=== PATIENT | male | born 1945 | race Caucasian/White ===

== ENCOUNTER 2022-07-07 11:53 | Outpatient (CLI) | payer MEDICARE, BC, SELFPAY ==
--- OUTSIDE RECORDS SUMMARY | 2022-07-07 11:56 | XMS_ITS | Encounter Summary ---
:1945 Author Organization [facility] Address [address] [place] [address] Care Team Providers Name Role Phone Kendy Bahena, Ch.B. Primary Care Provider [phone] Reason for Referral Outpatient (Routine) - Closed Specialty Diagnoses / Procedures Referred By Contact Refer red To Contact Diagnoses Elevated Prostate-Specific Antigen Alexy Yuan M.D. [facility] Procedures URO Prostate transperineal biopsy [address] [place] [address] Referral ID Status Reason Start Date Expiration Date Visits Requ ested Visits Authorized [id number] Closed 06/06/2022 06/06/2023 1 1 Encounter Details Date Type Department Care Team Description 06/06/2022 Documentation Department of Urology in Kathy Yuan M.D. [place], [place] [address] [facility] [address] [place] [phone] (Wo rk) Social History Tobacco Use Types Packs/Day Years Used Date Smoking Tobacco: Never Smokeless Tobacco: Never Alcohol Use Standard Drinks/Week Comments Yes 6 (1 standard drink = 0.6 oz pure alcoho l) Alcohol Habits Answer Date Recorded How often do you have a drink containing 4 or more times a w resighini 02/05/2022 alcohol? How many drinks containing alcohol do you have 1 or 2 04/15/2021 on a typical day when you are drinking? How often do you have six or more drinks on one Never 02/05/2022 occasion? Social Isolation Answer Date Recorded In a typical week, how many times do you More than three sandrita es a week 04/15/2021 talk on the phone with family, friends, or neighbors? How often do you get together with friends Three times a wee k 02/05/2022 or relatives? How often do you attend mormonism or More than 4 times per year 04/15/2021 hinduism services? Do you belong to any clubs or Yes 02/05/2022 organizations such as mormonism groups, unions, fraternal or athletic groups, or school groups? How often do you attend meetings of the More than 4 times pe r year 02/05/2022 clubs or organizations you belong to? Are you now , , , 02/05/2022 , never or living with a partner? Physical Activity Answer Date Recorded On average, how many days per week do you engage in moderate to 4 days 02/05/2022 strenuous exercise (like walking fast, running, jogging, dancing, swimming, biking, or other activities that cause a light or heavy sweat)? On average, how many minutes do you engage in exercise at th is 60 min 04/15/2021 level? Stress Answer Date Recorded Do you feel stress - tense, restless, nervous, or Only a lit tle 02/05/2022 anxious, or unable to sleep at night because your mind is troubled all the time - these days? Financial Resource Strain Answer Date Recorded How hard is it for you to pay for the very basics like Not h sylvia at all 02/05/2022 food, housing, medical care, and heating? Intimate Partner Violence Answer Date Recorded Within the last year, have you been afraid of your partner o r No 02/05/2022 ex-partner? Within the last year, have you been humiliated or emotionall y No 04/15/2021 abused in other ways by your partner or ex-partner? Within the last year, have you been kicked, hit, slapped, or No 02/05/2022 otherwise physically hurt by your partner or ex-partner? Within the last year, have you been raped or forced to have any No 04/15/2021 kind of sexual activity by your partner or ex-partner? Food Insecurity Answer Date Recorded Within the past 12 months, you worried that your food would Never true 02/05/2022 run out before you got money to buy more. Within the past 12 months, the food you bought just didn't N ever true 02/05/2022 last and you didn't have money to get more. Transportation Needs Answer Date Recorded In the past 12 months, has lack of transportation kept you f rom No 02/05/2022 medical appointments or from getting medications? In the past 12 months, has lack of transportation kept you f rom No 02/05/2022 meetings, work, or getting things needed for daily living? Housing Stability Answer Date Recorded In the last 12 months, was there a time when you were not ab le No 02/05/2022 to pay the mortgage or rent on time? In the last 12 months, how many places have you lived? 3 02/05/2022 In the last 12 months, was there a time when you did not hav e a No 02/05/[address] or slept in a group home (including now)? Education Answer Date Recorded What is the highest level of school Master's degree (e.g., M A, MS, 03/28/2019 you have completed or the highest Doreen, MEd, VENTILATED RIB FITTER, EMELYN) degree you have received? Sex Assigned at Date Recorded Male 03/27/2018 8:35 PM CDT documented as of this encounter Progress Notes Alexy Yuan M.D. - 06/06/2022 12:56 PM CDT I attempted to call Mr. Sheldon by phone but was again unable to reach him. I did leave a message. He is interested in pursuing a prostate biopsy. He will need a urine culture 10 days prior to the biopsy. He may obtain this locally through his family medical doctor or alternatively, I have placed an order for urine culture if there is a facility near [place] where he may have the urine culture drawn. The office biopsy order has been placed. [facility] sent a prescription for Bactrim to be taken 1 hour prior to the biopsy. I requested he call our appointment line to schedule the biopsy. Also did inform him by message that the biopsy would unlikely be able to be done within the next 10 days and he would be unlikely to have a follow-up visit in the next 10 days. I will send him a portal message with the specifics of the biopsy. We will be pursuing a transperineal biopsy procedure. The risks include infection, bleeding, temporary erectile dysfunction, as well as potential of vasovagal response given that a transrectal probe isstill introduced for purposes of imaging the prostate. You will be on your back with your legs up in stirrups. This procedure would be performed under local anesthesia. Local anesthesia will be administered to the perineum and thus you should only feel pressure sensation during the biopsy No enema is needed. documented in this encounter Plan of Treatment Upcoming Encounters Date Type Specialty Care Team Description 07/22/2022 Office Visit Urology Alexy Yuan M .D. [address] [place] [address] [phone] (Meir cronin) 07/22/2022 Appointment Radiation Oncology Sun oHpe M.D., Ph.D. [address] [place] [address] [phone] (Meir cronin) documented as of this encounter Results [place] BIOPSY PROSTATE NEEDLE/PUNCH, [place] MRI IMAGE FUSION (06/29/2022 9:00 AM CDT) Specimen (Source) Anatomical Location Collection Method / Collectio n Time Received Time / Laterality Volume Narrative Concepción Yao APRN, C.N.P., D.N.P. - 06/29/2022 9:00 AM CDT Concepción Yao APRN C.N.P., D.N.P. ? 06/29/2022 ??9:57 AM URO Prostate transperineal biopsy Performed by: Concepción Yao APRN, C .N.P., D.N.P. Authorized by: Alexy Yuan M.D. Care team members present 1. Concepción Yao APRN, C.N.PJulian, D.N. P. 2. Jackeline Montes L.P.N. 3. Tasneem Malloy L.P.N. IMPRESSION ?? indeterminate prostate lesion PROCEDURE DETAILS Position: ??Dorsal lithotomy Biopsy option(s) include: MR Fusion Biopsy type: transperineal Antibiotics at time of procedure: yes ?? Region(s) of interest: ??CHARLES #1 CHARLES # 1 - location: ??right, transitiona l/central zone, anterior CHARLES # 1 - PiRADS: ??5 CHARLES # 1 - number of cores: ??4 BIOPSY DETAILS ?? Systemic biopsy completed at time of pro cedure: yes ?Right prostate lobe - number of biops ies: ??6 ??Left prostate lobe - number of biopsi es: ??7 Seminal vesicle biopsy NOT completed at time of procedure: Seminal vesicle biopsy ULTRASOUND DETAILS: URONAV 3D used to localize target, iden tify at risk structures, and dynamically used to direct therapy to th e target. Image(s) acquired and saved. ADDITIONAL DETAILS: Known prostate cancer: no ?? History of prior negative prostate biops y: yes ?? Is this the first prostate biopsy?: no ? ? CONSENT Consent obtained: written UNIVERSAL PROTOCOL All relevant documentation and testing w ere reviewed and available. All required blood products, implants, devic es and or special equipment were made available as applicable. Pre-proced ure verification was conducted and the correct site was marked if required. A fire risk assessment was done as applicable. The procedural time-out t o verify correct patient, correct side/site, and procedure was conducted p rior to performing the procedure and confirmed in a procedural pause. PRE PROCEDURE DETAILS Procedure purpose: ??Diagnostic Indications: ??Elevated PSA Digital rectal exam findings: ??Asymmetr ical, increasing prominence noted along right lateral apex Appropriate hand hygiene, gown, cap, mas k, protective eyewear, sterile gloves, skin preparation, sterile drape, and strict aseptic technique were utilized as applicable for the procedure .: yes ?? Skin preparation: ??Chlorhexidine SEDATION / ANESTHESIA Anesthesia method: local infiltration POST PROCEDURE DETAILS Procedure completed successfully: yes ?? Complications: ??None COMMENTS Ultrasound imaging utilized to assist in biopsying target lesion. ??Images saved. Pain scale (1-10) during local infiltrat ion: 3/10 Pain scale (1-10) during prostate biopsy : 3/10 Prostate measurements: Length (mm) ??41.2 Height (mm) 29.5 Width (mm) 49.0 Volume 31.1 Alexy Yuan M.D. UROLOGY ORDERABLES (ABNORMAL) Bacterial Culture, Aerobic + Susc, Urine (06/17/2022 2:11 PM CDT) [facility] gist Method Time Signature Urine Culture Mixed 06/18/2022 [facility] microbiota (A) 3:36 PM CDT Specimen Anatomical Collection Method Collection Time Receive d Time (Source) Location / / Volume Laterality Urine (Urine, 06/17/2022 2:11 PM 06/17/20 7:30 Midstream) CDT PM CDT Comment: Specimen Source Site: Urine Alexy Yuan M.D. LAB MICROBIOLOGY - GENERAL O RDERABLES Performing Organization Address City/State/ZIP Code Phon e Number [facility]- [address] [place], [place] [id number] [place] [address] [address] documented in this encounter Visit Diagnoses Diagnosis Elevated Prostate-Specific Antigen - Kathryn young Elevated Prostate-Specific Antigen - Kathryn young documented in this encounter Care Teams Sourcing Associate Relationship Specialty Start Date End Date Kendy Bahena M.B., Ch.B. PCP - General 02/26/22 [address] [place] [phone] documented as of this encounter
--- OUTSIDE RECORDS SUMMARY | 2022-07-07 11:56 | XMS_ITS | Encounter Summary ---
:1945 Author Organization [facility] Address [address] [place] [address] Care Team Providers Name Role Phone Kendy Bahena, Ch.B. Primary Care Provider [phone] Encounter Details Date Type Department Care Team Description 06/29/2022 Ancillary Procedure Department of Urology Social History Tobacco Use Types Packs/Day Years Used Date Smoking Tobacco: Never Smokeless Tobacco: Never Alcohol Use Standard Drinks/Week Comments Yes 6 (1 standard drink = 0.6 oz pure alcoho l) Alcohol Habits Answer Date Recorded How often do you have a drink containing 4 or more times a w elim ira 02/05/2022 alcohol? How many drinks containing alcohol [...] or relatives? How often do you attend restoration or More than 4 times per year 04/15/2021 bahai services? Do you belong to any clubs or Yes 02/05/2022 organizations such as restoration groups, unions, fraternal or athletic groups, or [...] place to sleep or slept in a snf (including now)? Education Answer Date Recorded What is the highest level of school Master's degree (e.g., M [place], MS, 03/28/2019 you have completed or the highest Doreen, MEd, ORGAN ASSEMBLER, EMELYN) degree you have received? Sex Assigned at Date Recorded Male 03/27/2018 8:35 PM CDT documented as of this encounter Plan of Treatment Upcoming Encounters Date Type Specialty Care Team Description 07/22/2022 Office Visit Urology Alexy Yuan M .D. [address] [place] [address] [phone] (Wo rk) 07/22/2022 Appointment Radiation Oncology Sun Hope M.D., Ph.D. [address] [place] [address] [phone] (Wo rk) documented as of this encounter Procedures Procedure Name Priority Date/Time Associated Diagnosis Comme nts UROLOGY IMAGE EXAM Routine 06/29/2022 9:10 AM Res ults for this CDT procedure are i n the results section. documented in this encounter Results Non-Radiology Image-Urology Image Exam (06/29/2022 9:10 AM CDT) Specimen (Source) Anatomical Collection Method Collection Time Re ceived Time Location / / Volume Laterality 06/29/2022 9:07 AM CDT Narrative [facility] - 06/29/2022 9:30 AM CDT This order has been created and auto-finalized to support the import of images acquired without order. The clini opal documentation to support these images can be found on the encounter boris t produced images. Provider Not In System IMG NON RAD IMAGING PROCEDUR ES Performing Organization Address City/State/ZIP Code Phon e Number [facility] NA documented in this encounter Visit Diagnoses Not on filedocumented in this encounter Care Teams Conservation Coordinator Relationship Specialty Start Date End Date Parpia, Kendy A, M.B., Ch.B. PCP - General 02/26/22 [address] [place] [phone] documented as of this encounter
--- OUTSIDE RECORDS SUMMARY | 2022-07-07 11:56 | XMS_ITS | Encounter Summary ---
:1945 Author Organization [facility] Address [address] [place] [address] Care Team Providers Name Role Phone Kendy Bahena, Ch.B. Primary Care Provider Reason for Referral MRI/CAT/PET Scan (Routine) - Closed Specialty Diagnoses / Procedures Referred By Contact Refer red To Contact Radiology Diagnoses Elevated Prostate-Specific Antigen Koffi Garrido M.D. [facility] Procedures MR Prostate without and with IV Contrast [address] [place] [phone] Referral ID Status Reason Start Date Expiration Date Visits Requ ested Visits Authorized [id number] Closed 06/11/2022 06/11/2023 1 1 Reason for Visit MRI/CAT/PET Scan (Routine) - Closed Specialty Diagnoses / Procedures Referred By Contact Refer red To Contact Radiology Diagnoses Elevated Prostate-Specific Antigen Koffi Garrido M.D. [facility] Procedures MR Prostate without and with IV Contrast [address], [place] [address] Referral ID Status Reason Start Date Expiration Date Visits Requ ested Visits Authorized [id number] Closed 06/11/2022 06/11/2023 1 1 Encounter Details Date Type Department Care Team Description 06/18/2022 Hospital Encounter Department of Trent GarridoTwyla M.D. Prostate-Specific Building, in [address] [place], [place] [address] [place] [phone] Social History Tobacco Use Types Packs/Day Years Used Date Smoking Tobacco: Never Smokeless Tobacco: Never Alcohol Use Standard Drinks/Week Comments Yes 6 (1 standard drink = 0.6 oz pure alcoho l) Alcohol Habits Answer Date Recorded How often do you have a drink containing 4 or more times a w apache 02/05/2022 alcohol? How many drinks containing alcohol [...] or relatives? How often do you attend gnosticism or More than 4 times per year 04/15/2021 mu-ism services? Do you belong to any clubs or Yes 02/05/2022 organizations such as gnosticism groups, unions, fraternal or athletic groups, or [...] place to sleep or slept in a intermediate (including now)? Education Answer Date Recorded What is the highest level of school Master's degree (e.g., M A, MS, 03/28/2019 you have completed or the highest Doreen, MEd, INDEPENDENT LIVING INSTRUCTOR, EMELYN) degree you have received? Sex Assigned at Date Recorded Male 03/27/2018 8:35 PM CDT documented as of this encounter Medications at Time of Discharge Medication Sig Dispensed Refills Start Date End Date acetaminophen (TYLENOL) Take 100 mg by mouth 0 500 mg tablet 3 (three) times a day. aspirin 81 mg chewable Chew 1 tablet daily. 0 03/2013 tablet atorvastatin (LIPITOR) 80 Take 1 tablet (80 mg 90 tablet 3 04/23/2022 mg tabletIndications: total) by mouth Coronary Artery Disease daily. Without Angina Pectoris, Hyperlipidemia cefdinir (OMNICEF) 300 mg Take 1 capsule (300 10 capsule 0 1 capsule mg total) by mouth 2 (two) times a day before breakfast and dinner. losartan (COZAAR) 50 mg Take 1 tablet (50 mg 90 tablet 3 tablet total) by mouth daily. metoprolol succinate TAKE ONE TABLET BY 90 tablet 3 021 (TOPROL-XL) 25 mg 24 hr MOUTH EVERY DAY tabletIndications: Coronary Artery Disease Without Angina Pectoris, Hypertension Essential Primary nitroglycerin (NITROSTAT) Place 1 tablet (0.4 25 tablet 11 0 03/29/2019 0.4 mg SL mg total) under the tabletIndications: tongue as needed for Coronary Artery Disease chest pain. Place 1 Without Angina Pectoris tab under the tongue at first sign of chest pain. If no relief in 5 min, call 911. Repeat dose every 5 min up to 2 additional doses if chest pain continues. sulfamethoxazole-trimetho 0 06/06/2022 prim (BACTRIM DS) 800-160 mg per tablet documented as of this encounter Nursing Notes Cami Garvin R.N. - 06/18/2022 5:45 PM CDT Glucagon Administration Screening: Does patient have an allergy to glucagon or lactose (e.g. hives, difficulty breathing, anaphylaxis, necrolytic migratory erythema)? Note: nausea vomiting, bloating, and diarrhea are common and expected adverse effects of glucagon and/or lactose intolerance. NO If no???continue. Does patient have a history of insulinoma or phenochromocytoma? NO If no???continue. If yes, discusswith Radiologist. Does patient have diabetes? NO If no.. continue.. If yes??? initiate nurse initiated protocol to order POC blood glucose . If yes and insulin dependent, provide patient with Glucagon Injections if you Have Diabetes card. What is patient's glucose? Not diabetic - less than 70 treat f using Hypoglycemia Nurse Initiated Protocol - between 70 and 300 administer medication as ordered. - greater than 300 notify radiologist and do not administer medication. Is patient safe to receive Glucagon YES If yes.. Administer Glucagon as outlined in order. Does the patient need to remain NPO following scan for additional appointments today? NO documented in this encounter Plan of Treatment Upcoming Encounters Date Type Specialty Care Team Description 07/22/2022 Office Visit Urology Alexy Yuan M .D. [address] [place] [phone] (Wo rk) 07/22/2022 Appointment Radiation Oncology Sun Hope M.D., Ph.D. [address] [place] [address] [phone] (Wo rk) documented as of this encounter Procedures Procedure Name Priority Date/Time Associated Comments Diagnosis MR PROSTATE RAD - Routine 06/18/2022 5:59 Elevated Results for this WITHOUT AND WITH (most inpatients PM CDT Prostate-Specific pr ocedure are in IV CONTRAST and all Antigen the results outpatients) section. documented in this encounter Results MR Prostate without and with IV Contrast (06/18/2022 5:59 PM CDT) Anatomical Region Laterality Modality Pelvis, Abdominal RST LOS, Abdominal ARZ LOS, Abdominal N/A Magnetic Resonance FLA LOS Specimen (Source) Anatomical Collection Method Collection Time Re ceived Time Location / / Volume Laterality 06/19/2022 12:24 PM CDT Impressions 06/19/2022 1:16 PM CDT 1. PIRADS 5- Very high (clinically significant cancer is highly likely to be present). 2. Bilateral joint effusion with synovia l/peripheral hyperenhancement along the hips, greater on the left. Consider dedicated evaluation. Narrative 06/19/2022 1:16 PM CDT EXAM: MR PROSTATE WITHOUT AND WITH IV CONTRAST CLINICAL HISTORY: Screening - biopsy hugh ve. Most Recent PSA 10.3 ng/mL on 05/28/2022. COMPARISON: 05/12/2021 PROSTATE: Volume: 30cc ?(PSA density 0.34) Exam quality: Bilateral hip prostheses w ith artifact overlying the pelvis prostate, which limits evaluation.. Peripheral zone: Poorly defined low sign al intensity and linear low signal intensities. Homogeneous low signal intensity is in the right ant erior mid gland to apex extending to the midline anterior apex and base(lesion 1) Transition zone: The peripheral zone les ion is extending to the transition zone. Lesion # 1 Size: 2.2 x 1.2 x 2.4cm, cc Zone: Transition zone to peripheral zone Location: Right anterior at mid gland to apex and extension to the midline apex and base. (On image 26 series 4) T2WI: Relatively homogeneous low signal intensity (T2WI score 4) DWI: Moderate diffusion restriction. (AD C: 660, ) (DWI score 4) DCE: Positive. Overall category: PIRADS 4- High (clinic ally significant cancer is likely to be present). LOCAL STAGING: Capsule: Contour bulging with loss of th e low signal intensity capsule, suspicious for capsular penetration. Neurovascular bundle invasion: Absent Seminal vesicles invasion: Absent Other organ invasion: Probable abutment with bladder base. LYMPH NODES: Indeterminate for suspiciou s lymph node(s). 6 mm left external iliac lymph node on images 37 series 12. BONES: Negative for suspicious bone lesi on(s). OTHER FINDINGS: Cyst in the left kidney upper pole measuring about 13 cm. Joint effusion with peripheral hyperenhancement along the bi lateral hip, greater on the left. Consider dedicated evaluation. PROSTATE MRI TECHNIQUE: Multiparametric MRI of the prostate was performed at [address] with surface coil. High resolution T2WI, DWI/ADC, and DCE imaging with IV contrast performed. Procedure Note Jai Sosa M.D. - 06/19/2022 EXAM: MR PROSTATE WITHOUT AND WITH IV CO NTRAST CLINICAL HISTORY: Screening - biopsy hugh ve. Most Recent PSA 10.3 ng/mL on 05/28/2022. COMPARISON: 05/12/2021 PROSTATE: Volume: 30cc (PSA density 0.34) Exam quality: Bilateral hip prostheses w ith artifact overlying the pelvis prostate, which limits evaluation.. Peripheral zone: Poorly defined low sign al intensity and linear low signal intensities. Homogeneous low signal intensity is in the right ant erior mid gland to apex extending to the midline anterior apex and base(lesion 1) Transition zone: The peripheral zone les ion is extending to the transition zone. Lesion # 1 Size: 2.2 x 1.2 x 2.4cm, cc Zone: Transition zone to peripheral zone Location: Right anterior at mid gland to apex and extension to the midline apex and base. (On image 26 series 4) T2WI: Relatively homogeneous low signal intensity (T2WI score 4) DWI: Moderate diffusion restriction. (AD C: 660, ) (DWI score 4) DCE: Positive. Overall category: PIRADS 4- High (clinic ally significant cancer is likely to be present). LOCAL STAGING: Capsule: Contour bulging with loss of th e low signal intensity capsule, suspicious for capsular penetration. Neurovascular bundle invasion: Absent Seminal vesicles invasion: Absent Other organ invasion: Probable abutment with bladder base. LYMPH NODES: Indeterminate for suspiciou s lymph node(s). 6 mm left external iliac lymph node on images 37 series 12. BONES: Negative for suspicious bone lesi on(s). OTHER FINDINGS: Cyst in the left kidney upper pole measuring about 13 cm. Joint effusion with peripheral hyperenhancement along the bi lateral hip, greater on the left. Consider dedicated evaluation. PROSTATE MRI TECHNIQUE: Multiparametric MRI of the prostate was performed at [address] with surface coil. High resolution T2WI, DWI/ADC, and DCE imaging with IV contrast performed. IMPRESSION: 1. PIRADS 5- Very high (clinically signi ficant cancer is highly likely to be present). 2. Bilateral joint effusion with synovia l/peripheral hyperenhancement along the hips, greater on the left. Consider dedicated evaluation. Koffi SHEFFIELD MRI PROCEDURES documented in this encounter Visit Diagnoses Diagnosis Elevated Prostate-Specific Antigen documented in this encounter Administered Medications Inactive Administered Medications - up to 3 most recent administrations Medication Order MAR Action Action Date Dose Rate Site gadoterate meglumine 0.5 mmol/mL Given 06/18/2022 5:54 PM CDT 18 mL (376.9 mg/mL) injection 1.6-20 mL (DOTAREM) 1.6-20 mL, intravenous, Once in imaging, contrast, Starting on Senia 06/18/22 at 1703, For 1 dose, Imaging Protocol Orders, Dose per Radiant Medication Guidelines glucagon injection 0.5-1 mg Given 06/18/2022 5:23 PM CDT 1 mg Left Upper Arm (GlucaGen) (Back) 0.5-1 mg, subcutaneous, Once, On Senia 06/18/22 at 1715, For 1 dose, Imaging Protocol Orders sodium chloride (PF) 0.9 % injection 1-1 00 mL Given 06/18/2022 5:55 PM CDT 20 mL 1-100 mL, intravenous, Once, On Senia 06/18/22 at 1715, For 1 dose, Imaging Protocol Orders documented in this encounter Care Teams Sandal Parts Assembler Relationship Specialty Start Date End Date Kendy Bahena M.B., Ch.B. PCP - General 02/26/222199 [address] [address] documented as of this encounter
--- OUTSIDE RECORDS SUMMARY | 2022-07-07 11:56 | XMS_ITS | Encounter Summary ---
:1945 Author Organization [facility] Address [address] [place] [address] Care Team Providers Name Role Phone Kendy Bahena, Ch.B. Primary Care Provider [phone] Reason for Referral Outpatient (Routine) - Authorized Specialty Diagnoses / Procedures Referred By Contact Refer red To Contact Urology Alexy Yuan M.D. [facility] [address] [place] [phone] Referral ID Status Reason Start Date Expiration Date Visits V isits Requested Authorized [id number] Authorized 07/05/2022 07/04/2025 1 1 Scheduling Instructions May add on ONLY for 8 AM on 07/22 or 07/14 0. Encounter Details Date Type Department Care Team Description 07/05/2022 Documentation Department of Urology in Kathy Yuan M.D. [address] [place] [phone] (Wo rk) Social History Tobacco Use Types Packs/Day Years Used Date Smoking Tobacco: Never Smokeless Tobacco: Never Alcohol Use Standard Drinks/Week Comments Yes 6 (1 standard drink = 0.6 oz pure alcoho l) Alcohol Habits Answer Date Recorded How often do you have a drink containing 4 or more times a w [place] 02/05/2022 alcohol? How many drinks containing alcohol [...] or relatives? How often do you attend shinto or More than 4 times per year 04/15/2021 jehovah's witness services? Do you belong to any clubs or Yes 02/05/2022 organizations such as shinto groups, unions, fraternal or athletic groups, or [...] place to sleep or slept in a skilled nursing (including now)? Education Answer Date Recorded What is the highest level of school Master's degree (e.g., M A, MS, 03/28/2019 you have completed or the highest Doreen, MEd, DIRECTOR SPEECH, EMELYN) degree you have received? Sex Assigned at Date Recorded Male 03/27/2018 8:35 PM CDT documented as of this encounter Progress Notes Alexy Yuan M.D. - 07/05/2022 1:57 PM CDT Many attempts have been made to reach Mr. Sheldon to discuss his care. Unfortunately, it has been extraordinarily difficult to connect with him by phone. We have left several voice messages, and have communicated via the portal. But again, has been very difficult to connect with him by phone. I understand his frustration, however, we have made attempts on our end several times to reach him by phone. I have left him a voice message and have notified him that he should schedule a follow-up appointment with me in the office to discuss the biopsy results so that we avoid missing each other by the phone and avoid any frustration on his end. I have informed him that I will not be able to visit with him this upcoming week, but can visit withhim either the week or the week of July. I have given him my appointment line number that he may call to schedule this. documented in this encounter Plan of Treatment Upcoming Encounters Date Type Specialty Care Team Description 07/22/2022 Office Visit Urology Alexy Yuan M .D. [address] [place], [place] [phone] (Wo rk) 07/22/2022 Appointment Radiation Oncology Sun Hope M.D., Ph.D. [address] [place], [place] [phone] (Wo rk) Scheduled Referrals Name Type Priority Associated Diagnoses Order [facility] Urology office Outpatient Referral Routine Expect ed: visit (clinic) 07/22/2022, Expires: 10/05/2023 documented as of this encounter Visit Diagnoses Not on filedocumented in this encounter Care Teams Special Education Educational Assistant Relationship Specialty Start Date End Date Kendy Bahena M.B., Ch.B. PCP - General 02/26/22 [address] [address] documented as of this encounter
--- OUTSIDE RECORDS SUMMARY | 2022-07-07 11:56 | XMS_ITS | Encounter Summary ---
:1945 Author Organization [facility] Address [address] [place] [address] Care Team Providers Name Role Phone Kendy Bahena, Ch.B. Primary Care Provider Reason for Referral Outpatient (Routine) - Closed Specialty Diagnoses / Procedures Referred By Contact Refer red To Contact Urology Koffi Garrido M.D. [facility] [address] [place] [address] Referral ID Status Reason Start Date Expiration Date Visits Requ ested Visits Authorized [id number] Closed 06/11/2022 06/10/2025 1 1 RI/CAT/PET Scan (Routine) - Closed Specialty Diagnoses / Procedures Referred By Contact Refer red To Contact Radiology Diagnoses Elevated Prostate-Specific Antigen Koffi Garrido M.D. [facility] Procedures MR Prostate without and with IV Contrast [address] [place] [address] Referral ID Status Reason Start Date Expiration Date Visits Requ ested Visits Authorized [id number] Closed 06/11/2022 06/11/2023 1 1 Reason for Visit Reason Comments Follow-up PSA Appointment Request (Routine) - Closed Specialty Diagnoses / Procedures Referred By Contact Refer red To Contact Urology Referral ID Status Reason Start Date Expiration Date Visits Requ ested Visits Authorized [id number] Closed 06/09/2022 06/09/2023 1 1 Encounter Details Date Type Department Care Team Description 06/11/2022 Office Visit Department of Urology Koffi Garrido Ele vated in Jessica Stoddard M.D. Prostate-Specific [address] (Primary Dx) [place] [phone] Social History Tobacco Use Types Packs/Day Years Used Date Smoking Tobacco: Never Smokeless Tobacco: Never Tobacco Cessation: Counseling Given: Not Answered Alcohol Use Standard Drinks/Week Comments Yes 6 (1 standard drink = 0.6 oz pure alcoho l) Alcohol Habits Answer Date Recorded How often do you have a drink containing 4 or more times a w [place] 02/05/2022 alcohol? How many drinks containing alcohol [...] or relatives? How often do you attend sikh or More than 4 times per year 04/15/2021 taoism services? Do you belong to any clubs or Yes 02/05/2022 organizations such as sikh groups, unions, fraternal or athletic groups, or [...] minutes do you engage in exercise at is 60 min 04/15/2021 level? Stress Answer [...] place to sleep or slept in a prison (including now)? Education Answer Date Recorded What is the highest level of school Master's degree (e.g., M A, MS, 03/28/2019 you have completed or the highest Doreen, MEd, EDITORIAL INTERN, EMELYN) degree you have received? Sex Assigned at Date Recorded Male 03/27/2018 8:35 PM CDT documented as of this encounter Progress Notes Koffi Garrido M.D. - 06/11/2022 9:00 AM CDT SUBJECTIVE CHIEF COMPLAINT / REASON FOR VISIT Elevated prostate specific antigen HISTORY OF PRESENT ILLNESS Dane Sheldon Jr. is a 76 y.o. male who has a history of an elevated prostate specific antigen as outlined in the table below: July 06, 2012 2.0 June 19, 2013 2.1 July 02, 2014 2.26 July 05, 2015 3.1 March 19, 2016 3.4 April 01, 2017 3.6 March 30, 2018 3.4 March 27, 2019 4.0 April 17, 2021 10.1 April 21, 2021 9.9 November 10, 2021 6.6 May 28, 2022 10.3 Prostate MRI was performed on May 12, 2021. This revealed a 35 g prostate, for a prostate specific antigen density of 0.28 (upper limits of normal 0.15). PIRADS two. Evaluation was felt to be somewhat limited secondary to a left hip arthroplasty. Transrectal prostate ultrasound was performed in [place] on June 02, 2021. Results follow: FINAL DIAGNOSIS A. Prostate, left, needle core biopsy: Atypical small glands suspicious for, but not diagnostic of, malignancy. B. Prostate, right, needle core biopsy: Benign prostatic tissue. The patient had a right total hip arthroplasty performed four weeks ago. He is also started having some nocturia and some decreased force of stream. He is currently scheduled for a transperineal biopsy in [place] next month. The patient has a multitude of questions regarding why his prostate specific antigen is elevated, why it dropped last October, why he is being scheduled for a transperineal as opposed to a transrectal biopsy. The following portions of the patient's history were reviewed and updated as appropriate: allergies,current medications, family history, medical history, social history, surgical history and problem list. ASSESSMENT / PLAN #1 Elevated Prostate-Specific Antigen PLAN: The patient and I spent approximately 25 to 30 minutes together. All of this time was spent counseling and coordinating care. We reviewed his prostate specific antigen history. We discussed the differential diagnosis for an elevated prostate specific antigen which might include prostate inflammation, b enign prostatic hypertrophy, and prostate cancer. We explained that most prostate cancers are asymptomatic, at least early in the process. The vast majority of prostate cancers are slow growing. We discussed the risks associated with doing a biopsy in a relatively new total arthroplasty. Explained that the risk of a transrectal biopsy is very high, and it is less significantly high with a transperineal biopsy. We also discussed the possibility of repeating the MRI, or simply repeating a prostate specific antigen in six months. We agreed to repeat the prostate specific antigen. The patient was informed that there might be somefurther degradation in the image as a result of now having two arthroplasties. We will plan to see him in follow-up shortly after the MRI. A copy of the MRI results will also be forwarded to Dr. Yuan in [place]. Koffi Garrido M.D. 06/11/22 9:47 AM CDT documented in this encounter Plan of Treatment Upcoming Encounters Date Type Specialty Care Team Description 07/22/2022 Office Visit Urology Alexy Yuan M .D. [address] [place] [phone] (Meir cronin) 07/22/2022 Appointment Radiation Oncology Sun Hope M.D., Ph.D. [address] [place], [place] [phone] (Meir cronin) Scheduled Referrals Name Type Priority Associated Diagnoses Order S tim Urology office Outpatient Referral Routine Expect ed: visit (clinic) 06/11/2022 (Approximate), Expires: 09/10/2023 documented as of this encounter Results MR Prostate without and [...] of the prostate was performed at [address] [place] with surface coil. High resolution T2WI, DWI/ADC, [...] on the left. Consider dedicated evaluation. Koffi Garrido M.D. [facility] MRI PROCEDURES documented in this encounter Visit Diagnoses Diagnosis Elevated Prostate-Specific Antigen - Kathryn young Elevated Prostate-Specific Antigen documented in this encounter Care Teams Tube Sorter Relationship Specialty Start Date End Date Kendy Bahena M.B., Ch.B. PCP - General 02/26/[address] [phone] documented as of this encounter
--- OUTSIDE RECORDS SUMMARY | 2022-07-07 11:56 | XMS_ITS | Encounter Summary ---
:1945 Author Organization [facility] Address [address] [place] [address] Care Team Providers Name Role Phone Kendy Bahena, Ch.B. Primary Care Provider [phone] Encounter Details Date Type Department Care Team Description 06/06/2022 Orders Only Department of Urology in Kathy Yuan M.D. [place], [place] [address] [facility] [address] [place] [phone] [phone] (Wo rk) Social History Tobacco Use Types Packs/Day Years Used Date Smoking Tobacco: Never Smokeless Tobacco: Never Alcohol Use Standard Drinks/Week Comments Yes 6 (1 standard drink = 0.6 oz pure alcoho l) Alcohol Habits Answer Date Recorded How often do you have a drink containing 4 or more times a w [place] 02/05/2022 alcohol? How many drinks containing alcohol [...] or relatives? How often do you attend tenriism or More than 4 times per year 04/15/2021 faith services? Do you belong to any clubs or Yes 02/05/2022 organizations such as tenriism groups, unions, fraternal or athletic groups, or [...] place to sleep or slept in a chcf (including now)? Education Answer Date Recorded What is the highest level of school Master's degree (e.g., Shakeel Cuellar, , 03/28/2019 you have completed or the highest Doreen, MEd, LEGAL RESEARCH ANALYST, EMELYN) degree you have received? Sex Assigned at Date Recorded Male 03/27/2018 8:35 PM CDT documented as of this encounter Plan of Treatment Upcoming Encounters Date Type Specialty Care Team Description 07/22/2022 Office Visit Urology Alexy Yuan M .D. [address] [place], [place] [phone] (Wo rk) 07/22/2022 Appointment Radiation Oncology Sun Hope M.D., Ph.D. [address] [place], [place] [phone] (Wo rk) documented as of this encounter Visit Diagnoses Not on filedocumented in this encounter Care Teams Medical Information Specialist Relationship Specialty Start Date End Date Kendy Bahena M.B., Ch.B. PCP - General 02/26/22 [address] [place] [phone] documented as of this encounter
--- OUTSIDE RECORDS SUMMARY | 2022-07-07 11:56 | XMS_ITS | Encounter Summary ---
:1945 Author Organization [facility] Address [address] [place] [address] Care Team Providers Name Role Phone Kendy Bahena, Ch.B. Primary Care Provider [phone] Encounter Details Date Type Department Care Team Description 06/17/2022 Hospital Encounter Department of Alexy Yuan Elevat ed Laboratory Medicine M.DJulian Prostate-Specific in [place], [facility] [address] [place], [place] [address] [address] [place], [place] [phone] [address] (Work) [phone] Social History Tobacco Use Types Packs/Day Years Used Date Smoking Tobacco: Never Smokeless Tobacco: Never Alcohol Use Standard Drinks/Week Comments Yes 6 (1 standard drink = 0.6 oz pure alcoho l) Alcohol Habits Answer Date Recorded How often do you have a drink containing 4 or more times a w [place] 02/05/2022 alcohol? How many drinks containing alcohol [...] or relatives? How often do you attend quaker or More than 4 times per year 04/15/2021 caodaism services? Do you belong to any clubs or Yes 02/05/2022 organizations such as quaker groups, unions, fraternal or athletic groups, or [...] place to sleep or slept in a fdc (including now)? Education Answer Date Recorded What is the highest level of school Master's degree (e.g., Shakeel Cuellar, [place], 03/28/2019 you have completed or the highest Doreen, MEd, POWER PRESS SUPERVISOR, EMELYN) degree you have received? 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 sulfamethoxazole-trimethop 0 2 rim (BACTRIM DS) 800-160 mg per tablet documented as of this encounter Plan of Treatment Upcoming Encounters Date Type Specialty Care Team Description 07/22/2022 Office Visit Urology Alexy Yuan M .D. [address] [place], [place] [phone] (Wo rk) 07/22/2022 Appointment Radiation Oncology Sun Hope M.D., Ph.D. [address] [place], [place] [phone] (Wo rk) documented as of this encounter Procedures Procedure Name Priority Date/Time Associated Diagnosis Comme nts BACTERIAL CULTURE, Routine 06/17/2022 2:11 PM Elevated Res ults for this AEROBIC + SUSC, CDT Prostate-Specific procedu re are in URINE Antigen the results section. documented in this encounter Results (ABNORMAL) Bacterial Culture, Aerobic + Susc, Urine (06/17/2022 2:11 PM CDT) [facility] gist Method Time Signature Urine Culture Mixed 06/18/2022 [facility] microbiota (A) 3:36 PM CDT Specimen Anatomical Collection Method Collection Time Receive d Time (Source) Location / / Volume Laterality Urine (Urine, 06/17/2022 2:11 PM 06/17/20 7:30 Midstream) CDT PM CDT Comment: Specimen Source Site: Urine Alexy Yuan M.D. LAB MICROBIOLOGY - GENERAL O RDERABLES Performing Organization Address City/State/ZIP Code Phon e Number [facility]- [address] [place], [place] [id number] [place] [address] [address] documented in this encounter Visit Diagnoses Diagnosis Elevated Prostate-Specific Antigen documented in this encounter Care Teams Cash Register Servicer Relationship Specialty Start Date End Date Kendy Bahena M.B., Ch.B. PCP - General 02/26/22 [address] [place] [address] documented as of this encounter
--- OUTSIDE RECORDS SUMMARY | 2022-07-07 11:56 | XMS_ITS | Encounter Summary ---
:1945 Author Organization [facility] Address [address] [place] [address] Care Team Providers Name Role Phone Kendy Bahena, Ch.B. Primary Care Provider [phone] Reason for Visit Reason Comments Phone Contact Encounter Details Date Type Department Care Team Description 07/03/2022 Clinical Communication Department of Urology [facility] [place] [address] [facility] [address] [place] [phone] Social History Tobacco Use Types Packs/Day Years Used Date Smoking Tobacco: Never Smokeless Tobacco: Never Alcohol Use Standard Drinks/Week Comments Yes 6 (1 standard drink = 0.6 oz pure alcoho l) Alcohol Habits Answer Date Recorded How often do you have a drink containing 4 or more times a w [place] 02/05/2022 alcohol? How many drinks containing alcohol [...] or relatives? How often do you attend latter day or More than 4 times per year 04/15/2021 cheondoism services? Do you belong to any clubs or Yes 02/05/2022 organizations such as latter day groups, unions, fraternal or athletic groups, or [...] place to sleep or slept in a correction (including now)? Education Answer Date Recorded What is the highest level of school Master's degree (e.g., M [place], MS, 03/28/2019 you have completed or the highest Doreen, MEd, CAKE PRESS OPERATOR, EMELYN) degree you have received? Sex Assigned at Date Recorded Male 03/27/2018 8:35 PM CDT documented as of this encounter Miscellaneous Notes Telephone Encounter - María Vo - 07/03/2022 9:54 AM CDT Please call the patient regarding the results of his biopsy. He is upset he was told Dr. Real will call him this week but he said he still hasn't heard back at all. He is adamant to know what the nextsteps are and understandably worried as he can see it on his portal that he does have cancer. Patient only wants a phone call. He doesn't want to discuss matters on the portal. Thank you documented in this encounter Plan of Treatment Upcoming Encounters Date Type Specialty Care Team Description 07/22/2022 Office Visit Urology Alexy Yuan M .D. [address] [place] [phone] (Meir cronin) 07/22/2022 Appointment Radiation Oncology Sun Hope M.D., Ph.D. [address] [place] [phone] (Wo rk) documented as of this encounter Visit Diagnoses Not on filedocumented in this encounter Care Teams Jar Filler Relationship Specialty Start Date End Date Kendy Bahena M.B., Ch.B. PCP - General 02/26/[address] [phone] documented as of this encounter
--- OUTSIDE RECORDS SUMMARY | 2022-07-07 11:56 | XMS_ITS | Clinical Summary ---
:1945 Author Organization [facility] Address [address] [place] [address] Care Team Providers Name Role Phone Kendy Bahena, Ch.B. Primary Care Provider [phone] Source Comments Patient records contain information from all sites at [facility]. For routine questions regarding patient records, call [phone] during business hours, M-F 8:00 AM - 5:00 PM Central Time. Record requests for emergency care only can be directed to [phone] at any time.[facility] Allergies No known active allergies Medications Medication Sig Dispensed Refills Start Date End Date Status aspirin 81 mg chewable Chew 1 tablet 0 06/19/2013 Active tablet daily. nitroglycerin Place 1 tablet 25 tablet 11 03/29/2019 Active (NITROSTAT) 0.4 mg SL (0.4 mg total) tabletIndications: under the tongue Coronary Artery as needed for Disease Without Angina chest pain. Place Pectoris 1 tab under the tongue at first sign of chest pain. If no relief in 5 min, call 191. Repeat dose every 5 min up to 2 additional doses if chest pain continues. Additional Information Patient not taking. Reported on 06/22/2022 metoprolol succinate (TOPROL-XL) TAKE ONE TABLET BY 90 tablet 3 05/02/2021 Active 25 mg 24 hr tabletIndications: MOUTH EVERY DAY Coronary Artery Disease Without Angina Pectoris, Hypertension Essential Primary Additional Information Patient taking differently: 50 mg, Reported on 02/05/2022 losartan (COZAAR) 50 mg Take 1 tablet (50 90 tablet 3 04/23/20 22 Active tablet mg total) by mouth daily. atorvastatin (LIPITOR) Take 1 tablet (80 90 tablet 3 2 Active 80 mg tabletIndications: mg total) by mouth Coronary Artery Disease daily. Without Angina Pectoris, Hyperlipidemia acetaminophen (TYLENOL) Take 100 mg by 0 09/20/2019 Active 500 mg tablet mouth 3 (three) times a day. sulfamethoxazole-trimeth 0 06/06/2022 Active oprim (BACTRIM DS) 800-160 mg per tablet cefdinir (OMNICEF) 300 Take 1 capsule (300 10 capsule 0 2021 Active mg capsule mg total) by mouth 2 (two) times a day before breakfast and dinner. ibuprofen (ADVIL,MOTRIN) Take 400 mg by 0 05/13/2022 06/12/2022 400 mg tablet mouth. Hospital, Clinic, or Other Ordered Dose Route Frequency Start Date End Date Status Facility Administered Medication lidocaine 10 mg/mL (1 %) 30 mL inj Once 06/29/202206/13 Ended injection 30 mL (XYLOCAINE)Indications: Elevated Prostate-Specific Antigen Active Problems Patient Care Coordination Note Formatting of this note might be differe nt from the original. 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 07/05/2022 Documentation Urology Alexy Yuan M.D. 07/04/2022 Documentation Urology Kanika Real M.D., M.Ed. 07/03/2022 Clinical Urology Alexy Yuan Phone Contact Communication Michael Moreno 06/29/2022 Ancillary Procedure 06/29/2022 Procedure visit Urology Alexy Yuan M.D. Prostate-Specific Yao, Antigen (Primar y Dx) Concepción Spivey APRN, C.N.P., D.N.P. 06/22/2022 Office Visit Urology Hema, Elevated Prosta te-Specific Antigen (Primary Dx); Michael Rain Abnormal Magnet ic Resonance Imaging Prostate 06/21/2022 Orders Only Urology Alexy Yuan M.D. 06/18/2022 Hospital Encounter Radiology Hema, Trent Rain M.D. Prostate-Specif ic Antigen 06/18/2022 Orders Only Urology Alexy Yuan M.D. 06/17/2022 Hospital Encounter Laboratory Medicine Alexy Yuan M.D. Prostate-Specif ic Antigen 06/11/2022 Office Visit Urology Trent Garrido M.D. Prostate-Specif ic Antigen (Primar y Dx) 06/06/2022 Documentation Urology Alexy Yuan M.D. 06/06/2022 Orders Only Urology Alexy Yuan M.D. 06/02/2022 Clinical Urology Alexy Yuan Phone Contact Communication Michael Moreno 05/30/2022 Orders Only Kendy Bahena M.B., Ch.B. 05/29/2022 Clinical Urology Alexy Yuan M.D. 05/28/2022 Hospital Encounter Laboratory Medicine Alexy Yuan M.D. Prostate-Specif ic Antigen 04/30/2022 Hospital Encounter Laboratory Medicine Adalid Sliva At herosclerotic Heart Disease Of Kaw Coronary Artery Without Angina Pectoris; C, RUNNER MAN, Coronary Stent Status Post; C.N.P. Preoperative Ex amination Cardiovascular 04/30/2022 Hospital Encounter Laboratory Medicine Aadlid Silva At herosclerotic Heart Disease Of Kaw Coronary Artery Without Angina Pectoris; C, RUNNER MAN, Coronary Stent Status Post; C.N.P. Preoperative Ex amination Cardiovascular; Hypertension Es sential Primary 04/30/2022 Office Visit Cardiovascular Adalid Silva Atherosclerot ic Heart Disease Of Kaw Coronary Artery Without Angina Pectoris (Primary Dx); Disease C, RUNNER MAN, Coronary Stent Status Post; C.N.P. Hypertension Es sential Primary; Hyperlipidemia; Preoperative Ex amination Cardiovascular; Primary Osteoar thritis Hip Right 04/28/2022 Office Visit Family Medicine Emelia, Preoperative Exam Jewel Weber (Primary Dx) Michael Hilario 04/23/2022 [facility]ill [facility] Internal Parpia, [facility] Refi Medicine Polo, MJulianB., Ch.B. from Last 3 Months Immunizations Name Administration Dates Next Due HZV (ZOSTAVAX) 10/05/2009, 09/13/2008 HepA Adult 06/19/2013, 05/11/2007, 04/19/2006 HepB Adult 06/19/2013, 06/13/2012, 05/05/2012 HepB Pediatric/Adolescent 06/19/2013 HepB, Unspecified 06/13/2012, 05/05/2012 IPV 04/19/2006 Influenza (IM) Preservative Free 06/13/2015, 07/06/2012, , 06/10/2009 Influenza Split 08/05/2013 Influenza TIV (IM) 09/11/2011 Influenza high dose QV(65 years or 06/18/2021, 06/14/2020 older) (PF) Influenza, Quadrivalent, Adjuvanted, 06/22/2022 Preservative Free Influenza, Seasonal, Injectable 09/11/2011, 07/29/2007 Influenza, Unspecified 06/27/2016, 08/05/2013 PCV13 03/19/2016 PPSV23 04/16/2020, 06/16/2019 (Deferred: Other) RZV (SHINGRIX) 04/28/2022, 06/24/2021 (Deferred: Patient decision) SARS-COV-2 (COVID-19) - MODERNA 12/16/2021, 11/19/2020, 02/0 02/2021 Td (Adult), adsorbed 04/13/2006 Td, (Adult) Unspecified 04/13/2006 Tdap 03/19/2016 TyVi (inj) 04/25/2012 Zoster, Unspecified 03/11/2021 (Deferred: Other) influenza high dose (65 years or 06/16/2019, 05/30/2018, , older) (PF) 06/27/2016, 07/02/2014, 08/05/2013 Family History Medical History Relation Name Comments Alcoholic Brother Sandrita Prostate cancer Brother Sandrita Alcohol abuse Father Dane whelan Maybe Coronary artery disease Father Dane whelan Heart attack Father Dane whelan Heart disease Father Dane whelan Alcohol abuse Maternal Grandmother Sandrita No Known Problems Mother Heart disease Paternal Grandfather No Known Problems Sister Colon cancer Neg Hx Relation Name Status Comments Brother Sandrita Alive Father Dane whelan (Age 69) from heart att ack Maternal Grandmother Sandrita Mother (Age 89) from old age Paternal Grandfather (Age 45) Sister Alive Social History Tobacco Use Types Packs/Day Years Used Date Smoking Tobacco: Never Smokeless Tobacco: Never Tobacco Cessation: Counseling Given: Not Answered Alcohol Use Standard Drinks/Week Comments Yes 6 (1 standard drink = 0.6 oz pure alcoho l) Alcohol Habits Answer Date Recorded How often do you have a drink containing 4 or more times a w chipewwa 02/05/2022 alcohol? How many drinks containing alcohol [...] or relatives? How often do you attend zoroastrianism or More than 4 times per year 04/15/2021 methodist services? Do you belong to any clubs or Yes 02/05/2022 organizations such as zoroastrianism groups, unions, fraternal or athletic groups, or [...] place to sleep or slept in a detention (including now)? Education Answer Date Recorded What is the highest level of school Master's degree (e.g., M Polo, MS, 03/28/2019 you have completed or the highest Doreen, MEd, AUTOMOTIVE AIRCONDITIONING MECH[employer]IC, EMELYN) degree you have received? Sex Assigned at Date Recorded Male 03/27/2018 8:35 PM CDT Last Filed Vital Signs Vital Sign Reading Time Taken Comments Blood Pressure 157/88 06/29/2022 9:38 AM CDT Pulse 76 06/29/2022 8:55 AM CDT Temperature 26.7 ??C (80 ??F) 06/29/2022 9:38 AM CDT Respiratory Rate 20 04/28/2022 8:45 AM CDT Oxygen Saturation 99% 04/30/2022 8:51 AM CDT Inhaled Oxygen Concentration - - Weight 81.5 kg (179 lb 10.8 oz) 04/30/2022 8:51 AM CDT Height 181.7 cm (5' 11.54) 04/28/2022 8:45 AM CDT Body Mass Index 24.69 04/28/2022 8:45 AM CDT Plan of Treatment Upcoming Encounters Date Type Specialty Care Team Description 07/22/2022 Office Visit Urology Alexy Yuan M .D. [address] [place], [place] [phone] (Wo rk) 07/22/2022 Appointment Radiation Oncology Sun Hope M.D., Ph.D. [address] [place], [place] [phone] (Meir rk) Health Maintenance Due Date Last Done Comments Hepatitis C Screening 1945 Visit: Chronic Disease, age 18+ 04/16/2021 04/16/2020 Fasting Glucose for Diabetes 04/10/2022 04/10/2021, 020, Screening 07/06/2019, Additional history exists Zoster Vaccines (3 of 3) 06/23/2022 04/28/2022, 10/05/2009, 09/13/2008 Creatinine Level 04/30/2023 04/30/2022, 04/10/2021, 05/29/2020, Additional history exists Office Visit for Blood Pressure 04/30/2023 04/30/2022 Check / Re-check Potassium Level 04/30/2023 04/30/2022, 04/10/2021, 05/29/2020, Additional history exists Sodium Level 04/30/2023 04/30/2022, 04/10/2021, 05/29/2020, Additional history exists DTaP,Tdap,and Td Vaccines (2 - Td 03/19/2026 03/19/2016, , or Tdap) 04/13/2006 Colonoscopy Discontinued 05/24/2008, 10/24/2007 Hepatitis B Vaccines Completed 06/19/2013, 06/19/2013, 06/13/2012, Additional history exists Pneumococcal vaccine (65+ years) Completed 04/16/2020, 03/2016 Cologuard Discontinued 05/15/2020 Colorectal Cancer Screening Discontinued Depression Screening (Annual Completed 04/28/2022 PHQ-2) COVID-19 Vaccine Completed 05/20/2022, 12/16/2021, 07/07/2021, Additional history exists Fall Risk Screen (Annual) Completed 06/18/2022 Influenza Vaccine Completed 06/22/2022, 06/18/2021, 06/14/2020, Additional history exists CT Colonography Discontinued FIT Discontinued Medical Devices Implanted Type Area Real Estate Job Titles Device Shelf Model / Identifier Expiration Serial / Date Lot Synergy 3.5 X 16 - Bello [id number] Cardiac [place] View Implanted: Qty: 1 on 07/14/2017 Stent Scientific Description: Device Real Estate Job Titles - [employer]ines. Device Status Text - [id number]. Ocular Lens Ocular Lens Eye Procedures Procedure Name Priority Date/Time Associated Diagnosis Comme nts UROLOGY IMAGE Routine 06/29/2022 9:10 Results for EXAM AM CDT this procedure are in the results section. [place] MRI IMAGE Routine 06/29/2022 9:00 Elevated Results for FUSION AM CDT Prostate-Specific this proce dure Antigen are in the results section. [place] BIOPSY Routine 06/29/2022 9:00 Elevated Results for PROSTATE AM CDT Prostate-Specific this proce dure NEEDLE/PUNCH Antigen are in the results section. SURGICAL Routine 06/29/2022 8:30 Elevated Results for PATHOLOGY AM CDT Prostate-Specific this proce dure Antigen are in the results section. MR PROSTATE RAD - Routine 06/18/2022 5:59 Elevated Results for WITHOUT AND WITH (most inpatients PM CDT Prostate-Specific th is procedure IV CONTRAST and all Antigen are in the outpatients) results section. BACTERIAL Routine 06/17/2022 2:11 Elevated Results for CULTURE, AEROBIC PM CDT Prostate-Specific this p rocedure + SUSC, URINE Antigen are in the results section. PROSTATE-SPECIFIC Routine 05/28/2022 9:32 Elevated Results for AG (PSA) AM CDT Prostate-Specific this proce dure DIAGNOSTIC, S Antigen are in the results section. ECG Routine 04/30/2022 Atherosclerotic Heart Result s for 10:02 AM CDT Disease Of Kaw this proce dure Coronary Artery are in the Without Angina results Pectoris section. Coronary Stent Status Post Preoperative Examination Cardiovascular SODIUM, S/P Routine 04/30/2022 9:58 Hypertension Results for AM CDT Essential Primary this proce dure are in the results section. POTASSIUM, S/P Routine 04/30/2022 9:58 Hypertension Results fo r AM CDT Essential Primary this proce dure are in the results section. CREATININE WITH Routine 04/30/2022 9:58 Hypertension Results f or EGFR, S/P AM CDT Essential Primary this proce dure are in the results section. CBC WITHOUT Routine 04/30/2022 9:58 Atherosclerotic Heart Res ults for DIFFERENTIAL, B AM CDT Disease Of Kaw this pr ocedure Coronary Artery are in the Without Angina results Pectoris section. Coronary Stent Status Post Preoperative Examination Cardiovascular from Last 3 Months Results Non-Radiology Image-Urology Image Exam (06/29/2022 9:10 [...] Code Phon e Number IIMS IIMS NA [place] BIOPSY PROSTATE NEEDLE/PUNCH, [place] MRI IMAGE FUSION (06/29/2022 9:00 AM CDT) Specimen (Source) Anatomical Location Collection Method / Collectio n Time Received Time / Laterality Volume Narrative Concepción Yao APRN, C.NMarina, Ayan.N.P. - 06/29/2022 9:00 AM CDT Concepción Yao APRN, C.N.Sukhjinder, Ayan.N.P. ? 06/29/2022 ??9:57 AM URO Prostate transperineal biopsy Performed by: Concepción Yao APRN, C .N.P., DemiN.PJulian Authorized by: Alexy Yuan M.D. Care team members present 1. Concepción Yao APRN, C.N.P., Ayan.N. P. 2. Jackeline Montes L.P.NJulian 3. Tasneem Malloy L.P.NJulian IMPRESSION ?? indeterminate prostate lesion PROCEDURE DETAILS [...] Volume 31.1 Alexy Yuan M.D. UROLOGY ORDERABLES Surgical Pathology (06/29/2022 8:30 AM CDT) Component Value Ref Test Analysis Performed Pathologis t Range Method Time At Signature 07/01/2022 DTL 10:38 AM CDT Participated in Hasmukh Jaime 07/01/2022 DTL the MRadhaB.S. 10:38 AM Interpretation -Pathology Fellow CDT Report Ernesto Huffman M.D., Ph.D. 07/01/2022 DTL electronically 10:38 AM signed by CDT I verify that I have examined all relevant slides/materials for the specimen(s) and rendered or confirmed the diagnosis. Gross Description A: ?? Received on a biopsy board filled with form haresh 07/01/2022 DTL labeled with the patient's name, medical record number, and 10:38 AM specific prostate sites are six pink hanna tissue cores. CDT A. Received within the first well is a complete core 1.3 cm in length labeled right posterior medial apex, prostate per biopsy board. B. Received within the second well is a complete core 1.5 cm in length labeled right posterior medial base, prostate per biopsy board. The core is inked green. C. Received within the third well is a complete core 1.4 cm in length labeled right posterior lateral apex, prostate per biopsy board. The core is inked blue. Specimens A, B, & C are submitted in cassette A1. D. Received within the fourth well is a complete core 1.6 cm in length labeled right posterior lateral base, prostate per biopsy board. E. Received within the fifth well is a complete core 1.6 cm in length labeled right anterior horn, prostate per biopsy board. The core is inked green. F. Received within the sixth well is a complete core 1.6 cm in length labeled right anterior apex prostate per biopsy board. The core is inked blue. Specimens D, E, & F are submitted in cassette D1. Grossed by PADDY. G: ?? Received on a biopsy board filled with formalin labeled with the patient's name, medical record number, and specific prostate sites are six pink hanna tissue cores. G. Received within the first well is a fragmented core 1.2 cm in length labeled left posterior medial apex, prostate per biopsy board. H. Received within the second well is a complete core 1.8 cm in length labeled left posterior medial base, prostate per biopsy board. The core is inked green. I. Received within the third well is a complete core 1.2 cm in length labeled left posterior lateral apex, prostate per biopsy board. The core is inked blue. Specimens G, H, & I are submitted in cassette G1. J. Received within the fourth well is a complete core 1.4 cm in length labeled left posterior lateral base, prostate per biopsy board. K. Received within the fifth well is a fragmented core 2.7 cm in length labeled left anterior horn, prostate per biopsy board. The core is inked green. L. Received within the sixth well is a complete core 1.5 cm in length labeled left anterior apex, prostate per biopsy board. The core is inked blue. Specimens J, K, & L are submitted in cassette J1. Grossed by PADDY. M: ?? Received in formalin labeled with the patient's name, medical record number, and prostate, CHARLES-1, right anterior transition zone are four 0.1 cm in average diameter soft tissue cores, measuring 1.5-2.0 cm in length. Specimens are submitted en toto in cassettes M1 and M2, both cassettes containing two cores in each cassette. Grossed by PADDY. Interpretation FINAL DIAGNOSIS 07/01/2022 DTL 10:38 AM A. Prostate, right posterior medial apex, needle core CDT biopsy: ??Benign prostatic tissue. B. Prostate, right posterior medial base, needle core biopsy: ??Benign prostatic tissue. C. Prostate, right posterior lateral apex, needle core biopsy: ??Prostatic adenocarcinoma Type: Acinar [place] score 3+3=6 Percentage of pattern 4: Not applicable Grade Group: 1 Tumor involves 2% of overall specimen (1 of 1 core). D. Prostate, right posterior lateral base, needle core biopsy: ??Benign prostatic tissue. E. Prostate, right anterior horn, needle core biopsy: Prostatic adenocarcinoma Type: Acinar Ruba score 3+4=7 Percentage of pattern 4: <10% Grade Group: 2 Tumor involves 55% of overall specimen (1 of 1 core). F. Prostate, right anterior apex, needle core biopsy: Prostatic adenocarcinoma Type: Acinar Ruba score 3+3=6 Percentage of pattern 4: Not applicable Grade Group: 1 Tumor involves 70% of overall specimen (1 of 1 core). G. Prostate, left posterior medial apex, needle core biopsy: Benign prostatic tissue. H. Prostate, left posterior medial base, needle core biopsy: ??Benign prostatic tissue. I. Prostate, left posterior lateral apex, needle core biopsy: ??Benign prostatic tissue. J. Prostate, left posterior lateral base, needle core biopsy: ??Benign prostatic tissue. K. Prostate, left anterior horn, needle core biopsy: Prostatic adenocarcinoma Type: Acinar Ruba score 3+3=6 Percentage of pattern 4: Not applicable Grade Group: 1 Tumor involves 15% of overall specimen (1 of 1 core). L. Prostate, left anterior apex, needle core biopsy: Benign prostatic tissue. M. Prostate, CHARLES 1 right anterior transition zone, needle core biopsy: Prostatic adenocarcinoma Type: Acinar [place] score: 3+4=7 Percentage of pattern 4: 10% Grade Group: 2 Tumor involves 70% of overall specimen (4 of 4 cores). Most affected core is involved by tumor over 100% of its length. Perineural invasion is identified. Specimen Anatomical Collection Method Collection Time Receive d Time (Source) Location / / Volume Laterality Tissue 06/29/2022 8:30 AM 2 CDT 12:09 PM CDT Narrative This result has an attachment that is no t available. Concepción Yao APRN, C.N.P., D.N.P. LAB SURG PATH OR DERABLES Performing Organization Address City/State/ZIP Code Phon e Number [facility] - [address] [place], [place] [address] [facility] [place] [address] Laboratories-[facility] [address] MR Prostate without and with IV Contrast [...] evaluation. Koffi Garrido M.D. IMG MRI PROCEDURES (ABNORMAL) Bacterial Culture, Aerobic + Susc, Urine (06/17/2022 2:11 PM CDT) Patholo gist Method Time Signature Urine Culture Mixed 06/18/2022 MKTO microbiota (A) 3:36 PM CDT Specimen Anatomical Collection Method Collection Time Receive d Time (Source) Location / / Volume Laterality Urine (Urine, 06/17/2022 2:11 PM 06/17/20 7:30 Midstream) CDT PM CDT Comment: Specimen Source Site: Urine Alexy Yuan M.D. LAB MICROBIOLOGY - GENERAL O RDERABLES Performing Organization Address City/State/ZIP Code Phon e Number [facility]- [address] [place] [id number] [place] [address] [place] [address] System [address] (ABNORMAL) PSA (Prostate-Specific Antigen), Diagnostic (05/28/2022 9:32 AM CDT) P athologist Signature Prostate-Speci 10.3 (H) <=6.5 05/28/2022 [place] fic Ag ng/mL 11:33 AM CDT Comment: ----ADDITIONAL INFORMATION---- The testing method is an electrochemilum inescence assay manufactured by [employer] and performed on the Modular or Tierra system . Values obtained with different assay met hods or kits may be different and cannot be used inte rchangeably. Test results cannot be interpreted as ab solute evidence for the presence or absence of malignant disease. Specimen Anatomical Collection Method Collection Time Receive d Time (Source) Location / / Volume Laterality Blood (Blood, 05/28/2022 9:32 AM 05/28/20 22 Venous) CDT 10:56 AM CDT Alexy Yuan M.D. LAB BLOOD ADD-ON Performing Organization Address City/State/ZIP Code Phon e Number [facility]- [address] [place] [address] [place] [address] System in [place] [address] ECG 12 Lead (04/30/2022 10:02 AM CDT) P athologist Signature Ventricular Rate 62 BPM MUSE ECG/Min [place] Interval 162 ms MUSE QRSD Interval 68 ms MUSE QT Interval 396 ms MUSE QTC Interval 401 ms MUSE P Richardson 8 degrees MUSE R Richardson 37 degrees MUSE T Wave Richardson 35 degrees MUSE Specimen Anatomical Collection Method Collection Time Receive d Time (Source) Location / / Volume Laterality 04/30/2022 10:02 04/30/2022 AM CDT 10:35 AM CDT Impressions MUSE - 04/30/2022 10:35 AM CDT Normal sinus rhythm Normal ECG When compared with ECG of 16-JUN-2019 12 :35, No significant change was found Reviewed by BRAIN Muro Narrative This result has an attachment that is no t available. Procedure Note oDnnie Bassett M.D. - 04/30/2022Formatt ing of this note might be different from the original. IMPRESSION: Normal sinus rhythm Normal ECG When compared with ECG of 16-JUN-2019 12 :35, No significant change was found Reviewed by BRAIN Muro Adalid Silva APRN, C.N.P. ECG ORDERABLES Performing Organization Address City/State/ZIP Code Phon e Number MUSE MUSE NA CBC without Differential (04/30/2022 9:58 AM CDT) P athologist Signature Hemoglobin 15.5 13.2 - 04/30/2022 [place] 16.6 g/dL 10:04 AM CDT Hematocrit 46.3 38.3 - 04/30/2022 [place] 48.6 % 10:04 AM CDT Erythrocytes 5.04 4.35 - 04/30/2022 [place] 5.65 10:04 AM CDT x10(12)/L MCV 91.9 78.2 - 04/30/2022 [place] 97.9 fL 10:04 AM CDT RBC Distrib Width 13.3 11.8 - 04/30/2022 [place] 14.5 % 10:04 AM CDT Platelet Count 223 135 - 317 04/30/2022 [place] x10(9)/L 10:04 AM CDT Leukocytes 8.7 3.4 - 9.6 04/30/2022 [place] x10(9)/L 10:04 AM CDT Specimen Anatomical Collection Method Collection Time Receive d Time (Source) Location / / Volume Laterality Blood (Blood, 04/30/2022 9:58 AM 04/30/20 22 Venous) CDT 10:01 AM CDT Adalid Silva APRN, C.N.P. LAB BLOOD ADD-ON Performing Organization Address City/[facility]/ZIP Code Phon e Number [facility]- [address] [place] [id number] [place] [address] System in [address] Sodium (04/30/2022 9:58 AM CDT) P athologist Signature Sodium, P 141 135 - 145 04/30/2022 [place] mmol/L 10:31 AM CDT Specimen Anatomical Collection Method Collection Time Receive d Time (Source) Location / / Volume Laterality Blood (Blood, 04/30/2022 9:58 AM 04/30/20 22 Venous) CDT 10:00 AM CDT Adalid Silva APRN, C.N.P. LAB BLOOD ADD-ON Performing Organization Address City/State/[facility] Code Phon e Number [facility]- [address] [address] [place] [address] System in [place] [address] [place] [address] Potassium (04/30/2022 9:58 AM CDT) P athologist Signature Potassium, P 4.3 3.6 - 5.2 04/30/2022 [place] mmol/L 10:31 AM CDT Specimen Anatomical Collection Method Collection Time Receive d Time (Source) Location / / Volume Laterality Blood (Blood, 04/30/2022 9:58 AM 04/30/20 22 Venous) CDT 10:00 AM CDT Ezio Hutton APRNN.P. LAB BLOOD ADD-ON Performing Organization Address City/State/ZIP Code Phon e Number [facility]- [address] [address] [place] [address] System in [place] [address] [place] [address] Creatinine with Estimated GFR (04/30/2022 9:58 AM CDT) athologist Signature Creatinine 0.85 0.74 - 04/30/2022 [place] 1.35 mg/dL 10:31 AM CDT eGFR-Black/Afric >90 >=60 04/30/2022 OW[place] an Eritrean mL/min/BSA 10:31 AM CDT Comment: ----ADDITIONAL INFORMATION---- Estimated GFR calculated using the 2009 CKD_EPI creatinine equation. eGFR Non-Black/ 85 >=60 mL/min/BSA 04/30/2022 10:31 AM CDT [place] Comment: ----ADDITIONAL INFORMATION---- Estimated GFR calculated using the 2009 CKD_EPI creatinine equation. Specimen Anatomical Collection Method Collection Time Receive d Time (Source) Location / / Volume Laterality Blood (Blood, 04/30/2022 9:58 AM 04/30/20 22 Venous) CDT 10:00 AM CDT Froilan Hutton APRN.P. LAB BLOOD ADD-ON Performing Organization Address City/State/ZIP Code Phon e Number [facility]- [address] [facility] [place] [address] [place] [address] System in [place] [address] th [facility] from Last 3 Months Insurance Payer Benefit Plan Subscriber ID Effective Phone Address Typ e / Group Dates MEDICARE MEDICARE A [id number] 2010-Pre [address] [place] [address] BLUE CROSS BCBS [place] [id number] 2016-Pres [phone] PO NATHALIE X Cost Share BLUE SHIELD BLUE COST ent [phone] [place] [address] Care Teams Groundskeeper Supervisor Relationship Specialty Start Date End Date Kendy Bahena M.B., Ch.B. PCP - General 02/26/[address] [phone]
--- OUTSIDE RECORDS SUMMARY | 2022-07-07 11:56 | XMS_ITS | Encounter Summary ---
:1945 Author Organization [facility] Address [address] [place] [address] Care Team Providers Name Role Phone Kendy Bahena, Ch.B. Primary Care Provider [phone] Reason for Visit Reason Comments Results MRI prostate Outpatient (Routine) - Closed Specialty Diagnoses / Procedures Referred By Contact Refer red To Contact Urology Koffi Garrido M.D. [facility] Region [address] [place] [address] Referral ID Status Reason Start Date Expiration Date Visits Requ ested Visits Authorized [id number] Closed 06/11/2022 06/10/2025 1 1 Encounter Details Date Type Department Care Team Description 06/22/2022 Office Visit Department of Urology Koffi Garrido Ele vated Prostate- Specific Antigen (Primary Dx); [place] Abnormal Magnetic Resonance Imaging Pros bae [address] [place] [phone] Social History Tobacco Use Types Packs/Day Years Used Date Smoking Tobacco: Never Smokeless Tobacco: Never Tobacco Cessation: Counseling Given: Not Answered Alcohol Use Standard Drinks/Week Comments Yes 6 (1 standard drink = 0.6 oz pure alcoho l) Alcohol Habits Answer Date Recorded How often do you have a drink containing 4 or more times a w [place] 02/05/2022 alcohol? How many drinks containing alcohol [...] or relatives? How often do you attend yazidism or More than 4 times per year 04/15/2021 mosque services? Do you belong to any clubs or Yes 02/05/2022 organizations such as yazidism groups, unions, fraternal or athletic groups, or [...] have completed or the highest Doreen, MEd, VISUAL MERCHANDISING SPECIALIST, EMELYN) degree you have received? Sex Assigned at Date Recorded Male 03/27/2018 8:35 PM CDT documented as of this encounter Progress Notes Koffi Garrido M.D. - 06/22/2022 8:30 AM CDT SUBJECTIVE CHIEF COMPLAINT / REASON FOR VISIT Elevated prostate specific antigen HISTORY OF PRESENT ILLNESS Dane Stephen Sheldon Jr. is a 76 y.o. male [...] arthroplasty. Transrectal prostate ultrasound was performed in [place] on June 02, 2021. Results follow: FINAL DIAGNOSIS A. Prostate, left, needle core biopsy: Atypical small glands suspicious for, but not diagnostic of, malignancy. B. Prostate, right, needle core biopsy: Benign prostatic tissue. He recently had a second MRI and is here to discuss the results. Furthermore, he is already scheduled for a transperineal prostate biopsy in [place], one week from today. The following portions of the patient's history were reviewed and updated as appropriate: allergies,current medications, family history, medical history, social history, surgical history and problem list. OBJECTIVE Prostate MRI was performed on June 18, 2022. Films and report are reviewed. Prostate size estimated to be 30 cc for a prostate specific antigen density of 0.34. In the body of the reported describes a PIRADS 4 lesion, in summary illicit as a PIRADS 5 lesion. There is questionable capsular perforation present. There is also one indeterminate lymph node, left external iliac. ASSESSMENT / PLAN 1. Elevated prostate specific antigen 2. Abnormal MRI of the prostate PLAN: Proceed with transperineal biopsy as already ordered. Patient had several questions. He is asking about surgery versus radiation. He is asking why there was a sudden change in the MRI. He is wondering about going directly to surgery, without having the biopsy. Explained why this is not a good idea. We also discussed that he may be a better candidate for radiation therapy, as opposed to surgery. Koffi Garrido M.D. 06/22/22 9:19 AM CDT documented in this encounter Plan of Treatment Upcoming Encounters Date Type Specialty Care Team Description 07/22/2022 Office Visit Urology Alexy Yuan M .D. [address] [place] [phone] (Wo rk) 07/22/2022 Appointment Radiation Oncology Sun Hope M.D., Ph.D. [address] [place], [place] [phone] (Wo rk) documented as of this encounter Visit Diagnoses Diagnosis Elevated Prostate-Specific Antigen - Kathryn young Abnormal Magnetic Resonance Imaging Pros bae documented in this encounter Care Teams Punch Machine Hand Relationship Specialty Start Date End Date Kendy Bahena M.B., Ch.B. PCP - General 02/26/22 [address] [place] [address] documented as of this encounter
--- OUTSIDE RECORDS SUMMARY | 2022-07-07 11:56 | XMS_ITS | Encounter Summary ---
:1945 Author Organization [facility] Address [address] [place] [address] Care Team Providers Name Role Phone Kendy Bahena, Ch.B. Primary Care Provider Encounter Details Date Type Department Care Team Description 06/21/2022 Orders Only Department of Urology in Kathy Yuan M.D. [place], [place] [address] [facility] [place] [address] [place] [phone] (Wo rk) Social History Tobacco Use Types Packs/Day Years Used Date Smoking Tobacco: Never Smokeless Tobacco: Never Alcohol Use Standard Drinks/Week Comments Yes 6 (1 standard drink = 0.6 oz pure alcoho l) Alcohol Habits Answer Date Recorded How often do you have a drink containing 4 or more times a w [place] 02/05/2022 alcohol? How many drinks containing alcohol [...] or relatives? How often do you attend caodaism or More than 4 times per year 04/15/2021 restoration services? Do you belong to any clubs or Yes 02/05/2022 organizations such as caodaism groups, unions, fraternal or athletic groups, or [...] have completed or the highest Doreen, MEd, RADIO INTERFERENCE EXPERT, EMELYN) degree you have received? Sex Assigned at Date Recorded Male 03/27/2018 8:35 PM CDT documented as of this encounter Plan of Treatment Upcoming Encounters Date Type Specialty Care Team Description 07/22/2022 Office Visit Urology Alexy Yuan M .D. [address] [place], [place] [phone] (Wo rk) 07/22/2022 Appointment Radiation Oncology Sun Hope M.D., Ph.D. [address] [place], [place] [phone] (Wo rk) documented as of this encounter Visit Diagnoses Not on filedocumented in this encounter Care Teams Pbx Manager Relationship Specialty Start Date End Date Kendy Bahena M.B., Ch.B. PCP - General 02/26/22 [address] [place] [phone] documented as of this encounter
--- OUTSIDE RECORDS SUMMARY | 2022-07-07 11:56 | XMS_ITS | Encounter Summary ---
:1945 Author Organization [facility] Address [address] [place] [address] Care Team Providers Name Role Phone Kendy Bahena, Ch.B. Primary Care Provider [phone] Reason for Referral Outpatient (Routine) - Authorized Specialty Diagnoses / Procedures Referred By Contact Refer red To Contact Radiation Oncology Diagnoses Elevated Prostate-Specific Antigen Kanika Real M.D., [facility].Ed. [address] [place] [address] Referral ID Status Reason Start Date Expiration Date Visits V isits Requested Authorized [id number] Authorized 07/04/2022 07/04/2023 1 1 Encounter Details Date Type Department Care Team Description 07/04/2022 Documentation Department of Urology in [facility] 200 [facility] [address] [place] [address] [place], [place] [phone] (Wo rk) Social History Tobacco Use Types Packs/Day Years Used Date Smoking Tobacco: Never Smokeless Tobacco: Never Alcohol Use Standard Drinks/Week Comments Yes 6 (1 standard drink = 0.6 oz pure alcoho l) Alcohol Habits Answer Date Recorded How often do you have a drink containing 4 or more times a w [place] 02/05/2022 alcohol? How many drinks containing alcohol [...] More than 4 times per year 04/15/2021 zoroastrianism services? Do you belong to any clubs [...] place to sleep or slept in a longterm (including now)? Education Answer Date Recorded What is the highest level of school Master's degree (e.g., M Polo, MS, 03/28/2019 you have completed or the highest Doreen, MEd, FIELD HANDYMAN, EMELYN) degree you have received? Sex Assigned at Date Recorded Male 03/27/2018 8:35 PM CDT documented as of this encounter Progress Notes Kanika Real M.D., M.Ed. - 07/04/2022 2:37 PM CDT I attempted to contact the patient Mr. Charles Sheldon at his listed cell and home phone numbers today and yesterday which both went to [employer]. I will attempt to reach him again on Wednesday and will send him a patient portal message in the meantime. Placed referral to our colleagues in Radiation Oncologyfor G3+4 prostate cancer. Kanika Real MD, MEd documented in this encounter Plan of Treatment Upcoming Encounters Date Type Specialty Care Team Description 07/22/2022 Office Visit Urology Alexy Yuan M .D. [address] [place], [place] [phone] (Wo rk) 07/22/2022 Appointment Radiation Oncology Sun Hope M.D., Ph.D. [address] [place], [place] [phone] (Wo rk) Scheduled Referrals Name Type Priority Associated Diagnoses Order S chedule Radiation Oncology Outpatient Referral Routine Elevated Ex pected: - consult Prostate-Specific 07/04/2022 (clinic) Antigen (Approximate), Expires: 10/04/2023 documented as of this encounter Visit Diagnoses Diagnosis Elevated Prostate-Specific Antigen - Kathryn young documented in this encounter Care Teams Vp Hr Diversity Relationship Specialty Start Date End Date Kendy Bahena M.B., Ch.B. PCP - General 02/26/22 [address] [place] [phone] documented as of this encounter
--- OUTSIDE RECORDS SUMMARY | 2022-07-07 11:56 | XMS_ITS | Encounter Summary ---
:1945 Author Organization [facility] Address [address] [place] [address] Care Team Providers Name Role Phone Kendy Bahena, Ch.B. Primary Care Provider [phone] Reason for Visit Outpatient (Routine) - Closed Specialty Diagnoses / Procedures Referred By Contact Refer red To Contact Diagnoses Elevated Prostate-Specific Antigen Alexy Yuan M.D. [facility] Procedures URO Prostate transperineal biopsy [address] [place] [address] Referral ID Status Reason Start Date Expiration Date Visits Requ ested Visits Authorized [id number] Closed 06/06/2022 06/06/2023 1 1 Encounter Details Date Type Department Care Team Description 06/29/2022 Procedure visit Department of Alexy Yuan M .D. [address] [place] [phone] Elevated Urology in Concepción Yao APRN, C.N.PJulian, D.N.P. [address] [place] [address] Prostate-Specific [place], [place] Antigen (Primary Dx) [address] [place] [phone] Social History Tobacco Use Types Packs/Day Years Used Date Smoking Tobacco: Never Smokeless Tobacco: Never Alcohol Use Standard Drinks/Week Comments Yes 6 (1 standard drink = 0.6 oz pure alcoho l) Alcohol Habits Answer Date Recorded How often do you have a drink containing 4 or more times a w [place] 02/05/2022 alcohol? How many drinks containing alcohol [...] or relatives? How often do you attend christianity or More than 4 times per year 04/15/2021 congregational services? Do you belong to any clubs or Yes 02/05/2022 organizations such as christianity groups, unions, fraternal or athletic groups, or [...] place to sleep or slept in a nursing home (including now)? Education Answer Date Recorded What is the highest level of school Master's degree (e.g., M Polo, MS, 03/28/2019 you have completed or the highest Doreen, MEd, LOFT WORKER APPRENTICE, EMELYN) degree you have received? Sex Assigned at Date Recorded Male 03/27/2018 8:35 PM CDT documented as of this encounter Last Filed Vital Signs Vital Sign Reading Time Taken Comments Blood Pressure 157/88 06/29/2022 9:38 AM CDT Pulse 76 06/29/2022 8:55 AM CDT Temperature 26.7 ??C (80 ??F) 06/29/2022 9:38 AM CDT Respiratory Rate - - Oxygen Saturation - - Inhaled Oxygen Concentration - - Weight - - Height - - Body Mass Index - - documented in this encounter Progress Notes Jackeline Montes, L.P.N. - 06/29/2022 9:00 AM CDT Patient was seen for transperineal biopsy. Probe used: serial number [id number] ([id number]). documented in this encounter Procedure Notes Concepción Yao APRN, C.NMarina, Ayan.N.P. - 06/29/2022 9:00 AM CDTAssociated Order(s): URO Prostate transperineal biopsy Pre-Procedure Diagnose(s): Elevated Prostate-Specific Antigen Post-Procedure Diagnose(s): Elevated Prostate-Specific Antigen URO Prostate transperineal biopsy Performed by: Concepción Yao APRN, C.N.Sukhjinder, Ayan.N.P. Authorized by: Alexy Yuan M.D. Care team members present 1. Concepción Yao APRN, C.N.P., Ayan.N.P. 2. Jackeline Montes L.P.N. 3. Tasneem Malloy L.P.N. IMPRESSION indeterminate prostate lesion PROCEDURE DETAILS Position: Dorsal lithotomy Biopsy option(s) include: MR Fusion Biopsy type: transperineal Antibiotics at time of procedure: yes Region(s) of interest: CHARLSE #1 CHARLES # 1 - location: right, transitional/central zone, anterior CHARLES # 1 - PiRADS: 5 CHARLES # 1 - number of cores: 4 BIOPSY DETAILS Systemic biopsy completed at time of procedure: yes Right prostate lobe - number of biopsies: 6 Left prostate lobe - number of biopsies: 7 Seminal vesicle biopsy NOT completed at time of procedure: Seminal vesicle biopsy ULTRASOUND DETAILS: URONAV 3D used to localize target, identify at risk structures, and dynamically used to direct therapy to the target. Image(s) acquired and saved. ADDITIONAL DETAILS: Known prostate cancer: no History of prior negative prostate biopsy: yes Is this the first prostate biopsy?: no CONSENT Consent obtained: written UNIVERSAL PROTOCOL All relevant documentation and testing were reviewed and available. All required blood products, implants, devices and or special equipment were made available as applicable. Pre-procedure verificationwas conducted and the correct site was marked if required. A fire risk assessment was done as applicable. The procedural time-out to verify correct patient, correct side/site, and procedure was conducted prior to performing the procedure and confirmed in a procedural pause. PRE PROCEDURE DETAILS Procedure purpose: Diagnostic Indications: Elevated PSA Digital rectal exam findings: Asymmetrical, increasing prominence noted along right lateral apex Appropriate hand hygiene, gown, cap, mask, protective eyewear, sterile gloves, skin preparation, sterile drape, and strict aseptic technique were utilized as applicable for the procedure.: yes Skin preparation: Chlorhexidine SEDATION / ANESTHESIA Anesthesia method: local infiltration POST PROCEDURE DETAILS Procedure completed successfully: yes Complications: None COMMENTS Ultrasound imaging utilized to assist in biopsying target lesion. Images saved. Pain scale (1-10) during local infiltration: 3/10 Pain scale (1-10) during prostate biopsy: 3/10 Prostate measurements: Length (mm) 41.2 Height (mm) 29.5 Width (mm) 49.0 Volume 31.1 documented in this encounter Plan of Treatment Upcoming Encounters Date Type Specialty Care Team Description 07/22/2022 Office Visit Urology Alexy Yuan M .D. [address] [place] [phone] (Wo rk) 07/22/2022 Appointment Radiation Oncology Sun Hope M.D., Ph.D. [address] [place] [phone] (Wo rk) documented as of this encounter Procedures Procedure Name Priority Date/Time Associated Diagnosis Comme nts MO MRI IMAGE FUSION Routine 06/29/2022 9:00 AM Elevated Re sults for this CDT Prostate-Specific procedure are in Antigen the results section. MO BIOPSY PROSTATE Routine 06/29/2022 9:00 AM Elevated Res ults for this NEEDLE/PUNCH CDT Prostate-Specific procedure are in Antigen the results section. SURGICAL PATHOLOGY Routine 06/29/2022 8:30 AM Elevated Res ults for this CDT Prostate-Specific procedure are in Antigen the results section. documented in this encounter Results MO BIOPSY PROSTATE NEEDLE/PUNCH, MO MRI IMAGE FUSION (06/29/2022 9:00 AM CDT) Specimen (Source) Anatomical Location Collection Method / Collectio n Time Received Time / Laterality Volume Narrative Concepción Yao APRN, C.N.Sukhjinder, D.N.P. - 06/29/2022 9:00 AM CDT Concepción Yao APRN, C.NMarina, Ayan.N.P. ? 06/29/2022 ??9:57 AM URO Prostate transperineal biopsy Performed by: Concepción Yao APRN, C .N.PJulian, D.N.P. Authorized by: Alexy Yuan M.D. Care team members present 1. Concepción Yao APRN, C.N.Sukhjinder, Ayan.N. P. 2. Jackeline Montes L.P.NJulian 3. [...] Participated in Hasmukh Jaime 07/01/2022 DTL the [place] 10:38 AM Interpretation -Pathology Fellow CDT Report [...] needle core biopsy: ??Prostatic adenocarcinoma Type: Acinar Neville score 3+3=6 Percentage of pattern 4: Not applicable Grade Group: 1 Tumor involves 2% of overall specimen (1 of 1 core). D. Prostate, right posterior lateral base, needle core biopsy: ??Benign prostatic tissue. E. Prostate, right anterior horn, needle core biopsy: Prostatic adenocarcinoma Type: Acinar Neville score 3+4=7 Percentage of pattern 4: <10% [...] needle core biopsy: Prostatic adenocarcinoma Type: Acinar Neville score 3+3=6 Percentage of pattern 4: Not applicable Grade Group: 1 Tumor involves 15% of overall specimen (1 of 1 core). L. Prostate, left anterior apex, needle core biopsy: Benign prostatic tissue. M. Prostate, CHARLES 1 right anterior transition zone, needle core biopsy: Prostatic adenocarcinoma Type: Acinar Neville score: 3+4=7 Percentage of pattern 4: 10% [...] is no t available. Concepción Yao APRN, CJulianNJulianP., D.N.P. LAB SURG PATH OR DERABLES Performing Organization Address City/State/ZIP Code Phon e Number [facility] - [address] [place], [place] [address] [facility] [address] [facility] [address] documented in this encounter Visit Diagnoses Diagnosis Elevated Prostate-Specific Antigen - Kathryn young documented in this encounter Administered Medications Inactive Administered Medications - up to 3 most recent administrations Medication Order MAR Action Action Date Dose Rate Site lidocaine 10 mg/mL (1 %) injection Given 06/29/2022 9:30 AM CDT 30 mL 30 mL (XYLOCAINE) 30 mL, injection, Once, On 06/29/22 at 0830, For 1 dose documented in this encounter Care Teams Animal Hospital Clerk Relationship Specialty Start Date End Date Kendy Bahena M.B., Ch.B. PCP - General 02/26/[address] [phone] documented as of this encounter
--- OUTSIDE RECORDS SUMMARY | 2022-07-07 11:56 | XMS_ITS | Encounter Summary ---
:1945 Author Organization [facility] Address [address] [place] [address] Care Team Providers Name Role Phone Kendy Bahena, Ch.B. Primary Care Provider Encounter Details Date Type Department Care Team Description 07/06/2022 Clinical Communication Department of Urology Koffi Garrido in [place], [place] M.D. [address] [place] [address] [place], [place] [phone] Social History Tobacco Use Types Packs/Day Years Used Date Smoking Tobacco: Never Smokeless Tobacco: Never Alcohol Use Standard Drinks/Week Comments Yes 6 (1 standard drink = 0.6 oz pure alcoho l) Alcohol Habits Answer Date Recorded How often do you have a drink containing 4 or more times a w [place] 02/05/2022 alcohol? How many drinks containing alcohol [...] More than 4 times per year 04/15/2021 alevism services? Do you belong to any clubs [...] place to sleep or slept in a long term (including now)? Education Answer Date Recorded What is the highest level of school Master's degree (e.g., M A, MS, 03/28/2019 you have completed or the highest Doreen, MEd, PANEL BUILDER, EMELYN) degree you have received? Sex Assigned at Date Recorded Male 03/27/2018 8:35 PM CDT documented as of this encounter Miscellaneous Notes Telephone Encounter - Izzy Ray RNicolle. - 07/06/2022 12:24 PM CDT Ow Salvador RN spoke with patient. Patient has an upcoming appointment in [place] on 07/22/[address] Yuan and per patient, also with Sally. Patient is inquiring if ok to wait more weeks for visit and then get a plan in place.Patient would just like input if ok to wait. Patient was informed to keep [place] appointment as that is the team he would need to discuss options and plans with at this time, verbalized understanding. Patient also mentions he is having a bone scan in [place] tomorrow, 07/07/22, regarding a left hip that is giving him trouble and [facility] is wanting to get images. Patient had a total hip replaced left side about 3 years ago in which the one they may want to revise. Recent right total hip done in April. This is mentioned as FYI to team regarding patient's current other concerns and images. Patient states ok to leave a detailed message if he does not answer. Telephone Encounter - Ramy Perez - 07/06/2022 9:51 AM CDT Reason for Communication: Patient calling in he is hoping he could schedule an appt as soon as possible with either or Lorene Juares to go over her test results from his biopsy that was done on his prostate. Patient stated he is hoping to get in as soon as possible for this. Current Can Nursing/Provider leave a detailed message?: Did the patient refuse triage through Nurse line? (for symptom based concerns): Action Needed: Please call patient back Name of Medication (if relevant): Please send all scheduling replies to scheduling pool. documented in this encounter Plan of Treatment Upcoming Encounters Date Type Specialty Care Team Description 07/22/2022 Office Visit Urology Alexy Yuan M .D. [address] [place], [place] [phone] (Wo rk) 07/22/2022 Appointment Radiation Oncology Sun Hope M.D., Ph.D. [address] [place], [place] [phone] (Wo rk) documented as of this encounter Visit Diagnoses Not on filedocumented in this encounter Care Teams Costume Director Relationship Specialty Start Date End Date Kendy Bahena M.B., Ch.B. PCP - General 02/26/22 [address], [place] [address] documented as of this encounter
--- OUTSIDE RECORDS SUMMARY | 2022-07-07 11:56 | XMS_ITS | Encounter Summary ---
:1945 Author Organization [facility] Address [address] [place] [address] Care Team Providers Name Role Phone Kendy Bahena, Ch.B. Primary Care Provider [phone] Encounter Details Date Type Department Care Team Description 06/18/2022 Orders Only Department of Urology in Kathy Yuan M.D. [place], [place] [address] [facility] [address] [place] [phone] [phone] (Wo rk) Social History Tobacco Use Types Packs/Day Years Used Date Smoking Tobacco: Never Smokeless Tobacco: Never Alcohol Use Standard Drinks/Week Comments Yes 6 (1 standard drink = 0.6 oz pure alcoho l) Alcohol Habits Answer Date Recorded How often do you have a drink containing 4 or more times a w [place] 02/05/2022 alcohol? How many drinks containing alcohol [...] or relatives? How often do you attend latter-day or More than 4 times per year 04/15/2021 worship services? Do you belong to any clubs or Yes 02/05/2022 organizations such as latter-day groups, unions, fraternal or athletic groups, or [...] place to sleep or slept in a [place] [facility] [place] (including now)? Education Answer Date Recorded What is the highest level of school Master's degree (e.g., Shakeel Cuellar, , 03/28/2019 you have completed or the highest Doreen, MEd, TRUSS PULLER HELPER, EMELYN) degree you have received? Sex Assigned at Date Recorded Male 03/27/2018 8:35 PM CDT documented as of this encounter Plan of Treatment Upcoming Encounters Date Type Specialty Care Team Description 07/22/2022 Office Visit Urology Alexy Yuan M .D. [address] [place], [place] [phone] (Wo rk) 07/22/2022 Appointment Radiation Oncology Sun Hope M.D., Ph.D. [address] [place], [place] [phone] (Wo rk) documented as of this encounter Visit Diagnoses Not on filedocumented in this encounter Care Teams Network Control Operators Supervisor Relationship Specialty Start Date End Date Kendy Bahena M.B., Ch.B. PCP - General 02/26/22 [address] [place] [address] documented as of this encounter
--- OUTSIDE RECORDS SUMMARY | 2022-07-07 11:57 | XMS_ITS | Encounter Summary ---
:1945 Author Organization [facility] Address [address] [place] [address] Care Team Providers Name Role Phone Kendy Bahena, Ch.B. Primary Care Provider [phone] Encounter Details Date Type Department Care Team Description 02/27/2022 Clinical Communication Department of Deonte Escobedo, [facility] in [address] [place] [phone] Social History Tobacco Use Types Packs/Day Years Used Date Smoking Tobacco: Never Smokeless Tobacco: Never Alcohol Use Standard Drinks/Week Comments Yes 6 (1 standard drink = 0.6 oz pure alcoho l) Alcohol Habits Answer Date Recorded How often do you have a drink containing 4 or more times a w [place] 02/05/2022 alcohol? How many drinks containing alcohol [...] or relatives? How often do you attend uatsdin or More than 4 times per year 04/15/2021 evangelical services? Do you belong to any clubs or Yes 02/05/2022 organizations such as uatsdin groups, unions, fraternal or athletic groups, or school groups? How often do you attend meetings of the More than 4 times r year 02/05/2022 clubs or organizations you [...] have completed or the highest Doreen, MEd, EXTRACT PULLER, EMELYN) degree you have received? Sex Assigned at Date Recorded Male 03/27/2018 8:35 PM CDT documented as of this encounter Miscellaneous Notes Telephone Encounter - Opal Ruiz - 03/02/2022 8:39 AM CDT Patient called in and stated he would rather have someone call him and go over MRI results. He does not want to do video. Please call him at [phone]. Can he be called at the 10:00 spot? Please advise. Thank you, Opal Telephone Encounter - Lise Barros - 02/27/2022 9:54 AM CDT Patient would like to discuss his MRI results with before his injection on 03/03. He would like to have call him caryl. Patient is not available after 11:30 today but will be available Wednesday. Thank you, Lise documented in this encounter Plan of Treatment Upcoming Encounters Date Type Specialty Care Team Description 07/22/2022 Office Visit Urology Alexy Yuan M .D. [address] [place] [phone] (Wo rk) 07/22/2022 Appointment Radiation Oncology Sun Hope M.D., Ph.D. [address] [place], [place] [phone] (Wo rk) documented as of this encounter Visit Diagnoses Not on filedocumented in this encounter Care Teams Health Care Assistant Relationship Specialty Start Date End Date Kendy Bahena M.B., Ch.B. PCP - General 02/26/22 [address], [place] [address] documented as of this encounter
--- OUTSIDE RECORDS SUMMARY | 2022-07-07 11:57 | XMS_ITS | Encounter Summary ---
:1945 Author Organization [facility] Address [address] [place] [address] Care Team Providers Name Role Phone Kris Robles M.D., M.B.A. Primary Care Provider [phone] Encounter Details Date Type Department Care Team Description 11/13/2021 Documentation Department of Urology in Kathy Yuan M.D. [place], [place] [address] [facility] [address] [place] [phone] (Wo rk) Social History Tobacco Use Types Packs/Day Years Used Date Smoking Tobacco: Never Smokeless Tobacco: Never Alcohol Use Standard Drinks/Week Comments Yes 6 (1 standard drink = 0.6 oz pure alcoho l) Alcohol Habits Answer Date Recorded How often do you have a drink containing 4 or more times a w [place] 02/05/2022 alcohol? How many drinks containing alcohol [...] or relatives? How often do you attend judaism or More than 4 times per year 04/15/2021 temple services? Do you belong to any clubs or Yes 02/05/2022 organizations such as judaism groups, unions, fraternal or athletic groups, or [...] have completed or the highest Doreen, MEd, URBAN ANTHROPOLOGIST, EMELYN) degree you have received? Sex Assigned at Date Recorded Male 03/27/2018 8:35 PM CDT documented as of this encounter Progress Notes Alexy Yuan M.D. - 11/13/2021 1:25 PM CST Hi Mr. Sheldon The PSA has decreased. As we discussed during our meeting, I am comfortable with continuing just monitor the PSA as opposedto proceeding with a repeat biopsy given that your MRI was negative for any suspicious lesions. I would recommend we recheck the PSA again in 6 months. I have placed a mail-in PSA order for this.You will receive a kit can have the blood drawn, and then sent back to us. Alternatively, you may have your PSA done with your local provider. Take care and let me know if you have any questions Sincerely, Alexy Yuan NAILING MACHINE OPERATOR documented in this encounter Plan of Treatment Upcoming Encounters Date Type Specialty Care Team Description 07/22/2022 Office Visit Urology Alexy Yuan M .D. [address] [place] [phone] (Wo rk) 07/22/2022 Appointment Radiation Oncology Sun Hope M.D., Ph.D. [address] [place] [phone] (Wo rk) documented as of this encounter Visit Diagnoses Diagnosis Elevated Prostate-Specific Antigen - [facility] documented in this encounter Care Teams Broodmare Foreman Relationship Specialty Start Date End Date Kris Robles M.D., M.B.A. PCP - General Internal Medicine 01/15/21 02/25/22 [address] [place] [address] documented as of this encounter
--- OUTSIDE RECORDS SUMMARY | 2022-07-07 11:57 | XMS_ITS | Encounter Summary ---
:1945 Author Organization [facility] Address [address] [place] [address] Care Team Providers Name Role Phone Kendy Bhaena, Ch.B. Primary Care Provider [phone] Reason for Referral MRI/CAT/PET Scan (Routine) - Closed Specialty Diagnoses / Procedures Referred By Contact Refer red To Contact Radiology Diagnoses Pain Hip Left Estefani Richey D.O. [facility] Procedures MR Hip Left without IV Contrast [address] [place] [address] Referral ID Status Reason Start Date Expiration Date Visits Requ ested Visits Authorized [id number] Closed 02/05/2022 02/05/2023 1 1 Reason for Visit MRI/CAT/PET Scan (Routine) - Closed Specialty Diagnoses / Procedures Referred By Contact Refer red To Contact Radiology Diagnoses Pain Hip Left Estefani Richey D.O. [facility] Procedures MR Hip Left without IV Contrast [address] [place] [address] Referral ID Status Reason Start Date Expiration Date Visits Requ ested Visits Authorized [id number] Closed 02/05/2022 02/05/2023 1 1 Encounter Details Date Type Department Care Team Description 02/26/2022 Hospital Encounter Department of Estefani Richey P ain Hip Left Radiology in [facility], [address], [place] [address] [address] [place], [place] [phone] (Wo rk) [phone] [phone] Social History Tobacco Use Types Packs/Day Years Used Date Smoking Tobacco: Never Smokeless Tobacco: Never Alcohol Use Standard Drinks/Week Comments Yes 6 (1 standard drink = 0.6 oz pure alcoho l) Alcohol Habits Answer Date Recorded How often do you have a drink containing 4 or more times a w [place] 02/05/2022 alcohol? How many drinks containing alcohol [...] More than 4 times per year 04/15/2021 tenriism services? Do you belong to any clubs [...] have completed or the highest Doreen, MEd, ACCT EXEC, EMELYN) degree you have received? Sex Assigned at Date Recorded Male 03/27/2018 8:35 PM CDT documented as of this encounter Medications at Time of Discharge Medication Sig Dispensed Refills Start Date End Date acetaminophen (TYLENOL) Take 100 mg by mouth 0 500 mg tablet 3 (three) times a day. aspirin 81 mg chewable Chew 1 tablet daily. 0 03/2013 tablet metoprolol succinate TAKE ONE TABLET BY 90 tablet 3 021 (TOPROL-XL) 25 mg 24 hr MOUTH EVERY DAY tabletIndications: Coronary Artery Disease Without Angina Pectoris, Hypertension Essential Primary nitroglycerin Place 1 tablet (0.4 25 tablet 11 03/29/2019 (NITROSTAT) 0.4 mg SL mg total) under the tabletIndications: tongue as needed for Coronary Artery Disease chest pain. Place 1 Without Angina Pectoris tab under the tongue at first sign of chest pain. If no relief in 5 min, call 911. Repeat dose every 5 min up to 2 additional doses if chest pain continues. 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 documented as of this encounter Plan of Treatment Upcoming Encounters Date Type Specialty Care Team Description 07/22/2022 Office Visit Urology Alexy Yuan M .D. [address] [place], [place] [phone] (Meir cronin) 07/22/2022 Appointment Radiation Oncology Sun Hope M.D., Ph.D. [address] [place], [place] [phone] (Meir cronin) documented as of this encounter Procedures Procedure Name Priority Date/Time Associated Comments Diagnosis MR HIP LEFT RAD - Routine 02/26/2022 1:32 Pain Hip Left Results fo r this WITHOUT IV (most inpatients PM CDT procedure a re in CONTRAST and all the results outpatients) section. documented in this encounter Results MR Hip Left without IV Contrast (02/26/2022 1:32 PM CDT) Anatomical Region Laterality Modality Lower Extremity, Hip, Musculoskeletal RST LOS, Left Magnetic Resonance Musculoskeletal ARZ LOS, Muskuloskeletal FLA LOS Specimen (Source) Anatomical Collection Method Collection Time Re ceived Time Location / / Volume Laterality 02/26/2022 1:47 PM CDT Impressions 02/26/2022 1:57 PM CDT Postoperative changes left total hip arthroplasty. Susceptibly artifact from the metallic prostheses causes marked image distortion and limits evaluation of the adjacent bones and soft tissues. This is despite optimizati on of artifact reduction techniques. Involuntary patient motion artifact also conspires against i mage quality. There is significant fluid signal about the hip, centered at the posterior aspect of the greater trochanter (series 6 image 23, series 8 image 15, series 5 image 26). There is extensi ve T2 hyperintensity throughout the gluteus minimus and medius muscles. The gluteus minimus tend on is not well visualized suggesting high-grade tear. Similarly, the membranous portion of the gluteus medius tendon is markedly attenuated and indistinct compatible with high-grade tear. There i s trace fatty infiltration of the gluteus minimus and medius muscles. There is a small intramuscular lipoma within the anterior aspect of the gluteus medius muscle (series 3 image 11). No periprost hetic stress response or fracture. Severe degenerative arthritis of the right hip. Narrative 02/26/2022 1:57 PM CDT EXAM: ??3 LEEANN MR HIP LEFT WITHOUT IV CONTRAST COMPARISON: ??Radiographs from and 02/05/2022 Procedure Note Adalid Darling M.D. - 02/26/2022Format ting of this note might be different from the original. EXAM: 3 LEEANN MR HIP LEFT WITHOUT IV CON TRAST COMPARISON: Radiographs from 04/19/2020 and 02/05/2022 IMPRESSION: Postoperative changes left total hip art hroplasty. Susceptibly artifact from the metallic prostheses causes marked image distortion and limits evaluation of the adjacent bones and soft tissues. This is despite optimizati on of artifact reduction techniques. Involuntary patient motion artifact also conspires against i mage quality. There is significant fluid signal about the hip, centered at the posterior aspect of the greater trochanter (series 6 image 23, series 8 image 15, series 5 image 26). There is extensi ve T2 hyperintensity throughout the gluteus minimus and medius muscles. The gluteus minimus tend on is not well visualized suggesting high-grade tear. Similarly, the membranous portion of the gluteus medius tendon is markedly attenuated and indistinct compatible with high-grade tear. There i s trace fatty infiltration of the gluteus minimus and medius muscles. There is a small intramuscular lipoma within the anterior aspect of the gluteus medius muscle (series 3 image 11). No periprost hetic stress response or fracture. Severe degenerative arthritis of the right hip. Estefani SHEFFIELD MRI PROCEDURES documented in this encounter Visit Diagnoses Diagnosis Pain Hip Left documented in this encounter Care Teams Assistant Sales Manager Relationship Specialty Start Date End Date Kendy Bahena M.B., Ch.B. PCP - General 02/26/[address] [phone] documented as of this encounter
--- OUTSIDE RECORDS SUMMARY | 2022-07-07 11:57 | XMS_ITS | Encounter Summary ---
:1945 Author Organization [facility] Address [address] [place] [address] Care Team Providers Name Role Phone Kris Robles M.D., M.B.A. Primary Care Provider [phone] Reason for Referral Outpatient (Routine) - Authorized Specialty Diagnoses / Procedures Referred By Contact Refer red To Contact Neurology Diagnoses Pain Hip Left Pain Total Hip Arthroplasty Initial (HCC) Pain Low Back Unspecified Naty Mena P.A.-C. [address] [place] [address] Referral ID Status Reason Start Expiration Visits Visits Date Date Requested Authorized [id number] Authorized Patient 07/14/2021 07/14/2022 1 1 Preference Encounter Details Date Type Department Care Team Description 07/14/2021 Orders Only Department of Naty Mena Pain Hip Left (Primary Dx); Orthopedic Surgery in [place] Chowdhury Pain Total Hip Arthroplasty Initial (HCC ); [place], [place] [address] Pain Low Back Unspecified [address] [place] [phone] Social History Tobacco Use Types Packs/Day Years Used Date Smoking Tobacco: Never Smokeless Tobacco: Never Alcohol Use Standard Drinks/Week Comments Yes 6 (1 standard drink = 0.6 oz pure alcoho l) Alcohol Habits Answer Date Recorded How often do you have a drink containing 4 or more times a w [place] 02/05/2022 alcohol? How many drinks containing alcohol [...] have completed or the highest Doreen, MEd, PATIENT CARE DIRECTOR, EMELYN) degree you have received? Sex Assigned at Date Recorded Male 03/27/2018 8:35 PM CDT documented as of this encounter Plan of Treatment Upcoming Encounters Date Type Specialty Care Team Description 07/22/2022 Office Visit Urology Alexy Yuan M .D. [address] [place], [place] [phone] (Wo rk) 07/22/2022 Appointment Radiation Oncology Sun Hope M.D., Ph.D. [address] [place], [place] [phone] (Wo rk) documented as of this encounter Visit Diagnoses Diagnosis Pain Hip Left - Primary Pain Total Hip Arthroplasty Initial (HCC ) Pain Low Back Unspecified documented in this encounter Care Teams Gis Programmer Relationship Specialty Start Date End Date Kris Robles M.D., M.B.A. PCP - General Internal Medicine 01/15/21 02/25/22 [address], [place] [address] documented as of this encounter
--- OUTSIDE RECORDS SUMMARY | 2022-07-07 11:57 | XMS_ITS | Encounter Summary ---
:1945 Author Organization [facility] Address [address] [place] [address] Care Team Providers Name Role Phone Kendy Bahena, Ch.B. Primary Care Provider [phone] Encounter Details Date Type Department Care Team Description 04/30/2022 Hospital Encounter Department of Adalid Silva lerotic [facility] [place] Coronary Artery Without Angina Pectoris; Laboratory Medicine C, MORGUE TECHNICIAN, Coronary Stent Status Post; in [place], C.N.P. Preoperative Examination Cardiovascular; [place] [address]ential [address] [place] [phone] Social History Tobacco Use Types Packs/Day Years Used Date Smoking Tobacco: Never Smokeless Tobacco: Never Alcohol Use Standard Drinks/Week Comments Yes 6 (1 standard drink = 0.6 oz pure alcoho l) Alcohol Habits Answer Date Recorded How often do you have a drink containing 4 or more times a w [place] 02/05/2022 alcohol? How many drinks containing [...] or relatives? How often do you attend evangelical or More than 4 times per year 04/15/2021 advent services? Do you belong to any clubs or Yes 02/05/2022 organizations such as evangelical groups, unions, fraternal or athletic groups, or [...] place to sleep or slept in a custodial (including now)? Education Answer Date Recorded What is the highest level of school Master's degree (e.g., M [employer], MS, 03/28/2019 you have completed or the highest Doreen, MEd, SCORING MACHINE OPERATOR, EMELYN) degree you have received? Sex [...] 2 additional doses if chest pain continues. documented as of this encounter Plan of Treatment Upcoming Encounters Date Type Specialty Care Team Description 07/22/2022 Office Visit Urology Alexy Yuan M .D. [address] [place], [place] [phone] (Wo rk) 07/22/2022 Appointment Radiation Oncology Sun Hope M.D., Ph.D. [address] [place], [place] [phone] (Wo rk) documented as of this encounter Procedures Procedure Name Priority Date/Time Associated Diagnosis Comme nts CBC WITHOUT Routine 04/30/2022 9:58 Atherosclerotic Heart Res ults for this DIFFERENTIAL, B AM CDT [facility] [place] procedu re are in Coronary Artery Without the results Angina Pectoris section. Coronary Stent Status Post Preoperative Examination Cardiovascular SODIUM, S/P Routine 04/30/2022 9:58 Hypertension Essential Re sults for this AM CDT Primary procedure are i n the results section. POTASSIUM, S/P Routine 04/30/2022 9:58 Hypertension Essential Results for this AM CDT Primary procedure are i n the results section. CREATININE WITH Routine 04/30/2022 9:58 Hypertension Essential Results for this EGFR, S/P AM CDT Primary procedure are i n the results section. documented in this encounter Results Sodium (04/30/2022 9:58 AM CDT) P athologist Signature Sodium, P 141 135 - 145 04/30/2022 [place] mmol/L 10:31 AM CDT Specimen Anatomical Collection Method Collection Time Receive d Time (Source) Location / / Volume Laterality Blood (Blood, 04/30/2022 9:58 AM 04/30/20 22 Venous) CDT 10:00 AM CDT Ezio Hutton APRNNJulianP. LAB BLOOD ADD-ON Performing Organization Address City/State/ZIP Code Phon e Number [facility] [address] [place] [address] [place] [address] System in [place] [facility] Potassium (04/30/2022 9:58 AM CDT) athologist Signature Potassium, P 4.3 3.6 - 5.2 04/30/2022 [place] mmol/L 10:31 AM CDT Specimen Anatomical Collection Method Collection Time Receive d Time (Source) Location / / Volume Laterality Blood (Blood, 04/30/2022 9:58 AM 04/30/20 22 Venous) CDT 10:00 AM CDT Adalid Silva APRN, Annabelle.N.P. LAB BLOOD ADD-ON Performing Organization Address City/State/ZIP Code Phon e Number [facility] [address] [place] [address] [place] [address] System in [place] [address] [place] [address] Creatinine with Estimated GFR (04/30/2022 9:58 AM CDT) athologist Signature Creatinine 0.85 0.74 - 04/30/2022 [place] 1.35 mg/dL 10:31 AM CDT eGFR-Black/Afric >90 >=60 04/30/2022 [place] an Serbian mL/min/BSA 10:31 AM CDT Comment: ----ADDITIONAL INFORMATION---- [...] CDT 10:00 AM CDT Adalid Silva APRN, Annabelle.N.P. LAB BLOOD ADD-ON Performing Organization Address City/State/ZIP Code Phon e Number [facility]- [address] [place] [address] [place] [address] [address] CBC without Differential (04/30/2022 9:58 AM CDT) [...] Venous) CDT 10:01 AM CDT Adalid Silva APRN C.N.P. LAB BLOOD ADD-ON Performing Organization Address City/State/ZIP Code Phon e Number [facility] [address] [place] [address] [facility] [place] [address] System in [place] [address] [place] [address] documented in this encounter Visit Diagnoses Diagnosis Atherosclerotic Heart Disease [facility] [place] Coronary Artery Without Angina Pectoris Coronary Stent Status Post Preoperative Examination Cardiovascular Hypertension Essential Primary documented in this encounter Care Teams Epic Director Relationship Specialty Start Date End Date Kendy Bahena M.B., Ch.B. PCP - General 02/26/[address] [place] [phone] documented as of this encounter
--- OUTSIDE RECORDS SUMMARY | 2022-07-07 11:57 | XMS_ITS | Encounter Summary ---
:1945 [address] Organization [facility] Address [address] [place] [address] Care Team Providers Name Role Phone Kendy Bahena, Ch.B. Primary Care Provider [phone] Reason for Visit Reason Comments Phone Contact Encounter Details Date Type Department Care Team Description 06/02/2022 Clinical Communication Department of Urology Krystian Yuan, Phone [facility] [place] [address] [place] [phone] Social History Tobacco Use Types Packs/Day Years Used Date Smoking Tobacco: Never Smokeless Tobacco: Never Alcohol Use Standard Drinks/Week Comments Yes 6 (1 standard drink = 0.6 oz pure alcoho l) Alcohol Habits Answer Date Recorded How often do you have a drink containing 4 or more times a w [place] 02/05/2022 alcohol? How many drinks containing alcohol [...] or relatives? How often do you attend buddhist or More than 4 times per year 04/15/2021 holiness services? Do you belong to any clubs or Yes 02/05/2022 organizations such as buddhist groups, unions, fraternal or athletic groups, or [...] completed or the highest Doreen, MEd, DIRECTOR MOTION PICTURE, EMELYN) degree you have received? Sex Assigned at Date Recorded Male 03/27/2018 8:35 PM CDT documented as of this encounter Miscellaneous Notes Telephone Encounter - Alexy Yuan M.D. - 06/06/2022 1:05 PM CDT Tried to call him again but he didn't order picker/assembler I placed orders for biopsy, urine culture and sent him antibiotics Portal message sent and left voice message. Telephone Encounter - María Vo - 06/05/2022 10:19 AM CDT Patient called again wanting to set up f/u appointments to [facility]. He is wanting to do a biopsy.He said if Dr. Yuan is not available, he is open to see one of his APPs. Patient is hoping to be seen for f/u visit the next 10 days. I did let him know the possibility of that happening might be low. Please place orders, Thank you Telephone Encounter - María Vo - 06/02/2022 10:19 AM CDT Jana, Patient just called wanting to speak to Dr. Yuan regarding what was discussed between him and the patient yesterday via portal. Patient expresses he feels more comfortable speaking to him on the phone regarding his PSA results and how to proceed from there. He would like to be reached at [phone] Thank you documented in this encounter Plan of Treatment Upcoming Encounters Date Type Specialty Care Team Description 07/22/2022 Office Visit Urology Alexy Yuan M .D. [address] [place], [place] [phone] (Wo rk) 07/22/2022 Appointment Radiation Oncology Sun Hope M.D., Ph.D. [address] [place], [place] [phone] (Wo rk) documented as of this encounter Visit Diagnoses Not on filedocumented in this encounter Care Teams Cad Drafter Relationship Specialty Start Date End Date Kendy Bahena M.B., Ch.B. PCP - General 02/26/22 [address], [place] [address] documented as of this encounter
--- OUTSIDE RECORDS SUMMARY | 2022-07-07 11:57 | XMS_ITS | Encounter Summary ---
:1945 Author Organization [facility] Address [address] [place] [address] Care Team Providers Name Role Phone Kendy Bahena, [facility] Primary Care Provider [phone] Reason for Visit Reason Comments Med Refill Encounter Details Date Type Department Care Team Description 04/23/2022 Refill Department of Internal Kendy Bahena M .B., Med Refill Medicine in [facility] [address] [place] [address] [place] [address] [phone] Social History Tobacco Use Types Packs/Day Years Used Date Smoking Tobacco: Never Smokeless Tobacco: Never Alcohol Use Standard Drinks/Week Comments Yes 6 (1 standard drink = 0.6 oz pure alcoho l) Alcohol Habits Answer Date Recorded How often do you have a drink containing 4 or more times a w [place] 02/05/2022 alcohol? How many drinks containing alcohol [...] get together with friends Three times a [place] 02/05/2022 or relatives? How often do you attend druze or More than 4 times per year 04/15/2021 sikh services? Do you belong to any clubs or Yes 02/05/2022 organizations such as druze groups, unions, fraternal or athletic groups, or [...] place to sleep or slept in a jail (including now)? Education Answer Date Recorded What is the highest level of school Master's degree (e.g., M [place], MS, 03/28/2019 you have completed or the highest Doreen, MEd, CNC SERVICE TECHNICIAN, EMELYN) degree you have received? Sex Assigned at Date Recorded Male 03/27/2018 8:35 PM CDT documented as of this encounter Plan of Treatment Upcoming Encounters Date Type Specialty Care Team Description 07/22/2022 Office Visit Urology Alexy Yuan M .D. [address] [place], [place] [phone] (Wo rk) 07/22/2022 Appointment Radiation Oncology Sun Hope M.D., Ph.D. 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 PCP - General 02/26/22 [address] [place] [phone] documented as of this encounter
--- OUTSIDE RECORDS SUMMARY | 2022-07-07 11:57 | XMS_ITS | Encounter Summary ---
:1945 Author Organization [facility] Address [address] [place] [address] Care Team Providers Name Role Phone Kendy Bahena, Ch.B. Primary Care Provider [phone] Encounter Details Date Type Department Care Team Description 03/09/2022 Clinical Communication Department of Deonte Escobedo, [facility] in .[address] [place] [phone] Social History Tobacco Use Types Packs/Day Years Used Date Smoking Tobacco: Never Smokeless Tobacco: Never Alcohol Use Standard Drinks/Week Comments Yes 6 (1 standard drink = 0.6 oz pure alcoho l) Alcohol Habits Answer Date Recorded How often do you have a drink containing 4 or more times a w [place] 02/05/2022 alcohol? How many drinks containing alcohol [...] or relatives? How often do you attend mu-ism or More than 4 times per year 04/15/2021 scientologist services? Do you belong to any clubs or Yes 02/05/2022 organizations such as mu-ism groups, unions, fraternal or athletic groups, or [...] have completed or the highest Doreen, MEd, BELLSTAFF, EMELYN) degree you have received? Sex Assigned at Date Recorded Male 03/27/2018 8:35 PM CDT documented as of this encounter Progress Notes Edinson De Jesus M.D. - 03/09/2022 3:30 PM CDT SUBJECTIVE CHIEF COMPLAINT/REASON FOR VISIT Bilateral hip pain. HISTORY OF PRESENT ILLNESS I met with Mr. Sheldon today via a phone visit. We originally had scheduled this as a video visit, but we had difficulty with connectivity, so we converted to a phone visit. Mr. Sheldon reports that he has been having more discomfort in his right groin over the past several days. This pain has been making it difficult for him to sleep at night as well as pain with standing and walking. He denies any pain radiating necessarily distal to the groin. He can experience some pain in the right gluteal region as well. OBJECTIVE PHYSICAL EXAMINATION None performed today. 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 Sheldon to proceed with an ultrasound-guided left greater trochanteric bursa corticosteroid injection and appointment with Dr. Valle for his pain with respect to his high-grade tear of the both the gluteus minimus and gluteus medius. However, Mr. Sheldon' pain now is more pronounced in the right hip, and that is his most pressing issue at the current time. He does havemarked degenerative changes on his previous x-rays that were performed in the right hip, and it certainly sounds as if his pain is related to a right hip intra-articular etiology. PLAN: We are going to refer Mr. Sheldon to Orthopedic Surgery for their opinion as to whether or not he would be a candidate for a right total hip arthroplasty. I will plan to contact Mr. Sheldon after his consultation with Orthopedic Surgery. He knows that he may contact me prior to that time if he notes any worsening or worrisome symptoms which were detailed today. Mr. Sheldon voiced agreement and understanding with this plan. Edinson De Jesus M.D. CT CT Job ID: [id number] documented in this encounter Plan of Treatment Upcoming Encounters Date Type Specialty Care Team Description 07/22/2022 Office Visit Urology Alexy Yuan M .D. [address] [place], [place] [phone] (Wo rk) 07/22/2022 Appointment Radiation Oncology Sun Hope M.D., Ph.D. [address] [place], [place] [phone] (Wo rk) documented as of this encounter Visit Diagnoses Diagnosis Pain Hip Right - Primary Primary Osteoarthritis Hip Right Pain Hip Left Bursitis Trochanteric Left documented in this encounter Care Teams Curriculum And Assessment Director Relationship Specialty Start Date End Date Kendy Bahena M.B., Ch.B. PCP - General 02/26/22 [address] [place] [phone] documented as of this encounter
--- OUTSIDE RECORDS SUMMARY | 2022-07-07 11:57 | XMS_ITS | Encounter Summary ---
:1945 Author Organization [facility] Address [address] [place] [address] Care Team Providers Name Role Phone Kris Robles M.D., M.B.A. Primary Care Provider [phone] Encounter Details Date Type Department Care Team Description 07/07/2021 Clinical Communication Department [facility] [place] [address] [place] [phone] Social History Tobacco Use Types Packs/Day Years Used Date Smoking Tobacco: Never Smokeless Tobacco: Never Alcohol Use Standard Drinks/Week Comments Yes 6 (1 standard drink = 0.6 oz pure alcoho l) Alcohol Habits Answer Date Recorded How often do you have a drink containing 4 or more times a w [place] 02/05/2022 alcohol? How many drinks containing alcohol [...] together with friends Three times a [place] 02/05/2022 or relatives? How often do you attend islam or More than 4 times per year 04/15/2021 bahai services? Do you belong to any clubs or Yes 02/05/2022 organizations such as islam groups, unions, fraternal or athletic groups, or [...] have completed or the highest Doreen, MEd, WOOD PATTERNMAKER, EMELYN) degree you have received? Sex Assigned at Date Recorded Male 03/27/2018 8:35 PM CDT documented as of this encounter Miscellaneous Notes Telephone Encounter - Adelina Rao R.N. - 07/15/2021 9:08 AM CDT Called patient and informed him the letter and referral provided by Naty Mena P.A.-C. has been faxed to [facility] in [place] and a successful confirmation was received. Patient verbalized understanding this information and has no further questions. Telephone Encounter - Naty Mena P.A.-C. - 07/14/2021 5:21 PM CDT I spoke with him, I have written a referral and letter. Please fax to [facility] in [place]. [phone] Telephone Encounter - Naty Mena P.A.-C. - 07/11/2021 4:53 PM CDT Left a message on his voicemail. Telephone Encounter - Adelina Rao R.N. - 07/11/2021 9:23 AM CDT Noted. Telephone Encounter - Naty Mena P.A.-C. - 07/10/2021 5:04 PM CDT I called a left a message on his voicemail Telephone Encounter - Fabi Stewart - 07/10/2021 2:52 PM CDT Pt called and would like to speak to a ortho nurse. Please call back Telephone Encounter - Adelina Rao R.N. - 07/08/2021 4:30 PM CDT Noted. Telephone Encounter - Naty Mena P.A.-C. - 07/08/2021 4:26 PM CDT Called and left a message for him to call back to discuss. Telephone Encounter - Adelina Rao R.N. - 07/07/2021 9:30 AM CDT Called patient to discuss concerns with left hip pain. Patient saw Naty Mena P.A.-C. on 06/30/21 and received a left trochanteric bursa cortisone injection. Patient states his left lateral hip pain improved for 3-4 days after the injection and he doesn't have as much pain there, but now is complaining more of left groin pain. Patient states he thinks this pain is coming from his lower back. Informed patient the Orthopedic team does not evaluate and treat back concerns. Discussed patient could be seen by his primary care provider or a referral to PM&R could possibly be placed. Patient isplanning to travel to [place] this coming for the winter months. Patient is requesting a tele phone call from Naty to discuss his concerns and possible options. Telephone Encounter - Lidya Vance - 07/07/2021 8:05 AM CDT Reason for Communication: Patient calling in and states that he had a cortisone injection on his left hip on Wednesday06/30/21 with Naty Mena. Patient would like to speak to a nurse regarding nextsteps. Please advise. Current Can Nursing/Provider leave a detailed message?: yes Did the patient refuse triage through Nurse line? (for symptom based concerns): n/a Action Needed: Call back Name of Medication (if relevant): n/a Please send all scheduling replies to scheduling pool. documented in this encounter Plan of Treatment Upcoming Encounters Date Type Specialty Care Team Description 07/22/2022 Office Visit Urology Alexy Yuan M .D. [address] [place], [place] [phone] (Meir cronin) 07/22/2022 Appointment Radiation Oncology Sun Hope M.D., Ph.D. [address] [place], [place] [phone] (Meir cronin) documented as of this encounter Visit Diagnoses Not on filedocumented in this encounter Care Teams Controlled Atmospheric Furnace Brazer Relationship Specialty Start Date End Date Kris Robles M.D., M.B.A. PCP - General Internal Medicine 01/15/21 02/25/[address] [phone] documented as of this encounter
--- OUTSIDE RECORDS SUMMARY | 2022-07-07 11:57 | XMS_ITS | Encounter Summary ---
:1945 Author Organization [facility] Address [address] [place] [address] Care Team Providers Name Role Phone Kendy Bahena, Ch.B. Primary Care Provider [phone] Reason for Referral Outpatient (Routine) - Authorized Specialty Diagnoses / Procedures Referred By Contact Refer red To Contact Cardiovascular Disease Adalid Silva [facility] DAMIAN, C.N.P. 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 [address] [place] [address] Referral ID Status Reason Start Date Expiration Date Visits Requ ested Visits Authorized [id number] Closed 04/30/2022 04/30/2023 1 1 Reason for Visit Reason Comments Follow-up Outpatient (Routine) - Closed Specialty Diagnoses / Procedures Referred By Contact Refer red To Contact Cardiovascular Disease Adalid Silva, [facility] DAMIAN, C.N.P. [address] [place] [address] Referral ID Status Reason Start Date Expiration Date Visits Requ ested Visits Authorized [id number] Closed 06/06/2021 06/06/2022 1 1 Encounter Details Date Type Department Care Team Description 04/30/2022 Office Visit Department of Adalid Silva [facility] [place] Coronary Artery Without Angina Pectoris (Primary Dx); Cardiovascular Diseases C, Grace SALGADO Stent Status Post; in [facility] nahed C.N.P. Hypertension Essential Primary; [address] Hyperlipidemia; [place] [address] Preoperative Examination Cardiovascular; [phone] [place], [place] Primary Osteoar thritis Hip Right [phone] Social History Tobacco Use Types Packs/Day Years Used Date Smoking Tobacco: Never Smokeless Tobacco: Never Tobacco Cessation: Counseling Given: Not Answered Alcohol Use Standard Drinks/Week Comments Yes 6 (1 standard drink = 0.6 oz pure alcoho l) Alcohol Habits Answer Date Recorded How often do you have a drink containing 4 or more times a w [place] 02/05/2022 alcohol? How many drinks containing [...] or relatives? How often do you attend yarsanism or More than 4 times per year 04/15/2021 restorationist services? 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 Sex Assigned at Date Recorded Male 03/27/2018 8:35 PM CDT documented as of this encounter Last Filed Vital Signs Vital Sign Reading Time Taken Comments Blood Pressure 135/75 04/30/2022 8:54 AM CDT Pulse 72 04/30/2022 8:54 AM CDT Temperature - - Respiratory Rate - - Oxygen Saturation 99% 04/30/2022 8:51 AM CDT Inhaled Oxygen Concentration - - Weight 81.5 kg (179 lb 10.8 oz) 04/30/2022 8:51 AM CDT Height - - Body Mass Index 24.69 04/28/2022 8:45 AM CDT documented in this encounter Progress Notes Adalid Silva, DAMIAN, C.N.P. - 04/30/2022 9:00 AM CDT SUBJECTIVE CHIEF COMPLAINT/REASON FOR VISIT Follow-up coronary artery disease, cardiovascular JOSE RAFAEL. HISTORY OF PRESENT ILLNESS Dane Stephen Sheldon Jr. is seen today for annual follow-up. He moved this follow- up visit a month early as he his preparing for an upcoming right hip total arthroplasty. I last saw him on June 06, 2021 and he was also evaluated by Cardiology in September and October of 2021 for routine follow-up. Traditionally he has visited with Cardiology here at [facility] once per year and with Cardiology in [place] once per year about six months apart. He spends a portion of his year in the [facility] area in the other portion in [facility]. He tells me that he has been feeling well from a cardiopulmonary standpoint and reports no new or concerning cardiopulmonary symptoms. He does, however, report significant orthopedic issues. He knew his right hip was deteriorated from an arthritic standpoint but he was not having much discomfort. Traditionally he has had more discomfort after a total hip arthroplasty a few years ago on the left. Morerecently he has had a significant change in symptoms and is now looking at proceeding with total arthroplasty on the right. He reports no concerning symptoms such as chest pains, palpitations, PND, orthopnea, weight gain or new lower extremity edema. He was recently evaluated by primary care for preoperative clearance and was provided that clearance already. His heart history is otherwise as follows: He had developed some chest discomfort with exertion on inclines and he had notified his primary landcare officer back in the fall of 2016 of these symptoms. He was set up for a stress test that came back mildly abnormal. His EF dropped from 57% to 46% at stress. He was referred to Cardiology and was evaluated on July 12, 2017. Because of his exertional chest pain and abnormal stress test he was sent for a coronary angiogram. He was found to have a hemodynamically significant 90% lesion in the mid RCA that was treated with PTCA and stenting. He also had a 60% mid LAD lesion that was treated with PTCA and stenting after an intracoronary pressure of the mid LAD was abnormal. He had other scattered n onobstructive disease including a 30% left main, 30% proximal LAD, 30% 1st diagonal, 30% proximal circ, 60% 1st obtuse marginal, 20% distal RCA, and 50% RPDA lesions. CURRENT MEDICATIONS Current Outpatient Medications: acetaminophen (TYLENOL) 500 mg tablet, Take 100 mg by mouth 3 (three) times a day., Disp: , Rfl: aspirin 81 mg chewable tablet, Chew 1 tablet daily., Disp: , Rfl: atorvastatin (LIPITOR) 80 mg tablet, Take 1 tablet (80 mg total) by mouth daily., Disp: 90 tablet, Rfl: 3 losartan (COZAAR) 50 mg tablet, Take 1 tablet (50 mg total) by mouth daily., Disp: 90 tablet, Rfl: 3 metoprolol succinate (TOPROL-XL) 25 mg 24 hr tablet, TAKE ONE TABLET BY MOUTH EVERY DAY (Patient taking differently: 50 mg.), Disp: 90 tablet, Rfl: 3 nitroglycerin (NITROSTAT) 0.4 mg SL tablet, Place 1 tablet (0.4 mg total) under the tongue as needed for chest pain. Place 1 tab under the tongue at first sign of chest pain. If no relief in 5 min, call 911. Repeat dose every 5 min up to 2 additional doses if chest pain continues., Disp: 25 tablet, Rfl: 11 ALLERGIES No Known Allergies MEDICAL HISTORY Past Medical History: Diagnosis Date Cataract 2016 Coronary Artery Disease (Unspecified) Fracture Forearm Closed Initial bilateral, one by description was an open fracture, but did not require any surgery Herpes Simplex Labialis recurrent Hyperglycemia Hyperlipidemia Hypertension NOS 2016 Neuropathy Peripheral etiology not clear Osteoarthritis Pain Chest Atypical with negative sestamibi 07/02/2014 at [facility] Paresthesia hospitalization for face paresthesia at [facility] in the distant past, no residual SURGICAL HISTORY Past Surgical History: Procedure Laterality Date ARTHROSCOPY KNEE Left 05/13/2006 secondary to mensical injury CATARACT EXTRACTION W/ INTRAOCULAR LENS IMPLANT Left 02/12/2016 CORONARY STENT PLACEMENT 2017 JOINT REPLACEMENT Sep, 2019 TONSILLECTOMY N/A as a child VASECTOMY 1996 OBJECTIVE VITAL SIGNS BP 135/75 (BP Location: Right arm, Patient Position: Sitting, Cuff Size: Large) Pulse 72 Wt 81.5kg SpO2 99% BMI 24.69 kg/m?? PHYSICAL EXAMINATION General: Well-appearing in no acute distress, alert and oriented x 3. Vessels: No JVD or carotid bruits. Heart: Regular rate and rhythm. Normal S1-S2. No murmurs. Lungs: Clear bilaterally. No rales or wheezing. Abdomen: Nondistended. Extremities: No significant pitting edema. DIAGNOSTICS ECG 12 Lead Result Date: 04/30/2022 Normal sinus rhythm Normal ECG When compared with ECG of 16-JUN-2019 12:35, No significant change was found Reviewed by BRAIN Muro Lab Results Component Value Date CREATININE 0.85 04/30/2022 BUN 19 04/10/2021 NA 141 04/30/2022 KSERUM 4.2 07/06/2019 KPLASMA 4.3 04/30/2022 CL 103 04/10/2021 CO2 27 02/05/2016 Lab Results Component Value Date WBC 8.7 04/30/2022 HGB 15.5 04/30/2022 HCT 46.3 04/30/2022 MCV 91.9 04/30/2022 PLT 223 04/30/2022 Outside echocardiogram October 31, 2021 (report scanned in to document viewer) LV size is normal, RV size is normal, left and right atrium are normal. Normal LV wall motion with grade 1 diastolic delayed relaxation. Trace mitral and tricuspid valve regurgitation. 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 He reports no newor concerning symptoms over the last year. He is functionally limited by orthopedic issues but nothing from a cardiopulmonary standpoint. He is on a good medical regimen that includes a low-dose aspirin and high-intensity statin therapy. His ECG today is unchanged. Hopefully he will have a speedy recovery from his arthroplasty procedure and can get back to routine physical activity. His goal should be around 150 minutes of moderate intensity exercise weekly once he is cleared from orthopedics. I reviewed his outside echocardiogram report from October of this year. This does not appear to show any significant change from his last [facility] echocardiogram. #3 Hypertension Essential Primary His blood pressure appears to be reasonably controlled at this point in time. I would like him to continue to assess his blood pressure post surgery once his pain has improved and he should reach out if his blood pressure is consistently greater than 130/80. We will continue with the metoprolol and losartan for now but could consider increasing the losartan in the future if needed. #4 Hyperlipidemia He had a lipid panel done while in [place] six months ago and his LDL was reported to be at goal in the 60s. He should continue with atorvastatin as lifelong therapy unless he develops a side effect orintolerance. #5 Preoperative Examination Cardiovascular #6 Primary Osteoarthritis Hip Right He is asymptomatic and stable from a cardiovascular standpoint. He does not require any additional testing prior to proceeding with surgery. He has been given instructions with regard to what to do about his daily aspirin and I would recommend that the rest of his medications be taken as prescribed per ioperatively. PLAN FOR FOLLOW-UP: Recommend follow-up by Cardiology in one year. documented in this encounter Plan of Treatment Upcoming Encounters Date Type Specialty Care Team Description 07/22/2022 Office Visit Urology Alexy Yuan M .D. [address] [place], [place] [phone] (Wo rk) 07/22/2022 Appointment Radiation Oncology Sun Hope M.D., Ph.D. [address] [place], [place] [phone] (Wo rk) Scheduled Referrals Name Type Priority Associated Order Schedule Diagnoses Cardiovascular Disease Outpatient Referral Routine Expected: office visit (clinic) 2022 General (Approximate), Expires: 07/31/2023 documented as of this encounter Results ECG 12 Lead (04/30/2022 10:02 AM CDT) P athologist Signature Ventricular Rate 62 BPM MUSE ECG/Min NE Interval 162 ms MUSE QRSD Interval 68 ms MUSE QT Interval 396 ms MUSE QTC Interval 401 ms MUSE P Ambler 8 degrees MUSE R [place] 37 degrees MUSE T Wave Ambler 35 degrees MUSE Specimen Anatomical Collection Method [...] that is no t available. Procedure Note Donnie Bassett M.D. - 04/30/2022Formatt ing of this note might be different from the original. IMPRESSION: Normal sinus rhythm Normal ECG When compared with ECG of 16-JUN-2019 12 :35, No significant change was found Reviewed by BRAIN Muro Adalid Silva APRN, C.N.P. ECG ORDERABLES Performing Organization Address City/State/ZIP Code Phon e Number MUSE MUSE NA Sodium (04/30/2022 9:58 AM CDT) P athologist Signature Sodium, P 141 135 - 145 04/30/2022 [place] mmol/L 10:31 AM CDT Specimen Anatomical Collection Method Collection Time Receive d Time (Source) Location / / Volume Laterality Blood (Blood, 04/30/2022 9:58 AM 04/30/20 22 Venous) CDT 10:00 AM CDT Annabelle Huttno APRN.N.P. LAB BLOOD ADD-ON Performing Organization Address City/State/ZIP Code Phon e Number [facility]- [address] [place] [address] [place] [address] System in [place] [address] Potassium (04/30/2022 9:58 AM CDT) athologist Signature Potassium, P 4.3 3.6 - 5.2 04/30/2022 [place] mmol/L 10:31 AM CDT Specimen Anatomical Collection Method Collection Time Receive d Time (Source) Location / / Volume Laterality Blood (Blood, 04/30/2022 9:58 AM 04/30/20 22 Venous) CDT 10:00 AM CDT Adalid Silva APRN, Annabelle.N.P. LAB BLOOD ADD-ON Performing Organization Address City/State/ZIP Code Phon e Number [facility]- [address] [place] [address] [place] [address] System in [place] [address] Creatinine with Estimated GFR (04/30/2022 9:58 AM CDT) athologist Signature Creatinine 0.85 0.74 - 04/30/2022 [place] 1.35 mg/dL 10:31 AM CDT eGFR-Black/Afric >90 >=60 04/30/2022 [place] an [place] mL/min/BSA 10:31 AM CDT Comment: ----ADDITIONAL INFORMATION---- [...] Organization Address City/State/ZIP Code Phon e Number [facility]- [address] [place] [address] [facility] [place] [address] System in [place] [address] CBC without Differential (04/30/2022 9:58 AM CDT) [...] CDT 10:01 AM CDT Adalid Silva APRN, Annabelle.N.P. 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 PCP - General 02/26/222199 [address] [phone] documented as of this encounter
--- OUTSIDE RECORDS SUMMARY | 2022-07-07 11:57 | XMS_ITS | Encounter Summary ---
:1945 Author Organization [facility] Address [address] [place] [address] Care Team Providers Name Role Phone Kendy Bahena, Ch.B. Primary Care Provider [phone] Reason for Visit Reason Comments Pre-op Exam Appointment Request (Routine) - Closed Specialty Diagnoses / Procedures Referred By Contact Refer red To Contact Family Medicine Referral ID Status Reason Start Date Expiration Date Visits Requ ested Visits Authorized [id number] Closed 04/16/2022 04/16/2023 1 1 Encounter Details Date Type Department Care Team Description 04/28/2022 Office Visit Department of Jewel Covarrubias Exam Medicine, July AmandaBJulianSJulian, [facility]Prim[facility] Dx[facility] [address] [facility] [address] [place] [phone] Social History Tobacco Use Types Packs/Day Years Used Date Smoking Tobacco: Never Smokeless Tobacco: Never Tobacco Cessation: Counseling Given: Not Answered Alcohol Use Standard Drinks/Week Comments Yes 6 (1 standard drink = 0.6 oz pure alcoho l) Alcohol Habits Answer Date Recorded How often do you have a drink containing 4 or more times a w three affiliated 02/05/2022 alcohol? How many drinks containing alcohol [...] place to sleep or slept in a [facility] (including now)? Education Answer Date Recorded What is the highest level of school Master's degree (e.g., M [employer], MS, 03/28/2019 you have completed or the highest Doreen, MEd, SLEEVE WHEEL MAKER, EMELYN) degree you have received? Sex Assigned at Date Recorded Male 03/27/2018 8:35 PM CDT documented as of this encounter Last Filed Vital Signs Vital Sign Reading Time Taken Comments Blood Pressure 135/76 04/28/2022 8:45 AM CDT Pulse 67 04/28/2022 8:45 AM CDT Temperature 35.8 ??C (96.5 ??F) 04/28/2022 8:45 AM CDT Respiratory Rate 20 04/28/2022 8:45 AM CDT Oxygen Saturation - - Inhaled Oxygen Concentration - - Weight 83 kg (182 lb 14 oz) 04/28/2022 8:45 AM CDT Height 181.7 cm (5' 11.54) 04/28/2022 8:45 AM CDT Body Mass Index 25.13 04/28/2022 8:45 AM CDT documented in this encounter Patient Instructions Patient InstructionsJewel Kapoor M.B.BJulianS., M.D. - 04/28/2022 9:00 AM CDT Patient should take his regular medications the morning of surgery unless as indicated below: Hold aspirin 4 days prior to surgery. Hold Losartan the day of surgery. documented in this encounter H&P Notes Jewel Kapoor M.B.B.S., M.D. - 04/28/2022 9:00 AM CDT Adult PRE-OP Evaluation: Dane Sheldon Jr., 1945 presents for pre-operative evaluation and assessment as requested by Dr. Richard Hammonds. Proposed procedure: Right Hip Arthroplasty Date of Surgery/ Procedure: 05/11/2022 Hospital/Surgical Facility: [facility] Primary Physician: July Madrigal, Ch.B. Type of Anesthesia Anticipated: General anesthesia History of anesthesia complications: NONE} History of abnormal bleeding: NONE History of blood transfusions: NONE Preoperative Questions YES - Do you have a history of heart attack, stroke, stent, bypass or surgery on an artery in the head, neck, heart or legs? NO - Do you ever have any pain or discomfort in your chest? NO - Do you have a history of Congestive Heart Failure? NO - Are you troubled by shortness of breath when: walking on the level/ up a slight hill/ at night? NO - Does your chest ever sound wheezy or whistling? NO - Do you currently have a cold, bronchitis or other respiratory infection? NO - Have you had a cold, bronchitis or other respiratory infection within the last 2 weeks? NO - Do you usually have a cough? NO - Do you sometimes get pains in the calves of your legs when you walk? NO - Do you or anyone in your family have previous history of blood clots? NO - Do you or does anyone in your family have a serious bleeding problem such as prolonged bleedingfollowing surgeries or cuts? NO - Have you ever had problems with anemia or been told to take iron pills? NO - Have you had any abnormal blood loss such as black, tarry or bloody stools, or abnormal vaginalbleeding? NO - Have you ever had a blood transfusion? NO - Have you or any of your relatives ever had problems with anesthesia? NO - Do you have sleep apnea, excessive snoring or daytime drowsiness? NO - Do you have any prosthetic heart valves? NO - Do you have prosthetic joints? NO - Is there any chance that you may be ? 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 aspirin 81 mg chewable tablet Chew 1 tablet daily. atorvastatin (LIPITOR) 80 mg tablet Take 1 tablet (80 mg total) by mouth daily. 90 tablet 3 losartan (COZAAR) 50 mg tablet Take 1 tablet (50 mg total) by mouth daily. 90 tablet 3 metoprolol succinate (TOPROL-XL) 25 mg 24 hr tablet TAKE ONE TABLET BY MOUTH EVERY DAY (Patient taking differently: 50 mg.) 90 tablet 3 nitroglycerin (NITROSTAT) 0.[address] 1 tablet (0.4 mg total) under the tongue as neededfor chest pain. Place 1 tab under the tongue at first sign of chest pain. If no relief in 5 min, call 911. Repeat dose every 5 min up to 2 additional doses if chest pain continues. 25 tablet 11 gabapentin (NEURONTIN) 100 mg capsule Take 100 mg by mouth. No current facility-administered medications for this visit. OTC products: None, except as noted above No Known Allergies Latex Allergy:NO Social History Socioeconomic History Marital status: Highest education level: Master's degree (e.g., MA, MS, Doreen, MEd, SLEEVE WHEEL MAKER, EMELYN) Tobacco Use Smoking status: Never Smokeless tobacco: Never Vaping Use Vaping Use: never used Substance and Sexual Activity Alcohol use: Yes Alcohol/week: 6.0 standard drinks Types: 6 Cans of beer per week Drug use: No Sexual activity: Yes Partners: Female control/protection: Vasectomy Social History Narrative He is and they live in [place]. 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 He has a daughter in [place], another daughter in [place] [facility], and a son in [place]. He walks 4-5 miles a day 5days a week. They do winter in [place] and they also spend time with his daughters during the year. Social Determinants of Health Financial Resource Strain: Low Risk Difficulty of Paying Living Expenses: Not hard at all Food Insecurity: No Food Insecurity Worried About Running Out of Food in the Last Year: Never true Ran Out of Food in the Last Year: Never true Transportation Needs: No Transportation Needs Lack of Transportation (Medical): No Lack of Transportation (Non-Medical): No Physical Activity: Unknown Days of Exercise per Week: 4 days Stress: No Stress Concern Present Feeling of Stress : Only a little Social Connections: Unknown Frequency of Social Gatherings with Friends and Family: Three times a week Active Member of Clubs or Organizations: Yes Attends Club or Organization Meetings: More than 4 times per year Marital Status: Intimate Partner Violence: Unknown Fear of Current or Ex-Partner: No Physically Abused: No Housing Stability: High Risk Unable to Pay for Housing in the Last Year: No Number of Places Lived in the Last Year: 3 Unstable Housing in the Last Year: No REVIEW OF SYSTEMS: GENERAL: No weight gain, no weight loss, no fever in past month, no chills, no sweats, no fatigue., HEENT: No blurred vision, no double vision, no eye pain, no sinus problems, no hoarseness, no difficulty swallowing, no mouth sores, no diminished hearing, no ringing in ears, no enlarged glands., PULMONARY: No shortness of breath, no cough, no wheezing, no sputum, no hemoptysis., CARDIAC: No valve problems, no chest pain, no chest pressure, no rapid beating, no irregular beating, no dependent edema, pain in calves or with walking, no difficulty moving arms and legs., GI: No heartburn, no nausea, no vomiting, no stomach trouble, no constipation, no diarrhea, no blood in BMs, no change in BMs., : No burning/pain with urination, no difficulty starting stream, no difficulty emptying bladder, no excessive urination., MUSCULOSKELETAL: No joint pain, no joint swelling, no joint stiffness, no muscle pain, no muscle stiffness, no back pain, no back stiffness., SKIN: No skin rashes, no skin sores, no change in moles., NEURO: No significant headaches, no slurred speech, no seizures, no dizziness, no loss of consciousness, no memory loss. , and PSYCH: No mood change. Sleep is okay. Obstructing sleep apnea screening: Stop Bang Total Score: 4 EXAM: BP 135/76 (BP Location: Left arm, Patient Position: Sitting, Cuff Size: Regular) Pulse 67 Temp (!) 35.8 ??C (Temporal) Resp 20 Ht 181.7 cm Wt 83 kg BMI 25.13 kg/m?? GENERAL: Patient is in no distress. Capable of full communication without difficulty. Patient is polite and cooperative. Appropriately dressed and normal hygiene., HEENT: Normocephalic. EOMI, PERRLA, Canals patent, TMs normal. Oropharynx without lesion of mucosa. Pharyngeal rises symmetrically without exudate., NECK: No nodes, no thyromegaly. No bruit auscultated., HEART: Regular rate and rhythm. No murmurs, gallops or rubs noted., LUNGS: Clear to auscultation bilaterally. No expiratory wheeze. No accessory muscles of respiration noted., ABDOMEN: Nontender to palpation. No hepato-splenomegaly. No mass. Normal bowel sounds in all 4 quadrants., EXTREMITIES: No neurovascular compromise. No cyanosis, clubbing or edema. No abnormal limb length., ENDOCRINE: No purple striae, roberts faces or buffalo hump., NEURO: Grossly intact with no evidence of impairment., and SKIN: No lesion, rash or bruising. DIAGNOSTICS: EKG: Not indicated due to non-vascular and low risk of event. RISK ASSESSMENT: Cardiovascular Risk: -Patient is able to perform ADL's without assistance without chest pain. -The patient does not have chest pain at rest and with exertion . -Patient does not have a history of congestive heart failure. -The patient does not have a history of stroke and does not havea history of valvular disease. Cardiovascular risk analysis - known cardiac disease, hypertension Revised cardiac risk index: 0 point, class 1 and risk of 0.4% of major cardiac event Pulmonary Risk: -In terms of risk factors for pulmonary complication, the patient is older than 60 Perioperative Complications: -The patient does not have a history of bleeding or clotting problems in the past. -The patient has not had complications from surgeries -The patient does not have a family history of any anesthesia or surgical complications. IMPRESSION: Reason for surgery/procedure: Hip pain The proposed surgical procedure is considered INTERMEDIATE(abdominal, most orthopedics and intrathoracic surgery) risk. For above listed surgery and anesthesia: Patient is at MODERATE risk for perioperative/procedure complications. RECOMMENDATIONS: Fasting: Must be NPO for 8 hours preoperatively. Preop Plan: Approval given to proceed with proposed procedure, without further diagnostic evaluation. Medications: Patient should take his regular medications the morning of surgery unless as indicated below: Hold aspirin 4 days prior to surgery. Hold Losartan the day of surgery. Sulaiman Iverson M.D. Please contact our office if there are any further questions or information required about this patient. documented in this encounter Plan of Treatment Upcoming Encounters Date Type Specialty Care Team Description 07/22/2022 Office Visit Urology Alexy Yuan M .D. [address] [place], [place] [phone] (Meir cronin) 07/22/2022 Appointment Radiation Oncology Sun Hope M.D., Ph.D. [address] [place], [place] [phone] (Meir cronin) documented as of this encounter Visit Diagnoses Diagnosis Preoperative Exam - Primary documented in this encounter Care Teams Top Screw Relationship Specialty Start Date End Date Kendy Bahena M.B., Ch.B. PCP - General 02/26/[address] [place] [phone] documented as of this encounter
--- OUTSIDE RECORDS SUMMARY | 2022-07-07 11:57 | XMS_ITS | Encounter Summary ---
:1945 Author Organization [facility] Address [address] [place] [address] Care Team Providers Name Role Phone Kendy Bahena, Ch.B. Primary Care Provider [phone] Encounter Details Date Type Department Care Team Description 05/28/2022 Hospital Encounter Department of Alexy Yuan Elevat ed Laboratory Medicine M.DJulian Prostate-Specific in [place], [address] [place] [address] [address] [place], [place] [phone] (Work) [phone] Social History Tobacco Use Types Packs/Day Years Used Date Smoking Tobacco: Never Smokeless Tobacco: Never Alcohol Use Standard Drinks/Week Comments Yes 6 (1 standard drink = 0.6 oz pure alcoho l) Alcohol Habits Answer Date Recorded How often do you have a drink containing 4 or more times a w [place] 02/05/2022 alcohol? How many drinks containing alcohol [...] More than 4 times per year 04/15/2021 confucianism services? Do you belong to any clubs [...] have completed or the highest Doreen, MEd, SOLID DIE CUTTER, EMELYN) degree you have received? Sex Assigned [...] 2 additional doses if chest pain continues. ibuprofen (ADVIL,MOTRIN) Take 400 mg by 0 022 06/12/2022 400 mg tablet mouth. documented as of this encounter Plan of Treatment Upcoming Encounters Date Type Specialty Care Team Description 07/22/2022 Office Visit Urology Alexy Yuan M .D. [address] [place], [place] [phone] (Wo rk) 07/22/2022 Appointment Radiation Oncology Sun Hope M.D., Ph.D. [address] [place], [place] [phone] (Wo rk) documented as of this encounter Procedures Procedure Name Priority Date/Time Associated Diagnosis Comme nts PROSTATE-SPECIFIC Routine 05/28/2022 9:32 AM Elevated Resu lts for this AG (PSA) CDT Prostate-Specific procedure are in DIAGNOSTIC, S Antigen the results section. documented in this encounter Results (ABNORMAL) PSA (Prostate-Specific Antigen), Diagnostic (05/28/2022 9:32 AM CDT) athologist Signature Prostate-Speci 10.3 (H) <=6.5 05/28/2022 [...] Organization Address City/State/ZIP Code Phon e Number [facility]- [address] [place] [address] [place] [address] System in [place] [address] documented in this encounter Visit Diagnoses Diagnosis Elevated Prostate-Specific Antigen documented in this encounter Care Teams Set Up Inspector Relationship Specialty Start Date End Date Kendy Bahena M.B., Ch.B. PCP - General 02/26/[address] [phone] documented as of this encounter
--- OUTSIDE RECORDS SUMMARY | 2022-07-07 11:57 | XMS_ITS | Encounter Summary ---
:1945 Author Organization [facility] Address [address] [place] [address] Care Team Providers Name Role Phone Kris Robles M.D., M.B.A. Primary Care Provider [phone] Reason for Referral MRI/CAT/PET Scan (Routine) - Closed Specialty Diagnoses / Procedures Referred By Contact Refer red To Contact Radiology Diagnoses Pain Hip Left Estefani Richey D.O. [facility] Procedures MR Hip Left without IV Contrast [address] [place] [address] Referral ID Status Reason Start Date Expiration Date Visits Requ ested Visits Authorized [id number] Closed 02/05/2022 02/05/2023 1 1 Encounter Details Date Type Department Care Team Description 02/05/2022 Comprehensive Visit Department of Edinson De Jesus Pain Hip Left (Primary Dx); Sports Medicine augusta Beckford M.D. Other Bursitis Not Elsewhere Classified Left Hip ; [place] [place] Bursitis Trocha nteric Left [address] [place] [phone] Social History Tobacco Use Types Packs/Day Years Used Date Smoking Tobacco: Never Smokeless Tobacco: Never Alcohol Use Standard Drinks/Week Comments Yes 6 (1 standard drink = 0.6 oz pure alcoho l) Alcohol Habits Answer Date Recorded How often do you have a drink containing 4 or more times a w [place] 02/05/2022 alcohol? How many drinks containing alcohol [...] or relatives? How often do you attend cheondoism or More than 4 times per year 04/15/2021 hindu services? Do you belong to any clubs or Yes 02/05/2022 organizations such as cheondoism groups, unions, fraternal or athletic groups, or [...] have completed or the highest Doreen, MEd, MATERIAL SPECIALIST, EMELYN) degree you have received? Sex Assigned at Date Recorded Male 03/27/2018 8:35 PM CDT documented as of this encounter Progress Notes Edinson De Jesus M.D. - 02/05/2022 3:30 PM CDT SUBJECTIVE CHIEF COMPLAINT/REASON FOR VISIT Left hip pain. HISTORY OF PRESENT ILLNESS I have met with and evaluated the patient. I have reviewed the history, physical examination, impression, report, and plan with Dr. Estefani Richey on February 05, 2022, and I agree with her findings and recommendations. Briefly, Mr. Sheldon is a very pleasant 76-year-old male who has a past medical history significant for left total hip arthroplasty that was performed in [place] in September 2019 via a posterior lateral approach. He developed pain in the left hip that worsened when he drove back to [place] from [place]. He saw Dr. Encarnacion in [place] and I reviewed those notes, as well as follow up with Dr. Ambrocio in [place] and I reviewed his notes as well. Mr. Sheldon currently reports that he has pain located in 2 separate areas of his hip. He describes pain as located in the left anterior hip. He also has pain inthe left lateral hip. This pain typically is worse first thing in the morning when he awakens from sleep. It takes him some time to start to loosen up, but then the pain does improve throughout the morning. He also describes stiffness that can occur in his low back and did have an MRI performed of his lumbar spine on March 06, which we reviewed today. He denies any paresthesias in the lower extremities. Mr. Sheldon has had several appropriate treatments to this point. He has been working very diligentlyin Physical Therapy both with Mary Jo Gonzalez, physical therapist, at [facility], as well as with his physical therapist in [place]. He continues to perform those exercises independently. OBJECTIVE PHYSICAL EXAMINATION General: Pertinent physical examination findings include a very pleasant 76-year-old male in no acute distress. Gait: Nonantalgic. Strength: All major muscle groups of the bilateral upper and lower extremities have normal and symmetric muscle strength, bulk and tone lower extremities except for -2 weakness testing in the left hip abductors. He has pain with resisted hip flexion on the left. There is tenderness to palpation over the left greater trochanteric bursa region. He has tenderness to palpation over the iliopsoas tendon anteriorly on the left. DIAGNOSTICS I reviewed left hip x-rays as well as the Radiology report from earlier today. Significant findings include there is a left total hip arthroplasty with no radiographic findings of loosening. 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 There are degenerative changes of the sacroiliac joint. ASSESSMENT / PLAN #1 Left hip pain #2 History of left total hip arthroplasty performed in September 2019 #3 Low back pain #4 Lumbar spondylosis I had a long discussion today with Mr. Sheldon. I feel that his symptoms are likely multifactorial. Ricky feel that he has a significant component of left greater trochanteric pain syndrome contributing to his current pain. He does have rather marked weakness with testing of his left hip abductors and may have a component of gluteus medius and/or minimus tear. He also continues to describe anterior hippain and some of that pain is similar to what he was experiencing prior to the left total hip arthroplasty. He certainly may have a component of iliopsoas tendinosis/impingement. PLAN: With the length of time these symptoms have persisted, despite very appropriate intervention, we aregoing to proceed with an MRI of the left hip with metal suppression specifically looking to evaluatethe gluteal musculature and gluteus medius and minimus tendons. I will plan to see Mr. Sheldon following the MRI to discuss the results and next steps in his management with him. We may consider the possibility of an ultrasound-guided left greater trochanteric bursacorticosteroid injection for both diagnostic and therapeutic purposes at that time depending on the results of the MRI. In the interim, Mr. Sheldon will continue with his excellent rehabilitation program. Mr. Sheldon knows to be in contact with me prior to that time if he notes any worsening or worrisome symptoms which were detailed today. Mr. Sheldon voiced agreement and understanding with this plan. Edinson De Jesus M.D. CT CT Job ID: [id number]/slc documented in this encounter Consult Notes Estefani Richey D.O. - 02/05/2022 3:30 PM CDT SUBJECTIVE REFERRAL SOURCE Self referral REASON FOR CONSULT Left hip pain HISTORY OF PRESENT ILLNESS Mr. Sheldon is a pleasant 76 y.o. male with a history of a left total hip arthroplasty in September 2019 (completed in [place]) who presents today for evaluation of a 1 year history of left anterior and lateral hip pain. Patient notes his left hip pain began in December 2020 as he was completing a drive back from [place]. He was subsequently evaluated by Dr. Encarnacion in January 2021 and diagnosed with left hip trochanteric bursitis and left hip iliopsoas bursitis. However, given his chronic low back stiffness, [facility] for further evaluation. During his [facility] evaluation, it was noted that his deficits do not point to a specific radicular distribution, however an MRI of the lumbar spine and EMG were ordered for further evaluation. The MRI later revealed multilevelspondylitic changes, most notable at the L4/5 with advanced disc degeneration and small left centralzone disc extrusion resulting in mild bilateral neural foraminal narrowing and mild narrowing of theleft lateral recess. Patient notes that he did not undergo the EMG evaluation at that time. He laterunderwent a palpation guided greater trochanter bursa injection in June 2021 and was also completing physical therapy at that time. He notes he received approximately 1 day of relief after the injection before his pain returned. Patient subsequently returned to [place] in July 2021 and while there, he was re-evaluated by the surgeon that initially did his hip replacement and did not note any concern for hardware failure that time. The patient notes that he also continued to actively engage with physical therapy and did have some improvement in his symptoms until approximately December 2021. Currently, he reports having left anterior and lateral hip pain. He describes it as an aching sensation. Patient does also report having ongoing difficulties with low back stiffness. He notes his hip pain is worse with standing, walking, and changing positions such as going from a sitting to standing position. He does have some improvement with resting, stretching, icing, and using [id number]-[id number] medications. He does report a sensation of left leg weakness. Denies having any bowel or bladder incontinence, saddle anesthesia, numbness/tingling, or mechanical symptoms involve the left hip. Regardingcurrent management, he currently uses acetaminophen or ibuprofen as needed with minimal relief. He does also report a previous trial of oral prednisone approximately 1 year ago which he did have some relief. He is currently working with Mary Jo Gonzalez in [place] for his physical therapy. He does report that he has all to completing his therapy at this time pending further evaluation. RELEVANT PAST MEDICAL HISTORY Hypertension Coronary artery disease Peripheral neuropathy RELEVANT PAST SURGICAL HISTORY Left total hip arthroplasty in September 2019 REVIEW OF SYSTEMS I performed a targeted review of systems based on the patient's chief complaint above as discussed in the HPI. I recommend that the patient follow up with their primary or referring provider to pursue any other symptoms which may be of concern. OBJECTIVE VITAL SIGNS There were no vitals filed for this visit. PHYSICAL EXAMINATION General: Awake, alert, and oriented, no apparent distress, pleasant, and cooperative Musculoskeletal, left hip: No abnormalities noted on inspection. Mild tenderness to palpation noted over the left greater trochanter. Pain noted with resisted hip abduction and hip flexion. Normal strength to the bilateral lower extremities with the exception of left hip abduction which was -0.5. Painwith CONCETTA and Fader, localizing to the anterior groin. Negative logroll and [place]inchfield. Musculoskeletal, lumbar spine: No abnormalities noted on inspection. No focal areas of tenderness topalpation. Stiffness noted with rotation, but otherwise pain-free range of motion. Negative straightleg raise and slump test. Neurologic: Brisk patellar reflexes bilaterally but symmetric. Unable to elicit bilateral Achilles reflexes. No clonus present. Negative Lorraine's. Equivocal plantar flexor response. Cardiovascular: Well perfused throughout Pulmonary: Normal work of breathing DIAGNOSTICS IMAGING STUDIES: DX Hip And Pelvis Left 2-3 Views Result Date: 02/05/2022 Impression: Left ANALIA. No radiographic findings of loosening. Heterotopic ossification about the leftgreater trochanter. Degenerative arthritis, right hip. Degenerative changes of the sacroiliac joints. I personally reviewed these images and agree with the radiology report and shared the findings with the patient. ASSESSMENT / PLAN #1 Left hip pain #2 History of left total hip arthroplasty in September 2019 Mr. Dane Sheldon is a pleasant 76-year-old gentleman with a prior history of a left total hip arthroplasty in September 2019 presents today for evaluation of a 1 year history of left anterior and lateral hip pain. Today we discussed that our differential for his lateral hip pain include includes a left gluteal tendinopathy and left gluteal tendon tear. Regarding his anterior hip pain, we discussed that her differential also includes iliopectineal bursitis. PLAN: The following was discussed with the patient: 1) Will place order for an MRI of the left hip for further evaluation 2) Additionally, will place an order for an ultrasound-guided greater trochanter bursa injection forboth diagnostic and therapeutic purposes. Will also review the results of the MRI during this visit and discuss the next steps in management. Patient was in agreement with our assessment and plan. He was advised to contact the clinic for any additional questions or concerns. Estefani Richey DO Physical Medicine and Rehabilitation, PGY-3 Patient seen, assessment and plan discussed with advanced manufacturing consultant, Dr. De Jesus documented in this encounter Plan of Treatment Upcoming Encounters Date Type Specialty Care Team Description 07/22/2022 Office Visit Urology Alexy Yuan M .D. [address] [place], [place] [phone] (Wo rk) 07/22/2022 Appointment Radiation Oncology Sun Hope M.D., Ph.D. [address] [place], [place] [phone] (Wo rk) documented as of this encounter Results MR Hip Left without [...] LEFT WITHOUT IV CONTRAST COMPARISON: ??Radiographs from 0 and 02/05/2022 Procedure Note Adalid Darling M.D. [...] Diagnoses Diagnosis Pain Hip Left - Primary Other Bursitis Not Elsewhere Classified Left Hip Bursitis Trochanteric Left Pain Hip Left documented in this encounter Care Teams Bass Singer Relationship Specialty Start Date End Date Kris Robles M.D., M.B.A. PCP - General Internal Medicine 01/15/21 02/25/[address] [address] documented as of this encounter
--- OUTSIDE RECORDS SUMMARY | 2022-07-07 11:57 | XMS_ITS | Encounter Summary ---
:1945 Author Organization [facility] Address [address] [place] [address] Care Team Providers Name Role Phone Kris Robles M.D., M.B.A. Primary Care Provider Encounter Details Date Type Department Care Team Description 01/19/2022 Clinical Communication Department of Internal Sandoval Davalos , Medicine in Kris Butts M.D.[place], [place] M.B.A. [address] [place] [address] [place], [place] [phone] Social History Tobacco Use Types Packs/Day Years Used Date Smoking Tobacco: Never Smokeless Tobacco: Never Alcohol Use Standard Drinks/Week Comments Yes 6 (1 standard drink = 0.6 oz pure alcoho l) Alcohol Habits Answer Date Recorded How often do you have a drink containing 4 or more times a w [place] 02/05/2022 alcohol? How many drinks containing alcohol [...] have completed or the highest Doreen, MEd, TEST ENGINE MECHANIC, EMELYN) degree you have received? Sex Assigned at Date Recorded Male 03/27/2018 8:35 PM CDT documented as of this encounter Miscellaneous Notes Telephone Encounter - Desiree Olvera - 01/19/2022 9:58 AM CDT Reason for Communication: Patient is asking for a scheduling refferal to be seen by Dr. Edinson De Jesus at [facility] in [facility]. Please send the referral for his hip and back painso he can schedule with him. Patient is also wondering if you would put in an order for patient to have a lab for the enzyme thatprevents muscles from healing it comes from taking high dosages of statins - Please call patient back at Current Can Nursing/Provider leave a detailed message?: yes Did the patient refuse triage through Nurse line? (for symptom based concerns): na Action Needed: Please put that in for patient to schedule with Dr. De Jesus Name of Medication (if relevant): na Please send all scheduling replies to scheduling pool. documented in this encounter Plan of Treatment Upcoming Encounters Date Type Specialty Care Team Description 07/22/2022 Office Visit Urology Alexy Yuan M .D. [address] [place], [place] [phone] (Wo rk) 07/22/2022 Appointment Radiation Oncology Sun Hope M.D., Ph.D. [address] [place], [place] [phone] (Wo rk) documented as of this encounter Visit Diagnoses Not on filedocumented in this encounter Care Teams Ironing Pleater Relationship Specialty Start Date End Date Kris Robles M.D., M.B.A. PCP - General Internal Medicine 01/15/21 02/25/[address] [phone] documented as of this encounter
--- OUTSIDE RECORDS SUMMARY | 2022-07-07 11:57 | XMS_ITS | Encounter Summary ---
:1945 Author Organization [facility] Address [address] [place] [address] Care Team Providers Name Role Phone Kendy Bahena, Ch.B. Primary Care Provider Reason for Referral Outpatient (Routine) - Closed Specialty Diagnoses / Procedures Referred By Contact Refer red To Contact Diagnoses Atherosclerotic Heart Disease Of [place] Coronary Artery Without Angina Pectoris Coronary Stent Status Post Preoperative Examination Cardiovascular Adalid Silva APRN, [facility] [place] [facility] Procedures ECG 12 Lead C.N[address]P. [address] [place] [phone] Referral ID Status Reason Start Date Expiration Date Visits Requ ested Visits Authorized [id number] Closed 04/30/2022 04/30/2023 1 1 Reason for Visit Outpatient (Routine) - Closed Specialty Diagnoses / Procedures Referred By Contact Refer red To Contact Diagnoses Atherosclerotic Heart Disease Of [place] Coronary Artery Without Angina Pectoris Coronary Stent Status Post Preoperative Examination Cardiovascular Adalid Silva APRN, [facility] [place] [facility] Procedures ECG 12 Lead C.N.P. [address] [place] [phone] Referral ID Status Reason Start Date Expiration Date Visits Requ ested Visits Authorized [id number] Closed 04/30/2022 04/30/2023 1 1 Encounter Details Date Type Department Care Team Description 04/30/2022 Hospital Encounter Department of Adalid Silva Atherosc lerotic Heart Disease Of [place] Coronary Artery Without Angina Pectoris; Laboratory Medicine Annabelle, DAMIAN, Coronary Stent Status Post; in Prateek Butts Preoperative Examination Cardiovascular [place] [address] [facility] [place] [phone] Social History Tobacco Use Types Packs/Day Years Used Date Smoking Tobacco: Never Smokeless Tobacco: Never Alcohol Use Standard Drinks/Week Comments Yes 6 (1 standard drink = 0.6 oz pure alcoho l) Alcohol Habits Answer Date Recorded How often do you have a drink containing 4 or more times a w [place] 02/05/2022 alcohol? How many drinks containing alcohol [...] or relatives? How often do you attend temple or More than 4 times per year 04/15/2021 zoroastrian services? Do you belong to any clubs or Yes 02/05/2022 organizations such as temple groups, unions, fraternal or athletic groups, or [...] place to sleep or slept in a fpc (including now)? Education Answer Date Recorded What is the highest level of school Master's degree (e.g., Shakeel Cuellar, [place], 03/28/2019 you have completed or the highest Doreen, MEd, PAPER TESTING SUPERVISOR, EMELYN) degree you have received? Sex [...] Visit Urology Alexy Yuan M .D. [address] [place], [place] [phone] (Meir cronin) 07/22/2022 Appointment Radiation Oncology Sun Hope M.D., Ph.D. [address] [place], [place] [phone] (Meir cronin) documented as of this encounter Procedures Procedure Name Priority Date/Time Associated Diagnosis Comme nts ECG Routine 04/30/2022 10:02 AM Atherosclerotic Heart Results for this CDT Disease Of [place] procedure are in Coronary Artery Without the results Angina Pectoris section. Coronary Stent Status Post Preoperative Examination Cardiovascular documented in this encounter Results ECG 12 Lead (04/30/2022 10:02 AM CDT) P athologist Signature Ventricular Rate 62 BPM MUSE ECG/Min AK Interval 162 ms MUSE QRSD Interval 68 ms MUSE QT Interval 396 ms MUSE QTC Interval 401 ms MUSE P Salol 8 degrees MUSE R Salol 37 degrees MUSE T Wave Salol 35 degrees MUSE Specimen Anatomical Collection Method [...] Code Phon e Number MUSE MUSE NA documented in this encounter Visit Diagnoses Diagnosis Atherosclerotic Heart Disease Of [place] Coronary Artery Without Angina Pectoris Coronary Stent Status Post Preoperative Examination Cardiovascular documented in this encounter Care Teams Trailer Steerer Relationship Specialty Start Date End Date Kendy Bahena M.B., Ch.B. PCP - General [address] [place] [address] documented as of this encounter
--- OUTSIDE RECORDS SUMMARY | 2022-07-07 11:57 | XMS_ITS | Encounter Summary ---
:1945 Author Organization [facility] Address [address] [place] [address] Care Team Providers Name Role Phone Kris Robles M.D., M.B.A. Primary Care Provider [phone] Reason for Referral Outpatient (Routine) - Closed Specialty Diagnoses / Procedures Referred By Contact Refer red To Contact Diagnoses Pain Hip Left Edinson De Jesus M.D. [facility] Procedures DX Hip And Pelvis Left 2-3 Views [address], [address] [place], [place] [address] Referral ID Status Reason Start Date Expiration Date Visits Requ ested Visits Authorized [id number] Closed 01/21/2022 01/21/2023 1 1 Reason for Visit Outpatient (Routine) - Closed Specialty Diagnoses / Procedures Referred By Contact Refer red To Contact Diagnoses Pain Hip Left Edinson De Jesus M.D. [facility] Procedures DX Hip And Pelvis Left 2-3 Views [address], [address] [place], [place] [address] Referral ID Status Reason Start Date Expiration Date Visits Requ ested Visits Authorized [id number] Closed 01/21/2022 01/21/2023 1 1 Encounter Details Date Type Department Care Team Description 02/05/2022 Hospital Encounter Department of Edinson De Jesus Pai n Hip Left Radiology in [place]. [place] [address], [address] [place] [phone] (Wo rk) Social History Tobacco Use Types Packs/Day Years Used Date Smoking Tobacco: Never Smokeless Tobacco: Never Alcohol Use Standard Drinks/Week Comments Yes 6 (1 standard drink = 0.6 oz pure alcoho l) Alcohol Habits Answer Date Recorded How often do you have a drink containing 4 or more times a w [place] 02/05/2022 alcohol? How many drinks containing alcohol [...] or relatives? How often do you attend orthodoxy or More than 4 times per year 04/15/2021 hindu services? Do you belong to any clubs or Yes 02/05/2022 organizations such as orthodoxy groups, unions, fraternal or athletic groups, or [...] place to sleep or slept in a usp (including now)? Education Answer Date Recorded What is the highest level of school Master's degree (e.g., Shakeel Cuellar, MS, 03/28/2019 you have completed or the highest Doreen, MEd, SNUFF DRIER, EMELYN) degree you have received? Sex Assigned [...] Urology Alexy Yuan M .D. [address] [place], [place] [phone] (Meir cronin) 07/22/2022 Appointment Radiation Oncology Sun Hope M.D., Ph.D. [address] [place], [place] [phone] (Meir cronin) documented as of this encounter Procedures Procedure Name Priority Date/Time Associated Comments Diagnosis DX HIP AND PELVIS RAD - Routine 02/05/2022 2:47 Pain Hip Left Resul ts for this LEFT 2-3 VIEWS (most inpatients PM CDT procedure are in and all the results outpatients) section. documented in this encounter Results DX Hip And Pelvis Left 2-3 Views (02/05/2022 2:47 PM CDT) Anatomical Region Laterality Modality Lower Extremity, Pelvis, Hip, Musculoskeletal RST LOS, Left Digital Radiography Musculoskeletal ARZ LOS, Muskuloskeletal FLA LOS Specimen (Source) Anatomical Collection Method Collection Time Re ceived Time Location / / Volume Laterality 02/05/2022 2:49 PM CDT Impressions 02/05/2022 2:50 PM CDT Left ANALIA. No radiographic findings of loosening. Heterotopic ossification about the left greater trochanter. Degenerative ar thritis, right hip. Degenerative changes of the sacroiliac joints. Narrative 02/05/2022 2:50 PM CDT EXAM: ??DX HIP AND PELVIS LEFT 2-3 VIEWS Procedure Note Del Lisa M.D. - 02/05/2022Forma tting of this note might be different from the original. EXAM: DX HIP AND PELVIS LEFT 2-3 VIEWS IMPRESSION: Left ANALIA. No radiographic findings of lo osening. Heterotopic ossification about the left greater trochanter. Degenerative ar thritis, right hip. Degenerative changes of the sacroiliac joints. Edinson De Jesus M.D. [facility] ILDA JACKSON documented in this encounter Visit Diagnoses Diagnosis Pain Hip Left documented in this encounter Care Teams Acid Recovery Operator Relationship Specialty Start Date End Date Kris Robles M.D., M.B.A. PCP - General Internal Medicine 01/15/21 02/25/[address] [phone] documented as of this encounter
--- OUTSIDE RECORDS SUMMARY | 2022-07-07 11:57 | XMS_ITS | Encounter Summary ---
:1945 Author Organization [facility] Address [address] [place] [address] Care Team Providers Name Role Phone Kris Robles M.D., M.B.A. Primary Care Provider [phone] Encounter Details Date Type Department Care Team Description 10/22/2021 Hospital Encounter Department of Alexy Yuan Elevat ed Laboratory Medicine Michael Prostate-Specific and Pathology, [address] [place] [address] in [place], [place] [address] [address] [phone] [place], [place] (Work) [phone] Social History Tobacco Use Types Packs/Day Years [...] or relatives? How often do you attend anabaptism or More than 4 times per year 04/15/2021 advent services? Do you belong to any clubs or Yes 02/05/2022 organizations such as anabaptism groups, unions, fraternal or athletic groups, or [...] have completed or the highest Doreen, MEd, EMBEDDER, EMELYN) degree you have received? Sex Assigned [...] TAKE ONE TABLET BY 90 tablet 3 08/2 04/23/2022 tablet MOUTH EVERY DAY tamsulosin (FLOMAX) 0.4 Take 1 capsule (0.4 30 capsule 11 04/28/2022 mg 24 hr capsule mg total) by mouth daily. documented as of this encounter Plan of Treatment Upcoming Encounters Date Type Specialty Care Team Description 07/22/2022 Office Visit Urology Alexy Yuan M .D. [address] [place], [place] [phone] (Meir cronin) 07/22/2022 Appointment Radiation Oncology Sun Hope M.D., Ph.D. [address] [place], [place] [phone] (Meir rk) documented as of this encounter Procedures Procedure Name Priority Date/Time Associated Diagnosis Comme nts PROSTATE-SPECIFIC Routine 11/10/2021 8:11 AM Elevated Resu lts for this AG (PSA) NCQA SPECIALIST Prostate-Specific procedure are in DIAGNOSTIC, S Antigen the results section. documented in this encounter Results (ABNORMAL) PSA (Prostate-Specific Antigen), Diagnostic (11/10/2021 8:11 AM NCQA SPECIALIST) P athologist Signature Prostate-Speci 6.6 (H) <=6.5 11/11/2021 DTL fic Ag ng/mL 3:46 PM NCQA SPECIALIST Comment: ----ADDITIONAL INFORMATION---- The testing method is [...] Location / / Volume Laterality Blood (Blood, 11/10/2021 8:11 AM 11/12/19 1:47 Venous) NCQA SPECIALIST PM NCQA SPECIALIST Alexy Yuan M.D. LAB BLOOD ADD-ON Performing Organization Address City/State/ZIP Code Phon e Number [facility] - [address] [place] [address] 05 [place] [address] Laboratories-[facility] [address] documented in this encounter Visit Diagnoses Diagnosis Elevated Prostate-Specific Antigen documented in this encounter Care Teams Cd Technician Relationship Specialty Start Date End Date Kris Robles M.D., M.B.A. PCP - General Internal Medicine 01/15/21 02/25/[address] [phone] documented as of this encounter
--- OUTSIDE RECORDS SUMMARY | 2022-07-07 11:57 | XMS_ITS | Encounter Summary ---
:1945 Author Organization [facility] Address [address] [place] [address] Care Team Providers Name Role Phone Kendy Bahena, Ch.B. Primary Care Provider [phone] Encounter Details Date Type Department Care Team Description 05/29/2022 Clinical Communication [facility] [address] [facility] [address] [place] [phone] Social History Tobacco Use Types Packs/Day Years Used Date Smoking Tobacco: Never Smokeless Tobacco: Never Alcohol Use Standard Drinks/Week Comments Yes 6 (1 standard drink = 0.6 oz pure alcoho l) Alcohol Habits Answer Date Recorded How often do you have a drink containing 4 or more times a w [place] in [place] 02/05/2022 alcohol? How many drinks containing alcohol [...] or relatives? How often do you attend orthodox or More than 4 times per year 04/15/2021 baptist services? Do you belong to any clubs or Yes 02/05/2022 organizations such as orthodox groups, unions, fraternal or athletic groups, or [...] have completed or the highest Doreen, MEd, VACUUM CASTER, EMELYN) degree you have received? Sex Assigned at Date Recorded Male 03/27/2018 8:35 PM CDT documented as of this encounter Miscellaneous Notes Telephone Encounter - Alexy Yuan M.D. - 05/31/2022 4:22 PM CDT Portal message sent re: PSA Telephone Encounter - Leanne Levi - 05/29/2022 9:55 AM CDT PSA Please review patient PSA blood test results & contact him to discuss. Thank you. documented in this encounter Plan of Treatment Upcoming Encounters Date Type Specialty Care Team Description 07/22/2022 Office Visit Urology Alexy Yuan M .D. [address] [place], [place] [phone] (Meir cronin) 07/22/2022 Appointment Radiation Oncology Sun Hope M.D., Ph.D. [address] [place], [place] [phone] (Meir cronin) documented as of this encounter Visit Diagnoses Not on filedocumented in this encounter Care Teams Technical Stenographer Relationship Specialty Start Date End Date Kendy Bahena M.B., Ch.B. PCP - General 02/26/222199 [address] [phone] documented as of this encounter
--- OUTSIDE RECORDS SUMMARY | 2022-07-07 11:57 | XMS_ITS | Encounter Summary ---
:1945 Author Organization [facility] Address [address] [place] [address] Care Team Providers Name Role Phone Kris Robles M.D., M.B.A. Primary Care Provider [phone] Encounter Details Date Type Department Care Team Description 07/10/2021 Clinical Communication Department of [facility]y Mena [facility] [place], [place] [address] [place] [phone] Social History Tobacco Use Types Packs/Day Years Used Date Smoking Tobacco: Never Smokeless Tobacco: Never Alcohol Use Standard Drinks/Week Comments Yes 6 (1 standard drink = 0.6 oz pure alcoho l) Alcohol Habits Answer Date Recorded How often do you have a drink containing 4 or more times a w hoh 02/05/2022 alcohol? How many drinks containing alcohol [...] or relatives? How often do you attend lutheran or More than 4 times per year 04/15/2021 uatsdin services? Do you belong to any clubs or Yes 02/05/2022 organizations such as lutheran groups, unions, fraternal or athletic groups, or [...] place to sleep or slept in a halfway (including now)? Education Answer Date Recorded What is the highest level of school Master's degree (e.g., M Polo, MS, 03/28/2019 you have completed or the highest Doreen, MEd, REAL TIME ANALYST, EMELYN) degree you have received? Sex Assigned at Date Recorded Male 03/27/2018 8:35 PM CDT documented as of this encounter Plan of Treatment Upcoming Encounters Date Type Specialty Care Team Description 07/22/2022 Office Visit Urology Alexy Yuan M .D. [address] [place], [place] [phone] (Wo mehrdad) 07/22/2022 Appointment Radiation Oncology Sun Hope M.D., Ph.D. [address] [place], [place] [phone] (Wo rk) documented as of this encounter Visit Diagnoses Not on filedocumented in this encounter Care Teams Wrist Closer Relationship Specialty Start Date End Date Kris Robles M.D., M.B.A. PCP - General Internal Medicine 01/15/21 02/25/22 [address] [place] [phone] documented as of this encounter
--- OUTSIDE RECORDS SUMMARY | 2022-07-07 11:57 | XMS_ITS | Encounter Summary ---
:1945 Author Organization [facility] Address [address] [place] [address] Care Team Providers Name Role Phone Kris Robles M.D., M.B.A. Primary Care Provider [phone] Encounter Details Date Type Department Care Team Description 07/08/2021 Orders Only [facility] Sa neil Lui M.D. [address] [place], [place] [phone] (Wo rk) Social History Tobacco Use Types Packs/Day Years Used Date Smoking Tobacco: Never Smokeless Tobacco: Never Alcohol Use Standard Drinks/Week Comments Yes 6 (1 standard drink = 0.6 oz pure alcoho l) Alcohol Habits Answer Date Recorded How often do you have a drink containing 4 or more times a w [place] 02/05/2022 alcohol? How many drinks containing alcohol [...] or relatives? How often do you attend spiritism or More than 4 times per year 04/15/2021 church services? Do you belong to any clubs or Yes 02/05/2022 organizations such as spiritism groups, unions, fraternal or athletic groups, or [...] you have completed or the highest Doreen, Adam, SALT WASHER, EMELYN) degree you have received? Sex Assigned at Date Recorded Male 03/27/2018 8:35 PM CDT documented as of this encounter Plan of Treatment Upcoming Encounters Date Type Specialty Care Team Description 07/22/2022 Office Visit Urology Alexy Yuan M .D. [address] [place], [place] [phone] (Wo rk) 07/22/2022 Appointment Radiation Oncology Sun Hope M.D., Ph.D. [address] [place], [place] [phone] (Wo rk) documented as of this encounter Visit Diagnoses Not on filedocumented in this encounter Care Teams Open Die Inspector Relationship Specialty Start Date End Date Kris Robles M.D., M.B.A. PCP - General Internal Medicine 01/15/21 02/25/22 [address] [place] [phone] documented as of this encounter
--- OUTSIDE RECORDS SUMMARY | 2022-07-07 11:57 | XMS_ITS | Encounter Summary ---
:1945 Author Organization [facility] Address [address] [place] [address] Care Team Providers Name Role Phone Kendy Bahena, Ch.B. Primary Care Provider [phone] Reason for Visit Appointment Request (Routine) - Closed Specialty Diagnoses / Procedures Referred By Contact Refer red To Contact Sports Medicine Referral ID Status Reason Start Date Expiration Date Visits Requ ested Visits Authorized [id number] Closed 02/27/2022 02/27/2023 1 Encounter Details Date Type Department Care Team Description 03/02/2022 Telemedicine Department of Sports Edinson De Jesus Pa in Hip Left (Primary Dx); Medicine in M.D. Bursitis Trochanteric Left; [place], [address] [place] [address], Primary Os teoarthritis Hip Right [place] [address] [place] [phone] Social History Tobacco Use Types Packs/Day Years Used Date Smoking Tobacco: Never Smokeless Tobacco: Never Alcohol Use Standard Drinks/Week Comments Yes 6 (1 standard drink = 0.6 oz pure alcoho l) Alcohol Habits Answer Date Recorded How often do you have a drink containing 4 or more times a w [place] 02/05/2022 alcohol? How many drinks containing alcohol [...] or relatives? How often do you attend hinduism or More than 4 times per year 04/15/2021 sabianist services? Do you belong to any clubs or Yes 02/05/2022 organizations such as hinduism groups, unions, fraternal or athletic groups, or [...] place to sleep or slept in a senior living (including now)? Education Answer Date Recorded What is the highest level of school Master's degree (e.g., M Polo, MS, 03/28/2019 you have completed or the highest Doreen, MEd, CIVIL STRUCTURAL ENGINEER, EMELYN) degree you have received? Sex Assigned at Date Recorded Male 03/27/2018 8:35 PM CDT documented as of this encounter Progress Notes Edinson De Jesus M.D. - 03/02/2022 10:00 AM CDT SUBJECTIVE CHIEF COMPLAINT/REASON FOR VISIT Follow up left hip pain and low back pain. Subsequent visit conducted via real-time audio/video technology by Dr. Edinson De Jesus at [facility] in [place] to the patient in the patient's home. HISTORY OF PRESENT ILLNESS Mr. Sheldon returns today via video visit. He had an MRI of his left hip performed on February 26. I viewed the images, as well as the radiology report with him in detail. Significant findings include thereare postoperative changes of a left total hip arthroplasty. There is significant fluid signal about the hip, centered at the posterior aspect of the greater trochanter. There is extensive T2 hyperintensity throughout the gluteus minimus to medius muscles. The gluteus minimus tendon is not well visualized, suggesting a high-grade tear. Similarly, the membranous portion of the gluteus medius tendon is markedly attenuated and indistinct, compatible with high-grade tear. There is trace fatty infiltration of the gluteus minimus and medius muscles. There is a small intramuscular lipoma within the anterior aspect of the gluteus medius muscle. There is no periprosthetic stress response or fracture. There is severe degenerative arthritis of the right hip. Mr. Sheldon reports his symptoms have not changed since I saw him just previous to the MRI with respect to his left hip. However, he has noted some pain in the right hip now. He was very active recentlyincluding performing power washing and bending over to weed and so that potentially may have been anexacerbating factor with those symptoms. Otherwise, he denies any change in his symptoms overall. OBJECTIVE PHYSICAL EXAMINATION None performed today. 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 #4 Lumbar spondylosis #5 Right hip DJD I had a long discussion today with Mr. Sheldon and answered multiple appropriate questions that he had. PLAN: With the length of time these symptoms have persisted for Mr. Sheldon, and the findings on his MRI, Oliver going to have him meet with Dr. Valle, orthopedic surgeon, to obtain Dr. Valle's opinion withrespect to the high-grade partial tearing of both the gluteus minimus and medius tendons and Mr. Sheldon' physical examination findings. We had discussed the possibility of a left greater trochanteric bursa corticosteroid injection and Oliver going to tentatively arrange for this to occur at the time that Mr. Sheldon comes to meet with . We can always cancel that appointment depending on his consultation with Dr. Valle. We discussed Mr. Sheldon' exercise regimen in detail. Mr. Sheldon will continue with his non-impact aerobic activity including using the elliptical sap trainer. I will plan on seeing Mr. Sheldon as described above. He knows to be in contact with me prior to thattime if he notes any worsening or worrisome symptoms which we went over in detail today. Mr. Sheldon voiced agreement and understanding with this plan. Edinson De Jesus M.D. CT CT Job ID: [id number] documented in this encounter Plan of Treatment Upcoming Encounters Date Type Specialty Care Team Description 07/22/2022 Office Visit Urology Alexy Yuan M .D. [address] [place], [place] [phone] (Wo rk) 07/22/2022 Appointment Radiation Oncology Sun Hope M.D., Ph.D. [address] [place] [phone] (Wo rk) documented as of this encounter Visit Diagnoses Diagnosis Pain Hip Left - Primary Bursitis Trochanteric Left Primary Osteoarthritis Hip Right documented in this encounter Care Teams Flight Manager Relationship Specialty Start Date End Date Kendy Bahena M.B., Ch.B. PCP - General 02/26/22 [address] [place] [phone] documented as of this encounter
--- OUTSIDE RECORDS SUMMARY | 2022-07-07 11:57 | XMS_ITS | Encounter Summary ---
:1945 Author Organization [facility] Address [address] [place] [address] Care Team Providers Name Role Phone Kris Robles M.D., M.B.A. Primary Care Provider [phone] Encounter Details Date Type Department Care Team Description 01/16/2022 Clinical Communication Department of Internal Sandoval Davalos , Medicine in Kris Butts M.D.[place], [place] M.B.A. [address] [place] [address] [place], [place] [phone] Social History Tobacco Use Types Packs/Day Years Used Date Smoking Tobacco: Never Smokeless Tobacco: Never Alcohol Use Standard Drinks/Week Comments Yes 6 (1 standard drink = 0.6 oz pure alcoho l) Alcohol Habits Answer Date Recorded How often do you have a drink containing 4 or more times a w [place] 02/05/2022 alcohol? How many drinks containing alcohol [...] or relatives? How often do you attend scientology or More than 4 times per year 04/15/2021 pentecostal services? Do you belong to any clubs or Yes 02/05/2022 organizations such as scientology groups, unions, fraternal or athletic groups, or [...] place to sleep or slept in a long-term (including now)? Education Answer Date Recorded What is the highest level of school Master's degree (e.g., M A, MS, 03/28/2019 you have completed or the highest Doreen, MEd, WEIGHT TRAINING INSTRUCTOR, EMELYN) degree you have received? Sex Assigned at Date Recorded Male 03/27/2018 8:35 PM CDT documented as of this encounter Miscellaneous Notes Telephone Encounter - Lena Echavarria - 01/20/2022 2:10 PM CDT Left voicemail to schedule patient with Dr. De Jesus for new left hip pain first available. Please sendxray communication when scheduled. Telephone Encounter - Lena Atkins - 01/16/2022 11:26 AM CDT Reason for Communication: Patients calling and is asking for a referral to see Dr. De Jesus in [place]. Patient is having a lot of left hop pain and is was recommended for him to see provider. Please call patient when referral is sent. Current Can Nursing/Provider leave a detailed message?: no Did the patient refuse triage through Nurse line? (for symptom based concerns): na Action Needed: Please advise Name of Medication (if relevant): na Please send all scheduling replies to scheduling pool. documented in this encounter Plan of Treatment Upcoming Encounters Date Type Specialty Care Team Description 07/22/2022 Office Visit Urology Alexy Yuan M .D. [address] [place], [place] [phone] (Wo rk) 07/22/2022 Appointment Radiation Oncology Sun Hope M.D., Ph.D. [address] [place], [place] [phone] (Wo rk) documented as of this encounter Visit Diagnoses Not on filedocumented in this encounter Care Teams Mica Paster Relationship Specialty Start Date End Date Kris Robles M.D., M.B.A. PCP - General Internal Medicine 01/15/21 02/25/22 [address] [place] [phone] documented as of this encounter
--- OUTSIDE RECORDS SUMMARY | 2022-07-07 11:57 | XMS_ITS | Encounter Summary ---
:1945 Author Organization [facility] Address [address] [place] [address] Care Team Providers Name Role Phone Kendy Bahena, Ch.B. Primary Care Provider [phone] Reason for Referral Specialty Diagnoses / Procedures Referred By Contact Refer red To Contact Kendy Bahena M.B ., Ch.B. [facility] [address] [place] [phone] Referral ID Status Reason Start Date Expiration Date Visits Requ ested Visits Authorized Encounter Details Date Type Department Care Team Description 05/30/2022 Orders Only [facility] Kendy Bahena M .B., Ch.B. [address] [place], [place] [phone] (Wo rk) Social History Tobacco Use Types Packs/Day Years Used Date Smoking Tobacco: Never Smokeless Tobacco: Never Alcohol Use Standard Drinks/Week Comments Yes 6 (1 standard drink = 0.6 oz pure alcoho l) Alcohol Habits Answer Date Recorded How often do you have a drink containing 4 or more times a w [place] 02/05/2022 alcohol? How many drinks containing alcohol [...] or relatives? How often do you attend hoahaoism or More than 4 times per year 04/15/2021 anabaptist services? Do you belong to any clubs or Yes 02/05/2022 organizations such as hoahaoism groups, unions, fraternal or athletic groups, or [...] place to sleep or slept in a alf (including now)? Education Answer Date Recorded What is the highest level of school Master's degree (e.g., Shakeel Cuellar MS, 03/28/2019 you have completed or the highest Doreen, Adam, CLINICAL PROGRAM COORDINATOR, EMELYN) degree you have received? Sex Assigned at Date Recorded Male 03/27/2018 8:35 PM CDT documented as of this encounter Plan of Treatment Upcoming Encounters Date Type Specialty Care Team Description 07/22/2022 Office Visit Urology Alexy Yuan M .D. [address] [place] [phone] (Meir cronin) 07/22/2022 Appointment Radiation Oncology Sun Hope M.D., Ph.D. [address] [place] [phone] (Meir cronin) Scheduled Referrals Name Type Priority Associated Order Schedule Diagnoses Covid immunization Outpatient Referral Routine Ex pected: office visit 05/30/2022 Immuno/Booster (Approximate) , Expires: 05/30/2023 documented as of this encounter Visit Diagnoses Not on filedocumented in this encounter Care Teams Mason Foreman/Superintendant Relationship Specialty Start Date End Date Kendy Bahena M.B., Ch.B. PCP - General 02/26/[address] [phone] documented as of this encounter
--- OUTSIDE RECORDS SUMMARY | 2022-07-07 11:57 | XMS_ITS | Encounter Summary ---
:1945 Author Organization [facility] Address [address] [place] [address] Care Team Providers Name Role Phone Kendy Bahena, Ch.B. Primary Care Provider [phone] Encounter Details Date Type Department Care Team Description 03/04/2022 Clinical Communication Department of Deonte Escobedo, [facility] in .[address] [place] [phone] Social History Tobacco Use Types Packs/Day Years Used Date Smoking Tobacco: Never Smokeless Tobacco: Never Alcohol Use Standard Drinks/Week Comments Yes 6 (1 standard drink = 0.6 oz pure alcoho l) Alcohol Habits Answer Date Recorded How often do you have a drink containing 4 or more times a w [place] 02/05/2022 alcohol? How many drinks containing alcohol [...] or relatives? How often do you attend episcopal or More than 4 times per year 04/15/2021 nondenominational services? Do you belong to any clubs or Yes 02/05/2022 organizations such as episcopal groups, unions, fraternal or athletic groups, or [...] place to sleep or slept in a residential (including now)? Education Answer Date Recorded What is the highest level of school Master's degree (e.g., M A, MS, 03/28/2019 you have completed or the highest Doreen, MEd, LACQUER PIN PRESS OPERATOR, EMELYN) degree you have received? Sex Assigned at Date Recorded Male 03/27/2018 8:35 PM CDT documented as of this encounter Miscellaneous Notes Telephone Encounter - Lise Dumont - 03/04/2022 1:35 PM CDT Who is calling: Patient Release of information on file: N/A Best call back number: [phone] NOT okay to leave a detailed message. Physician: Dr. Edinson De Jesus Side: left Body Part/Region: Hip Reason for call: Other: Patient would like to possibly set up a phone conversation with Dr. De Jesus - he is considering changing direction and would like to see what Dr. De Jesus would recommend - he would be available for a call tomorrow afternoon or Wednesdayfor a phone call - please let patient know via email or phone msg so he can expect the call if possible Action: Message routed to [facility] Athletic Trainers at [facility] documented in this encounter Plan of Treatment Upcoming Encounters Date Type Specialty Care Team Description 07/22/2022 Office Visit Urology Alexy Yuan M .D. [address] [place] [phone] (Wo rk) 07/22/2022 Appointment Radiation Oncology Sun Hope M.D., Ph.D. [address] [place], [place] [phone] (Wo rk) documented as of this encounter Visit Diagnoses Not on filedocumented in this encounter Care Teams Program Rep Relationship Specialty Start Date End Date Kendy Bahena M.B., Ch.B. PCP - General 02/26/22 [address] [place] [phone] documented as of this encounter
--- OUTSIDE RECORDS SUMMARY | 2022-07-07 11:57 | XMS_ITS | Encounter Summary ---
:1945 Author Organization [facility] Address [address] [place] [address] Care Team Providers Name Role Phone Kris Robles M.D., M.B.A. Primary Care Provider [phone] Encounter Details Date Type Department Care Team Description 07/14/2021 Clinical Communication [facility] [place] [address] [place] [phone] Social History Tobacco Use Types Packs/Day Years Used Date Smoking Tobacco: Never Smokeless Tobacco: Never Alcohol Use Standard Drinks/Week Comments Yes 6 (1 standard drink = 0.6 oz pure alcoho l) Alcohol Habits Answer Date Recorded How often do you have a drink containing 4 or more times a w [place] 02/05/2022 alcohol? How many drinks containing alcohol [...] or relatives? How often do you attend roman catholic or More than 4 times per year 04/15/2021 yazidi services? Do you belong to any clubs or Yes 02/05/2022 organizations such as roman catholic groups, unions, fraternal or athletic groups, or [...] have completed or the highest Doreen, MEd, HEAD STRENGTH AND CONDITIONING COACH, EMELYN) degree you have received? Sex Assigned at Date Recorded Male 03/27/2018 8:35 PM CDT documented as of this encounter Plan of Treatment Upcoming Encounters Date Type Specialty Care Team Description 07/22/2022 Office Visit Urology Alexy Yuan M .D. [address] [place], [place] [phone] (Wo mehrdad) 07/22/2022 Appointment Radiation Oncology Sun Hope M.D., Ph.D. [address] [place], [place] [phone] (Wo rk) documented as of this encounter Visit Diagnoses Not on filedocumented in this encounter Care Teams Rubber Printing Machine Operator Relationship Specialty Start Date End Date Kris Robles M.D., M.B.A. PCP - General Internal Medicine 01/15/21 02/25/22 [address] [place] [phone] documented as of this encounter
--- OUTSIDE RECORDS SUMMARY | 2022-07-07 11:57 | XMS_ITS | Encounter Summary ---
:1945 Author Organization [facility] Address [address] [place] [address] Care Team Providers Name Role Phone Kris Robles M.D., M.B.A. Primary Care Provider [phone] Reason for Referral Outpatient (Routine) - Closed Specialty Diagnoses / Procedures Referred By Contact Refer red To Contact Diagnoses Pain Hip Left Edinson De Jesus M.D. [facility] Procedures DX Hip And Pelvis Left 2-3 Views [address] [facility], [address] [place], [place] [address] Referral ID Status Reason Start Date Expiration Date Visits Requ ested Visits Authorized [id number] Closed 01/21/2022 01/21/2023 1 1 Encounter Details Date Type Department Care Team Description 01/21/2022 Clinical Communication Department of Deonte Escobedo, Medicine in .[place] [address] [place] [phone] Social History Tobacco Use Types Packs/Day Years Used Date Smoking Tobacco: Never Smokeless Tobacco: Never Alcohol Use Standard Drinks/Week Comments Yes 6 (1 standard drink = 0.6 oz pure alcoho l) Alcohol Habits Answer Date Recorded How often do you have a drink containing 4 or more times a w [place]al[place] 02/05/2022 alcohol? How many drinks containing alcohol [...] or relatives? How often do you attend muslim or More than 4 times per year 04/15/2021 muslim services? Do you belong to any clubs or Yes 02/05/2022 organizations such as muslim groups, unions, [employer] or athletic groups, or school groups? How [...] place to sleep or slept in a penitentiary (including now)? Education Answer Date Recorded What is the highest level of school Master's degree (e.g., M A, MS, 03/28/2019 you have completed or the highest Doreen, MEd, APPLICATIONS PACKAGER, EMELYN) degree you have received? Sex Assigned at Date Recorded Male 03/27/2018 8:35 PM CDT documented as of this encounter Miscellaneous Notes Telephone Encounter - Neo Amaya L.A.T., A.T.C. - 01/21/2022 12:59 PM CDT Orders were placed per protocol. Please schedule ordered imaging. Thanks! Telephone Encounter - Lena Echavarria - 01/21/2022 11:[address] De Jesus has agreed to see this patient for left hip pain. Please place xray orders if needed. Thanks! documented in this encounter Plan of Treatment Upcoming Encounters Date Type Specialty Care Team Description 07/22/2022 Office Visit Urology Alexy Yuan M .D. [address] [place], [place] [phone] (Wo rk) 07/22/2022 Appointment Radiation Oncology Sun Hope M.D., Ph.D. [address] [place], [place] [phone] (Wo rk) documented as of this encounter Results DX Hip And Pelvis [...] the sacroiliac joints. Edinson De Jesus M.D. [facility] [place] documented in this encounter Visit Diagnoses Diagnosis Pain Hip Left - Primary Pain Hip Left documented in this encounter Care Teams Nuclear Physician Relationship Specialty Start Date End Date Kris Robles M.D., M.B.A. PCP - General Internal Medicine 01/15/21 02/25/[address] [phone] documented as of this encounter
--- OUTSIDE RECORDS SUMMARY | 2022-07-07 11:58 | XMS_ITS | Encounter Summary ---
:1945 Author Organization [facility] Address [address] [place] [address] Care Team Providers Name Role Phone Kris Robles M.D., M.B.A. Primary Care Provider [phone] Reason for Visit Reason Comments Med Refill Encounter Details Date Type Department Care Team Description 05/01/2021 Refill Department of Internal Medicine Ermias Angel, Med Refill in [facility] D.O. [address] [place] [address] [place] [phone] (Wo rk) Social History Tobacco Use Types Packs/Day Years Used Date Smoking Tobacco: Never Smokeless Tobacco: Never Alcohol Use Standard Drinks/Week Comments Yes 6 (1 standard drink = 0.6 oz pure alcoho l) Alcohol Habits Answer Date Recorded How often do you have a drink containing 4 or more times a w [place] 02/05/2022 alcohol? How many drinks containing alcohol [...] or relatives? How often do you attend holiness or More than 4 times per year 04/15/2021 mormon services? Do you belong to any clubs or Yes 02/05/2022 organizations such as holiness groups, unions, fraternal or athletic groups, or [...] have completed or the highest Doreen, MEd, ASSOCIATE PROFESSOR OF GEOGRAPHY, EMELYN) degree you have received? Sex Assigned at Date Recorded Male 03/27/2018 8:35 PM CDT documented as of this encounter Plan of Treatment Upcoming Encounters Date Type Specialty Care Team Description 07/22/2022 Office Visit Urology Alexy Yuan M .D. [address] [place], [place] [phone] (Wo mehrdad) 07/22/2022 Appointment Radiation Oncology Sun Hope M.D., Ph.D. 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 PCP - General Internal Medicine 01/15/21 02/25/22 [address] [place] [phone] documented as of this encounter
--- OUTSIDE RECORDS SUMMARY | 2022-07-07 11:58 | XMS_ITS | Encounter Summary ---
:1945 Author Organization [facility] Address [address] [place] [address] Care Team Providers Name Role Phone Kris Robles M.D., M.B.A. Primary Care Provider [phone] Encounter Details Date Type Department Care Team Description 05/16/2021 Clinical Communication Department of Urology Wes Juares in [place], [place], SOLUTION PROFESSIONAL, [facility] [address] [place] [phone] Social History Tobacco Use Types Packs/Day Years Used Date Smoking Tobacco: Never Smokeless Tobacco: Never Alcohol Use Standard Drinks/Week Comments Yes 6 (1 standard drink = 0.6 oz pure alcoho l) Alcohol Habits Answer Date Recorded How often do you have a drink containing 4 or more times a w [place] 02/05/2022 alcohol? How many drinks containing alcohol [...] or relatives? How often do you attend rastafarian or More than 4 times per year 04/15/2021 amish services? Do you belong to any clubs or Yes 02/05/2022 organizations such as rastafarian groups, unions, fraternal or athletic groups, or [...] have completed or the highest Doreen, MEd, PUNCHER AND FASTENER, EMELYN) degree you have received? Sex Assigned at Date Recorded Male 03/27/2018 8:35 PM CDT documented as of this encounter Miscellaneous Notes Telephone Encounter - Malou Bravo - 05/16/2021 3:23 PM CDT Patient returning call, . Has additional concerns about biopsy that he would like addressed before the weekend Telephone Encounter - Nan Hall, RJulianN. - 05/16/2021 3:05 PM CDT Patient scheduled for prostate biopsy. No further needs. Telephone Encounter - Lena Atkins - 05/16/2021 2:12 PM CDT Patient is returning a call to a nurse. Please call patient back. Telephone Encounter - Nan Hall RNicolle. - 05/16/2021 1:44 PM CDT Left message for patient to call back. Telephone Encounter - Kirstin Garvin - 05/16/2021 11:37 AM CDT Reason for Communication: Patient called in to schedule a biopsy of the prostate. Patient stated that Lorene mentioned to him that she would help get him scheduled before Dr. Garrido leaves for vacation time and patient has not heard anything back yet. Business Practices Supervisor could not schedule biopsy appt. Current Can Nursing/Provider leave a detailed message: No Did the patient refuse triage through Nurse line? (for symptom based concerns): N/a Action Needed: Please call patient back and help schedule prostate biopsy. Name of Medication (if relevant): N/a documented in this encounter Plan of Treatment Upcoming Encounters Date Type Specialty Care Team Description 07/22/2022 Office Visit Urology Alexy Yuan M .D. [address] [place], [place] [phone] (Meir cronin) 07/22/2022 Appointment Radiation Oncology Sun Hope M.D., Ph.D. [address] [place], [place] [phone] (Meir cronin) documented as of this encounter Visit Diagnoses Not on filedocumented in this encounter Care Teams Spearer Relationship Specialty Start Date End Date Kris Robles M.D., M.B.A. PCP - General Internal Medicine 01/15/21 02/25/[address] [phone] documented as of this encounter
--- OUTSIDE RECORDS SUMMARY | 2022-07-07 11:58 | XMS_ITS | Encounter Summary ---
:1945 Author Organization [facility] Address [address] [place] [address] Care Team Providers Name Role Phone Kris Robles M.D., M.B.A. Primary Care Provider [phone] Encounter Details Date Type Department Care Team Description 05/20/2021 Hospital Encounter Department of Lorene Juares Laboratory Medicine A, BACK LINE COOK, C.N .P. Prostate-Specific in [place], [address] [address] [place], [place] [phone] (Work) [phone] Social History Tobacco Use Types Packs/Day Years Used Date Smoking Tobacco: Never Smokeless Tobacco: Never Alcohol Use Standard Drinks/Week Comments Yes 6 (1 standard drink = 0.6 oz pure alcoho l) Alcohol Habits Answer Date Recorded How often do you have a drink containing 4 or more times a w [place] 02/05/2022 alcohol? How many drinks containing alcohol [...] More than 4 times per year 04/15/2021 yarsani services? Do you belong to any clubs [...] 03/28/2019 you have completed or the highest oDreen, MEd, SLOT MACHINE FLOOR PERSON, EMELYN) degree you have received? Sex Assigned [...] doses if chest pain continues. atorvastatin (LIPITOR) 80 TAKE ONE TABLET BY 90 tablet 3 04/23/2022 mg tabletIndications: MOUTH EVERY DAY Coronary Artery Disease Without Angina Pectoris, Hyperlipidemia cyclobenzaprine Take 1 tablet (10 mg 30 tablet 0 03/11/2021 06/06/2021 (FLEXERIL) 10 mg total) by mouth at tabletIndications: Pain bedtime as needed Hip Left for muscle spasms. diclofenac sodium Apply 4 g topically 100 g 2 1 06/06/2021 (VOLTAREN) 1 % 4 (four) times a gelIndications: Pain Hip day. Apply to left Left hip. losartan (COZAAR) 50 mg TAKE ONE TABLET BY 90 tablet 3 04/1404/23/2022 tablet MOUTH EVERY DAY documented as of this encounter Plan of Treatment Upcoming Encounters Date Type Specialty Care Team Description 07/22/2022 Office Visit Urology Alexy Yuan M .D. [address] [place], [place] [phone] (Wo rk) 07/22/2022 Appointment Radiation Oncology Sun Hope M.D., Ph.D. [address] [place], [place] [phone] (Wo rk) documented as of this encounter Procedures Procedure Name Priority Date/Time Associated Comments Diagnosis BACTERIAL CULTURE, Routine 05/20/2021 11:32 Elevated Resul ts for this AEROBIC + SUSC, URINE AM CDT Prostate-Specific p rocedure are in Antigen the results section. URINALYSIS WITH Routine 05/20/2021 11:32 Elevated Results for this MICROSCOPIC AM CDT Prostate-Specific procedure are in Antigen the results section. documented in this encounter Results (ABNORMAL) Urinalysis with Microscopic: Urine, Midstream (05/20/2021 11:32 AM CDT) athologist Signature Source Midstream 05/20/2021 FB60 11:47 AM CDT Clarity Clear Clear 05/20/2021 FB60 11:47 AM CDT Color Yellow 05/20/2021 FB60 11:47 AM CDT Comment: ----REFERENCE VALUE---- Colorless Yellow Bree Blood Negative Negative 05/20/2021 11:47 AM CDT FB60 Nitrite Negative Negative 05/20/2021 11:47 AM CDT FB60 Leukocyte Esterase Negative Negative 05/20/2021 11:47 AM C DT FB60 Protein Negative mg/dL 05/20/2021 11:47 AM CDT FB60 Comment: ----REFERENCE VALUE---- Negative Trace Glucose Negative Negative mg/dL 05/20/2021 11:47 AM CDT F B60 Ketones, QI(U) Negative Negative mg/dL 05/20/2021 11:47 AM CDT FB60 Bilirubin Small (A) Negative 05/20/2021 11:47 AM CDT FB60 pH 5.5 5.0 - 8.0 05/20/2021 11:47 AM CDT FB60 Specific [place] 1.025 1.001 - 1.035 05/20/2021 11:47 AM CDT FB60 Urobilinogen 0.2 0.2 - 1.0 mg/dL 05/20/2021 11:47 AM C DT FB60 White Blood Cells Occ-3 /hpf 05/20/2021 11:47 AM CD T FB60 Comment: ----REFERENCE VALUE---- Males: 0-3 Females: 0-10 Unknown: 0-10 Red Blood Cells None Seen 0 - 2 /hpf 05/20/2021 11:47 AM CDT FB60 Specimen Anatomical Collection Method Collection Time Receive d Time (Source) Location / / Volume Laterality Urine (Urine, 05/20/2021 11:32 05/20/2021 Midstream) AM CDT 11:37 AM CDT Lorene Juares APRN, C.N.P. LAB URINE ORDERABLES Performing Organization Address City/State/ZIP Code Phon e Number [place] [address] [place], [place] [id number] [place] [address] LAB FB60 [place] [address] System in [address] (ABNORMAL) Bacterial Culture, Aerobic + Susc, Urine (05/20/2021 11:32 AM CDT) [facility] gist Method Time Signature Urine Culture Organism 05/21/2021 MKTO present 11:56 AM CDT <10,000 cfu/mL (A) Specimen Anatomical Collection Method Collection Time Receive d Time (Source) Location / / Volume Laterality Urine (Urine, 05/20/2021 11:32 05/20/2021 2:19 Midstream) AM CDT PM CDT Comment: Specimen Source Site: Urine Lorene Juares APRN, C.N.P. LAB MICROBIOLOGY - GENE [facility] ORDERABLES Performing Organization Address City/State/ZIP Code Phon e Number [facility]- [address] [place] [id number] [place] [address] System in [place] [address] [facility] documented in this encounter Visit Diagnoses Diagnosis Elevated Prostate-Specific Antigen documented in this encounter Care Teams Postal Supervisor Relationship Specialty Start Date End Date Kris Robles M.D., M.B.A. PCP - General Internal Medicine 01/15/21 02/25/[address] [phone] documented as of this encounter
--- OUTSIDE RECORDS SUMMARY | 2022-07-07 11:58 | XMS_ITS | Encounter Summary ---
:1945 Author Organization [facility] Address [address] [place] [address] Care Team Providers Name Role Phone Kris Robles M.D., M.B.A. Primary Care Provider [phone] Reason for Referral Outpatient (Routine) - Closed Specialty Diagnoses / Procedures Referred By Contact Refer red To Contact Diagnoses Pain Hip Left Naty Mena [facility] Region Procedures ryl-vrqo-dxrodsea-elbow arthrocentesis: L greater troch bursa P.A.-C. [address] [place] [address] Referral ID Status Reason Start Date Expiration Date Visits Requ ested Visits Authorized [id number] Closed 06/30/2021 06/30/2022 1 1 Reason for Visit Reason Comments Pain Arthroplasty Appointment Request (Routine) - Closed Specialty Diagnoses / Procedures Referred By Contact Refer red To Contact Orthopedic Surgery Referral ID Status Reason Start Date Expiration Date Visits Requ ested Visits Authorized [id number] Closed 06/16/2021 06/16/2022 1 1 Encounter Details Date Type Department Care Team Description 06/30/2021 Office Visit Department of Naty Mena Pain Hip Left (Primary Orthopedic Surgery in [place] [facility] [place], [place] [address] [place] [phone] Social History Tobacco Use Types Packs/Day Years Used Date Smoking Tobacco: Never Smokeless Tobacco: Never Alcohol Use Standard Drinks/Week Comments Yes 6 (1 standard drink = 0.6 oz pure alcoho l) Alcohol Habits Answer Date Recorded How often do you have a drink containing 4 or more times a w [place] 02/05/2022 alcohol? How many drinks containing alcohol [...] have completed or the highest Doreen, MEd, NATURAL RESOURCES TECHNICIAN, EMELYN) degree you have received? Sex Assigned at Date Recorded Male 03/27/2018 8:35 PM CDT documented as of this encounter Last Filed Vital Signs Vital Sign Reading Time Taken Comments Blood Pressure - - Pulse - - Temperature - - Respiratory Rate - - Oxygen Saturation - - Inhaled Oxygen Concentration - - Weight 85.6 kg (188 lb 11.4 oz) 06/30/2021 10:52 AM CDT Height 181.7 cm (5' 11.54) 06/30/2021 10:52 AM CDT Body Mass Index 25.93 06/30/2021 10:52 AM CDT documented in this encounter Procedure Notes Naty Mena P.A.-C. - 06/30/2021 8:30 AM CDTAssociated Order(s): nlf-mtlz-fyuemvsn-elbow arthrocentesis: L greater troch bursa Post-Procedure Diagnose(s): Pain Hip Left Hip site - L greater troch bursa : injection only Date/Time: 06/30/2021 9:15 AM Performed by: Naty Mena P.A.-C. Authorized by: Naty Mena P.A.-C. PROCEDURE DETAILS Procedure Location hip Hip site: L greater troch bursa Site prep: patient was prepped and draped in usual sterile fashion Patient position: seated Procedural approach: posterior Procedure performed: injection only Needle gauge: 21 G Procedural Medication The following medications were administered at the target site(s) Local anesthetic: 8 mL lidocaine 10 mg/mL (1 %) Corticosteroid: 9 mg betamethasone acetate & sodium phosphate 6 mg/mL CONSENT Consent obtained: written UNIVERSAL PROTOCOL All relevant documentation and testing were reviewed and available. All required blood products, implants, devices and or special equipment were made available as applicable. Pre-procedure verificationwas conducted and the correct site was marked if required. A fire risk assessment was done as applicable. The procedural time-out was conducted prior to performing the procedure and confirmed in a procedural pause. PRE-PROCEDURE DETAILS Procedure purpose: therapeutic Indications: Pain Appropriate hand hygiene, gown, cap, mask, protective eyewear, sterile gloves, skin preparation, sterile drape, and strict aseptic technique were utilized as applicable for the procedure. Site preparation: chlorhexidine SEDATION / ANESTHESIA Anesthesia method: topical application Topical application type: aerosol cold spray POST-PROCEDURE DETAILS Procedure completed successfully: yes Complications: no apparent complications Discharge instructions: ice area as needed for comfort documented in this encounter Consult Notes Naty Mena P.A.-C. - 06/30/2021 8:30 AM CDT CHIEF COMPLAINT Left lateral hip pain HISTORY OF PRESENT ILLNESS Mr. Sheldon is a pleasant 75 y.o. year old male here today for left lateral hip pain. He had his lefthip replaced in [place] in September 2019. He is doing well in terms of the hip replacement but is having lateral hip pain. He was seen in [place] by Dr. Encarnacion in January 2021 for this concern, physical therapy was recommended. He has been doing the therapy exercises, he thinks that this was somewhat helpful for him but he continues to have lateral hip pain. He enjoys walking for exercise, he most recently would walk 3-4 miles per day. He has been unable to do this secondary to the lateral hip pain. He did take prednisone for 10 days which was helpful. He points the lateral hip when localizing his pain. Occasionally he does have some anterior hip pain. REVIEW OF SYSTEMS Please see HPI for current concerns, remainder of review of systems reviewed and are negative. PHYSICAL EXAM GENERAL: This is a well-nourished, well-developed 75 y.o. male. He is alert and oriented x3. No acute distress. He is cooperative and responds appropriately to all questions. MUSCULOSKELETAL: Internal and external rotation of the hip causes significant lateral hip pain. Tenderness to palpation of the lateral greater trochanter. No tenderness to palpation of the lateral leg down to the IT band insertion. No significant anterior groin tenderness. Flexion of the hip causes lateral hip pain. NEURO: Sensation is intact to light touch throughout left lower extremity. Cap refill is less than 2seconds. IMAGING Left hip x-rays performed on 02/03/2021 reviewed and show a left total hip arthroplasty, components are well seated and there is no signs of lucency. Heterotopic ossification of the left hip. Degenerative changes of the lower lumbar spine. ASSESSMENT/PLAN #1 Pain Hip Left We have discussed that his hip pain is likely related to greater trochanteric bursitis. We have discussed that he has done significant conservative treatment for this without significant benefit. We have discussed proceeding with a left trochanteric bursa injection. He wishes to proceed with this injection. Please see my procedure note for specifics of the injection. We will be in contact with him mendoza few weeks to see how he is feeling after this injection. He will hold off on strenuous activity over the next 1 week. He can do some stretching exercises. We have provided him with a handout on lateral hip pain. He will gradually resume his regular activity as pain allows. I will plan no formal follow-up with him at this time, however I would be happy to see him any time in the future. documented in this encounter Plan of Treatment Upcoming Encounters Date Type Specialty Care Team Description 07/22/2022 Office Visit Urology Alexy Yuan M .D. [address] [place] [address] [phone] (Meir cronin) 07/22/2022 Appointment Radiation Oncology Sun Hope M.D., Ph.D. [address] [place] [address] [phone] (Meir cronin) documented as of this encounter Procedures Procedure Name Priority Date/Time Associated Diagnosis Comme nts [place] ARTHCS ASP/INJ Routine 06/30/2021 9:15 AM Pain Hip Left Res ults for this MJR JT WO US CDT procedure are i n the results section. documented in this encounter Results [place] ARTHCS ASP/INJ MJR JT WO US (06/30/2021 9:15 AM CDT) Narrative MMODAL - 06/30/2021 9:15 AM CDT Naty Mena P.A.-C. ? 06/30/2021 10:17 AM Hip site - L greater troch bursa : injec tion only Date/Time: 06/30/2021 9:15 AM Performed by: Naty Mena P.A.- C. Authorized by: Naty Mena P.A. -C. PROCEDURE DETAILS Procedure Location hip Hip site: L greater troch bursa Site prep: patient was prepped and drape d in usual sterile fashion ?? Patient position: seated Procedural approach: posterior Procedure performed: injection only Needle gauge: 21 G Procedural Medication The following medications were administe red at the target site(s) Local anesthetic: 8 mL lidocaine 10 mg/m L (1 %) Corticosteroid: 9 mg betamethasone aceta te & sodium phosphate 6 mg/mL CONSENT Consent obtained: written UNIVERSAL PROTOCOL All relevant documentation and testing w ere reviewed and available. All required blood products, implants, devic es and or special equipment were made available as applicable. Pre-proced ure verification was conducted and the correct site was marked if required. A fire risk assessment was done as applicable. The procedural time-out w as conducted prior to performing the procedure and confirmed in a procedu ral pause. PRE-PROCEDURE DETAILS Procedure purpose: therapeutic Indications: Pain Appropriate hand hygiene, gown, cap, mas k, protective eyewear, sterile gloves, skin preparation, sterile drape, and strict aseptic technique were utilized as applicable for the procedure . Site preparation: chlorhexidine SEDATION / ANESTHESIA Anesthesia method: topical application Topical application type: aerosol cold s pray POST-PROCEDURE DETAILS Procedure completed successfully: yes Complications: no apparent complications ?? Discharge instructions: ice area as need ed for comfort Naty Mena P.A.-C. PROCEDURE/MINOR SURGICAL OR DERABLES Performing Organization Address City/State/ZIP Code Phon e Number MMODAL MMODAL NA documented in this encounter Visit Diagnoses Diagnosis Pain Hip Left - Primary documented in this encounter Administered Medications Inactive Administered Medications - up to 3 most recent administrations Medication Order MAR Action Action Date Dose Rate Site betamethasone acetate & sodium Given 06/30/2021 9:15 AM CDT 9 mg phosphate injection 9 mg (CELESTONE SOLUSPAN) 9 mg, intra-articular, One-Time Injection, Starting on Wed06/30/21 at 0915, For 1 dose lidocaine 10 mg/mL (1 %) injection 8 mL Given 06/30/2021 9:15 AM CDT 8 mL (XYLOCAINE) 8 mL, infiltration, One-Time Injection, Starting on Wed06/30/21 at 0915, For 1 dose documented in this encounter Care Teams Asset Management Lead Relationship Specialty Start Date End Date Kris Robles M.D., M.B.A. PCP - General Internal Medicine 01/15/21 02/25/22 [address] [place] [phone] documented as of this encounter
--- OUTSIDE RECORDS SUMMARY | 2022-07-07 11:58 | XMS_ITS | Encounter Summary ---
:1945 Author Organization [facility] Address [address] [place] [address] Care Team Providers Name Role Phone Kris Robles M.D., M.B.A. Primary Care Provider [phone] Encounter Details Date Type Department Care Team Description 05/21/2021 Clinical Communication Department of Urology Koffi Garrido in [place], [place] M.D. [address] [place] [address] [place], [place] [phone] Social History Tobacco Use Types Packs/Day Years Used Date Smoking Tobacco: Never Smokeless Tobacco: Never Alcohol Use Standard Drinks/Week Comments Yes 6 (1 standard drink = 0.6 oz pure alcoho l) Alcohol Habits Answer Date Recorded How often do you have a drink containing 4 or more times a w [place] 02/05/2022 alcohol? How many drinks containing alcohol [...] or relatives? How often do you attend yazdanism or More than 4 times per year 04/15/2021 temple services? Do you belong to any clubs or Yes 02/05/2022 organizations such as yazdanism groups, unions, fraternal or athletic groups, or [...] have completed or the highest Doreen, MEd, FRAME ALIGNER, EMELYN) degree you have received? Sex Assigned at Date Recorded Male 03/27/2018 8:35 PM CDT documented as of this encounter Miscellaneous Notes Telephone Encounter - Izzy Ray R.N. - 05/21/2021 4:[address] Garrido, patient informed to hold aspirin or other blood thinners for 7-10 days prior to prostate biopsy and may resume one day post biopsy. Reiterated to take first antibiotic tablet and enema two hours prior to biopsy time. Patient verbalized understanding. Patient will contact clinic to res chedule prostate biopsy after holding aspiring. Telephone Encounter - Izzy Ray R.N. - 05/21/2021 11:38 AM CDT Patient was contacted by RAHUL Uro RN. Patient states he is currently taking Aspirin 81 mg daily. Patient informed typically needs to hold aspirin and blood thinners for 7-10 days, patient states unaware but is willing to reschedule biopsy to next week if needed as long as it is the same way as you guysdo not the one they go in from the front. Telephone Encounter - Izzy Ray R.N. - 05/21/2021 11:08 AM CDT OW Uro RN spoke with [place] medical field representative who states the referring/ordering provider gives the instructions to what medications need to be held and what timeframe. Provider Blanquita is out of clinic, will forward to Dr. Garrido to review. Telephone Encounter - Lena Atkins - 05/21/2021 10:06 AM CDT Reason for Communication: Patient is calling in and stated that he would like a nurse to call him back. Patient stated that he is having a procedure done in [place] and they will not tell him when heneeds to stop taking Asprin. Patient also would like to know who will be reading the results. He would like to know who is supposed to make the appointment with. Please call patient back. Current Can Nursing/Provider leave a detailed message?: no Did the patient refuse triage through Nurse line? (for symptom based concerns): an Action Needed: Please call patient Name of Medication (if relevant): na Please send all scheduling replies to scheduling pool. documented in this encounter Plan of Treatment Upcoming Encounters Date Type Specialty Care Team Description 07/22/2022 Office Visit Urology Alexy Yuan M .D. [address] [place], [place] [phone] (Meir cronin) 07/22/2022 Appointment Radiation Oncology Sun Hope M.D., Ph.D. 200 [place], [place] [phone] (Meir cronin) documented as of this encounter Visit Diagnoses Not on filedocumented in this encounter Care Teams Acupressure Therapist Relationship Specialty Start Date End Date Kris Robles M.D., M.B.A. PCP - General Internal Medicine 01/15/21 02/25/[address] [phone] documented as of this encounter
--- OUTSIDE RECORDS SUMMARY | 2022-07-07 11:58 | XMS_ITS | Encounter Summary ---
:1945 Author Organization [facility] Address [address] [place] [address] Care Team Providers Name Role Phone Kris Robles M.D., M.B.A. Primary Care Provider [phone] Encounter Details Date Type Department Care Team Description 04/21/2021 Hospital Encounter Department of Lorene Juares Laboratory Medicine A, DRUG CLERK, C.N .P. Prostate-Specific in [place], [address] [address] [place], [place] [phone] (Work) [phone] Social History Tobacco Use Types Packs/Day Years Used Date Smoking Tobacco: Never Smokeless Tobacco: Never Alcohol Use Standard Drinks/Week Comments Yes 6 (1 standard drink = 0.6 oz pure alcoho l) Alcohol Habits Answer Date Recorded How often do you have a drink containing 4 or more times a w [place] 02/05/2022 alcohol? How many drinks containing alcohol [...] or relatives? How often do you attend anabaptist or More than 4 times per year 04/15/2021 yarsanism services? Do you belong to any clubs or Yes 02/05/2022 organizations such as anabaptist groups, unions, fraternal or athletic groups, or [...] have completed or the highest Doreen, MEd, CERAMIC PAINTER, EMELYN) degree you have received? Sex Assigned at Date Recorded Male 03/27/2018 8:35 PM CDT documented as of this encounter Medications at Time of Discharge Medication Sig Dispensed Refills Start Date End Date acetaminophen (TYLENOL) Take 100 mg by mouth 0 500 mg tablet 3 (three) times a day. aspirin 81 mg chewable Chew 1 tablet daily. 0 03/2013 tablet nitroglycerin (NITROSTAT) Place 1 tablet (0.4 25 [...] 2 additional doses if chest pain continues. predniSONE (DELTASONE) 20 Take 2 tablets (40 9 tablet 0 04/25/2021 mg tablet mg total) by mouth daily for 2 days, THEN 1 tablet (20 mg total) daily for 3 days, THEN 0.5 tablets (10 mg total) daily for 3 days. atorvastatin (LIPITOR) 80 Take 1 tablet (80 mg 90 tablet 3 04/16/2020 05/02/2021 mg tabletIndications: total) by mouth Coronary Artery Disease daily. Without Angina Pectoris, Hyperlipidemia cyclobenzaprine Take 1 tablet (10 mg 30 tablet 0 03/11/2021 06/06/2021 (FLEXERIL) 10 mg total) by mouth at tabletIndications: Pain bedtime as needed Hip Left for muscle spasms. diclofenac sodium Apply 4 g topically 100 g 2 1 06/06/2021 (VOLTAREN) 1 % 4 (four) times a gelIndications: Pain Hip day. Apply to left Left hip. losartan (COZAAR) 50 mg Take 1 tablet (50 mg 90 tablet 3 05/02/2021 tablet total) by mouth daily. metoprolol succinate Take 1 tablet (25 mg 90 tablet 3 04/1605/02/2021 (TOPROL-XL) 25 mg 24 hr total) by mouth tabletIndications: daily. Coronary Artery Disease Without Angina Pectoris, Hypertension Essential Primary documented as of this encounter Plan of Treatment Upcoming Encounters Date Type Specialty Care Team Description 07/22/2022 Office Visit Urology Alexy Yuan M .D. [address] [place] [address] [phone] (Wo rk) 07/22/2022 Appointment Radiation Oncology Sun Hope M.D., Ph.D. [address] [place] [address] [phone] (Wo rk) documented as of this encounter Procedures Procedure Name Priority Date/Time Associated Comments Diagnosis URINALYSIS WITH Routine 04/21/2021 9:51 AM Elevated Result s for this MICROSCOPIC IF CDT Prostate-Specific procedur e are in INDICATED, U Antigen the results section. documented in this encounter Results (ABNORMAL) Urinalysis with Microscopic if Indicated (04/21/2021 9:51 AM CDT) athologist Signature Source Midstream 04/21/2021 FB60 9:53 AM CDT Clarity Clear Clear 04/21/2021 FB60 9:53 AM CDT Color Yellow 04/21/2021 FB60 9:53 AM CDT Comment: ----REFERENCE VALUE---- Colorless Yellow Bree Blood Negative Negative 04/21/2021 9:53 AM CDT FB60 Nitrite Negative Negative 04/21/2021 9:53 AM CDT FB60 Leukocyte Esterase Negative Negative 04/21/2021 9:53 AM CD T FB60 Protein Negative mg/dL 04/21/2021 9:53 AM CDT FB60 Comment: ----REFERENCE VALUE---- Negative Trace Glucose Negative Negative mg/dL 04/21/2021 9:53 AM CDT FB 60 Ketones, QI(U) Trace (A) Negative mg/dL 04/21/2021 9:53 AM C DT FB60 Bilirubin Negative Negative 04/21/2021 9:53 AM CDT FB60 pH 6.0 5.0 - 8.0 04/21/2021 9:53 AM CDT FB60 Specific [place] 1.020 1.001 - 1.035 04/21/2021 9:53 AM CDT FB60 Urobilinogen 0.2 0.2 - 1.0 mg/dL 04/21/2021 9:53 AM CD T FB60 Specimen Anatomical Collection Method Collection Time Receive d Time (Source) Location / / Volume Laterality Urine (Urine, 04/21/2021 9:51 AM 04/21/20 9:51 Clean Catch) CDT AM CDT Ezio Kenney APRNNJulianP. LAB URINE ORDERABLES Performing Organization Address City/State/ZIP Code Phon e Number [address] [place] [address] [facility] [place] [address] System [address] documented in this encounter Visit Diagnoses Diagnosis Elevated Prostate-Specific Antigen documented in this encounter Care Teams Entry Analyst Relationship Specialty Start Date End Date Kris Rolbes M.D., M.B.A. PCP - General Internal Medicine 01/15/21 02/25/22 [address] [place] [phone] documented as of this encounter
--- OUTSIDE RECORDS SUMMARY | 2022-07-07 11:58 | XMS_ITS | Encounter Summary ---
:1945 Author Organization [facility] Address [address] [place] [address] Care Team Providers Name Role Phone Kris Robles M.D., M.B.A. Primary Care Provider [phone] Reason for Visit Reason Comments Appointment Encounter Details Date Type Department Care Team Description 06/05/2021 Clinical Communication Department of Urology Izzy Ray, Appointment in [facility] R.N. [address] [place] [address] [place], [place] [phone] Social History Tobacco Use Types Packs/Day Years Used Date Smoking Tobacco: Never Smokeless Tobacco: Never Alcohol Use Standard Drinks/Week Comments Yes 6 (1 standard drink = 0.6 oz pure alcoho l) Alcohol Habits Answer Date Recorded How often do you have a drink containing 4 or more times a w [place] 02/05/2022 alcohol? How many drinks containing alcohol [...] have completed or the highest Doreen, MEd, PRESCHOOL TEACHER, EMELYN) degree you have received? Sex Assigned at Date Recorded Male 03/27/2018 8:35 PM CDT documented as of this encounter Miscellaneous Notes Telephone Encounter - Izzy Ray R.N. - 06/05/2021 11:29 AM CDT RAHUL Uro RN called and left message for patient to call urology back directly. Patient has an upcomingappointment with RAHUL jacinto, Dr. Garrido on 09/30/20 and 07/03/21. Appears there is a note on his [place] uro appointment 06/12/21, patient wants to review results and continue care in [place]. documented in this encounter Plan of Treatment Upcoming Encounters Date Type Specialty Care Team Description 07/22/2022 Office Visit Urology Aleyx Yuan M .D. [address] [place] [phone] (Meir cronin) 07/22/2022 Appointment Radiation Oncology Sun Hope M.D., Ph.D. [address] [place] [address] [phone] (Wo rk) documented as of this encounter Visit Diagnoses Not on filedocumented in this encounter Care Teams Acid Maker Relationship Specialty Start Date End Date Kris Robles M.D., M.B.A. PCP - General Internal Medicine 01/15/21 02/25/[address] [phone] documented as of this encounter
--- OUTSIDE RECORDS SUMMARY | 2022-07-07 11:58 | XMS_ITS | Encounter Summary ---
:1945 Author Organization [facility] Address [address] [place] [address] Care Team Providers Name Role Phone Kris Robles M.D., M.B.A. Primary Care Provider [phone] Reason for Visit Reason Comments Pre-visit Testing Orders Encounter Details Date Type Department Care Team Description 05/16/2021 Clinical Department of Lorene Juares Pre-visit Testing Communication Urology in A, RESIDENTIAL CARE FACILITY MANAGER, C.N.P. Orders [place], [address] [place], [place] [address] [address] [place], [place] [phone] (Work) [phone] Social History Tobacco Use Types Packs/Day Years Used Date Smoking Tobacco: Never Smokeless Tobacco: Never Alcohol Use Standard Drinks/Week Comments Yes 6 (1 standard drink = 0.6 oz pure alcoho l) Alcohol Habits Answer Date Recorded How often do you have a drink containing 4 or more times a w [place] 02/05/2022 alcohol? How many drinks containing alcohol [...] get together with friends Three times a maike k 02/05/2022 or relatives? How often do you attend nondenominational or More than 4 times per year 04/15/2021 temple services? Do you belong to any clubs or Yes 02/05/2022 organizations such as nondenominational groups, unions, fraternal or athletic groups, or [...] place to sleep or slept in a retirement (including now)? Education Answer Date Recorded What is the highest level of school Master's degree (e.g., M A, MS, 03/28/2019 you have completed or the highest Doreen, MEd, CRIMP SETTER, EMELYN) degree you have received? Sex Assigned at Date Recorded Male 03/27/2018 8:35 PM CDT documented as of this encounter Miscellaneous Notes Telephone Encounter - Nan Hall R.N. - 05/20/2021 1:35 PM CDT Patient notified of response message.Verbalized understanding. Telephone Encounter - Lorene Juares APRN, C.N.P. - 05/20/2021 1:15 PM CDT Antibiotics were sent to his pharmacy as was discussed at his appointment. [place] does some of their biopsy procedure a bit differently than we do here in the Health System, he should contact [facility] for questions about biopsy. Telephone Encounter - Lyn Navarro - 05/20/2021 1:09 PM CDT Patient called with many questions. He has a BX scheduled in [place] on 05/23 and he does not have antibiotics to take prior and has many questions about the procedure. Please contact the patient. Thank you Telephone Encounter - Lorene Juares APRN, C.N.P. - 05/16/2021 4:46 PM CDT UA/UC has been ordered. Telephone Encounter - Cari Smiley - 05/16/2021 3:34 PM CDT We need a UA/UC; patient would like these scheduled in [place]. Patient schedule transperineal bx in [place] for next Wednesday05/22/2021. Patient had questions regarding taking his baby aspirin, the antibiotic mentioned in the previsit instructions, and how he would receive his results from the bx. Thank you. documented in this encounter Plan of Treatment Upcoming Encounters Date Type Specialty Care Team Description 07/22/2022 Office Visit Urology Alexy Yuan M .D. [address] [place] [address] [phone] (Meir cronin) 07/22/2022 Appointment Radiation Oncology Sun Hope M.D., Ph.D. [address] [place] [address] [phone] (Meir cronin) documented as of this encounter Results (ABNORMAL) Urinalysis with Microscopic: [...] 8.0 05/20/2021 11:47 AM CDT FB60 Specific [place] 1.025 1.001 - 1.035 05/20/2021 11:47 AM [...] AM CDT 11:37 AM CDT Lorene Juares APRN C.N.P. LAB URINE ORDERABLES Performing Organization Address City/State/ZIP Code Phon e Number [facility]- [address] [place] [address] [facility] [address]60 [place] [address] System in [place] [address] (ABNORMAL) Bacterial Culture, Aerobic + Susc, Urine (05/20/2021 11:32 AM CDT) [facility] Method Time Signature Urine Culture Organism 05/21/2021 MKTO present 11:56 AM CDT <10,000 cfu/mL (A) Specimen Anatomical Collection Method Collection Time Receive d Time (Source) Location / / Volume Laterality Urine (Urine, 05/20/2021 11:32 05/20/2021 2:19 Midstream) AM CDT PM CDT Comment: Specimen Source Site: Urine Lorene Juares APRN, C.N.P. LAB MICROBIOLOGY - GENE RAL ORDERABLES Performing Organization Address City/State/[facility] Code Phon e Number [facility]- [address] [place] [address] [place] [address] System [address] documented in this encounter Visit Diagnoses Diagnosis Elevated Prostate-Specific Antigen - [facility] documented in this encounter Care Teams Healthcare Architect Relationship Specialty Start Date End Date Kris Robles M.D., M.B.A. PCP - General Internal Medicine 01/15/21 02/25/[address] [phone] documented as of this encounter
--- OUTSIDE RECORDS SUMMARY | 2022-07-07 11:58 | XMS_ITS | Encounter Summary ---
:1945 Author Organization [facility] Address [address] [place] [address] Care Team Providers Name Role Phone Kris Robles M.D., M.B.A. Primary Care Provider [phone] Encounter Details Date Type Department Care Team Description 04/21/2021 Clinical Communication Department of Lorene Juares Internal Medicine in [place], [place] [address] [place] [phone] Social History Tobacco Use Types Packs/Day Years Used Date Smoking Tobacco: Never Smokeless Tobacco: Never Alcohol Use Standard Drinks/Week Comments Yes 6 (1 standard drink = 0.6 oz pure alcoho l) Alcohol Habits Answer Date Recorded How often do you have a drink containing 4 or more times a w [place] 02/05/2022 alcohol? How many drinks containing alcohol [...] More than 4 times per year 04/15/2021 mormonism services? Do you belong to any clubs [...] have completed or the highest Doreen, MEd, SUPERVISOR INSPECTING, EMELYN) degree you have received? Sex Assigned at Date Recorded Male 03/27/2018 8:35 PM CDT documented as of this encounter Miscellaneous Notes Telephone Encounter - Izzy Ray R.N. - 04/21/2021 2:19 PM CDT Patient was called back. Patient had a lot of questions in regards to elevated PSA, plan and if needs to be seen sooner-including a video visit. Patient was briefly explained to on some possibilities of elevated PSA such as UTI, BPH or prostatitis. Patient inquired about a sooner appointment and was informed needs to be in clinic visit in whichprovider will do further assessment and explanation of reasons and what his plan would entail. Patient further asked questions and patient was informed Provider Blanquita briefly reviewed his consult reason and ok to wait until current scheduled time on 05/08/21. Patient is also going to be out of town for 2 weeks which would be in between this Wednesday and the . He did states doesn't necessarily need to be gone for 2 weeks as he was planning on going to his house in [place] but had limited availability the days leading up to his initial departure date. Patient inquired if it's cancer and time is of essence, I don't want to have to wait. Patient informed again, his choice about [facility] and if it were per say cancer, won't know that answer at initial visit. Patient states is anxious about the elevation and mentioned [place]. Patient informed if he would rather have consult in [place], unknown timeframe of them scheduling and PCP would need to put in referral. Patient informed his plan may include several visits, further testing and may not get all the answers at his first visit. Possibilities may include follow up, MRI, prostate biopsy or other options thatprovider will inform him his options on his situation. Patient verbalized understanding. Telephone Encounter - Jennifer Toure - 04/21/2021 10:06 AM CDT Patient is scheduled with Dr. Garrido May 08. Has elevated PSA level and has some concerns and questions, and would like a call back please. [phone]. documented in this encounter Plan of Treatment Upcoming Encounters Date Type Specialty Care Team Description 07/22/2022 Office Visit Urology Alexy Yuan M .D. [address] [place], [place] [phone] (Meir cronin) 07/22/2022 Appointment Radiation Oncology Sun Hope M.D., Ph.D. [address] [place], [place] [phone] (Meir cronin) documented as of this encounter Visit Diagnoses Not on filedocumented in this encounter Care Teams Field Artillery Targeting Technician Relationship Specialty Start Date End Date Kris Robles M.D., M.B.A. PCP - General Internal Medicine 01/15/21 02/25/22 [address] [place] [address] documented as of this encounter
--- OUTSIDE RECORDS SUMMARY | 2022-07-07 11:58 | XMS_ITS | Encounter Summary ---
:1945 Author Organization [facility] Address [address] [place] [address] Care Team Providers Name Role Phone Kris Robles M.D., M.B.A. Primary Care Provider [phone] Encounter Details Date Type Department Care Team Description 04/17/2021 Clinical Communication Department of Internal Sandoval Davalos , Medicine in Kris Butts M.D.[place], [place] M.B.A. [address] [place] [address] [place], [place] [phone] Social History Tobacco Use Types Packs/Day [...] More than 4 times per year 04/15/2021 adventism services? Do you belong to any clubs [...] have completed or the highest Doreen, MEd, HOSPITAL CHIEF EXECUTIVE OFFICER, EMELYN) degree you have received? Sex Assigned at Date Recorded Male 03/27/2018 8:35 PM CDT documented as of this encounter Miscellaneous Notes Telephone Encounter - Kris Robles M.D., M.B.A. - 04/17/2021 11:18 AM CDT Jana Paulson, this patient had a large kidney cyst. Any recommendations on follow up? Do you want to see in person? Thanks Kris documented in this encounter Plan of Treatment Upcoming Encounters Date Type Specialty Care Team Description 07/22/2022 Office Visit Urology Alexy Yuan M .D. [address] [place], [place] [phone] (Meir cronin) 07/22/2022 Appointment Radiation Oncology Sun Hope M.D., Ph.D. [address] [place], [place] 55 [phone] (Meir cronin) documented as of this encounter Visit Diagnoses Not on filedocumented in this encounter Care Teams Finish Photographer Relationship Specialty Start Date End Date Kris Robles M.D., M.B.A. PCP - General Internal Medicine 01/15/21 02/25/[address] [phone] documented as of this encounter
--- OUTSIDE RECORDS SUMMARY | 2022-07-07 11:58 | XMS_ITS | Encounter Summary ---
:1945 Author Organization [facility] Address [address] [place] [address] Care Team Providers Name Role Phone Kris Robles M.D., M.B.A. Primary Care Provider [phone] Encounter Details Date Type Department Care Team Description 04/21/2021 Hospital Encounter Department of Sandoval Davalos, [facility] Laboratory Medicine Kris Prostate -Specific in Michael Foreman, M.B.A. [address] [place] [phone] Social History Tobacco Use Types Packs/Day Years Used Date Smoking Tobacco: Never Smokeless Tobacco: Never Alcohol Use Standard Drinks/Week Comments Yes 6 (1 standard drink = 0.6 oz pure alcoho l) Alcohol Habits Answer Date Recorded How often do you have a drink containing 4 or more times a w [place] 02/05/2022 alcohol? How many drinks containing alcohol [...] or relatives? How often do you attend mormon or More than 4 times per year 04/15/2021 pentecostalism services? Do you belong to any clubs or Yes 02/05/2022 organizations such as mormon groups, unions, fraternal or athletic groups, or [...] have completed or the highest Doreen, MEd, FOOD SERVICES COORDINATOR, EMELYN) degree you have received? Sex [...] Visit Urology Alexy Yuan M .D. [address] [place] [address] [phone] (Wo rk) 07/22/2022 Appointment Radiation Oncology Sun Hope M.D., Ph.D. [address] [place] [address] [phone] (Wo rk) documented as of this encounter Procedures Procedure Name Priority Date/Time Associated Diagnosis Comme nts PROSTATE-SPECIFIC Routine 04/21/2021 9:48 AM Elevated Resu lts for this AG (PSA) CDT Prostate-Specific procedure are in DIAGNOSTIC, S Antigen the results section. documented in this encounter Results (ABNORMAL) PSA (Prostate-Specific Antigen), Diagnostic (04/21/2021 9:48 AM CDT) P athologist Signature Prostate-Speci 9.9 (H) <=6.5 04/21/2021 OWAT fic Ag ng/mL 2:22 PM CDT Comment: Biotin has been identified by the erika lewis as a potential interfering substance. ??Higher concentr ations of biotin may be found in multivitamins, hair/nail supple ments, and workout supplements. ??If the result does not ma [facility] clinical observations, repeat testing after patient refrains fr om the use of supplements for at least 12 hours. ----ADDITIONAL INFORMATION---- The testing method is an [...] Location / / Volume Laterality Blood (Blood, 04/21/2021 9:48 AM 04/21/20 1:27 Venous) CDT PM CDT Kris Robles M.D., M.B.A. LAB BLOOD ADD-ON Performing Organization Address City/State/ZIP Code Phon e Number [facility]- [address] [place] [address] [place] [address] System in [place] [address] [place] [address] documented in this encounter Visit Diagnoses Diagnosis Elevated Prostate-Specific Antigen documented in this encounter Care Teams Child Development Specialist Relationship Specialty Start Date End Date Kris Robles M.D., M.B.A. PCP - General Internal Medicine 01/15/21 02/25/[address] [place] [phone] documented as of this encounter
--- OUTSIDE RECORDS SUMMARY | 2022-07-07 11:58 | XMS_ITS | Encounter Summary ---
:1945 Author Organization [facility] Address [address] [place] [address] Care Team Providers Name Role Phone Kris Robles M.D., M.B.A. Primary Care Provider [phone] Encounter Details Date Type Department Care Team Description 06/16/2021 Clinical Communication Department of Internal [facility]oval Davalos , Medicine in Kris Butts M.D.[place], [place] M.B.A. [address] [place] [address] [place], [place] [phone] Social History Tobacco Use Types Packs/Day Years Used Date Smoking Tobacco: Never Smokeless Tobacco: Never Alcohol Use Standard Drinks/Week Comments Yes 6 (1 standard drink = 0.6 oz pure alcoho l) Alcohol Habits Answer Date Recorded How often do you have a drink containing 4 or more times a w [place] 02/05/2022 alcohol? How many drinks containing alcohol [...] or relatives? How often do you attend zoroastrian or More than 4 times per year 04/15/2021 holiness services? Do you belong to any clubs or Yes 02/05/2022 organizations such as zoroastrian groups, unions, fraternal or athletic groups, or [...] have completed or the highest Doreen, MEd, ENVIRONMENTAL WEB CRAWLER, EMELYN) degree you have received? Sex Assigned at Date Recorded Male 03/27/2018 8:35 PM CDT documented as of this encounter Miscellaneous Notes Telephone Encounter - Cecy Vidal - 06/16/2021 9:49 AM CDT documented in this encounter Plan of Treatment Upcoming Encounters Date Type Specialty Care Team Description 07/22/2022 Office Visit Urology Alexy Yuan M .D. 200 [place], [place] [phone] (Meir cronin) 07/22/2022 Appointment Radiation Oncology Sun Hope M.D., Ph.D. 200 [place], [place] [phone] (Meir cronin) documented as of this encounter Visit Diagnoses Not on filedocumented in this encounter Care Teams Changeover Operator Relationship Specialty Start Date End Date Kris Robles M.D., M.B.A. PCP - General Internal Medicine 01/15/21 02/25/[address] [place] [address] documented as of this encounter
--- OUTSIDE RECORDS SUMMARY | 2022-07-07 11:58 | XMS_ITS | Encounter Summary ---
:1945 Author Organization [facility] Address [address] [place] [address] Care Team Providers Name Role Phone Kris Robles M.D., M.B.A. Primary Care Provider [phone] Reason for Referral Outpatient (Routine) - Closed Specialty Diagnoses / Procedures Referred By Contact Bita dey To Contact Orthopedic Surgery Diagnoses Pain Hip Left Keyanna Dietrich M.D. [facility] [address] [place] [address] Referral ID Status Reason Start Date Expiration Date Visits Requ ested Visits Authorized [id number] Closed 06/24/2021 06/24/2022 1 1 Reason for Visit Reason Comments Hip Pain follow up, requesting referr al to get injection Appointment Request (Routine) - Closed Specialty Diagnoses / Procedures Referred By Contact Bita dey To Contact Community Internal Medicine Referral ID Status Reason Start Date Expiration Date Visits Requ ested Visits Authorized [id number] Closed 06/16/2021 06/16/2022 1 1 Encounter Details Date Type Department Care Team Description 06/24/2021 Office Visit Department of Keyanna Dietrich Pain Hip Lef t (Primary Dx); Internal Medicine augusta Alanis M.D. Arthroplasty Total Hip Replacement Statu s Post Left; [place], [place] [address] Atherosclerotic Heart Disease Of [place] Coronary Artery Without Angina Pectoris [address] [place] [address] [phone] Social History Tobacco Use Types Packs/Day Years Used Date Smoking Tobacco: Never Smokeless Tobacco: Never Alcohol Use Standard Drinks/Week Comments Yes 6 (1 standard drink = 0.6 oz pure alcoho l) Alcohol Habits Answer Date Recorded How often do you have a drink containing 4 or more times a w hopi 02/05/2022 alcohol? How many drinks containing alcohol [...] or relatives? How often do you attend jain or More than 4 times per year 04/15/2021 christianity services? Do you belong to any clubs or Yes 02/05/2022 organizations such as jain groups, unions, fraternal or athletic groups, or [...] place to sleep or slept in a care home (including now)? Education Answer Date Recorded What is the highest level of school Master's degree (e.g., M A, MS, 03/28/2019 you have completed or the highest Doreen, MEd, ANALYTICAL LABORATORY TECHNICIAN, EMELYN) degree you have received? Sex Assigned at Date Recorded Male 03/27/2018 8:35 PM CDT documented as of this encounter Last Filed Vital Signs Vital Sign Reading Time Taken Comments Blood Pressure 138/81 06/24/2021 8:09 AM CDT Pulse 74 06/24/2021 8:09 AM CDT Temperature 36.4 ??C (97.6 ??F) 06/24/2021 7:58 AM CDT Respiratory Rate 20 06/24/2021 7:58 AM CDT Oxygen Saturation - - Inhaled Oxygen Concentration - - Weight 84.8 kg (186 lb 15.2 oz) 06/24/2021 7:58 AM CDT Height - - Body Mass Index 26.07 05/12/2021 7:37 PM CDT documented in this encounter Patient Instructions Patient InstructionsKeyanna Dietrich M.D. - 06/24/2021 8:15 AM CDT I would like you to try switching to naproxen (Aleve) for the pain. This may be a little safer for your heart. You can take up to 2 Aleve tablets at a time 3 times a day. If you can get by with less, that would be ideal. I would like you to try working on low-impact exercises such as water aerobics or biking. Please see the orthopedic provider next week as scheduled and I hope mia will benefit from the trochanteric bursa injection. documented in this encounter Progress Notes Keyanna Dietrich M.D. - 06/24/2021 8:15 AM CDT SUBJECTIVE Mr. Sheldon is a 75 y.o. male who presents for evaluation of Hip Pain (follow up, requesting referralto get injection). HISTORY OF PRESENT ILLNESS Charles is a patient of Dr. Robles and is seen today in his absence. His medical history is significant for coronary artery disease, hyperlipidemia and hypertension. [place]. He recovered well from surgery and started walking 3-4 miles a day several weeks after surgery. He then developed pain in the left hip which was located in the lateral hip as well as in the groin region. He eventually saw an orthopedic provider in [place] in May 2020 to evaluate this and that note is reviewed. He underwent an x-ray of the hip at that time which showed that the arthroplasty appeared to be intact. His inflammatory markers were normal and there was no sign of infection. The provider did not feel that the pain was related to the prosthetic joint. There was concern that the pain could be related to a back issue or due to trochanteric bursitis. He wasadvised to perform low back exercises including stretching and core strengthening. The pain gradually improved and then worsened again over the winter. He saw the orthopedic provider again in January of 2021 and he was diagnosed with left hip trochanteric bursitis as well as left hip iliopsoas bursitis. They discussed the possibility of performing a steroid injection verses undergoing physical therapy. The patient preferred to defer a steroid injection and instead went to physical therapy. He also had an MRI of the lumbar spine and [facility] a [facility]. He was diagnosed with lumbar spondylosis but there was no sign of radiculopathy. The provider ordered an EMG but the patient declined topursue this. The pain persisted despite physical therapy and so he saw Dr. Kapoor in [place] and was prescribed a 5 day course of prednisone as well as using diclofenac gel. The pain resolved with the course ofprednisone, and the patient states he took it differently than it was prescribed. Since then the pain has recurred and is bothersome. It interferes with his quality of life. He has noticed exacerbations of pain when he is on the golf course. He likes to walk for exercise and has not been able to do sobecause of the pain. He has not tried using a stationary bike or performing any type of water exercise. He is currently taking 2-4 ibuprofen tablets per day and this does help alleviate the pain. He has a history of coronary disease and underwent PTCA with stenting of the RCA and LAD in 2017. Heis aware that NSAIDS can increase the risk of myocardial infarction. He has talked to 2 friends who are retired orthopedic surgeons and they both question whether his pain could be coming from his lumbar spine. He would like to pursue a trochanteric bursa injection to see if that alleviates the pain. If it does not, then he believes he may need to pursue a spinal injection. He recently had an elevated PSA and underwent an MR of the prostate. This report is reviewed. This did not show any suspicious lymph nodes. There were no suspicious bony lesions. There were degenerative changes of the spine and right hip joint as well as L4-5 interspace narrowing. The patient's allergies, current medications, problem list, and social history were reviewed and updated as appropriate. OBJECTIVE Vitals: 06/24/21 0809 BP: 138/81 Pulse: 74 Resp: Temp: BMI Readings from Last 3 Encounters: 06/24/21 26.07 kg/m?? 06/06/21 26.29 kg/m?? 05/12/21 25.64 kg/m?? Wt Readings from Last 3 Encounters: 06/24/21 84.8 kg 06/06/21 85.5 kg 04/17/21 83.4 kg PHYSICAL EXAM Physical Exam GENERAL: Alert, adult male with normal speech, in no acute distress. SKIN: Warm and dry. No jaundice. EXTREMITIES: Warm. There is no lower extremity edema. There is discomfort to palpation in the regionof the left greater trochanter. He has intact flexion at the hip joint but has limited external and internal rotation secondary to discomfort. Internal rotation is more limited than external rotation and this motion causes discomfort in the left lateral hip. GAIT: Antalgic. NEURO: Face symmetric and he moves all 4 extremities equally, no focal deficits. 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 They do not believe that the pain is related to a problem with his prosthetic joint. The differential diagnosis includes pain secondary to trochanteric bursitis, a lumbar radiculopathy or muscular strain. He would like to pursue a trochanteric bursa injection and will be referred to an astronaut mission specialist to pursue this. If this is ineffective, then could consider referral for aleft-sided epidural L4-5 injection. In the meantime, recommended that he switch from ibuprofen to naproxen, as this may have slightly reduced cardiac risk. He may continue to ice the area. He should work on low-impact exercises such as riding a stationary bike or performing swimming/water aerobics. Hewill continue to work on his physical therapy exercises and should stop to get out and stretch/walk every 2 hours when he is on a long car ride. #3 Atherosclerotic Heart Disease Of [place] Coronary Artery Without Angina Pectoris He appears to be doing well and is aware that NSAIDs can increase cardiac risk. He was advised that naproxen appears to have a slightly lower risk than ibuprofen and he will switched to taking naproxenfor the pain. He will try to take the lowest dose possible to control his pain. I spent a total of 47 minutes on the day of the visit. Keyanna Dietrich M.D. documented in this encounter Plan of Treatment Upcoming Encounters Date Type Specialty Care Team Description 07/22/2022 Office Visit Urology Alexy Yuan M .D. [address] [place], [place] [phone] (Wo rk) 07/22/2022 Appointment Radiation Oncology Sun Hope M.D., Ph.D. [address] [place] [phone] (Wo rk) Scheduled Referrals Name Type Priority Associated Order Schedule Diagnoses Orthopedic Surgery - Outpatient Referral Routine Pain Hip Left Expected: Hip non surgical 06/30/2021 consult (clinic) (Approximat e), Expires: 06/24/2024 documented as of this encounter Visit Diagnoses Diagnosis Pain Hip Left - Primary Arthroplasty Total Hip Replacement Statu s Post Left Atherosclerotic Heart Disease Of [place] Coronary Artery Without Angina Pectoris documented in this encounter Care Teams Tong Carrier Relationship Specialty Start Date End Date Kris Robles M.D., M.B.A. PCP - General Internal Medicine 01/15/21 02/25/[address] [address] documented as of this encounter
--- OUTSIDE RECORDS SUMMARY | 2022-07-07 11:58 | XMS_ITS | Encounter Summary ---
:1945 Author Organization [facility] Address [address] [place] [address] Care Team Providers Name Role Phone Kris Robles M.D., M.B.A. Primary Care Provider [phone] Encounter Details Date Type Department Care Team Description 06/13/2021 Clinical Communication Department of John Encarnacion, Orthopedic Surgery in [place], [place] [address] [facility] [address] [place] [address] [phone] Social History Tobacco Use Types Packs/Day Years [...] or relatives? How often do you attend protestant or More than 4 times per year 04/15/2021 jewish services? Do you belong to any clubs or Yes 02/05/2022 organizations such as protestant groups, unions, fraternal or athletic groups, or [...] have completed or the highest Doreen, MEd, CLUTCH OPERATOR, EMELYN) degree you have received? Sex Assigned at Date Recorded Male 03/27/2018 8:35 PM CDT documented as of this encounter Miscellaneous Notes Telephone Encounter - Marcellus Jean M.D. - 06/13/2021 2:12 PM CDT I called the patient regarding his recent message. Did not sweet pickle maker the phone. I left a voicemail stating that we would be happy to see the patient at the clinic again in order to re-evaluate his pain and proceed with a corticosteroid injection of his left GT bursa if needed. Telephone Encounter - Rena Hamilton - 06/13/2021 1:08 PM CDT Who is calling: Patient Release of information on file: Yes Best call back number: [phone] Okay to leave detailed voicemail message on number listed. Reason for call: Requesting repeat injection; Type of Medication: Steroid injection Patient wants toget an injection, but he isn't sure if a steroid is the right way to go. He thinks the hip joint isn't that needs to be injected. He thinks he needs the bursa sack injected. He has been OTC antiinflammatories. He is asking for a left hip injection. Physician: Couch Action: Message routed to MD Team documented in this encounter Plan of Treatment Upcoming Encounters Date Type Specialty Care Team Description 07/22/2022 Office Visit Urology Alexy Yuan M .D. [address] [place], [place] [phone] (Wo rk) 07/22/2022 Appointment Radiation Oncology Sun Hope M.D., Ph.D. [address] [place], [place] [phone] (Meir rk) documented as of this encounter Visit Diagnoses Not on filedocumented in this encounter Care Teams Resource Specialist Relationship Specialty Start Date End Date Kris Robles M.D., M.B.A. PCP - General Internal Medicine 01/15/21 02/25/[address] [address] documented as of this encounter
--- OUTSIDE RECORDS SUMMARY | 2022-07-07 11:58 | XMS_ITS | Encounter Summary ---
:1945 Author Organization [facility] Address [address] [place] [address] Care Team Providers Name Role Phone Kris Robles M.D., M.B.A. Primary Care Provider [phone] Reason for Visit Reason Comments Results Encounter Details Date Type Department Care Team Description 04/22/2021 Clinical Communication Department of Internal Sandoval Davalos , Results Medicine in [place] M.D.[place], [place] M.B.A. [address] [place] [address] [place], [place] [phone] Social History Tobacco Use Types Packs/Day Years Used Date Smoking Tobacco: Never Smokeless Tobacco: Never Alcohol Use Standard Drinks/Week Comments Yes 6 (1 standard drink = 0.6 oz pure alcoho l) Alcohol Habits Answer Date Recorded How often do you have a drink containing 4 or more times a w [place] 02/05/2022 alcohol? How many drinks containing alcohol [...] or relatives? How often do you attend adventist or More than 4 times per year 04/15/2021 sikhism services? Do you belong to any clubs or Yes 02/05/2022 organizations such as adventist groups, unions, fraternal or athletic groups, or [...] have completed or the highest Doreen, MEd, DISABILITY SPECIALIST, EMELYN) degree you have received? Sex Assigned at Date Recorded Male 03/27/2018 8:35 PM CDT documented as of this encounter Miscellaneous Notes Telephone Encounter - Erna Doyle C.M.A. - 04/22/2021 3:56 PM CDT Left message for patient to return call to clinic. Does the patient need to speak to nursing? no Action needed: Share information as Dr. Robles notes below from result note: PSA sill elevated. Patient should follow with urology clinic. Patient is already scheduled 05/08/21. documented in this encounter Plan of Treatment Upcoming Encounters Date Type Specialty Care Team Description 07/22/2022 Office Visit Urology Alexy Yuan M .D. [address] [place] [phone] (Meir cronin) 07/22/2022 Appointment Radiation Oncology Sun Hope M.D., Ph.D. [address] [place], [place] [phone] (Wo rk) documented as of this encounter Visit Diagnoses Not on filedocumented in this encounter Care Teams Insulation Cutter Relationship Specialty Start Date End Date Kris Robles M.D., M.B.A. PCP - General Internal Medicine 01/15/21 02/25/[address] [address] documented as of this encounter
--- OUTSIDE RECORDS SUMMARY | 2022-07-07 11:58 | XMS_ITS | Encounter Summary ---
:1945 Author Organization [facility] Address [address] [place] [address] Care Team Providers Name Role Phone Kris Robles M.D., M.B.A. Primary Care Provider [phone] Reason for Referral Outpatient (Routine) - Closed Specialty Diagnoses / Procedures Referred By Contact Refer red To Contact Urology Lorene Juares APRN, C.N.P. [facility] Region [address] [place] [address] Referral ID Status Reason Start Date Expiration Date Visits Requ ested Visits Authorized [id number] Closed 05/15/2021 05/15/2022 1 1 utpatient (Routine) - Closed Specialty Diagnoses / Procedures Referred By Contact Refer red To Contact Diagnoses Elevated Prostate-Specific Antigen Cancer Prostate Family History Lorene Juares APRN [facility] Region Procedures URO Biopsy - Prostate C.N.P. [address] [place] [phone] Referral ID Status Reason Start Date Expiration Date Visits Requ ested Visits Authorized [id number] Closed 05/15/2021 05/15/2022 1 1 Reason for Visit Outpatient (Routine) - Closed Specialty Diagnoses / Procedures Referred By Contact Refer red To Contact Urology Koffi Garrido M.D. [facility] [address] [place] [address] Referral ID Status Reason Start Date Expiration Date Visits Requ ested Visits Authorized [id number] Closed 05/08/2021 05/08/2022 1 1 Encounter Details Date Type Department Care Team Description 05/14/2021 Telemedicine Department of Urology Lorene Juares, Elevated Prostate-Specific Antigen (Primary Dx); in [place] C.NJulianPJulian Cancer Prostate Family History [place] [address] [place] [phone] Social History Tobacco Use Types Packs/Day Years Used Date Smoking Tobacco: Never Smokeless Tobacco: Never Alcohol Use Standard Drinks/Week Comments Yes 6 (1 standard drink = 0.6 oz pure alcoho l) Alcohol Habits Answer Date Recorded How often do you have a drink containing 4 or more times a w [place] 02/05/2022 alcohol? How many drinks containing alcohol [...] or relatives? How often do you attend jehovah's witness or More than 4 times per year 04/15/2021 lutheran services? Do you belong to any clubs or Yes 02/05/2022 organizations such as jehovah's witness groups, unions, fraternal or athletic groups, or [...] have completed or the highest Doreen, MEd, GAS METER MECHANIC, EMELYN) degree you have received? Sex Assigned at Date Recorded Male 03/27/2018 8:35 PM CDT documented as of this encounter Progress Notes Lorene Juares, DAMIAN, C.N.P. - 05/14/2021 10:00 AM CDT SUBJECTIVE CHIEF COMPLAINT/REASON FOR VISIT Elevated PSA HISTORY OF PRESENT ILLNESS Bill is a 75 year old male who was seen for a video visit to discuss results from recent prostate MRI. He has elevated PSA level and family history of prostate cancer. The following portions of the patient's history were reviewed and updated as appropriate: allergies,current medications, family history, medical history, social history, surgical history and problem list. REVIEW OF SYSTEMS Genitourinary: Negative for difficulty urinating. Stream has been slower in the last years. OBJECTIVE There were no vitals filed for this visit. DIAGNOSTIC RADIOLOGY MRI Prostate 05/12/2021 IMPRESSION: 1. Limited evaluation related to metallic artifact from left ANALIA. 2. Linear T2 hypointensities scattered in both side peripheral zone, PI-RADS 2. However, given the elevated PSA density, random biopsy may be considered. ASSESSMENT / PLAN #1 Elevated PSA #2 Family History of Prostate Cancer We had an in-depth discussion about the results from MRI. His MRI is PI-RADS 2, however prostate is not completely visualized, prostate size is measured at 35 g. Prostate size and PSA density in combination with family history of prostate cancer and elevated PSA, it is recommended that we go forward with prostate biopsy. We discussed going forward with ultrasound-guided transrectal biopsy in the clinic with Dr. Garrido. We discussed risks and benefits of procedure, he wishes to proceed. He will need enema 2 hours prior to procedure, he should also take the 1st dose of a 3 day course of antibioticsto hours prior to procedure. He wishes to have this scheduled as soon as possible, nursing staff will contact him for scheduling purposes of this. All questions are answered today. Signed by: Lorene Juares APRN, C.N.PJulian 05/14/2021 1:01 PM CDT documented in this encounter Plan of Treatment Upcoming Encounters Date Type Specialty Care Team Description 07/22/2022 Office Visit Urology Alexy Yuan M .D. [address] [place] [phone] (Wo rk) 07/22/2022 Appointment Radiation Oncology Sun Hope M.D., Ph.D. [address] [place] [phone] (Wo rk) Scheduled Referrals Name Type Priority Associated Diagnoses Order S [facility] Urology office Outpatient Referral Routine Expect ed: visit (clinic) 05/29/2021 (Approximate), Expires: 05/15/2024 documented as of this encounter Results NE BIOPSY PROSTATE NEEDLE/PUNCH, PROCEDURE PLACEHOLDER (05/30/2021 4:27 PM CDT) Specimen (Source) Anatomical Location Collection Method / Collectio n Time Received Time / Laterality Volume Narrative Iraj Kiran M.D. - 05/30/2021 4:27 PM CDT Iraj Kiran M.D. ? 05/30/2021 ??4:30 PM URO Biopsy - Prostate Date/Time: 05/30/2021 4:27 PM Performed by: Iraj Kiran M.D. Authorized by: Lorene Juares APRN, C.N.P. PROCEDURE DETAILS Setting: ??Clinic Position: ??Right lateral decubitus Biopsy option(s) include: Standard Biopsy type: transrectal Technique: ??Side-fire Antibiotics at time of procedure: yes ?? Antibiotics given: ??Oral antibiotics to hours prior to procedure, will continue postoperatively Region(s) of interest: ??None BIOPSY DETAILS ?? Systemic biopsy completed at time of pro cedure: yes ?? Biopsy location(s): ??Right base, right mid, right apex, left base, left mid and left apex ??Right base - number of biopsies: ??2 ??Left base - number of biopsies: ??2 ??Right mid - number of biopsies: ??2 ??Left mid - number of biopsies: ??2 ??Right apex - number of biopsies: ??2 ??Left apex - number of biopsies: ??2 Seminal vesicle biopsy NOT completed at time of procedure: Seminal vesicle biopsy ULTRASOUND DETAILS: Ultrasound guidance used: Image(s) not s aved. ??Prostate volume (cc): ??0 URONAV 3D image(s) were not saved. ADDITIONAL DETAILS: Known prostate cancer: no ?? History of prior negative prostate biops y: no ?? Is this the first prostate biopsy?: yes ?? CONSENT Consent obtained: verbal Consent given by: patient PRE PROCEDURE DETAILS Procedure purpose: ??Diagnostic Indications: ??Elevated PSA SEDATION / ANESTHESIA Anesthesia method: local infiltration POST PROCEDURE DETAILS Procedure completed successfully: yes ?? Complications: ??None COMMENTS Standard template ultrasound-guided yao srectal prostate biopsy. ??This was not an MRI fusion biopsy, as the MRI was incomplete due to hip implant artifact. OPERATIVE NOTE INFORMATION Specimens: Left prostate biopsy, right p rostate biopsy Drains: None Estimated blood loss: Minimal Implants: None Lorene Juares APRN, C.N.P. UROLOGY ORDERABLES documented in this encounter Visit Diagnoses Diagnosis Elevated Prostate-Specific Antigen - [facility] Cancer Prostate Family History Elevated Prostate-Specific Antigen Cancer Prostate Family History documented in this encounter Care Teams Field Marketing Coordinator Relationship Specialty Start Date End Date Kris Robles M.D., M.B.A. PCP - General Internal Medicine 01/15/21 02/25/[address] [phone] documented as of this encounter
--- OUTSIDE RECORDS SUMMARY | 2022-07-07 11:58 | XMS_ITS | Encounter Summary ---
:1945 Author Organization [facility] Address [address] [place] [address] Care Team Providers Name Role Phone Kris Robles M.D., M.B.A. Primary Care Provider Reason for Visit Appointment Request (Routine) - Closed Specialty Diagnoses / Procedures Referred By Contact Refer red To Contact Urology Diagnoses Elevated Prostate-Specific Antigen Referral ID Status Reason Start Date Expiration Date Visits Requ ested Visits Authorized [id number] Closed 05/23/2021 05/23/2022 1 1 Encounter Details Date Type Department Care Team Description 06/12/2021 Comprehensive Visit Department of Alexy Yuan Eleva ted Urology in [place].Demi Prostate-Specific [place], [place] [address] [facility] Antigen (Primary Dx) [address] [place] [phone] Social History Tobacco Use Types Packs/Day Years [...] or relatives? How often do you attend yarsani or More than 4 times per year 04/15/2021 druze services? Do you belong to any clubs or Yes 02/05/2022 organizations such as yarsani groups, unions, fraternal or athletic groups, or [...] have completed or the highest Doreen, MEd, RELAY RECORD CLERK, EMELYN) degree you have received? Sex Assigned at Date Recorded Male 03/27/2018 8:35 PM CDT documented as of this encounter Consult Notes Alexy Yuan M.D. - 06/12/2021 8:30 AM CDT CHIEF COMPLAINT: Elevated PSA HISTORY OF PRESENT ILLNESS It was a pleasure to meet with Dane Torresgutierrez Cruz for discussion of his elevated PSA. Mr. Sheldon is a 75 y.o. year old gentleman who was noted to have a PSA history of the following: April 21, 2021 9.9 April 17, 2021 10.1 April 16, 2020 4.4 March 27, 2019 4.0 March 30, 2018 3.4 The sudden rise in his PSA prompted a prostate MRI on May 12, 2021. The MRI demonstrated a 35 cc prostate with no suspicious lesions concerning for clinically significant prostate cancer Nevertheless, due to the elevated PSA they recomme a systematic transrectal ultrasound-guided Standard biopsy on May 30, 2021. Pathology of this revealed no evidence of malignancy within the prostate. Atypical small glands suspicious for but not diagnostic of malignancy were noted in the left mason prostate. He presents today for discussion of management options. In the past 2 months he has noticed increased frequency. He has had a few episodes of dysuria. No history of recurring urinary tract infections or gross hematuria. The following portions of the patient's history were reviewed and updated as appropriate: allergies,current medications, family history, medical history, social history, surgical history and problem list PAST MEDICAL HISTORY: 1. Coronary artery disease 2. Hypertension 3. Hyperlipidemia PAST SURGICAL HISTORY: 1. Left hip arthroplasty MEDICATIONS (anticoagulation, chemotherapeutics, immunotherapy, immunosuppressants): yes, 81 mg of aspirin FAMILY HISTORY: Brother had prostate cancer at age 70 SOCIAL HISTORY: , METS >4, ECOG 0; nonsmoker REVIEW OF SYSTEMS: Constitutional: No fever, fatigue, anorexia, night sweats HEENT: No vision changes or abnormal changes in smell, no headaches Resp: No shortness of breath or cough Cardio: No chest pain, palpitations GI: No abdominal pain, changes in bowel movement : See HPI MSK: No weakness, paresthesias, or joint pains, Neuro: No gait ataxia PHYSICAL EXAM: Constitutional: Oriented to person, place, and time. Appears well-developed and well-nourished. No distress. HENT: Head: Normocephalic and atraumatic. Eyes: EOM are normal. Pulmonary/Chest: Effort normal. Abdominal: Abdomen appears soft. Abdomen does not display tenderness and distention. Neurological: Alert and oriented to person, place, and time. Skin: Skin is warm and dry. Psychiatric: Has a normal mood and affect. ASSESSMENT AND PLAN: It was a pleasure to meet with Mr. Sheldon for discussion of management of his elevated PSA. And ASAPnoted on recent prostate biopsy. I reviewed with him that TORIN is not a definitive diagnosis of prostate cancer, but historically, has been considered an indicator for presence of prostate cancer such that repeat biopsy within 6 months poses a 50% probability for prostate cancer being detected. Nevertheless, this does not necessarilymean that the prostate cancer that is to be detected on subsequent biopsies very aggressive but often is Ruba 6 prostate cancer, which is a flavor of prostate cancer that we often watch. Options for management at this point would be repeat prostate biopsy in 6 months from the time of his initial biopsy versus measuring the PSA in 6 months. If the PSA continues to rise, then we would repeat a biopsy. If the PSA does not rise and stay stable or decreases, then we would defer biopsy especially given his MRI is without any evidence of suspicious lesions thus I do not have an overwhelmingconcern for the presence of clinically significant prostate cancer. He is in agreement with pursuing a mail-in PSA in 6 months. I will call him with the results of this. If the PSA continues to rise, then we will schedule a systematic transperineal prostate biopsy. If the PSA stays stable or decreases, then we will recheck PSA in another 6 months. For his urinary symptoms, specifically the frequency, we will prescribe him tamsulosin. He experienced 1 day of dysuria yesterday but this is improved today. Thus I do not suspect he has prostatitis asthe cause of his urinary symptoms or rising PSA. 50 minutes spent during consultation for [id number] counseling as well as and review of records and imaging documented in this encounter Plan of Treatment Upcoming Encounters Date Type Specialty Care Team Description 07/22/2022 Office Visit Urology Alexy Yuan M .D. [address] [place], [place] [phone] (Meir cronin) 07/22/2022 Appointment Radiation Oncology Sun Hope M.D., Ph.D. [address] [place] [phone] (Meir cronin) documented as of this encounter Results (ABNORMAL) PSA (Prostate-Specific Antigen), Diagnostic (11/10/2021 8:11 AM MARKETING ENGINEER) athologist Signature Prostate-Speci 6.6 (H) <=6.5 11/11/2021 DTL fic Ag ng/mL 3:46 PM MARKETING ENGINEER Comment: ----ADDITIONAL INFORMATION---- The testing method is [...] (Blood, 11/10/2021 8:11 AM 11/12/19 1:47 Venous) MARKETING ENGINEER PM MARKETING ENGINEER Authorizing Provider Result Krishna Yuan M.D. LAB BLOOD ADD-ON Performing Organization Address City/State/ZIP Code Phon e Number [facility] - [address] [place], [place] [address] [facility] [place] [address] Laboratories-[facility] [address] documented in this encounter Visit Diagnoses Diagnosis Elevated Prostate-Specific Antigen - [facility] documented in this encounter Care Teams Oxygen Plant Operator Relationship Specialty Start Date End Date Kris Robles M.D., M.B.A. PCP - General Internal Medicine 01/15/21 02/25/[address] [phone] documented as of this encounter
--- OUTSIDE RECORDS SUMMARY | 2022-07-07 11:58 | XMS_ITS | Encounter Summary ---
:1945 Author Organization [facility] Address [address] [place] [address] Care Team Providers Name Role Phone Kris Robles M.D., M.B.A. Primary Care Provider [phone] Encounter Details Date Type Department Care Team Description 04/17/2021 Clinical Communication Department of Internal Sandoval Davalos , Medicine in Kris Butts M.D.[place], [place] M.B.A. [address] [place] [address] [place], [place] [phone] Social History Tobacco Use Types Packs/Day Years Used Date Smoking Tobacco: Never Smokeless Tobacco: Never Alcohol Use Standard Drinks/Week Comments Yes 6 (1 standard drink = 0.6 oz pure alcoho l) Alcohol Habits Answer Date Recorded How often do you have a drink containing 4 or more times a w [place] 02/05/2022 alcohol? How many drinks containing alcohol [...] More than 4 times per year 04/15/2021 gnosticism services? Do you belong to any clubs [...] have completed or the highest Doreen, MEd, JAWBONE BREAKER, EMELYN) degree you have received? Sex Assigned at Date Recorded Male 03/27/2018 8:35 PM CDT documented as of this encounter Miscellaneous Notes Telephone Encounter - Erna Doyle C.MAugusto - 04/18/2021 1:37 PM CDT SUBJECTIVE CHIEF COMPLAINT / REASON FOR CALL No chief complaint on file. Information Discussed Exactly as Dr. Robles stated in this note. PLAN Disposition/Recommendation: Will call back if developing symptoms Information/Education: patient/caller able to teach back Caller agreeable to plan of care: yes The following references were used: provider Dr. Robles Telephone Encounter - Kris Robles M.D., M.B.A. - 04/17/2021 5:22 PM CDT Please notify the patient with the Urology recommendations regarding his kidney cyst- If patient is not having any symptoms from the cyst such as pain or pressure, no treatment is needed. If patient is having pressure, pain, fullness etc, he can be referred to [facility]. Thank you Telephone Encounter - Lorene Juares APRN, C.N.P. - 04/17/2021 11:43 AM CDT Thank you for the note. If he is not having any symptoms from the cyst such as pain or pressure, no treatment is needed. If he is having pressure, pain, fullness etc, he can be referred to [facility] and they would either drain the cyst or surgically remove the cyst. We are unable toaspirate large cysts like that here in [place]. Lorene documented in this encounter Plan of Treatment Upcoming Encounters Date Type Specialty Care Team Description 07/22/2022 Office Visit Urology Alexy Yuan M .D. [address] [place], [place] [phone] (Wo rk) 07/22/2022 Appointment Radiation Oncology Sun Hope M.D., Ph.D. [address] [place], [place] [phone] (Wo rk) documented as of this encounter Visit Diagnoses Not on filedocumented in this encounter Care Teams Vision Care Associate Relationship Specialty Start Date End Date Kris Robles M.D., M.B.A. PCP - General Internal Medicine 01/15/21 02/25/22 [address] [place] [phone] documented as of this encounter
--- OUTSIDE RECORDS SUMMARY | 2022-07-07 11:58 | XMS_ITS | Encounter Summary ---
:1945 Author Organization [facility] Address [address] [place] [address] Care Team Providers Name Role Phone Kris Robles M.D., M.B.A. Primary Care Provider [phone] Reason for Visit Reason Comments FU after tests Encounter Details Date Type Department Care Team Description 05/08/2021 Clinical Communication Department of Urology Koffi Garrido, FU after tests in Michael Butts [place] [address] [place] [phone] Social History Tobacco Use Types Packs/Day Years Used Date Smoking Tobacco: Never Smokeless Tobacco: Never Alcohol Use Standard Drinks/Week Comments Yes 6 (1 standard drink = 0.6 oz pure alcoho l) Alcohol Habits Answer Date Recorded How often do you have a drink containing 4 or more times a w [place] 02/05/2022 alcohol? How many drinks containing alcohol [...] More than 4 times per year 04/15/2021 buddhism services? Do you belong to any clubs [...] place to sleep or slept in a [facility] (including now)? Education Answer Date Recorded What is the highest level of school Master's degree (e.g., M A, MS, 03/28/2019 you have completed or the highest Doreen, MEd, CAGE TENDER, EMELYN) degree you have received? Sex Assigned at Date Recorded Male 03/27/2018 8:35 PM CDT documented as of this encounter Miscellaneous Notes Telephone Encounter - Izzy Ray R.N. - 05/12/2021 8:33 AM CDT Patient has an upcoming urology appointment 05/14/21. Telephone Encounter - Tasneem Penny - 05/08/2021 2:46 PM CDT Good Afternoon, Can you please take a look at Dr. Garrido schedule. Pt. Is being seen in [place] on Wednesday for MRI and Dr. Garrido wanted to see him after, he does not have any openings until end of May. Pt.Was hoping to see him before Dr. Garrido went on Vacation. Please advise. Thank you documented in this encounter Plan of Treatment Upcoming Encounters Date Type Specialty Care Team Description 07/22/2022 Office Visit Urology Alexy Yuan M .D. [address] [place], [place] [phone] (Wo rk) 07/22/2022 Appointment Radiation Oncology Sun Hope M.D., Ph.D. [address] [place], [place] [phone] (Wo rk) documented as of this encounter Visit Diagnoses Not on filedocumented in this encounter Care Teams Factory Maintenance Manager Relationship Specialty Start Date End Date Kris Robles M.D., M.B.A. PCP - General Internal Medicine 01/15/21 02/25/[address] [phone] documented as of this encounter
--- OUTSIDE RECORDS SUMMARY | 2022-07-07 11:58 | XMS_ITS | Encounter Summary ---
:1945 Author Organization [facility] Address [address] [place] [address] Care Team Providers Name Role Phone Kris Robles M.D., M.B.A. Primary Care Provider [phone] Encounter Details Date Type Department Care Team Description 04/17/2021 Hospital Encounter Department of Susy Robles Examination Laboratory Medicine Kris Prostate Cancer in Michael Butts, M.B.A. [place] [address] [facility] [place] [phone] Social History Tobacco Use Types Packs/Day Years Used Date Smoking Tobacco: Never Smokeless Tobacco: Never Alcohol Use Standard Drinks/Week Comments Yes 6 (1 standard drink = 0.6 oz pure alcoho l) Alcohol Habits Answer Date Recorded How often do you have a drink containing 4 or more times a w [place] 02/05/2022 alcohol? How many drinks containing alcohol [...] have completed or the highest Doreen, MEd, NEW AUTOS DELIVERY DRIVER, EMELYN) degree you have received? Sex Assigned [...] Visit Urology Alexy Yuan M .D. [address] [place] [phone] (Meir rk) 07/22/2022 Appointment Radiation Oncology Sun Hope M.D., Ph.D. [address] [place] [phone] (Meir rk) documented as of this encounter Procedures Procedure Name Priority Date/Time Associated Diagnosis Comme nts PROSTATE-SPECIFIC Routine 04/17/2021 8:01 AM Screening Resu lts for this AG (PSA) SCRN, S CDT Examination Prostate pro cedure are in Cancer the results section. documented in this encounter Results (ABNORMAL) PSA (Prostate-Specific Antigen) Screen (04/17/2021 8:01 AM CDT) P athologist Signature Prostate-Speci 10.1 (H) <=6.5 04/17/2021 OWAT fic Ag ng/mL 2:51 PM CDT Comment: Biotin has been identified by the erika lewis as a potential interfering substance. ??Higher concentr ations of biotin may be found in multivitamins, hair/nail supple ments, and workout supplements. ??If the result does not ma [facility] clinical observations, repeat testing after patient [...] Location / / Volume Laterality Blood (Blood, 04/17/2021 8:01 AM 04/17/20 8:12 Venous) CDT AM CDT Kris Robles M.D., M.B.A. LAB BLOOD ADD-ON Performing Organization Address City/State/ZIP Code Phon e Number [facility]- [address] [place] [id number] [place] [address] System in [place] [address] [place] [address] documented in this encounter Visit Diagnoses Diagnosis Screening Examination Prostate Cancer documented in this encounter Care Teams Fruit Tester Relationship Specialty Start Date End Date Kris Robles M.D., M.B.A. PCP - General Internal Medicine 01/15/21 02/25/[address] [place] [phone] documented as of this encounter
--- OUTSIDE RECORDS SUMMARY | 2022-07-07 11:58 | XMS_ITS | Encounter Summary ---
:1945 Author Organization [facility] Address [address] [place] [address] Care Team Providers Name Role Phone Kris Robles M.D., M.B.A. Primary Care Provider [phone] Reason for Referral Outpatient (Routine) - Closed Specialty Diagnoses / Procedures Referred By Contact Refer red To Contact Cardiovascular Disease Adalid Silva [facility] DAMIAN, C.N.P. [address] [phone] Referral ID Status Reason Start Date Expiration Date Visits Requ ested Visits Authorized [id number] Closed 06/06/2021 06/06/2022 1 1 Reason for Visit Reason Comments Coronary Artery Disease Outpatient (Routine) - Closed Specialty Diagnoses / Procedures Referred By Contact Refer red To Contact Cardiovascular Disease Adalid Silva [facility] SALGADO, C.N.P. 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 How many drinks containing alcohol [...] or relatives? How often do you attend methodist or More than 4 times per year 04/15/2021 lutheran services? Do you belong to any clubs or Yes 02/05/2022 organizations such as methodist groups, unions, fraternal or athletic groups, or [...] have completed or the highest Doreen, MEd, MAIL RIDER, EMELYN) degree you have received? Sex Assigned at Date Recorded Male 03/27/2018 8:35 PM CDT documented as of this encounter Last Filed Vital Signs Vital Sign Reading Time Taken Comments Blood Pressure 147/79 06/06/2021 9:03 AM CDT Pulse 68 06/06/2021 8:58 AM CDT Temperature - - Respiratory Rate - - Oxygen Saturation - - Inhaled Oxygen Concentration - - Weight 85.5 kg (188 lb 7.9 oz) 06/06/2021 8:58 AM CDT Height - - Body Mass Index 26.29 05/12/2021 7:37 PM CDT documented in this encounter Progress Notes Adalid Silva, DAMIAN, C.N.P. - 06/06/2021 9:00 AM CDT SUBJECTIVE CHIEF COMPLAINT/REASON FOR VISIT Follow-up coronary artery disease. HISTORY OF PRESENT ILLNESS Dane Sheldon is seen today for annual follow-up. I last saw him on June 04, 2020. He tells me he has had no significant cardiopulmonary changes over the last year. His exercise capacity has gone down a bit lately because he has been dealing with several other noncardiac issues. Since even before our visit last year he had been struggling with some left hip pain after undergoing a left total hip arthroplasty in [place]. He was evaluated by [facility] who felt thathis surgical implant was stable. He had follow-up with Orthopedics later on who felt that his symptoms could be related to trochanteric and iliopsoas bursitis. He was also referred to orthopedic spine and had a spine MRI that showed some degenerative changes but no significant nerve impingement. He was also referred for an EMG but this was never completed. He continues to utilize physical therapy exercises and intermittent Tylenol and ibuprofen for discomfort relief. He does get relief when using these medications with most of the relief coming from the ibuprofen. He did have a prednisone course inJune of this year that was significantly helpful in reducing his symptoms. He has also been following with urology for an elevated PSA. He recently had a prostate biopsy. He had previously been more active walking 4-5 miles per day 4-5 days per week along with golfing regularly. He is still continuing to golf (when his back does not bother him) but has reduced his walking down to just a few miles per week. He otherwise denies any chest pains, palpitations, shortness ofbreath, PND, orthopnea or new lower extremity edema. His heart history is otherwise as follows: He had developed some chest discomfort with exertion on inclines and he had notified his primary career development counselor back in the fall of 2016 of [...] RPDA lesions. CURRENT MEDICATIONS Current Outpatient Medications: ??? aspirin 81 mg chewable tablet, Chew 1 tablet daily., Disp: , Rfl: ??? atorvastatin (LIPITOR) 80 mg tablet, TAKE ONE TABLET BY MOUTH EVERY DAY, Disp: 90 tablet, Rfl: 3 ??? losartan (COZAAR) 50 mg tablet, TAKE ONE TABLET BY MOUTH EVERY DAY, Disp: 90 tablet, Rfl: 3 ??? metoprolol succinate (TOPROL-XL) 25 mg 24 hr tablet, TAKE ONE TABLET BY MOUTH EVERY DAY, Disp: 90 tablet, Rfl: 3 ??? nitroglycerin (NITROSTAT) 0.4 mg SL tablet, Place 1 tablet (0.4 mg total) under the tongue as needed for chest pain. Place 1 tab under the tongue at first sign of chest pain. If no relief in 5 min,call 911. Repeat dose every 5 min up to 2 additional doses if chest pain continues., Disp: 25 tablet, Rfl: 11 ALLERGIES Allergies Allergen Reactions ??? Pollen Extracts Other (see comments) Sneezing MEDICAL HISTORY Past Medical History: Diagnosis Date ??? Cataract 2015 ??? Coronary Artery Disease (Unspecified) ??? Fracture Forearm Closed Initial bilateral, one by description was an open fracture, but did not require any surgery ??? Herpes Simplex Labialis recurrent ??? Hyperglycemia ??? Hyperlipidemia ??? Hypertension NOS 2016 ??? Neuropathy Peripheral etiology not clear ??? Osteoarthritis ??? Pain Chest Atypical with negative sestamibi 07/02/2014 at [facility] ??? Paresthesia hospitalization for face paresthesia at [facility] in the distant past, no residual SURGICAL HISTORY Past Surgical History: Procedure Laterality Date ??? ARTHROSCOPY KNEE Left 05/13/2006 secondary to mensical injury ??? CATARACT EXTRACTION W/ INTRAOCULAR LENS IMPLANT Left 02/12/2016 ??? CORONARY STENT PLACEMENT 2016 ??? JOINT REPLACEMENT Sep, 2019 ??? TONSILLECTOMY N/A as a child ??? VASECTOMY 1996 OBJECTIVE VITAL SIGNS BP 147/79 Pulse 68 Wt 85.5 kg BMI 26.29 kg/m?? PHYSICAL EXAMINATION General: Well-appearing male in no acute distress, alert and oriented x 3. Vessels: No JVD or carotid bruits. Heart: Regular rate and rhythm. Normal S1-S2. No murmurs, gallops or rubs. Lungs: Clear bilaterally. No rales or wheezing. Abdomen: Nondistended. Extremities: Warm without cyanosis or edema. DIAGNOSTICS Lab Results Component Value Date CREATININE 0.84 04/10/2021 BUN 19 04/10/2021 NA 140 04/10/2021 KSERUM 4.2 07/06/2019 KPLASMA 4.5 04/10/2021 CL 103 04/10/2021 CO2 27 02/05/2016 Lab Results Component Value Date CHOL 129 04/10/2021 Lab Results Component Value Date HDL 41 04/10/2021 Lab Results Component Value Date LDLCALC 69 04/10/2021 Lab Results Component Value Date TRIG 93 04/10/2021 ASSESSMENT / PLAN #1 Atherosclerotic [facility] Coronary Artery Without Angina Pectoris He is doing well with regard to his underlying coronary artery disease. He has not experiencing any concerning ischemic symptoms over the last year. He is still able to be active without any cardiopulmonary symptoms though his functional capacity has reduced due to noncardiac problems. He is on good me dical therapy that includes a low-dose aspirin as well as high-intensity statin therapy. I would recommend ongoing efforts at a heart healthy cardiovascular diet as well as goals of achieving 150 minutes of moderate intensity exercise weekly (when his musculoskeletal issues will allow him to do so, see below). #2 Hypertension Essential Primary His blood pressure is elevated at the clinic today but he reports having several cups of coffee before his morning appointment. He has been checking his blood pressure regularly at home and almost always sees blood pressures below 130/80. Below 130/80 is our goal and he will continue with his metoprolol succinate and losartan for now. He can report back if he sees higher numbers at home or consider bringing in his blood pressure machine to his next clinic appointment so that it can be assessed for accuracy. #3 Hyperlipidemia His cholesterol numbers appeared excellent on April 10, 2021 so he will continue with his atorvastatin at 80 mg daily and recommend ongoing efforts at diet and exercise for lifestyle management as well. #4 Pain Hip Left #5 Pain Back The biggest issues that affect his functional capacity are ongoing left hip and low back discomfort.He has been seen by Orthopedics as well as Ortho Spine. I would recommend ongoing follow-up with these specialties and/or primary care to try to find ways to improve these symptoms as he has a good motivation to remain quite active in this would be encouraged for his overall health. We discussed ways that he can achieve this end today. PLAN FOR FOLLOW-UP: Recommend follow-up by Cardiology in one year. documented in this encounter Plan of Treatment Upcoming Encounters Date Type Specialty Care Team Description 07/22/2022 Office Visit Urology Alexy Yuan M .D. [address] [place], [place] [phone] (Meir cronin) 07/22/2022 Appointment Radiation Oncology Sun Hope M.D., Ph.D. [address] [place], [place] [phone] (Meir cronin) Scheduled Referrals Name Type Priority Associated Order Schedule Diagnoses Cardiovascular Disease Outpatient Referral Routine Expected: office visit (clinic) 2021 (Approximate), Expires: 06/06/2024 documented as of this encounter Visit Diagnoses Diagnosis Atherosclerotic [facility] Coronary Artery Without Angina Pectoris - Primary Hypertension Essential Primary Hyperlipidemia Pain Hip Left Pain Back documented in this encounter Care Teams Nursing Professor Relationship Specialty Start Date End Date Kris Robles M.D., M.B.A. PCP - General Internal Medicine 01/15/21 02/25/[address] [phone] documented as of this encounter
--- OUTSIDE RECORDS SUMMARY | 2022-07-07 11:58 | XMS_ITS | Encounter Summary ---
:1945 Author Organization [facility] Address [address] [place] [address] Care Team Providers Name Role Phone Kris Robles M.D., M.B.A. Primary Care Provider [phone] Reason for Visit Reason Comments Communication Encounter Details Date Type Department Care Team Description 06/13/2021 Clinical Communication Department of John Encarnacion Co mmunication Orthopedic Surgery in [place], [place] [address] [facility] [address] [place] [phone] Social History Tobacco Use Types Packs/Day Years Used Date Smoking Tobacco: Never Smokeless Tobacco: Never Alcohol Use Standard Drinks/Week Comments Yes 6 (1 standard drink = 0.6 oz pure alcoho l) Alcohol Habits Answer Date Recorded How often do you have a drink containing 4 or more times a w mi'kmaq 02/05/2022 alcohol? How many drinks containing alcohol [...] or relatives? How often do you attend pentecostal or More than 4 times per year 04/15/2021 orthodox services? Do you belong to any clubs or Yes 02/05/2022 organizations such as pentecostal groups, unions, fraternal or athletic groups, or [...] have completed or the highest Doreen, MEd, MILLINERY WORKER, EMELYN) degree you have received? Sex Assigned at Date Recorded Male 03/27/2018 8:35 PM CDT documented as of this encounter Miscellaneous Notes Telephone Encounter - Son Weinstein - 06/16/2021 9:35 AM CDT Pt called, he would like an injection done. Could an order be placed for USGI? Phil, Forrest Telephone Encounter - Natanael Gates - 06/13/2021 3:23 PM CDT The pt called and when I tried to sched, Dec was the first avail. The pt said this will not do, wanted me to send a note to the team about seeing sooner, but I know clinic days are full Please advise Natanael documented in this encounter Plan of Treatment Upcoming Encounters Date Type Specialty Care Team Description 07/22/2022 Office Visit Urology Alexy Yuan M .D. [address] [place], [place] [phone] (Wo rk) 07/22/2022 Appointment Radiation Oncology Sun Hope M.D., Ph.D. [address] [place], [place] [phone] (Wo rk) documented as of this encounter Visit Diagnoses Not on filedocumented in this encounter Care Teams Prop Setter Relationship Specialty Start Date End Date Kris Robles M.D., M.B.A. PCP - General Internal Medicine 01/15/21 02/25/22 [address], [place] [phone] documented as of this encounter
--- OUTSIDE RECORDS SUMMARY | 2022-07-07 11:58 | XMS_ITS | Encounter Summary ---
:[address] [facility] Address [address] [place] [address] Care Team Providers Name Role Phone Kris Robles M.D., M.B.A. Primary Care Provider [phone] Reason for Referral Outpatient (Routine) - Closed Specialty Diagnoses / Procedures Referred By Contact Bita dey To Contact Urology Koffi Garrido M.D. [facility] [address] [place] [address] Referral ID Status Reason Start Date Expiration Date Visits Requ ested Visits Authorized [id number] Closed 05/08/2021 05/08/2022 1 1 RI/CAT/PET Scan (Routine) - Closed Specialty Diagnoses / Procedures Referred By Contact Bita dey To Contact Radiology Diagnoses Elevated Prostate-Specific Antigen Koffi Garrido M.D. [facility] Procedures MR Prostate without and with IV Contrast [address] [place] [address] Referral ID Status Reason Start Date Expiration Date Visits Requ ested Visits Authorized [id number] Closed 05/08/2021 05/08/2022 1 1 Reason for Visit Reason Comments Consult Elevated PSA Outpatient (Routine) - Closed Specialty Diagnoses / Procedures Referred By Contact Bita dey To Contact Urology Diagnoses Elevated Prostate-Specific Antigen Al Kris Davalos M.D., [facility] M.BJulianAJulian [address] [place] [address] Referral ID Status Reason Start Date Expiration Date Visits Requ ested Visits Authorized [id number] Closed 04/18/2021 04/18/2022 1 1 Encounter Details Date Type Department Care Team Description 05/08/2021 Comprehensive Visit Department of Filemon Garrido Urology in Koffi Butts M.D. Prostate-Specific [place] [address] [facility] [place] [phone] Social History Tobacco Use Types Packs/Day Years Used Date Smoking Tobacco: Never Smokeless Tobacco: Never Alcohol Use Standard Drinks/Week Comments Yes 6 (1 standard drink = 0.6 oz pure alcoho l) Alcohol Habits Answer Date Recorded How often do you have a drink containing 4 or more times a w [place] 02/05/2022 alcohol? How many drinks containing alcohol [...] or relatives? How often do you attend restorationist or More than 4 times per year 04/15/2021 episcopal services? Do you belong to any clubs or Yes 02/05/2022 organizations such as restorationist groups, unions, fraternal or athletic groups, or [...] have completed or the highest Doreen, MEd, GARNETT FEEDER, EMELYN) degree you have received? Sex Assigned at Date Recorded Male 03/27/2018 8:35 PM CDT documented as of this encounter Last Filed Vital Signs Vital Sign Reading Time Taken Comments Blood Pressure - - Pulse 73 05/08/2021 1:50 PM CDT Temperature 37 ??C (98.6 ??F) 05/08/2021 1:50 PM CDT Respiratory Rate - - Oxygen Saturation 100% 05/08/2021 1:50 PM CDT RA Inhaled Oxygen Concentration - - Weight - - Height - - Body Mass Index - - documented in this encounter Consult Notes Koffi Garrido M.D. - 05/08/2021 2:00 PM CDT CHIEF COMPLAINT/REASON FOR VISIT Elevated prostate specific antigen REFERRING PROVIDER Kris Robles MD, EMELYN HISTORY OF PRESENT ILLNESS This is a 75-year-old male whom I am asked to see. He has an elevated prostate specific antigen as outlined in the table below. His younger brother was diagnosed with prostate cancer, at approximately the age of 70. The patient does have some lower urinary tract symptoms. He has nocturia averaging once a night and some daytime frequency. No hematuria, dysuria, intermittent stream or incontinence. The patient is experiencing some left pelvic pain that is unexplained. PSA TABLE Lab Results Component Value Date PSA 9.9 (H) 04/21/2021 PSA 10.1 (H) 04/17/2021 PSA 4.0 03/27/2019 March 30, 2018 3.4 April 01, 2017 3.6 March 19, 2016 3.4 July 05, 2015 3.1 July 02, 2014 2.6 June 19, 2013 2.1 July 06, 2012 2.0 I-PSS Urinary Symptoms Score: 10 I-PSS Quality of Life Score: 3 PAST MEDICAL HISTORY Past Medical History: Diagnosis Date [...] Chest Atypical with negative sestamibi 07/02/2014 at [facility] ??? Paresthesia hospitalization for face paresthesia at [facility] in the distant past, no residual Past Surgical History: Procedure Laterality Date ??? ARTHROSCOPY KNEE Left 05/13/2006 secondary to mensical injury ??? CATARACT EXTRACTION W/ INTRAOCULAR LENS IMPLANT Left 02/12/2016 ??? CORONARY STENT PLACEMENT 2016 ??? JOINT REPLACEMENT Sep, 2019 ??? TONSILLECTOMY N/A as a child ??? VASECTOMY 1996 FAMILY HISTORY Family History Problem Relation Age of Onset ??? Heart attack Father ??? Heart disease Father ??? Coronary artery disease Father ??? Alcohol abuse Father Maybe ??? Heart disease Paternal Grandfather ??? No Known Problems Mother ??? No Known Problems Sister ??? No Known Problems Brother ??? Pancreatic cancer Brother ??? Alcohol abuse Brother ??? Colon cancer Neg Hx SOCIAL HISTORY Social History Socioeconomic History ??? Marital status: Spouse name: Not on file ??? Number of children: Not on file ??? Years of education: Not on file ??? Highest education level: Master's degree (e.g., MA, MS, Doreen, MEd, GARNETT FEEDER, EMELYN) Occupational History ??? Not on file Tobacco Use ??? Smoking status: Never Smoker ??? Smokeless tobacco: Never Used Vaping Use ??? Vaping Use: never used Substance and Sexual Activity ??? Alcohol use: Yes Alcohol/week: 6.0 standard drinks Types: 6 Cans of beer per week ??? Drug use: No ??? Sexual activity: Yes Partners: Female control/protection: Vasectomy Other Topics Concern ??? Not on file Social History Narrative He is and they live in [place]. 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 He has a daughter in [place], another daughter in [facility], and a son in [place]. He walks 4-5 miles a day 5days a week. They do winter in [place] and they also spend time with his daughters during the year. Social Determinants of Health Financial Resource Strain: Low Risk ??? Difficulty of Paying Living Expenses: Not hard at all Food Insecurity: No Food Insecurity ??? Worried About Running Out of Food in the Last Year: Never true ??? Ran Out of Food in the Last Year: Never true Transportation Needs: No Transportation Needs ??? Lack of Transportation (Medical): No ??? Lack of Transportation (Non-Medical): No Physical Activity: Sufficiently Active ??? Days of Exercise per Week: 5 days ??? Minutes of Exercise per Session: 60 min Stress: No Stress Concern Present ??? Feeling of Stress : Only a little Social Connections: Socially Integrated ??? Frequency of Communication with Friends and Family: More than three times a week ??? Frequency of Social Gatherings with Friends and Family: More than three times a week ??? Attends Denominational Services: More than 4 times per year ??? Active Member of Clubs or Organizations: Yes ??? Attends Club or Organization Meetings: More than 4 times per year ??? Marital Status: Intimate Partner Violence: Not At Risk ??? Fear of Current or Ex-Partner: No ??? Emotionally Abused: No ??? Physically Abused: No ??? Sexually Abused: No REVIEW OF SYSTEMS see per final history form dated May 08, 2021 MEDICATIONS Current Outpatient Medications Medication Sig Dispense Refill ??? aspirin 81 mg chewable tablet Chew 1 tablet daily. ??? atorvastatin (LIPITOR) 80 mg tablet TAKE ONE TABLET BY MOUTH EVERY DAY 90 tablet 3 ??? losartan (COZAAR) 50 mg tablet TAKE ONE TABLET BY MOUTH EVERY DAY 90 tablet 3 ??? metoprolol succinate (TOPROL-XL) 25 mg 24 hr tablet TAKE ONE TABLET BY MOUTH EVERY DAY 90 tablet3 ??? nitroglycerin (NITROSTAT) 0.[address] 1 tablet (0.4 mg total) under the tongue as needed for chest pain. Place 1 tab under the tongue at first sign of chest pain. If no relief in 5 min, call 911. Repeat dose every 5 min up to 2 additional doses if chest pain continues. 25 tablet 11 ??? cyclobenzaprine (FLEXERIL) 10 mg tablet Take 1 tablet (10 mg total) by mouth at bedtime as needed for muscle spasms. (Patient not taking: Reported on 05/08/2021 ) 30 tablet 0 ??? diclofenac sodium (VOLTAREN) 1 % gel Apply 4 g topically 4 (four) times a day. Apply to left hip. (Patient not taking: Reported on 05/08/2021 ) 100 g 2 No current facility-administered medications for this visit. ALLERGIES Allergies Allergen Reactions ??? Pollen Extracts Other (see comments) Sneezing VITAL SIGNS Pulse 73 Temp 37 ??C (Temporal) SpO2 100% Comment: RA PHYSICAL EXAMINATION GENERAL: Well-nourished, well-developed adult male in no apparent distress. No communication barriers. HEAD: No abnormality of appearance. No facial abnormalities. No neck masses. HEART: Regular rate and rhythm. Abdominal aorta is not palpable. Femoral pulses are 2+ and equal bilaterally. No peripheral cyanosis or edema. LUNGS: Normal respiratory movements. No shortness of breath. ABDOMEN: Flat and nondistended. No guarding. No tenderness. No ascites. No hepatosplenomegaly. Kidneys are not palpable. Bladder size is normal. There are no ventral hernias. There are no inguinal hernias. RECTUM: Perirectal Region: Unremarkable without evidence of condyloma, skin tags or other lesions. Rectal sphincter tone is normal. There are no rectal masses. PROSTATE: Prostate is approximately 30-35 grams in size. It is smooth in consistency. It is symmetrical. Prostate is without nodules or tenderness. Seminal vesicles are normal. GENITALIA: Penis: No discharge, no masses and no plaques. Meatus is normally located on the glans penis, there is no meatal scarring and it is of normal size. Penis is circumcised. Scrotum: No rashes. No hydroceles or spermatoceles are present. No palpable varicocele is noted. Testes: Both testes are descended. They are without masses or tenderness. Each testis is of normal size and consistency. Epididymides: Each epididymis is of normal size, without masses, without tenderness or signs of epididymitis. Both the right and left vas deferens are palpable. Perineum: Unremarkable. There are no obvious skin tags, condyloma or other lesions. SPINE: No spinal tenderness. No costovertebral angle tenderness. DIAGNOSTICS Lab Results Component Value Date URINESOURCE Midstream 04/21/2021 CLARITYU Clear 04/21/2021 COLORU Yellow 04/21/2021 RBCU Negative 04/21/2021 NITRITEU Negative 04/21/2021 LEUKOCYTESU Negative 04/21/2021 PROTEINQUALU Negative 04/21/2021 GLUCOSEU Negative 04/21/2021 KETONESU Trace (A) 04/21/2021 BILIRUBINU Negative 04/21/2021 PHURINE 6.0 04/21/2021 SPECGRAV 1.020 04/21/2021 UROBILINOGEN 0.2 04/21/2021 IMPRESSION/REPORT Elevated prostate specific antigen. This is associated with increased prostate specific antigen density an increased prostate specific antigen velocity. Family history of prostate cancer. OSEI is unremarkable. Left pelvic pain. PLAN We will proceed with a multiparametric MRI of the prostate and have him follow-up. We discussed other alternatives including observation and prostate ultrasound and biopsy. I explained a prostate biopsy including his technique and potential risk. I explained the advantages of doing the MRI prior to a potential biopsy. Electronically signed by: Koffi Garrido M.D. 05/08/21 2:36 PM CDT Answers for HPI/ROS submitted by the patient on 05/08/2021 Frequent urination (more than what you would consider normal): Yes Dribbling of urine after urinating: Yes None of the above: Yes Are you able to sense when your bladder is full?: Yes How many times daily do you typically urinate during the day?: 6 How many times do you typically wake up and urinate at night?: 1 Have you had a urinary tract infection (UTI) within the past 1 year, and if so how many?: none Have you had any kidney infections or required hospitalized for kidney failure?: No Have you required a catheter placed because you could not empty your bladder?: No Do you ever unintentionally leak urine?: No Have you ever or are currently taking any treatments to treat your urinary symptoms?: none Have you ever had any surgical or office procedures to improve your urinary symptoms?: No Fatigue: Yes Night sweats: Yes No eye issues: Yes No ENT issues: Yes No heart issues: Yes No respiratory issues: Yes No GI issues: Yes Muscle pain/stiffness: Yes Back pain/stiffness: Yes No skin issues: Yes Headache: Yes Numbness or shooting pain in hands, arms, legs or feet: Yes No mental health issues: Yes No blood/lymph issues: Yes Frequent urination: Yes Urgency: Yes documented in this encounter Plan of Treatment Upcoming Encounters Date Type Specialty Care Team Description 07/22/2022 Office Visit Urology Alexy Yuan M .D. [address] [place], [place] [phone] (Wo rk) 07/22/2022 Appointment Radiation Oncology Sun Hope M.D., Ph.D. [address] [place], [place] [phone] (Wo rk) Scheduled Referrals Name Type Priority Associated Diagnoses Order S [facility] Urology office Outpatient Referral Routine Expect ed: visit (clinic) 05/08/2021 (Approximate), Expires: 05/08/2024 documented as of this encounter Results MR Prostate without and with IV Contrast (05/12/2021 8:33 PM CDT) Anatomical Region Laterality Modality Pelvis, Abdominal RST LOS, Abdominal ARZ LOS, Abdominal N/A Magnetic Resonance FLA LOS Specimen (Source) Anatomical Collection Method Collection Time Re ceived Time Location / / Volume Laterality 05/13/2021 3:24 PM CDT Impressions 05/13/2021 4:12 PM CDT 1. Limited evaluation related to metallic artifact from left ANALIA. 2. Linear T2 hypointensities scattered i n both side peripheral zone, PI-RADS 2. However, given the elevated PSA density, random biopsy may be considered. Narrative 05/13/2021 4:12 PM CDT EXAM: MR PROSTATE WITHOUT AND WITH IV CONTRAST. CLINICAL HISTORY: Elevated PSA. Most rec ent PSA 9.9 ng/mL on 05/01/2021. COMPARISON: None available. PROSTATE: - Volume: 35 cc (PSA density 0.28). - Exam quality: Significantly degraded d iffusion-weighted imaging due to metallic artifact from the left ANALIA, whi ch limits evaluation. - Peripheral zone: Multiple linear and w edge shaped T2 hypointensities scattered in both side peripheral zone. Otherwise no discrete suspicious masses seen in the peripheral zone. - Transition zone: Nodular enlargement o f transition zone consistent with benign prostatic hyperplasia. LOCAL STAGING: - Capsule: Intact. - Neurovascular bundle invasion: Absent. - Seminal vesicles invasion: Absent. Sma ll T2 hypointense filling defects within the seminal vesicles, likely representin g clots or stones. - Other organ invasion: Absent. LYMPH NODES: No suspicion for suspicious lymph node(s). Mildly prominent left periaortic lymph node measuring 1.0 cm i n short axis (series 8 image 11). BONES: Negative for suspicious bone lesi on(s). Small nonenhancing T1 hypointense lesion in the right iliac wing, stable s amy the outside MRI dated 03/09/2019 and likely benign. Small likely hemangioma i n the left iliac wing. Degenerative changes of the spine and right hip joint . L4-5 interspace narrowing. Left ANALIA. 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 OTHER FINDINGS: Left renal cysts with th e largest in the upper kidney partly measures 14.9 x 11.4 cm. Trabeculated ur inary bladder wall. PROSTATE MRI TECHNIQUE: PIRADS version 2 .1 compliant. Multiparametric MRI of the prostate was performed at [address] with s urface coil. High resolution T2WI, DWI/ADC, and DCE imaging with IV contras t performed. Procedure Note Joslyn Rizvi M.D., Ph.D. - 05/13/2021For matting of this note might be different from the original. EXAM: MR PROSTATE WITHOUT AND WITH IV CO NTRAST. CLINICAL HISTORY: Elevated PSA. Most rec ent PSA 9.9 ng/mL on 05/01/2021. COMPARISON: None available. PROSTATE: - Volume: 35 cc (PSA density 0.28). - Exam quality: Significantly degraded d iffusion-weighted imaging due to metallic artifact from the left ANALIA, whi ch limits evaluation. - Peripheral zone: Multiple linear and w edge shaped T2 hypointensities scattered in both side peripheral zone. Otherwise no discrete suspicious masses seen in the peripheral zone. - Transition zone: Nodular enlargement o f transition zone consistent with benign prostatic hyperplasia. LOCAL STAGING: - Capsule: Intact. - Neurovascular bundle invasion: Absent. - Seminal vesicles invasion: Absent. Sma ll T2 hypointense filling defects within the seminal vesicles, likely representin g clots or stones. - Other organ invasion: Absent. LYMPH NODES: No suspicion for suspicious lymph node(s). Mildly prominent left periaortic lymph node measuring 1.0 cm i n short axis (series 8 image 11). BONES: Negative for suspicious bone lesi on(s). Small nonenhancing T1 hypointense lesion in the right iliac wing, stable s amy the outside MRI dated 03/09/2019 and likely benign. Small likely hemangioma i n the left iliac wing. Degenerative changes of the spine and right hip joint . L4-5 interspace narrowing. Left ANALIA. 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 OTHER FINDINGS: Left renal cysts with th e largest in the upper kidney partly measures 14.9 x 11.4 cm. Trabeculated ur inary bladder wall. PROSTATE MRI TECHNIQUE: PIRADS version 2 .1 compliant. Multiparametric MRI of the prostate was performed at [address] with s urface coil. High resolution T2WI, DWI/ADC, and DCE imaging with IV contras t performed. IMPRESSION: 1. Limited evaluation related to metalli c artifact from left ANALIA. 2. Linear T2 hypointensities scattered i n both side peripheral zone, PI-RADS 2. However, given the elevated PSA density, random biopsy may be considered. Koffi Garrido M.D. IMG MRI PROCEDURES documented in this encounter Visit Diagnoses Diagnosis Elevated Prostate-Specific Antigen Elevated Prostate-Specific Antigen documented in this encounter Care Teams Abalone Processor Relationship Specialty Start Date End Date Kris Robles M.D., M.B.A. PCP - General Internal Medicine 01/15/21 02/25/[address] [place] [phone] documented as of this encounter
--- OUTSIDE RECORDS SUMMARY | 2022-07-07 11:58 | XMS_ITS | Encounter Summary ---
:1945 Author Organization [facility] Address [address] [place] [address] Care Team Providers Name Role Phone Kris Robles M.D., M.B.A. Primary Care Provider Reason for Referral MRI/CAT/PET Scan (Routine) - Closed Specialty Diagnoses / Procedures Referred By Contact Refer red To Contact Radiology Diagnoses Elevated Prostate-Specific Antigen Koffi Garrido M.D. [facility] Procedures MR Prostate without and with IV Contrast [address] [place] [address] Referral ID Status Reason Start Date Expiration Date Visits Requ ested Visits Authorized [id number] Closed 05/08/2021 05/08/2022 1 1 Reason for Visit MRI/CAT/PET Scan (Routine) - Closed Specialty Diagnoses / Procedures Referred By Contact Refer red To Contact Radiology Diagnoses Elevated Prostate-Specific Antigen Koffi Garrido M.D. [facility] Procedures MR Prostate without and with IV Contrast [address] [place] [address] Referral ID Status Reason Start Date Expiration Date Visits Requ ested Visits Authorized [id number] Closed 05/08/2021 05/08/2022 1 1 Encounter Details Date Type Department Care Team Description 05/12/2021 Hospital Encounter Department of Trent Garrido, Twyla Rain M.D. Prostate-Specific Building, in [address] [place], [place] [address] [place] [phone] Social History Tobacco Use Types Packs/Day Years Used Date Smoking Tobacco: Never Smokeless Tobacco: Never Alcohol Use Standard Drinks/Week Comments Yes 6 (1 standard drink = 0.6 oz pure alcoho l) Alcohol Habits Answer Date Recorded How often do you have a drink containing 4 or more times a w [place] 02/05/2022 alcohol? How many drinks containing alcohol [...] have completed or the highest Doreen, MEd, SENIOR CREDIT OFFICER, EMELYN) degree you have received? Sex Assigned at Date Recorded Male 03/27/2018 8:35 PM CDT documented as of this encounter Last Filed Vital Signs Vital Sign Reading Time Taken Comments Blood Pressure - - Pulse - - Temperature - - Respiratory Rate - - Oxygen Saturation - - Inhaled Oxygen Concentration - - Weight - - Height 180.3 cm (5' 11) 05/12/2021 7:37 PM CDT Body Mass Index - - documented in this encounter Medications at Time of Discharge [...] Urology Alexy Yuan M .D. [address] [place] [phone] (Wo mehrdad) 07/22/2022 Appointment Radiation Oncology Sun Hope M.D., Ph.D. [address] [place], [place] [phone] (Wo rk) documented as of this encounter Procedures Procedure Name Priority Date/Time Associated Comments Diagnosis MR PROSTATE RAD - Routine 05/12/2021 8:33 Elevated Results for this WITHOUT AND WITH [...] density, random biopsy may be considered. Koffi [place] MRI PROCEDURES documented in this encounter Visit Diagnoses Diagnosis Elevated Prostate-Specific Antigen documented in this encounter Administered Medications Inactive Administered Medications - up to 3 most recent administrations Medication Order MAR Action Action Date Dose Rate Site gadoterate meglumine 0.5 mmol/mL Given 05/12/2021 8:33 PM CDT 18 mL (376.9 mg/mL) injection 1.6-20 mL (DOTAREM) 1.6-20 mL, intravenous, Once in imaging, contrast, Starting on Wed05/12/21 at 1937, For 1 dose, Imaging Protocol Orders, Dose per Radiant Medication Guidelines glucagon injection 0.5-1 mg Given 05/12/2021 8:32 PM CDT 1 mg Left Upper Arm (GlucaGen) (Back) 0.5-1 mg, subcutaneous, Once, On Wed05/12/21 at 1945, For 1 dose, Imaging Protocol Orders sodium chloride (PF) 0.9 % injection 1-1 00 mL Given 05/12/2021 8:34 PM CDT 20 mL 1-100 mL, intravenous, Once, On Wed05/12/21 at 1945, For 1 dose, Imaging Protocol Orders documented in this encounter Care Teams Franchise Consultant Relationship Specialty Start Date End Date Kris Robles M.D., M.B.A. PCP - General Internal Medicine 01/15/21 02/25/[address] [phone] documented as of this encounter
--- OUTSIDE RECORDS SUMMARY | 2022-07-07 11:58 | XMS_ITS | Encounter Summary ---
:1945 Author Organization [facility] Address [address] [place] [address] Care Team Providers Name Role Phone Kris Robles M.D., M.B.A. Primary Care Provider [phone] Reason for Visit Outpatient (Routine) - Closed Specialty Diagnoses / Procedures Referred By Contact Refer red To Contact Diagnoses Elevated Prostate-Specific Antigen Cancer Prostate Family History Lorene Juares APRN, [facility] Procedures URO Biopsy - Prostate C.N.P. [address] [place] [address] Referral ID Status Reason Start Date Expiration Date Visits Requ ested Visits Authorized [id number] Closed 05/15/2021 05/15/2022 1 1 Encounter Details Date Type Department Care Team Description 05/30/2021 Procedure visit Department of Lorene Juares APRN, C.N.P. [address] [place] [address] Elevated Prostate-Specific Antigen; Urology in Iraj Kiran M.D., M.P.H. [address] [place] [phone] Cancer Prostate Family History [place], [place] [address] [place] [phone] Social History Tobacco Use Types Packs/Day Years Used Date Smoking Tobacco: Never Smokeless Tobacco: Never Alcohol Use Standard Drinks/Week Comments Yes 6 (1 standard drink = 0.6 oz pure alcoho l) Alcohol Habits Answer Date Recorded How often do you have a drink containing 4 or more times a w false pass 02/05/2022 alcohol? How many drinks containing [...] or relatives? How often do you attend sabianism or More than 4 times per year 04/15/2021 temple services? Do you belong to any clubs or Yes 02/05/2022 organizations such as sabianism groups, unions, fraternal or athletic groups, or [...] have completed or the highest Doreen, MEd, CELLULOID TRIMMER, EMELYN) degree you have received? Sex Assigned at Date Recorded Male 03/27/2018 8:35 PM CDT documented as of this encounter Progress Notes Cherie Huber - 05/30/2021 3:00 PM CDT Patient was seen for transrectal biopsy. Probe used: serial number [id number]). documented in this encounter Procedure Notes Iraj Kiran M.D. - 05/30/2021 3:00 PM CDTAssociated Order(s): URO Biopsy - Prostate Pre-Procedure Diagnose(s): Elevated Prostate-Specific Antigen; Cancer Prostate Family History Post-Procedure Diagnose(s): Elevated Prostate-Specific Antigen; Cancer Prostate Family History URO Biopsy - Prostate Date/Time: 05/30/2021 4:27 PM Performed by: Iraj Kiran M.D. Authorized by: Lorene Juares APRN, C.N.P. PROCEDURE DETAILS Setting: Clinic Position: Right lateral decubitus Biopsy option(s) include: Standard Biopsy type: transrectal Technique: Side-fire Antibiotics at time of procedure: yes Antibiotics given: Oral antibiotics to hours prior to procedure, will continue postoperatively Region(s) of interest: None BIOPSY DETAILS Systemic biopsy completed at time of procedure: yes Biopsy location(s): Right base, right mid, right apex, left base, left mid and left apex Right base - number of biopsies: 2 Left base - number of biopsies: 2 Right mid - number of biopsies: 2 Left mid - number of biopsies: 2 Right apex - number of biopsies: 2 Left apex - number of biopsies: 2 Seminal vesicle biopsy NOT completed at time of procedure: Seminal vesicle biopsy ULTRASOUND DETAILS: Ultrasound guidance used: Image(s) not saved. Prostate volume (cc): 0 URONAV 3D image(s) were not saved. ADDITIONAL DETAILS: Known prostate cancer: no History of prior negative prostate biopsy: no Is this the first prostate biopsy?: yes CONSENT Consent obtained: verbal Consent given by: patient PRE PROCEDURE DETAILS Procedure purpose: Diagnostic Indications: Elevated PSA SEDATION / ANESTHESIA Anesthesia method: local infiltration POST PROCEDURE DETAILS Procedure completed successfully: yes Complications: None COMMENTS Standard template ultrasound-guided transrectal prostate biopsy. This was not an MRI fusion biopsy, as the MRI was incomplete due to hip implant artifact. OPERATIVE NOTE INFORMATION Specimens: Left prostate biopsy, right prostate biopsy Drains: None Estimated blood loss: Minimal Implants: None documented in this encounter Plan of Treatment Upcoming Encounters Date Type Specialty Care Team Description 07/22/2022 Office Visit Urology Alexy Yuan M .D. [address] [place], [place] [phone] (Wo rk) 07/22/2022 Appointment Radiation Oncology Sun Hope M.D., Ph.D. [address] [place], [place] [phone] (Wo rk) documented as of this encounter Procedures Procedure Name Priority Date/Time Associated Comments Diagnosis PROCEDURE PLACEHOLDER Routine 05/30/2021 4:27 PM Elevated Results for this CDT Prostate-Specific procedure are in Antigen the results Cancer Prostate section. Family History MD BIOPSY PROSTATE Routine 05/30/2021 4:27 PM Elevated Res ults for this NEEDLE/PUNCH CDT Prostate-Specific procedure are in Antigen the results Cancer Prostate section. Family History SURGICAL PATHOLOGY Routine 05/30/2021 4:27 PM Elevated Res ults for this CDT Prostate-Specific procedure are in Antigen the results section. documented in this encounter Results MD BIOPSY PROSTATE NEEDLE/PUNCH, PROCEDURE PLACEHOLDER (05/30/2021 4:27 [...] None Lorene Juares APRN, C.N.P. UROLOGY ORDERABLES Surgical Pathology (05/30/2021 4:27 PM CDT) Component Value Ref Test Analysis Performed At [facility] Method Time Signature 06/02/2021 DTL 2:47 PM CDT Participated in [facility] 06/02/2021 DT the Interpretation Aleksandr, 2:47 PM CDT MArin-Patholog y Resident Report Jose HammS., Ph.D. [phone] DTL electronically 2:47 PM CDT signed by I verify that I have examined all relevant slides/materials for the specimen(s) and rendered or confirmed the diagnosis. Gross Description A: ?? Received in formalin labeled with the patie nt's name, 06/02/2021 DTL medical record number, and prostate, left are four pale 2:47 PM CDT hanna soft tissue cores and six fragments, measuring 0.1-1.8 cm in length. ??The specimens are submitted EN toto in cassettes A1-A2. ??Grossed by LMB. B: ?? Received in formalin labeled with the patient's name, medical record number, and prostate, right five pale hanna soft tissue cores and two fragments, measuring 0.2-1.9 cm in length. ??The specimens are submitted EN toto in cassettes B1-B2. ??Grossed by LMB. Interpretation FINAL DIAGNOSIS 06/02/2021 DTL A. ??Prostate, left, needle core biopsy: ?? Atypical small 2:47 PM CDT glands suspicious for, but not diagnostic of, malignancy. B. ??Prostate, right, needle core biopsy: ??Benign prostatic tissue. Specimen Anatomical Collection Method Collection Time Receive d Time (Source) Location / / Volume Laterality Varies 05/30/2021 4:27 PM 5:46 CDT PM CDT Narrative This result has an attachment that is no t available. Iraj Kiran M.D., M.P.H. LAB SURG PATH ORDERABLES Performing Organization Address City/State/ZIP Code Phon e Number [facility] - [address] [place], [place] [address] [facility] [address] [facility] [address] documented in this encounter Visit Diagnoses Diagnosis Elevated Prostate-Specific Antigen Cancer Prostate Family History documented in this encounter Administered Medications Inactive Administered Medications - up to 3 most recent administrations Medication Order MAR Action Action Date Dose Rate Site lidocaine 10 mg/mL (1 %) injection Given 05/30/2021 3:51 PM CDT 10 mL 10 mL (XYLOCAINE) 10 mL, injection, Once, On Wed05/30/21 at 1600, For 1 dose documented in this encounter Care Teams Fire Inspector Relationship Specialty Start Date End Date Kris Robles M.D., M.B.A. PCP - General Internal Medicine 01/15/21 02/25/[address] [address] documented as of this encounter
--- OUTSIDE RECORDS SUMMARY | 2022-07-07 11:59 | XMS_ITS | Encounter Summary ---
:1945 Author Organization [facility] Address [address] [place] [address] Care Team Providers Name Role Phone Kris Robles M.D., M.B.A. Primary Care Provider [phone] Reason for Referral Outpatient (Routine) - Closed Specialty Diagnoses / Procedures Referred By Contact Refer red To Contact Spine Diagnoses Pain Back John Encarnacion M.D. [facility] [address] [place] [address] Referral ID Status Reason Start Date Expiration Date Visits Requ ested Visits Authorized [id number] Closed 02/26/2021 02/26/2022 1 1 Encounter Details Date Type Department Care Team Description 02/26/2021 Orders Only Department of Isaura Haas, Pain Charlotte k (Primary Dx) Orthopedic Surgery in [place], [place] [address] [facility] [address] [place] [phone] Social History Tobacco Use Types Packs/Day Years Used Date Smoking Tobacco: Never Smokeless Tobacco: Never Alcohol Use Standard Drinks/Week Comments Yes 6 (1 standard drink = 0.6 oz pure alcoho l) Alcohol Habits Answer Date Recorded How often do you have a drink containing 4 or more times a w [place] 02/05/2022 alcohol? How many drinks containing alcohol [...] or relatives? How often do you attend samaritan or More than 4 times per year 04/15/2021 adventist services? Do you belong to any clubs or Yes 02/05/2022 organizations such as samaritan groups, unions, fraternal or athletic groups, or [...] have completed or the highest Doreen, MEd, BATTERY MECHANIC, EMELYN) degree you have received? Sex Assigned at Date Recorded Male 03/27/2018 8:35 PM CDT documented as of this encounter Plan of Treatment Upcoming Encounters Date Type Specialty Care Team Description 07/22/2022 Office Visit Urology Alexy Yuan M .D. [address] [place], [place] [phone] (Meir cronin) 07/22/2022 Appointment Radiation Oncology Sun Hope M.D., Ph.D. [address] [place], [place] [phone] (Meir cronin) Scheduled Referrals Name Type Priority Associated Diagnoses Order S chedule Spine - Neurology Outpatient Referral Routine Pain Back Exp ected: consult (clinic) 02/26/2021 (Approximate), Expires: 02/27/2024 documented as of this encounter Visit Diagnoses Diagnosis Pain Back - Primary documented in this encounter Care Teams Music Arranger Relationship Specialty Start Date End Date Kris Robles M.D., M.B.A. PCP - General Internal Medicine 01/15/21 02/25/[address] [address] documented as of this encounter
--- OUTSIDE RECORDS SUMMARY | 2022-07-07 11:59 | XMS_ITS | Encounter Summary ---
:1945 Author Organization [facility] Address [address] [place] [address] Care Team Providers Name Role Phone Kris Robles M.D., M.B.A. Primary Care Provider [phone] Encounter Details Date Type Department Care Team Description 02/19/2021 Clinical Communication Department of Internal Sandoval Davalos , Medicine in Kris Butts M.D.[place], [place] M.B.A. [address] [place] [address] [place], [place] [phone] Social History Tobacco Use Types Packs/Day Years Used Date Smoking Tobacco: Never Smokeless Tobacco: Never Alcohol Use Standard Drinks/Week Comments Yes 6 (1 standard drink = 0.6 oz pure alcoho l) Alcohol Habits Answer Date Recorded How often do you have a drink containing 4 or more times a w [place] 02/05/2022 alcohol? How many drinks containing alcohol [...] or relatives? How often do you attend mandaen or More than 4 times per year 04/15/2021 moravian services? Do you belong to any clubs or Yes 02/05/2022 organizations such as mandaen groups, unions, fraternal or athletic groups, or [...] have completed or the highest Doreen, MEd, HYDRAULIC BARKER OPERATOR, EMELYN) degree you have received? Sex Assigned at Date Recorded Male 03/27/2018 8:35 PM CDT documented as of this encounter Plan of Treatment Upcoming Encounters Date Type Specialty Care Team Description 07/22/2022 Office Visit Urology Alexy Yuan M .D. [address] [place], [place] [phone] (Wo mehrdad) 07/22/2022 Appointment Radiation Oncology Sun Hope M.D., Ph.D. [address] [place], [place] [phone] (Wo rk) documented as of this encounter Visit Diagnoses Not on filedocumented in this encounter Care Teams Librarian School Relationship Specialty Start Date End Date Kris Robles M.D., M.B.A. PCP - General Internal Medicine 01/15/21 02/25/22 [address] [place] [address] documented as of this encounter
--- OUTSIDE RECORDS SUMMARY | 2022-07-07 11:59 | XMS_ITS | Encounter Summary ---
:1945 Author Organization [facility] Address [address] [place] [address] Care Team Providers Name Role Phone Kris Robles M.D., M.B.A. Primary Care Provider [phone] Reason for Visit Reason Comments Intake Assessment Encounter Details Date Type Department Care Team Description 02/28/2021 Clinical Communication Department of Lise Staples Assessment Spine in Michael Weber Malcolm, [address] [place], [place] [address] [facility] [address] [place], [place] [phone] (Work) [phone] Social History Tobacco Use Types Packs/Day Years Used Date Smoking Tobacco: Never Smokeless Tobacco: Never Alcohol Use Standard Drinks/Week Comments Yes 6 (1 standard drink = 0.6 oz pure alcoho l) Alcohol Habits Answer Date Recorded How often do you have a drink containing 4 or more times a w [place] 02/05/2022 alcohol? How many drinks containing alcohol [...] have completed or the highest Doreen, MEd, BULLDOZER OPERATOR, EMELYN) degree you have received? Sex Assigned at Date Recorded Male 03/27/2018 8:35 PM CDT documented as of this encounter Plan of Treatment Upcoming Encounters Date Type Specialty Care Team Description 07/22/2022 Office Visit Urology Alexy Yuan M .D. [address] [place], [place] [phone] (Wo rk) 07/22/2022 Appointment Radiation Oncology Sun Hope M.D., Ph.D. [address] [place], [place] [phone] (Wo rk) documented as of this encounter Visit Diagnoses Not on filedocumented in this encounter Care Teams External Auditor Relationship Specialty Start Date End Date Kris Robles M.D., M.B.A. PCP - General Internal Medicine 01/15/21 02/25/[address] [place] [address] documented as of this encounter
--- OUTSIDE RECORDS SUMMARY | 2022-07-07 11:59 | XMS_ITS | Encounter Summary ---
:1945 Author Organization [facility] Address [address] [place] [address] Care Team Providers Name Role Phone Kris Robles M.D., M.B.A. Primary Care Provider [phone] Encounter Details Date Type Department Care Team Description 04/14/2021 Clinical Communication Department of Internal Sandoval Davalos , Medicine in Kris Butts M.D.[place], [place] M.B.A. [address] [place] [address] [place], [place] [phone] [address] Social History Tobacco Use Types Packs/Day Years Used Date Smoking Tobacco: Never Smokeless Tobacco: Never Alcohol Use Standard Drinks/Week Comments Yes 6 (1 standard drink = 0.6 oz pure alcoho l) Alcohol Habits Answer Date Recorded How often do you have a drink containing 4 or more times a w [place] 02/05/2022 alcohol? How many drinks containing alcohol [...] More than 4 times per year 04/15/2021 islam services? Do you belong to any clubs [...] have completed or the highest Doreen, MEd, CONVICT GUARD, EMELYN) degree you have received? Sex Assigned at Date Recorded Male 03/27/2018 8:35 PM CDT documented as of this encounter Miscellaneous Notes Telephone Encounter - Lucila Raines - 04/14/2021 1:32 PM CDT Reason for Communication: Patient requesting a PSA test be done. Please place orders for PSA testing. If requiring new specimen please message patient to schedule prior to appointment on 04/17. If not requiring new specimen please contact lab with orders. Checked with the lab due to patient just having labs done on they do have enough blood on hand to run a PSA test, but according to the process laboratory specialist it was run on a different machine than it would need to be run on for the PSA test. This could result in cross contamination. Current Can Nursing/Provider leave a detailed message?: Patient wants message in portal Did the patient refuse triage through Nurse line? (for symptom based concerns): Action Needed: Please place orders for PSA testing. Name of Medication (if relevant): Thank you Please send all scheduling replies to scheduling pool. documented in this encounter Plan of Treatment Upcoming Encounters Date Type Specialty Care Team Description 07/22/2022 Office Visit Urology Alexy Yuan M .D. [address] [place], [place] [phone] (Meir cronin) 07/22/2022 Appointment Radiation Oncology Sun Hope M.D., Ph.D. [address] [place], [place] [phone] (Meir cronin) documented as of this encounter Results (ABNORMAL) PSA (Prostate-Specific Antigen) Screen (04/17/2021 8:01 AM CDT) athologist Signature Prostate-Speci 10.1 (H) <=6.5 04/17/2021 OWAT fic Ag ng/mL 2:51 PM CDT Comment: Biotin has been identified by the erika lewis as a potential interfering substance. ??Higher concentr ations of biotin may be found in multivitamins, hair/nail supple ments, and workout supplements. ??If the result does not [facility] clinical observations, repeat testing after patient [...] Organization Address City/State/ZIP Code Phon e Number [facility]- [address] [place] [address] [facility] [place] [address] System in [place] [address] documented in this encounter Visit Diagnoses Diagnosis Screening Examination Prostate Cancer - Primary documented in this encounter Care Teams Naval Aircrewman Tactical Helicopter Relationship Specialty Start Date End Date Kris Robles M.D., M.B.A. PCP - General Internal Medicine 01/15/21 02/25/[address] [phone] documented as of this encounter
--- OUTSIDE RECORDS SUMMARY | 2022-07-07 11:59 | XMS_ITS | Encounter Summary ---
:1945 Author Organization [facility] Address [address] [place] [address] Care Team Providers Name Role Phone Kris Robles M.D., M.B.A. Primary Care Provider [phone] Reason for Referral MRI/CAT/PET Scan (Routine) - Closed Specialty Diagnoses / Procedures Referred By Contact Refer red To Contact Radiology Diagnoses Pain Low Back Unspecified Lise Staples M.D. [facility] Procedures MR Lumbar Spine without IV Contrast [address] [place] [address] Referral ID Status Reason Start Date Expiration Date Visits Requ ested Visits Authorized [id number] Closed 03/03/2021 03/03/2022 1 1 Reason for Visit Outpatient (Routine) - Closed Specialty Diagnoses / Procedures Referred By Contact Refer [email or web address] To Contact Spine Diagnoses Pain Back John Encarnacion M.D. [facility] [address] [place] [address] Referral ID Status Reason Start Date Expiration Date Visits Requ ested Visits Authorized [id number] Closed 02/26/2021 02/26/2022 1 1 Encounter Details Date Type Department Care Team Description 03/03/2021 Comprehensive Visit Department of Spine Heather Staples I., Pain Back; in Michael Patel Pain Low Back [place] [address] [facility] [address] [place] [phone] Social History Tobacco Use Types Packs/Day Years Used Date Smoking Tobacco: Never Smokeless Tobacco: Never Alcohol Use Standard Drinks/Week Comments Yes 6 (1 standard drink = 0.6 oz pure alcoho l) Alcohol Habits Answer Date Recorded How often do you have a drink containing 4 or more times a w [place] 02/05/2022 alcohol? How many drinks containing alcohol [...] or relatives? How often do you attend episcopalian or More than 4 times per year 04/15/2021 christian services? Do you belong to any clubs or Yes 02/05/2022 organizations such as episcopalian groups, unions, fraternal or athletic groups, or [...] have completed or the highest Doreen, MEd, BUDGET DIRECTOR, EMELYN) degree you have received? Sex Assigned at Date Recorded Male 03/27/2018 8:35 PM CDT documented as of this encounter Consult Notes Lise Staples M.D. - 03/03/2021 9:00 AM CDT Images from the original note were not included. SUBJECTIVE CHIEF COMPLAINT / REASON FOR VISIT Dane Sheldon Jr. is a 75 y.o. male who presents for evaluation of No chief complaint on file.. HISTORY OF PRESENT ILLNESS Mr. Pito Cruz is a 74 y.o. male with a history of coronary artery disease, hypertension, peripheralneuropathy, lumbar spine degenerative disease, left total hip arthroplasty in September 2019, and multiple medical problems. He is referred by Dr. Encarnacion for left hip pain with the question of whether the pain generator may bein his lumbar spine. He had a left ANALIA in September 2019, which helped his left hip pain. In December 2020, he developed recurrence of the left hip pain following a long car trip and Zoom meetings with prolonged sitting. He has had stiffness in the lower back for years, and does not think it has worsened over the past few years. He originally had pain over the left lateral left hip radiating to the groin. More recently, the lateral hip has not been as painful, and the main location of pain seems to encompass the groinand the left anterior thigh. For 3-4 days, he did have some discomfort in the left shepard, but at thispoint, pain is not radiating past the knee. No weakness or numbness in the lower extremities. He has some urinary frequency but no substantial urgency, and no incontinence or difficulty voiding. Pain is worse with prolonged sitting. It is painful when he first stands or gets out of bed, but then when he gets going, pain initially improves. Groin and anterior thigh pain worsens with walking more than 200 yards. Not better or worse with flexion. He is not aware that it is better with leaning over a shopping cart. Not worse with extension. Worse with lying on the left side. Not worse with hip movement. Pain is not worse at night. He sleeps on his right side because it is too painful to sleep on the left side. No weight loss or fevers. He does have lumbar spine degenerative disease on Xray with near complete loss of disc space at L4-5. The following portions of the patient's history were reviewed and updated as appropriate: allergies,current medications, family history, medical history, social history, surgical history and problem list. REVIEW OF SYSTEMS: Constitutional: Negative for fever. Skin: Negative for skin rash. Eyes: Negative for sudden loss of vision. ENT: Negative for difficulty hearing. Respiratory: Negative for dry cough. Cardiovascular: Negative for pain in the calf muscles when walking. Gastrointestinal: Positive for abdominal (belly) pain or cramping. Genitourinary: Positive for frequent urination. Hematologic: Negative for bruises or bleeds easily. Musculoskeletal: Positive for back pain. Neurological: Negative for weakness in arms or legs. Psychiatric/Behavioral: Positive for sleep disturbance. OBJECTIVE PHYSICAL EXAM For details of the neurologic examination, please see the neurologic examination form. Mental Status Patient is awake, alert, oriented to person, time and place, and able to engage in the history and examination. General Appearance: Appears stated age no apparent distress. Language: normal Motor Speech: normal Neurovascular Rhythm: Regular Reflexes Right Left Corneal V,VII Snout Sucking Pharynx IX, X Jaw V -1 Biceps C56 -1 -1 Brachioradialis C56 -1 -1 Triceps C678 -1 Lorraine Epigastric T6-9 Hypogastric T11-L1 Cremasteric L12 -1 Quadriceps L234 -1 -3 Gastroc. Soleus -3 0 Clonus (ankle) 0 Hamstr. Int L45 S12 Hamstr. Ext L5 S12 Anal S34 Bulbocav. S34 flexor Babinski flexor Chaddock General Motor Survey Walk on toes: 0 on the right and 0 on the left Walk on heels: 0 on the right and 0 on the left Arm swin on the right and 0 on the left Drift: 0 on the right and 0 on the left Straight away: 0 On turns: 0 Tandem: -3 Station: Standin Romber Sittin Coordination: [id number]-Vigcwj with Eyes Open: 0 on the right and 0 on the left Heel to knee: 0 on the right and 0 on the left Alternating Motion Rate: Hands: 0 on the right and 0 on the left Fingers: 0 on the right and 0 on the left Feet: 0 on the right and 0 on the left Muscle Tone: Right Upper Extremity: 0 Right Lower Extremity: 0 Left Upper Extremity: 0 Left Lower Extremity: 0 Cranial Nerves Ptosis: 0 on the right and 0 on the left III-IV-: normal on the right and normal on the left Field Confrontation: Field Confrontation Comments: VFF Eye Movements: Eye Movement Comments: EOMI Right PUPILS Left 3 mm Size 3 mm round Shape round REFLEXES 0 Light 0 Consensual Accommodation Hearin on the right and 0 on the left Comments: No droop Buries lashes Palate elevates symmetrically Tongue strong and midline Shoulder shrug symmetric Muscle: Right Left Comment Fascic Size Strength Strength Size Fascic Comment Temporal-Masseter Pterygoid Forehead 0 Orbic oculi 0 Mouth (retraction) 0 Palate-Pharynx 0 Sternomastoid 0 Trapezius 0 0 Tongue 0 Neck flexors Neck extensors Right Left Comment Fascic Size Strength Strength Size Fascic Comment Muscle Bulk Uppers 0 Ext rotat. (supraascap) 0 Pector. Michael. (pector) 0 Deltoid (axill) 0 0 Biceps (musculocut.) 0 Brachioradial (radial) Supinator (radial) Pronator teres (median) 0 Triceps (radial) 0 Wrist ext. (radial) Wrist flex. (med & uln) 0 Digit ext. (radial) 0 Digit flex. (med. & uln) 0 Thenar (med) 0 0 Hypothenar (uln) 0 0 Interossei (uln) 0 Abdomen Rectal sphinct. Right Left Comment Fascic Size Strength Strength Size Fascic Comment Muscle Bulk Lowers 0 Iliopsoas (femoral) -1 0 Adduct. thigh (obtur) 0 0 Abduct. thigh (sup glut) 0 Gluteus max. (inf glut) 0 Quadriceps (femor) 0 0 Hamstrings (sciat) 0 0 Anter. tibial (peron) 0 0 Toe ext. (peron) 0 0 Ext. genevieve. long (peron) 0 0 Peronei (peron) 0 0 Post. tibial (tib) 0 Toe flex. (tib) 0 Gastroc. Soleus (tib) 0 Comments: Left hip flexion limited by guarding secondary to pain FADIR (+) SLR (-) Sensory Large and small fiber modalities normal except as noted below or on the image Adult Image ASSESSMENT / PLAN # 1 Recurrence of left hip, anterior thigh and groin pain since December 2020. # 2 Known history of lumbar spondylosis # 3 s/p left ANALIA in September 2019 Pain is predominantly located in the left hip, groin, and anterior thigh, with very rare discomfort in the left shepard. He has some mild longstanding low back pain without recent worsening, and a known h/o lumbar spondylosis. [facility] with the question of whether his left hip pain could be related to disease of the lumbar spine. Some of the features on his history are more often seen when the hip is the pain generator, but I agree that it is worth evaluating his lumbar spine. For example, pain from lumbar spondylosis can be referred to the hip, thigh and groin even in the absence of radiculopathy, and L3 radiculopathy can radiate to the anterior thigh. On exam, he does not have actual deficits pointing to a radicular distribution. His distil lower extremity numbness is likely related to a known h/o peripheral neuropathy. For evaluation, I have ordered an MRI of the lumbar spine to look for evidence of lumbar spinal stenosis, facet disease, or foraminal narrowing. I have also ordered an EMG to look for evidence of L3/4 radiculopathy. Mr. Sheldon should seek immediate medical attention for loss of strength in the lower extremity or difficulty controlling bowel or bladder. I will contact him with the results of the above studies. documented in this encounter Plan of Treatment Upcoming Encounters Date Type Specialty Care Team Description 07/22/2022 Office Visit Urology Alexy Yuan M .D. [address] [place] [phone] (Wo mehrdad) 07/22/2022 Appointment Radiation Oncology Sun Hope M.D., Ph.D. [address] [place] [phone] (Wo mehrdad) documented as of this encounter Results MR Lumbar Spine without IV Contrast (03/06/2021 4:32 PM CDT) Anatomical Region Laterality Modality Lumbar Spine, Neuroradiology RST LOS, Neuroradiology N/A Magnetic Resonance ARZ LOS, Neuroradiology FLA LOS Specimen (Source) Anatomical Collection Method Collection Time Re ceived Time Location / / Volume Laterality 03/06/2021 4:51 PM CDT Impressions 03/06/2021 4:58 PM CDT Multilevel spondylotic changes, as described. No high-grade spinal canal narrowing. Narrative 03/06/2021 4:58 PM CDT EXAM: MR LUMBAR SPINE WITHOUT IV CONTRAST COMPARISON: Lumbar spine radiograph 02/12. FINDINGS: Normal lumbar vertebral body h eights and alignment. No substantial marrow edema is evident. Diffusely heter ogeneous marrow signal intensity. T12-L1 and L1-L2: Mild spondylotic lugo es without spinal canal or neural foraminal narrowing. L2-L3: Mild disc bulge without substanti al spinal canal narrowing. Mild right neural foraminal narrowing. L3-L4: Disc bulge and a small right fora senthil zone disc protrusion with mild to moderate right neural foraminal narrowin g, closely approximating the exiting right L3 nerve root. L4-L5: Advanced disc degeneration and di sc height loss. Disc bulge, a small left subarticular/central zone disc extrusion with mild inferior migration, and degenerative endplate spurring, resultin g in mild bilateral neural foraminal narrowing and mild narrowing of the left lateral recess. L5-S1: Mild spondylotic changes with mil d bilateral neural foraminal narrowing. Normal appearance of the conus medullari s and cauda equina nerve roots. Partially imaged, very large left renal cyst (series 2 image 21). Procedure Note Guanaco Ulrich M.D. - 03/06/2021Format ting of this note might be different from the original. EXAM: MR LUMBAR SPINE WITHOUT IV CONTRAS T COMPARISON: Lumbar spine radiograph 02/12. FINDINGS: Normal lumbar vertebral body h eights and alignment. No substantial marrow edema is evident. Diffusely heter ogeneous marrow signal intensity. T12-L1 and L1-L2: Mild spondylotic lugo es without spinal canal or neural foraminal narrowing. L2-L3: Mild disc bulge without substanti al spinal canal narrowing. Mild right neural foraminal narrowing. L3-L4: Disc bulge and a small right fora senthil zone disc protrusion with mild to moderate right neural foraminal narrowin g, closely approximating the exiting right L3 nerve root. L4-L5: Advanced disc degeneration and di sc height loss. Disc bulge, a small left subarticular/central zone disc extrusion with mild inferior migration, and degenerative endplate spurring, resultin g in mild bilateral neural foraminal narrowing and mild narrowing of the left lateral recess. L5-S1: Mild spondylotic changes with mil d bilateral neural foraminal narrowing. Normal appearance of the conus medullari s and cauda equina nerve roots. Partially imaged, very large left renal cyst (series 2 image 21). IMPRESSION: Multilevel spondylotic changes, as descr ibed. No high-grade spinal canal narrowing. Lise SHEFFIELD MRI PROCEDURES documented in this encounter Visit Diagnoses Diagnosis Pain Back Pain Low Back Unspecified Pain Low Back Unspecified documented in this encounter Care Teams Preconstruction Manager Relationship Specialty Start Date End Date Kris Robles M.D., M.B.A. PCP - General Internal Medicine 01/15/21 02/25/[address] [phone] documented as of this encounter
--- OUTSIDE RECORDS SUMMARY | 2022-07-07 11:59 | XMS_ITS | Encounter Summary ---
:1945 Author Organization [facility] Address [address] [place] [address] Care Team Providers Name Role Phone Kris Robles M.D., M.B.A. Primary Care Provider [phone] Encounter Details Date Type Department Care Team Description 04/16/2021 Clinical Communication Department of Internal Sandoval Davalos , Medicine in Kris Butts M.D.[place], [place] M.B.A. [address] [place] [address] [place], [place] [phone] Social History Tobacco Use Types Packs/Day Years Used Date Smoking Tobacco: Never Smokeless Tobacco: Never Alcohol Use Standard Drinks/Week Comments Yes 6 (1 standard drink = 0.6 oz pure alcoho l) Alcohol Habits Answer Date Recorded How often do you have a drink containing 4 or more times a w [place] 02/05/2022 alcohol? How many drinks containing alcohol [...] or relatives? How often do you attend sikhism or More than 4 times per year 04/15/2021 anglican services? Do you belong to any clubs or Yes 02/05/2022 organizations such as sikhism groups, unions, fraternal or athletic groups, or [...] have completed or the highest Doreen, MEd, LOG ROLLER, EMELYN) degree you have received? Sex Assigned at Date Recorded Male 03/27/2018 8:35 PM CDT documented as of this encounter Miscellaneous Notes Telephone Encounter - Kris Robles M.D., M.B.A. - 04/16/2021 11:42 AM CDT Patient notified about results. Patient stated that he did check COVID serology to make sure he had adequate response. Patient was reassured and I apologize for the confusion. Patient stated that he had no further questions. Patient is scheduled to see me tomorrow. Telephone Encounter - Ale Taylor L.P.N. - 04/16/2021 10:29 AM CDT SUBJECTIVE CHIEF COMPLAINT / REASON FOR CALL No chief complaint on file. Information Discussed Spoke to patient with advisement given per Dr Robles with patient requesting clarification due to test was to see if he had antibodies to COVID since he previously had COVID and id also fully vaccinated. Please return call to patient on his cell phone at [phone] PLAN Disposition/Recommendation: notified provider and awaiting recommendations Information/Education: patient/caller able to teach back Caller agreeable to plan of care: no wants clarification The following references were used: provider Dr Robles and other patient Telephone Encounter - Lise Tenorio L.P.N. - 04/16/2021 9:28 AM CDT Left message for patient to return call to clinic. Does the patient need to speak to nursing? yes Resulting provider: Sandoval Davalos Action needed: Please notify patient that his COVID test came back positive. Patient needs to quarantine for the next 2 weeks. If patient develops any worsening symptoms, then he needs to reach out to us again. documented in this encounter Plan of Treatment Upcoming Encounters Date Type Specialty Care Team Description 07/22/2022 Office Visit Urology Alexy Yuan M .D. [address] [place], [place] [phone] (Meir cronin) 07/22/2022 Appointment Radiation Oncology Sun Hope M.D., Ph.D. [address] [place], [place] [phone] (Meir cronin) documented as of this encounter Visit Diagnoses Not on filedocumented in this encounter Care Teams Sales Representative Rural Power Relationship Specialty Start Date End Date Kris Robles M.D., M.B.A. PCP - General Internal Medicine 01/15/21 02/25/22 [address] [place] [phone] documented as of this encounter
--- OUTSIDE RECORDS SUMMARY | 2022-07-07 11:59 | XMS_ITS | Encounter Summary ---
:1945 Author Organization [facility] Address [address] [place] [address] Care Team Providers Name Role Phone Kris Robles M.D., M.B.A. Primary Care Provider [phone] Encounter Details Date Type Department Care Team Description 04/04/2021 Orders Only Department of Internal Kris Robles , Medicine in Michael Butts, M.B. A. [place] [address] [place] [phone] (Wo rk) Social History Tobacco Use Types Packs/Day Years Used Date Smoking Tobacco: Never Smokeless Tobacco: Never Alcohol Use Standard Drinks/Week Comments Yes 6 (1 standard drink = 0.6 oz pure alcoho l) Alcohol Habits Answer Date Recorded How often do you have a drink containing 4 or more times a w [place] 02/05/2022 alcohol? How many drinks containing alcohol [...] or relatives? How often do you attend faith or More than 4 times per year 04/15/2021 baptist services? Do you belong to any clubs or Yes 02/05/2022 organizations such as faith groups, unions, fraternal or athletic groups, or [...] level of school Master's degree (e.g., Shakeel Cuelalr, [place], 03/28/2019 you have completed or the highest Doreen, MEd, [place]EN, EMELYN) degree you have received? Sex Assigned at Date Recorded Male 03/27/2018 8:35 PM CDT documented as of this encounter Miscellaneous Notes Addendum Note - Helio Taylor, L.P.N. - 04/04/2021 11:22 AM CDT Addended by: HELIO TAYLOR on: 04/21/2021 11:43 AM Modules accepted: Orders documented in this encounter Plan of Treatment Upcoming Encounters Date Type Specialty Care Team Description 07/22/2022 Office Visit Urology Alexy Yuan M .D. [address] [place] [phone] (Wo mehrdad) 07/22/2022 Appointment Radiation Oncology Sun Hope M.D., Ph.D. [address] [place] [phone] (Wo mehrdad) documented as of this encounter Visit Diagnoses Not on filedocumented in this encounter Care Teams Real Estate Underwriter Relationship Specialty Start Date End Date Kris Robles M.D., M.B.A. PCP - General Internal Medicine 01/15/21 02/25/[address] [phone] documented as of this encounter
--- OUTSIDE RECORDS SUMMARY | 2022-07-07 11:59 | XMS_ITS | Encounter Summary ---
:1945 Author Organization [facility] Address [address] [place] [address] Care Team Providers Name Role Phone Kris Robles M.D., M.B.A. Primary Care Provider [phone] Reason for Referral Outpatient (Routine) - Closed Specialty Diagnoses / Procedures Referred By Contact Refer [email or web address] To Contact Urology Diagnoses Elevated Prostate-Specific Antigen Kris Robles M.D., [facility] M.B.A. [address] [place] [address] Referral ID Status Reason Start Date Expiration Date Visits Requ ested Visits Authorized [id number] Closed 04/18/2021 04/18/2022 1 1 Reason for Visit Reason Comments Annual Exam labs completed prior to appt Appointment Request (Routine) - Closed Specialty Diagnoses / Procedures Referred By Contact Bita dey To Contact Family Medicine Referral ID Status Reason Start Date Expiration Date Visits Requ ested Visits Authorized [id number] Closed 02/18/2021 02/18/2022 1 1 Encounter Details Date Type Department Care Team Description 04/17/2021 Office Visit Department of Internal Sandoval Davalos, Pain Hip Left (Primary Dx); [place] in [place]., [facility] Prostate-Specific Antigen [place] M.B.A. [address] [place] [address] Social History Tobacco Use Types Packs/Day [...] or relatives? How often do you attend advent or More than 4 times per year 04/15/2021 taoism services? Do you belong to any clubs or Yes 02/05/2022 organizations such as advent groups, unions, fraternal or athletic groups, or [...] have completed or the highest Doreen, MEd, BOX STAMPER, EMELYN) degree you have received? Sex Assigned at Date Recorded Male 03/27/2018 8:35 PM CDT documented as of this encounter Last Filed Vital Signs Vital Sign Reading Time Taken Comments Blood Pressure 136/82 04/17/2021 8:19 AM manual CDT Pulse 68 04/17/2021 8:19 AM CDT Temperature 36.7 ??C (98.1 ??F) 04/17/2021 8:19 AM CDT Respiratory Rate 16 04/17/2021 8:19 AM CDT Oxygen Saturation - - Inhaled Oxygen Concentration - - Weight 83.4 kg (183 lb 13.8 oz) 04/17/2021 8:19 AM with shoes CDT Height 182 cm (5' 11.65) 04/17/2021 8:19 AM with shoes CDT Body Mass Index 25.18 04/17/2021 8:19 AM CDT documented in this encounter Patient Instructions Patient InstructionsAl Kris Davalos M.D., M.B.A. - 04/17/2021 8:30 AM CDT Continue with physical therapy for 3 weeks Take prednisone if no improvement of symptoms in 3 weeks. Call me back if no improvement 2 weeks after taking steroids Will consider doing MRI and referral for pain management documented in this encounter Progress Notes Kris Robles M.D., M.B.A. - 04/17/2021 8:30 AM CDT INTERNAL MEDICINE Progress note DATE OF EXAM 04/18/2021 LOCATION OF EXAM [facility] # CHIEF COMPLAINT/REASON FOR VISIT Chief Complaint Patient presents with ??? Annual Exam labs completed prior to appt # HISTORY OF PRESENT ILLNESS Dane [place] Jr. is a very pleasant 75 y.o.. Patient is here to follow-up on pain. This is recurrent and chronic. Left-sided. Localized. Sometimes worse with movement specially external rotation of the hip. No focal neurological deficit. Patient tried prednisone courses earlier in and that helped. Patient is known to have history of coronary artery disease, hyperlipidemia, osteoarthritis and essential hypertension-all chronic and stable-. # REVIEW OF SYSTEMS All other systems reviewed and negative except what is mentioned in HPI. I have reviewed the patient's past medical history, active problems, medications, allergies, and past social history. # PHYSICAL EXAMINATION Blood pressure 136/82, pulse 68, temperature 36.7 ??C, temperature source Temporal, resp. rate 16, height 182 cm, weight 83.4 kg. Body mass index is 25.18 kg/m??. GENERAL: 75 y.o. male year old , not in distress HEENT: head atraumatic, face symmetrical, pupils reactive to light CARDIOVASCULAR: No rubs or gallops. LUNGS: symmetrical air entry bilateral, no wheezes, no rhonchi, Musculoskeletal: Painful external rotation of left hip, no trochanteric bursa or femoral bursa pain.Power 5/5. NEUROLOGIC: no new gross focal neurological deficit # IMPRESSION/REPORT/PLAN : #1 Pain Hip Left Recurring pain, unchanged in nature, slightly improving, patient insists that prednisone has helped his symptoms earlier. I explained to the patient risk associated with recurrent use of prednisone-including high blood pressure, anxiety, bone and elevated blood glucose-. I suspect this is likelysoft tissue pathology-less likely to be originating from the hip joint-. I suggested sitting patientfor MRI of the hip. Patient preferred to try physical therapy for the next 3 weeks-instead of sending for imaging-. if no improvement of his symptoms patient will try another course of prednisone. If patient does not improved 2 weeks after he tries the prednisone, will consider referring for MRI and for orthopedic/pain management. I ordered prednisone for today. Elevated prostatic specific antigen Patient is being referred to Urology. His PSA level reviewed and trended. Patient is being in contact. - predniSONE (DELTASONE) 20 mg tablet; Multiple Dosages:Starting Senia 04/17/2021, Until Wed04/18/2021 [id number], THEN Starting 04/19/2021, Until 04/21/2021 at 2359, THEN Starting 04/22/2021, Until Thu04/24/2021 at 2359Take 2 tablets (40 mg total) by mouth daily for 2 days, THEN 1 tablet (20 mg total)daily for 3 days, THEN 0.5 tablets (10 mg total) daily for 3 days., Normal - [facility] office visit (clinic); Future; Expected date: 07/18/2021 Patient Education: Ready to learn, no apparent learning barriers were identified; learning preferences include listening. Explained diagnosis and treatment plan; patient/caregiver expressed understanding of the content. I spent 30 minutes in direct/indirect patient care. It is a pleasure participating in the care of Bill. Please let me know if I can be of further assistance. Kris Robles M.D., M.B.A., 04/18/21 Technical Healthcare Consultant Tobacco Shaker Department of Internal Medicine in [place], [place] [address] [address] Dept: [phone] documented in this encounter Plan of Treatment Upcoming Encounters Date Type Specialty Care Team Description 07/22/2022 Office Visit Urology Alexy Yuan M .D. [address] [place], [place] [phone] (Wo rk) 07/22/2022 Appointment Radiation Oncology Sun Hope M.D., Ph.D. [address] [place] [phone] (Wo rk) Scheduled Referrals Name Type Priority Associated Diagnoses Order S chedule Urology - Outpatient Referral Routine Elevated Expected : Other/benign - Prostate-Specific 04/18/20 21 prostate consult Antigen (Approximat e), (clinic) Expires: 04/18/2024 documented as of this encounter Visit Diagnoses Diagnosis Pain Hip Left - Primary Elevated Prostate-Specific Antigen documented in this encounter Care Teams Hard Rock Miner Blasting Relationship Specialty Start Date End Date Kris Robles M.D., M.B.A. PCP - General Internal Medicine 01/15/21 02/25/[address] [address] documented as of this encounter
--- OUTSIDE RECORDS SUMMARY | 2022-07-07 11:59 | XMS_ITS | Encounter Summary ---
:1945 Author Organization [facility] Address [address] [place] [address] Care Team Providers Name Role Phone Kris Robles M.D., M.B.A. Primary Care Provider [phone] Encounter Details Date Type Department Care Team Description 04/16/2021 Orders Only Department of Internal Kris Robles , Medicine in [place], M.B. A. [place] [address] [place] [phone] (Wo rk) Social History Tobacco Use Types Packs/Day Years Used Date Smoking Tobacco: Never Smokeless Tobacco: Never Alcohol Use Standard Drinks/Week Comments Yes 6 (1 standard drink = 0.6 oz pure alcoho l) Alcohol Habits Answer Date Recorded How often do you have a drink containing 4 or more times a w [place] 02/05/2022 alcohol? How many drinks containing alcohol [...] More than 4 times per year 04/15/2021 latter day services? Do you belong to any clubs [...] have completed or the highest Doreen, MEd, COLD STORAGE SUPERINTENDENT, EMELYN) degree you have received? Sex Assigned at Date Recorded Male 03/27/2018 8:35 PM CDT documented as of this encounter Plan of Treatment Upcoming Encounters Date Type Specialty Care Team Description 07/22/2022 Office Visit Urology Alexy Yuan M .D. [address] [place], [place] [phone] (Wo mehrdad) 07/22/2022 Appointment Radiation Oncology Sun Hope M.D., Ph.D. [address] [place], [place] [phone] (Wo rk) documented as of this encounter Visit Diagnoses Not on filedocumented in this encounter Care Teams Administrative Underwriter Relationship Specialty Start Date End Date Kris Robles M.D., M.B.A. PCP - General Internal Medicine 01/15/21 02/25/22 [address] [place] [address] documented as of this encounter
--- OUTSIDE RECORDS SUMMARY | 2022-07-07 11:59 | XMS_ITS | Encounter Summary ---
:1945 Author Organization [facility] Address [address] [place] [address] Care Team Providers Name Role Phone Kris Robles M.D., M.B.A. Primary Care Provider [phone] Reason for Visit Reason Comments Hip Pain States Left total hip 18 mon ths ago, states he was told in [place] that he has bursitis. He states his Ortho DrJulian in [place] is out on vacation and when he gets back he is thin roberto of an injection for that hip. He states he wants something for pain tod ay, as he states that is all he is here for. Appointment Request (Routine) - Closed Specialty Diagnoses / Procedures Referred By Contact Refer red To Contact Community [facility] Referral ID Status Reason Start Date Expiration Date Visits Requ ested Visits Authorized [id number] Closed 03/10/2021 03/10/2022 1 1 Encounter Details Date Type Department Care Team Description 03/11/2021 Office Visit Department of [facility] Jewel Kapoor Pain Hip Left (Primary Medicine, July AmandaBJulianSJulian, Dx) Clinic, in [place] [address] [facility] [address] [place] [phone] Social History Tobacco Use Types Packs/Day Years Used Date Smoking Tobacco: Never Smokeless Tobacco: Never Alcohol Use Standard Drinks/Week Comments Yes 6 (1 standard drink = 0.6 oz pure alcoho l) Alcohol Habits Answer Date Recorded How often do you have a drink containing 4 or more times a w [email or web address] 02/05/2022 alcohol? How many drinks containing alcohol [...] More than 4 times per year 04/15/2021 oriental orthodox services? Do you belong to any [...] have completed or the highest Doreen, MEd, POLITICAL ANALYST, EMELYN) degree you have received? Sex Assigned at Date Recorded Male 03/27/2018 8:35 PM CDT documented as of this encounter Last Filed Vital Signs Vital Sign Reading Time Taken Comments Blood Pressure 112/55 03/11/2021 7:36 AM CDT Pulse 85 03/11/2021 7:36 AM CDT Temperature 36.3 ??C (97.3 ??F) 03/11/2021 7:36 AM CDT Respiratory Rate 18 03/11/2021 7:36 AM CDT Oxygen Saturation 99% 03/11/2021 7:36 AM CDT Inhaled Oxygen Concentration - - Weight 81.4 kg (179 lb 7.3 oz) 03/11/2021 7:36 AM CDT Height 182.1 cm (5' 11.69) 03/11/2021 7:36 AM CDT Body Mass Index 24.55 03/11/2021 7:36 AM CDT documented in this encounter Patient Instructions Patient InstructionsJewel Kapoor M.B.B.S., M.D. - 03/11/2021 7:45 AM CDT Managing Hip Pain 1. Use warm compresses, heating pads and warm baths 2. Please ambulate with your walker 3. Use muscle relaxants every evening. This can make you sleepy so do not drive or operate heavy machinery after taking this 4. Use prednisone daily for 5 days 5. Do not use oxycodone more than once a day before exercising. Watch out for constipation on this medication 6. Try to replace some walking with water aerobics documented in this encounter Progress Notes Jewel Kapoor M.B.B.S., M.D. - 03/11/2021 7:45 AM CDT SUBJECTIVE CHIEF COMPLAINT / REASON FOR VISIT Dane [place] Jr. is a 75 y.o. male who presents for evaluation of Hip Pain (States Left total hip 18 months ago, states he was told in [place] that he has bursitis. He states his Ortho DrJulian in [place] is out on vacation and when he gets back he is thinking of an injection for that hip. He states he wants something for pain today, as he states that is all he is here for.). HISTORY OF PRESENT ILLNESS Dane [place] Jr. is a 75-year-old male with a history of osteoarthritis status post left hip replacement 16 months ago. He is here with persistent left hip pain. Patient was doing well following surgery with increase physical activity. He plays golf 2 to 3 timesa week at baseline. He has had a persistent radiating pain in his left hip. He followed up with his orthopedic surgeon will diagnosed with left hip contact bursitis and iliopsoas bursitis. MRI showed multilevel spondylitic changes with no high-grade spinal canal narrowing. He has tried to manage his discomfort with Tylenol, ibuprofen and physical therapy. He feels uncomfortable using NSAIDs as he has a history of coronary artery disease status post stent placement 4 years ago. Pain relief with current treatment plan has been adequate. However he is not using a walker and noticed some relief with warm showers. He denies any numbness or tingling in his extremities. He denies any weakness in his legs. He deniessaddle anesthesia. He has had no urinary or fecal incontinence. The following portions of the patient's history were reviewed and updated as appropriate: allergies,current medications, family history, medical history, social history, surgical history and problem list. REVIEW OF SYSTEMS Pertinent items are noted in HPI. OBJECTIVE BP 112/55 (BP Location: Left arm, Patient Position: Sitting, Cuff Size: Large) Pulse 85 Temp 36.3 ??C (Temporal) Resp 18 Ht 182.1 cm Wt 81.4 kg SpO2 99% BMI 24.55 kg/m?? PHYSICAL EXAM General Appearance: healthy, alert, no distress, cooperative. Skin: skin color, texture, turgor normal, no suspicious rashes or lesions. Head: normocephalic, no masses, lesions, tenderness or abnormalities. Eyes: Anicteric sclera. Pupils are equally round and reactive to light. Extraocular movements are intact. . Back:no pain to palpation of vertebrae, good flexion and extension, good range of motion Musculoskeletal: Significant discomfort with flexion and external rotation of the left hip. Negativestraight leg test. Neurologic: Antalgic gait. Reflexes normal and symmetric. Sensation grossly intact.. ASSESSMENT / PLAN #1 Pain Hip Left 75-year-old male with left hip pain. I would recommend he continues with physical therapy. I have started him on a 5 day course of prednisone. Patient should avoid oral NSAIDs. I prescribed diclofenac gel for him as well. He may also continue with Tylenol and do his stretching exercises. I have also recommended warm compresses and water aerobics. I have also given him 7 tablets of oxycodone to help with pain relief so he can continue with physical therapy. We discussed the possible side effects of opioids and we have a management plan for these. He would also benefit from a muscle relaxant which I have provided as well. documented in this encounter Plan of Treatment Upcoming Encounters Date Type Specialty Care Team Description 07/22/2022 Office Visit Urology Alexy Yuan M .D. [address] [place], [place] [phone] (Wo rk) 07/22/2022 Appointment Radiation Oncology Sun Hope M.D., Ph.D. [address] [place], [place] [phone] (Wo rk) documented as of this encounter Visit Diagnoses Diagnosis Pain Hip Left - Primary documented in this encounter Care Teams Rodent Control Worker Relationship Specialty Start Date End Date Kris Robles M.D., M.B.A. PCP - General Internal Medicine 01/15/21 02/25/[address] [phone] documented as of this encounter
--- OUTSIDE RECORDS SUMMARY | 2022-07-07 11:59 | XMS_ITS | Encounter Summary ---
:1945 Author Organization [facility] Address [address] [place] [address] Care Team Providers Name Role Phone Kris Robles M.D., M.B.A. Primary Care Provider [phone] Encounter Details Date Type Department Care Team Description 03/03/2021 Hospital Encounter Department of Radiology, KathleenMax, Pain Back [facility], in [place], [place] [address] [facility] [address] [place] [address] [phone] Social History Tobacco Use Types Packs/Day Years [...] More than 4 times per year 04/15/2021 spiritism services? Do you belong to any clubs [...] completed or the highest Doreen, MEd, FIELD REVIEWER, EMELYN) degree you have received? Sex Assigned [...] if chest pain continues. atorvastatin (LIPITOR) 80 Take 1 tablet (80 mg 90 tablet 3 04/16/2020 05/02/2021 mg tabletIndications: total) by mouth Coronary Artery Disease daily. Without Angina Pectoris, Hyperlipidemia CHOLECALCIFEROL, VITAMIN Take 1 capsule by 0 03/201603/14/2021 D3, ORAL mouth daily. Dose unknown losartan (COZAAR) 50 mg Take 1 tablet [...] Urology Alexy Yuan M .D. [address] [place], [place] [phone] (Meir cronin) 07/22/2022 Appointment Radiation Oncology Sun Hope M.D., Ph.D. [address] [place], [place] [phone] (Meir rk) documented as of this encounter Procedures Procedure Name Priority Date/Time Associated Comments Diagnosis DX LUMBAR SPINE RAD - Routine 03/03/2021 8:12 Pain Back Results for this 4+ VIEWS (most inpatients AM CDT procedure a re in and all the results outpatients) section. documented in this encounter Results DX Lumbar Spine 4+ Views (03/03/2021 8:12 AM CDT) Anatomical Region Laterality Modality Lumbar Spine, Musculoskeletal RST LOS, Neuroradiology N/A Digital Radiography ARZ LOS, Muskuloskeletal FLA LOS Specimen (Source) Anatomical Collection Method Collection Time Re ceived Time Location / / Volume Laterality 03/03/2021 8:29 AM CDT Impressions 03/03/2021 8:30 AM CDT Lumbar facet arthritis. Degenerative disk disease at the L4 interspace. Mild degenerative narrowing of the L2 and L3 interspaces. Hypertrophic changes. No instability on flexion or extension. Abdominal aortic calcification. Left ANALIA. Narrative 03/03/2021 8:30 AM CDT EXAM: ??DX LUMBAR SPINE 4+ VIEWS Procedure Note Ervin Arredondo M.D. - 03/03/2021Forma tting of this note might be different from the original. EXAM: DX LUMBAR SPINE 4+ VIEWS IMPRESSION: Lumbar facet arthritis. Degenerative dis k disease at the L4 interspace. Mild degenerative narrowing of the L2 and L3 interspaces. Hypertrophic changes. No instability on flexion or extension. Abdominal aortic calcification. Left ANALIA. John Encarnacion M.D. [facility] PROCE MANUEL documented in this encounter Visit Diagnoses Diagnosis Pain Back documented in this encounter Care Teams Private Eye Relationship Specialty Start Date End Date Kris Robles M.D., M.B.A. PCP - General Internal Medicine 01/15/21 02/25/[address] [phone] documented as of this encounter
--- OUTSIDE RECORDS SUMMARY | 2022-07-07 11:59 | XMS_ITS | Encounter Summary ---
:1945 Author Organization [facility] Address [address] [place] [address] Care Team Providers Name Role Phone Kris Robles M.D., M.B.A. Primary Care Provider [phone] Encounter Details Date Type Department Care Team Description 02/27/2021 Orders Only Department of Isaura Haas Pain Bac k (Primary Dx) Orthopedic Surgery in [place], [place] [address] [facility] [address] [place] [phone] Social History Tobacco Use Types Packs/Day Years Used Date Smoking Tobacco: Never Smokeless Tobacco: Never Alcohol Use Standard Drinks/Week Comments Yes 6 (1 standard drink = 0.6 oz pure alcoho l) Alcohol Habits Answer Date Recorded How often do you have a drink containing 4 or more times a w [place] 02/05/2022 alcohol? How many drinks containing alcohol [...] get together with friends Three times a werafiq k 02/05/2022 or relatives? How often do you attend cheondoism or More than 4 times per year 04/15/2021 scientology services? Do you belong to any clubs [...] completed or the highest Doreen, MEd, SENIOR CARE ASSISTANT, EMELYN) degree you have received? Sex Assigned at Date Recorded Male 03/27/2018 8:35 PM CDT documented as of this encounter Plan of Treatment Upcoming Encounters Date Type Specialty Care Team Description 07/22/2022 Office Visit Urology Alexy Yuan M .D. [address] [place] [phone] (Meir cronin) 07/22/2022 Appointment Radiation Oncology Sun Hope M.D., Ph.D. [address] [place] [phone] (Meir cronin) documented as of this encounter Results DX Lumbar Spine 4+ [...] Visit Diagnoses Diagnosis Pain Back - Primary Pain Back documented in this encounter Care Teams Maple Syrup Maker Relationship Specialty Start Date End Date Kris Robles M.D., M.B.A. PCP - General Internal Medicine 01/15/21 02/25/[address] [phone] documented as of this encounter
--- OUTSIDE RECORDS SUMMARY | 2022-07-07 11:59 | XMS_ITS | Encounter Summary ---
:1945 Author Organization [facility] Address [address] [place] [address] Care Team Providers Name Role Phone Kris Martines M.D., M.B.A. Primary Care Provider [phone] Reason for Referral Outpatient (Routine) - Closed Specialty Diagnoses / Procedures Referred By Contact Refer red To Contact Diagnoses Cyst Renal Kris Martines M.D., [facility] Procedures US Kidneys Bilateral with Bladder US Abdomen Complete M.B.A. [address] [place] [address] Referral ID Status Reason Start Date Expiration Date Visits Requ ested Visits Authorized [id number] Closed 03/10/2021 03/10/2022 1 1 Encounter Details Date Type Department Care Team Description 03/07/2021 Clinical Communication Department of Internal Sandoval Davalos , Medicine in [place] M[place]D., [place] M.B.A. [address] [place] [address] [place], [place] [phone] [address] Social History Tobacco Use Types Packs/Day Years Used Date Smoking Tobacco: Never Smokeless Tobacco: Never Alcohol Use Standard Drinks/Week Comments Yes 6 (1 standard drink = 0.6 oz pure alcoho l) Alcohol Habits Answer Date Recorded How often do you have a drink containing 4 or more times a w [place] 02/05/2022 alcohol? How many drinks containing alcohol [...] or relatives? How often do you attend sabianist or More than 4 times per year 04/15/2021 denominational services? 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 Sex Assigned at Date Recorded Male 03/27/2018 8:35 PM CDT documented as of this encounter Miscellaneous Notes Telephone Encounter - Ale Taylor, L.P.N. - 03/10/2021 8:50 AM CDT SUBJECTIVE CHIEF COMPLAINT / REASON FOR CALL No chief complaint on file. Information Discussed Patient given advisement from dr martines and is scheduled with dr cavazos at [facility] on 03/11/2021 for hip pain evaluation PLAN Disposition/Recommendation: self-care is appropriate at this time, patient encouraged to call back with questions Information/Education: patient/caller able to teach back Caller agreeable to plan of care: yes The following references were used: provider dr martines Telephone Encounter - Kris Martines M.D., M.B.A. - 03/10/2021 8:41 AM CDT I ordered ultrasound of the abdomen. For pain, patient needs to be evaluated in person. Thank you Telephone Encounter - Ale Taylor L.P.N. - 03/10/2021 8:03 AM CDT SUBJECTIVE CHIEF COMPLAINT / REASON FOR CALL No chief complaint on file. Information Discussed Patient returned call and stated The most pressing issus at this time is acute pain in my left hipradiating down my leg. I have been going to physical therapy as directed and that is making the painworse. The pain is so bad I can't sleep and I am taking 4000mg tylenol a day because I was told because of my heart issue I can not use ibuprofen or take prednisone. The tylenol is not touching the pain, and I would like to know if I can take something stronger then tylenol. I have an appt tomorrow [place] but I am not comfortable with that. I have stints placed and I also have a history of bursitis that I previously received injections for. I [place] want injections completed in [place] . Can the Dr please call me at [phone] so I can actually explain this to him. 1) can I get a recommendation on the pain? 2) yes I want a ultrasound of the abdomen for the kidney cyst and to have it done in [place] if possible PLAN Disposition/Recommendation: notified provider and awaiting recommendations Information/Education: patient/caller able to teach back Caller agreeable to plan of care: yes The following references were used: provider dr martines Telephone Encounter - Kris Martines M.D., M.B.A. - 03/07/2021 5:01 PM CDT I reviewed his MRI of the back-I assume that this is what the patient was referring to-. It does notshow liver lesion, instead it shows a kidney cyst. I usually do an ultrasound of both the kidney andliver to better evaluate the condition. If patient is interested I can send him for ultrasound of his abdomen. We can take it from there after that. Telephone Encounter - Elisa Pablo - 03/07/2021 4:06 PM CDT Reason for Communication: Patient called to inform Dr. Martines before his appointment on 04-17 thathe had an MRI done in [place] on 03-06. Patient would like a call back as a lesion on his liver was found and he is concerned. Would like to know what Dr. Martines thinks. Current Can Nursing/Provider leave a detailed message?: Yes Did the patient refuse triage through Nurse line? (for symptom based concerns): Action Needed: Please call patient back Name of Medication (if relevant): documented in this encounter Plan of Treatment Upcoming Encounters Date Type Specialty Care Team Description 07/22/2022 Office Visit Urology Alexy Yuan M .D. [address] [place] [address] [phone] (Meir cronin) 07/22/2022 Appointment Radiation Oncology Sun Hope M.D., Ph.D. [address] [place] [address] [phone] (Wo rk) documented as of this encounter Results US Kidneys Bilateral with Bladder (03/18/2021 4:36 PM CDT) Anatomical Region Laterality Modality Abdomen, Renal, Ultrasound RST LOS, Ultrasound ARZ LOS, Bila teral Ultrasound Ultrasound FLA LOS Specimen (Source) Anatomical Collection Method Collection Time Re ceived Time Location / / Volume Laterality 03/18/2021 4:43 PM CDT Impressions 03/18/2021 4:44 PM CDT 16 cm anechoic left renal cyst without suspicious features corresponds to the finding on MRI. Narrative 03/18/2021 4:44 PM CDT EXAM: US KIDNEYS BILATERAL WITH BLADDER COMPARISON: None FINDINGS: Right kidney: 11.3 cm Cortical thickness: Normal. ?? Parenchymal echogenicity: Normal. Collecting system: No hydronephrosis. Masses: None detected. Left kidney: 11.3 cm Cortical thickness: Normal. ?? Parenchymal echogenicity: Normal. Collecting system: No hydronephrosis. Masses: Corresponding to the finding on MRI, large anechoic cyst measuring up to approximately 12.4 x 16.4 x 12.2 cm with out suspicious features. Bladder: Decompressed Procedure Note David Angulo M.D. - 03/18/2021Formattin g of this note might be different from the original. EXAM: US KIDNEYS BILATERAL WITH BLADDER COMPARISON: None FINDINGS: Right kidney: 11.3 cm Cortical thickness: Normal. Parenchymal echogenicity: Normal. Collecting system: No hydronephrosis. Masses: None detected. Left kidney: 11.3 cm Cortical thickness: Normal. Parenchymal echogenicity: Normal. Collecting system: No hydronephrosis. Masses: Corresponding to the finding on MRI, large anechoic cyst measuring up to approximately 12.4 x 16.4 x 12.2 cm with out suspicious features. Bladder: Decompressed IMPRESSION: 16 cm anechoic left renal cyst without s uspicious features corresponds to the finding on MRI. Kris Martines M.D., M.B.A. IMG US PROCEDURES documented in this encounter Visit Diagnoses Diagnosis Cyst Renal - Primary Cyst Renal documented in this encounter Care Teams Driver Examiner Relationship Specialty Start Date End Date Kris Martines M.D., M.B.A. PCP - General Internal Medicine 01/15/21 02/25/[address] [address] documented as of this encounter
--- OUTSIDE RECORDS SUMMARY | 2022-07-07 11:59 | XMS_ITS | Encounter Summary ---
:1945 Author Organization [facility] Address [address] [place] [address] Care Team Providers Name Role Phone Kris Robles M.D., M.B.A. Primary Care Provider [phone] Reason for Referral MRI/CAT/PET Scan (Routine) - Closed Specialty Diagnoses / Procedures Referred By Contact Refer red To Contact Radiology Diagnoses Pain Low Back Unspecified Lise Staples M.D. [facility] Procedures MR Lumbar Spine without IV Contrast [address] [place] [address] Referral ID Status Reason Start Date Expiration Date Visits Requ ested Visits Authorized [id number] Closed 03/03/2021 03/03/2022 1 1 Reason for Visit MRI/CAT/PET Scan (Routine) - Closed Specialty Diagnoses / Procedures Referred By Contact Refer red To Contact Radiology Diagnoses Pain Low Back Unspecified Lise Staples M.D. [facility] Procedures MR Lumbar Spine without IV Contrast [address] [place] [address] Referral ID Status Reason Start Date Expiration Date Visits Requ ested Visits Authorized [id number] Closed 03/03/2021 03/03/2022 1 1 Encounter Details Date Type Department Care Team Description 03/06/2021 Hospital Encounter Department of Lise Staples P ain Low Back Radiology, Silvestre De Leon, in [place], [address] [place], [place] [address] [facility] [address] [place], [place] [phone] (Wo rk) [phone] Social History Tobacco Use Types Packs/Day Years Used Date Smoking Tobacco: Never Smokeless Tobacco: Never Alcohol Use Standard Drinks/Week Comments Yes 6 (1 standard drink = 0.6 oz pure alcoho l) Alcohol Habits Answer Date Recorded How often do you have a drink containing 4 or more times a w [place] 02/05/2022 alcohol? How many drinks containing alcohol [...] or relatives? How often do you attend baptism or More than 4 times per year 04/15/2021 congregational services? 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 Sex [...] Urology Alexy Yuan M .D. [address] [place], [place] [phone] (Meir cronin) 07/22/2022 Appointment Radiation Oncology Sun Hope M.D., Ph.D. [address] [place], [place] [phone] (Meir cronin) documented as of this encounter Procedures Procedure Name Priority Date/Time Associated Comments Diagnosis MR LUMBAR SPINE RAD - Routine 03/06/2021 4:32 Pain Low Back Results for this WITHOUT IV (most inpatients PM CDT procedure a re in CONTRAST and all the results outpatients) section. documented in this encounter Results MR Lumbar Spine without IV Contrast (03/06/2021 4:32 PM CDT) Anatomical Region Laterality Modality Lumbar Spine, Neuroradiology RST LOS, Neuroradiology N/A Magnetic Resonance ARZ [facility], Neuroradiology FLA [facility] Specimen (Source) Anatomical Collection Method Collection Time [...] in this encounter Visit Diagnoses Diagnosis Pain Low Back Unspecified documented in this encounter Care Teams Supervisor Irrigation Relationship Specialty Start Date End Date Kris Robles M.D., M.B.A. PCP - General Internal Medicine 01/15/21 02/25/[address] [address] documented as of this encounter
--- OUTSIDE RECORDS SUMMARY | 2022-07-07 11:59 | XMS_ITS | Encounter Summary ---
:1945 Author Organization [facility] Address [address] [place] [address] Care Team Providers Name Role Phone Kris Robles M.D., M.B.A. Primary Care Provider [phone] Encounter Details Date Type Department Care Team Description 04/10/2021 Hospital Encounter Department of Christ Robles Essential Primary; Laboratory Medicine Kris, Coronary Artery Disease Without Angina Pectoris; augusta Foreman M.D., M.B.A. Hyperlipidemia; [place] [address] Encounter For Screening For Other Viral Diseases (COVID-19) [address] [place] [phone] Social History Tobacco Use Types Packs/Day Years Used Date Smoking Tobacco: Never Smokeless Tobacco: Never Alcohol Use Standard Drinks/Week Comments Yes 6 (1 standard drink = 0.6 oz pure alcoho l) Alcohol Habits Answer Date Recorded How often do you have a drink containing 4 or more times a w [place] 02/05/2022 alcohol? 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 Sex [...] Disease Without Angina Pectoris, Hypertension Essential Primary predniSONE (DELTASONE) 20 Take 2 tablets (40 10 tablet 0 04/17/2021 mg tabletIndications: mg total) by mouth Pain Hip Left daily. predniSONE (DELTASONE) 20 Take 3 tabs (60 mg) 18 tablet 0 0 03/18/2021 04/17/2021 mg tablet daily for 3 days, then take 2 tabs (40 mg) daily for 3 days, then take 1 tab (20 mg) daily for 3 days. documented as of this encounter Plan of Treatment Upcoming Encounters Date Type Specialty Care Team Description 07/22/2022 Office Visit Urology Alexy Yuan M .D. [address] [place] [address] [phone] (Meir cronin) 07/22/2022 Appointment Radiation Oncology Sun Hope M.D., Ph.D. [address] [place] [address] [phone] (Meir cronin) documented as of this encounter Procedures Procedure Name Priority Date/Time Associated Diagnosis Comme nts FL REF SARS-COV2 Routine 04/10/2021 8:18 Encounter For Results for this NEUTRALIZING AB AM CDT Screening For Other proce dure are in TITER Viral Diseases the results (COVID-19) section. SARS-COV-2 SPIKE AB, Routine 04/10/2021 8:18 Encounter For Res ults for this SEMI-QUANT, S AM CDT Screening For Other procedu re are in Viral Diseases the results (COVID-19) section. LIPID PANEL, S Routine 04/10/2021 8:18 Hyperlipidemia Results for this AM CDT procedure are i n the results section. THYROID FUNCTION Routine 04/10/2021 8:18 Hypertension Essentia l Results for this CASCADE, S AM CDT Primary procedure are in Coronary Artery the results Disease Without Angina secti on. Pectoris Hyperlipidemia CBC WITHOUT Routine 04/10/2021 8:18 Hypertension Essential Re sults for this DIFFERENTIAL, B AM CDT Primary procedure ar e in the results section. BASIC METABOLIC Routine 04/10/2021 8:18 Hypertension Essential Results for this PANEL, S/P AM CDT Primary procedure are in Coronary Artery the results Disease Without Angina secti on. Pectoris documented in this encounter Results SARS-CoV-2 Neutralizing Antibody - Sent Out Lab (04/10/2021 8:18 AM CDT) [facility] Method Time Signature SARS-CoV-2 SEE COMMENT 04/18/2021 VYRI Neutralizing 10:02 AM CDT Antibody Comment: For final report, select Lab-Send Out L ab Results hyperlink below. Specimen Anatomical Collection Method Collection Time Receive d Time (Source) Location / / Volume Laterality Blood (Blood, 04/10/2021 8:18 AM 04/11/20 9:51 Venous) CDT AM CDT Narrative This result has an attachment that is no t available. Kris Robles M.D., M.B.A. LAB MICROBIOLOGY - BLOO D ORDERABLES Performing Organization Address City/State/ZIP Code Phon e Number [employer] [address] [facility], [facility] [address] [address] [employer] [place] [address] ,[facility] 110 (ABNORMAL) SARS-CoV-2 Bakari Ab, Semi-Quant, S (04/10/2021 8:18 AM CDT) [facility] Method Time Signature SARS-CoV-2 Positive (A) Negative 04/12/2021 SDSC Bakari Ab, 2:58 PM CDT Interp, S Comment: Antibodies to the SARS-CoV-2 spike glyco protein detected. These results suggest recent o r prior SARS-CoV-2 infection and/or vaccination. No minimum antibody level or threshold has been est ablished to indicate long-term protective immunity a gainst re-infection. Correlation with epidemiol ogic risk factors and other clinical and laborator y findings is recommended. Serologic results should no t be used to diagnose recent SARS-CoV-2 infection. Fa lse-positive results for IgG antibodies may occur due to cross- reactivity from pre-existing antibodies or other possible causes. SARS-CoV-2 Bakari Ab, Quant, S >250 (H) <0.80 U/mL 2:58 PM CDT [facility] Comment: ----ADDITIONAL INFORMATION---- Testing was performed using the [employer] El ecsys Anti-SARS- CoV-2 S Reagent assay from [employer], which has received Emergency Use Authorization (EU A) by the U.S. Food and Drug Administration. Fact sheets for this Emergency Use Autho rization (EUA) assay can be found at the following link s: For Healthcare Providers: https://www.fda.gov/media/490021/downloa d For Patients: https://www.fda.gov/media/401417/downloa d Specimen Anatomical Collection Method Collection Time Receive d Time (Source) Location / / Volume Laterality Blood (Blood, 04/10/2021 8:18 AM 04/11/20 Venous) CDT 10:26 PM CDT Kirs Robles M.D., M.B.A. LAB MICROBIOLOGY - BLOO D ORDERABLES Performing Organization Address City/State/ZIP Code Phon e Number [facility] [address] [place] [address] SUPPORT CENTER [facility] [place] [address] Laboratory Medicine and Pathology [address] [place] Thyroid Function [place] (04/10/2021 8:18 AM CDT) athologist Signature TSH, Sensitive 1.4 0.3 - 4.2 04/10/2021 [place] mIU/L 11:10 AM CDT Specimen Anatomical Collection Method Collection Time Receive d Time (Source) Location / / Volume Laterality Blood (Blood, 04/10/2021 8:18 AM 04/10/20 Venous) CDT 10:23 AM CDT Kris Robles M.D., M.B.A. LAB BLOOD ADD-ON Performing Organization Address City/State/ZIP Code Phon e Number [facility] [address] [place] [address] [place] [address] System in [place] [address] [facility] Lipid Panel (04/10/2021 8:18 AM CDT) P athologist Signature Cholesterol, 129 mg/dL 04/10/2021 [facility] Total 11:03 AM CDT Comment: ----REFERENCE VALUE---- Desirable: < 200 Borderline high: 200 - 239 High: > or = 240 Triglycerides 93 mg/dL 04/10/2021 11:03 AM CDT OW AT Comment: ----REFERENCE VALUE---- Normal: <150 Borderline high: 150-199 High: 200-499 Very high: > or =500 Cholesterol, HDL 41 >=40 mg/dL 04/10/2021 11:03 AM CD T [place] Calculated LDL 69 mg/dL 04/10/2021 11:03 AM CDT O GARTH Comment: ----REFERENCE VALUE---- Desirable: <100 Above Desirable: 100-129 Borderline high: 130-159 High: 160-189 Very high: > or =190 Cholesterol, Non-HDL, Calculated 88 mg/dL 021 11:03 AM CDT OW[facility] Comment: ----REFERENCE VALUE---- Desirable: <130 Above Desirable: 130-159 Borderline high: 160-189 High: 190-219 Very high: > or =220 Specimen Anatomical Collection Method Collection Time Receive d Time (Source) Location / / Volume Laterality Blood (Blood, 04/10/2021 8:18 AM 04/10/20 21 Venous) CDT 10:23 AM CDT Kris Robles M.D., M.B.A. LAB BLOOD ADD-ON Performing Organization Address City/State/ZIP Code Phon e Number [facility] [address] [place] [address] [place] [address] System in [place] [address] [facility] Basic Metabolic Panel (04/10/2021 8:18 AM CDT) P athologist Signature Potassium, P 4.5 3.6 - 5.2 04/10/2021 [place] mmol/L 11:03 AM CDT Sodium, P 140 135 - 145 04/10/2021 [place] mmol/L 11:03 AM CDT Chloride, P 103 98 - 107 04/10/2021 [place] mmol/L 11:03 AM CDT Bicarbonate, P 28 22 - 29 04/10/2021 [place] mmol/L 11:03 AM CDT Anion Gap, P 9 7 - 15 04/10/2021 [place] 11:03 AM CDT BUN (Blood Urea 19 8 - 24 04/10/2021 [place] Nitrogen), P mg/dL 11:03 AM CDT Creatinine 0.84 0.74 - 04/10/2021 [place] 1.35 mg/dL 11:03 AM CDT eGFR-Black/Afric >90 >=60 04/10/2021 [place] an [place]amanian mL/min/BSA 11:03 AM CDT Comment: ----ADDITIONAL INFORMATION---- Estimated GFR calculated using the 2009 CKD_EPI creatinine equation. eGFR Non-Black/ 86 >=60 mL/min/BSA 04/10/2021 11:03 AM CDT [facility] Comment: ----ADDITIONAL INFORMATION---- Estimated GFR calculated using the 2009 CKD_EPI creatinine equation. Calcium, Total, P 9.4 8.8 - 10.2 mg/dL 04/10/2021 11:0 3 AM CDT [place] Glucose, P 116 70 - 140 mg/dL 04/10/2021 11:03 AM CDT [place] Specimen Anatomical Collection Method Collection Time Receive d Time (Source) Location / / Volume Laterality Blood (Blood, 04/10/2021 8:18 AM 04/10/20 21 Venous) CDT 10:23 AM CDT Kris Robles M.D., M.B.A. LAB BLOOD ADD-ON Performing Organization Address City/State/ZIP Code Phon e Number [facility] [address] [place] [address] [place] [address] System in [place] [address] CBC without Differential (04/10/2021 8:18 AM CDT) P athologist Signature Hemoglobin 14.9 13.2 - 04/10/2021 FB60 16.6 g/dL 9:14 AM CDT Hematocrit 45.0 38.3 - 04/10/2021 FB60 48.6 % 9:14 AM CDT Erythrocytes 4.81 4.35 - 04/10/2021 FB60 5.65 9:14 AM CDT x10(12)/L MCV 93.6 78.2 - 04/10/2021 FB60 97.9 fL 9:14 AM CDT RBC Distrib Width 14.5 11.8 - 04/10/2021 FB60 14.5 % 9:14 AM CDT Platelet Count 213 135 - 317 04/10/2021 FB60 x10(9)/L 9:14 AM CDT Leukocytes 8.3 3.4 - 9.6 04/10/2021 FB60 x10(9)/L 9:14 AM CDT Specimen Anatomical Collection Method Collection Time Receive d Time (Source) Location / / Volume Laterality Blood (Blood, 04/10/2021 8:18 AM 04/10/20 8:19 Venous) CDT AM CDT Kris Robles M.D., M.B.A. LAB BLOOD ADD-ON Performing Organization Address City/State/ZIP Code Phon e Number [place] [address] [place] [address] [facility] [address] [place] [address] System in [address] documented in this encounter Visit Diagnoses Diagnosis Hypertension Essential Primary Coronary Artery Disease Without Angina P ectoris Hyperlipidemia Encounter For Screening For Other Viral Diseases (COVID-19) documented in this encounter Care Teams Manager Workers Compensation Relationship Specialty Start Date End Date Kris Robles M.D., M.B.A. PCP - General Internal Medicine 01/15/21 02/25/[address] [place] [address] documented as of this encounter
--- OUTSIDE RECORDS SUMMARY | 2022-07-07 11:59 | XMS_ITS | Encounter Summary ---
:1945 Author Organization [facility] Address [address] [place] [address] Care Team Providers Name Role Phone Kris Robles M.D., M.B.A. Primary Care Provider [phone] Reason for Visit Reason Comments Communication return call Encounter Details Date Type Department Care Team Description 03/11/2021 Clinical Communication Department of Frank Kapoor (return Family Medicine, Jewel Weber, call) [facility] [place] [address] [phone] Social History Tobacco Use Types Packs/Day Years Used Date Smoking Tobacco: Never Smokeless Tobacco: Never Alcohol Use Standard Drinks/Week Comments Yes 6 (1 standard drink = 0.6 oz pure alcoho l) Alcohol Habits Answer Date Recorded How often do you have a drink containing 4 or more times a w [place] 02/05/2022 alcohol? How many drinks containing alcohol [...] or relatives? How often do you attend mandaeism or More than 4 times per year 04/15/2021 jain services? Do you belong to any clubs or Yes 02/05/2022 organizations such as mandaeism groups, unions, fraternal or athletic groups, or [...] have completed or the highest Doreen, MEd, OPTICAL MANAGER, EMELYN) degree you have received? Sex Assigned at Date Recorded Male 03/27/2018 8:35 PM CDT documented as of this encounter Miscellaneous Notes Telephone Encounter - Jolanta Teixeira, L.P.N. - 03/11/2021 1:20 PM CDT SUBJECTIVE CHIEF COMPLAINT / REASON FOR CALL Communication (return call) PLAN The following information was provided: Notified that flexeril and valtaren were sent to prior auth for approval. Stated he will contact hisinsurance to try to expedite process. Information/Education: patient/caller able to teach back The following references were used: provider Dr. Kapoor Telephone Encounter - Sara Sanchez - 03/11/2021 12:19 PM CDT Reason for Communication: Patient called returning your call Current Can Nursing/Provider leave a detailed message?: yes Did the patient refuse triage through Nurse line? (for symptom based concerns): Action Needed: please call again Name of Medication (if relevant): Telephone Encounter - Betty Machuca - 03/11/2021 11:55 AM CDT Left message for patient to return our call. ?? Does the patient need to speak to nursing? Yes ?? Action needed: Patient needs to be informed we are waiting on prior authorization for the cyclobenzaprine (Flexeril) before it can be sent through to the pharmacy. Telephone Encounter - Wilmar Florian - 03/11/2021 11:39 AM CDT Reason for Communication: patient returning phone call. I was unable to reach nurse. Please give patient a call back. Current Can Nursing/Provider leave a detailed message?: NA Did the patient refuse triage through Nurse line? (for symptom based concerns): NA Action Needed: Please give patient a call back. Name of Medication (if relevant): cyclobenzaprine (Flexeril) Telephone Encounter - Betty Machuca - 03/11/2021 10:43 AM CDT Left message for patient to return our call. Does the patient need to speak to nursing? Yes Action needed: Patient needs to be informed we are waiting on prior authorization for the cyclobenzaprine (Flexeril) before it can be sent through to the pharmacy. Telephone Encounter - Ginger Herrera - 03/11/2021 10:15 AM CDT Reason for Communication: Patient called. He saw Dr Kapoor this morning and 3 Rx's were supposed to be sent to his pharmacy. He went to the pharmacy and only 2 of them were there. The muscle relaxer Rx wasn't there. He would like this sent to the pharmacy [facility] Current if questions Can Nursing/Provider leave a detailed message?: no Did the patient refuse triage through Nurse line? (for symptom based concerns): na Action Needed: wants Rx sent to pharmacy [facility] Name of Medication (if relevant): documented in this encounter Plan of Treatment Upcoming Encounters Date Type Specialty Care Team Description 07/22/2022 Office Visit Urology Alexy Yuan M .D. [address] [place], [place] [phone] (Wo rk) 07/22/2022 Appointment Radiation Oncology Sun Hope M.D., Ph.D. [address] [place], [place] [phone] (Wo rk) documented as of this encounter Visit Diagnoses Not on filedocumented in this encounter Care Teams Police Artist Relationship Specialty Start Date End Date Kris Robles M.D., M.B.A. PCP - General Internal Medicine 01/15/21 02/25/[address] [place] [phone] documented as of this encounter
--- OUTSIDE RECORDS SUMMARY | 2022-07-07 11:59 | XMS_ITS | Encounter Summary ---
:1945 Author Organization [facility] Address [address] [place] [address] Care Team Providers Name Role Phone Kris Robles M.D., M.B.A. Primary Care Provider Reason for Visit Reason Comments Communication Encounter Details Date Type Department Care Team Description 03/10/2021 Clinical Communication Department of Lise Staples ommunication Neurology augusta Weber M.D. [place], [place] [address] [facility] [address] [place] [phone] Social History Tobacco Use Types Packs/Day Years Used Date Smoking Tobacco: Never Smokeless Tobacco: Never Alcohol Use Standard Drinks/Week Comments Yes 6 (1 standard drink = 0.6 oz pure alcoho l) Alcohol Habits Answer Date Recorded How often do you have a drink containing 4 or more times a w [place] 02/05/2022 alcohol? How many drinks containing alcohol [...] have completed or the highest Doreen, MEd, COLOR MATCHER, EMELYN) degree you have received? Sex Assigned at Date Recorded Male 03/27/2018 8:35 PM CDT documented as of this encounter Miscellaneous Notes Telephone Encounter - Isabel Martinez R.N. - 03/14/2021 10:17 AM CDT Information Discussed The patient was called, and we discussed Dr. Staples's note stating that she would be better able to determine if he had an irritated nerve root with the EMG. He has been working with his Primary Care Provider on pain control and is very satisfied with the pain relief that he has received from his Primary Care provider Dr. Kapoor. Dr. Kapoor has put him on muscle relaxants with such good pain coverage that the patient does not feel the need for injections at this time. He will continue to work with his Primary Care and thinks he has a Creatinine test coming up in April. He will contact us if he should want an EMG and epidural injection in future. PLAN Disposition/Recommendation: notified provider and awaiting recommendations Information/Education: patient/caller able to teach back Caller agreeable to plan of care: yes The following references were used: nursing clinical judgement Telephone Encounter - Lise Staples M.D. - 03/11/2021 6:37 AM CDT It is his right to decline the EMG, and yes, an injection can still be ordered, but it is important that he understand that one of the goals of EMG was to find a nerve root that could then be targeted with an injection. In other words, if we find an irritated nerve root, we can then target it with a transforaminal epidural. Without the EMG information, we might not be as successful. With this in mind, would he still like an injection without EMG? If so, please have him send us a recent creatinine, as we need a creatinine from within the last 6 months. I will also need the person scanning it in the chart to send me a quick note so that I can look at it, otherwise, I might not know it was sent. WhenI receive it, I will order the injection. Telephone Encounter - Isabel Martinez R.N. - 03/10/2021 3:47 PM CDT Information Discussed The patient called for recommendations regarding injections. He had seen Dr. Staples on 03/03/21. Afterthe MRI on 03/06/21, she wrote: You MRI of the lumbar spine showed arthritis and disk bulges at several levels. This arthritis has the capacity to cause low back pain, which can radiate to the hip. However, I do not think that the presence of this arthritis rules out the possibility that you also have ongoing pain coming specifically from your hip. ?? Because arthritis in the spine has the capacity to pinch nerve roots, I would recommend that you seek immediate medial attention if you were to ever have worsening strength or sensation in your legs. ?? Of note, incidentally, the radiologist noticed a cystic lesion in your left kidney. It is important that you discuss this with your primary care doctor so that they can evaluate this further. ?? I will contact you when I receive the results from your EMG. The patient actually cancelled the EMG - in part because he was concerned that it might be painful and in part because he assumed from Dr. Staples's message that there was not a clear case to be made fora pinched nerve causing his pin. He has reached out to Dr Encarnacion's team. Dr. Encarnacion is away until March 24 and his resident is new andmay not be willing to prescribe a bursa injection. Dr. Encarnacion discussed PT for bursitis. Dr. 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 The patient ahs gone to PT for four weeks without improvement. The patient hopes to travel to [place] for a couple weeks soon but this could be postponed. He also hopes an injection could be tried without doing the EMG, though he recognizes that there are a limited number of injections that can be done and ideally it would target a main source of his pain. At this time, 75% of the patient's pain is in the groin area and in the upper front part of his leg.He has a history of hip surgery. PLAN Disposition/Recommendation: notified provider and awaiting recommendations Information/Education: patient/caller able to teach back Caller agreeable to plan of care: yes The following references were used: nursing clinical judgement Telephone Encounter - Danilo Bravo - 03/10/2021 8:15 AM CDT PROVIDER'S NAME: Dr. Staples CALLER IS: Self Authorization on File: No WHAT IS THE CALL REGARDING? Reason for the Call: General Question(s) Next Follow Up: No Response preference: Phone call Additional Comments: Patient calling to see about getting an injection, he was last seen by Dr. Staples 03-03-21. PATIENT OR CALLER'S PHONE NUMBER: [phone] documented in this encounter Plan of Treatment Upcoming Encounters Date Type Specialty Care Team Description 07/22/2022 Office Visit Urology Alexy Yuan M .D. [address] [place] [phone] (Wo ) 07/22/2022 Appointment Radiation Oncology Sun Hope M.D., Ph.D. [address] [place], [place] [phone] (Meir cronin) documented as of this encounter Visit Diagnoses Not on filedocumented in this encounter Care Teams Social Media Specialist Relationship Specialty Start Date End Date Kris Robles M.D., M.B.A. PCP - General Internal Medicine 01/15/21 02/25/22 [address], [place] [address] documented as of this encounter
--- OUTSIDE RECORDS SUMMARY | 2022-07-07 11:59 | XMS_ITS | Encounter Summary ---
:1945 Author Organization [facility] Address [address] [place] [address] Care Team Providers Name Role Phone Kris Robles M.D., M.B.A. Primary Care Provider [phone] Reason for Referral Outpatient (Routine) - Closed Specialty Diagnoses / Procedures Referred By Contact Refer red To Contact Diagnoses Cyst Renal Kris Robles M.D., [facility] Region Procedures US Kidneys Bilateral with Bladder US Abdomen Complete M.B.A. [address] [place] [phone] Referral ID Status Reason Start Date Expiration Date Visits Requ ested Visits Authorized [id number] Closed 03/10/2021 03/10/2022 1 1 Reason for Visit Outpatient (Routine) - Closed Specialty Diagnoses / Procedures Referred By Contact Refer red To Contact Diagnoses Cyst Renal Kris Robles M.D., [facility] Region Procedures US Kidneys Bilateral with Bladder US Abdomen Complete M.B.A. [address] [place] [phone] Referral ID Status Reason Start Date Expiration Date Visits Requ ested Visits Authorized [id number] Closed 03/10/2021 03/10/2022 1 1 Encounter Details Date Type Department Care Team Description 03/18/2021 Hospital Encounter Department of Radiology [facility], Cyst Renal in [place] nahed Ponce M.D., [address] [place] [phone] [phone] [place] [phone] Social History Tobacco Use Types Packs/Day Years Used Date Smoking Tobacco: Never Smokeless Tobacco: Never Alcohol Use Standard Drinks/Week Comments Yes 6 (1 standard drink = 0.6 oz pure alcoho l) Alcohol Habits Answer Date Recorded How often do you have a drink containing 4 or more times a w [place] 02/05/2022 alcohol? How many drinks containing alcohol [...] 02/05/2022 organizations such as muslim groups, unions, fraternal or athletic groups, or [...] completed or the highest Doreen, MEd, ENVIRONMENTAL CONFLICT MANAGER, EMELYN) degree you have received? Sex [...] Urology Alexy Yuan M .D. [address] [place], [place] [phone] (Wo rk) 07/22/2022 Appointment Radiation Oncology Sun Hope M.D., Ph.D. [address] [place], [place] [phone] (Wo rk) documented as of this encounter Procedures Procedure Name Priority Date/Time Associated Comments Diagnosis US KIDNEYS RAD - Routine 03/18/2021 4:36 Cyst Renal Results for this BILATERAL WITH (most inpatients PM CDT procedure are in BLADDER and all the results outpatients) section. documented in this encounter Results US Kidneys Bilateral with [...] corresponds to the finding on MRI. Kris Robles M.D., M.B.A. IMG US PROCEDURES documented in this encounter Visit Diagnoses Diagnosis Cyst Renal documented in this encounter Care Teams Steel Pickler Relationship Specialty Start Date End Date Kris Robles M.D., M.B.A. PCP - General Internal Medicine 01/15/21 02/25/[address] [phone] documented as of this encounter
--- OUTSIDE RECORDS SUMMARY | 2022-07-07 11:59 | XMS_ITS | Encounter Summary ---
:1945 Author Organization [facility] Address [address] [place] [address] Care Team Providers Name Role Phone Kris Robles M.D., M.B.A. Primary Care Provider [phone] Encounter Details Date Type Department Care Team Description 03/11/2021 Clinical Communication Department of Internal Sandoval Davalos , Medicine in Kris Butts M.D.[place], [place] M.B.A. [address] [place] [address] [place], [place] [phone] Social History Tobacco Use Types Packs/Day Years Used Date Smoking Tobacco: Never Smokeless Tobacco: Never Alcohol Use Standard Drinks/Week Comments Yes 6 (1 standard drink = 0.6 oz pure alcoho l) Alcohol Habits Answer Date Recorded How often do you have a drink containing 4 or more times a w [place] 02/05/2022 alcohol? How many drinks containing [...] have completed or the highest Doreen, MEd, MANAGING COGNITIVE ENGINEER, EMELYN) degree you have received? Sex Assigned at Date Recorded Male 03/27/2018 8:35 PM CDT documented as of this encounter Plan of Treatment Upcoming Encounters Date Type Specialty Care Team Description 07/22/2022 Office Visit Urology Alexy Yuan M .D. [address] [place], [place] [phone] (Wo mehrdad) 07/22/2022 Appointment Radiation Oncology Sun Hope M.D., Ph.D. [address] [place], [place] [phone] (Wo rk) documented as of this encounter Visit Diagnoses Not on filedocumented in this encounter Care Teams Research Computing Specialist Relationship Specialty Start Date End Date Kris Robles M.D., M.B.A. PCP - General Internal Medicine 01/15/21 02/25/22 [address] [place] [address] documented as of this encounter
--- OUTSIDE RECORDS SUMMARY | 2022-07-07 11:59 | XMS_ITS | Encounter Summary ---
:1945 Author Organization [facility] Address [address] [place] [address] Care Team Providers Name Role Phone Kris Robles M.D., M.B.A. Primary Care Provider [phone] Reason for Visit Reason Comments Communication Encounter Details Date Type Department Care Team Description 02/26/2021 Clinical Communication Department of John Encarnacion Co mmunication Orthopedic Surgery in [place], [place] [address] [facility] [address] [place] [phone] Social History Tobacco Use Types Packs/Day Years Used Date Smoking Tobacco: Never Smokeless Tobacco: Never Alcohol Use Standard Drinks/Week Comments Yes 6 (1 standard drink = 0.6 oz pure alcoho l) Alcohol Habits Answer Date Recorded How often do you have a drink containing 4 or more times a w [place] 02/05/2022 alcohol? How many drinks containing alcohol [...] or relatives? How often do you attend synagogue or More than 4 times per year 04/15/2021 adventism services? Do you belong to any clubs or Yes 02/05/2022 organizations such as synagogue groups, unions, fraternal or athletic groups, or [...] have completed or the highest Doreen, MEd, UNDERWATER PHOTOGRAPHER, EMELYN) degree you have received? Sex Assigned at Date Recorded Male 03/27/2018 8:35 PM CDT documented as of this encounter Miscellaneous Notes Telephone Encounter - Isaura Haas O.P.A.-C. - 02/27/2021 3:29 PM CDT I returned patients phone call. I had a very long conversation with patient. He states I have manyfriends that are retired Orthopedic Surgeons and they feel I should obtain an MRI of my hip. I reviewed Dr. Encarnacion his treatment plan from patient's initial consultation. Patient states that he has been going to physical therapy but is not sure if it is helping. His spine consultation has yet to be scheduled. I encouraged him to continue to do his physical therapy and see the Spine Clinic for recommendations. If the spine clinic has been nothing to offer him and he feels that his physical therapy isnot helping we will be happy to see him for repeat examination. Telephone Encounter - Cecille Aguirre - 02/26/2021 12:00 PM CDT The patient saw Dr. Encarnacion on 02/03/2021. He calls today to say that he has done PT for about 3 weeks and does not feel like it helps at all. He is wondering about getting hip and low back injections--as Dr. Encarnacion talked about. He is also wondering if maybe he should have a MRI of the lower back and hip too? He really does not know and would like to discuss what to do next as the pain is really migrating down his leg and into his shepard. He would like to speak with someone about a plan first and would like everything done at [facility]. He would like the call back at [phone]. documented in this encounter Plan of Treatment Upcoming Encounters Date Type Specialty Care Team Description 07/22/2022 Office Visit Urology Alexy Yuan M .D. [address] [place], [place] [phone] (Wo rk) 07/22/2022 Appointment Radiation Oncology Sun Hope M.D., Ph.D. [address] [place], [place] [phone] (Wo rk) documented as of this encounter Visit Diagnoses Not on filedocumented in this encounter Care Teams Journeyman Power Plant Operator Relationship Specialty Start Date End Date Kris Robles M.D., M.B.A. PCP - General Internal Medicine 01/15/21 02/25/[address] [phone] documented as of this encounter
--- OUTSIDE RECORDS SUMMARY | 2022-07-07 11:59 | XMS_ITS | Encounter Summary ---
:1945 Author Organization [facility] Address [address] [place] [address] Care Team Providers Name Role Phone Kris Robles M.D., M.B.A. Primary Care Provider [phone] Reason for Visit Reason Comments Follow-up f/u from hip pain. Appointment Request (Routine) - Closed Specialty Diagnoses / Procedures Referred By Contact Refer red To Contact Family Medicine Referral ID Status Reason Start Date Expiration Date Visits Requ ested Visits Authorized [id number] Closed 03/13/2021 03/13/2022 1 1 Encounter Details Date Type Department Care Team Description 03/18/2021 Office Visit Department of Family Jewel Kapoor Pain Hip Left (Primary Medicine, [place]) Clinic, [place] [address] [phone] Social History Tobacco Use Types Packs/Day Years Used Date Smoking Tobacco: Never Smokeless Tobacco: Never Alcohol Use Standard Drinks/Week Comments Yes 6 (1 standard drink = 0.6 oz pure alcoho l) Alcohol Habits Answer Date Recorded How often do you have a drink containing 4 or more times a w [place] ira 02/05/2022 alcohol? How many drinks containing [...] have completed or the highest Doreen, MEd, FELLER OPERATOR, EMELYN) degree you have received? Sex Assigned at Date Recorded Male 03/27/2018 8:35 PM CDT documented as of this encounter Last Filed Vital Signs Vital Sign Reading Time Taken Comments Blood Pressure 115/70 03/18/2021 2:06 PM CDT Pulse 65 03/18/2021 2:06 PM CDT Temperature 36.6 ??C (97.9 ??F) 03/18/2021 2:06 PM CDT Respiratory Rate 20 03/18/2021 2:06 PM CDT Oxygen Saturation - - Inhaled Oxygen Concentration - - Weight 82.4 kg (181 lb 10.5 oz) 03/18/2021 2:06 PM CDT Height 182 cm (5' 11.65) 03/18/2021 2:06 PM CDT Body Mass Index 24.88 03/18/2021 2:06 PM CDT documented in this encounter Progress Notes Jewel Kapoor M.B.B.S., M.Ayan. - 03/18/2021 2:30 PM CDT SUBJECTIVE CHIEF COMPLAINT / REASON FOR VISIT Dane Sheldon Jr. is a 75 y.o. male who presents for evaluation of Follow-up (f/u from hip pain.). HISTORY OF PRESENT ILLNESS Dane Sheldon Jr. is a 75-year-old male with a history of osteoarthritis status post left hip replacement 16 months ago. He was seen last week with persistent left hip pain following increasing activity. Patient was managed conservatively with muscle relaxants, Tylenol, topical diclofenac and a burst ofprednisone. Today, he reports his pain has improved significantly. He is able to exercise and stretch twice a day. He is also able to walk his dog and has engaged in some gardening. He is yet to play golf. Although he was given 7 tablets of oxycodone, he has not used them. He is concerned about the return of his symptoms when he is done with the prednisone. Today, he rates his pain a 3/10. The following portions of the patient's history were reviewed and updated as appropriate: allergies,current medications, family history, medical history, social history, surgical history and problem list. REVIEW OF SYSTEMS Pertinent items are noted in HPI. OBJECTIVE BP 115/70 (BP Location: Right arm, Patient Position: Sitting, Cuff Size: Large) Pulse 65 Temp 36.6 ??C (Temporal) Resp 20 Ht 182 cm Wt 82.4 kg BMI 24.88 kg/m?? PHYSICAL EXAM General Appearance: healthy, alert, no distress, cooperative. Skin: skin color, texture, turgor normal, no suspicious rashes or lesions. Head: normocephalic, no masses, lesions, tenderness or abnormalities. Eyes: Anicteric sclera. Pupils are equally round and reactive to light. Extraocular movements are intact. . Musculoskeletal: Range of motion normal in hips, knees, shoulders, and spine. Neurologic: Gait normal. Reflexes normal and symmetric. Sensation grossly intact.. ASSESSMENT / PLAN #1 Pain Hip Left 75-year-old male here for follow-up of left hip pain. He has shown significant improvement without current conservative management. He will complete his prednisone burst and use Tylenol and Flexeril asneeded. I have encouraged him to gradually increase his physical activity as tolerated. He may resume golf but he should be careful about limiting his activity for now. I will send him another prescription for a steroid taper. He may use this if his symptoms return. documented in this encounter Plan of Treatment Upcoming Encounters Date Type Specialty Care Team Description 07/22/2022 Office Visit Urology Alexy Yuan M .D. [address] [place], [place] [phone] (Wo rk) 07/22/2022 Appointment Radiation Oncology Sun Hope M.D., Ph.D. [address] [place], [place] [phone] (Wo rk) documented as of this encounter Visit Diagnoses Diagnosis Pain Hip Left - Primary documented in this encounter Care Teams Shot Bagger Relationship Specialty Start Date End Date Kris Robles M.D., M.B.A. PCP - General Internal Medicine 01/15/21 02/25/[address] [phone] documented as of this encounter
--- OUTSIDE RECORDS SUMMARY | 2022-07-07 11:59 | XMS_ITS | Encounter Summary ---
:[address] [facility] Address [address] [place] [address] Care Team Providers Name Role Phone Kris Robles M.D., M.B.A. Primary Care Provider [phone] Reason for Visit Reason Comments Medication Question Encounter Details Date Type Department Care Team Description 03/11/2021 Clinical Communication [facility] of [facility] [address] [address] [place], [place] [phone] [address] (Work) [phone] Social History Tobacco Use Types Packs/Day Years Used Date Smoking Tobacco: Never Smokeless Tobacco: Never Alcohol Use Standard Drinks/Week Comments Yes 6 (1 standard drink = 0.6 oz pure alcoho l) Alcohol Habits Answer Date Recorded How often do you have a drink containing 4 or more times a w inupiat 02/05/2022 alcohol? How many drinks containing alcohol [...] or relatives? How often do you attend religious or More than 4 times per year 04/15/2021 anabaptist services? Do you belong to any clubs or Yes 02/05/2022 organizations such as religious groups, unions, fraternal or athletic groups, or [...] place to sleep or slept in a assisted (including now)? Education Answer Date Recorded What is the highest level of school Master's degree (e.g., M A, MS, 03/28/2019 you have completed or the highest Doreen, MEd, ALLOY WEIGHER, EMELYN) degree you have received? Sex Assigned at Date Recorded Male 03/27/2018 8:35 PM CDT documented as of this encounter Miscellaneous Notes Telephone Encounter - Lise Culver, L.P.N. - 03/12/2021 9:37 AM CDT SUBJECTIVE CHIEF COMPLAINT / REASON FOR CALL Medication Question PLAN The following information was provided: Flexeril prescription was denied by prior auth. Verbal order was called to [facility]. Patient notified that he will have to pay [id number]. Information/Education: patient/caller able to teach back The following references were used: nursing clinical judgement Telephone Encounter - Sara Sanchez - 03/11/2021 4:27 PM CDT Reason for Communication: Patient called, saw Dr Kapoor this morning. RX were being sent to [facility] for approval so have been hung up, He is trying to get the Flexeril, 10 mg refilled, he has talked to the pharmacy 4 times today. He is trying to see if he can get this rx sent/approved so he can just pay for it out of pocket at the pharmacy. He uses [facility] in [place]. He asked if a nurse could call him back yet today if possible Current Can Nursing/Provider leave a detailed message?: Did the patient refuse triage through Nurse line? (for symptom based concerns): Action Needed: please call Name of Medication (if relevant): documented in this encounter Plan of Treatment Upcoming Encounters Date Type Specialty Care Team Description 07/22/2022 Office Visit Urology Alexy Yuan M .D. [address] [place], [place] [phone] (Meir cronin) 07/22/2022 Appointment Radiation Oncology Sun Hope M.D., Ph.D. [address] [place], [place] [phone] (Meir cronin) documented as of this encounter Visit Diagnoses Not on filedocumented in this encounter Care Teams Combine Driver Relationship Specialty Start Date End Date Kris Robles M.D., M.B.A. PCP - General Internal Medicine 01/15/21 02/25/[address] [place] [phone] documented as of this encounter
--- OUTSIDE RECORDS SUMMARY | 2022-07-07 11:59 | XMS_ITS | Encounter Summary ---
:1945 Author Organization [facility] Address [address] [place] [address] Care Team Providers Name Role Phone Kris Robles M.D., M.B.A. Primary Care Provider [phone] Encounter Details Date Type Department Care Team Description 03/12/2021 Orders Only [facility] - Kris Messina, [address] M.D., [place] [address] [address] [place] [address] (Wo rk) Social History Tobacco Use Types Packs/Day Years Used Date Smoking Tobacco: Never Smokeless Tobacco: Never Alcohol Use Standard Drinks/Week Comments Yes 6 (1 standard drink = 0.6 oz pure alcoho l) Alcohol Habits Answer Date Recorded How often do you have a drink containing 4 or more times a w emmonak 02/05/2022 alcohol? How many drinks containing alcohol [...] have completed or the highest Doreen, MEd, ENGINEERING PROFESSOR, EMELYN) degree you have received? Sex Assigned at Date Recorded Male 03/27/2018 8:35 PM CDT documented as of this encounter Plan of Treatment Upcoming Encounters Date Type Specialty Care Team Description 07/22/2022 Office Visit Urology Alexy Yuan M .D. [address] [place], [place] [phone] (Wo mehrdad) 07/22/2022 Appointment Radiation Oncology Sun Hope M.D., Ph.D. [address] [place], [place] [phone] (Wo rk) documented as of this encounter Visit Diagnoses Not on filedocumented in this encounter Care Teams Investigator Operator Relationship Specialty Start Date End Date Kris Robles M.D., M.B.A. PCP - General Internal Medicine 01/15/21 02/25/22 [address] [place] [address] documented as of this encounter
--- OUTSIDE RECORDS SUMMARY | 2022-07-07 11:59 | XMS_ITS | Encounter Summary ---
:1945 Author Organization [facility] Address [address] [place] [address] Care Team Providers Name Role Phone Kris Robles M.D., M.B.A. Primary Care Provider Reason for Visit Reason Comments Communication Encounter Details Date Type Department Care Team Description 03/10/2021 Clinical Communication Department of John Encarnacion [facility] mmunication Orthopedic Surgery in [place], [place] [address] [facility] [address] [place] [phone] Social History Tobacco Use Types Packs/Day Years Used Date Smoking Tobacco: Never Smokeless Tobacco: Never Alcohol Use Standard Drinks/Week Comments Yes 6 (1 standard drink = 0.6 oz pure alcoho l) Alcohol Habits Answer Date Recorded How often do you have a drink containing 4 or more times a w chalkyitsik 02/05/2022 alcohol? How many drinks containing alcohol [...] More than 4 times per year 04/15/2021 roman catholic services? Do you belong to any clubs [...] place to sleep or slept in a fci (including now)? Education Answer Date Recorded What is the highest level of school Master's degree (e.g., Shakeel Cuellar, MS, 03/28/2019 you have completed or the highest Doreen, MEd, BLENDING COORDINATOR, EMELYN) degree you have received? Sex Assigned at Date Recorded Male 03/27/2018 8:35 PM CDT documented as of this encounter Miscellaneous Notes Telephone Encounter - Daniel Brooks M.D. - 03/25/2021 12:10 PM CDT Spoke with patient regarding his left hip pain. He actually saw his primary care physician on 03/18/2021. That physician prescribed prednisone as well as Flexeril on as-needed basis. He has been takingthis for the past week with moderate improvement in symptoms. He is able to now participate in physical therapy exercises. He reports he would like to continue with this for the next 2-3 weeks. If he does not have improvement he will call us back and consider an iliopsoas bursal injection. He has no acute issues at this time. He has our phone # and will contact us should issues arise. He was appreciative for the phone call. Telephone Encounter - Daniel Brooks M.D. - 03/18/2021 4:25 PM CDT Called patient. No answer. Will try at another date Telephone Encounter - Cecille Aguirre - 03/10/2021 8:12 AM CDT The patient calls. He saw Dr. Encarnacion and Dr. Encarnacion said he was not a surgical candidate. The patient did see Neurology too and he said he did not think they could offer him anything either.He said Dr. Encarnacion mentioned injections. Can we order those for him of his left hip or? (I did not see this in Dr. Encarnacion's note). He would like a call back as soon as we can as he said he cannot wait two weeks for something to be done. Please call him back at [phone] documented in this encounter Plan of Treatment Upcoming Encounters Date Type Specialty Care Team Description 07/22/2022 Office Visit Urology Alexy Yuan M .D. [address] [place], [place] [phone] (Wo rk) 07/22/2022 Appointment Radiation Oncology Sun Hpoe M.D., Ph.D. [address] [place], [place] [phone] (Wo rk) documented as of this encounter Visit Diagnoses Not on filedocumented in this encounter Care Teams Oil Spraying Machine Operator Relationship Specialty Start Date End Date Kris Robles M.D., M.B.A. PCP - General Internal Medicine 01/15/21 02/25/[address] [phone] documented as of this encounter
--- OUTSIDE RECORDS SUMMARY | 2022-07-07 11:59 | XMS_ITS | Encounter Summary ---
:1945 Author Organization [facility] Address [address] [place] [address] Care Team Providers Name Role Phone Kris Robles M.D., M.B.A. Primary Care Provider [phone] Encounter Details Date Type Department Care Team Description 03/25/2021 Orders Only [facility] - Kris Messina, [address] M[address]., M.B.[place]. [place] [phone] [place] [address] (Wo rk) Social History Tobacco [...] or relatives? How often do you attend worship or More than 4 times per year 04/15/2021 gnosticist services? Do you belong to any clubs or Yes 02/05/2022 organizations such as worship groups, unions, fraternal or athletic groups, or [...] have completed or the highest Doreen, MEd, NITROGLYCERIN NEUTRALIZER, EMELYN) degree you have received? Sex Assigned at Date Recorded Male 03/27/2018 8:35 PM CDT documented as of this encounter Plan of Treatment Upcoming Encounters Date Type Specialty Care Team Description 07/22/2022 Office Visit Urology Alexy Yuan M .D. [address] [place], [place] [phone] (Wo mehrdad) 07/22/2022 Appointment Radiation Oncology Sun Hope M.D., Ph.D. [address] [place], [place] [phone] (Wo rk) documented as of this encounter Visit Diagnoses Not on filedocumented in this encounter Care Teams Tank Car Loader Relationship Specialty Start Date End Date Kris Robles M.D., M.B.A. PCP - General Internal Medicine 01/15/21 02/25/22 [address] [place] [address] documented as of this encounter
--- OUTSIDE RECORDS SUMMARY | 2022-07-07 11:59 | XMS_ITS | Encounter Summary ---
:[address] [facility] Address [address] [place] [address] Care Team Providers Name Role Phone Kris Robles M.D., M.B.A. Primary Care Provider Reason for Visit Reason Comments Medical Information Encounter Details Date Type Department Care Team Description 04/04/2021 Clinical Communication Department of Sandoval Davalos [facility] Internal Medicine augusta Ponce M.D., M.B.A. [place] [address] [facility] [place] [phone] Social History Tobacco Use Types Packs/Day Years Used Date Smoking Tobacco: Never Smokeless Tobacco: Never Alcohol Use Standard Drinks/Week Comments Yes 6 (1 standard drink = 0.6 oz pure alcoho l) Alcohol Habits Answer Date Recorded How often do you have a drink containing 4 or more times a w iliamna 02/05/2022 alcohol? How many drinks containing alcohol [...] have completed or the highest Doreen, MEd, STATION MECHANIC HELPER, EMELYN) degree you have received? Sex Assigned at Date Recorded Male 03/27/2018 8:35 PM CDT documented as of this encounter Miscellaneous Notes Telephone Encounter - Kris Robles M.D., M.B.A. - 04/04/2021 1:36 PM CDT Signed and completed Telephone Encounter - Ale Taylor, L.P.N. - 04/04/2021 11:49 AM CDT SUBJECTIVE CHIEF COMPLAINT / REASON FOR CALL Medical Information Information Discussed Patient calling requesting lab for COVID antibody be added to labs already scheduled for 04/10/2021.Please contact DOS staff Maricruz Savage once order is signed so he can release lab to be included with other labs (unsure which antibody lab is required with both pended) PLAN Disposition/Recommendation: notified provider and awaiting recommendations Information/Education: patient/caller able to teach back Caller agreeable to plan of care: yes The following references were used: other per patient Telephone Encounter - Miguel Savage - 04/04/2021 11:18 AM CDT documented in this encounter Plan of Treatment Upcoming Encounters Date Type Specialty Care Team Description 07/22/2022 Office Visit Urology Alexy Yuan M .D. [address] [place], [place] [phone] (Wo rk) 07/22/2022 Appointment Radiation Oncology Sun Hope M.D., Ph.D. [address] [place], [place] [phone] (Wo rk) documented as of this encounter Results SARS-CoV-2 Neutralizing Antibody - Sent Out Lab (04/10/2021 8:18 AM CDT) [facility] Method Time Signature SARS-CoV-2 SEE COMMENT 04/18/2021 [...] Organization Address City/State/ZIP Code Phon e Number [facility] [address] [facility], [facility], [place] [address] [address] [place] [address] [address] [facility] ,[address] (ABNORMAL) SARS-CoV-2 [facility], Semi-Quant, S (04/10/2021 8:18 AM CDT) [facility] Method Time Signature SARS-CoV-2 Positive (A) Negative 04/12/2021 [facility] Bakari Ab, 2:58 PM CDT Interp, S [...] >250 (H) <0.80 U/mL 2:58 PM CDT [facility] Comment: ----ADDITIONAL INFORMATION---- Testing was performed using the [employer] Anti-SARS- CoV-2 S Reagent assay from [employer], which has received Emergency Use Authorization (EU A) by the U.S. Food and Drug Administration. Fact sheets for this Emergency Use Autho rization (EUA) assay can be found at the following link s: For Healthcare Providers: https://www.fda.gov/media/645917/downloa d For Patients: https://www.fda.gov/media/582651/downloa d Specimen Anatomical Collection Method Collection Time Receive d Time (Source) Location / / Volume Laterality Blood (Blood, 04/10/2021 8:18 AM 04/11/20 21 Venous) CDT 10:26 PM CDT Kris oRbles M.D., M.B.A. LAB MICROBIOLOGY - BLOO D ORDERABLES Performing Organization Address City/State/ZIP Code Phon e Number [facility] [address] [place], [place] [address] SU[facility] C[facility] [place] [address] Laboratory Medicine and Pathology [address] [place] documented in this encounter Visit Diagnoses Diagnosis Encounter For Screening For Other Viral Diseases (COVID-19) - Primary documented in this encounter Care Teams Ragman Relationship Specialty Start Date End Date Kris Robles M.D., M.B.A. PCP - General Internal Medicine 01/15/21 02/25/[address] [phone] documented as of this encounter
--- NOTE | 2022-07-07 12:00 | CRLHL7_ITS ---
For Patients: As a result of the Century Cures Act, medical imaging exams and procedure reports are released immediately into your electronic medical record. You may view this report before your referring provider. If you have questions, please contact your health care provider. HISTORY: 76-year-old male. 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 Right hip pain. TECHNIQUE: 25.0 millicuries of [id number] was injected intravenously. Three phase images of the pelvis and hips were obtained. FINDINGS: The blood flow images are unremarkable. The blood pool images demonstrate mild hyperemia over the right hip region. There is also relative photopenia with a rim of slightly increased uptake projecting over the left hip region. The delayed images demonstrate a right hip replacement. There is increased uptake adjacent to the right hip prosthetic components. This is nonspecific. This may be simply due to the right hip being replaced relatively recently, reportedly in April 2022. The possibility of loosening or infection is not completely excluded however. The left hip demonstrates a larger area of photopenia over the left hip and proximal left femur than typically seen with a hip replacement. In addition, the blood pool images demonstrate a relative area of photopenia with a rim of slightly increased hyperemia surrounding this area. This is nonspecific but should be correlated clinically as well as with plain x-rays of the left hip. IMPRESSION: 1. There is mildly increased hyperemia and delayed uptake adjacent to the right hip prosthetic components. This is nonspecific. This could simply be postsurgical due to the relatively recent replacement of the right hip. The possibility of loosening or infection is not excluded however. Please correlate this clinically. 2. The left hip demonstrates a larger area of photopenia over the left hip and proximal left femur than usually seen. In addition, there is a an area of relative photopenia with a rim of slightly increased hyperemia surrounding this area on the blood pool images. These findings are nonspecific but should be correlated clinically as well as with current plain x-rays. Dictated by North Bullard MD @ 07/07/2022 4:07:29 PM (Electronically Signed)
--- OUTSIDE RECORDS SUMMARY | 2022-07-07 12:00 | XMS_ITS | Encounter Summary ---
:1945 Author Organization [facility] Address [address] [place] [address] Care Team Providers Name Role Phone Radha Nunez M.D. Primary Care Provider [phone] Reason for Visit Reason Comments Pain Outpatient (Routine) - Closed Specialty Diagnoses / Procedures Referred By Contact Refer red To Contact Orthopedic Surgery Diagnoses Pain Hip Left Painful L ANALIA done elsewhere in the last 9 months [facility] Procedures Work up for painful L ANALIA, start with ESR/CRP Renuka Monson [address] [place] [phone] Referral ID Status Reason Start Date Expiration Date Visits Requ ested Visits Authorized [id number] Closed 04/23/2020 04/23/2021 1 1 Encounter Details Date Type Department Care Team Description 05/30/2020 Comprehensive Visit Department of John Encarnacion, [facility] [place] [place] [address] [facility] [address] [place] [phone] Social History Tobacco Use Types Packs/Day Years Used Date Smoking Tobacco: Never Smokeless Tobacco: Never Alcohol Use Standard Drinks/Week Comments Yes 6 (1 standard drink = 0.6 oz pure alcoho l) Alcohol Habits Answer Date Recorded How often do you have a drink containing 4 or more times a w wiyot 02/05/2022 alcohol? How many drinks containing alcohol [...] or relatives? How often do you attend confucianist or More than 4 times per year 04/15/2021 judaism services? Do you belong to any clubs or Yes 02/05/2022 organizations such as confucianist groups, unions, fraternal or athletic groups, or [...] have completed or the highest Doreen, MEd, CAD DRAFTSMAN, EMELYN) degree you have received? Sex Assigned at Date Recorded Male 03/27/2018 8:35 PM CDT documented as of this encounter Consult Notes John Encarnacion M.D. - 05/30/2020 9:00 AM CDT SUBJECTIVE REASON FOR VISIT Dane Mitchell Pito Cruz is a 74 y.o. male who presents to the office today for Consultation regarding left hip pain. Pain reported: Site 1 Pain Score: 1, Pain Location: Hip, Pain Orientation: Left, (05/30/20 0830 : Fabi Olivo) HISTORY OF PRESENT ILLNESS Dane HarveyJulian Sheldon Jr. is a 74 y.o. male who presents to the office today for consultation regarding left hip pain. he has engaged in a comprehensive non operative treatment program, including, but not limited to muscle strengthening, Tylenol,. He had a left total hip arthroplasty done through what appears to be a posterior lateral approach in [place] in September of 2019. After 6 weeks he reports no pain in the hip and was walking 3-4 miles a day without pain. He had no issues with drainage swelling or wound healing after the surgery. He reports he did develop some plantar fasciitis on his right foot2-3 months ago and obtained bilateral foot orthotics which improved his plantar fasciitis. He has been having low-grade pain in the left hip which she is concerned about due to having no pain early on in his recovery. He reports the pain is not so bad that it prevents him from doing things, he recently walked 18 holes golfing on Wednesday. He thinks he has a small limp as well. He locates the pain to the left groin and lateral hip. He reports the quality is of the pain is in discomfort. Severity is 0/10 at its best and 2/10 at its worst, 1/10 today. Timing is worse with walking and uneven ground, he does not have pain in the morning. He reports the pain is alleviated by rest. He has tried NSAIDs as well as takes Tylenol for the pain. He has no night pain and does not have daily pain. 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 Hip Function Analysis (left hip ) ?? Pain: slight ?? Location of pain: groin and trochanter ?? Occurrence of pain: after walking 30 minutes (or more than 6 blocks) ?? Supports: none ?? Limp: slight ?? Distance walked: unlimited ?? Stairs: yes ?? Socks / tie shoes: yes, with ease ?? supply chain assistant an object from the floor: yes, with ease ?? Sitting: any chair for one hour or more ?? In and out of a car: yes, with ease ?? Rise from chair: able with ease (no arms) ?? Activity level: walk more than 1 mile a day, golf ?? Patient's response (compared to before surgery): much better now ?? Medications: yes, NSAIDs ?? Other LE joint involvement (Samuel all that apply): none REVIEW OF SYSTEMS ?? Prior DVT / PE: None ?? Diabetes mellitus: None ?? Active tobacco use: None ?? Known bleeding disorder: None ?? Chronic anticoagulation: None ?? Immunosuppression: None ?? All other systems reviewed and negative PERTINENT PAST MEDICAL AND SURGICAL HISTORY #1 Pain Hip Left #2 Hyperlipidemia #3 Coronary Artery Disease Without Angina Pectoris has a past medical history of Cataract (2015), Coronary Artery Disease (Unspecified), Fracture Forearm Closed Initial, Herpes Simplex Labialis, Hyperglycemia, Hyperlipidemia, Hypertension NOS (Summer,2016), Neuropathy Peripheral, Osteoarthritis, Pain Chest Atypical, and Paresthesia. has a past surgical history that includes TONSILLECTOMY (N/A); ARTHROSCOPY KNEE (Left, 05/13/2006);Coronary stent placement (2016); Cataract extraction w/ intraocular lens implant (Left, 02/12/2016);Joint replacement (Sep, 2019); and Vasectomy (1996). Family History is non-contributory for painful hip arthroplasty CURRENT MEDICATIONS Dane HarveyJulian Sheldon Jr. has a current medication list which includes the following prescription(s): aspirin, atorvastatin, cholecalciferol (vitamin d3), famciclovir, losartan, metoprolol succinate, and nitroglycerin. OBJECTIVE Vital Signs vitals were not taken for this visit. PHYSICAL EXAMINATION ?? Eyes: Aniceric ?? ENT: Mucous membranes moist ?? Psych: NAD ?? Neuro: A&Ox3 ?? Lungs: Non labored respiration ?? General: Awake and alert. No acute distress. Normal Mood ?? Gait: Antalgic gait slightly on the left ?? Skin: intact and warm with no lesions noted ?? Neurologic: sensation grossly intact to bilateral lower extremities . ?? Vascular: palpable dorsalis pedis and posterior tibial pulse Hip Function Analysis (left hip ) ?? Full Extension: 0 degrees (neutral) ?? Full Flexion: 100 degrees ?? Abduction:+30 degrees ?? Adduction: + 20 degrees (adduction) ?? External Rotation: +30 degrees (external rotation) ?? Internal Rotation: + 20 degrees (internal rotation) ?? Positive Trendelenberg:no ?? Leg Length Discrepancy:legs equal ?? Amount of discrepancy in mm: No discrepancy DIAGNOSTICS Labs: Recent Results (from the past 72 hour(s)) Basic Metabolic Panel Collection Time: 05/29/20 8:08 AM Result Value Potassium, P 4.5 Sodium, P 142 Chloride, P 106 Bicarbonate, P 28 Anion Gap, P 8 BUN, P 16 Creatinine, P 0.78 eGFR Black >90 eGFR Non-Black 89 Calcium, Total, P 9.3 Glucose, P 103 Lipid Panel Collection Time: 05/29/20 8:08 AM Result Value Cholesterol, Total, P 103 Triglycerides, Fasting, P 59 Cholesterol, HDL, P 37 (L) Calculated LDL 54 Non HDL Cholesterol 66 CRP (C-Reactive Protein) Collection Time: 05/29/20 8:08 AM Result Value C-Reactive Protein (CRP), P <3.0 Sedimentation Rate Collection Time: 05/29/20 8:08 AM Result Value Sedimentation Rate, B 12 ?? No results found for this visit on 05/30/20 (from the past 336 hour(s)). ?? Imaging: No images are attached to the encounter or orders placed in the encounter. Multiplanar x-rays of the left hip are independently interpreted today, he has a left uncemented total hip arthroplasty, a well ingrown porous acetabular component as well as a well ingrown proximally porous femoral component. His leg length and offset had been restored with the hip arthroplasty. There is no evidence of polyethylene wear on his imaging. His femoral head is a ceramic so there is no concern for metalosis. He does have lumbar spine degenerative disease with near complete loss of disc space at L4-5. ASSESSMENT / PLAN #1 Pain Hip Left I discussed the clinical and radiographic findings with Dane Sheldon Jr.. He has a well-positioned well-fixed well-functioning left total hip arthroplasty without evidence ofinfection or aseptic loosening. This was discussed with the patient, with his low level of pain in the left hip, and high function, and no evidence of mechanical issues with the hip, would not recommend any surgical intervention. With his normal inflammatory markers will also not plan on proceeding with hip aspiration. We discussed with the patient that hip arthroplasty has continued improvement for up to a year aftersurgery and he is still within this year, would recommend continuing activity as tolerated and continuing strengthening exercises. For his low back arthritis we recommend continuing stretching and core strengthening as he is doing. We discussed his right hip mild to moderate arthritis as well, as he has no pain would not recommendany treatment at this time, but happy to see him back in the future if this begins to cause him pain. Answers for HPI/ROS submitted by the patient on 04/12/2020 No general issues: Yes No eye issues: Yes No ENT issues: Yes No heart issues: Yes No respiratory issues: Yes No GI issues: Yes Muscle pain/stiffness: Yes Back pain/stiffness: Yes No skin issues: Yes Numbness or shooting pain in hands, arms, legs or feet: Yes No mental health issues: Yes No blood/lymph issues: Yes No urinary/reproductive issues: Yes documented in this encounter Plan of Treatment Upcoming Encounters Date Type Specialty Care Team Description 07/22/2022 Office Visit Urology Alexy Yuan M .D. [address] [place], [place] [phone] (Wo rk) 07/22/2022 Appointment Radiation Oncology Sun Hoep M.D., Ph.D. [address] [place], [place] [phone] (Wo rk) documented as of this encounter Visit Diagnoses Diagnosis Pain Hip Left documented in this encounter Care Teams Control Systems Designer Relationship Specialty Start Date End Date Radha Nunez M.D. PCP - General Family Medicine 12/16/18 10/23/[address] [place] [phone] documented as of this encounter
--- OUTSIDE RECORDS SUMMARY | 2022-07-07 12:00 | XMS_ITS | Encounter Summary ---
:1945 Author Organization [facility] Address [address] [place] [address] Care Team Providers Name Role Phone Radha Nunez M.D. Primary Care Provider [phone] Encounter Details Date Type Department Care Team Description 04/23/2020 Orders Only Department of Internal [facility] Medicine in [facility] Saige Monson [facility] [address] [place] [phone] (Wo rk) Social History Tobacco Use Types Packs/Day Years Used Date Smoking Tobacco: Never Smokeless Tobacco: Never Alcohol Use Standard Drinks/Week Comments Yes 6 (1 standard drink = 0.6 oz pure alcoho l) Alcohol Habits Answer Date Recorded How often do you have a drink containing 4 or more times a w [place] 02/05/2022 alcohol? How many drinks containing alcohol [...] have completed or the highest Doreen, MEd, SURFACE PLATE FINISHER, EMELYN) degree you have received? Sex Assigned at Date Recorded Male 03/27/2018 8:35 PM CDT documented as of this encounter Plan of Treatment Upcoming Encounters Date Type Specialty Care Team Description 07/22/2022 Office Visit Urology Alexy Yuan M .D. [address] [place], [place] [phone] (Wo mehrdad) 07/22/2022 Appointment Radiation Oncology Sun Hope M.D., Ph.D. [address] [place], [place] [phone] (Wo rk) documented as of this encounter Visit Diagnoses Not on filedocumented in this encounter Care Teams Chief Executive Relationship Specialty Start Date End Date Radha Nunez M.D. PCP - General Family Medicine 12/16/18 10/23/20 [address] [place] [phone] documented as of this encounter
--- OUTSIDE RECORDS SUMMARY | 2022-07-07 12:00 | XMS_ITS | Encounter Summary ---
:1945 Author Organization [facility] Address [address] [place] [address] Care Team Providers Name Role Phone Radha Nunez M.D. Primary Care Provider [phone] Reason for Visit Reason Comments COVID Inquiry Encounter Details Date Type Department Care Team Description 06/10/2020 Clinical Communication Department of Family Girma N[facility] Medicine, Radha Perry, [facility], in [place] [address] [place] [phone] Social History Tobacco Use Types Packs/Day Years Used Date Smoking Tobacco: Never Smokeless Tobacco: Never Alcohol Use Standard Drinks/Week Comments Yes 6 (1 standard drink = 0.6 oz pure alcoho l) Alcohol Habits Answer Date Recorded How often do you have a drink containing 4 or more times a w [place] 02/05/2022 alcohol? How many drinks containing alcohol [...] have completed or the highest Doreen, MEd, MANAGER INSTRUMENTATION, EMELYN) degree you have received? Sex Assigned at Date Recorded Male 03/27/2018 8:35 PM CDT documented as of this encounter Miscellaneous Notes Telephone Encounter - Kirstin Garvin Jc - 06/10/2020 5:23 PM CDT 1. Is the patient requesting a COVID test only or other appointments? Other Appointments 2. Have you tested positive for COVID-19 in the last 30 days or do you have a pending COVID-19 test because you had symptoms? no 3. In the last 14 days have you had close contact with a lab confirmed positive case of COVID-19 (close contact is defined as a household case of COVID or being within 6 feet of a COVID-19 patient for more than 5 minutes or having direct contact with infectious secretions, e.g., being coughed on)? no 4. In the past 14 days, are any of the following symptoms new to you and not related to an existing health condition? a. Fever greater than or equal to 37.8 C (100.0 F)? no b. New symptoms (Specifically: headache, cough, shortness of breath, respiratory distress, sore throat, diarrhea, nausea, vomiting, chills and repeated shaking with chills, myalgia's (muscle aches), loss of smell, or change or loss of taste sensation)? no 5. Are you having NEW trouble breathing, worsening breathing, or feeling as though you're going to collapse when you stand or sit up? no 6. Have you tested positive for COVID in the last 90 days? no Route reply to: n/a Scheduling Contact Number: [phone] documented in this encounter Plan of Treatment Upcoming Encounters Date Type Specialty Care Team Description 07/22/2022 Office Visit Urology Alexy Yuan M .D. [address] [place], [place] [phone] (Wo rk) 07/22/2022 Appointment Radiation Oncology Sun Hope M.D., Ph.D. [address] [place], [place] [phone] (Wo rk) documented as of this encounter Visit Diagnoses Not on filedocumented in this encounter Care Teams Financial Systems Director Relationship Specialty Start Date End Date Radha Nunez M.D. PCP - General Family Medicine 12/16/18 10/23/20 [address] [phone] documented as of this encounter
--- OUTSIDE RECORDS SUMMARY | 2022-07-07 12:00 | XMS_ITS | Encounter Summary ---
:1945 Author Organization [facility] Address [address] [place] [address] Care Team Providers Name Role Phone Radha Nunez M.D. Primary Care Provider [phone] Reason for Referral Outpatient (Routine) - Closed Specialty Diagnoses / Procedures Referred By Contact Refer red To Contact Cardiovascular Disease Adalid Silva [facility] DAMIAN, C.N.P. [address] [place] [address] Referral ID Status Reason Start Date Expiration Date Visits Requ ested Visits Authorized [id number] Closed 06/04/2020 06/04/2021 1 1 Reason for Visit Reason Comments Follow-up Outpatient (Routine) - Closed Specialty Diagnoses / Procedures Referred By Contact Refer red To Contact Cardiovascular Disease Lulú Vines [facility] [address] [place] [address] Referral ID Status Reason Start Date Expiration Date Visits Requ ested Visits Authorized [id number] Closed 06/05/2019 06/04/2020 1 1 Encounter Details Date Type Department Care Team Description 06/04/2020 Office Visit Department of Adalid Silva Coronary Arter y Disease Without Angina Pectoris (Primary Dx); Cardiovascular Diseases C, SECURITY SYSTEMS SPECIALIST, Hype rlipidemia; in [place], Jessica dockery C.N.PJulian Hypertension Essential Primary; [address] Numbness Hand; [place] [phone] Sleep Disorder [phone] [place] [phone] Social History Tobacco Use Types Packs/Day Years [...] More than 4 times per year 04/15/2021 orthodoxy services? Do you belong to any clubs [...] have completed or the highest Doreen, MEd, WELDER [employer]ODUCTION [employer], EMELYN) degree you have received? Sex Assigned at Date Recorded Male 03/27/2018 8:35 PM CDT documented as of this encounter Last Filed Vital Signs Vital Sign Reading Time Taken Comments Blood Pressure 145/71 06/04/2020 7:57 AM CDT Pulse 65 06/04/2020 7:54 AM CDT Temperature - - Respiratory Rate - - Oxygen Saturation 99% 06/04/2020 7:54 AM CDT Inhaled Oxygen Concentration - - Weight 84.1 kg (185 lb 6.5 oz) 06/04/2020 7:54 AM CDT Height - - Body Mass Index 25.96 04/16/2020 7:53 AM CDT documented in this encounter Progress Notes Adalid Silva, DAMIAN, CJulianNJulianP. - 06/04/2020 8:00 AM CDT SUBJECTIVE CHIEF COMPLAINT/REASON FOR VISIT Coronary artery disease HISTORY OF PRESENT ILLNESS Dane Sheldon Jr. is seen today for annual follow-up for his coronary artery disease. He had developed some chest discomfort and he had notified his primary personal care home administrator back in the fall of 2016 of these symptoms. He was set up for a stress test that came back mildly abnormal. His EF dropped from 57% to 46% at stress. He was referred to Cardiology and was evaluated on July 12, 2017. Due to the noon is soft his chest discomfort with radiation to his left arm with activity along with his abnormal stress test results, he was referred for a coronary angiogram. He was found to have a hemodynamically significant 90% lesion in the mid RCA that was treated with PTCA and stenting. He also had a 60% mid LAD lesion that was treated with PTCA and stenting after an intracoronary pressure of the mid LAD was abnormal. Other scattered disease included a 30% left main, 30% proximal LAD, 30% 1st diagonal, 30% proximal circ, 60% 1st obtuse marginal, 20% distal RCA, and 50% RPDA lesions. Since then, he has done well. He is on high-intensity statin therapy combined with a low-dose aspirin. He has remained on metoprolol as well as losartan for hypertension management. He reports a good functional capacity walking regularly 3-4 miles per day. He likes to golf and halfof the time he will walk the golf course, the other half he will ride a cart. He does a weight training workout on a regular basis as well. He feels that he pays attention to his diet but admits that there is still room for improvement. His blood pressures on his home monitor typically run around the 120s over 70s. More recently, he has been limited by orthopedic complaints. In September of this year he underwent a left total hip replacement in [place]. He does report that he had a stress test prior to the surgery and that he passed it (results are not available to me to review). From a symptom standpoint, he does not have any chest pains, shortness of breath, palpitations, PND,orthopnea, weight gain, or lower extremity edema. He has a couple of noncardiac complaints today including some intermittent numbness in his hands as well as some difficulties with sleep. He will sometimes notice at night or if he is reading a newspaper or magazine that his hands will start to tingle and can become numb. This is intermittent and doesnot happen always. If he straightens his arms, the symptoms will resolve. He also has been having some difficulty waking up around 2:00 a.m. in the morning. He will begin to have thoughts about what heneeds to do that day and has a hard time turning his mind back off to go back to sleep. He has triedsome melatonin which was not successful and some Tylenol p.m. that was. MEDICATIONS Current Outpatient Medications: ??? aspirin 81 mg chewable tablet, Chew 1 tablet daily., Disp: , Rfl: ??? atorvastatin (LIPITOR) 80 mg tablet, Take 1 tablet (80 mg total) by mouth daily., Disp: 90 tablet, Rfl: 3 ??? losartan (COZAAR) 50 mg tablet, Take 1 tablet (50 mg total) by mouth daily., Disp: 90 tablet, Rfl: 3 ??? metoprolol succinate (TOPROL-XL) 25 mg 24 hr tablet, Take 1 tablet (25 mg total) by mouth daily., Disp: 90 tablet, Rfl: 3 ??? nitroglycerin [...] pain continues., Disp: 25 tablet, Rfl: 11 ??? CHOLECALCIFEROL, VITAMIN D3, ORAL, Take 1 capsule by mouth daily. Dose unknown, Disp: , Rfl: ALLERGIES Allergies Allergen Reactions ??? Pollen Extracts Other (see comments) Sneezing PAST MEDICAL/SURGICAL HISTORY Past Medical History: Diagnosis Date ??? Cataract 2015 ??? Coronary Artery Disease (Unspecified) ??? Fracture Forearm Closed Initial bilateral, one by description was an open fracture, but did not require any surgery ??? Herpes Simplex Labialis recurrent ??? Hyperglycemia ??? Hyperlipidemia ??? Hypertension NOS 2016 ??? Neuropathy Peripheral etiology not clear ??? Osteoarthritis ??? Pain Chest Atypical with negative sestamibi 07/02/2014 at [facility] ??? Paresthesia hospitalization for face paresthesia at [facility] in the distant past, no residual Past Surgical History: Procedure Laterality Date ??? ARTHROSCOPY KNEE Left 05/13/2006 secondary to mensical injury ??? CATARACT EXTRACTION W/ INTRAOCULAR LENS IMPLANT Left 02/12/2016 ??? CORONARY STENT PLACEMENT 2016 ??? JOINT REPLACEMENT Sep, 2019 ??? TONSILLECTOMY N/A as a child ??? VASECTOMY 1996 OBJECTIVE VITAL SIGNS BP 145/71 (BP Location: Right arm, Patient Position: Sitting, Cuff Size: Regular) Pulse 65 Wt 84.1 kg SpO2 99% BMI 25.96 kg/m?? PHYSICAL EXAMINATION GENERAL: Well-developed male in no acute distress, alert and oriented x3 VESSELS: No JVD or carotid bruits HEART: Regular rate and rhythm. Normal S1-S2. No murmurs, gallops, or rubs LUNGS: Clear bilaterally. No rales, rhonchi, or wheezing ABDOMEN: Nondistended EXTREMITIES: Warm without pitting edema. DIAGNOSTICS Lab Results Component Value Date CHOL 103 05/29/2020 Lab Results Component Value Date HDL 37 (L) 05/29/2020 Lab Results Component Value Date LDLCALC 54 05/29/2020 Lab Results Component Value Date TRIG 59 05/29/2020 Lab Results Component Value Date CREATININE 0.78 05/29/2020 BUN 16 05/29/2020 NA 142 05/29/2020 K 4.5 05/29/2020 CL 106 05/29/2020 CO2 27 02/05/2016 Echocardiogram July 12, 2017 Normal LV size and wall thickness. No regional wall motion abnormalities and an LVEF of 61%. No significant valvular disease. RVSP 23 mmHg IMPRESSION/REPORT/PLAN #1 Coronary Artery Disease Without Angina Pectoris He is doing well after his intervention in 2017. He has an excellent functional capacity and is without any exertional symptoms that are suggestive of any recurrent or worsening ischemic heart disease.He reportedly had a stress test this year that was negative. Recommend continued activity and exercise along with continued efforts at diet control. I reviewed his lipid panel with him and he is on high-intensity statin therapy along with a low-dose aspirin. No additional changes today. #2 Hyperlipidemia I reviewed his lipid panel with him. The only changes that his HDL has been dropping slightly. He will continue with his 80 mg of atorvastatin and notify the clinic if he has any side effects with this. We did briefly discussed potentially holding his atorvastatin in the setting of his multiple areas of aches and pains that he has largely attributed to osteoarthritis. If he would like to find out if this is a statin induced myopathy/myalgia he can hold the atorvastatin for two weeks. #3 Hypertension Essential Primary His blood pressure is suboptimally controlled in the clinic today but at home his numbers are excellent. We discussed a goal blood pressure consistently less than 130/80. He will continue with the metoprolol and losartan. #4 Numbness Hand We discussed how this is a noncardiac symptom and is likely related to impingement in the wrist or elbow. Recommend follow-up with his primary care physician for further investigation. #5 Sleep Disorder We discussed sleep hygiene and avoidance of sleep medications. We also discussed that, from Cardiology, we would not prescribe additional sleep aid such as Ambien or Lunesta. I defer to his primary care physician if their use is appropriate. Plan for follow-up: Recommend follow-up by Cardiology in one year. documented in this encounter Plan of Treatment Upcoming Encounters Date Type Specialty Care Team Description 07/22/2022 Office Visit Urology Alexy Yuan M .D. [address] [place] [phone] (Wo rk) 07/22/2022 Appointment Radiation Oncology Sun Hope M.D., Ph.D. [address] [place] [phone] (Wo rk) Scheduled Referrals Name Type Priority Associated Order Schedule Diagnoses Cardiovascular Disease Outpatient Referral Routine Expected: office visit (clinic) 2020 (Approximate), Expires: 06/04/2023 documented as of this encounter Visit Diagnoses Diagnosis Coronary Artery Disease Without Angina P ectoris - Primary Hyperlipidemia Hypertension Essential Primary Numbness Hand Sleep Disorder documented in this encounter Care Teams Fish Hatchery Inspector Relationship Specialty Start Date End Date Radha Nunez M.D. PCP - General Family Medicine 12/16/18 10/23/[address] [phone] documented as of this encounter
--- OUTSIDE RECORDS SUMMARY | 2022-07-07 12:00 | XMS_ITS | Encounter Summary ---
:1945 Author Organization [facility] Address [address] [place] [address] Care Team Providers Name Role Phone Kris Robles M.D., M.B.A. Primary Care Provider [phone] Reason for Visit Reason Comments Pre-visit Testing Orders Encounter Details Date Type Department Care Team Description 01/20/2021 Clinical Communication Department of John Encarnacion Pre- visit Testing Orthopedic Surgery Michael Harvey Orders in [place], [facility] [address] [place], [place] [address] [facility] [address] [place], [place] [phone] (Work) [phone] Social History Tobacco Use Types Packs/Day Years Used Date Smoking Tobacco: Never Smokeless Tobacco: Never Alcohol Use Standard Drinks/Week Comments Yes 6 (1 standard drink = 0.6 oz pure alcoho l) Alcohol Habits Answer Date Recorded How often do you have a drink containing 4 or more times a w red devil 02/05/2022 alcohol? How many drinks containing alcohol [...] or relatives? How often do you attend amish or More than 4 times per year 04/15/2021 druze services? Do you belong to any clubs or Yes 02/05/2022 organizations such as amish groups, unions, fraternal or athletic groups, or [...] place to sleep or slept in a half-way (including now)? Education Answer Date Recorded What is the highest level of school Master's degree (e.g., Shakeel Cuellar, [place], 03/28/2019 you have completed or the highest Doreen, MEd, MEDICAL RECORDS DIRECTOR, EMELYN) degree you have received? Sex Assigned at Date Recorded Male 03/27/2018 8:35 PM CDT documented as of this encounter Miscellaneous Notes Telephone Encounter - Kanika Barrett - 01/20/2021 3:00 PM CDT xrays documented in this encounter Plan of Treatment Upcoming Encounters Date Type Specialty Care Team Description 07/22/2022 Office Visit Urology Alexy Yuan M .D. [address] [place], [place] [phone] (Meir cronin) 07/22/2022 Appointment Radiation Oncology Sun Hope M.D., Ph.D. [address] [place], [place] [phone] (Meir cronin) documented as of this encounter Results DX Hip And Pelvis Left 4+ Views (02/03/2021 7:42 AM CDT) Anatomical Region Laterality Modality Lower Extremity, Pelvis, Hip, Musculoskeletal RST LOS, Left Digital Radiography Musculoskeletal ARZ LOS, Muskuloskeletal FLA LOS Specimen (Source) Anatomical Collection Method Collection Time Re ceived Time Location / / Volume Laterality 02/03/2021 8:05 AM CDT Impressions 02/03/2021 8:06 AM CDT Left total hip arthroplasty. Components appear well seated. Heterotopic ossification about the left hip. Degenerative change lower lumbar spine and right hip. No significant simmons ge since 04/19/20. Narrative 02/03/2021 8:06 AM CDT EXAM: ??DX HIP AND PELVIS LEFT 4+ VIEWS Procedure Note Lucila Doyle M.D. - 02/03/2021Forma tting of this note might be different from the original. EXAM: DX HIP AND PELVIS LEFT 4+ VIEWS IMPRESSION: Left total hip arthroplasty. Components appear well seated. Heterotopic ossification about the left hip. Degenerative change lower lumbar spine and right hip. No significant simmons ge since 04/19/20. John Encarnacion M.D. IMWes DIAGNOSTIC IMAGING ILDA JACKSON documented in this encounter Visit Diagnoses Diagnosis Pain Hip Left - Primary Pain Hip Left documented in this encounter Care Teams Inside Account Executive Relationship Specialty Start Date End Date Kris Robles M.D., M.B.A. PCP - General Internal Medicine 01/15/21 02/25/[address] [phone] documented as of this encounter
--- OUTSIDE RECORDS SUMMARY | 2022-07-07 12:00 | XMS_ITS | Encounter Summary ---
:1945 Author Organization [facility] Address [address] [place] [address] Care Team Providers Name Role Phone Radha Nunez M.D. Primary Care Provider Encounter Details Date Type Department Care Team Description 10/17/2020 Clinical Communication Department of Family Girma Braden [facility], Radha Tang, Clinic, in [place] [address] [place] [phone] Social History Tobacco Use Types Packs/Day Years Used Date Smoking Tobacco: Never Smokeless Tobacco: Never Alcohol Use Standard Drinks/Week Comments Yes 6 (1 standard drink = 0.6 oz pure alcoho l) Alcohol Habits Answer Date Recorded How often do you have a drink containing 4 or more times a w koi 02/05/2022 alcohol? How many drinks containing alcohol [...] have completed or the highest Doreen, MEd, CAR SEAT UPHOLSTERER, EMELYN) degree you have received? Sex Assigned at Date Recorded Male 03/27/2018 8:35 PM CDT documented as of this encounter Miscellaneous Notes Telephone Encounter - Christy Bustos, C.M.A. - 10/17/2020 2:54 PM BINDER CHAINSTITCH Per communication, okay to leave detailed message. Left detailed message informing patient of Adalid'sresponse that's it is okay for him to get his COVID vaccine. ER CHAINSTITCH Telephone Encounter - Adalid Silva APRN, C.N.P. - 10/17/2020 2:49 PM BINDER CHAINSTITCH Yes, I would encourage him to get the COVID-19 vaccine, especially because he has heart disease. Even though he had the infection previously, we do not know how long natural immunity lasts. ER CHAINSTITCH Telephone Encounter - Fabi Stewart - 10/17/2020 8:56 AM CST Reason for Communication: pt called and would like to ask Adalid Silva if getting the COVID vaccine is okay to get since he has cardiovascular disease but he has had COVID as well on at the end of august. He is scheduled for the vaccine on Wednesday in [place]. Current [phone] Can Nursing/Provider leave a detailed message?: yes Did the patient refuse triage through Nurse line? (for symptom based concerns): na Action Needed: Please call back Name of Medication (if relevant): na ER CHAINSTITCH documented in this encounter Plan of Treatment [...] on filedocumented in this encounter Care Teams Natural Gas Trader Relationship Specialty Start Date End Date Radha Nunez M.D. PCP - General Family Medicine 12/16/18 10/23/20 [address] [address] documented as of this encounter
--- OUTSIDE RECORDS SUMMARY | 2022-07-07 12:00 | XMS_ITS | Encounter Summary ---
:1945 Author Organization [facility] Address [address] [place] [address] Care Team Providers Name Role Phone Kris Robles M.D., M.B.A. Primary Care Provider [phone] Reason for Referral Physical Therapy (Routine) - Closed Specialty Diagnoses / Procedures Referred By Contact Refer red To Contact Diagnoses Pain Total Hip Arthroplasty Initial ([facility]) John Encarnacion M.D. [address] [place] [address] Referral ID Status Reason Start Date Expiration Visits Visits Date Requested Authorized [id number] Closed Continuity of 02/03/2021 02/03/2022 99 99 Care Reason for Visit Appointment Request (Routine) - Closed Specialty Diagnoses / Procedures Referred By Contact Refer tiburcio To Contact Orthopedic Surgery Referral ID Status Reason Start Date Expiration Date Visits Requ ested Visits Authorized [id number] Closed 01/20/2021 01/20/2022 1 1 Encounter Details Date Type Department Care Team Description 02/03/2021 Office Visit Department of John Encarnacion Pain Total H ip Orthopedic Surgery in [place] Arthroplasty Initial [place], [place] [facility] ([facility]) (Primary Dx) [place] [phone] [phone] Social History Tobacco Use Types Packs/Day Years Used Date Smoking Tobacco: Never Smokeless Tobacco: Never Alcohol Use Standard Drinks/Week Comments Yes 6 (1 standard drink = 0.6 oz pure alcoho l) Alcohol Habits Answer Date Recorded How often do you have a drink containing 4 or more times a w [place] 02/05/2022 alcohol? How many drinks containing alcohol [...] or relatives? How often do you attend catholic or More than 4 times per year 04/15/2021 confucianist services? Do you belong to any clubs or Yes 02/05/2022 organizations such as catholic groups, unions, fraternal or athletic groups, [...] have completed or the highest Doreen, MEd, CROCHET BEADER, EMELYN) degree you have received? Sex Assigned at Date Recorded Male 03/27/2018 8:35 PM CDT documented as of this encounter Consult Notes John Encarnacion M.D. - 02/03/2021 8:30 AM CDT Subjective: Patient returns for continued left hip pain, he reports his pain is improved while he was in [place]. He reports the pain is worsened his [place]. He localizes the pain to both his back some radiation back down to the knee. Localizes the pain along the area of the troch bursa as well as the inferior aspect of the groin area of the iliopsoas bursa. Reports the pain does keep her awake atnight. He reports he is playing golf and walking 4-5 miles a day but he does have some pain with this as well as pain after sitting. He notes recent back issues. Objective: On examination patient has some pain with resisted hip flexion as well as tenderness palpation over the left greater trochanter and some pain with resisted abduction. Xrays: Is a well-fixed left total hip arthroplasty, components appears stable and relatively well positioned. 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 Assessment: #1 Left hip trochanteric bursitis #2 Left hip iliopsoas bursitis Plan: Recommend the patient have both a spine referral for evaluation of his new onset back pain and some radiating pain down the leg. Also recommend that he go to physical therapy for core strengthening as well as abductor and hip flexor stretching and strengthening to help with his hip flexors tendinitis as well as trochanteric bursitis and IT band syndrome. Do not recommend surgical intervention this time. documented in this encounter Plan of Treatment Upcoming Encounters Date Type Specialty Care Team Description 07/22/2022 Office Visit Urology Alexy Yuan M .D. [address] [place], [place] [phone] (Meir cronin) 07/22/2022 Appointment Radiation Oncology Sun Hope M.D., Ph.D. [address] [place], [place] [phone] (Meir cronin) Scheduled Referrals Name Type Priority Associated Diagnoses Order S tim PT non-[place] Outpatient Referral Routine Pain Total Hip Expect ed: referral Arthroplasty Initial 021 ([facility]) (Approximate), Expires: 02/04/2024 documented as of this encounter Visit Diagnoses Diagnosis Pain Total Hip Arthroplasty Initial (HCC ) - Primary documented in this encounter Care Teams Film Mounter Relationship Specialty Start Date End Date Kris Robles M.D., M.B.A. PCP - General Internal Medicine 01/15/21 02/25/[address] [phone] documented as of this encounter
--- OUTSIDE RECORDS SUMMARY | 2022-07-07 12:00 | XMS_ITS | Encounter Summary ---
:1945 Author Organization [facility] Address [address] [place] [address] Care Team Providers Name Role Phone Kris Robles M.D., M.B.A. Primary Care Provider [phone] Encounter Details Date Type Department Care Team Description 02/03/2021 Hospital Encounter Department of Radiology, Shashank, Max Harvey, Pain Hip Left [facility], in .Demi [place], [place] [address] [facility] [place] [address] [place] [phone] [phone] Social History Tobacco Use Types Packs/Day Years Used Date Smoking Tobacco: Never Smokeless Tobacco: Never Alcohol Use Standard Drinks/Week Comments Yes 6 (1 standard drink = 0.6 oz pure alcoho l) Alcohol Habits Answer Date Recorded How often do you have a drink containing 4 or more times a w [place] 02/05/2022 alcohol? How many drinks containing alcohol [...] have completed or the highest Doreen, MEd, PLAYROOM ATTENDANT, EMELYN) degree you have received? Sex Assigned [...] Urology Alexy Yuan M .D. [address] [place], [place] [phone] (Wo rk) 07/22/2022 Appointment Radiation Oncology Sun Hope M.D., Ph.D. [address] [place], [place] [phone] (Wo rk) documented as of this encounter Procedures Procedure Name Priority Date/Time Associated Comments Diagnosis DX HIP AND PELVIS RAD - Routine 02/03/2021 7:42 Pain Hip Left Resul ts for this LEFT 4+ VIEWS (most inpatients AM CDT procedure are in and all the [...] simmons ge since 04/19/20. John Encarnacion M.D. IMG DIAGNOSTIC IMAGING PROCE MANUEL documented in this encounter Visit Diagnoses Diagnosis Pain Hip Left documented in this encounter Care Teams Telecommunications Field Engineer Relationship Specialty Start Date End Date Kris Robles M.D., M.B.A. PCP - General Internal Medicine 01/15/21 02/25/[address] [phone] documented as of this encounter
--- OUTSIDE RECORDS SUMMARY | 2022-07-07 12:00 | XMS_ITS | Encounter Summary ---
:[address] [facility] Address [address] [place] [address] Care Team Providers Name Role Phone Radha Nunez M.D. Primary Care Provider Encounter Details Date Type Department Care Team Description 05/29/2020 Hospital Encounter Department of Bakkali-Dermollye Hypert ension Essential Primary; Laboratory Medicine n, Demi Monson Hyperlipidemia; in [place], [address] Pain Total Hip Arthroplasty Initial (HCC) [address] [phone] Social History Tobacco Use Types Packs/Day Years Used Date Smoking Tobacco: Never Smokeless Tobacco: Never Alcohol Use Standard Drinks/Week Comments Yes 6 (1 standard drink = 0.6 oz pure alcoho l) Alcohol Habits Answer Date Recorded How often do you have a drink containing 4 or more times a w [place] 02/05/2022 alcohol? How many drinks containing [...] have completed or the highest Doreen, MEd, PAINT MIXER HAND, EMELYN) degree you have received? Sex Assigned [...] CHOLECALCIFEROL, VITAMIN Take 1 capsule by 0 /03/201603/14/2021 D3, ORAL mouth daily. Dose unknown famciclovir (FAMVIR) 125 Take 1 tablet by 0 04/0806/04/2020 mg tablet mouth as directed. One tablet twice daily for 5 days as needed for rash losartan (COZAAR) 50 mg Take 1 tablet (50 mg 90 tablet 3 05/02/2021 tablet total) by mouth daily. metoprolol succinate Take 1 tablet (25 mg 90 tablet 3 04/1605/02/2021 (TOPROL-XL) 25 mg 24 hr total) by mouth tabletIndications: daily. Coronary Artery Disease Without Angina Pectoris, Hypertension Essential Primary documented as of this encounter Miscellaneous Notes Result Encounter Note - Ermias Gamez D.O. - 05/29/2020 12:00 PM CDT Please call patient following information. You sodium potassium and kidney function all look great. Your lipid panel is stable as well. Your LDL or bad cholesterol is great at 54. You can improve your HDL or your good cholesterol by increasing physical activity, at least 20 minutes per day 5 days a week. Increasing fruits and vegetables, avoiding any processed or fast foods. documented in this encounter Plan of Treatment Upcoming Encounters Date Type Specialty Care Team Description 07/22/2022 Office Visit Urology Alexy Yuan M .D. [address] [place] [address] [phone] (Meir cronin) 07/22/2022 Appointment Radiation Oncology Sun Hope M.D., Ph.D. [address] [place] [address] [phone] (Meir cronin) documented as of this encounter Procedures Procedure Name Priority Date/Time Associated Diagnosis Comme nts LIPID PANEL, S Routine 05/29/2020 8:08 Hyperlipidemia Results for this AM CDT procedure are i n the results section. SEDIMENTATION RATE, B Routine 05/29/2020 8:08 Pain Total Hip R esults for this AM CDT Arthroplasty Initial procedu re are in (HCC) the results section. C-REACTIVE PROTEIN Routine 05/29/2020 8:08 Pain Total Hip Resu lts for this (CRP), S/P AM CDT Arthroplasty Initial procedu re are in (HCC) the results section. BASIC METABOLIC Routine 05/29/2020 8:08 Hypertension Essential Results for this PANEL, S/P AM CDT Primary procedure are i n the results section. documented in this encounter Results Sedimentation Rate (05/29/2020 8:08 AM CDT) Analysis Performed At Patho logist Time Signature Sedimentation 12 0 - 22 05/29/2020 FB60 Rate, B mm/1 h 9:23 AM CDT Specimen Anatomical Collection Method Collection Time Receive d Time (Source) Location / / Volume Laterality Blood (Blood, 05/29/2020 8:08 AM 05/29/20 20 8:09 Venous) CDT AM CDT John Encarnacion M.D. LAB BLOOD ADD-ON Performing Organization Address City/[facility]/ZIP [facility] Phon e Number [address] [place] [address] [facility] FB60 [place] [address] System in [address] CRP (C-Reactive Protein) (05/29/2020 8:08 AM CDT) athologist Signature C-Reactive <3.0 <=8.0 mg/L 05/29/2020 [facility] Protein (CRP), 10:56 AM CDT Specimen Anatomical Collection Method Collection Time Receive d Time (Source) Location / / Volume Laterality Blood (Blood, 05/29/2020 8:08 AM 05/29/20 20 Venous) CDT 10:27 AM CDT John Encarnacion M.D. LAB BLOOD ADD-ON Performing Organization Address City/[facility]/ZIP Code Phon e Number [facility] [address] [place] [address] [place] [address] System in [place] [address] (ABNORMAL) Lipid Panel (05/29/2020 8:08 AM CDT) athologist Signature Cholesterol, 103 mg/dL 05/29/2020 [facility] Total 10:55 AM CDT Comment: ----REFERENCE VALUE---- Desirable: < 200 Borderline high: 200 - 239 High: > or = 240 Triglycerides 59 mg/dL 05/29/2020 10:55 AM CDT OW AT Comment: ----REFERENCE VALUE---- Normal: <150 Borderline high: 150-199 High: 200-499 Very high: > or =500 Cholesterol, HDL 37 (L) >=40 mg/dL 05/29/2020 10:55 AM CD T [facility] Calculated LDL 54 mg/dL 05/29/2020 10:55 AM CDT O [place] Comment: ----REFERENCE VALUE---- Desirable: <100 Above Desirable: 100-129 Borderline high: 130-159 High: 160-189 Very high: > or =190 Cholesterol, Non-HDL, Calculated 66 mg/dL 020 10:55 AM CDT [facility] Comment: ----REFERENCE VALUE---- Desirable: <130 Above Desirable: 130-159 Borderline high: 160-189 High: 190-219 Very high: > or =220 Specimen Anatomical Collection Method Collection Time Receive d Time (Source) Location / / Volume Laterality Blood (Blood, 05/29/2020 8:08 AM 05/29/20 20 Venous) CDT 10:27 AM CDT Ermias Gamez D.O. LAB BLOOD ADD-ON Performing Organization Address City/State/ZIP Code Phon e Number [facility]- [address] [place] [id number] [place] [address] System in [place] [address] [place] [address] Basic Metabolic Panel (05/29/2020 8:08 AM CDT) P athologist Signature Potassium, P 4.5 3.6 - 5.2 05/29/2020 [facility] mmol/L 10:55 AM CDT Sodium, P 142 135 - 145 05/29/2020 [facility] mmol/L 10:55 AM CDT Chloride, P 106 98 - 107 05/29/2020 [facility] mmol/L 10:55 AM CDT Bicarbonate, P 28 22 - 29 05/29/2020 [facility] mmol/L 10:55 AM CDT Anion Gap, P 8 7 - 15 05/29/2020 [facility] 10:55 AM CDT BUN (Blood Urea 16 8 - 24 05/29/2020 [facility] Nitrogen), P mg/dL 10:55 AM CDT Creatinine 0.78 0.74 - 05/29/2020 [facility] 1.35 mg/dL 10:55 AM CDT eGFR-Black/Afric >90 >=60 05/29/2020 [facility] an [place] mL/min/BSA 10:55 AM CDT Comment: ----ADDITIONAL INFORMATION---- Estimated GFR calculated using the 2009 CKD_EPI creatinine equation. eGFR Non-Black/ 89 >=60 mL/min/BSA 05/29/2020 10:55 AM CDT OW[facility] Comment: ----ADDITIONAL INFORMATION---- Estimated GFR calculated using the 2009 CKD_EPI creatinine equation. Calcium, Total, P 9.3 8.8 - 10.2 mg/dL 05/29/2020 10:5 5 AM CDT [facility] Glucose, P 103 70 - 140 mg/dL 05/29/2020 10:55 AM CDT OW[facility] Specimen Anatomical Collection Method Collection Time Receive d Time (Source) Location / / Volume Laterality Blood (Blood, 05/29/2020 8:08 AM 05/29/20 20 Venous) CDT 10:27 AM CDT Ermias Gamez D.O. LAB BLOOD ADD-ON Performing Organization Address City/State/ZIP Code Phon e Number [facility]- [address] [place] [phone] [place] [address] System in [place] [address] [facility] documented in this encounter Visit Diagnoses Diagnosis Hypertension Essential Primary Hyperlipidemia Pain Total Hip Arthroplasty Initial (HCC ) documented in this encounter Care Teams Online Merchant Relationship Specialty Start Date End Date Radha Nunez M.D. PCP - General Family Medicine 12/16/18 10/23/20 [address], [place] [address] documented as of this encounter
--- OUTSIDE RECORDS SUMMARY | 2022-07-07 12:00 | XMS_ITS | Encounter Summary ---
:1945 Author Organization [facility] Address [address] [place] [address] Care Team Providers Name Role Phone Radha Nunez M.D. Primary Care Provider [phone] Reason for Visit Reason Comments Labs Only Encounter Details Date Type Department Care Team Description 05/07/2020 Clinical Communication Department of John Encarnacion La bs Only Orthopedic Surgery in [place], [place] [address] [facility] [address] [place] [phone] Social History Tobacco Use Types Packs/Day Years Used Date Smoking Tobacco: Never Smokeless Tobacco: Never Alcohol Use Standard Drinks/Week Comments Yes 6 (1 standard drink = 0.6 oz pure alcoho l) Alcohol Habits Answer Date Recorded How often do you have a drink containing 4 or more times a w [place] 02/05/2022 alcohol? How many drinks containing alcohol [...] or relatives? How often do you attend congregational or More than 4 times per year 04/15/2021 catholic services? Do you belong to any clubs or Yes 02/05/2022 organizations such as congregational groups, unions, fraternal or athletic groups, or [...] to sleep or slept in a senior care (including now)? Education Answer Date Recorded What is the highest level of school Master's degree (e.g., M [place], MS, 03/28/2019 you have completed or the highest Doreen, MEd, TERMINAL GAUGER, EMELYN) degree you have received? Sex Assigned at Date Recorded Male 03/27/2018 8:35 PM CDT documented as of this encounter Miscellaneous Notes Telephone Encounter - John Encarnacion M.D. - 05/07/2020 3:27 PM CDT done Telephone Encounter - Nichole Tovar - 05/07/2020 10:16 AM CDT Labs for work up documented in this encounter Plan of Treatment Upcoming Encounters Date Type Specialty Care Team Description 07/22/2022 Office Visit Urology Alexy Yuan M .D. [address] [place], [place] [phone] (Meir cronin) 07/22/2022 Appointment Radiation Oncology Sun Hope M.D., Ph.D. [address] [place], [place] [phone] (Meir cronin) documented as of this encounter Results Sedimentation Rate (05/29/2020 8:08 [...] M.D. LAB BLOOD ADD-ON Performing Organization Address City/[facility]/ZIP Code Phon e Number [facility]- [address] [place] [address] [facility] [address]60 [place] [address] System in [address] CRP (C-Reactive Protein) (05/29/2020 8:08 AM CDT) P athologist Signature C-Reactive <3.0 <=8.0 mg/L 05/29/2020 [facility] Protein (CRP), 10:56 AM CDT P Specimen Anatomical Collection Method Collection Time Receive d Time (Source) Location / / Volume Laterality Blood (Blood, 05/29/2020 8:08 AM 05/29/20 20 Venous) CDT 10:27 AM CDT John Encarnacion M.D. LAB BLOOD ADD-ON Performing Organization Address City/State/ZIP Code Phon e Number [facility]- [address] [place] [address] [place] [address] System in [place] [address] documented in this encounter Visit Diagnoses Diagnosis Pain Total Hip Arthroplasty Initial (HCC ) - Primary documented in this encounter Care Teams Manager Leasing Relationship Specialty Start Date End Date Radha Nunez M.D. PCP - General Family Medicine 12/16/18 10/23/[address], [place] [phone] documented as of this encounter
--- OUTSIDE RECORDS SUMMARY | 2022-07-07 12:00 | XMS_ITS | Encounter Summary ---
:1945 Author Organization [facility] Address [address] [place] [address] Care Team Providers Name Role Phone Radha Nunez M.D. Primary Care Provider [phone] Reason for Visit Reason Comments COVID Nurse Line Encounter Details Date Type Department Care Team Description 10/11/2020 Clinical Communication Division of Soraida Alejandre COVI D Nurse Line [facility], [place], [place] [address] [place] [address] Social History Tobacco Use Types Packs/Day Years Used Date Smoking Tobacco: Never Smokeless Tobacco: Never Alcohol Use Standard Drinks/Week Comments Yes 6 (1 standard drink = 0.6 oz pure alcoho l) Alcohol Habits Answer Date Recorded How often do you have a drink containing 4 or more times a w [place] 02/05/2022 alcohol? How many drinks containing alcohol [...] More than 4 times per year 04/15/2021 restorationism services? Do you belong to any clubs [...] have completed or the highest Doreen, MEd, DEPALLETIZER OPERATOR, EMELYN) degree you have received? Sex Assigned at Date Recorded Male 03/27/2018 8:35 PM CDT documented as of this encounter Miscellaneous Notes Telephone Encounter - Soraida Alejandre, R.N. - 10/11/2020 8:49 AM CST The COVID-19 vaccine will be recommended for everyone who is eligible, but supplies will be limited at first. Federal and state authorities require those with the highest risk of getting infected to begiven vaccinations first. This includes: front-line health care workers, emergency responders and adults in long-term care facilities. The vaccine will be offered to our patients and community members as it becomes available. We shouldbe able to have vaccine for everyone who wants it during 2020. There is nothing you need to do at this time. [facility] will continue to share information with you about COVID-19 vaccines on our COVID-19 information hub. You also can expect emails from your care teams and updates on [facility], [facility] patient portal, about scheduling vaccination appointments at [facility]. IED COMPUTER SCIENCE PROFESSOR documented in this encounter Plan of Treatment Upcoming Encounters Date Type Specialty Care Team Description 07/22/2022 Office Visit Urology Alexy Yuan M .D. [address] [place], [place] [phone] (Wo rk) 07/22/2022 Appointment Radiation Oncology Sun Hope M.D., Ph.D. [address] [place], [place] [phone] (Wo rk) documented as of this encounter Visit Diagnoses Not on filedocumented in this encounter Care Teams Screen Printer Helper Relationship Specialty Start Date End Date Radha Nunez M.D. PCP - General Family Medicine 12/16/18 10/23/20 [address] [place] [address] documented as of this encounter
--- OUTSIDE RECORDS SUMMARY | 2022-07-07 12:00 | XMS_ITS | Encounter Summary ---
:1945 Author Organization [facility] Address [address] [place] [address] Care Team Providers Name Role Phone Radha Nunez M.D. Primary Care Provider Reason for Referral Outpatient (Routine) - Closed Specialty Diagnoses / Procedures Referred By Contact Refer red To Contact Orthopedic Surgery Diagnoses Pain Hip Left Painful L ANALIA done elsewhere in the last 9 months [facility] Procedures Work up for painful L ANALIA, start with ESR/CRP Renuka Monson [address] [place] [address] Referral ID Status Reason Start Date Expiration Date Visits Requ ested Visits Authorized [id number] Closed 04/23/2020 04/23/2021 1 1 Scheduling Instructions Ortho internal referral panel order, ari ging before Consult visit Encounter Details Date Type Department Care Team Description 04/22/2020 Clinical Communication [facility] [place] Renuka Monson [facility], in [place], [address] [address] [place], [place] [phone] (Work) [phone] Social History Tobacco Use Types Packs/Day Years [...] or relatives? How often do you attend restorationism or More than 4 times per year 04/15/2021 zoroastrianism services? Do you belong to any clubs or Yes 02/05/2022 organizations such as restorationism groups, unions, fraternal or athletic groups, or [...] have completed or the highest Doreen, MEd, KIER PLEATER, EMELYN) degree you have received? Sex Assigned at Date Recorded Male 03/27/2018 8:35 PM CDT documented as of this encounter Miscellaneous Notes Telephone Encounter - Melia Darlingkevan Moreno - 05/06/2020 3:13 PM CDT Called and left message for patient to call back and schedule fasting lab work. For the [facility] appt, it looks like the request is in for [place] so I left the [place] referral number on his voice mail for him to call and check on scheduling that appt. Telephone Encounter - Ethel Olivares - 05/06/2020 11:10 AM CDT Please contact patient to schedule. Addendum Note - Ermias Gamez D.O. - 04/23/2020 5:48 PM CDT Addended by: ERMIAS GAMEZ on: 04/23/2020 05:48 PM Modules accepted: Orders Telephone Encounter - Ermias Gamez D.O. - 04/23/2020 5:48 PM CDT Orthopedic referral has been placed. Electronically signed by: Ermias Gamez D.O. 04/23/20 5:48 PM CDT Telephone Encounter - Yoana Chakraborty L.P.NJulian - 04/22/2020 2:50 PM CDT SUBJECTIVE CHIEF COMPLAINT / REASON FOR CALL No chief complaint on file. Information Discussed Patient called asking about his lipid panel results. There was a result note available with results for Vitamin D, B12 and PSA. These results were given. It is noted in his visit from 04/16/20 that a lipid panel was ordered but no results are visible. Advised that this will be looked in to further. Patient states This is completely ridiculous. This was ayearly appointment and I need my cholesterol checked as I have coronary disease. He is also very upset about a previous message regarding his L hip/pelvis xray. He states that someone called him last week and told him that his right hip has degenerative changes/arthritis but says I've know for a long time that my right hip has arthritis and I'll probably be needing that replaced in the future but right now it's my left hip that's causing pain. Patient also has plantar fascitis in his right foot. He would like to pursue an Orthopedic referral as recommended for his left hip pain and is interested in physical therapy if indicated. Patient states that he walks approximately 5 miles per day. Patient is very frustrated and feels I'm caught up in a web of the [facility] system and it's going nowhere. Advised to call back with any further concerns or questions. PLAN Disposition/Recommendation: notified provider and awaiting recommendations Information/Education: patient/caller able to teach back Caller agreeable to plan of care: yes The following references were used: provider Dr. Wilcox documented in this encounter Plan of Treatment Upcoming Encounters Date Type Specialty Care Team Description 07/22/2022 Office Visit Urology Alexy Yuan M .D. [address] [place], [place] [phone] (Wo rk) 07/22/2022 Appointment Radiation Oncology Sun Hope M.D., Ph.D. [address] [place], [place] [phone] (Wo rk) Scheduled Referrals Name Type Priority Associated Order Schedule Diagnoses Orthopedic Surgery - Outpatient Referral Routine Pain Hip Left Expected: Hip (prior 04/23/2020 replacement( (Approximate), surgical) consult Expires: (clinic) 04/23/2023 documented as of this encounter Visit Diagnoses Diagnosis Pain Hip Left - Primary documented in this encounter Care Teams Longwall Machine Operator Helper Relationship Specialty Start Date End Date Radha Nunez M.D. PCP - General Family Medicine 12/16/18 10/23/20 [address] [place] [phone] documented as of this encounter
--- OUTSIDE RECORDS SUMMARY | 2022-07-07 12:00 | XMS_ITS | Encounter Summary ---
:1945 Author Organization [facility] Address [address] [place] [address] Care Team Providers Name Role Phone Radha Nunez M.D. Primary Care Provider Reason for Visit Appointment Request (Routine) - Closed Specialty Diagnoses / Procedures Referred By Contact Refer red To Contact Family Medicine Referral ID Status Reason Start Date Expiration Date Visits Requ ested Visits Authorized [id number] Closed 06/10/2020 06/10/2021 1 1 Encounter Details Date Type Department Care Team Description 06/14/2020 [facility] [address] [phone] Social History Tobacco Use Types Packs/Day Years Used Date Smoking Tobacco: Never Smokeless Tobacco: Never Alcohol Use Standard Drinks/Week Comments Yes 6 (1 standard drink = 0.6 oz pure alcoho l) Alcohol Habits Answer Date Recorded How often do you have a drink containing 4 or more times a w [place] 02/05/2022 alcohol? How many drinks containing alcohol [...] More than 4 times per year 04/15/2021 religion services? Do you belong to any clubs [...] have completed or the highest Doreen, MEd, FIBER GLASS WORKER, EMELYN) degree you have received? Sex Assigned at Date Recorded Male 03/27/2018 8:35 PM CDT documented as of this encounter Plan of Treatment Upcoming Encounters Date Type Specialty Care Team Description 07/22/2022 Office Visit Urology Alexy Yuan M .D. [address] [place], [place] [phone] (Wo rk) 07/22/2022 Appointment Radiation Oncology Sun Hope M.D., Ph.D. [address] [place], [place] [phone] (Wo rk) documented as of this encounter Visit Diagnoses Diagnosis Need Vaccine Immunization Influenza documented in this encounter Care Teams And Drying Supervisor Cooking Casing Relationship Specialty Start Date End Date Radha Nunez M.D. PCP - General Family Medicine 12/16/18 10/23/[address] [place] [phone] documented as of this encounter
--- OUTSIDE RECORDS SUMMARY | 2022-07-07 12:00 | XMS_ITS | Encounter Summary ---
:1945 Author Organization [facility] Address [address] [place] [address] Care Team Providers Name Role Phone Cheyenne Henderson M.D. Primary Care Provider Encounter Details Date Type Department Care Team Description 10/28/2020 Orders Only [facility] PCP TH Sa neil Lui M.D. [address] [place], [place] [phone] (Wo rk) Social History Tobacco Use Types Packs/Day Years Used Date Smoking Tobacco: Never Smokeless Tobacco: Never Alcohol Use Standard Drinks/Week Comments Yes 6 (1 standard drink = 0.6 oz pure alcoho l) Alcohol Habits Answer Date Recorded How often do you have a drink containing 4 or more times a w [place] 02/05/2022 alcohol? How many drinks containing alcohol [...] More than 4 times per year 04/15/2021 voodoo services? Do you belong to any clubs [...] have completed or the highest Doreen, MEd, INTERACTIVE WEB DEVELOPER, EMELYN) degree you have received? Sex Assigned at Date Recorded Male 03/27/2018 8:35 PM CDT documented as of this encounter Plan of Treatment Upcoming Encounters Date Type Specialty Care Team Description 07/22/2022 Office Visit Urology Alexy Yuan M .D. [address] [place], [place] [phone] (Wo rk) 07/22/2022 Appointment Radiation Oncology Sun Hope M.D., Ph.D. [address] [place], [place] [phone] (Wo rk) documented as of this encounter Visit Diagnoses Not on filedocumented in this encounter Care Teams Ultrasonic Solderer Relationship Specialty Start Date End Date Cheyenne Henderson M.D. PCP - General 10/24/20 01/14/[address] [place] [phone] documented as of this encounter
--- OUTSIDE RECORDS SUMMARY | 2022-07-07 12:00 | XMS_ITS | Encounter Summary ---
:1945 Author Organization [facility] Address [address] [place] [address] Care Team Providers Name Role Phone Kris Robles M.D., M.B.A. Primary Care Provider [phone] Encounter Details Date Type Department Care Team Description 02/18/2021 Clinical Communication Department of Internal Sandoval Davalos , Medicine in Kris Butts M.D.[place], [place] M.B.A. [address] [place] [address] [place], [place] [phone] [address] Social History Tobacco Use Types Packs/Day Years Used Date Smoking Tobacco: Never Smokeless Tobacco: Never Alcohol Use Standard Drinks/Week Comments Yes 6 (1 standard drink = 0.6 oz pure alcoho l) Alcohol Habits Answer Date Recorded How often do you have a drink containing 4 or more times a w nav[place] 02/05/2022 alcohol? How many drinks containing alcohol [...] or relatives? How often do you attend buddhism or More than 4 times per year 04/15/2021 restorationism services? Do you belong to any clubs or Yes 02/05/2022 organizations such as buddhism groups, unions, fraternal or athletic groups, or [...] have completed or the highest Doreen, MEd, PROCEDURE MANAGER, EMELYN) degree you have received? Sex Assigned at Date Recorded Male 03/27/2018 8:35 PM CDT documented as of this encounter Miscellaneous Notes Telephone Encounter - Ale Taylor L.PJulianN. - 02/18/2021 4:40 PM CDT Voice mail left for patient notifying him of lab order placed and to return call to clinic to schedule Telephone Encounter - Kris Robles M.D., M.B.A. - 02/18/2021 1:47 PM CDT Signed and completed Telephone Encounter - Ale Taylor L.PJulianN. - 02/18/2021 10:49 AM CDT Pre physical labs pended for approval Telephone Encounter - Janice Hernández - 02/18/2021 9:58 AM CDT Reason for Communication: Patient called in and was wondering if Dr. Robles would put in orders for labs to be done before his physical. Please call patient back Current Can Nursing/Provider leave a detailed message?: Yes Did the patient refuse triage through Nurse line? (for symptom based concerns): Action Needed: Please call patient back Name of Medication (if relevant): documented in this encounter Plan of Treatment Upcoming Encounters Date Type Specialty Care Team Description 07/22/2022 Office Visit Urology Alexy Yuan M .D. [address] [place], [place] [phone] (Wo rk) 07/22/2022 Appointment Radiation Oncology Sun Hope M.D., Ph.D. [address] [place], [place] [phone] (Wo rk) documented as of this encounter Results Thyroid Function [place] (04/10/2021 8:18 AM CDT) P athologist Signature TSH, Sensitive 1.4 0.3 - 4.2 04/10/2021 [place] mIU/L 11:10 AM CDT Specimen Anatomical Collection Method Collection Time Receive d Time (Source) Location / / Volume Laterality Blood (Blood, 04/10/2021 8:18 AM 04/10/20 21 Venous) CDT 10:23 AM CDT Kris Robles M.D., M.B.A. LAB BLOOD ADD-ON Performing Organization Address City/State/ZIP Code Phon e Number [facility]- [address] [place] [address] [place] [address] System in [place] [address] Lipid Panel (04/10/2021 8:18 AM CDT) athologist Signature Cholesterol, 129 mg/dL 04/10/2021 [place] [...] Organization Address City/State/ZIP Code Phon e Number [facility]- [address] [place] [address] [place] [address] System in [place] [address] [facility] Basic Metabolic Panel (04/10/2021 8:18 AM CDT) athologist Signature Potassium, P 4.5 3.6 - [...] CDT eGFR-Black/Afric >90 >=60 04/10/2021 [place] an Gabonese mL/min/BSA 11:03 AM CDT Comment: ----ADDITIONAL INFORMATION---- [...] Organization Address City/State/ZIP Code Phon e Number [facility]- [address] [place] [address] [place] [address] System in [place] [address] CBC without Differential (04/10/2021 8:18 AM CDT) athologist Signature Hemoglobin 14.9 13.2 - 04/10/2021 [...] Address City/State/ZIP Code Phon e Number 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 PCP - General Internal Medicine 01/15/21 02/25/[address] [address] documented as of this encounter
--- OUTSIDE RECORDS SUMMARY | 2022-07-07 12:00 | XMS_ITS | Encounter Summary ---
:1945 Author Organization [facility] Address [address] [place] [address] Care Team Providers Name Role Phone Radha Nunez M.D. Primary Care Provider [phone] Encounter Details Date Type Department Care Team Description 10/14/2020 Orders Only [facility] Sa neil Lui M.D. [address] [place], [place] [phone] (Wo rk) Social History [...] have completed or the highest Doreen, MEd, PIECE CUTTER, EMELYN) degree you have received? Sex Assigned at Date Recorded Male 03/27/2018 8:35 PM CDT documented as of this encounter Plan of Treatment Upcoming Encounters Date Type Specialty Care Team Description 07/22/2022 Office Visit Urology Alexy Yuan M .D. [address] [place], [place] [phone] (Wo rk) 07/22/2022 Appointment Radiation Oncology Sun Hope M.D., Ph.D. [address] [place], [place] [phone] (Wo rk) documented as of this encounter Visit Diagnoses Not on filedocumented in this encounter Care Teams Vice President Of Operations Relationship Specialty Start Date End Date Radha Nunez M.D. PCP - General Family Medicine 12/16/18 10/23/[address], [place] [address] documented as of this encounter
--- OUTSIDE RECORDS SUMMARY | 2022-07-07 12:00 | XMS_ITS | Encounter Summary ---
:1945 Author Organization [facility] Address [address] [place] [address] Care Team Providers Name Role Phone Radha Nunez M.D. Primary Care Provider [phone] Encounter Details Date Type Department Care Team Description 05/08/2020 Clinical Communication Department of John Encarnacion, Orthopedic Surgery in [place], [place] [address] [facility] [address] [place] [phone] Social History Tobacco Use Types Packs/Day Years Used Date Smoking Tobacco: Never Smokeless Tobacco: Never Alcohol Use Standard Drinks/Week Comments Yes 6 (1 standard drink = 0.6 oz pure alcoho l) Alcohol Habits Answer Date Recorded How often do you have a drink containing 4 or more times a w [place] 02/05/2022 alcohol? How many drinks containing alcohol [...] have completed or the highest Doreen, MEd, TECHNICAL SUPPORT REPRESENTATIVE, EMELYN) degree you have received? Sex Assigned at Date Recorded Male 03/27/2018 8:35 PM CDT documented as of this encounter Miscellaneous Notes Telephone Encounter - Danny Wallace - 05/08/2020 8:18 AM CDT Please sign/complete aspiration order. Thank you, Mercedes' documented in this encounter Plan of Treatment Upcoming Encounters Date Type Specialty Care Team Description 07/22/2022 Office Visit Urology Alexy Yuan M .D. [address] [place], [place] [phone] (Meir cronin) 07/22/2022 Appointment Radiation Oncology Sun Hope M.D., Ph.D. [address] [place], [place] [phone] (Meir cronin) documented as of this encounter Visit Diagnoses Diagnosis Pain Hip Left - Primary documented in this encounter Care Teams Application Development Consultant Relationship Specialty Start Date End Date Radha Nunez M.D. PCP - General Family Medicine 12/16/18 10/23/[address] [address] documented as of this encounter
--- OUTSIDE RECORDS SUMMARY | 2022-07-07 12:00 | XMS_ITS | Encounter Summary ---
:1945 Author Organization [facility] Address [address] [place] [address] Care Team Providers Name Role Phone Radha Nunez M.D. Primary Care Provider Reason for Visit Reason Comments Medical Information Encounter Details Date Type Department Care Team Description 09/17/2020 Clinical Communication [facility] Information [facility] in [place], [address] [phone] Social History Tobacco Use Types Packs/Day Years Used Date Smoking Tobacco: Never Smokeless Tobacco: Never Alcohol Use Standard Drinks/Week Comments Yes 6 (1 standard drink = 0.6 oz pure alcoho l) Alcohol Habits Answer Date Recorded How often do you have a drink containing 4 or more times a w [place] 02/05/2022 alcohol? How many drinks containing alcohol [...] or relatives? How often do you attend hindu or More than 4 times per year 04/15/2021 anabaptist services? Do you belong to any clubs or Yes 02/05/2022 organizations such as hindu groups, unions, fraternal or athletic groups, or [...] completed or the highest Doreen, MEd, SENIOR FIREWALL ENGINEER, EMELYN) degree you have received? Sex Assigned at Date Recorded Male 03/27/2018 8:35 PM CDT documented as of this encounter Miscellaneous Notes Telephone Encounter - Lise Gusman RJulianN. - 09/17/2020 5:00 PM CST SUBJECTIVE CHIEF COMPLAINT / REASON FOR CALL Medical Information PLAN The following information was provided: Spoke with patient about positive test and quarantine recommendations. Answered questions about exposure and recommendation to monitor symptoms. Any worsening shortness of breath or cough be evaluated. Information/Education: patient/caller able to teach back The following references were used: nursing clinical judgement ACUTE CARE NURSE Telephone Encounter - Miguel Savage - 09/17/2020 1:29 PM CST Reason for Communication: Patient called and has some question regarding a positive covid test and wanted to talk to bakkali or nurse, please advise. Current Can Nursing/Provider leave a detailed message: yes Did the patient refuse triage through Nurse line? (for symptom based concerns): Action Needed: Name of Medication (if relevant): ACUTE CARE NURSE documented in this encounter Plan of Treatment Upcoming Encounters Date Type Specialty Care Team Description 07/22/2022 Office Visit Urology Alexy Yuan M .D. [address] [place], [place] [phone] (Wo rk) 07/22/2022 Appointment Radiation Oncology Sun Hope M.D., Ph.D. [address] [place], [place] [phone] (Wo rk) documented as of this encounter Visit Diagnoses Not on filedocumented in this encounter Care Teams Water Quality Control Engineer Relationship Specialty Start Date End Date Radha Nunez M.D. PCP - General Family Medicine 12/16/18 10/23/20 [address], [place] [address] documented as of this encounter
--- OUTSIDE RECORDS SUMMARY | 2022-07-07 12:00 | XMS_ITS | Encounter Summary ---
:1945 Author Organization [facility] Address [address] [place] [address] Care Team Providers Name Role Phone Rdaha Nunez M.D. Primary Care Provider [phone] Encounter Details Date Type Department Care Team Description 05/07/2020 Clinical Communication Department of Family [facility], Radha Tang, Clinic, in [place] [address] [place] [phone] Social History Tobacco Use Types Packs/Day Years Used Date Smoking Tobacco: Never Smokeless Tobacco: Never Alcohol Use Standard Drinks/Week Comments Yes 6 (1 standard drink = 0.6 oz pure alcoho l) Alcohol Habits Answer Date Recorded How often do you have a drink containing 4 or more times a w [place] 02/05/2022 alcohol? How many drinks containing alcohol [...] have completed or the highest Doreen, MEd, BUSINESS CONTINUITY DIRECTOR, EMELYN) degree you have received? Sex Assigned at Date Recorded Male 03/27/2018 8:35 PM CDT documented as of this encounter Miscellaneous Notes Telephone Encounter - Beatriz Brody R - 05/07/2020 10:06 AM CDT ([facility] and [facility] [place] locations only: If the patient is not having symptoms and is requesting COVID-19 Nasal Swab testing only, use the process listed in the COVID-19 Patient Requesting COVID PCR Test OTG COVID-19 [place] Patient Requesting COVID PCR Test). 1. Do you have a pending COVID test because you had symptoms or exposure to someone with COVID or you have tested positive for COVID in the last 30 days? no 2. In the past 14 days, do you, anyone in the household, or anyone you have had prolonged exposure have any of the following? a. Fever greater than or equal to 37.8 C (100.0 F)? b. New symptoms (Specifically: headache, cough, shortness of breath, respiratory distress, sore throat, diarrhea, nausea, vomiting, chills and repeated shaking with chills, myalgia's (muscle aches), loss of smell, or change or loss of taste sensation)? c. Had close contact with a patient with known or possible COVID-19 in the last 14 days? Route reply to: Scheduling Contact Number: documented in this encounter Plan of Treatment Upcoming Encounters Date Type Specialty Care Team Description 07/22/2022 Office Visit Urology Alexy Yuan M .D. [address] [place], [place] [phone] (Wo rk) 07/22/2022 Appointment Radiation Oncology Sun Hope M.D., Ph.D. [address] [place], [place] [phone] (Wo rk) documented as of this encounter Visit Diagnoses Not on filedocumented in this encounter Care Teams J2Ee Android Developer Relationship Specialty Start Date End Date Radha Nunez M.D. PCP - General Family Medicine 12/16/18 10/23/20 [address], [place] [address] documented as of this encounter
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
--- OUTSIDE RECORDS SUMMARY | 2022-07-07 12:01 | XMS_ITS | Encounter Summary ---
:1945 Author Organization [facility] Address [address] [place] [address] Care Team Providers Name Role Phone Radha Nunez M.D. Primary Care Provider [phone] Reason for Visit Reason Comments Appointment left message for patient to return my call regarding AWV. Encounter Details Date Type Department Care Team Description 08/02/2019 Documentation Department of [facility] Tori Ahmadi pointment (left Medicine, Radha Tang, message for patient to Clinic, in [place] return my call [place] [address] regarding AWV. ) [address] [place] [address] [place] [phone] Social History Tobacco Use Types Packs/Day Years Used Date Smoking Tobacco: Never Smokeless Tobacco: Never Alcohol Habits Answer Date Recorded How often do you have a drink containing 4 or more times a w [place] 02/05/2022 alcohol? How many drinks containing alcohol [...] More than 4 times per year 04/15/2021 shinto services? Do you belong to any clubs [...] have completed or the highest Doreen, MEd, TOP FRAME MAKER, EMELYN) degree you have received? Sex Assigned at Date Recorded Male 03/27/2018 8:35 PM CDT documented as of this encounter Progress Notes Ana Pollock RNicolle. - 08/02/2019 3:22 PM CST Contacted patient to try to schedule an annual wellness visit with an RN. Left message for patient to return my call. US TRAINER documented in this encounter Plan of Treatment Upcoming Encounters Date Type Specialty Care Team Description 07/22/2022 Office Visit Urology Alexy Yuan M .D. 200 [place], [place] [phone] (Wo rk) 07/22/2022 Appointment Radiation Oncology Sun Hope M.D., Ph.D. [address] [place] [phone] (Wo rk) documented as of this encounter Visit Diagnoses Not on filedocumented in this encounter Care Teams Tobacco Educator Relationship Specialty Start Date End Date Radha Nunez M.D. PCP - General Family Medicine 12/16/18 10/23/[address] [phone] documented as of this encounter
--- OUTSIDE RECORDS SUMMARY | 2022-07-07 12:01 | XMS_ITS | Encounter Summary ---
:1945 Author Organization [facility] Address [address] [place] [address] Care Team Providers Name Role Phone Radha Nunez M.D. Primary Care Provider [phone] Encounter Details Date Type Department Care Team Description 07/10/2019 Clinical Communication Department of [facility] [place] M.D. [address] [phone] Social History Tobacco Use Types Packs/Day Years Used Date Smoking Tobacco: Never Smokeless Tobacco: Never Alcohol Habits Answer Date Recorded How often do you have a drink containing 4 or more times a w [place] 02/05/2022 alcohol? How many drinks containing alcohol [...] have completed or the highest Doreen, MEd, CONSUMER EDUCATION SPECIALIST, EMELYN) degree you have received? Sex Assigned at Date Recorded Male 03/27/2018 8:35 PM CDT documented as of this encounter Plan of Treatment Upcoming Encounters Date Type Specialty Care Team Description 07/22/2022 Office Visit Urology Alexy Yuan M .D. [address] [place], [place] [phone] (Wo rk) 07/22/2022 Appointment Radiation Oncology Sun Hope M.D., Ph.D. 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 Moderate osteoarthritis of th e contralateral right hip unchanged. Prominent os acetabuli bilaterally. Part ially imaged at least moderate to severe degenerative changes of the lower lumbar spine. Narrative 07/28/2019 1:54 PM MST EXAM: ??DX HIP LEFT 2-3 VIEWS COMPARISON: Radiographs 03/08/2019 Procedure Note Thom Lora M.D., M.B.A. - 9 EXAM: DX HIP LEFT 2-3 VIEWS COMPARISON: Radiographs 03/08/2019 IMPRESSION: Moderate to severe left hip osteoarthrit is, progressed from 03/08/2019. Moderate osteoarthritis of th e contralateral right hip unchanged. Prominent os acetabuli bilaterally. Part ially imaged at least moderate to severe degenerative changes of the lower lumbar spine. [facility] documented in this encounter Visit Diagnoses Diagnosis Pain Hip Left - Primary Pain Hip Left documented in this encounter Care Teams Scientific Aide Relationship Specialty Start Date End Date Radha Nunez M.D. PCP - General Family Medicine 12/16/18 10/23/[address] [phone] documented as of this encounter
--- OUTSIDE RECORDS SUMMARY | 2022-07-07 12:01 | XMS_ITS | Encounter Summary ---
:1945 Author Organization [facility] Address [address] [place] [address] Care Team Providers Name Role Phone Radha Nunez M.D. Primary Care Provider [phone] Reason for Visit Reason Comments COVID Inquiry Encounter Details Date Type Department Care Team Description 04/17/2020 Clinical Communication Department of Family Girma Nieto Medicine, Radha Perry, [facility], in [place] [address] [place] [phone] Social History Tobacco Use Types Packs/Day Years Used Date Smoking Tobacco: Never Smokeless Tobacco: Never Alcohol Use Standard Drinks/Week Comments Yes 6 (1 standard drink = 0.6 oz pure alcoho l) Alcohol Habits Answer Date Recorded How often do you have a drink containing 4 or more times a w [place] 02/05/2022 alcohol? How many drinks containing alcohol [...] have completed or the highest Doreen, MEd, SHEET MANUFACTURING SUPERVISOR, EMELYN) degree you have received? Sex Assigned at Date Recorded Male 03/27/2018 8:35 PM CDT documented as of this encounter Miscellaneous Notes Telephone Encounter - Ramy Perez - 04/17/2020 2:50 PM CDT ([facility] and [facility] locations only: If the patient is not having symptoms and is requesting COVID-19 Nasal Swab testing only, use the process listed in the COVID-19 Patient Requesting COVID PCR Test OTG COVID-19 [place] Patient Requesting COVID PCR Test). 1. Do [...] change or loss of taste sensation)? no c. Had close contact with a patient with known or possible COVID-19 in the last 14 days? no Route reply to: Scheduling Contact Number: [phone] documented in this encounter Plan of Treatment Upcoming Encounters Date Type Specialty Care Team Description 07/22/2022 Office Visit Urology Alexy Yuan M .D. [address] [place], [place] [phone] (Wo rk) 07/22/2022 Appointment Radiation Oncology Sun Hope M.D., Ph.D. [address] [place], [place] [phone] (Wo rk) documented as of this encounter Visit Diagnoses Not on filedocumented in this encounter Care Teams Toy Painter Relationship Specialty Start Date End Date Radha Nunez M.D. PCP - General Family Medicine 12/16/18 10/23/20 [address] [address] documented as of this encounter
--- OUTSIDE RECORDS SUMMARY | 2022-07-07 12:01 | XMS_ITS | Encounter Summary ---
:1945 Author Organization [facility] Address [address] [place] [address] Care Team Providers Name Role Phone Radha Nunez M.D. Primary Care Provider [phone] Encounter Details Date Type Department Care Team Description 04/16/2020 Hospital Encounter Department of Jeri-Bib Screen ing Examination Prostate Cancer; Laboratory Medicine nErmias D. O. Numbness Hand in [place], [address] [address] [place] [phone] Social History Tobacco Use Types Packs/Day Years Used Date Smoking Tobacco: Never Smokeless Tobacco: Never Alcohol Use Standard Drinks/Week Comments Yes 6 (1 standard drink = 0.6 oz pure alcoho l) Alcohol Habits Answer Date Recorded How often do you have a drink containing 4 or more times a w [place] 02/05/2022 alcohol? How many drinks containing alcohol [...] have completed or the highest Doreen, MEd, PUBLIC HEALTH POLICY ANALYST, EMELYN) degree you have received? Sex [...] CHOLECALCIFEROL, VITAMIN Take 1 capsule by 0 07/03/201603/14/2021 D3, ORAL mouth daily. Dose unknown famciclovir [...] Encounter Note - Ermias Gamez D.O. - 04/19/2020 5:54 PM CDT Please call patient following information. Your vitamin-D level as well as your PSA looks great. Your B12 level is also in good range. documented in this encounter Plan of Treatment Upcoming Encounters Date Type Specialty Care Team Description 07/22/2022 Office Visit Urology Alexy Yuan M .D. [address] [place] [phone] (Meir cronin) 07/22/2022 Appointment Radiation Oncology Sun Hope M.D., Ph.D. [address] [place] [phone] (Meir rk) documented as of this encounter Procedures Procedure Name Priority Date/Time Associated Diagnosis Comme nts PSA, Routine 04/16/2020 8:57 AM Screening Results f or this ULTRASENSITIVE, S CDT Examination Prostate pr ocedure are in Cancer the results section. 25-HYDROXYVITAMIN Routine 04/16/2020 8:57 AM Numbness Hand Res ults for this D2 AND D3, S CDT procedure are i n the results section. MAGNESIUM, S Routine 04/16/2020 8:57 AM [facility] Results for this CDT procedure are i n the results section. VITAMIN B12 ASSAY, Routine 04/16/2020 8:57 AM Numbness Hand Re sults for this S CDT procedure are i n the results section. documented in this encounter Results Magnesium (04/16/2020 8:57 AM CDT) P athologist Signature Magnesium, P 2.0 1.7 - 2.3 04/16/2020 [facility] mg/dL 10:33 AM CDT Specimen Anatomical Collection Method Collection Time Receive d Time (Source) Location / / Volume Laterality Blood (Blood, 04/16/2020 8:57 AM 04/16/20 9:04 Venous) CDT AM CDT Ermias Gamez D.O. LAB BLOOD ADD-ON Performing Organization Address City/State/ZIP Code Phon e Number [facility]- [address] [place] [address] [place] [address] System in [place] [address] 25-Hydroxyvitamin D2 and D3 (04/16/2020 8:57 AM CDT) P athologist Signature 25-Hydroxy D2 <4.0 ng/mL 04/18/2020 [facility] 1:01 AM CDT 25-Hydroxy D3 35 ng/mL 04/18/2020 [facility] 1:01 AM CDT 25-Hydroxy D 35 ng/mL 04/18/2020 [facility] Total 1:01 AM CDT Comment: ----REFERENCE VALUE---- 25-HYDROXY D TOTAL (D2+D3) Optimum level s in the healthy population are 20-50, patients with bone disease may benefit from higher levels within this r yan. ----ADDITIONAL INFORMATION---- This test was developed and its performa nce characteristics determined by [facility] in a manner consistent with CLIA [...] Address City/State/ZIP Code Phon e Number [facility] [address] [place] [address] [place] [address] [place] [address] Laboratory Medicine and Pathology [address] [place] Vitamin B12 Assay (04/16/2020 8:57 AM CDT) athologist [facility] Vitamin B12 [phone] 04/16/2020 [facility] Assay, S ng/L 4:40 PM CDT Comment: Biotin has been identified by the erika lewis as a potential interfering substance. ??Higher concentr ations of biotin may be found in multivitamins, hair/nail supple ments, and workout supplements. ??If the result does not [facility] clinical observations, repeat testing after patient refrains fr om the use of supplements for at least 12 hours. Specimen Anatomical Collection Method Collection Time Receive d Time (Source) Location / / Volume Laterality Blood (Blood, 04/16/2020 8:57 AM 04/16/20 3:57 Venous) CDT PM CDT Ermias Gamez D.O. LAB BLOOD ADD-ON Performing Organization Address City/State/ZIP Code Phon e Number [facility] [address] [place] [address] [facility] [place], [place] [id number] [place] [address] Prostate-Specific Antigen (PSA) Ultrasensitive (04/16/2020 8:57 AM CDT) athologist [facility] PSA, 4.4 <=6.5 ng/mL 04/17/2020 [facility] Ultrasensitive, 3:42 PM CDT S Comment: ----ADDITIONAL INFORMATION---- INTERPRETATION: After radical prostatectomy, serum PSA c oncentrations should decrease and remain at undetectab le levels. ??The [place] [employer] defines biochemical recurrence as an [...] Address City/State/ZIP Code Phon e Number [facility] [address] [place] [address] [facility] [place] [address] Laboratory Medicine and Pathology [address] [place] documented in this encounter Visit Diagnoses Diagnosis Screening Examination Prostate Cancer Numbness Hand documented in this encounter Care Teams Fight Manager Relationship Specialty Start Date End Date Radha Nunez M.D. PCP - General Family Medicine 12/16/18 10/23/[address] [phone] documented as of this encounter
--- OUTSIDE RECORDS SUMMARY | 2022-07-07 12:01 | XMS_ITS | Encounter Summary ---
:1945 Author Organization [facility] Address [address] [place] [address] Care Team Providers Name Role Phone Radha Nunez M.D. Primary Care Provider [phone] Encounter Details Date Type Department Care Team Description 07/28/2019 Hospital Encounter Department of Radiology, Adalid Arango, Pain Hip Left Specialty [facility], in [place], [place] [address] [place] [phone] Social History Tobacco Use Types Packs/Day Years Used Date Smoking Tobacco: Never Smokeless Tobacco: Never Alcohol Habits Answer Date Recorded How often do you have a drink containing 4 or more times a w [place] 02/05/2022 alcohol? How many drinks containing alcohol [...] have completed or the highest Doreen, MEd, CHILDREN'S LITERATURE PROFESSOR, EMELYN) degree you have received? Sex Assigned at Date Recorded Male 03/27/2018 8:35 PM CDT documented as of this encounter Medications at Time of Discharge Medication Sig Dispensed Refills Start Date End Date aspirin 81 mg chewable Chew 1 tablet [...] 1 tablet (80 mg 90 tablet 3 03/29/2019 04/16/2020 mg tabletIndications: total) by mouth Coronary Artery Disease daily. Without Angina Pectoris, Hyperlipidemia CHOLECALCIFEROL, VITAMIN Take 1 capsule by 0 03/201603/14/2021 D3, ORAL mouth daily. Dose unknown famciclovir (FAMVIR) 125 Take 1 tablet by 0 04/0806/04/2020 mg tablet mouth as directed. One tablet twice daily for 5 days as needed for rash losartan (COZAAR) 100 mg Take 0.5 tablets (50 30 tablet 0 1 04/16/2020 tablet mg total) by mouth daily. losartan (COZAAR) 50 mg 0 06/16/2019 0 04/16/2020 tablet losartan (COZAAR) 50 mg Take 50 mg by mouth 0 08/15/2019 tablet daily. metoprolol succinate Take 1 tablet (25 mg 90 tablet 3 03/2904/16/2020 (TOPROL-XL) 25 mg 24 hr total) by mouth tabletIndications: daily. Coronary Artery Disease Without Angina Pectoris, Hypertension Essential Primary documented as of this encounter Plan of Treatment Upcoming Encounters Date Type Specialty Care Team Description 07/22/2022 Office Visit Urology Alexy Yuan M .D. [address] [place], [place] [phone] (Wo rk) 07/22/2022 Appointment Radiation Oncology Sun Hope M.D., Ph.D. [address] [place], [place] [phone] (Wo rk) documented as of this encounter Procedures Procedure Name Priority Date/Time Associated Comments Diagnosis DX HIP LEFT 2-3 RAD - Routine 07/28/2019 11:07 Pain Hip Left Result s for this VIEWS (most inpatients AM MST procedure a re in and all the results outpatients) section. 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 Moderate osteoarthritis of th e contralateral right hip unchanged. Prominent os acetabuli bilaterally. Part ially imaged at least moderate to severe degenerative changes of the lower lumbar spine. Narrative 07/28/2019 1:54 PM [facility] EXAM: ??DX HIP LEFT 2-3 VIEWS COMPARISON: [...] changes of the lower lumbar spine. Adalid Arango M.D. [facility] ILDA JACKSON documented in this encounter Visit Diagnoses Diagnosis Pain Hip Left documented in this encounter Care Teams Computer Systems Analyst Relationship Specialty Start Date End Date Radha Nunez M.D. PCP - General Family Medicine 12/16/18 10/23/[address] [phone] documented as of this encounter
--- OUTSIDE RECORDS SUMMARY | 2022-07-07 12:01 | XMS_ITS | Encounter Summary ---
:1945 Author Organization [facility] Address [address] [place] [address] Care Team Providers Name Role Phone Radha Nunez M.D. Primary Care Provider [phone] Encounter Details Date Type Department Care Team Description 08/15/2019 Orders Only Department of Family Ana Pollock A nnual Medicare Medicine, [facility], [facility] Return [facility], in [facility] (Prima ry Dx) [address] [phone] Social History Tobacco Use Types Packs/Day Years [...] have completed or the highest Doreen, MEd, CABLE WAY OPERATOR, EMELYN) degree you have received? Sex Assigned at Date Recorded Male 03/27/2018 8:35 PM CDT documented as of this encounter Plan of Treatment Upcoming Encounters Date Type Specialty Care Team Description 07/22/2022 Office Visit Urology Alexy Yuan M .D. [address] [place], [place] [phone] (Wo rk) 07/22/2022 Appointment Radiation Oncology Sun Hope M.D., Ph.D. [address] [place], [place] [phone] (Wo rk) documented as of this encounter Visit Diagnoses Diagnosis Annual Medicare Examination Return - Kathryn young documented in this encounter Care Teams Hand Embroiderer Relationship Specialty Start Date End Date Radha Nunez M.D. PCP - General Family Medicine 12/16/18 10/23/20 [address], [place] [address] documented as of this encounter
--- OUTSIDE RECORDS SUMMARY | 2022-07-07 12:01 | XMS_ITS | Encounter Summary ---
:1945 Author Organization [facility] Address [address] [place] [address] Care Team Providers Name Role Phone Radha Nunez M.D. Primary Care Provider [phone] Reason for Visit Reason Comments Groin Pain left sided Outpatient (Routine) - Closed Specialty Diagnoses / Referred By Contact Referred To Contact Procedures Physical Medicine and Guanaco Sosa D.O. [address] [place] [address] Referral ID Status Reason Start Date Expiration Date Visits Requ ested Visits Authorized [id number] Closed 06/09/2019 06/08/2020 1 1 Encounter Details Date Type Department Care Team Description 06/15/2019 Office Visit Department of Physical Guanaco Sosa, Pain Hip Left (Primary Dx); Medicine and DJulianOJulian Primary Osteoarthritis Hip Left Rehabilitation in [address] [place] [address] [place] [address] [phone] Social History Tobacco Use Types Packs/Day Years Used Date Smoking Tobacco: Never Smokeless Tobacco: Never Alcohol Habits Answer Date Recorded How often do you have a drink containing 4 or more times a w [place] 02/05/2022 alcohol? How many drinks containing [...] or relatives? How often do you attend adventism or More than 4 times per year 04/15/2021 yazidi services? Do you belong to any clubs or Yes 02/05/2022 organizations such as adventism groups, unions, fraternal or athletic groups, or [...] completed or the highest Doreen, MEd, PROCEDURE ANALYST, EMELYN) degree you have received? Sex Assigned at Date Recorded Male 03/27/2018 8:35 PM CDT documented as of this encounter Patient Instructions Patient InstructionsGuanaco Sosa D.O. - 06/15/2019 8:00 AM CDT Follow-Up Plan: __ Medications: Acetaminophen up to 1267-1677 mg/day as needed along with ice/heat as needed for improvement of pain/discomfort __ Sport/school/work note __ Referrals/labs/imaging/procedures/DME (orders): None __ Follow-up phone call/portal message: After obtaining additional information regarding orthopedic surgical colleagues in [place]; if interested in proceeding forward with a repeat left hip intra-articular corticosteroid injection with ultrasound guidance, a left hip intra-articular viscosupplementation with ultrasound guidance, and/or a left hip intra-articular platelet rich plasma injection with ultrasound guidance for further treatment purposes __ Follow-up clinic appointment: As needed at this time for further evaluation/medical care __ Scheduling desk Please feel free to call ([phone]) or message me on the [facility] Patient Portal if you have any questions. I want to thank you for coming into the clinic today. I enjoyed meeting you and am happy that you have trusted us to provide medical care for you today and beyond. I take pride in getting to know to mypatients and understanding their medical history and conditions. This allows me to work with each individual patient on designing an individualized treatment plan to provide the best medical care to optimize improving pain and/or function. As a PM&R (physical medicine & rehabilitation) and sports medicine physician/stock letterer (expert in bone, muscle, and nerve), my main goal is to help patients like you restore movement and function so you can remain as active as possible. I treat non-surgical/non-operative musculoskeletal, orthopedic, and sports medicine conditions including, but not limited to: ??? Neck pain (disc disease/arthritis, herniated disc, spinal stenosis, strain) ??? Shoulder pain (rotator cuff tears, tendonitis, bursitis, frozen shoulder, impingement) ??? Elbow pain (tennis elbow, golfers elbow, bursitis) ??? Wrist/hand pain (tendonitis, trigger finger, ganglion cysts) ??? Low back pain (disc disease/arthritis, herniated disc, spinal stenosis, strain) ??? Knee pain (tendonitis, Victoria???s cyst, meniscus tears, sprains, IT band) ??? Foot/ankle pain (sprains, tendonitis, plantar fasciitis, shepard splints) ??? Fractures (stress fractures, compression fractures) ??? Arthritis (knee, shoulder, hip, wrist/hand, elbow, foot/ankle) ??? Adult and pediatric sports medicine ??? Sports-related concussions ??? Ligament, joint and tendon injuries, conditions and disorders ??? Nerve disorders (sciatica, carpal tunnel, tarsal tunnel) Advanced technology that I use to treat patients like yourself includes musculoskeletal ultrasound, steroid injections, platelet rich plasma injections, and TENEX, that have benefits that include improving pain and providing faster recovery times. For more information about the services I offer or for my full profile, I invite you to visit [email or web address]. If you are in need of a clinic appointment for any of the additional services I provide, please call to schedule an appointment at your convenience. Follow me on Twitter [email or web address]. documented in this encounter Consult Notes Guanaco Sosa D.O. - 06/15/2019 8:00 AM CDT Physical Medicine & Rehabilitation Clinic Note Dane Sheldon Jr. (Charles) is a 73 y.o. male who is seen as self referral for evaluation of left hip pain. SUBJECTIVE Symptoms began in February 2019 when he was doing increase physical activities at that time with a strain noted of the left quadriceps. Seen by Dr. Delgado from [facility] with recommendations for a left total hip arthroplasty for further treatment purposes. See by Dr. Harrell with recom mendations for a left hip intra-articular corticosteroid injection with ultrasound guidance for further treatment purposes. Notes left anterior hip pain that is worse with sitting activities and with slouching and is better in the morning. Symptoms have been variable over the course of time. Treatment has included a left hip intra-articular corticosteroid injection with ultrasound guidance with 3 days of improvement of symptoms and formal physical therapy at [facility]. Notes intermittent weakness of the left lower extremity. Denies any numbness/tingling of the left lower extremity. Denies any falls/trauma since his last clinical visit. Denies any previous left hip surgeries. Gastrointestinal: Positive for diarrhea. Musculoskeletal: Positive for arthralgias, back pain and pain or stiffness in the joints. The following systems were negative: Constitutional, Skin, Eyes, ENT, CV, Respiratory, , Hematologic, Neuro, Psych The following portions of the patient's history were reviewed and updated as appropriate: allergies,surgical history, current medications, problem list, family history, medical history and social history OBJECTIVE There were no vitals filed for this visit. BMI Readings from Last 3 Encounters: 06/05/19 26.47 kg/m?? 05/29/19 25.45 kg/m?? 03/29/19 25.06 kg/m?? Wt Readings from Last 3 Encounters: 06/05/19 85.3 kg 05/29/19 84.3 kg 03/29/19 83 kg Physical Exam General: healthy, alert, and in no acute distress Skin: no suspicious lesions or rashes Psych: no acute distress Respiratory: normal respiratory effort without conversational dyspnea Musculoskeletal: Left hip Passive Range of Motion: Flexion within normal limits / IR limited by pain / ER limited by pain Strength: Flexion 5/5 / knee extension 5/5 Special Tests: Positive: Stinchfield and log roll Negative: CONCETTA Diagnostics no x-rays indicated during today's clinical visit and outside film(s) from [facility] were reviewed today, independent interpretation/visualization of images was completed, and results were discussed with thepatient MRI of the left hip 03/09/2019 CONCLUSION: 1. Moderate osteoarthritic changes of the left hip as described. There is full- thickness and near full-thickness chondral loss with spurring along the articular margins. Bony changes along the articular surfaces can be seen. 2. Tearing and degeneration of the left acetabular labrum. 3. Strain involving the proximal aspect of the left vastus intermedius along the anterior aspect of the proximal femur. No other musculotendinous abnormalities are present. 4. No abnormal bursal fluid collections about the pelvis or hips can be seen. Lab Results Component Value Date HGBA1C 5.5 04/01/2017 HGBA1C 5.6 06/15/2016 HGBA1C 5.4 07/05/2015 ASSESSMENT / PLAN #1 Left hip pain #2 Primary left hip osteoarthrosis Discuss his current symptoms along with additional treatment options including returning to formal physical therapy, oral pain medication management, injection therapy, a hip architecture professor brace, initiationof use of a cane, and a left total hip arthroplasty. Recommend to continue with [id number] pain medications as needed including Tylenol/ice as needed for improvement of pain/discomfort and to continue with daily activities as able as tolerated at this time. Discussed potential injection treatment options including a repeat left hip intra- articular corticosteroid injection with ultrasound guidance, a left hip intra- articular viscosupplementation injection with ultrasound guidance, and a left hip intra-articular platelet rich plasma injection with ultrasound guidance. Also discussed stem-cell therapy treatment with the patient. In addition discussed a left hip architecture professor brace, initiation of a cane for further treatment purposes, etc. Discussed a left total hip arthroplasty would help with his c urrent symptomatology and the patient wished that I would reach out to orthopedic surgical providersin the [place] system in [place] to obtain information regarding surgical providers that would be recommended for consideration of the surgery to be completed in [place] moving forward. Informed the patient will reach out to him via the portal system in 1-2 days upon obtaining this information to relay this information to him to help him determine what he would like to do next for further treatment purposes moving forward with consideration of additional treatment options as noted above. Follow-up in clinic as needed at this time for further evaluation/medical care. Guanaco Sosa DO, DARWINM Hairspring I Inspector Oil Burner Physical Medicine & Rehabilitation I spent a total of 30 minutes [id number] with the patient during today's office visit. Over 50% ofthe time was spent counseling the patient and/or coordinating care regarding. See office note for details. documented in this encounter Plan of Treatment Upcoming Encounters Date Type Specialty Care Team Description 07/22/2022 Office Visit Urology Alexy Yuan M .D. [address] [place], [place] [phone] (Wo rk) 07/22/2022 Appointment Radiation Oncology Sun Hope M.D., Ph.D. [address] [place], [place] [phone] (Wo rk) documented as of this encounter Visit Diagnoses Diagnosis Pain Hip Left - Primary Primary Osteoarthritis Hip Left documented in this encounter Care Teams Circuit Recorder Relationship Specialty Start Date End Date Radha Nunez M.D. PCP - General Family Medicine 12/16/18 10/23/[address] [place] [phone] documented as of this encounter
--- OUTSIDE RECORDS SUMMARY | 2022-07-07 12:01 | XMS_ITS | Encounter Summary ---
:1945 Author Organization [facility] Address [address] [place] [address] Care Team Providers Name Role Phone Radha Nunez M.D. Primary Care Provider Reason for Visit Reason Comments Med Refill Encounter Details Date Type Department Care Team Description 08/15/2019 Refill Department of Family Medicine, Mak Gonzalez Refill [facility], in Radha Foreman M.D. [place] [address] [address] [place], [place] [address] [phone] Social History Tobacco Use Types Packs/Day Years Used Date Smoking Tobacco: Never Smokeless Tobacco: Never Alcohol Habits Answer Date Recorded How often do you have a drink containing 4 or more times a w [place] 02/05/2022 alcohol? How many drinks containing alcohol [...] or relatives? How often do you attend anglican or More than 4 times per year 04/15/2021 christianity services? Do you belong to any clubs or Yes 02/05/2022 organizations such as anglican groups, unions, fraternal or athletic groups, or [...] have completed or the highest Doreen, MEd, INTEGRATED CIRCUIT IC LAYOUT DESIGNER, EMELYN) degree you have received? Sex Assigned at Date Recorded Male 03/27/2018 8:35 PM CDT documented as of this encounter Plan of Treatment Upcoming Encounters Date Type Specialty Care Team Description 07/22/2022 Office Visit Urology Alexy Yuan M .D. [address] [place], [place] [phone] (Wo rk) 07/22/2022 Appointment Radiation Oncology Sun Hope M.D., Ph.D. [address] [place], [place] [phone] (Wo rk) documented as of this encounter Visit Diagnoses Not on filedocumented in this encounter Care Teams Candy Catcher Relationship Specialty Start Date End Date Radha Nunez M.D. PCP - General Family Medicine 12/16/18 10/23/20 [address] [place] [phone] documented as of this encounter
--- OUTSIDE RECORDS SUMMARY | 2022-07-07 12:01 | XMS_ITS | Encounter Summary ---
:1945 Author Organization [facility] Address [address] [place] [address] Care Team Providers Name Role Phone Radha Nunez M.D. Primary Care Provider Reason for Visit Reason Comments Hypertension 3 week follow up to adding m edication losartin 25 mg Follow-up recheck of leision on scalp Outpatient (Routine) - Closed Specialty Diagnoses / Procedures Referred By Contact Refer red To Contact Family Medicine Diagnoses Lesion Scalp NAN NunezS SE [place] Devonte Garcia M.D. [address] [place] [address] Referral ID Status Reason Start Date Expiration Date Visits Requ ested Visits Authorized [id number] Closed 06/16/2019 06/15/2020 1 1 Encounter Details Date Type Department Care Team Description 07/06/2019 Office Visit Department of [facility] Tori Hyp ertension Essential Primary (Primary Dx); Medicine, Radha Tang Lesion S [facility], in Michael Lugo [place] [address], [place] [phone] Social History Tobacco Use Types Packs/Day Years Used Date Smoking Tobacco: Never Smokeless Tobacco: Never Alcohol Habits Answer Date Recorded How often do you have a drink containing 4 or more times a w [place] 02/05/2022 alcohol? How many drinks containing alcohol [...] 02/05/2022 organizations such as sabianist groups, unions, fraProcera Networks or athletic groups, or school groups? How [...] have completed or the highest Doreen, MEd, INSULATION ESTIMATOR, EMELYN) degree you have received? Sex Assigned at Date Recorded Male 03/27/2018 8:35 PM CDT documented as of this encounter Last Filed Vital Signs Vital Sign Reading Time Taken Comments Blood Pressure 132/74 07/06/2019 2:57 PM CDT Pulse 80 07/06/2019 2:57 PM CDT Temperature 36.5 ??C (97.7 ??F) 07/06/2019 2:57 PM CDT Respiratory Rate 18 07/06/2019 2:57 PM CDT Oxygen Saturation - - Inhaled Oxygen Concentration - - Weight 84.6 kg (186 lb 9.9 oz) 07/06/2019 2:57 PM CDT Height 179.5 cm (5' 10.67) 07/06/2019 2:57 PM CDT Body Mass Index 26.27 07/06/2019 2:57 PM CDT documented in this encounter Progress Notes Radha Nunez M.D. - 07/06/2019 3:00 PM CDT SUBJECTIVE CHIEF COMPLAINT / REASON FOR VISIT Dane Sheldon Jr. is a 73 y.o. male who presents for evaluation of Hypertension (3 week follow up to adding medication losartin 25 mg) and Follow- up (recheck of leision on scalp). HISTORY OF PRESENT ILLNESS At his last visit he was prescribed losartan 25 mg once daily to address hypertension. He was given 50 mg at the pharmacy which she has been taking without difficulty. Also had a lesion on his scalp which we were going to follow. He comes in for recheck. OBJECTIVE BP 132/74 Pulse 80 Temp 36.5 ??C (Temporal) Resp 18 Ht 179.5 cm Wt 84.6 kg BMI 26.27 kg/m?? PHYSICAL EXAM GENERAL: Patient is alert and oriented, well groomed and appropriately dressed. HEART: Regular rate and rhythm without murmur. LUNGS: Clear without wheeze crackle or rhonchus. SKIN: Previously identified crusted areas on the scalp have healed. No skin lesions remain. ASSESSMENT/PLAN #1 Lesion Scalp No skin lesions remain. He will continue to monitor. #2 Hypertension Essential Primary Blood pressure is improved. Continue 50 mg daily of losartan. STANT INFANT TEACHER documented in this encounter Plan of Treatment Upcoming Encounters Date Type Specialty Care Team Description 07/22/2022 Office Visit Urology Alexy Yuan M .D. [address] [place], [place] [phone] (Meir cronin) 07/22/2022 Appointment Radiation Oncology Sun Hope M.D., Ph.D. [address] [place], [place] [phone] (Meir cronin) documented as of this encounter Procedures Procedure Name Priority Date/Time Associated Diagnosis Comme nts BASIC METABOLIC Routine 07/06/2019 3:58 PM Hypertension Result s for this PANEL, S/P CDT Essential Primary procedure are in the results section. documented in this encounter Results Basic Metabolic Panel (07/06/2019 3:58 PM CDT) P athologist Signature Potassium, S 4.2 3.6 - 5.2 07/06/2019 OW[place] mmol/L 6:09 PM CDT Sodium, S 143 135 - 145 07/06/2019 [place] mmol/L 6:09 PM CDT Chloride, S 105 98 - 107 07/06/2019 [place] mmol/L 6:09 PM CDT Bicarbonate, S 29 22 - 29 07/06/2019 [place] mmol/L 6:09 PM CDT Anion Gap 9 7 - 15 07/06/2019 [place] 6:09 PM CDT BUN (Blood Urea 16 8 - 24 07/06/2019 [place] Nitrogen), S mg/dL 6:09 PM CDT Creatinine 0.77 0.74 - 07/06/2019 [place] 1.35 mg/dL 6:09 PM CDT eGFR-Non >90 >=60 07/06/2019 [place] Black/ mL/min/BSA 6:09 PM CDT Jordanian Comment: ----ADDITIONAL INFORMATION---- Estimated GFR calculated using the 2009 CKD_EPI creatinine equation. eGFR-Black/ >90 >=60 mL/min/BSA 2018 6:09 PM CDT OW[place] Comment: ----ADDITIONAL INFORMATION---- Estimated GFR calculated using the 2009 CKD_EPI creatinine equation. Calcium, Total, S 9.4 8.8 - 10.2 mg/dL 07/06/2019 6:09 PM CDT OW[place] Glucose, S 83 70 - 140 mg/dL 07/06/2019 6:09 PM CDT O GARTH Specimen Anatomical Collection Method Collection Time Receive d Time (Source) Location / / Volume Laterality Blood (Blood, 07/06/2019 3:58 PM 07/06/20 19 5:40 Venous) CDT PM CDT Radha Nunez M.D. LAB BLOOD ADD-ON Performing Organization Address City/State/ZIP Code Phon e Number [facility]- [address] [place] [address] [facility] [place] [address] System in [place] [address] documented in this encounter Visit Diagnoses Diagnosis Hypertension Essential Primary - Primary Lesion Scalp documented in this encounter Care Teams Civil Laboratory Technician Relationship Specialty Start Date End Date Radha Nunez M.D. PCP - General Family Medicine 12/16/18 10/23/[address] [place] [phone] documented as of this encounter
--- OUTSIDE RECORDS SUMMARY | 2022-07-07 12:01 | XMS_ITS | Encounter Summary ---
:1945 Author Organization [facility] Address [address] [place] [address] Care Team Providers Name Role Phone Radha Nunez M.D. Primary Care Provider [phone] Encounter Details Date Type Department Care Team Description 06/19/2019 Clinical Communication Department of Family Girma Braden [facility], Radha Whitt [facility], in Michael Butts [place] [address] [place] [phone] Social History Tobacco Use Types Packs/Day Years Used Date Smoking Tobacco: Never Smokeless Tobacco: Never Alcohol Habits Answer Date Recorded How often do you have a drink containing 4 or more times a w [place] 02/05/2022 alcohol? How many drinks containing alcohol [...] have completed or the highest Doreen, MEd, MEDICARE SALES EXECUTIVE, EMELYN) degree you have received? Sex Assigned at Date Recorded Male 03/27/2018 8:35 PM CDT documented as of this encounter Plan of Treatment Upcoming Encounters Date Type Specialty Care Team Description 07/22/2022 Office Visit Urology Alexy Yuan M .D. [address] [place], [place] [phone] (Wo rk) 07/22/2022 Appointment Radiation Oncology Sun Hope M.D., Ph.D. [address] [place], [place] [phone] (Wo rk) documented as of this encounter Visit Diagnoses Not on filedocumented in this encounter Care Teams Lock Up Worker Relationship Specialty Start Date End Date Radha Nunez M.D. PCP - General Family Medicine 12/16/18 10/23/20 [address] [place] [phone] documented as of this encounter
--- OUTSIDE RECORDS SUMMARY | 2022-07-07 12:01 | XMS_ITS | Encounter Summary ---
:1945 Author Organization [facility] Address [address] [place] [address] Care Team Providers Name Role Phone Radha Nunez M.D. Primary Care Provider [phone] Reason for Visit Reason Comments COVID Inquiry Encounter Details Date Type Department Care Team Description 04/15/2020 Clinical Communication Department of Family Girma Nieto Medicine, Radha Perry, [facility], in Michael Foreman [place] [address] [place] [phone] Social History Tobacco Use Types Packs/Day Years Used Date Smoking Tobacco: Never Smokeless Tobacco: Never Alcohol Habits Answer Date Recorded How often do you have a drink containing 4 or more times a w [place] 02/05/2022 alcohol? How many drinks containing alcohol [...] have completed or the highest Doreen, MEd, DIVISIONAL STOREKEEPER, EMELYN) degree you have received? Sex Assigned at Date Recorded Male 03/27/2018 8:35 PM CDT documented as of this encounter Miscellaneous Notes Telephone Encounter - Charley Puentes Abhishek - 04/15/2020 8:10 AM CDT ([facility] and [facility] locations only: If the patient is not having symptoms and is requesting COVID-19 Nasal Swab testing only, use the process listed in the COVID-19 Patient Requesting COVID PCR Test OTG COVID-19 [place] Patient Requesting COVID PCR Test). 1. Do [...] last 14 days? no Route reply to: na Scheduling Contact Number: [phone] documented in this encounter Plan of Treatment Upcoming Encounters Date Type Specialty Care Team Description 07/22/2022 Office Visit Urology Alexy Yuan M .D. [address] [place], [place] [phone] (Wo rk) 07/22/2022 Appointment Radiation Oncology Sun Hope M.D., Ph.D. [address] [place], [place] [phone] (Wo rk) documented as of this encounter Visit Diagnoses Not on filedocumented in this encounter Care Teams Hot Saw Helper Relationship Specialty Start Date End Date Radha Nunez M.D. PCP - General Family Medicine 12/16/18 10/23/20 [address] [place] [phone] documented as of this encounter
--- OUTSIDE RECORDS SUMMARY | 2022-07-07 12:01 | XMS_ITS | Encounter Summary ---
:1945 Author Organization [facility] Address [address] [place] [address] Care Team Providers Name Role Phone Radha Nunez M.D. Primary Care Provider Encounter Details Date Type Department Care Team Description 04/19/2020 Hospital Encounter Department of Radiology Aric nath, Pain Hip Left in [facility] Renuka Monson [address] [place] [address] [place], [place] [phone] Social History Tobacco Use Types Packs/Day Years Used Date Smoking Tobacco: Never Smokeless Tobacco: Never Alcohol Use Standard Drinks/Week Comments Yes 6 (1 standard drink = 0.6 oz pure alcoho l) Alcohol Habits Answer Date Recorded How often do you have a drink containing 4 or more times a w mcgrath 02/05/2022 alcohol? How many drinks containing alcohol [...] have completed or the highest Doreen, MEd, SCRUB TECH, EMELYN) degree you have received? Sex Assigned [...] Note - Ermias Gamez D.O. - 04/19/2020 3:41 PM CDT Call patient following information. Your hip shows moderate to severe degeneration and arthritis on the right side. You may benefit fromorthopedic consultation, and possible hip injection versus surgical intervention. If you are interested in the referral, I am happy to place this for you within the [facility] system. Electronically signed by: Ermias Gamez D.O. 04/19/20 3:41 PM CDT documented in this encounter Plan of Treatment Upcoming Encounters Date Type Specialty Care Team Description 07/22/2022 Office Visit Urology Alexy Yuan M .D. [address] [place] [phone] (Meir cronin) 07/22/2022 Appointment Radiation Oncology Sun Hope M.D., Ph.D. [address] [place] [phone] (Meir cronin) documented as of this encounter Procedures Procedure Name Priority Date/Time Associated Comments Diagnosis DX HIP AND PELVIS RAD - Routine 04/19/2020 8:37 Pain Hip Left Resul ts for this LEFT 2-3 VIEWS (most inpatients AM CDT procedure are [...] changes visualize d lower lumbar spine. Ermias [facility] PROC EDURES documented in this encounter Visit Diagnoses Diagnosis Pain Hip Left documented in this encounter Care Teams Cow Washer Relationship Specialty Start Date End Date Radha Nunez M.D. PCP - General Family Medicine 12/16/18 10/23/[address] [place] [phone] documented as of this encounter
--- OUTSIDE RECORDS SUMMARY | 2022-07-07 12:01 | XMS_ITS | Encounter Summary ---
:1945 Author Organization [facility] Address [address] [place] [address] Care Team Providers Name Role Phone Radha Nunez M.D. Primary Care Provider Encounter Details Date Type Department Care Team Description 02/28/2020 Clinical Communication Department of Internal [facility] Medicine in [facility] D[facility] [address] [place] [phone] Social History Tobacco Use Types Packs/Day Years Used Date Smoking Tobacco: Never Smokeless Tobacco: Never Alcohol Habits Answer Date Recorded How often do you have a drink containing 4 or more times a w eyak 02/05/2022 alcohol? How many drinks containing alcohol [...] or relatives? How often do you attend voodoo or More than 4 times per year 04/15/2021 congregation services? Do you belong to any clubs or Yes 02/05/2022 organizations such as voodoo groups, unions, fraternal or athletic groups, or [...] have completed or the highest Doreen, MEd, RUG TOUCH UP PAINTER, EMELYN) degree you have received? Sex Assigned at Date Recorded Male 03/27/2018 8:35 PM CDT documented as of this encounter Miscellaneous Notes Telephone Encounter - Beatriz Brody - 02/28/2020 12:18 PM CDT (Note for [facility] locations only: If the patient states they are asking for testing because attended a protest, miller, community cleanup or other mass gathering in the last 7 days and is asking for testing, complete the below questions and transfer to the COVID Nurse Line). In the past 30 days have you had a swab for COVID that tested positive? no Route reply to: Scheduling Contact Number: documented in this encounter Plan of Treatment Upcoming Encounters Date Type Specialty Care Team Description 07/22/2022 Office Visit Urology Alexy Yuan M .D. 200 [place], [place] [phone] (Meir cronin) 07/22/2022 Appointment Radiation Oncology Sun Hope M.D., Ph.D. [address] [place], [place] [phone] (Meir cronin) documented as of this encounter Visit Diagnoses Not on filedocumented in this encounter Care Teams Drive Man Relationship Specialty Start Date End Date Radha Nunez M.D. PCP - General Family Medicine 12/16/18 10/23/[address] [phone] documented as of this encounter
--- OUTSIDE RECORDS SUMMARY | 2022-07-07 12:01 | XMS_ITS | Encounter Summary ---
:1945 Author Organization [facility] Address [address] [place] [address] Care Team Providers Name Role Phone Kris Robles M.D., M.B.A. Primary Care Provider Encounter Details Date Type Department Care Team Description 02/28/2020 Clinical Communication [facility] [place] Renuka Monson [facility], in [facility] [address] [place], [place] [address] [facility] [address] [place], [place] [phone] (Work) [phone] Social History Tobacco Use Types Packs/Day Years Used Date Smoking Tobacco: Never Smokeless Tobacco: Never Alcohol Habits Answer Date Recorded How often do you have a drink containing 4 or more times a w venetie 02/05/2022 alcohol? How many drinks containing alcohol [...] completed or the highest Doreen, MEd, DIRECTOR OF PROGRAMMING, EMELYN) degree you have received? Sex Assigned at Date Recorded Male 03/27/2018 8:35 PM CDT documented as of this encounter Miscellaneous Notes Telephone Encounter - Yoana Chakraborty L.P.N. - 03/04/2020 12:09 PM CDT SUBJECTIVE CHIEF COMPLAINT / REASON FOR CALL No chief complaint on file. Information Discussed Patient was calling to ask about pre-visit labwork. Advised patient that provider would like to see the patient first before ordering labs. Patient is very frustrated with not only this process but with changing providers recently. He is unsure of what provider he should see. Advised that he can call back for assistance in changing his appointments if needed. No further questions. PLAN Disposition/Recommendation: self-care is appropriate at this time, patient encouraged to call back with questions Information/Education: patient/caller able to teach back Caller agreeable to plan of care: yes The following references were used: provider Dr. Wilcox Telephone Encounter - Savannah Atkins L.P.N. - 03/04/2020 10:37 AM CDT Left message to call back Telephone Encounter - Yoana Chakraborty L.P.N. - 02/28/2020 2:39 PM CDT Left message to call back Telephone Encounter - Ermias Gamez D.O. - 02/28/2020 2:01 PM CDT Please inform the patient that I am not accepting new patients at this time, especially that he already has an assigned provider. I am happy to address any new concerns. I usually order labs after I meet a patient for the 1st time. I do like to discuss with the patient any new concerns, review medications and history prior to ordering labs. Electronically signed by: Ermias Gamez D.O. 02/28/20 2:03 PM CDT Telephone Encounter - Beatriz Brody - 02/28/2020 12:11 PM CDT Reason for Communication: Patient scheduled physical for 04/16/2020 and would like to have labs done prior so results are back. Patient would like PSA for sure and other labs that had previously been ordered by Dr Rayo and Dr Reaves from [place]. Please place order and call when ready to schedule. Current Can Nursing/Provider leave a detailed message: Did the patient refuse triage through Nurse line? (for symptom based concerns): Action Needed: phone call Name of Medication (if relevant): documented in this encounter Plan of Treatment Upcoming Encounters Date Type Specialty Care Team Description 07/22/2022 Office Visit Urology Alexy Yuan M .D. [address] [place], [place] [phone] (Wo rk) 07/22/2022 Appointment Radiation Oncology Sun Hope M.D., Ph.D. [address] [place], [place] [phone] (Wo rk) documented as of this encounter Visit Diagnoses Not on filedocumented in this encounter Care Teams Drafter Civil (Cad) Relationship Specialty Start Date End Date Kris Robles M.D., M.B.A. PCP - General Internal Medicine 01/15/21 02/25/22 [address], [place] [phone] documented as of this encounter
--- OUTSIDE RECORDS SUMMARY | 2022-07-07 12:01 | XMS_ITS | Encounter Summary ---
:1945 Author Organization [facility] Address [address] [place] [address] Care Team Providers Name Role Phone Radha Nunez M.D. Primary Care Provider Reason for Referral Outpatient (Routine) - Closed Specialty Diagnoses / Procedures Referred By Contact Refer red To Contact Diagnoses Hypertension Essential Primary ALEX Nunez [facility] Procedures ECG 12 [address], [place] [phone] Referral ID Status Reason Start Date Expiration Date Visits Requ ested Visits Authorized [id number] Closed 06/16/2019 06/15/2020 1 1 utpatient (Routine) - Closed Specialty Diagnoses / Procedures Referred By Contact Refer [email or web address] To Contact Family Medicine Diagnoses Lesion Scalp ALEX Nunez [facility] [address], [place] [phone] Referral ID Status Reason Start Date Expiration Date Visits Requ ested Visits Authorized [id number] Closed 06/16/2019 06/15/2020 1 1 Reason for Visit Reason Comments Other sore on head not healing x 1 month Hypertension elevated blood pressures Encounter Details Date Type Department Care Team Description 06/16/2019 [facility] Les ion Scalp (Primary Dx); Medicine, Radha Tang, Hyperten jeremy Essential Primary; Clinic, in [place] Anxiety Generalized Disorder [place] 0 [facility] [address] [place] [phone] Social History Tobacco Use Types Packs/Day Years Used Date Smoking Tobacco: Never Smokeless Tobacco: Never Alcohol Habits Answer Date Recorded How often do you have a drink containing 4 or more times a w karuk 02/05/2022 alcohol? How many drinks containing alcohol [...] have completed or the highest Doreen, MEd, DESIGN AGENT, EMELYN) degree you have received? Sex Assigned at Date Recorded Male 03/27/2018 8:35 PM CDT documented as of this encounter Last Filed Vital Signs Vital Sign Reading Time Taken Comments Blood Pressure 142/70 06/16/2019 11:09 AM CDT Pulse 58 06/16/2019 11:09 AM CDT Temperature 36.3 ??C (97.3 ??F) 06/16/2019 11:09 AM CDT Respiratory Rate 16 06/16/2019 11:09 AM CDT Oxygen Saturation - - Inhaled Oxygen Concentration - - Weight 84.8 kg (187 lb 1 oz) 06/16/2019 11:09 AM CDT Height 179.5 cm (5' 10.67) 06/16/2019 11:09 AM CDT Body Mass Index 26.33 06/16/2019 11:09 AM CDT documented in this encounter Progress Notes Radha Nunez M.D. - 06/16/2019 11:15 AM CDT SUBJECTIVE Chief Complaint Patient presents with ??? Other sore on head not healing x 1 month ??? Hypertension elevated blood pressures HISTORY OF PRESENT ILLNESS Dane Sheldon JrJulian is a 73 y.o. male who presents to the clinic today for a sore on his head. Of note, this appointment was made to discuss a sore on his scalp. He brought up many other concerns that he wished to discuss today including his blood pressure, anxiety, and feeling off. Due to scheduling, I did not have enough time to discuss all of his concerns and asked if we could discuss this again at his follow up visit. In case of the sore, he knows that it has been there for about a month and he has scratched the scaboff a few times. He got his hair cut about a week ago and the political science chair recommended that he have this evaluated. He last scratched the scab off 3-4 days ago. He has been noticing some higher blood pressures. It has gone up since his stent placements. He has not been checking his blood pressure regularly at home. His blood pressure tends to be in the 140s-150s. He has also had a sense of being a little off for the past few days. He got a blood pressure at home in the 170s and it gradually came down to the 140s/80s. He continues to struggle with anxiety. He has started therapy, but he has not connected with this therapist. He worries about his health and his family. He also states that he has been feeling off. He does not think this is completely related to his anxiety. The patient denies any additional questions or concerns at this time. REVIEW OF SYSTEMS Please see HPI for pertinent positives, otherwise rest of ROS negative. CURRENT MEDICATIONS Current Outpatient Medications Medication Sig Dispense Refill ??? aspirin 81 mg chewable tablet Chew 1 tablet daily. ??? atorvastatin (LIPITOR) 80 mg tablet Take 1 tablet (80 mg total) by mouth daily. 90 tablet 3 ??? CHOLECALCIFEROL, VITAMIN D3, ORAL Take 1 capsule by mouth daily. Dose unknown ??? metoprolol succinate (TOPROL-XL) 25 mg 24 hr tablet Take 1 tablet (25 mg total) by mouth daily. 90 tablet 3 ??? nitroglycerin (NITROSTAT) 0.[address] 1 tablet (0.4 mg total) under the tongue as needed for chest pain. Place 1 tab under the tongue at first sign of chest pain. If no relief in 5 min, call 911. Repeat dose every 5 min up to 2 additional doses if chest pain continues. 25 tablet 11 ??? famciclovir (FAMVIR) 125 mg tablet Take 1 tablet by mouth as directed. One tablet twice daily for 5 days as needed for rash ??? losartan (COZAAR) 100 mg tablet Take 0.5 tablets (50 mg total) by mouth daily. 30 tablet 0 No current facility-administered medications for this visit. ALLERGIES / CONTRAINDICATIONS Allergies Allergen Reactions ??? Pollen Extracts Other (see comments) Sneezing MEDICAL HISTORY Past Medical History: Diagnosis Date ??? Coronary Artery Disease (Unspecified) ??? Fracture Forearm Closed Initial bilateral, one by description was an open fracture, but did not require any surgery ??? Herpes Simplex Labialis recurrent ??? Hyperglycemia ??? Hyperlipidemia ??? Neuropathy Peripheral etiology not clear ??? Osteoarthritis ??? Pain Chest Atypical with negative sestamibi 07/02/2014 at [facility] ??? Paresthesia hospitalization for face paresthesia at [facility] in the distant past, no residual SURGICAL HISTORY Past Surgical History: Procedure Laterality Date ??? ARTHROSCOPY KNEE Left 05/13/2006 secondary to mensical injury ??? CATARACT EXTRACTION W/ INTRAOCULAR LENS IMPLANT Left 02/12/2016 ??? CORONARY STENT PLACEMENT 2017 ??? TONSILLECTOMY N/A as a child PREVENTIVE SERVICES: Social History Tobacco Use ??? Smoking status: Never Smoker ??? Smokeless tobacco: Never Used Substance Use Topics ??? Alcohol use: Not on file ??? Drug use: Not on file OBJECTIVE VITAL SIGNS BP 142/70 Pulse (!) 58 Temp 36.3 ??C (Temporal) Resp 16 Ht 179.5 cm Wt 84.8 kg BMI 26.33kg/m?? PHYSICAL EXAMINATION General: Patient is alert and oriented times three, in no acute distress, good hygiene and is dressed appropriately. Heart: Regular rate and rhythm without murmur. Lungs: Clear to auscultation. Extremities: Within normal limits. Skin: Just to the left of midline in the occipitoparietal area, is a circular scabbed area, about 5 mm in diameter, no rolled edges or central depression. ASSESSMENT / PLAN #1 Lesion Scalp PLAN: Discussed the importance of him not picking at this. He will return in 3 weeks for a recheck and possible biopsy if this area has not helped or appears suspicious. #2 Hypertension Essential Primary PLAN: EKG is obtained today; will notify patient of results. He will continue with metoprolol succinate 25 mg once daily. Will also add losartan 25 mg once daily. He will return in 3 weeks for a recheck. #3 Anxiety Generalized Disorder PLAN: Discussed the possibility of adding medication in addition to his therapy. He will think aboutthis and we will readdress this at his follow up. #4 Follow up PLAN: The patient will contact the clinic with any new or worsening symptoms. ADMINISTRATIVE BILLING: At least 25 minutes of this 30 minute visit were spent in face to face counseling and coordination of care. This document serves as a record of services personally performed by Dr. Radha Nunez.It was created on their behalf by Elisa Zhang, a trained medical and health services manager. The creation of this record is based on the scribe's personal observations and the provider's statements to them. This documenthas been checked and approved by the attending provider. documented in this encounter Miscellaneous Notes Result Encounter Note - Rena Bain L.P.N. - 06/16/2019 11:15 AM CDT Left message for patient to return our call. Result Encounter Note - Carlo King V. C.M.A. - 06/16/2019 11:15 AM CDT Attempted to contact patient and left a voicemail with call back number. Result Encounter Note - Osmin Jimenez - 06/16/2019 11:15 AM CDT Name of person contacted: Patient Relationship to patient: Not applicable Call back number: [phone] Certified Medication Aide: Not applicable Information provided: Called and gave Patient Dr. Rayo's results. Patient needed to move future appt he has with her on 07/06 to a different time so warm transferred him over to scheduling to change that. Patient had no further questions at this time for me. service person/patient received and understood education/information provided: Yes service person/patient agreed to the Plan of Care: Yes documented in this encounter Plan of Treatment Upcoming Encounters Date Type Specialty Care Team Description 07/22/2022 Office Visit Urology Alexy Yuan M .D. 200 [place], [place] [phone] (Meir cronin) 07/22/2022 Appointment Radiation Oncology Sun Hope M.D., Ph.D. 200 [place], [place] [phone] (Meir cronin) Scheduled Referrals Name Type Priority Associated Diagnoses Order [facility] Medicine Outpatient Referral Routine Lesion Scalp Expec savanna: office visit 07/06/2019 (clinic) (Approximate), Expires: 06/16/2022 documented as of this encounter Procedures Procedure Name Priority Date/Time Associated Diagnosis Comme nts ECG Routine 06/16/2019 1:21 PM Hypertension Essential Results for this CDT Primary procedure are i n the results section. documented in this encounter Results ECG 12 Lead (06/16/2019 1:21 PM CDT) P athologist Signature Ventricular Rate 59 BPM MUSE ECG/Min AK Interval 170 ms MUSE QRSD Interval 82 ms MUSE QT Interval 420 ms MUSE QTC Interval 415 ms MUSE P Recluse 16 degrees MUSE R Recluse 27 degrees MUSE T Wave Recluse 21 degrees MUSE Specimen Anatomical Collection Method Collection Time Receive d Time (Source) Location / / Volume Laterality 06/16/2019 12:35 06/16/2019 1:21 PM CDT PM CDT Impressions MUSE - 06/16/2019 1:21 PM CDT Sinus bradycardia Otherwise normal ECG When compared with ECG of 28-MAR-2018 07 :34, No significant change was found Reviewed by BRAIN Vieira Narrative This result has an attachment that is no t available. Procedure Note Deonte Joyner M.D. - 06/16/2019Fo rmatting of this note might be different from the original. IMPRESSION: Sinus bradycardia Otherwise normal ECG When compared with ECG of 28-MAR-2018 07 :34, No significant change was found Reviewed by BRAIN Vieira Radha Nunez M.D. ECG ORDERABLES Performing Organization Address City/State/ZIP Code Phon e Number MUSE MUSE NA documented in this encounter Visit Diagnoses Diagnosis Lesion Scalp - Primary Hypertension Essential Primary Anxiety Generalized Disorder documented in this encounter Care Teams Core Analysis Operator Relationship Specialty Start Date End Date Radha Nunez M.D. PCP - General Family Medicine 12/16/18 10/23/[address] [place] [phone] documented as of this encounter
--- OUTSIDE RECORDS SUMMARY | 2022-07-07 12:01 | XMS_ITS | Encounter Summary ---
:1945 Author Organization [facility] Address [address] [place] [address] Care Team Providers Name Role Phone Radha Nunez M.D. Primary Care Provider Encounter Details Date Type Department Care Team Description 02/26/2020 Clinical Communication Department of Family [facility], Radha Tang, [facility], in [facility] Fore[place] [address] [place] [phone] Social History Tobacco Use Types Packs/Day [...] More than 4 times per year 04/15/2021 mandaeism services? Do you belong to any clubs [...] have completed or the highest Doreen, MEd, ELECTRICIAN MACHINE SHOP, EMELYN) degree you have received? Sex Assigned at Date Recorded Male 03/27/2018 8:35 PM CDT documented as of this encounter Miscellaneous Notes Telephone Encounter - Judy Klein C.M.A. - 02/26/2020 10:30 AM CDT SUBJECTIVE CHIEF COMPLAINT / REASON FOR CALL No chief complaint on file. PLAN The following information was provided: Notified patient of providers to pick from at practice. He is going to look into OW as well to pick new PCP. Information/Education: not applicable The following references were used: other Providers here Telephone Encounter - Judy Klein CJulianMAugusto - 02/26/2020 8:56 AM CDT Left message for patient to return call to clinic. Does the patient need to speak to nursing? yes Action needed: To give patient options on who he can see. Telephone Encounter - Ramy Perez - 02/26/2020 8:40 AM CDT Reason for Communication: Patient calling in he is needing recommendations on who he should take as his PCP. Please call the patient back. Current Can Nursing/Provider leave a detailed message: Did the patient refuse triage through Nurse line? (for symptom based concerns): Action Needed: Please call the patient back Name of Medication (if relevant): documented in this encounter Plan of Treatment Upcoming Encounters Date Type Specialty Care Team Description 07/22/2022 Office Visit Urology Alexy Yuan M .D. [address] [place], [place] [phone] (Wo rk) 07/22/2022 Appointment Radiation Oncology Sun Hope M.D., Ph.D. [address] [place], [place] [phone] (Wo rk) documented as of this encounter Visit Diagnoses Not on filedocumented in this encounter Care Teams Wearing Apparel Presser Relationship Specialty Start Date End Date Radha Nunez M.D. PCP - General Family Medicine 12/16/18 10/23/20 [address] [place] [phone] documented as of this encounter
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
--- OUTSIDE RECORDS SUMMARY | 2022-07-07 12:02 | XMS_ITS | Encounter Summary ---
:1945 Author Organization [facility] Address [address] [place] [address] Care Team Providers Name Role Phone Radha Nunez M.D. Primary Care Provider [phone] Encounter Details Date Type Department Care Team Description 04/13/2019 Orders Only Department of [facility]issel [facility] [address] [phone] (Wo rk) Social History Tobacco Use Types Packs/Day Years Used Date Smoking Tobacco: Never Smokeless Tobacco: Never Alcohol Habits Answer Date Recorded How often do you have a drink containing 4 or more times a w [place] 02/05/2022 alcohol? How many drinks containing alcohol [...] have completed or the highest Doreen, MEd, MUSICAL INSTRUMENT SUPERVISOR, EMELYN) degree you have received? Sex Assigned at Date Recorded Male 03/27/2018 8:35 PM CDT documented as of this encounter Plan of Treatment Upcoming Encounters Date Type Specialty Care Team Description 07/22/2022 Office Visit Urology Alexy Yuan M .D. [address] [place], [place] [phone] (Wo rk) 07/22/2022 Appointment Radiation Oncology Sun Hoep M.D., Ph.D. [address] [place], [place] [phone] (Wo rk) documented as of this encounter Visit Diagnoses Not on filedocumented in this encounter Care Teams Paddle Dyeing Machine Operator Relationship Specialty Start Date End Date Radha Nunez M.D. PCP - General Family Medicine 12/16/18 10/23/[address] [place] [phone] documented as of this encounter
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
--- OUTSIDE RECORDS SUMMARY | 2022-07-07 12:02 | XMS_ITS | Encounter Summary ---
:1945 Author Organization [facility] Address [address] [place] [address] Care Team Providers Name Role Phone Ginger Fernández M.D. Primary Care Provider Reason for Visit Reason Onset Date Comments Medicare Annual Wellness Visit Subsequent 11/10/2018 Encounter Details Date Type Department Care Team Description 11/10/2018 Clinical Communication Department of Kristie Guan Annual Family Medicine, M, R.N. Wellness Visit [facility], Subsequent in [facility] ([address] [phone] Social History Tobacco Use Types Packs/Day Years Used Date Smoking Tobacco: Never Smokeless Tobacco: Never Alcohol Habits Answer Date Recorded How often do you have a drink containing 4 or more times a w [place] 02/05/2022 alcohol? How many drinks containing alcohol [...] or slept in a correction (including now)? Sex Assigned at Date Recorded Male 03/27/2018 8:35 PM CDT documented as of this encounter Miscellaneous Notes Addendum Note - Kristie Guan R.N. - 11/10/2018 3:05 PM CENTRIFUGE SEPARATOR OPERATOR Addended by: KRISTIE GUAN on: 11/10/2018 03:05 PM Modules accepted: Orders RIFUGE SEPARATOR OPERATOR Telephone Encounter - Kristie Guan R.N. - 11/10/2018 12:07 PM CST Called patient to discuss scheduling a Medicare Annual Wellness Visit. Patient interested, will call back to schedule. Order placed. RIFUGE SEPARATOR OPERATOR Telephone Encounter - Kristie Guan R.N. - 11/10/2018 11:27 AM CST Called patient to discuss scheduling a Medicare Annual Wellness Visit. Unable to reach patient, left message for patient to return call to discuss. RIFUGE SEPARATOR OPERATOR documented in this encounter Plan of Treatment Upcoming Encounters Date Type Specialty Care Team Description 07/22/2022 Office Visit Urology Alexy Yuan M .D. [address] [place], [place] [phone] (Wo rk) 07/22/2022 Appointment Radiation Oncology Sun Hope M.D., Ph.D. [address] [place], [place] [phone] (Wo rk) documented as of this encounter Visit Diagnoses Diagnosis Annual Medicare Examination Return - [facility] documented in this encounter Care Teams Road Engineer Relationship Specialty Start Date End Date Ginger Fernández M.D. PCP - General 02/25/17 12/15/18 documented as of this encounter
--- OUTSIDE RECORDS SUMMARY | 2022-07-07 12:02 | XMS_ITS | Encounter Summary ---
:1945 Author Organization [facility] Address [address] [place] [address] Care Team Providers Name Role Phone Ginger Fernández M.D. Primary Care Provider Encounter Details Date Type Department Care Team Description 03/28/2018 Hospital Encounter Department of [facility] Medicine Michael Alanis, Ph. D. Disease Screening and Pathology, [address] [facility], in [place], [place] [address] [address] [facility] [phone] [place], [place] (Work) [phone] Social History Tobacco Use Types Packs/Day Years Used Date Smoking Tobacco: Never Alcohol Habits Answer Date Recorded [...] or slept in a [facility] (including now)? Sex Assigned at Date Recorded Male 03/27/2018 8:35 PM CDT documented as of this encounter Medications at Time of Discharge Medication Sig Dispensed Refills Start Date End Date aspirin 81 mg chewable Chew 1 tablet daily. 0 03/2013 tablet atorvastatin (LIPITOR) Take 1 tablet by 0 017 05/30/2018 80 mg tablet mouth daily. CHOLECALCIFEROL, VITAMIN Take 1 capsule by 0 03/201603/14/2021 D3, ORAL mouth daily. Dose unknown clopidogrel (PLAVIX) 75 Take 1 tablet (75 mg 30 tablet 0 03/29/2018 mg tablet total) by mouth daily. take for 6 months famciclovir (FAMVIR) 125 Take 1 tablet by 0 04/0806/04/2020 mg tablet mouth as directed. One tablet twice daily for 5 days as needed for rash metoprolol succinate Take 1 tablet by 0 7 05/30/2018 (TOPROL-XL) 25 mg 24 hr mouth daily. tablet nitroglycerin Place 1 tablet under 0 07/14/2017 0 03/29/2019 (NITROSTAT) 0.4 mg SL the tongue as needed. tablet Place 1 tab under the tongue at first sign of chest pain. If no relief in 5 min, call 911. Repeat dose every 5 min up to 2 additional doses if chest pain continues. documented as of this encounter Plan of Treatment Upcoming Encounters Date Type Specialty Care Team Description 07/22/2022 Office Visit Urology Alexy Yuan M .D. [address] [place], [place] [phone] (Wo rk) 07/22/2022 Appointment Radiation Oncology Sun Hope M.D., Ph.D. [address] [place], [place] [phone] (Wo rk) documented as of this encounter Procedures Procedure Name Priority Date/Time Associated Diagnosis Comme nts LIPID PANEL, S Routine 03/28/2018 7:24 AM Cardiac Vascular Res ults for this CDT Disease Screening procedure are in the results section. GLUCOSE, FASTING, Routine 03/28/2018 7:24 AM Cardiac Vascular Results for this S/P CDT Disease Screening procedure are in the results section. documented in this encounter Results (ABNORMAL) Glucose, Fasting (03/28/2018 7:24 AM CDT) athologist Signature Glucose, P 104 (H) 70 - 100 03/28/2018 [facility] mg/dL 8:09 AM CDT [facility] Last Intake 12 hr 03/28/2018 [facility] 7:32 AM CDT [facility] Specimen Anatomical Collection Method Collection Time Receive d Time (Source) Location / / Volume Laterality Blood (Blood, 03/28/2018 7:24 AM 03/28/20 18 7:32 Venous) CDT AM CDT [facility] M.D., Ph.D. LAB BLOOD NON ADD-ON Performing Organization Address City/State/ZIP Code Phon e Number [facility] - [address] [place], [place] [address] [facility] (ABNORMAL) Lipid Panel (03/28/2018 7:24 AM CDT) athologist Signature Cholesterol, 102 mg/dL 03/28/2018 [facility] Total 8:16 AM CDT [facility] Comment: ----REFERENCE VALUE---- Desirable: < 200 Borderline high: 200 - 239 High: > or = 240 Triglycerides 70 mg/dL 03/28/2018 8:16 AM CDT [facility] Comment: ----REFERENCE VALUE---- Normal: <150 Borderline high: 150-199 High: 200-499 Very high: > or =500 Cholesterol, HDL, S 39 (L) >=40 mg/dL 03/28/2018 8:16 AM [facility] CDT [facility] Calculated LDL 49 mg/dL 03/28/2018 8:16 AM LACEY Annabelle STEVENSON CDT [facility] Comment: ----REFERENCE VALUE---- Desirable: <100 Above Desirable: 100-129 Borderline high: 130-159 High: 160-189 Very high: > or =190 Cholesterol, Non-HDL, 63 mg/dL 03/28/2018 8:16 AM CDT [facility] Calculated - [facility] Comment: ----REFERENCE VALUE---- Desirable: <130 Above Desirable: 130-159 Borderline high: 160-189 High: 190-219 Very high: > or =220 Specimen Anatomical Collection Method Collection Time Receive d Time (Source) Location / / Volume Laterality Blood (Blood, 03/28/2018 7:24 AM 03/28/20 18 7:32 Venous) CDT AM CDT [facility] M.D., Ph.D. LAB BLOOD ADD-ON Performing Organization Address City/State/ZIP Code Phon e Number [facility] - [address] documented in this encounter Visit Diagnoses Diagnosis Cardiac Vascular Disease Screening documented in this encounter Care Teams Business Development Representative Relationship Specialty Start Date End Date Ginger Fernández M.D. PCP - General 02/25/17 12/15/18 documented as of this encounter
--- OUTSIDE RECORDS SUMMARY | 2022-07-07 12:02 | XMS_ITS | Encounter Summary ---
:1945 Author Organization [facility] Address [address] [place] [address] Care Team Providers Name Role Phone Ginger Fernández M.D. Primary Care Provider Reason for Visit Reason Comments Establish Care patient wishing to establish locally. previously care was completed in [facility] x 20 years Appointment Request (Routine) - Closed Specialty Diagnoses / Procedures Referred By Contact Refer red To Contact Family Medicine Referral ID Status Reason Start Date Expiration Date Visits Requ ested Visits Authorized [id number] Closed 05/09/2018 05/09/2019 1 Encounter Details Date Type Department Care Team Description 05/30/2018 Office Visit Department of [facility] Tori Cor onary Artery Disease (Primary Dx); Medicine, Radha Tang, Hypercho lesterolemia; Clinic, in [place] Need Vaccine Immunization [place] [address] [facility] [address] [phone] Social History Tobacco Use Types Packs/Day Years Used Date Smoking Tobacco: Never Smokeless Tobacco: Never Alcohol Habits Answer Date Recorded How often do you have a drink containing 4 or more times a w [place] 02/05/2022 alcohol? How many drinks containing alcohol [...] or relatives? How often do you attend jew or More than 4 times per year 04/15/2021 nondenominational services? Do you belong to any clubs or Yes 02/05/2022 organizations such as jew groups, unions, fraternal or athletic groups, or [...] or slept in a longterm (including now)? Sex Assigned at Date Recorded Male 03/27/2018 8:35 PM CDT documented as of this encounter Last Filed Vital Signs Vital Sign Reading Time Taken Comments Blood Pressure 132/66 05/30/2018 7:49 AM CDT Pulse 56 05/30/2018 7:49 AM CDT Temperature 36.6 ??C (97.9 ??F) 05/30/2018 7:49 AM CDT Respiratory Rate 20 05/30/2018 7:49 AM CDT Oxygen Saturation - - Inhaled Oxygen Concentration - - Weight 82.8 kg (182 lb 8.7 oz) 05/30/2018 7:49 AM CDT Height 179 cm (5' 10.47) 05/30/2018 7:49 AM CDT Body Mass Index 25.84 05/30/2018 7:49 AM CDT documented in this encounter H&P Notes Radha Nunez M.D. - 05/30/2018 8:00 AM CDT CHIEF COMPLAINT/ REASON FOR VISIT Establish care. HISTORY OF PRESENT ILLNESS Dane HarveyJulian Sheldon Jr. is a 72 y.o. male who presents to the clinic today to establish care. He notesthat last year, he was hiking in [place] and he was struggling and he had significant chest pain. Then when he returned home, he struggled going up and down stairs. Dane also struggles with peripheral neuropathy. He states that he does not necessarily have pain,but they become numb, which he describes as a lack of sensation. He also has significant callouses and he is following with Dr. Peñaloza. Dane has also struggled with his teeth and he has numerous infections. His dentist thinks this ismostly from gum disease. He has had special scraping down, but he is not on any special rinses. There are no further concerns at this time. SYSTEMS REVIEW Please see HPI for pertinent positives, otherwise rest of ROS negative. MEDICATIONS Current Outpatient Prescriptions Medication Sig Dispense Refill ??? aspirin 81 mg chewable tablet Chew 1 tablet daily. ??? atorvastatin (LIPITOR) 80 mg tablet Take 1 tablet by mouth daily. ??? famciclovir (FAMVIR) 125 mg tablet Take 1 tablet by mouth as directed. One tablet twice daily for 5 days as needed for rash ??? metoprolol succinate (TOPROL-XL) 25 mg 24 hr tablet Take 1 tablet by mouth daily. ??? nitroglycerin (NITROSTAT) 0.[address] 1 tablet under the tongue as needed. Place 1 tab under the tongue at first sign of chest pain. If no relief in 5 min, call 911. Repeat dose every 5 min up to 2 additional doses if chest pain continues. ??? CHOLECALCIFEROL, VITAMIN D3, ORAL Take 1 capsule by mouth daily. Dose unknown No current facility-administered medications for this visit. ALLERGIES Allergies Allergen Reactions ??? Pollen Extracts Other (see comments) Sneezing PAST MEDICAL / SURGICAL HISTORY Past Medical History: Diagnosis Date ??? Coronary Artery Disease ??? Fracture Forearm Closed Initial bilateral, one by description was an open fracture, but did not require any surgery ??? Herpes Simplex Labialis recurrent ??? Hyperglycemia ??? Hyperlipidemia ??? Neuropathy Peripheral etiology not clear ??? Osteoarthritis ??? Pain Chest Atypical with negative sestamibi 07/02/2014 at [facility] ??? Paresthesia hospitalization for face paresthesia at [facility] in the distant past, no residual Past Surgical History: Procedure Laterality Date ??? ARTHROSCOPY KNEE Left 05/13/2006 secondary to mensical injury ??? CATARACT EXTRACTION W/ INTRAOCULAR LENS IMPLANT Left 02/12/2016 ??? CORONARY STENT PLACEMENT 2016 ??? TONSILLECTOMY N/A as a child PREVENTIVE SERVICES Lipid panel: 03/28/2018. Cologuard: 04/2017. Immunization History Administered Date(s) Administered ??? HZV (ZOSTAVAX) 09/13/2008 ??? HepA Adult 04/19/2006, 05/11/2007, 06/19/2013 ??? [...] 06/27/2016, 07/12/2017, 05/30/2018 SOCIAL HISTORY Social History Social History ??? Marital status: Spouse name: N/A ??? Number of children: N/A ??? Years of education: N/A Social History Main Topics ??? Smoking status: Never Smoker ??? Smokeless tobacco: Never Used ??? Alcohol use None ??? Drug use: Unknown ??? Sexual activity: Not Asked Other Topics Concern ??? None Social History Narrative He is and they live in [place]. 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 He has a daughter in [place], another daughter in [facility], and a son in [place]. He walks 4-5 miles a day 5days a week. They do winter in [place] and they also spend time with his daughters during the year. History Drug use: Unknown History Alcohol use Not on file FAMILY HISTORY Family History Problem Relation Age of Onset ??? Heart attack Father ??? Heart disease Father ??? Heart disease Paternal Grandfather ??? No Known Problems Mother ??? No Known Problems Sister ??? No Known Problems Brother ??? Colon cancer Neg Hx VITAL SIGNS Vitals: 05/30/18 0749 BP: 132/66 Pulse: (!) 56 Temp: 36.6 ??C Resp: 20 Height: 179 cm Weight: 82.8 kg TempSrc: Temporal Body mass index is 25.84 kg/m??. PHYSICAL EXAMINATION General: Patient is alert and oriented times three, in no acute distress, good hygiene and is dressed appropriately. ASSESSMENT / PLAN #1 Coronary Artery Disease, status post stenting 2016 #2 Hypercholesterolemia PLAN: Discussed we will continue to keep good control of his hyperlipidemia and blood pressure. If he develops diabetes, we would need to keep excellent control of this as well. Also discussed that he could establish care with cardiology locally for annual review. #3 Need Vaccine Immunization PLAN: High dose flu shot administered today. He is also due for Pneumovax-23 and Shingrix and he will receive these at a later date. Follow up The patient will contact the clinic with any new or worsening symptoms. ADMINISTRATIVE BILLING 25 minutes of this 30 minute visit was spent in face to face counseling and coordination of care. This document serves as a record of services personally performed by Radha Rayo MD. It was created on their behalf by lEisa Zhang, a trained medical administrative assistant. The creation of this record is based on the scribe's personal observations and the provider's statements to them. This document has been ch ecked and approved by the attending provider. documented in this encounter Plan of Treatment Upcoming Encounters Date Type Specialty Care Team Description 07/22/2022 Office Visit Urology Alexy Yuan M .D. [address] [place], [place] [phone] (Wo ) 07/22/2022 Appointment Radiation Oncology Sun Hope M.D., Ph.D. [address] [place] [phone] (Wo rk) documented as of this encounter Visit Diagnoses Diagnosis Coronary Artery Disease (Unspecified) - Primary Hypercholesterolemia Need Vaccine Immunization documented in this encounter Care Teams Dry Cleaning Teacher Relationship Specialty Start Date End Date Ginger Fernández M.D. PCP - General 02/25/17 12/15/18 documented as of this encounter
--- OUTSIDE RECORDS SUMMARY | 2022-07-07 12:02 | XMS_ITS | Encounter Summary ---
:1945 Author Organization [facility] Address [address] [place] [address] Care Team Providers Name Role Phone Radha Nunez M.D. Primary Care Provider [phone] Reason for Visit Reason Comments Pain Appointment Request (Routine) - Closed Specialty Diagnoses / Procedures Referred By Contact Refer red To Contact Orthopedic Surgery Referral ID Status Reason Start Date Expiration Date Visits Requ ested Visits Authorized [id number] Closed 05/16/2019 05/15/2020 1 1 Encounter Details Date Type Department Care Team Description 05/29/2019 Comprehensive Visit Department of Jaime Harrell Prima ry Osteoarthritis Orthopedic Surgery Michael Hip Left (Primary Dx) in [address] [place] [phone] [phone] Social History Tobacco Use Types Packs/Day Years [...] or the highest Doreen, MEd, DIRECTOR OF TAX SERVICES, EMELYN) degree you have received? Sex Assigned at Date Recorded Male 03/27/2018 8:35 PM CDT documented as of this encounter Last Filed Vital Signs Vital Sign Reading Time Taken Comments Blood Pressure 138/70 05/29/2019 8:17 AM CDT Pulse 72 05/29/2019 8:17 AM CDT Temperature - - Respiratory Rate - - Oxygen Saturation - - Inhaled Oxygen Concentration - - Weight 84.3 kg (185 lb 13.6 oz) 05/29/2019 8:17 AM CDT Height - - Body Mass Index 25.45 03/29/2019 8:48 AM CDT documented in this encounter Consult Notes Jaime Harrell M.D. - 05/29/2019 8:30 AM CDT Pain reported: Site 1 Pain Score: 6, Pain Location: Hip, Pain Orientation: Left, Pain Descriptors: Aching, Sore, Tender, Pain Frequency: Intermittent, (05/29/19 0815 : Alie Bocanegra, L.P.N.) REASON FOR CONSULT Dane Sheldon is a 73 y.o. male who presents for evaluation of Pain of the Left Hip and is under the care of Radha Nunez M.D.. HISTORY OF PRESENT ILLNESS This is a 73-year-old man with complaints of left hip pain of about 2 months duration. There is no history of injury or trauma. He initially attributed this to some leg left type exercises that he was doing. Does have a cardiac history and is important for him to be in a rehab protocol and this is limited his ability to walk. Walks with a limp generally and has pain when he attempts to play golf. Generally the pain is a little bit better in the morning. He has been evaluated and treated in [place] for this initially with physical therapy for exercises with a period of rest and a trial of oral NSAIDs. He did have radiographic evaluation as well and confirmed arthritis. The treatment so far has not been effective. His current list of health issues include: #1 Primary Osteoarthritis Hip Left #2 Hyperlipidemia #3 Coronary Artery Disease Without Angina Pectoris His surgical history is notable for: Past Surgical History: Procedure Laterality Date ??? ARTHROSCOPY KNEE Left 05/13/2006 secondary to mensical injury ??? CATARACT EXTRACTION W/ INTRAOCULAR LENS IMPLANT Left 02/12/2016 ??? CORONARY STENT PLACEMENT 2016 ??? TONSILLECTOMY N/A as a child Tobacco history is Social History Tobacco Use Smoking Status Never Smoker Smokeless Tobacco Never Used . The following portions of the patient's history were reviewed and updated as appropriate: allergies,current medications, family history, medical history, social history, surgical history and problem list. REVIEW OF SYSTEMS Gastrointestinal: Positive for diarrhea. Musculoskeletal: Positive for arthralgias, back pain and pain or stiffness in the joints. All other systems reviewed and are negative. The following systems were negative: Constitutional, Skin, Eyes, ENT, CV, Respiratory, , Hematologic, Neuro, Psych OBJECTIVE PHYSICAL EXAM Ortho Exam Exam the patient is a very pleasant articulate gentleman and in no acute distress. Does walk with a slightly antalgic gait with a Trendelenburg pattern. He has pain in the groin with internal rotation both with the leg extended and flexed. Straight leg raise is negative. DIAGNOSTICS Hemoglobin A1c, B Date Value Ref Range Status 04/01/2017 5.5 4.0 - 5.6 % Final Sedimentation Rate, B Date Value Ref Range Status 04/01/2017 3 0 - 22 MM/1 H Final IMAGING He did have MRI scan and plain x-ray imaging which I reviewed personally independently and does confirm moderately advanced osteoarthritis. Both hips are involved radiographically. ASSESSMENT / PLAN #1 Primary Osteoarthritis Hip Left Her treatment algorithm of osteoarthritis was discussed with the patient as was the natural history of the disease. I think his treatment thus far has been perfectly appropriate and at this point I would recommend a steroid injection under ultrasound guidance. I did discuss this with Dr. Sosa who is inagreement and has agreed to see the patient this afternoon. documented in this encounter Plan of Treatment Upcoming Encounters Date Type Specialty Care Team Description 07/22/2022 Office Visit Urology Alexy Yuan M .D. [address] [place] [phone] (Wo rk) 07/22/2022 Appointment Radiation Oncology Sun Hope M.D., Ph.D. [address] [place] [phone] (Wo rk) documented as of this encounter Results MS ARTHCS ASP/INJ MJR JT W US (05/29/2019 1:00 PM CDT) Specimen (Source) Anatomical Location Collection Method / Collectio n Time Received Time / Laterality Volume Narrative [facility] - 05/29/2019 1:00 PM CDT Guanaco Sosa D.O. ? 05/29/2019 ??1:24 PM Hip site - L hip joint : injection only Date/Time: 05/29/2019 12:56 PM Performed by: Guanaco Sosa D.O. Authorized by: Jaime Harrell M.D. PROCEDURE DETAILS Pre procedure pain score: 3/10 Post procedure pain score: 0/10 Procedure Location hip Hip site: L hip joint Patient position: supine Procedural approach: anterior Procedure performed: injection only Needle gauge: 22 GNeedle length: 4 in. Image guidance Ultrasound The use of direct ultrasound visualizati on of the needle was required (rather than a non-guided injection) to ensure accurate injection delivery and to maximize clinical benefit beyond that obtained with a non-guided injection. ??Additionally, there can be diagnostic specificity when evaluating effectiveness of the injectio n, and for safety purposes to minimize risk of bleeding or injury to s urrounding structures. Images saved: yes Pre-procedure image guidance used to loc alexandr target and identify at risk structures, and plan approach and site w as marked using indelible marker. Probe: convex low/mid-frequency Needle approach: lateral to medial Ultrasound visualization: in-plane Procedural Medication The following medications were administe red at the target site(s) Local anesthetic: 2 mL ropivacaine (PF) 2 mg/mL (0.2 %) Corticosteroid: 80 mg methylPREDNISolone acetate 80 mg/mL CONSENT Consent obtained: written PRE-PROCEDURE DETAILS Procedure purpose: therapeutic Skin preparation: chlorhexidine SEDATION / ANESTHESIA Anesthesia method: local infiltration Local infiltrate type: lidocaine POST-PROCEDURE DETAILS Procedure completed successfully: yes Complications: no apparent complications ?? Jaime Harrell M.D. PROCEDURE/MINOR SURGICAL ORD ERABLES Performing Organization Address City/State/ZIP Code Phon e Number [facility] NA documented in this encounter Visit Diagnoses Diagnosis Primary Osteoarthritis Hip Left - Primar y Primary Osteoarthritis Hip Left documented in this encounter Care Teams Bead Stringer Relationship Specialty Start Date End Date Radha Nunez M.D. PCP - General Family Medicine 12/16/18 10/23/[address] [phone] documented as of this encounter
--- OUTSIDE RECORDS SUMMARY | 2022-07-07 12:02 | XMS_ITS | Encounter Summary ---
:1945 Author Organization [facility] Address [address] [place] [address] Care Team Providers Name Role Phone Radha Nunez M.D. Primary Care Provider [phone] Reason for Visit Reason Onset Date Comments lab orders 12/16/2018 Encounter Details Date Type Department Care Team Description 12/16/2018 Clinical Communication Department of Family Girma Braden lab orders [facility] in [place] [address] [address] [place], [place] [phone] Social History Tobacco Use Types Packs/Day Years Used Date Smoking Tobacco: Never Smokeless Tobacco: Never Alcohol Habits Answer Date Recorded How often do you have a drink containing 4 or more times a w [place] 02/05/2022 alcohol? How many drinks containing alcohol [...] slept in a senior care (including now)? Sex Assigned at Date Recorded Male 03/27/2018 8:35 PM CDT documented as of this encounter Miscellaneous Notes Telephone Encounter - Izabella Nicole, L.P.N. - 12/16/2018 4:33 PM CDT SUBJECTIVE CHIEF COMPLAINT / REASON FOR CALL lab orders Patient is requesting the following information: Lab orders requested PLAN The following information was provided : Notified Wm his orders are in and ready for scheduling Information: patient/caller able to repeat back in their own words The following references were used: provider Dr Rayo Telephone Encounter - Radha Nunez M.D. - 12/16/2018 4:12 PM CDT You can notify him that lab orders are in. Telephone Encounter - Sara Sanchez - 12/16/2018 1:41 PM CDT Reason for Communication: Patient called and scheduled his annual phy with you 03/31, declined AWV. He is asking if you can order labs so he can do those a few days before seeing you. Current [phone] Can Nursing/Provider leave a detailed message: Did the patient refuse triage through Nurse line? (for symptom based concerns): Action Needed: please call Name of Medication (if relevant): documented in this encounter Plan of Treatment Upcoming Encounters Date Type Specialty Care Team Description 07/22/2022 Office Visit Urology Alexy Yaun M .D. [address] [place], [place] [phone] (Wo rk) 07/22/2022 Appointment Radiation Oncology Sun Hope M.D., Ph.D. [address] [place], [place] [phone] (Wo rk) documented as of this encounter Visit Diagnoses Not on filedocumented in this encounter Care Teams Medical Science Liaison Relationship Specialty Start Date End Date Radha Nunez M.D. PCP - General Family Medicine 12/16/18 10/23/20 [address], [place] [address] documented as of this encounter
--- OUTSIDE RECORDS SUMMARY | 2022-07-07 12:02 | XMS_ITS | Encounter Summary ---
:1945 Author Organization [facility] Address [address] [place] [address] Care Team Providers Name Role Phone Radha Nunez M.D. Primary Care Provider [phone] Reason for Visit Reason Onset Date Comments f/u questions from last appt 04/10/2019 Encounter Details Date Type Department Care Team Description 04/10/2019 Clinical Communication Department of Yojana f/u questions from Family Medicine, simone, last appt [facility], in [place], [place] [address] [place] [phone] Social History Tobacco Use Types Packs/Day Years Used Date Smoking Tobacco: Never Smokeless Tobacco: Never Alcohol Habits Answer Date Recorded How often do you have a drink containing 4 or more times a w lower [place] 02/05/2022 alcohol? How many drinks containing alcohol [...] have completed or the highest Doreen, MEd, SPRAY APPLICATOR, EMELYN) degree you have received? Sex Assigned at Date Recorded Male 03/27/2018 8:35 PM CDT documented as of this encounter Miscellaneous Notes Telephone Encounter - Ale Taylor, L.P.N. - 04/11/2019 2:03 PM CDT SUBJECTIVE CHIEF COMPLAINT / REASON FOR CALL f/u questions from last appt INFORMATION DISCUSSED 1) Clarification given to patient on immunizations discussed being pneum 23 and shingles with patient choosing to go to pharmacy to receive these immunizations 2) Patient is requesting referral/consult be submitted to [facility] as discussed at appointment. PLAN Disposition/Recommendation: referral for services cardiology [facility] Information: patient/caller able to repeat back in their own words Caller agreeable to plan of care: yes The following references were used: other patient Telephone Encounter - Carlo King V. C.M.AJulian - 04/10/2019 3:32 PM CDT Attempted to contact patient and left a voicemail with call back number. Telephone Encounter - Sara Sanchez - 04/10/2019 12:30 PM CDT Reason for Communication: Patient called. He had his physical recently and 2 shots were discussed that he would like to clarify what they were supposed to be. Also it was discussed to have a referral to the cardio physician. He asked that nothing be scheduled for him without talking to him first because he will be out of town for a bit. Current Can Nursing/Provider leave a detailed message: yes Did the patient refuse triage through Nurse line? (for symptom based concerns): Action Needed: Please call Name of Medication (if relevant): documented in this encounter Plan of Treatment Upcoming Encounters Date Type Specialty Care Team Description 07/22/2022 Office Visit Urology Alexy Yuan M .D. [address] [place], [place] [phone] (Wo rk) 07/22/2022 Appointment Radiation Oncology uSn Hope M.D., Ph.D. [address] [place], [place] [phone] (Wo rk) documented as of this encounter Visit Diagnoses Not on filedocumented in this encounter Care Teams Gel Coater Relationship Specialty Start Date End Date Radha Nunez M.D. PCP - General Family Medicine 12/16/18 10/23/[address], [place] [address] documented as of this encounter
--- OUTSIDE RECORDS SUMMARY | 2022-07-07 12:02 | XMS_ITS | Encounter Summary ---
:1945 Author Organization [facility] Address [address] [place] [address] Care Team Providers Name Role Phone Radha Nunez M.D. Primary Care Provider [phone] Encounter Details Date Type Department Care Team Description 03/27/2019 Hospital Encounter Department of Gene Dillard ing Examination Diabetes Mellitus; Laboratory Medicine Radha cueva, Hypert ension Essential Primary; in [place] Hyperlipidemia; [place] [address] Screening Examination Prosta te Cancer [address] [place] [phone] Social History Tobacco Use Types Packs/Day Years Used Date Smoking Tobacco: Never Smokeless Tobacco: Never Alcohol Habits Answer Date Recorded How often do you have a drink containing 4 or more times a w [place] 02/05/2022 alcohol? How many drinks containing alcohol [...] or slept in a halfway (including now)? Sex Assigned at Date Recorded Male 03/27/2018 8:35 PM CDT documented as of this encounter Medications at Time of Discharge Medication Sig Dispensed Refills Start Date End Date aspirin 81 mg chewable Chew 1 tablet daily. 0 03/2013 tablet atorvastatin (LIPITOR) Take 1 tablet (80 mg 90 tablet 3 03/29/2019 80 mg tablet total) by mouth daily. CHOLECALCIFEROL, VITAMIN Take 1 capsule by 0 03/201603/14/2021 D3, ORAL mouth daily. Dose unknown famciclovir (FAMVIR) 125 Take 1 tablet by 0 04/0806/04/2020 mg tablet mouth as directed. One tablet twice daily for 5 days as needed for rash metoprolol succinate Take 1 tablet (25 mg 90 tablet 3 05/3003/29/2019 (TOPROL-XL) 25 mg 24 hr total) by mouth tablet daily. nitroglycerin Place 1 tablet under 0 07/14/2017 [...] Urology Alexy Yuan M .D. [address] [place], [place] [phone] (Wo rk) 07/22/2022 Appointment Radiation Oncology Sun Hope M.D., Ph.D. [address] [place] [phone] (Wo rk) documented as of this encounter Procedures Procedure Name Priority Date/Time Associated Diagnosis Comme nts LIPID PANEL, S Routine 03/27/2019 7:37 AM Hyperlipidemia Resul ts for this CDT procedure are i n the results section. PROSTATE-SPECIFIC Routine 03/27/2019 7:37 AM Screening Examina tion Results for this AG (PSA) SCRN, S CDT Prostate Cancer procedur e are in the results section. BASIC METABOLIC Routine 03/27/2019 7:37 AM Screening Examinati on Results for this PANEL, S/P CDT Diabetes Mellitu s procedure are in Hypertension Essential the r esults Primary section. documented in this encounter Results PSA (Prostate-Specific Antigen) Screen (03/27/2019 7:37 AM CDT) P athologist Signature Prostate-Specif 4.0 <=6.5 ng/mL 03/27/2019 ic Ag 11:23 AM CDT Comment: Biotin has been identified by [...] Location / / Volume Laterality Blood (Blood, 03/27/2019 7:37 AM 03/27/20 19 Venous) CDT 10:43 AM CDT Radha Nunez M.D. LAB BLOOD ADD-ON Performing Organization Address City/State/ZIP Code Phon e Number [facility] [address] [place] [address] LAB (ABNORMAL) Lipid Panel (03/27/2019 7:37 AM CDT) athologist Signature Cholesterol, 99 mg/dL 03/27/2019 Total 11:40 AM CDT Comment: ----REFERENCE VALUE---- Desirable: < 200 Borderline high: 200 - 239 High: > or = 240 Triglycerides 65 mg/dL 03/27/2019 11:40 AM CDT Comment: ----REFERENCE VALUE---- Normal: <150 Borderline high: 150-199 High: 200-499 Very high: > or =500 Cholesterol, HDL, S 38 (L) >=40 mg/dL 03/27/2019 11:40 AM CDT Calculated LDL 48 mg/dL 03/27/2019 11:40 AM CDT Comment: ----REFERENCE VALUE---- Desirable: <100 Above Desirable: 100-129 Borderline high: 130-159 High: 160-189 Very high: > or =190 Cholesterol, Non-HDL, Calculated 61 mg/dL 019 11:40 AM CDT Comment: ----REFERENCE VALUE---- Desirable: <130 Above Desirable: 130-159 Borderline high: 160-189 High: 190-219 Very high: > or =220 Specimen Anatomical Collection Method Collection Time Receive d Time (Source) Location / / Volume Laterality Blood (Blood, 03/27/2019 7:37 AM 03/27/20 19 Venous) CDT 10:43 AM CDT Radha Nunez M.D. LAB BLOOD ADD-ON Performing Organization Address City/State/ZIP Code Phon e Number [facility] [address] [place] [address] LAB Basic Metabolic Panel (03/27/2019 7:37 AM CDT) athologist Signature Potassium, S 4.1 3.6 - 5.2 03/27/2019 mmol/L 11:40 AM CDT Sodium, S 144 135 - 145 03/27/2019 mmol/L 11:40 AM CDT Chloride, S 107 98 - 107 03/27/2019 mmol/L 11:40 AM CDT Bicarbonate, S 27 22 - 29 03/27/2019 mmol/L 11:40 AM CDT Anion Gap 10 7 - 15 03/27/2019 11:40 AM CDT BUN (Blood Urea 19 8 - 24 03/27/2019 Nitrogen), S mg/dL 11:40 AM CDT Creatinine 0.80 0.74 - 03/27/2019 1.35 mg/dL 11:40 AM CDT eGFR-Non 89 >=60 03/27/2019 Black/ mL/min/BSA 11:40 AM CDT [place] Comment: ----ADDITIONAL INFORMATION---- Estimated GFR calculated using the 2009 CKD_EPI creatinine equation. eGFR-Black/ >90 >=60 mL/min/BSA 2018 11:40 AM CDT Comment: ----ADDITIONAL INFORMATION---- Estimated GFR calculated using the 2009 CKD_EPI creatinine equation. Calcium, Total, S 9.0 8.8 - 10.2 mg/dL 03/27/2019 11:4 0 AM CDT Glucose, S 108 70 - 140 mg/dL 03/27/2019 11:40 AM CDT Specimen Anatomical Collection Method Collection Time Receive d Time (Source) Location / / Volume Laterality Blood (Blood, 03/27/2019 7:37 AM 03/27/20 19 Venous) CDT 10:43 AM CDT Radha Nunez M.D. LAB BLOOD ADD-ON Performing Organization Address City/State/ZIP Code Phon e Number [facility] [address] [place] [address] LAB documented in this encounter Visit Diagnoses Diagnosis Screening Examination Diabetes Mellitus Hypertension Essential Primary Hyperlipidemia Screening Examination Prostate Cancer documented in this encounter Care Teams Firmware Architect Relationship Specialty Start Date End Date Radha Nunez M.D. PCP - General Family Medicine 12/16/18 10/23/202199 [place] [address] documented as of this encounter
--- OUTSIDE RECORDS SUMMARY | 2022-07-07 12:02 | XMS_ITS | Encounter Summary ---
:1945 Author Organization [facility] Address [address] [place] [address] Care Team Providers Name Role Phone Radha Nunez M.D. Primary Care Provider [phone] Encounter Details Date Type Department Care Team Description 12/16/2018 Orders Only Department of [facility] Nerissa delacruz Artery Disease (Unspecified) (Primary Dx); Medicine, Radha Perry, Nishanti ng Examination Diabetes Mellitus; Clinic, in [place] Screening Examination Prostate Cancer; [place] [address] Hypertension Essential Primary; [address] [place], [place] [phone] Social History Tobacco Use Types Packs/Day Years [...] or slept in a mcc (including now)? Sex Assigned at Date Recorded Male 03/27/2018 8:35 PM CDT documented as of this encounter Plan of Treatment Upcoming Encounters Date Type Specialty Care Team Description 07/22/2022 Office Visit Urology Alexy Yuan M .D. [address] [place], [place] [phone] (Meir cronin) 07/22/2022 Appointment Radiation Oncology Sun Hope M.D., Ph.D. [address] [place] [phone] (Meir rk) documented as of this encounter Results PSA (Prostate-Specific Antigen) Screen (03/27/2019 7:37 AM CDT) athologist Signature Prostate-Specif 4.0 <=6.5 ng/mL 03/27/2019 ic Ag 11:23 AM CDT Comment: Biotin [facility] been [facility] a potential interfering substance. ??Higher concentr ations of biotin may be found in multivitamins, hair/nail supple ments, and workout supplements. ??If the result does not [facility] clinical observations, repeat testing after patient [...] M.D. LAB BLOOD ADD-ON Performing Organization Address City/State/[facility] Phon e Number [facility] [address] [place] [address] LAB (ABNORMAL) Lipid Panel (03/27/2019 7:37 AM [...] Organization Address City/State/ZIP Code Phon e Number [facility] [address] [place] [address] LAB Basic Metabolic Panel (03/27/2019 7:37 AM CDT) P athologist Signature Potassium, S 4.1 3.6 - [...] >=60 03/27/2019 Black/ mL/min/BSA 11:40 AM CDT [place] Comment: ----ADDITIONAL INFORMATION---- Estimated GFR calculated using [...] Organization Address City/State/ZIP Code Phon e Number [facility] [address] [place] [address] LAB documented in this encounter Visit Diagnoses Diagnosis Coronary Artery Disease (Unspecified) - Primary Screening Examination Diabetes Mellitus Screening Examination Prostate Cancer Hypertension Essential Primary Hyperlipidemia documented in this encounter Care Teams Business Services Sales Representative Relationship Specialty Start Date End Date Radha Nunez M.D. PCP - General Family Medicine 12/16/18 10/23/[address] [phone] documented as of this encounter
--- OUTSIDE RECORDS SUMMARY | 2022-07-07 12:02 | XMS_ITS | Encounter Summary ---
:1945 Author Organization [facility] Address [address] [place] [address] Care Team Providers Name Role Phone Ginger Fernández M.D. Primary Care Provider Encounter Details Date Type Department Care Team Description 03/30/2018 Hospital Encounter Department of Eyad Reaves Benig n Prostatic Laboratory Medicine Michael Hyperplasia Without and Pathology, [address] [place] [address], in [place], [place] [address] [address] [facility] [phone] [place], [place] (Work) [phone] Social History Tobacco Use Types Packs/Day Years Used Date Smoking Tobacco: Never Smokeless Tobacco: Never Alcohol Habits Answer Date Recorded How often do you have a drink containing 4 or more times a w [place] 02/05/2022 alcohol? How many drinks containing alcohol [...] slept in a care home (including now)? Sex Assigned at Date Recorded [...] Visit Urology Alexy Yuan M .D. [address] [place] [phone] (Meir cronin) 07/22/2022 Appointment Radiation Oncology Sun Hope M.D., Ph.D. [address] [place] [phone] (Wo rk) documented as of this encounter Visit Diagnoses Diagnosis Benign Prostatic Hyperplasia Without Obs truction documented in this encounter Care Teams Youth Corrections Officer Relationship Specialty Start Date End Date Ginger Fernández M.D. PCP - General 02/25/17 12/15/18 documented as of this encounter
--- OUTSIDE RECORDS SUMMARY | 2022-07-07 12:02 | XMS_ITS | Encounter Summary ---
:1945 Author Organization [facility] Address [address] [place] [address] Care Team Providers Name Role Phone Radha Nunez M.D. Primary Care Provider Encounter Details Date Type Department Care Team Description 06/12/2019 Clinical Communication Department of Family [facility], Radha [facility], in [place] [address] [place] [address] [phone] Social History Tobacco Use Types Packs/Day Years Used Date Smoking Tobacco: Never Smokeless Tobacco: Never Alcohol Habits Answer Date Recorded How often do you have a drink containing 4 or more times a w [place] 02/05/2022 alcohol? How many drinks containing alcohol [...] or relatives? How often do you attend presybeterian or More than 4 times per year 04/15/2021 orthodox services? Do you belong to any clubs or Yes 02/05/2022 organizations such as presybeterian groups, unions, fraternal or athletic groups, or [...] have completed or the highest Doreen, MEd, PRE K LEAD TEACHER, EMELYN) degree you have received? Sex Assigned at Date Recorded Male 03/27/2018 8:35 PM CDT documented as of this encounter Plan of Treatment Upcoming Encounters Date Type Specialty Care Team Description 07/22/2022 Office Visit Urology Alexy Yuan M .D. [address] [place], [place] [phone] (Wo rk) 07/22/2022 Appointment Radiation Oncology Sun Hope M.D., Ph.D. [address] [place], [place] [phone] (Wo rk) documented as of this encounter Visit Diagnoses Not on filedocumented in this encounter Care Teams Key Punch Teacher Relationship Specialty Start Date End Date Radha Nunez M.D. PCP - General Family Medicine 12/16/18 10/23/20 [address] [place] [phone] documented as of this encounter
--- OUTSIDE RECORDS SUMMARY | 2022-07-07 12:02 | XMS_ITS | Encounter Summary ---
:1945 Author Organization [facility] Address [address] [place] [address] Care Team Providers Name Role Phone Ginger Fernández M.D. Primary Care Provider Reason for Visit Reason Onset Date Comments wants to work out post cardiac rehab 07/22/2018 Needs letter 07/22/2018 Encounter Details Date Type Department Care Team Description 07/22/2018 Clinical Department of virgie Humphriess to work out Communication Cardiovascular Blue Harvey Jr., post cardia c Medicine in [facility] rehab; Needs [place] [address] letter [address] [place] [address] [phone] Social History Tobacco Use Types Packs/Day Years [...] or relatives? How often do you attend gnosticist or More than 4 times per year 04/15/2021 nondenominational services? Do you belong to any clubs or Yes 02/05/2022 organizations such as gnosticist groups, unions, fraternal or athletic groups, or [...] or slept in a half-way (including now)? Sex Assigned at Date Recorded Male 03/27/2018 8:35 PM CDT documented as of this encounter Miscellaneous Notes Telephone Encounter - Lena Bernal - 07/25/2018 2:40 PM CST Patient called and it sounds like he is good to go with the rehab facility until November. Nothing for us to do on our end Thanks Lena EURISER OPERATOR Telephone Encounter - Graeme Rebollar - 07/22/2018 4:01 PM CST Mr. Sheldon completed cardiac rehab at [facility]. He now would like to continue to work out there and he called asking that Dr. Humphries send him an auth/clearance letter to continue doing so. This is not rehab, he just wants to continue to work out and he will pay $50 per month to [facility]. He requested this be sent [facility] Records Dept-but Mr. Sheldon did not have the Fax number (phone [phone]). Would be most efficient to send it to Mr. Sheldon email and let him turn in to the facility: [email or web address] EURISER OPERATOR documented in this encounter Plan of Treatment Upcoming Encounters Date Type Specialty Care Team Description 07/22/2022 Office Visit Urology Alexy Yuan M .D. [address] [place] [phone] (Wo rk) 07/22/2022 Appointment Radiation Oncology Sun Hope M.D., Ph.D. [address] [place], [place] [phone] (Wo rk) documented as of this encounter Visit Diagnoses Not on filedocumented in this encounter Care Teams Town Clerk Relationship Specialty Start Date End Date Ginger Fernández M.D. PCP - General 02/25/17 12/15/18 documented as of this encounter
--- OUTSIDE RECORDS SUMMARY | 2022-07-07 12:02 | XMS_ITS | Encounter Summary ---
:1945 Author Organization [facility] Address [address] [place] [address] Care Team Providers Name Role Phone Ginger Fernández M.D. Primary Care Provider Reason for Visit Reason Comments Med Refill Encounter Details Date Type Department Care Team Description 05/30/2018 Refill Department of Cardiovascular Rena Russell M.D. Med Refill Medicine in [place], [place] [address] [place] [phone] Social History Tobacco Use Types Packs/Day Years Used Date Smoking Tobacco: Never Smokeless Tobacco: Never Alcohol Habits Answer Date Recorded How often do you have a drink containing 4 or more times a w kaw 02/05/2022 alcohol? How many drinks containing alcohol [...] More than 4 times per year 04/15/2021 buddhist services? Do you belong to any clubs [...] slept in a nursing home (including now)? Sex Assigned at Date Recorded Male 03/27/2018 8:35 PM CDT documented as of this encounter Plan of Treatment Upcoming Encounters Date Type Specialty Care Team Description 07/22/2022 Office Visit Urology Alexy Yuan M .D. [address] [place], [place] [phone] (Wo rk) 07/22/2022 Appointment Radiation Oncology Sun Hope M.D., Ph.D. [address] [place], [place] [phone] (Wo rk) documented as of this encounter Visit Diagnoses Not on filedocumented in this encounter Care Teams Pigment Making Supervisor Relationship Specialty Start Date End Date Ginger Fernández M.D. PCP - General 02/25/17 12/15/18 documented as of this encounter
--- OUTSIDE RECORDS SUMMARY | 2022-07-07 12:02 | XMS_ITS | Encounter Summary ---
:1945 Author Organization [facility] Address [address] [place] [address] Care Team Providers Name Role Phone Ginger Fernández M.D. Primary Care Provider Reason for Visit Reason Comments Med Refill Encounter Details Date Type Department Care Team Description 03/09/2018 Refill Department of Cardiovascular Rena Russell M.D. Med Refill Medicine in [place], [place] [address] [place] [phone] Social History Tobacco Use Types Packs/Day [...] or slept in a residential (including now)? Sex Assigned at Date Recorded Male 03/27/2018 8:35 PM CDT documented as of this encounter Plan of Treatment Upcoming Encounters Date Type Specialty Care Team Description 07/22/2022 Office Visit Urology Alexy Yuan M .D. [address] [place], [place] [phone] (Wo rk) 07/22/2022 Appointment Radiation Oncology Sun Hope M.D., Ph.D. [address] [place], [place] [phone] (Wo rk) documented as of this encounter Visit Diagnoses Not on filedocumented in this encounter Care Teams Print Producer Relationship Specialty Start Date End Date Ginger Fernnádez M.D. PCP - General 02/25/17 12/15/18 documented as of this encounter
--- OUTSIDE RECORDS SUMMARY | 2022-07-07 12:02 | XMS_ITS | Encounter Summary ---
:1945 Author Organization [facility] Address [address] [place] [address] Care Team Providers Name Role Phone Ginger Fernández M.D. Primary Care Provider Reason for Visit Reason Comments Med Refill Encounter Details Date Type Department Care Team Description 03/10/2018 Refill Department of Cardiovascular YandelJuan nassar M.D., Med Refill Medicine in [place], [place] Ph.D. [address] [facility] [address] [place] [phone] [place], [place] [phone] (Wo rk) Social History Tobacco Use Types [...] slept in a skilled nursing (including now)? Sex Assigned at Date Recorded Male 03/27/2018 8:35 PM CDT documented as of this encounter Plan of Treatment Upcoming Encounters Date Type Specialty Care Team Description 07/22/2022 Office Visit Urology Alexy Yuan M .D. [address] [place], [place] [phone] (Wo rk) 07/22/2022 Appointment Radiation Oncology Sun Hope M.D., Ph.D. [address] [place], [place] [phone] (Wo rk) documented as of this encounter Visit Diagnoses Not on filedocumented in this encounter Care Teams Wood Preparation Supervisor Relationship Specialty Start Date End Date Ginger Fernández M.D. PCP - General 02/25/17 12/15/18 documented as of this encounter
--- OUTSIDE RECORDS SUMMARY | 2022-07-07 12:02 | XMS_ITS | Encounter Summary ---
:1945 Author Organization [facility] Address [address] [place] [id number] Care Team Providers Name Role Phone Ginger Fernández M.D. Primary Care Provider Reason for Referral Outpatient (Routine) - Closed Specialty Diagnoses / Referred By Contact Referred To Contact Procedures Cardiovascular Diseases / Diagnoses [facility] M.B.B.S. Referral ID Status Reason Start Date Expiration Date Visits Requ ested Visits Authorized [id number] Closed 03/29/2018 03/29/2019 1 1 Reason for Visit Appointment Request (Routine) - Closed Specialty Diagnoses / Procedures Referred By Contact Refer red To Contact Cardiovascular Disease Blue Humphries M.D., Ph.D. [address] [place] [address] Referral ID Status Reason Start Date Expiration Date Visits Requ ested Visits Authorized [id number] Closed 01/04/2018 07/03/2018 1 Encounter Details Date Type Department Care Team Description 03/29/2018 Office Visit Department of Blue Humphries (Primary Cardiovascular Medicine Michael Alanis, Ph.D. Dx) in [facility] 200 [facility] 200 [place] [phone] Social History Tobacco Use Types Packs/Day Years [...] or relatives? How often do you attend mosque or More than 4 times per year 04/15/2021 quaker services? Do you belong to any clubs or Yes 02/05/2022 organizations such as mosque groups, unions, fraternal or athletic groups, or [...] Sign Reading Time Taken Comments Blood Pressure 121/71 03/29/2018 7:56 AM CDT BpTRu Pulse 57 03/29/2018 7:56 AM CDT Temperature - - Respiratory Rate - - Oxygen Saturation - - Inhaled Oxygen Concentration - - Weight 81.8 kg (180 lb 5.4 oz) 03/29/2018 7:56 AM CDT Height 179.3 cm (5' 10.59) 03/29/2018 7:56 AM CDT Body Mass Index 25.44 03/29/2018 7:56 AM CDT documented in this encounter Progress Notes Luis Pelayo M.B.B.S. - 03/29/2018 8:00 AM CDT SUBJECTIVE CHIEF COMPLAINT/REASON FOR VISIT Here for followup visit after stent placement in 07/2017 HISTORY OF PRESENT ILLNESS Dane Sheldon Jr. is a 72 y.o. male who is being seen today for follow-up visit. Mr. Sheldon has PMH of HLD, CAD s/p 2 drug eluting stents (one in RCA for 90% lesion and another in mid LAD) came in today for regular follow up visit. Patient has no new complaints or concerns. He finished 24 weeks ofcardiac rehab post PCI and is trying to eat healthy and walk 4-5 miles/day at an average speed of a mile in 15 minutes. Risk Factors for CAD: Tobacco Use: reports that he has never smoked. He does not have any smokeless tobacco history on file. High Blood Pressure: no Diabetes: No Family History: yes Hyperlipidemia: yes Inactivity: no Obesity: no The following portions of the patient's history were reviewed and updated as appropriate: allergies and surgical history. REVIEW OF SYSTEMS Constitutional: Negative for fatigue. Respiratory: Negative for dry cough, dyspnea and wheezing. Cardiovascular: Negative for chest pain, pressure or tightness, swelling in the legs or feet, rapid or fluttering heart beat and shortness of breath when lying flat. Gastrointestinal: Negative for abdominal (belly) pain or cramping. Musculoskeletal: Positive for back pain. Neurological: Positive for numbness or shooting pain in hands, arms, legs, or feet. The following systems were negative: Constitutional, Skin, Eyes, ENT, CV, Respiratory, GI, , Hematologic, Psych OBJECTIVE Vitals: 03/29/18 0756 BP: 121/71 BP Location: Right arm Patient Position: Sitting Cuff Size: Large Pulse: (!) 57 Weight: 81.8 kg Height: 179.3 cm Body mass index is 25.44 kg/m??. PHYSICAL EXAMINATION Constitutional: He appears well-developed and well-nourished. Neck: Normal range of motion. Neck supple. No JVD present. Cardiovascular: Normal rate, regular rhythm, normal heart sounds and intact distal pulses. No murmur heard. Pulmonary/Chest: Effort normal and breath sounds normal. Abdominal: Soft. Bowel sounds are normal. DIAGNOSTICS Chemistry: Lab Results Component Value Date/Time NA 141 07/14/2017 11:57 AM K 4.2 04/01/2017 07:30 AM CL 105 07/14/2017 11:57 AM BUN 14 07/14/2017 11:57 AM CREATININE 0.7 (L) 07/14/2017 11:57 AM EGFR >60 07/05/2015 06:51 AM GLUCOSE 116 07/14/2017 11:57 AM GLUCOSE 90 02/05/2016 10:54 AM ALKPHOS 52 04/01/2017 07:30 AM ALT 20 04/01/2017 07:30 AM BILITOT 0.8 04/01/2017 07:30 AM ANIONGAP 9 07/14/2017 11:57 AM CALCIUM 9.0 04/01/2017 07:30 AM Lipids: Lab Results Component Value Date/Time CHOL 102 03/28/2018 07:24 AM TRIG 70 03/28/2018 07:24 AM HDL 39 (L) 03/28/2018 07:24 AM LDLCALC 49 03/28/2018 07:24 AM ECG: Normal sinus rhythm ASSESSMENT / PLAN #1 Hyperlipidemia Patient is on high intensity atorvastatin Would continue as he is tolerating it well with within normal limit lipid profile Would like to obtain lipid profile with fasting blood sugar before his next visit in one year #2 Coronary Artery Disease Patient has normal sinus rhythm with no ST T abnormality on ECG Normal lipid profile, asymptomatic counseled on high intensity interval exercise training Would like to get a consult with our hebrew teacher And make an appointment with brush sander. Patient antiplatelet therapy on plavix was discussed with his cloth napping supervisor Dr. Shukla and decided to stop it on this visit. The plan of care is discussed with patient and Mr. Sheldon demonstrated good understanding. Patient can followup in one year with [facility] for a regular followup visit. Associated attestation - Blue Humphries M.D., Ph.D. - 03/31/2018 9:58 AM CDT I saw and evaluated the patient, participating in the sotelo portions of the service. I reviewed the resident/fellow???s note. I agree with the resident/fellow???s findings and plan. documented in this encounter Procedure Notes Penny Christiansen CEP - 03/29/2018 8:00 AM CDT EXERCISE PRESCRIPTION: Type: Walk hills Walk indoors Walk outdoors Walk treadmill Frequency: 5-7 sessions per week Intensity: Work at a level that is comfortable but also challenging Rating of Perceived Exertion range (RPE) to 12-15. See Exercise Program Guidelines pg. 18. Time: Warm-up 2-5 minutes Aerobic exercise 45+ minutes Cool-down 2-5 minutes Interval Training: Moderate intensity interval training 60 seconds of higher intensity (RPE 15-17) training followed by 3-5 minutes of lower intensity (RPE 12-15) training 3-5 higher intensity intervals per session Include higher intensity intervals 2-3 sessions per week Progression: Use RPE to guide when to increase work level intensity and duration. See Exercise Program Guidelinespg. 18. Flexibility and Balance: Stretch major muscle groups daily Practice balance exercises 2-5 times per week Strength Training: [employer] Weight machines Sessions per week: 2-3 Repetitions: 12-15 Sets: 2-3 Major muscle groups Other Exercise: Avoid prolonged sitting Mr. Dane Sheldon Jr. was seen to review exercise guidelines and exercise recommendations in conjunction with CV Consultation. Patient's questions were answered. Patient was given these printed materials: Exercise Program Guidelines NC6272 and Interval Training TC2476 Patient exhibited: No Barriers Patient verbalized and demonstrated understanding. Total time spent with patient: 15 minutes Counseling time spent with patient: 15 minutes documented in this encounter Consult Notes Blue Humphries M.D., Ph.D. - 03/29/2018 8:00 AM CDT CARDIOVASCULAR DISEASES CONSULT SUPERVISORY NOTE CHIEF COMPLAINT Follow-up visit ?? HISTORY OF PRESENT ILLNESS I saw this patient together with Dr. Calzada and agree with the documentation in his note from 03/29/2018. Mr. Sheldon is a pleasant 72 y.o. male who we are asked to see for cardiology followup after coronaryartery stent placement in the right coronary artery and mid left anterior descending artery in July of 2017. Symptoms at the time included chest pain with typical and atypical features. A myocardial perfusion imaging study was mildly but newly abnormal. Subsequently, the patient declined participation in cardiac rehabilitation, but has done well without recurrent symptoms. He is currently on aspirin, Plavix, atorvastatin, and metoprolol. PHYSICAL EXAMINATION VITALS Estimated body mass index is 25.44 kg/m?? as calculated from the following: Height as of this encounter: 179.3 cm. Weight as of this encounter: 81.8 kg. Blood Pressure: 121/71 Height: 179.3 cm Weight: 81.8 kg BMI (Calculated): 25.4 kg/m?? General: Alert, oriented, cooperative, in no apparent distress. Heart: Regularly regular rate Extremities: No cyanosis, clubbing, or edema. INVESTIGATIONS REVIEW Labs and diagnostic studies were reviewed. Lab Results Component Value Date WBC 7.7 07/14/2017 HGB 15.9 07/14/2017 HCT 44.3 07/14/2017 MCV 88.1 07/14/2017 PLT 236 07/14/2017 Lab Results Component Value Date NA 141 07/14/2017 K 4.2 04/01/2017 Lab Results Component Value Date CREATININE 0.7 (L) 07/14/2017 ECG: Ecg 12 Lead Result Date: 03/28/2018 Normal sinus rhythm Normal ECG When compared with ECG of 09-JUL-2017 13:18, No significant change was found Chest X-Ray: No results found. ASSESSMENT / PLAN 1. Coronary artery disease 2. History of coronary artery stent placement in July 2017 3. Dyslipidemia on medical therapy 4. Elevated systolic blood pressure, on medical therapy 5. Overweight 6. Suboptimal physical activity I discussed the patient's assessment and plan in detail with Dr. Calzada and agree with the plan documented in Dr Calzada's note from today. After a phone brief discussion with Dr. Shukla, the patient may discontinue Plavix at this point (after total of 6 months -- not unstable at the time of presentation, no bifurcation lesions, no excessively long stents). He should continue low-dose aspirin, and high intensity statin therapy indefinitely. He should continue metoprolol for now. I think there is room for improvement in his diet, calorie intake, and exercise program. To this end, we will make appointment for him with exercise specialists (hopefully yet today) and a dietitian. Per his request we are aiming to make the dietitian appointment today or tomorrow (when he returns fora visit with his primary physician, Dr. Eyad Reaves). We discussed that ???routine?? stress testing is not advised as long as he remains physically active and asymptomatic. We would advise seeing Cardiology once a year for 2-3 years, with fasting blood sugar and lipid screen. I will make the appropriate arrangements. We have clarified that his initial contact for questions about his medical condition should be his primary care team. At the end of our visit today, the patient had ample time to ask questions. All questions were answered to the best of my abilities. For visit today, the patient voiced understanding of, and satisfaction with, his plan of care. Blue Humphries M.D., Ph.D. 03/29/2018 9:59 AM documented in this encounter Plan of Treatment Upcoming Encounters Date Type Specialty Care Team Description 07/22/2022 Office Visit Urology Alexy Yuan M .D. [address] [place], [place] [phone] (Meir cronin) 07/22/2022 Appointment Radiation Oncology Sun Hope M.D., Ph.D. [address] [place], [place] [phone] (Meir cronin) Scheduled Referrals Name Type Priority Associated Diagnoses Order S [facility] Cardiovascular Disease Outpatient Routine Hyperlipidemia Exp ected: - Cardiovascular Referral 03/30/2018, [facility] (preventative Expires : cardiology) consult 03/29/20 21 (clinic) documented as of this encounter Visit Diagnoses Diagnosis Hyperlipidemia - Primary documented in this encounter Care Teams Diamond Die Polisher Relationship Specialty Start Date End Date Ginger Fernández M.D. PCP - General 02/25/17 12/15/18 documented as of this encounter
--- OUTSIDE RECORDS SUMMARY | 2022-07-07 12:02 | XMS_ITS | Encounter Summary ---
:1945 Author Organization [facility] Address [address] [place] [address] Care Team Providers Name Role Phone Ginger Fernández M.D. Primary Care Provider Encounter Details Date Type Department Care Team Description 11/10/2018 Clinical Communication Department of Alissa Samaniego, MedicineKellen M.D. [facility], [address] [phone] (Work) [phone] Social History Tobacco Use Types Packs/Day Years Used Date Smoking Tobacco: Never Smokeless Tobacco: Never Alcohol Habits Answer Date Recorded How often do you have a drink containing 4 or more times a w [place] 02/05/2022 alcohol? How many drinks containing alcohol [...] or slept in a prison (including now)? Sex Assigned at Date Recorded Male 03/27/2018 8:35 PM CDT documented as of this encounter Miscellaneous Notes Telephone Encounter - Sera Morrison - 11/10/2018 11:42 AM CST Reason for Communication:Patient is returning phone call to Kristie Current Can Nursing/Provider leave a detailed message: yes Did the patient refuse triage through Nurse line? (for symptom based concerns) Action Needed: Please call patient back Name of Medication (if relevant): ICAL SERVICES MANAGER documented in this encounter Plan of Treatment Upcoming Encounters Date Type Specialty Care Team Description 07/22/2022 Office Visit Urology Alexy Yuan M .D. [address] [place] [phone] (Meir cronin) 07/22/2022 Appointment Radiation Oncology Sun Hope M.D., Ph.D. [address] [place] [phone] (Wo rk) documented as of this encounter Visit Diagnoses Not on filedocumented in this encounter Care Teams Assistant Director Relationship Specialty Start Date End Date Ginger Fernández M.D. PCP - General 02/25/17 12/15/18 documented as of this encounter
--- OUTSIDE RECORDS SUMMARY | 2022-07-07 12:02 | XMS_ITS | Encounter Summary ---
:1945 Author Organization [facility] Address [address] [place] [address] Care Team Providers Name Role Phone Radha Nunez M.D. Primary Care Provider [phone] Encounter Details Date Type Department Care Team Description 05/29/2019 Ancillary Procedure Department of Physical Medicine and Rehab Social History Tobacco Use Types Packs/Day Years Used Date Smoking Tobacco: Never Smokeless Tobacco: Never Alcohol Habits Answer Date Recorded How often do you have a drink containing 4 or more times a w [place] 02/05/2022 alcohol? How many drinks containing [...] have completed or the highest Doreen, MEd, LINING SETTER, EMELYN) degree you have received? Sex Assigned at Date Recorded Male 03/27/2018 8:35 PM CDT documented as of this encounter Plan of Treatment Upcoming Encounters Date Type Specialty Care Team Description 07/22/2022 Office Visit Urology Alexy Yuan M .D. [address] [place], [place] [phone] (Wo rk) 07/22/2022 Appointment Radiation Oncology Sun Hope M.D., Ph.D. [address] [place], [place] [phone] (Wo rk) documented as of this encounter Procedures Procedure Name Priority Date/Time Associated Diagnosis Comme nts PHYSICAL MEDICINE Routine 05/29/2019 10:10 AM Res ults for this AND REHAB IMAGE CDT procedure ar e in EXAM the results section. documented in this encounter Results Non-Radiology Image-Physical Medicine And Rehab Image Exam (05/29/2019 10:10 AM CDT) Specimen (Source) Anatomical Collection Method Collection Time Re ceived Time Location / / Volume Laterality 05/29/2019 10:08 AM CDT Narrative [facility] - 05/29/2019 1:28 PM CDT This order has been created and [...] on filedocumented in this encounter Care Teams Valve Inspector Relationship Specialty Start Date End Date Radha Nunez M.D. PCP - General Family Medicine 12/16/18 10/23/[address] [phone] documented as of this encounter
--- OUTSIDE RECORDS SUMMARY | 2022-07-07 12:02 | XMS_ITS | Encounter Summary ---
:1945 Author Organization [facility] Address [address] [place] [address] Care Team Providers Name Role Phone Ginger Fernández M.D. Primary Care Provider Reason for Visit Reason Comments Consult Appointment Request (Routine) - Closed Specialty Diagnoses / Procedures Referred By Contact Refer red To Contact General Internal Medicine Referral ID Status Reason Start Date Expiration Date Visits Requ ested Visits Authorized [id number] Closed 01/04/2018 07/03/2018 1 1 Encounter Details Date Type Department Care Team Description 03/30/2018 Comprehensive Visit Integrative Medicine Eyad Reaves Benign Prostatic Hyperplasia Without Obstruction (Primary Dx); and Olga Cuellar M.D. Benign Prostatic Hyperplasia Hypertrophy With Obstruction [place], [place] [address] [facility] [address] [place] [phone] Social History Tobacco Use Types Packs/Day Years [...] or relatives? How often do you attend bahai or More than 4 times per year 04/15/2021 sikhism services? Do you belong to any clubs or Yes 02/05/2022 organizations such as bahai groups, unions, fraternal or athletic groups, or [...] PM CDT documented as of this encounter H&P Notes Eyad Reaves M.D. - 03/30/2018 11:00 AM CDT CHIEF COMPLAINT/REASON FOR VISIT H/O CAD s/p stenting 2017 HISTORY OF PRESENT ILLNESS Mr. Sheldon presents today for a multisystem evaluation and evaluation of multiple concerns. 1. H/O CAD s/p stenting 2017. Patient completed his cardiovascular assessment yesterday. He was encouraged to pursue more aerobic exercise maintain good weight discontinue Plavix. 2. Hyperlipidemia. He has excellent control on current statin dosage and no appreciable side effects. 3. History of hyperglycemia. Immediately following the stenting, he essentially eliminated sugar from his diet and probably dropped about 10 lb. It is reassuring to s that his fasting plasma glucose istaking a similar trend towards reduction. 4. History of elevated blood pressure. Again he is doing very well with exercise for the most part but when he is in [place] probably misses 2 or 3 days per week. Talked about strategies to improve this. We also talked about taking some home blood pressure readings periodically perhaps once or twicea month just to help monitor any trends. 5. History of heavy sun exposure. Despite a really heavy son dose over his lifetime, the skin is actually remained fairly elastic. He is not having discrete lesions of concern. The following portions of the patient's history were reviewed and updated as appropriate: allergies,current medications, family history, medical history, social history, surgical history and problem list. REVIEW OF SYSTEMS All systems were reviewed and negative outside of that mentioned in the HPI. OBJECTIVE There were no vitals taken for this visit. PHYSICAL EXAMINATION Constitutional: Oriented to person, place, and time. Appears well-developed. Cooperative; in no distress. HENT: Right Ear: Tympanic membrane, external ear and ear canal normal. Left Ear: Tympanic membrane, external ear and ear canal normal. Nose: Nose normal. Mouth/Throat: Oropharynx is clear and moist. No oral lesions. No oropharyngeal exudate. Eyes: Conjunctivae, EOM and lids are normal. Pupils are equal, round, and reactive to light. No scleral icterus. Neck: Normal range of motion. Neck supple. No JVD present. Carotid bruit is not present. No thyromegaly present. Cardiovascular: Normal rate, regular rhythm, S1 normal, S2 normal, normal heart sounds and intact distal pulses. She exhibits no edema. Exam reveals no gallop and no friction rub. No murmur heard. Pulmonary/Chest: Effort normal and breath sounds normal. No respiratory distress. No wheezes, no rales. Abdominal: Soft. Bowel sounds are normal. No distension and no mass. There is no hepatosplenomegaly.There is no tenderness. There is no rebound and no guarding. Musculoskeletal: Normal range of motion. No synovitis. Lymphadenopathy: Head (right side): No submental, no submandibular and no occipital adenopathy present. Head (left side): No submental, no submandibular and no occipital adenopathy present. No cervicaladenopathy. No axillary adenopathy. Right: No inguinal and no supraclavicular adenopathy present. Left: No inguinal and no supraclavicular adenopathy present. Neurological: Normal strength and normal reflexes. No sensory deficit. Normal muscle tone. Coordination normal. Skin: Skin is warm. No rash noted. No erythema. Psychiatric: Normal mood and affect. Speech is normal and behavior is normal. Judgment and thought content normal. Cognition and memory are normal. ASSESSMENT/PLAN 1. History of coronary artery disease, status post stenting, 2017. Recommendations are nicely outlined in Dr. Humphries's note from yesterday. We reviewed this in detail 2. Hyperlipidemia, on statin treatment. Will continue same. We emphasize importance of exercise nutrition as complements to his overall strategy 3. Hyperglycemia. He has shown significant improvement largely due to his continued emphasis on aerobic exercise and weight loss from change in diet 4. History of elevated blood pressure. We did talk about having him do home blood pressure readings a few times per month and keeping a written record so we can look for any trends. We discussed again the lifestyle modification 2nd be helpful for long-term maintenance 5. History of heavy sun exposure. Discussed ABCDs of skin cancer. Current examination shows no worrisome lesions. 6. Routine health maintenance. He is current on colon screening. PSA is pending. We talked about thepros and cons of PSA testing and he did wish to proceed. Lipids and sugar as mentioned above. We talked about Health and Wellness promotion. We talked about nutrition exercise again discussed possibility of starting a more formal mind body program which could be helpful with blood pressure, cognitive function etc. Again recommended heart math or relaxing rhythms as biofeedback assisted program 7 point be very helpful 7. Ongoing care. Patient has experienced challenges access see my calendar due to practice changes. We talked about various strategies including [facility] versus getting care locally. The [facility] would be more convenient and still allow him to be connected to the [facility]. He is going to pursue getting his routine care there. Evidence course still be happy to see him in the future if need arose. Addendum. PSA result was within normal limits. Patient notified. PATIENT EDUCATION Ready to learn, no apparent learning barriers were identified; learning preferences include listening. Explained diagnosis and treatment plan; patient expressed understanding of the content. documented in this encounter Plan of Treatment Upcoming Encounters Date Type Specialty Care Team Description 07/22/2022 Office Visit Urology Alexy Yuan M .D. [address] [place], [place] [phone] (Meir cronin) 07/22/2022 Appointment Radiation Oncology Sun Hope M.D., Ph.D. [address] [place], [place] [phone] (Meir cronin) documented as of this encounter Procedures Procedure Name Priority Date/Time Associated Diagnosis Comme nts PROSTATE-SPECIFIC Routine 03/30/2018 12:13 PM Benign Prostatic Results for this AG (PSA) CDT Hyperplasia procedure are i n DIAGNOSTIC, S Hypertrophy With the result s Obstruction section. documented in this encounter Results PSA (Prostate-Specific Antigen), Diagnostic (03/30/2018 12:13 PM CDT) P athologist Signature Prostate-Speci 3.4 <=6.5 03/30/2018 [facility] fic Ag ng/mL 2:32 PM CDT LABORATORIES - [facility] Comment: ----ADDITIONAL INFORMATION---- The testing method is an electrochemilum inescence assay manufactured by [employer] and performed on the Modular or [employer] system . Values obtained with different assay met hods or kits may be different and cannot be used inte rchangeably. Test results cannot be interpreted as ab solute evidence for the presence or absence of malignant disease. Specimen Anatomical Collection Method Collection Time Receive d Time (Source) Location / / Volume Laterality Blood (Blood, 03/30/2018 12:13 03/30/2018 Venous) PM CDT 12:43 PM CDT Eyad Reaves M.D. LAB BLOOD ADD-ON Performing Organization Address City/State/ZIP Code Phon e Number [facility] - [address] documented in this encounter Visit Diagnoses Diagnosis Benign Prostatic Hyperplasia Without Obs truction - Primary Benign Prostatic Hyperplasia Hypertrophy With Obstruction documented in this encounter Care Teams Car Distributor Relationship Specialty Start Date End Date Ginger Fernández M.D. PCP - General 02/25/17 12/15/18 documented as of this encounter
--- OUTSIDE RECORDS SUMMARY | 2022-07-07 12:02 | XMS_ITS | Encounter Summary ---
:1945 Author Organization [facility] Address [address] [place] [address] Care Team Providers Name Role Phone Radha Nunez M.D. Primary Care Provider [phone] Reason for Referral Outpatient (Routine) - Closed Specialty Diagnoses / Procedures Referred By Contact Refer red To Contact Cardiovascular Disease Lulú Vines [facility] D.OJulian [address] [place] [address] Referral ID Status Reason Start Date Expiration Date Visits Requ ested Visits Authorized [id number] Closed 06/05/2019 06/04/2020 1 1 Reason for Visit Reason Comments Coronary Artery Disease New to MD. Dr Hosea parks rral Outpatient (Routine) - Closed Specialty Diagnoses / Referred By Contact Referred To Contact Procedures Cardiovascular Diseases / Diagnoses Coronary Artery Disease Without Angina Pectoris Santhosh Spivey [facility] Cardiovascular Disease Radha palmer M.D. [address] [place] [address] Referral ID Status Reason Start Date Expiration Date Visits Requ ested Visits Authorized [id number] Closed 04/17/2019 04/16/2020 1 1 Encounter Details Date Type Department Care Team Description 06/05/2019 Comprehensive Visit Department of Oneil Vines Essential Primary (Primary Dx); Cardiovascular Lulú K, Coronary Myra ry Disease Without Angina Pectoris Diseases in [place]. [place] [address] [place], [place] [phone] Social History Tobacco Use Types Packs/Day [...] More than 4 times per year 04/15/2021 rastafari services? Do you belong to any clubs [...] completed or the highest Doreen, MEd, SENIOR BUSINESS CONSULTANT, EMELYN) degree you have received? Sex Assigned at Date Recorded Male 03/27/2018 8:35 PM CDT documented as of this encounter Last Filed Vital Signs Vital Sign Reading Time Taken Comments Blood Pressure 150/80 06/05/2019 10:10 AM CDT Pulse 66 06/05/2019 10:10 AM CDT Temperature 36.9 ??C (98.4 ??F) 06/05/2019 8:57 AM CDT Respiratory Rate 16 06/05/2019 8:57 AM CDT Oxygen Saturation 100% 06/05/2019 8:57 AM CDT Inhaled Oxygen Concentration - - Weight 85.3 kg (188 lb 0.8 oz) 06/05/2019 8:57 AM CDT Height 179.5 cm (5' 10.67) 06/05/2019 8:57 AM CDT Body Mass Index 26.47 06/05/2019 8:57 AM CDT documented in this encounter Patient Instructions Patient InstructionsLulú Vines D.O. - 06/05/2019 9:30 AM CDT See cardiology in one year or sooner if changes in symptoms documented in this encounter Consult Notes Lulú Vines D.O. - 06/05/2019 9:30 AM CDT CHIEF COMPLAINT/REASON FOR VISIT Chief Complaint Patient presents with ??? Coronary Artery Disease New to MD. Dr Jc referral HISTORY OF PRESENT ILLNESS Charles is a pleasant 73 year white male that is here today for her cardiology visit. Patient had been seen and followed in [place] he saw Dr. Humphries July of 2018. At that time no anginal symptoms. Since that time no chest pain or chest pressure there has been no syncope no near syncopal symptoms no orthopnea nor PND. He is very active he walks either on the treadmill or outside does some weight lifting at least an hour every day 7 days a week. He also golfs when he golfs he typically uses a cartwhen he is in [place] and he does walk with his golf while in [place]. Overall he is very active he does participate in an exercise program while in [place] and he would like to continue to do this. Patient does have a history of underlying coronary disease in June of 2017 he was experiencing chest pain or anginal symptoms he had a stress test that was abnormal he ended up having an angiogram on July 14, 2019. His findings were noted below. He did have intervention with angioplasty and stent to the RCA. He had also had some collateral circulation. GENERAL: Denies excessive fatigue, recent weight changes, excessive thirst or heat or cold intolerance. DERMATOLOGIC: Denies rash or hives. HEENT: Denies headaches. Denies hearing changes, ringing in ears, ear pain, visual disturbances, epistaxis, or difficulty swallowing. CARDIOVASCULAR: Note HPI RESP IRATORY: Note HPI GASTROINTESTINAL: Denies frequent heartburn or indigestion, belching, abdominal pain, anorexia, black or tarry stools, frequent nausea or vomiting, diarrhea or constipation. No history of bleeding ulcers. MUSCULOSKELETAL: Denies neck pain, joint stiffness or pain. NEUROLOGIC: Denies h eadache, blurry or double vision, syncope, dizziness and no history of neurological deficits or frequent falls. Remaining review of systems negative. PAST MEDICAL/SURGICAL HISTORY 1. CAD parentheses angiogram July 14, 2017 left main 30%, proximal LAD 30% mid 60%, diagonal 1--30%, proximal RCA 30%, obtuse marginal 160%, mid RCA 90% distal 20% he had angioplasty and stent to the 90% vessel, right PDA was 50%, right posterior lateral segment normal size he is receiving collaterals from the left AV groove branch. 2. HTN 3. HLP 4. DJD CURRENT MEDICATIONS Current Outpatient Medications on File Prior to Visit Medication Sig Dispense Refill ??? aspirin 81 [...] 25 tablet 11 No current facility-administered medications on file prior to visit. ALLERGIES Allergies Allergen Reactions ??? Pollen Extracts Other (see comments) Sneezing SOCIAL HISTORY Lives in [place] and k[place] in [place], no smoke no chew FAMILY HISTORY None VITAL SIGNS BP 140/72 (BP Location: Left arm, Patient Position: Sitting, Cuff Size: Regular) Pulse 68 Temp 36.9 ??C (Temporal) Resp 16 Ht 179.5 cm Wt 85.3 kg SpO2 100% BMI 26.47 kg/m?? PHYSICAL EXAM VITAL SIGNS: Reviewed in electronic medical record. SKIN: Appears warm and dry HEENT: Head normocephalic. Pupils round and react equally. NECK: Supple without obvious palpable lymphadenopathy. No JVD. Carotid upstroke is normal and no bruits. HEART: RRR no g/r/m LUNGS: Clear to auscultation bilaterally, no crackles or rhonchi. No obvious respiratory distress noted at this time. ABDOMEN: Soft, and nontender with bowel sounds present. No guarding or rebound tenderness. MUSCULOSKELETAL: Moves upper and lower extremities without difficulty. EXTREMITIES: No peripheral edema, clubbing, or cyanosis. Strength seems grossly normal. Pedal pulses2+ and symmetric. No calf tenderness. NEUROLOGIC: Moves all four extremities. Gait is steady. Mood and affect seem appropriate to the setting. Patient orientation appropriate to time, date and place. Follows commands appropriately. No focal deficits. ANCILLARY/LAB STUDIES Angiogram 07/14/2017 reviewed Lab reviewed previous ECHO 07/12/2017 EF normal 61%, no valvular heart disease IMPRESSION 1. CAD three-vessel disease patient's last angiogram was July 14, 2017 with intervention to the RCA he has completed his Plavix he is on aspirin 81 mg daily he is a high on high-intensity dose statin he does have p.r.n. use on his nitroglycerin that he has not used. He is overall doing well he functions at a high level of exercise capacity without anginal symptoms. We did discuss if he were to develop anginal symptoms he definitely needed to be seen and evaluated at that time. Patient is interested in continuing his regular exercise while in [place] at that [facility] and I would strongly endorse this. 2. Hyperlipidemia his lipids look good he is on high-intensity dose statin we did discuss again dietand he does well with his exercise 3. Hypertension recheck today go for blood pressures less than 140 mm systolic. He will check this on a weekly basis at home. 4. Left hip pain he recently had an injection PLAN Follow-up in Cardiology in 1 year if he has change in his symptoms would like an EKG prior to visit if he has any change in his symptoms he needs to be seen by Cardiology sooner either here or in [place]. Continue current medications. documented in this encounter Plan of Treatment Upcoming Encounters Date Type Specialty Care Team Description 07/22/2022 Office Visit Urology Alexy Yuan M .D. [address] [place], [place] [phone] (Wo rk) 07/22/2022 Appointment Radiation Oncology Sun Hope M.D., Ph.D. [address] [place], [place] [phone] (Wo rk) Scheduled Referrals Name Type Priority Associated Order Schedule Diagnoses Cardiovascular Disease Outpatient Referral Routine Expected: office visit (clinic) 2019 (Approximate), Expires: 06/05/2022 documented as of this encounter Visit Diagnoses Diagnosis Hypertension Essential Primary - Primary Coronary Artery Disease Without Angina P ectoris documented in this encounter Care Teams Coning Machine Operator Relationship Specialty Start Date End Date Radha Nunez M.D. PCP - General Family Medicine 12/16/18 10/23/[address] [phone] documented as of this encounter
--- OUTSIDE RECORDS SUMMARY | 2022-07-07 12:02 | XMS_ITS | Encounter Summary ---
:1945 Author Organization [facility] Address [address] [place] [address] Care Team Providers Name Role Phone Ginger Fernández M.D. Primary Care Provider Encounter Details Date Type Department Care Team Description 11/10/2018 Clinical Communication Department of Alissa Samaniego, MedicineBenjamín M.D. [facility], [address] [address] [place], [place] [phone] (Work) [phone] Social History Tobacco Use Types Packs/Day Years Used Date Smoking Tobacco: Never Smokeless Tobacco: Never Alcohol Habits Answer Date Recorded How often do you have a drink containing 4 or more times a w [place] 02/05/2022 alcohol? How many drinks containing alcohol [...] or slept in a assisted (including now)? Sex Assigned at Date Recorded Male 03/27/2018 8:35 PM CDT documented as of this encounter Plan of Treatment Upcoming Encounters Date Type Specialty Care Team Description 07/22/2022 Office Visit Urology Alexy Yuan M .D. [address] [place], [place] [phone] (Wo rk) 07/22/2022 Appointment Radiation Oncology Sun Hope M.D., Ph.D. [address] [place], [place] [phone] (Wo rk) documented as of this encounter Visit Diagnoses Not on filedocumented in this encounter Care Teams Bridge Crane Operator Relationship Specialty Start Date End Date Ginger Fernández M.D. PCP - General 02/25/17 12/15/18 documented as of this encounter
--- OUTSIDE RECORDS SUMMARY | 2022-07-07 12:02 | XMS_ITS | Encounter Summary ---
:[address] [facility] Address [address] [place] [address] Care Team Providers Name Role Phone Radha Nunez M.D. Primary Care Provider [phone] Reason for Referral Outpatient (Routine) - Closed Specialty Diagnoses / Referred By Contact Referred To Contact Procedures Physical Medicine and Guanaco Sosa D.O. [address] [place] [address] Referral ID Status Reason Start Date Expiration Date Visits Requ ested Visits Authorized [id number] Closed 06/09/2019 06/08/2020 1 1 Scheduling Instructions 30 minute appointment Reason for Visit Reason Onset Date Comments left hip injection 06/09/2019 Encounter Details Date Type Department Care Team Description 06/09/2019 Clinical Department of Guanaco Sosa left hip inje ction Communication Physical Medicine and [facility] in [address] [place] [address] Dr Gibson [facility] [place], [place] [phone] Social History Tobacco Use Types Packs/Day Years Used Date Smoking Tobacco: Never Smokeless Tobacco: Never Alcohol Habits Answer Date Recorded How often do you have a drink containing 4 or more times a w [place] 02/05/2022 alcohol? How many drinks containing alcohol [...] or relatives? How often do you attend jewish or More than 4 times per year 04/15/2021 muslim services? Do you belong to any clubs or Yes 02/05/2022 organizations such as jewish groups, unions, fraternal or athletic groups, or [...] have completed or the highest Doreen, MEd, BLUE PRINTS TRIMMER, EMELYN) degree you have received? Sex Assigned at Date Recorded Male 03/27/2018 8:35 PM CDT documented as of this encounter Miscellaneous Notes Telephone Encounter - Yanni Mensah - 06/12/2019 8:40 AM CDT Message left for patient to call back to schedule with Dr Sosa. Addendum Note - Guanaco Sosa D.O. - 06/09/2019 4:22 PM CDT Addended by: GUANACO SOSA on: 06/09/2019 04:22 PM Modules accepted: Orders Telephone Encounter - Guanaco Sosa D.O. - 06/09/2019 4:20 PM CDT Referral placed for 30 minute clinic consultation. Please call the patient to schedule this appointment. Guanaco Sosa DO, CAQSM Structural Welder Ice Guard Inspector Physical Medicine & Rehabilitation Telephone Encounter - Nelly Monique L.P.N. - 06/09/2019 4:04 PM CDT Would like to see you for a follow up to discuss options for additional treatment Telephone Encounter - Guanaco Sosa D.O. - 06/09/2019 3:38 PM CDT Injection referral from Dr. Harrell. Can see him back in clinic or I can see him back if would like since Dr. Harrell will be departing [place] in the coming weeks for further evaluation to discuss additionaltreatment options moving forward. Please call the patient to inform of the above and ask how he would like to proceed. Guanaco Sosa DO, CAQSM Structural Welder Ice Guard Inspector Physical Medicine & Rehabilitation Telephone Encounter - Nelly Monique L.P.N. - 06/09/2019 1:16 PM CDT Please enter order for follow up to discuss other options for medical treatment. Telephone Encounter - Anupama Kern - 06/09/2019 1:02 PM CDT Patient had an injection in his left hip on May 29, he feels that the injection did not help. Please advise [phone] documented in this encounter Plan of Treatment Upcoming Encounters Date Type Specialty Care Team Description 07/22/2022 Office Visit Urology Alexy Yuan M .D. [address] [place], [place] [phone] (Wo rk) 07/22/2022 Appointment Radiation Oncology Sun Hope M.D., Ph.D. [address] [place], [place] [phone] (Wo rk) Scheduled Referrals Name Type Priority Associated Order Schedule Diagnoses Physical Medicine and Outpatient Referral Routine Expected: Rehabilitation office 2018 visit (clinic) (Approximate) , Expires: 06/09/2022 documented as of this encounter Visit Diagnoses Not on filedocumented in this encounter Care Teams Autopsy Assistant Relationship Specialty Start Date End Date Radha Nunez M.D. PCP - General Family Medicine 12/16/18 10/23/20 [address] [place] [phone] documented as of this encounter
--- OUTSIDE RECORDS SUMMARY | 2022-07-07 12:02 | XMS_ITS | Encounter Summary ---
:1945 Author Organization [facility] Address [address] [place] [address] Care Team Providers Name Role Phone Radha Nunez M.D. Primary Care Provider [phone] Encounter Details Date Type Department Care Team Description 05/29/2019 Procedure visit Department of Physical Ian, Kathy [facility] Medicine and D.O. Osteoarthritis Hip Rehabilitation in [address] [place] [address] [place] [phone] Social History Tobacco Use Types Packs/Day Years Used Date Smoking Tobacco: Never Smokeless Tobacco: Never Alcohol Habits Answer Date Recorded How often do you have a drink containing 4 or more times a w [place] 02/05/2022 alcohol? How many drinks containing alcohol [...] have completed or the highest Doreen, MEd, SPECIALIST PHYSICIANS, EMELYN) degree you have received? Sex Assigned at Date Recorded Male 03/27/2018 8:35 PM CDT documented as of this encounter Patient Instructions Patient InstructionsGuanaco Sosa D.O. - 05/29/2019 1:00 PM CDT Follow-Up Plan: __ Sport/school/work note __ Referrals/labs/imaging/procedures/DME (orders): Left hip intra-articular corticosteroid injectionwith ultrasound guidance completed in clinic today __ Follow-up phone call/portal message: 2 weeks with results of your pain log to review to determineappropriate further medical care moving forward __ Follow-up clinic appointment: As needed at this time for further evaluation/medical care __ Scheduling desk Please feel free to call ([phone]) or message me on the [facility] Patient Portal if you have any questions. Post Procedure Home Care Instructions Activity: -Avoid strenuous activity for 24-48 hours -Return to work today if you feel comfortable doing so -Resume normal day to day activities and physical therapy/home exercises if applicable tomorrow -May shower, however no swimming, tub baths, or hot tubs for 24-48 hours following the procedure Pain: -May experience injection site soreness for 1-2 days -Use ice 20 minutes every hour as needed for the first 24-48 hours -Do not apply heat to the area -May use Acetaminophen up to 3-4 grams/day, Ibuprofen 3200 mg/day, or other pain medications as directed Common Side Effects: -Increased blood sugars in diabetic patients, flushed face, feeling of warmth, etc Contact Office: -Fevers, signs of infection (fevers, chills, redness, warmth, swelling, or draining), etc. -If you need immediate attention, recommend hospital emergency room evaluation or dialing 911 documented in this encounter Procedure Notes Guanaco Sosa D.O. - 05/29/2019 1:00 PM CDTAssociated Order(s): PMR Peripheral injection/USGI (Procedure Only): L hip joint Post-Procedure Diagnose(s): Primary Osteoarthritis Hip Left Hip site - L hip joint : [...] guidance Ultrasound The use of direct ultrasound visualization of the needle was required (rather than a non-guided injection) to ensure accurate injection delivery and to maximize clinical benefit beyond that obtained with a non-guided injection. Additionally, there can be diagnostic specificity when evaluating effectiveness of the injection, and for safety purposes to minimize risk of bleeding or injury to surroundingstructures. Images saved: yes Pre-procedure image guidance used to localize target and identify at risk structures, and plan approach and site was marked using indelible marker. Probe: convex low/mid-frequency Needle approach: lateral to medial Ultrasound visualization: in-plane Procedural Medication The following medications were administered at the target site(s) Local anesthetic: 2 mL ropivacaine (PF) 2 mg/mL (0.2 %) Corticosteroid: 80 mg methylPREDNISolone acetate 80 mg/mL CONSENT Consent obtained: written PRE-PROCEDURE DETAILS Procedure purpose: therapeutic Skin preparation: chlorhexidine SEDATION / ANESTHESIA Anesthesia method: local infiltration Local infiltrate type: lidocaine POST-PROCEDURE DETAILS Procedure completed successfully: yes Complications: no apparent complications documented in this encounter Plan of Treatment Upcoming Encounters Date Type Specialty Care Team Description 07/22/2022 Office Visit Urology Alexy Yuan M .D. [address] [place] [address] [phone] (Wo rk) 07/22/2022 Appointment Radiation Oncology Sun Hope M.D., Ph.D. [address] [place] [address] [phone] (Wo rk) documented as of this encounter Procedures Procedure Name Priority Date/Time Associated Diagnosis Comme nts LA ARTHCS ASP/INJ Routine 05/29/2019 1:00 PM Primary Osteoarth ritis Results for this MJR JT W US CDT Hip Left procedure are i n the results section. documented in this encounter Results LA ARTHCS ASP/INJ MJR JT W US (05/29/2019 [...] Visit Diagnoses Diagnosis Primary Osteoarthritis Hip Left documented in this encounter Administered Medications Inactive Administered Medications - up to 3 most recent administrations Medication Order MAR Action Action Date Dose Rate Site methylPREDNISolone acetate Given 05/29/2019 12:56 PM CDT 80 mg injection 80 mg (DEPO-Medrol) 80 mg, intra-articular, One-Time Injection, Starting on Wed05/29/19 at 1256, For 1 dose ropivacaine (PF) 2 mg/mL (0.2 %) injection 2 Given 12:56 PM CDT 2 mL mL (NAROPIN) 2 mL, One-Time Injection, Starting on Wed05/29/19 at 1256, For 1 dose documented in this encounter Care Teams Wellfield Technician Relationship Specialty Start Date End Date Radha Nunez M.D. PCP - General Family Medicine 12/16/18 10/23/[address] [phone] documented as of this encounter
--- OUTSIDE RECORDS SUMMARY | 2022-07-07 12:02 | XMS_ITS | Encounter Summary ---
:1945 Author Organization [facility] Address [address] [place] [address] Care Team Providers Name Role Phone Ginger Fernández M.D. Primary Care Provider Reason for Visit Outpatient (Routine) - Closed Specialty Diagnoses / Referred By Contact Referred To Contact Procedures Cardiovascular Diseases / Diagnoses [facility] M.B.B[facility]ian Referral ID Status Reason Start Date Expiration Date Visits Requ ested Visits Authorized [id number] Closed 03/29/2018 03/29/2019 1 1 Encounter Details Date Type Department Care Team Description 03/30/2018 Clinical Support Department of Luis Pelayo M.BJulianB. S. Hyperlipidemia Cardiovascular Medicine Darrel Mckeon, YANA, LD in [facility] potato bucker [address] [place] [phone] Social History Tobacco Use Types Packs/Day Years Used Date Smoking Tobacco: Never Smokeless Tobacco: Never Alcohol Habits Answer Date Recorded How often do you have a drink containing 4 or more times a w [place] 02/05/2022 alcohol? How many drinks containing [...] More than 4 times per year 04/15/2021 synagogue services? Do you belong to any clubs [...] or slept in a retirement (including now)? Sex Assigned at Date Recorded Male 03/27/2018 8:35 PM CDT documented as of this encounter Progress Notes Darrel Mckeon, YANA, LD - 03/30/2018 9:00 AM CDT CHIEF COMPLAINT/REASON FOR VISIT Hyperlipidemia, CAD Met with patient Food/Nutrition Related History Drinks coffee, juice, 1% milk, diet soda, some water (not his favorite). One beer or glass of white wine daily. Breakfast is poached egg, granola or Bulgarian muffin with peanut butter/jelly. Snacks 3 times daily on light yogurt, granola, fruit and/or nuts. Lunch is ham or tuna sandwich. Few vegetables but will eat salads. Eats out 2-3 times per week in evening - chicken, fish, pasta and burgers are main choices - avoids fried food, added fats. Weight History Lost 10-15 lbs. After cutting out sweets last winter after having heart surgery NUTRITION DIAGNOSIS Food and nutrition-related knowledge deficit (NB-1.1) related to additional potential dietary changes for heart health as evidenced by patient questions/discussion. Nutrition Prescription/Recommendation Low saturated fat, high fiber guidelines with limit of 2000 milligrams sodium daily INTERVENTION Education: Discussed eating out, reading labels, snack choices, added sugar in foods MONITORING AND EVALUATION: Nutrition parameter to monitor: diet Desired Outcome: Heart healthy diet Patient Goal(s): 1. Decrease juice intake 2. Choose granola low in added sugar and fat 3. Increase intake of beans/legumes, fruit and vegetables 4.Consider tracking intake to verify sodium, saturated fat intake FOLLOW UP PLAN: Contact me if questions Time spent with patient (minutes): 45 documented in this encounter Plan of Treatment Upcoming Encounters Date Type Specialty Care Team Description 07/22/2022 Office Visit Urology Alexy Yuan M .D. [address] [place], [place] [phone] (Wo rk) 07/22/2022 Appointment Radiation Oncology Sun Hope M.D., Ph.D. [address] [place], [place] [phone] (Wo rk) documented as of this encounter Visit Diagnoses Diagnosis Hyperlipidemia documented in this encounter Care Teams Car Top Bolter Relationship Specialty Start Date End Date Ginger Fernández M.D. PCP - General 02/25/17 12/15/18 documented as of this encounter
--- OUTSIDE RECORDS SUMMARY | 2022-07-07 12:03 | XMS_ITS | Encounter Summary ---
:1945 Author Organization [facility] Address [address] [place] [address] Care Team Providers Name Role Phone Ginger Fernández M.D. Primary Care Provider Encounter Details Date Type Department Care Team Description 07/12/2017 Hospital Encounter HX NO MAPPING Social History Tobacco Use Types Packs/Day Years Used Date Smoking Tobacco: Never Alcohol Habits Answer Date Recorded How often do you have a drink containing 4 or more times a w [place] 02/05/2022 alcohol? How many drinks containing alcohol [...] or slept in a fpc (including now)? Sex Assigned at Date Recorded Male 03/27/2018 8:35 PM CDT documented as of this encounter Medications at Time of Discharge Medication Sig Dispensed Refills Start Date End Date aspirin 81 mg chewable Chew 1 tablet daily. 0 03/2013 tablet CHOLECALCIFEROL, VITAMIN Take 1 capsule by 0 03/201603/14/2021 D3, ORAL mouth daily. Dose unknown famciclovir (FAMVIR) 125 Take 1 tablet by 0 04/0806/04/2020 mg tablet mouth as directed. One tablet twice daily for 5 days as needed for rash documented as of this encounter Plan of Treatment Upcoming Encounters Date Type Specialty Care Team Description 07/22/2022 Office Visit Urology Alexy Yuan M .D. [address] [place], [place] [phone] (Meir cronin) 07/22/2022 Appointment Radiation Oncology Sun Hope M.D., Ph.D. [address] [place], [place] [phone] (Meir cronin) documented as of this encounter Visit Diagnoses Not on filedocumented in this encounter Care Teams Poultry Hanger Relationship Specialty Start Date End Date Ginger Fernández M.D. PCP - General 02/25/17 12/15/18 documented as of this encounter
--- OUTSIDE RECORDS SUMMARY | 2022-07-07 12:03 | XMS_ITS | Encounter Summary ---
:1945 Author Organization [facility] Address [address] [place] [address] Care Team Providers Name Role Phone Ginger Fernández M.D. Primary Care Provider Reason for Referral Outpatient (Routine) - Closed Specialty Diagnoses / Procedures Referred By Contact Refer red To Contact Diagnoses Cardiac Vascular Disease Screening Blue Humphries M.D., [facility] Procedures ECG 12 Lead HI EKG 12 LEAD TRACE ONLY HI EKG I&R ONLY Ph.D. [address] [place] [address] Referral ID Status Reason Start Date Expiration Date Visits Requ ested Visits Authorized [id number] Closed 02/17/2018 02/17/2019 1 1 Encounter Details Date Type Department Care Team Description 02/16/2018 Orders Only Department of Blue Humphries Cardiac [facility] Cardiovascular Medicine Michael Alanis, Ph.D. Disease Screening in [facility]ak [address] [facility] (Primary Dx) [address] [place] [phone] Social History Tobacco Use Types Packs/Day Years Used Date Smoking Tobacco: Never Alcohol Habits Answer Date Recorded How often do you have a drink containing 4 or more times a w [place] 02/05/2022 alcohol? How many drinks containing alcohol [...] or slept in a fci (including now)? Sex Assigned at Date Recorded Male 03/27/2018 8:35 PM CDT documented as of this encounter Plan of Treatment Upcoming Encounters Date Type Specialty Care Team Description 07/22/2022 Office Visit Urology Alexy Yuan M .D. [address] [place], [place] [phone] (Meir cronin) 07/22/2022 Appointment Radiation Oncology Sun Hope M.D., Ph.D. [address] [place], [place] [phone] (Meir cronin) documented as of this encounter Results ECG 12 Lead (03/28/2018 7:34 AM CDT) P athologist Signature Ventricular Rate 60 BPM MUSE ECG/Min HI Interval 176 ms MUSE QRSD Interval 84 ms MUSE QT Interval 412 ms MUSE QTC Interval 412 ms MUSE P [place] 17 degrees MUSE R [place] 32 degrees MUSE T Wave [place] 33 degrees MUSE Specimen Anatomical Collection Method Collection Time Receive d Time (Source) Location / / Volume Laterality 03/28/2018 7:34 AM 8 3:13 CDT PM CDT Impressions MUSE - 03/28/2018 3:13 PM CDT Normal sinus rhythm Normal ECG When compared with ECG of 09-JUL-2017 13 :18, No significant change was found Narrative This result has an attachment that is no t available. Blue Humphries M.D., Ph.D. ECG ORDERABLES Performing Organization Address City/State/ZIP Code Phon e Number MUSE MUSE NA (ABNORMAL) Glucose, Fasting (03/28/2018 7:24 AM CDT) athologist Signature Glucose, P 104 (H) 70 - 100 03/28/2018 [facility] mg/dL 8:09 AM CDT [facility] Last Intake 12 hr 03/28/2018 [facility] 7:32 AM CDT [facility] Specimen Anatomical Collection Method Collection Time Receive d Time (Source) Location / / Volume Laterality Blood (Blood, 03/28/2018 7:24 AM 03/28/20 18 7:32 Venous) CDT AM CDT Blue Humphries M.D., Ph.D. LAB BLOOD NON ADD-ON Performing Organization Address City/[facility]/ZIP Code Phon e Number [facility] - [address] [place] [id number] [facility] (ABNORMAL) Lipid Panel (03/28/2018 7:24 AM CDT) P athologist Signature Cholesterol, 102 mg/dL 03/28/2018 [facility] Total 8:16 AM CDT [facility] Comment: ----REFERENCE VALUE---- Desirable: < 200 Borderline high: 200 - 239 High: > or = 240 Triglycerides 70 mg/dL 03/28/2018 8:16 AM CDT [facility] Comment: ----REFERENCE VALUE---- Normal: <150 Borderline high: 150-199 High: 200-499 Very high: > or =500 Cholesterol, HDL, S 39 (L) >=40 mg/dL 03/28/2018 8:16 AM [facility] Calculated LDL 49 mg/dL 03/28/2018 8:16 AM [facility] Annabelle STEVENSON CDT [facility]ATOR[facility] - [facility] Comment: ----REFERENCE VALUE---- Desirable: <100 Above Desirable: 100-129 Borderline high: 130-159 High: 160-189 Very high: > or =190 Cholesterol, Non-HDL, 63 mg/dL 03/28/2018 8:16 AM CDT [facility] Calculated - [facility] Comment: ----REFERENCE VALUE---- Desirable: <130 [...] City/State/ZIP Code Phon e Number [facility] - [address] documented in this encounter Visit Diagnoses Diagnosis Cardiac Vascular Disease Screening - Kathryn vidal documented in this encounter Care Teams Research Soil Scientist Relationship Specialty Start Date End Date Ginger Fernández M.D. PCP - General 02/25/17 12/15/18 documented as of this encounter
--- OUTSIDE RECORDS SUMMARY | 2022-07-07 12:03 | XMS_ITS | Encounter Summary ---
:1945 Author Organization [facility] Address [address] [place] [address] Care Team Providers Name Role Phone Ginger Fernández M.D. Primary Care Provider Encounter Details Date Type Department Care Team Description 07/14/2017 Hospital Encounter HX RST EAST TOW 4A Yehuda Shukla M.D. Social History Tobacco Use Types Packs/Day Years Used Date Smoking Tobacco: Never Alcohol Habits Answer Date Recorded How often do you have a drink containing 4 or more times a w [place] 02/05/2022 alcohol? How many drinks containing alcohol [...] or slept in a detention (including now)? Sex Assigned at Date Recorded Male 03/27/2018 8:35 PM CDT documented as of this encounter Last Filed Vital Signs Vital Sign Reading Time Taken Comments Blood Pressure 119/66 07/14/2017 6:15 PM CDT NIBP - Va lue from [employer]. Pulse 72 07/14/2017 7:00 PM CDT Value fro m [employer]. Temperature - - Respiratory Rate 21 07/14/2017 7:15 PM CDT Value fr om [employer]. Oxygen Saturation - - Inhaled Oxygen Concentration [...] Urology Alexy Yuan M .D. [address] [place], [place] [phone] (Wo rk) 07/22/2022 Appointment Radiation Oncology Sun Hope M.D., Ph.D. [address] [place], [place] [phone] (Wo rk) documented as of this encounter Visit Diagnoses Not on filedocumented in this encounter Care Teams Wireless Technician Relationship Specialty Start Date End Date Ginger Fernández M.D. PCP - General 02/25/17 12/15/18 documented as of this encounter
--- OUTSIDE RECORDS SUMMARY | 2022-07-07 12:03 | XMS_ITS | Encounter Summary ---
:1945 Author Organization [facility] Address [address] [place] [address] Care Team Providers Name Role Phone Unavailable Primary Care Provider Unavailable Encounter Details Date Type Department Care Team Description 05/24/2008 Hospital Encounter HX NO MAPPING Social History Tobacco Use Types Packs/Day Years Used Date Smoking Tobacco: Never Assessed Alcohol Habits Answer Date Recorded How often do you have a drink containing 4 or more times a w [place] 02/05/2022 alcohol? How many drinks containing alcohol [...] Urology Alexy Yuan M .D. [address] [place], [place] [phone] (Wo mehrdad) 07/22/2022 Appointment Radiation Oncology Sun Hope M.D., Ph.D. [address] [place], [place] [phone] (Meir cronin) documented as of this encounter Visit Diagnoses Not on filedocumented in this encounter
--- OUTSIDE RECORDS SUMMARY | 2022-07-07 12:03 | XMS_ITS | Encounter Summary ---
:1945 Author Organization [facility] Address [address] [place] [address] Care Team Providers Name Role Phone Unavailable Primary Care Provider Unavailable Encounter Details Date Type Department Care Team Description 02/05/2016 Hospital Encounter HX [facility] Kelly Fernández M.D. [address] [place] [address] 021 (Wo rk) Social History Tobacco Use Types Packs/Day Years Used Date Smoking Tobacco: Never Assessed Alcohol Habits Answer Date Recorded How often do you have a drink containing 4 or more times a w [place] 02/05/2022 alcohol? How many drinks containing alcohol [...] [place] [facility] ([facility] Sex Assigned at Date Recorded Male 03/27/2018 8:35 PM CDT documented as of this encounter Last Filed Vital Signs Vital Sign Reading Time Taken Comments Blood Pressure 130/80 02/05/2016 10:00 AM CDT Pulse 80 02/05/2016 10:00 AM CDT Temperature - - Respiratory Rate 16 02/05/2016 10:00 AM CDT Oxygen Saturation - - Inhaled Oxygen Concentration - - Weight 89 kg (196 lb 3.4 oz) 02/05/2016 10:00 AM CDT Height 180.5 cm (5' 11.06) 02/05/2016 10:00 AM CDT Body Mass Index 27.32 02/05/2016 10:00 AM CDT documented in this encounter Medications at Time of Discharge Medication Sig Dispensed Refills Start Date End Date aspirin 81 mg chewable Chew 1 tablet daily. 0 03/2013 tablet documented as of this encounter H&P Notes Ginger Fernández M.D. - 02/05/2016 9:39 AM CDT [id number] CHIEF COMPLAINT/REASON FOR VISIT Preop. HISTORY OF PRESENT ILLNESS A 70-year-old male presents to clinic for preop and to establish care. He is planning to have cataract extraction with Dr. Delgado at the [facility] 02/12/2016. They may be doing the 2nd eye some time after that but it is not clear. Preop clearance is advised by his pulmonology physician. He is otherwise doing quite well. 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 His last well male checkup was June of 2015. He has multiple health issues but they are all stable. He does believe he is up-to-date in terms of his immunizations but the records are not available. He is taking his lovastatin as prescribed. He has been using some Famvir on an episodic basis a few times per year for cold sores. He has never tried any other products for his cold sores. EMR reviewed. MEDICATIONS 1. Lovastatin 40 mg each day. 2. History of Famvir 125 mg tablets 2 times per day for 5 days as needed for cold sores. 3. Aspirin 81 mg each day. ALLERGIES No known drug allergies. SYSTEMS REVIEW CONSTITUTIONAL: No fevers, chills, night sweats, or weight change. EYES: Last ophthalmic exam 02/03/2016. See the HPI and the Past Medical/Surgical History. ENT: No hearing loss or oral problems. Last dental exam November of 2015. CARDIOVASCULAR: No chest pain, palpitations, edema or true claudication. See the Past Medical/Surgical History. RESPIRATORY: No cough, wheeze, hemoptysis or shortness of breath. GASTROINTESTINAL: No abdominal pain, hematemesis, melena, dysphagia or change in daily bowel regimen. GENITOURINARY: No nocturia, hematuria, incontinence or dysuria. MUSCULOSKELETAL: Episodic joint pain. No swelling, some stiffness and obvious degenerative deformities. INTEGUMENTARY: No rashes or pruritus. NEUROLOGIC: No seizures or syncopal events. PSYCHIATRIC: No history of anxiety or depression.No problems with sleep. ENDOCRINE: No history of thyroid problems. Has been told he has an elevated glucose. HEMATOLOGIC/LYMPHATIC: No history of anemia or bleeding. ALLERGIC/IMMUNOLOGIC: Please see the chart. PAST MEDICAL/SURGICAL HISTORY PAST SURGICAL HISTORY: 1. Left knee arthroscope secondary to a meniscal injury 05/13/2006. 2. Tonsillectomy as a child. OTHER HEALTH PROBLEMS: 1. Atypical chest pain with negative sestamibi 07/02/2014 at [facility]. 2. Recurrent cold sores. 3. Degenerative joint disease. 4. Hyperglycemia. 5. Hyperlipidemia. 6. Peripheral neuropathy, etiology not clear. OTHER INJURIES: 1. Has fractured both of his arms, one by description was an open fracture but did not require any surgery. 2. Hospitalization for face paresthesia at [facility] in the distant past, with no residual. PREVENTIVE SERVICES: Tobacco: None. Colon screen: 10/24/2007, [facility]. Recheck planned for 10 years. Depression: No. Asthma: No. Lipids: 07/05/2015. Tetanus: 04/13/2006. Pneumovax: No record. Prevnar: No record. Influenza: 06/13/2015. SOCIAL HISTORY Alcohol: Daily to every other day. Caffeine: A couple cups of coffee each day, diet soda every 3 days. No tea. FAMILY HISTORY Mother at age 89, spent the last 3 years in the prison secondary to a fracture from whichshe never recovered. Father at age 69 of an NM and had a CABG x4 vessels. Brother and a sister alive and well. Three children who are alive and well. VITAL SIGNS HEIGHT: 180.5 cm. WEIGHT: 89 kg. TEMPERATURE: 36.9. RESPIRATORY RATE: 16. PULSE: 80. O2 SATURATION ROOM AIR: 97%. SYSTOLIC: 130. DIASTOLIC: 80. PHYSICAL EXAMINATION SKIN: Warm and dry with solar changes in a sunwear distribution. GENERAL: Neatly dressed. Well groomed. HEAD: No evidence of trauma, tenderness or masses. EYES: PERRL. Full EOM. Funduscopic exam consistent with cataracts. See Dr. Delgado's note. ENT: Ears: Tympanic membranes are peralta. Subjectively intact hearing. Nose: Mucosal membranes pink and moist. Septum is midline. Oral: No exudates. Teeth in good repair. No pharyngeal erythema. Neck: Supple. Trachea midline. LYMPH NODES: No cervical or femoral adenopathy. THYROID: No thyroid masses, tenderness or enlargement. HEART: Regular rate and rhythm. No clicks, rubs or murmurs. LUNGS: Clear to auscultation. No palpable chest wall masses. ABDOMEN: Soft, nontender, bowel sounds present, no organomegaly. EXTREMITIES: No ankle edema. PERIPHERAL VESSELS: Positive radial, ulnar, femoral, posterior tib, dorsalis pulses. MENTAL: Oriented x3. NEUROLOGIC: Reflexes 2+ triceps, biceps, knees and ankles. DIAGNOSTICS ELECTROCARDIOGRAM: Sinus rhythm. RADIOLOGY: Chest x-ray: No acute findings. LABORATORY: CBC: WBC 7.2, hemoglobin 16.0, hematocrit 46.0, platelets 199. Differential: Segs 4.51, lymphs 1.88, monos 0.66, eos 0.16, basos 0.02. Chemistry: Sodium 144, potassium 4.1, chloride 107, bicarb 27, random glucose 90, BUN 16, creatinine 0.8, calcium 9.3. IMPRESSION/REPORT/PLAN 1. Preop. 2. Cataracts. 3. Hyperlipidemia. 4. Hyperglycemia, currently stable. 5. Degenerative joint disease. 6. Peripheral neuropathy, etiology not clear. PLAN: Patient is stable to go to the operating room with Dr. Delgado for definitive treatment. Patient is an ASA class 2, Farah's class 1, Detsky's class 1. Signs and symptoms leading to emergent evaluation are reviewed. Will send patient a card in regard to the stable laboratory evaluation. Spent 60 minutes in preop planning. Ginger Fernández M.D./santy Electronically Signed By: GINGER FERNÁNDEZ MD On: 02/06/2016 08:22 AM Modified by and Electronically Signed by: GINGER FERNÁNDEZ MD On: 02/06/2016 08:22 AM Source: [facility] MHSDOLBEYNONRADSYS Document Id: [id number] documented in this encounter Nursing Notes Lise Hernandez L.P.N. - 02/06/2016 11:37 AM CDT Preop Preop faxed to [facility]. Electronically Signed By: LISE HERNANDEZ LPN On: 02/06/2016 11:37 AM Source: [facility] Selectable Media Document Id: [id number] Lise Hernandez L.P.N. - 02/06/2016 11:37 AM CDT Labs 02-05-16 Result card sent. Electronically Signed By: LISE HERNANDEZ LPN On: 02/06/2016 11:38 AM Source: [facility] Select[employer] Document Id: [id number] documented in this encounter Miscellaneous Notes Telephone Encounter - Conversion, Historical Provider Ser - 03/04/2017 12:55 PM CDT *Phone Message Document Contains Addenda Addendum by TEODORA WILCOX LPN on March 04, 2017 16:23:13 CDT Spoke with: ( _x ) Patient ( _ ) Parent ( _ ) Spouse ( _ ) Child ( ) Other: _ Call back telephone number: _ Reason for Call: -Returning his call Chief Complaint: Informed Charles that Mony advised that he be seen. Patient/Caller response to Education/Information given: ( x ) Verbalizes understanding of instructions ( _ ) Provide intervention per provider instruction ( _ ) Reinforce information already given ( _ ) Reinforce Plan of Care ( _ ) Provide preprinted information by mail (if applicable) Source/Reference used (if applicable): Mony Cespedes CNP OK to leave message on voice mail? N/A OK to send message via patient portal? N/A Patient told to expect return call: ( _ ) today ( _ ) tomorrow ( _ ) next work day Callers preferred language for Healthcare discussion: Albanian Was an foreign language interpreter used for this call? No Other ( --_ ) Addendum by MONY CESPEDES APRN, CNP on March 04, 2017 15:48:30 CDT From: MONY CESPEDES APRN, CNP To: [facility] Nurse; Sent: 03/04/2017 15:48:30 CDT Subject: RE: *Phone Message I think he should come in and be seen again. Addendum by TEODORA WILCOX LPN on March 04, 2017 15:27:42 CDT From: TEODORA WILCOX LPN ([facility] Nurse) To: MONY CESPEDES APRN, CNP; Sent: 03/04/2017 15:27:42 CDT Subject: FW: *Phone Message Addendum by TEODORA WILCOX LPN on March 04, 2017 15:27:34 CDT Spoke with: ( _x ) Patient ( _ ) Parent ( _ ) Spouse ( _ ) Child ( ) Other: _ Call back telephone number: [phone] Reason for Call: -Finger swelling and pain. Chief Complaint: Spoke with Charles and he stated he completed his antibiotic this morning. Is better but still painful and swollen. Stated he is willing to come in and see some one if you think that is the better choice.If you call in antibiotic he uses [facility] in [place]. Patient/Caller response to Education/Information given: ( x ) Verbalizes understanding of instructions ( _ ) Provide intervention per provider instruction ( _ ) Reinforce information already given ( _ ) Reinforce Plan of Care ( _ ) Provide preprinted information by mail (if applicable) Source/Reference used (if applicable): _ OK to leave message on voice mail? Yes OK to send message via patient portal? No Patient told to expect return call: ( x ) today ( _ ) tomorrow ( _ ) next work day Callers preferred language for Healthcare discussion: Albanian Was an foreign language interpreter used for this call? No Other ( --_ ) Addendum by MONY CESPEDES APRN, CNP on March 04, 2017 15:16:50 CDT From: MONY CESPEDES APRN, CNP To: [facility] Nurse; Sent: 03/04/2017 15:16:50 CDT Subject: RE: *Phone Message See how he is doing, I will refill antibiotic once more but if it is not improving he needs an appointment. Addendum by ALBERTO HERNANDEZ on March 04, 2017 15:10:19 CDT From: ALBERTO HERNANDEZ ( [facility] Nurse) To: [facility] Nurse; Sent: 03/04/2017 15:10:19 CDT Subject: FW: *Phone Message patient returning call , please call back [phone] Addendum by TEODORA WILCOX LPN on March 04, 2017 14:56:27 CDT From: TEODORA WILCOX LPN ( [facility] Nurse) To: MONY CESPEDES APRN, CNP; Sent: 03/04/2017 14:56:27 CDT Subject: FW: *Phone Message Addendum by TEODORA WILCOX LPN on March 04, 2017 13:19:08 CDT Attempted to contact patient. Message left to return my call. From: GELACIO RASHID ([facility] Nurse) To: VIPUL Cespedes Nurse; Sent: 03/04/2017 12:55:53 CDT Subject: *Phone Message Caller is: ( x ) Patient ( ) Mother ( ) Father ( ) Spouse ( ) Daughter ( ) Son ( ) Pharmacy ( ) Other: Physician: Patient MRN #: Reason for Call: pt called regarding his infected finger that is not healing and he ran out of his meds that he was taking for it. please call back at [phone] Message: Advice/Action: Source used: ( ) Verbalizes understanding of instructions ( ) Instructed to call back if symptoms worsen or do not resolve ( ) Refused to see provider ( ) Appointment Scheduled ( ) OK to leave message on voice mail ( ) Patient told to expect return call: ( ) today ( ) tomorrow ( ) next work day ( ) Patient's email ( ) Patient told physician out of office, will call upon return call on ( ) ( ) Patient told physician out of office, routed to other physician ( ) Other ( ) Call back telephone number ( ) Call back cell phone number ( ) Source: [facility] [employer] Document Id: [id number] Henrik - Abi Darling - 06/15/2016 8:43 AM CDT Quality Measures Quality Measures Entered On: 02/03/2017 8:43 CDT Performed On: 06/15/2016 8:43 CDT by ABI DARLING LPN Labs Outside Lab Cholesterol : 149 mg/dL Outside Lab HDL : 47 mg/dL Outside Lab LDL : 82 mg/dL Outside Lab Triglycerides : 98 mg/dL ABI DARLING LPN - 02/03/2017 8:43 CDT Source: [facility] [employer] Document Id: [id number] CDT!6 Henrik - Ginger Fernández M.D. - 02/05/2016 6:13 PM CDT Ambulatory Discharge Medication List [address] [id number] Visit Information Name: DEIDRE JOSEPH Jr.. [facility] Number: [id number] Visit Date: 02/05/2016 18:13:46 Attending Provider: GINGER FERNÁNDEZ MD Primary Care Provider: GINGER FERNÁNDEZ MD OPALHUE CruzDEIDRE Jordan has been given the following list of medications: Your Medications It is important to take your medications as directed. Use a pill box or chart to help remind you to take your medications. Please let your doctor or nurse know if you have problems taking your medications. Medication/Strength How to Take Indications/Special Instructions/Comments/Notes for Patient Medication Changes/Routing aspirin (aspirin) 81 mg, Oral, once a day lovastatin (lovastatin) 40 mg, Oral, once a day Stop Taking the Following Medications: Medication list as of 02-05-16 18:13 Attention: If you have any medications at home that are not on this list, DO NOT take them until youcontact your provider for clarification. Give a copy of your medication list to your primary care provider. Update your medication list any time medications or doses are changed and carry your medication list at all times in case of emergency. Electronically Signed By: GINGER FERNÁNDEZ MD Signed On:05-FEB-2016 18:13:39 Additional Information: Source: [facility] POWERCHART Document Id: [id number] Miscellaneous - Ginger Fernández M.D. - 02/05/2016 6:13 PM CDT Ambulatory Patient Summary [address] [place], [place] [id number] Visit Information Name: OPAL MckeonJulianDEIDRE Jordan [facility] Number: [id number] Current Date: 02/05/2016 18:13:46 Physicians Attending Provider: GINGER FERNÁNDEZ MD Primary Care Provider: GINGER FERNÁNDEZ MD OPAL Christensen, DEIDRE Harvey has been given the following list of follow-up instructions, medication list, and patient education materials: Follow-up Instructions Your Medications Here is a list of your medications. It is important to take your medications as directed. Use a pillbox or chart to help remind you to take your medications. Please let your doctor or nurse know if you have problems taking your medications. Medication/Strength How to Take Indications/Special Instructions/Comments/Notes for Patient Medication Changes/Routing aspirin (aspirin) 81 mg, Oral, once a day lovastatin (lovastatin) 40 mg, Oral, once a day Stop Taking the Following Medications: Medication list as of 02-05-16 18:13 Attention: If you have any medications at home that are not on this list, DO NOT take them until youcontact your provider for clarification. Give a copy of your medication list to your primary care provider. Update your medication list any time medications or doses are changed and carry your medication list at all times in case of emergency. Electronically Signed By: GINGER FERNÁNDEZ MD Signed On:05-FEB-2016 18:13:39 Your Allergies & Intolerances Substance Reaction Symptoms Category Comments No Known Allergies Drug Your Problem List Problem Status Onset Comments DJD (OA) NOS Active Hyperglycemia Active Hyperlipidemia NOS Active Cold Sore Herpes Labialis Active Neuropathy Peripheral NOS Active Your Upcoming Appointments Date Time Location Provider No Appointments found Attention: Contact your local Clinic if further appointment detail needed. Consider Using Patient Online Services Patient Online Services is a secure online and Mobile application that lets you: ?? View lab and test results ?? View portions of your medical record including clinical notes, immunizations and discharge summaries ?? Request an appointment or medication refill ?? Review your appointment schedule ?? Send secure messages to your care team Its easy to create an account if you dont have one. Go to [email or web address] and click on Create Your Account. Then, follow the directions to complete the online form. Youll be asked for your [facility] number which you can find at the top of this document. Your Goals/Additional instructions: Source: [facility] POWERCHART Document Id: [id number] Miscellaneous - Ginger Fernández M.D. - 02/05/2016 11:36 AM CDT Obstructive Sleep Apnea Obstructive Sleep Apnea Entered On: 02/05/2016 11:36 CDT Performed On: 02/05/2016 11:36 CDT by GINGER FERNÁNDEZ MD LANA Screening Known Obstructive Sleep Apnea : No - NOT diagnosed with LANA LANA Score : No qualifying data available. LANA Results : No qualifying data available. GINGER FERNÁNDEZ MD - 02/05/2016 11:36 CDT LANA Assessment Do you have high blood pressure or have you been told to take medication for high blood pressure? : No Frequency of Snoring : Rarely (1-2 times per year) Frequency of Gasping, Choking, Snorting : Never Total Number of Historical Features : 0 Neck Circumference (cm) : 42/43 Total Sleep Apnea Clinical Score Calc : 5 GINGER FERNÁNDEZ MD - 02/05/2016 11:36 CDT Source: [facility] Document Id: [id number] CDT!12 Miscellaneous - Lise Hernandez LJulianPJulianN. - 02/05/2016 10:00 AM CDT Adult Chief Technical Officer Intake/History Adult Chief Technical Officer Intake/History Entered On: 02/05/2016 10:03 CDT Performed On: 02/05/2016 10:00 CDT by LISE HERNANDEZ LPN Intake Chief Complaint : preop Temperature Core : 36.9 DegC(Converted to: 98.4 DegF) Peripheral Pulse Rate : 80 /min Respiratory Rate : 16 /min Systolic Blood Pressure : 130 mmHg Diastolic Blood Pressure : 80 mmHg NIBP Mean : 97 mmHg BP Location : Left upper extremity Blood Pressure Cuff Size : Regular SpO2 : 97 % Oxygen Therapy : Room air Height : 180.5 cm(Converted to: 5 ft 11 inch(es), 71 inch(es)) Actual Weight : 89 kg(Converted to: 196 lb 3 oz) Dosing Weight Clinic : 89 kg Clinic BSA : 2.11 Body Mass Index : 27.32 kg/m2 LISE HERNANDEZ LPN - 02/05/2016 10:00 CDT General Info Languages : Albanian Is Patient Female and 13-50 no hysterectomy : No LISE HERNANDEZ LPN - 02/05/2016 10:00 CDT Subjective Pain Symptoms : No LISE HERNANDEZ LPN - 02/05/2016 10:00 CDT Dependent Habits Exposure to Tobacco Smoke : Other: never Smoking Status : Never smoker Tobacco 2A : No Tobacco Use/Currently Using : No Tobacco Use/Last 30 Days : No Tobacco Use/Last 12 months : No LISE HERNANDEZ LPN - 02/05/2016 10:00 CDT Source: [facility] Document Id: [id number] CDT!30 Miscellaneous - Lise Hernandez LJulianP.NJulian - 02/05/2016 10:00 AM CDT Health Assessment Health Assessment Entered On: 02/05/2016 10:04 CDT Performed On: 02/05/2016 10:00 CDT by LISE HERNANDEZ LPN Health Assessment Complete Health Assessment Complete or Modified : Annual Health Assessment Annual Health Assessment Completed : Yes LISE HERNANDEZ LPN - 02/05/2016 10:00 CDT Nutrition Nutrition Risk Factors by History Adult : None LISE HERNANDEZ LPN - 02/05/2016 10:00 CDT Functional Current Daily Living Assistance : None LISE HERNANDEZ LPN - 02/05/2016 10:00 CDT Dependent Habits Smoking Status : Never smoker Tobacco 2A : No Tobacco Use/Currently Using : No Tobacco Use/Last 30 Days : No Tobacco Use/Last 12 months : No Alcohol Use : Yes LISE HERNANDEZ LPN - 02/05/2016 10:00 CDT Psychosocial Domestic Abuse Concerns : None Behavioral Health Screen/Safety Assmt : No Gnosticism Preference : Choose Not to Give LISE HERNANDEZ LPN - 02/05/2016 10:00 CDT Advance Directive Advanced Directives : Yes Advance Directive Type : Other: Advance Directive Location : Other: MARYLISE NGUYEN YAMILETH PARKER - 02/05/2016 10:00 CDT Educ Needs Learning Style Preference Adult Grid Patient : Demonstration, Printed materials, Verbal explanation, Video/Educational TV Family : Demonstration, Printed materials, Verbal explanation, Video/Educational TV MARYLISE NGUYEN YAMILETH PARKER - 02/05/2016 10:00 CDT Source: [facility] POWERCHART Document Id: [id number] CDT!27 documented in this encounter Plan of Treatment Upcoming Encounters Date Type Specialty Care Team Description 07/22/2022 Office Visit Urology Alexy Yuan M .D. [address] [place] [address] [phone] (Meir rk) 07/22/2022 Appointment Radiation Oncology Sun Hope M.D., Ph.D. [address] [place] [address] [phone] (Wo rk) documented as of this encounter Procedures Procedure Name Priority Date/Time Associated Diagnosis Comme nts DX CHEST AP OR PA Routine 02/05/2016 11:26 AM Res ults for this AND LATERAL 2 VIEWS CDT procedur e are in the results section. AUTOMATED Routine 02/05/2016 10:54 AM Results for this DIFFERENTIAL, B CDT procedure ar e in the results section. CBC WITH Routine 02/05/2016 10:54 AM Results for this DIFFERENTIAL, B CDT procedure ar e in the results section. BASIC METABOLIC Routine 02/05/2016 10:54 AM Resul ts for this PANEL, S/P CDT procedure are i n the results section. documented in this encounter Results DX Chest Anterior Posterior or Posterior Anterior and Lateral 2 Views (02/05/2016 11:26 AM CDT) Anatomical Region Laterality Modality Chest N/A Radiographic Imaging Specimen (Source) Anatomical Collection Method Collection Time Re ceived Time Location / / Volume Laterality 02/05/2016 11:26 AM CDT Addenda Addendum by Provider, Michael Saldana 02/05/2016 11:26 AM CDT RAD^^^OW XR Chest 2 Views 02/05/2016 11:26:57 Impressions 02/05/2016 12:37 PM CDT ??No acute findings. Narrative 02/05/2016 12:37 PM CDT EXAM: ??XR Chest 2 Views AGE: ??70 years old. GENDER: ??Male. INDICATION: ??preop, hyperlidemia, hyper glycemia+++ COMPARISON: ??None. FINDINGS: ??No focal areas of consolidat ion. No pneumothorax. Moderately prominent degenerative change s mid, lower thoracic spine. Chest otherwise negative. Procedure Note Guanaco Soriano M.D. / Provider, Rebekah bettencourt M.D. - 01/15/2017 EXAM: XR Chest 2 Views AGE: [age] years old. GENDER: Male. INDICATION: preop, hyperlidemia, hypergl ycemia+++ COMPARISON: None. FINDINGS: No focal areas of consolidatio n. No pneumothorax. Moderately prominent degenerative change s mid, lower thoracic spine. Chest otherwise negative. IMPRESSION: No acute findings. Lena ChuaTJulian(R)(CT), R.T.(R) IMG DIAGNOSTIC IMAG ING PROCEDURES Automated Differential (02/05/2016 10:54 AM CDT) P athologist Signature Absolute 4.51 1.70 - POWERCHART Neutrophils 7.00 109L Lymphocytes 1.88 0.90 - POWERCHART 2.90 X109L Monocytes 0.66 0.30 - POWERCHART 0.90 X109L Eosinophils 0.16 0.05 - POWERCHART 0.50 X109L Absolute 0.02 0.00 - POWERCHART Basophil 0.30 X109L Specimen Anatomical Collection Method Collection Time Receive d Time (Source) Location / / Volume Laterality Blood 02/05/2016 10:54 02/05/2016 AM CDT 10:54 AM CDT Ginger Fernández M.D. LAB BLOOD ADD-ON Performing Organization Address City/State/ZIP Code Phon e Number POWERCHART CBC with Differential (02/05/2016 10:54 AM CDT) P athologist Signature Leukocytes 7.2 3.5 - 10.5 POWERCHART X109L Erythrocytes 5.08 4.32 - 5.72 POWERCHART [id number] Hemoglobin 16.0 13.5 - 17.5 POWERCHART GDL Hematocrit 46.0 38.8 - 50.0 POWERCHART MCV 90.6 81.0 - 95.0 POWERCHART FL Platelet Count 199 150 - 450 POWERCHART X109L HX RDW 13.3 11.8 - 15.6 POWERCHART Specimen (Source) Anatomical Collection Method Collection Time Re ceived Time Location / / Volume Laterality Blood 02/05/2016 10:54 AM CDT Ginger Fernández M.D. LAB BLOOD ADD-ON Performing Organization Address City/State/ZIP Code Phon e Number POWERCHART BMP (Basic Metabolic Panel) (02/05/2016 10:54 AM CDT) P athologist Signature Sodium, S 144 135 - 145 POWERCHART MMOLL Potassium, S 4.1 3.6 - 5.2 POWERCHART MMOLL Chloride, S 107 98 - 107 POWERCHART MMOLL CO2 Total 27 22 - 29 POWERCHART MMOLL BUN (Blood Urea 16 8 - 24 POWERCHART Nitrogen), S MGDL Creatinine 0.8 0.8 - 1.3 POWERCHART MGDL Calcium, Total, 9.3 8.8 - 10.3 POWERCHART S MGDL Anion Gap 10 7 - 15 POWERCHART MMOLL HXeGFR (MDRD) >60 >=60 POWERCHART [id number] eGFR >60 >=60 POWERCHART Black/ [id number] Bangladeshi Glucose 90 70 - 139 POWERCHART MGDL Specimen (Source) Anatomical Collection Method Collection Time Re ceived Time Location / / Volume Laterality Blood 02/05/2016 10:54 AM CDT Ginger Fernández M.D. LAB BLOOD ADD-ON Performing Organization Address City/State/ZIP Code Phon e Number POWERCHART documented in this encounter Visit Diagnoses Not on filedocumented in this encounter
--- OUTSIDE RECORDS SUMMARY | 2022-07-07 12:03 | XMS_ITS | Encounter Summary ---
:1945 Author Organization [facility] Address [address] [place] [address] Care Team Providers Name Role Phone Ginger Fernández M.D. Primary Care Provider Encounter Details Date Type Department Care Team Description 02/21/2018 Orders Only Division of General Eyad Reaves Coron ary Artery Disease Internal Medicine in M.DJulian (Primary Dx) [place], [place] [address] [facility] [address] [place] [phone] Social History Tobacco Use Types Packs/Day Years Used Date Smoking Tobacco: Never Alcohol Habits Answer Date Recorded How often do you have a drink containing 4 or more times a w [place] 02/05/2022 alcohol? How many drinks containing alcohol [...] More than 4 times per year 04/15/2021 yazdanism services? Do you belong to any clubs [...] or slept in a snf (including now)? Sex Assigned at Date Recorded Male 03/27/2018 8:35 PM CDT documented as of this encounter Plan of Treatment Upcoming Encounters Date Type Specialty Care Team Description 07/22/2022 Office Visit Urology Alexy Yuan M .D. [address] [place], [place] [phone] (Wo rk) 07/22/2022 Appointment Radiation Oncology Sun Hope M.D., Ph.D. [address] [place], [place] [phone] (Wo rk) documented as of this encounter Visit Diagnoses Diagnosis Coronary Artery Disease (Unspecified) - Primary documented in this encounter Care Teams Treasury Associate Relationship Specialty Start Date End Date Ginger Fernández M.D. PCP - General 02/25/17 12/15/18 documented as of this encounter
--- OUTSIDE RECORDS SUMMARY | 2022-07-07 12:03 | XMS_ITS | Encounter Summary ---
:1945 Author Organization [facility] Address [address] [place] [address] Care Team Providers Name Role Phone Unavailable Primary Care Provider Unavailable Encounter Details Date Type Department Care Team Description 07/02/2014 Hospital Encounter HX [facility] Eyad Reaves, IQRA. M.DJulian [address] [place] [phone] (Wo rk) Social History Tobacco Use Types Packs/Day Years Used Date Smoking Tobacco: Never Assessed Alcohol Habits Answer Date Recorded How often do you have a drink containing 4 or more times a w [place] 02/05/2022 alcohol? How many drinks containing alcohol [...] slept in a group home (including now)? Sex Assigned at Date Recorded Male 03/27/2018 8:35 PM CDT documented as of this encounter Medications at Time of Discharge Medication Sig Dispensed Refills Start Date End Date aspirin 81 mg chewable Chew 1 tablet daily. 0 03/2013 tablet documented as of this encounter Plan of Treatment Upcoming Encounters Date Type Specialty Care Team Description 07/22/2022 Office Visit Urology Alexy Yuan M .D. [address] [place], [place] [phone] (Meir cronin) 07/22/2022 Appointment Radiation Oncology Sun Hope M.D., Ph.D. [address] [place], [place] [phone] (Meir cronin) documented as of this encounter Visit Diagnoses Not on filedocumented in this encounter
--- OUTSIDE RECORDS SUMMARY | 2022-07-07 12:03 | XMS_ITS | Encounter Summary ---
:1945 Author Organization [facility] Address [address] [place] [address] Care Team Providers Name Role Phone Unavailable Primary Care Provider Unavailable Encounter Details Date Type Department Care Team Description 02/22/2017 Hospital Encounter HX [facility] Mony Cespedes, FIELD COORDINATOR, C.N.P. [address] [place], [place] [phone] (Wo rk) Social History Tobacco Use Types Packs/Day Years Used Date Smoking Tobacco: Never Alcohol Habits Answer Date Recorded How often do you have a drink containing 4 or more times a w [place] 02/05/2022 alcohol? How many drinks containing alcohol [...] or slept in a jail (including now)? Sex Assigned at Date Recorded Male 03/27/2018 8:35 PM CDT documented as of this encounter Last Filed Vital Signs Vital Sign Reading Time Taken Comments Blood Pressure 148/80 02/22/2017 9:59 AM CDT Pulse 68 02/22/2017 9:52 AM CDT Temperature - - Respiratory Rate 16 02/22/2017 9:52 AM CDT Oxygen Saturation - - Inhaled Oxygen Concentration - - Weight 89.5 kg (197 lb 6.8 oz) 02/22/2017 9:52 AM CDT Height - - Body Mass Index 27.95 03/19/2016 8:26 AM CDT documented in this encounter Medications at Time of Discharge Medication Sig Dispensed Refills Start Date End Date aspirin 81 mg chewable Chew 1 tablet daily. 0 03/2013 tablet CHOLECALCIFEROL, VITAMIN Take 1 capsule by 0 03/201603/14/2021 D3, ORAL mouth daily. Dose unknown documented as of this encounter Progress Notes Mony Cespedes, DAMIAN, C.N.P. - 02/22/2017 11:50 AM CDT Clinic Full Note CHIEF COMPLAINT/REASON FOR VISIT Right 5th finger swollen and painful. Started a couple of weeks ago. HISTORY OF PRESENT ILLNESS Dane states he developed a sore area at the base of his right 5th finger nail sometime before . It became swollen he was able to extract. Went drainage from it several days in a row. Itis not seem to improve beyond that point. He still has tenderness with mild erythema and swelling. He has been soaking it in warm water. His blood pressure is elevated on 2 checks today 1st blood pressure 164/80, 2nd blood pressure 148/80. He states he has noted that his blood pressure has been elevated on several occasions when he has checked it at various places such as [employer]. Usually in the 140s over 80s. He has annual exam in [place] at [facility] every March. He is scheduled on April 03 this year. MEDICATIONS aspirin, 81 mg, PO, Daily lovastatin, 40 mg, PO, Daily ALLERGIES NKA PAST MEDICAL HISTORY Chronic Cold Sore Herpes Labialis DJD (OA) NOS Hyperglycemia Hyperlipidemia NOS Neuropathy Peripheral NOS Historical No historical problems PROCEDURES/SURGICAL HISTORY Nuclear medicine (07/02/2014), Colonoscopy (10/24/2007), ARTHROSCOPY KNEE MENISCAL TRNSPLJ MED/LAT (05/13/2006), Tonsillectomy. SOCIAL HISTORY Date Time: 02/22/2017 09:52 Tobacco: Smoking Status: Never smoker Exposure: Other: never Alcohol: Use: No Results Found Recreational Drugs: Use: No Results Found Type: No Results Found FAMILY HISTORY Father ( at 69 year(s)):Positive: Myocardial infarction HEALTH MAINTENANCE Up-to-date. SYSTEMS REVIEW Positive for that mentioned in the History of Present Illness and Past Medical History. All other systems were reviewed and were negative. VITAL SIGNS T: 36.7 ??C (Core) HR: 68 RR: 16 BP: 148 / 80 WT: 89.55 kg PHYSICAL EXAMINATION GENERAL: Well-developed, well-nourished, in no acute distress. SKIN: Warm and dry. HEENT: TMs clear. Throat clear. NECK: Supple. No lymphadenopathy or thyromegaly. HEART: Regular rate and rhythm. S1, S2. No murmur. LUNGS: Clear to auscultation. No wheezes or rales. ABDOMEN: Soft, nontender. No hepatosplenomegaly. EXTREMITIES: Right 5th finger mild erythema and edema at the base of the fingernail. No active drainage. Culture obtained. LAB RESULTS Aerobic culture right 5th finger pending. IMPRESSION/REPORT/PLAN Hypertension (HTN) Essential Primary NOS Worsening, we discussed options including starting antihypertensive medication today or he could wait until his annual physical on April 03 at [facility] in [place]. He will continue to monitor blood pressure and discuss it with his provider in [place]. Ordered: OV Est Pt Level 4 - 47556 - 25 min Paronychia Finger R Worsening, aerobic culture is pending. Starting cephalexin 500 mg, 1 capsule 3 times daily, for 10 days. Continue warm Dreft soaks. Recheck if symptoms do not resolve. Ordered: Culture Aerobic OV Est Pt Level 4 - 78332 - 25 min Orders: cephalexin, 500 mg = 1 cap(s), PO, 3xDay, x 10 day(s), # 30 cap(s), 0 Refill(s), Acute, Pharmacy: [facility] Electronically Signed By: MONY CESPEDES APRN, CNP On: 02/22/2017 12:57 PM Source: [facility] POWERCHART Document Id: [id number] documented in this encounter Nursing Notes Mony Cespedes APRN C.N.P. - 02/22/2017 10:17 AM CDT Ambulatory Patient Education The following Patient Education Materials have been given to the patient: Patient Education Materials: Ambulatory HYPERTENSION, To Be Confirmed Ambulatory High Blood Pressure -- To Be Confirmed [No Tx] Your blood pressure was higher today than normal. Sometimes anxiety or pain can cause a temporary rise in blood pressure that later returns to normal. If your blood pressure is high on one measurement,this does not mean that you have hypertension (a chronic illness). However, you must have your bloodpressure measured again within the next few days to find out if its still high. A normal blood pressure is 120/80 or less. The first (top) number is the systolic pressure. The second (bottom) number is the diastolic pressure. Hypertension exists when either the top number is 140 or higher, OR the bottom number is 90 or higher on repeated measurements. Blood pressure in the range of 120-140 (systolic) or 80-89 (diastolic) is considered pre-hypertension. This means your are at risk for getting hypertension. You should have regular blood pressure checks to be sure your blood pressure is not rising. Home Care: Measure your blood pressure on 3 different days and write down the results. This can be done at yourdoctor's office or this facility. Some pharmacies and grocery stores offer automated blood pressure machines for your use. Follow Up: If your blood pressure is high (over 120/80) on 2 out of 3 days, you will need to follow up with your doctor for further evaluation and treatment. DO NOT PUT THIS OFF! Untreated high blood pressure increases the risk for heart attack, also known as acute myocardial infarction, or AMI, and stroke. It is a treatable condition. Get Prompt Medical Attention if any of the following occur: ?? Chest pain or shortness of breath ?? Severe headache ?? Throbbing or rushing sound in the ears ?? Nosebleed ?? Sudden severe abdominal pain ?? Extreme drowsiness, confusion or fainting ?? Dizziness or vertigo (dizziness with spinning sensation) ?? Weakness of an arm or leg or one side of the face ?? Difficulty with speech or vision ?? [phone] Formerly [facility], [address] [place] [address]. All rights reserved. This information is not intended as a substitute for professional medical care. Always follow your healthcare professional's instructions. This document has images extracted. Please consider using [email or web address] for all your patient education needs. Source: [facility] POWERCHART Document Id: [id number] documented in this encounter Miscellaneous Notes Miscellaneous - Mony Cespedes APRN, C.N.P. - 02/22/2017 10:17 AM CDT Ambulatory Patient Summary [address] [id number] Visit Information Name: DANE JOSEPH Jr. [facility] Number: [id number] Current Date: 02/22/2017 10:17:36 Physicians Attending Provider: MONY CESPEDES APRN [facility] Primary Care Provider: ABHI ARELLANO MD DANE JOSEPH Jr. has been given the following list of follow-up instructions, medication list,and patient education materials: Follow-up Instructions Your Medications [...] (aspirin) 81 mg, Oral, once a day cephalexin (cephalexin 500 mg oral capsule) 1 cap, Oral, three times a day x 10 day(s) New Routed [address] [address] lovastatin (lovastatin) 40 mg, Oral, once a day Stop Taking the Following Medications: Medication list as of 02-22-17 10:17 Attention: If you have any medications at home that are not on this list, DO NOT take them until youcontact your provider for clarification. Give a copy of your medication list to your primary care provider. Update your medication list any time medications or doses are changed and carry your medication list at all times in case of emergency. Electronically Signed By: MONY CESPEDES APRN, CNP Signed On:22-FEB-2017 10:17:22 Your Allergies & Intolerances Substance Reaction Symptoms Category Comments No Known Allergies Drug Your Problem List Problem Status Onset Comments DJD (OA) NOS Active Hyperglycemia Active Hyperlipidemia NOS Active Cold Sore Herpes Labialis Active Neuropathy Peripheral NOS Active Your Upcoming Appointments Date Time Location Provider No Appointments found Attention: Contact your local Clinic if further appointment detail needed. High Blood Pressure -- To Be Confirmed [No Tx] Your blood pressure was higher today than normal. Sometimes anxiety or pain can cause a temporary rise in blood pressure that later returns to normal. If your blood pressure is high on one measurement,this does not mean that you have hypertension (a chronic illness). However, you must have your bloodpressure measured again within the next few days to find out if its still high. A normal blood pressure is 120/80 or less. The first (top) number is the systolic pressure. The second (bottom) number is the diastolic pressure. Hypertension exists when either the top number is 140 or higher, OR the bottom number is 90 or higher on repeated measurements. Blood pressure in the range of 120-140 (systolic) or 80-89 (diastolic) is considered pre-hypertension. This means your are at risk for getting hypertension. You should have regular blood pressure checks to be sure your blood pressure is not rising. Home Care: Measure your blood pressure on 3 different days and write down the results. This can be done at yourdoctor's office or this facility. Some pharmacies and grocery stores offer automated blood pressure machines for your use. Follow Up: If your blood pressure is high (over 120/80) on 2 out of 3 days, you will need to follow up with your doctor for further evaluation and treatment. DO NOT PUT THIS OFF! Untreated high blood pressure increases the risk for heart attack, also known as acute myocardial infarction, or AMI, and stroke. It is a treatable condition. Get Prompt Medical Attention if any of the following occur: ?? Chest pain or shortness of breath ?? Severe headache ?? Throbbing or rushing sound in the ears ?? Nosebleed ?? Sudden severe abdominal pain ?? Extreme drowsiness, confusion or fainting ?? Dizziness or vertigo (dizziness with spinning sensation) ?? Weakness of an arm or leg or one side of the face ?? Difficulty with speech or vision ?? [phone] Formerly [facility], [address] [place] [address], [place] [address]. All rights reserved. This information is not intended as a substitute for professional medical care. Always follow your healthcare professional's instructions. Consider Using Patient Online Services Patient Online [...] if you dont have one. Go to [email or web address] and click on Create Your Account. Then, follow the directions to complete the online form. Youll be asked for your [facility] number which you can find at the top of this document. Your Goals/Additional instructions: This document has images extracted. Please consider using [email or web address] for all your patient education needs. Source: [facility] POWERCHART Document Id: [id number] Miscellaneous - Mony Cespedes APRN, C.N.P. - 02/22/2017 10:17 AM CDT Ambulatory Discharge Medication List [address] [id number] Visit Information Name: DANE JOSEPH Jr. [facility] Number: [id number] Current Date: 02/22/2017 10:17:36 Attending Provider: MONY CESPEDES APRN MARKETING ENGINE[employer] Primary Care Provider: ABHI ARELLANO MD DANE JOSEPH Jr. has been given the following list of [...] (aspirin) 81 mg, Oral, once a day cephalexin (cephalexin 500 mg oral capsule) 1 cap, Oral, three times a day x 10 day(s) [facility] [address] [address] lovastatin (lovastatin) 40 mg, Oral, once a day Stop Taking the Following Medications: Medication list as of 02-22-17 10:17 Attention: If you have any medications at home that are not on this list, DO NOT take them until youcontact your provider for clarification. Give a copy of your medication list to your primary care provider. Update your medication list any time medications or doses are changed and carry your medication list at all times in case of emergency. Electronically Signed By: MONY CESPEDES APRN MARKETING ENGINEER Signed On:22-FEB-2017 10:17:22 Additional Information: Source: [facility] POWERCHART Document Id: [id number] Miscellaneous - Heidy Levy L.P.N. - 02/22/2017 9:59 AM CDT Ambulatory Vitals Height Weight Ambulatory Vitals Height Weight Entered On: 02/22/2017 10:01 CDT Performed On: 02/22/2017 9:59 CDT by HEIDY LEVY LPN Vitals/Ht/Wt Systolic Blood Pressure : 148 mmHg (HI) Diastolic Blood Pressure : 80 mmHg NIBP Mean : 103 mmHg BP Location : Left upper extremity Blood Pressure Cuff Size : Large HEIDY LEVY LPN - 02/22/2017 9:59 CDT Source: Andre Phillipe Document Id: [id number] CDT!7 Miscellaneous - Heidy Levy L.P.N. - 02/22/2017 9:52 AM CDT Adult Rouge Sifter Intake/History Adult Rouge Sifter Intake/History Entered On: 02/22/2017 9:59 CDT Performed On: 02/22/2017 9:52 CDT by HEIDY LEVY LPN Intake Temperature Core : 36.7 DegC(Converted to: 98.1 DegF) HEIDY LEVY LPN - 02/22/2017 10:01 CDT Chief Complaint : Right 5th finger swollen and painful. Started a couple of weeks ago. Peripheral Pulse Rate : 68 /min Respiratory Rate : 16 /min Systolic Blood Pressure : 164 mmHg (>HHI) Diastolic Blood Pressure : 80 mmHg NIBP Mean : 108 mmHg BP Location : Left upper extremity Blood Pressure Cuff Size : Large Actual Weight : 89.55 kg(Converted to: 197 lb 7 oz) Weight Source : Standing scale Dosing Weight Clinic : 89.55 kg HEIDY LEVY [facility] - 02/22/2017 9:52 CDT General Info Languages : Pakistani Is Patient Female and 13-50 no hysterectomy : No HEIDY LEVY [facility] - 02/22/2017 9:52 CDT Subjective Pain Symptoms : Yes HEIDY LEVY [facility] - 02/22/2017 9:52 CDT Pain Scale Pain Scale Verbal 0-10 : Open HEIDY LEVY [facility] - 02/22/2017 9:52 CDT Pain Pain Assessment Grid Pain 1 Location : Finger Laterality : Right Intensity : 8 HEIDY LEVY [facility] - 02/22/2017 9:52 CDT Dependent Habits Exposure to Tobacco Smoke : Other: never Smoking Status : Never smoker Tobacco 2A : No Tobacco Use/Currently Using : No Tobacco Use/Last 30 Days : No Tobacco Use/Last 12 months : No HEIDY LEVY [facility] - 02/22/2017 9:52 CDT Source: Andre Phillipe Document Id: [id number] CDT!3 documented in this encounter Plan of Treatment Upcoming Encounters Date Type Specialty Care Team Description 07/22/2022 Office Visit Urology Alexy Yuan M .D. [address] [place], [place] [phone] (Wo rk) 07/22/2022 Appointment Radiation Oncology Sun Hope M.D., Ph.D. [address] [place], [place] [phone] (Wo rk) documented as of this encounter Procedures Procedure Name Priority Date/Time Associated Diagnosis Comme nts BACTERIAL CULTURE, Routine 02/22/2017 10:08 AM Re sults for this AEROBIC CDT procedure are i n the results section. documented in this encounter Results (ABNORMAL) Bacterial Culture, Aerobic (02/22/2017 10:08 AM CDT) [facility] gist Method Time Signature Organism (POSITIVE) POWERCHART Refer for ID, Aerobic Bact HX GS No PMN's POWERCHART seen. HX GS No organisms POWERCHART seen. HXPre Rare Staph POWERCHART not aureus isolated. No further studies. HXFinal Rare Staph POWERCHART not aureus isolated. No further studies. Specimen (Source) Anatomical Collection Method Collection Time Re ceived Time Location / / Volume Laterality Cellulitis 02/22/2017 10:08 (Finger, Right) AM CDT Mony Cespedes APRN C.N.P. LAB MICROBIOLOGY - GENERAL ORDERABLES Performing Organization Address City/State/ZIP Code Phon e Number POWERCHART documented in this encounter Visit Diagnoses Not on filedocumented in this encounter
--- OUTSIDE RECORDS SUMMARY | 2022-07-07 12:03 | XMS_ITS | Encounter Summary ---
:1945 Author Organization [facility] Address [address] [place] [address] Care Team Providers Name Role Phone Ginger Fernández M.D. Primary Care Provider Encounter Details Date Type Department Care Team Description 07/29/2017 Abstract Department of Family Medicine, Provider, Historical [facility], in [place] [address] [place] [address] Social History Tobacco Use Types Packs/Day Years Used Date Smoking Tobacco: Never Alcohol Habits Answer Date Recorded How often do you have a drink containing 4 or more times a w [place] 02/05/2022 alcohol? How many drinks containing alcohol [...] or relatives? How often do you attend alevism or More than 4 times per year 04/15/2021 yazdanism services? Do you belong to any clubs or Yes 02/05/2022 organizations such as alevism groups, unions, fraternal or athletic groups, or [...] Urology Alexy Yuan M .D. [address] [place] [phone] (Wo rk) 07/22/2022 Appointment Radiation Oncology Sun Hope M.D., Ph.D. [address] [place] [phone] (Wo rk) documented as of this encounter Procedures Procedure Name Priority Date/Time Associated Diagnosis Comme nts LIPID PANEL, S Routine 04/01/2017 12:00 AM Result s for this CDT procedure are i n the results section . documented in this encounter Results Lipid Panel (04/01/2017 12:00 AM CDT) [facility] gist Method Time Signature EXT 142 not available EXTERNAL Cholesterol, NON-INTERFACE Total, S D LAB EXT 101 not available EXTERNAL Triglycerides, NON-INTERFACE S D LAB EXT 41 not available EXTERNAL Cholesterol, NON-INTERFACE HDL, S D LAB EXT Calculated 81 not available EXTERNAL LDL NON-INTERFACE D LAB Specimen (Source) Anatomical Location Collection Method / Collectio n Time Received Time / Laterality Volume Blood (Blood, 04/01/2017 Venous) Historical Provider LAB BLOOD NON ADD-ON Performing Organization Address City/State/ZIP Code Phon e Number EXTERNAL NON-INTERFACED LAB [address] [place], [place] [address] documented in this encounter Visit Diagnoses Not on filedocumented in this encounter Care Teams Manager Inventory Relationship Specialty Start Date End Date Ginger Fernández M.D. PCP - General 02/25/17 12/15/18 documented as of this encounter
--- OUTSIDE RECORDS SUMMARY | 2022-07-07 12:03 | XMS_ITS | Encounter Summary ---
:1945 Author Organization [facility] Address [address] [place] [address] Care Team Providers Name Role Phone Ginger Fernández M.D. Primary Care Provider Encounter Details Date Type Department Care Team Description 03/05/2017 Hospital Encounter HX [facility] David Manzano M.D. [address] [place], [place] [phone] (Wo rk) Social History Tobacco Use Types Packs/Day Years Used Date Smoking Tobacco: Never Alcohol Habits Answer Date Recorded How often do you have a drink containing 4 or more times a w [place] 02/05/2022 alcohol? How many drinks containing alcohol [...] Sign Reading Time Taken Comments Blood Pressure 138/84 03/05/2017 1:52 PM CDT Pulse 84 03/05/2017 1:47 PM CDT Temperature - - Respiratory Rate 16 03/05/2017 1:47 PM CDT Oxygen Saturation - - Inhaled Oxygen Concentration - - Weight 88.9 kg (195 lb 15.8 oz) 03/05/2017 1:47 PM CDT Height - - Body Mass Index 27.75 03/19/2016 8:26 AM CDT documented in this encounter Medications at Time of Discharge Medication Sig Dispensed Refills Start Date End Date aspirin 81 mg chewable Chew 1 tablet daily. 0 03/2013 tablet CHOLECALCIFEROL, VITAMIN Take 1 capsule by 0 03/201603/14/2021 D3, ORAL mouth daily. Dose unknown documented as of this encounter Progress Notes David Wright M.D. - 03/05/2017 1:34 PM CDT [id number] CHIEF COMPLAINT/REASON FOR VISIT Follow up on right fifth finger infection and elevated blood pressure. HISTORY OF PRESENT ILLNESS Dane MckeonJulian Charles is a 71-year-old male who presents to the clinic for follow up on right fifth finger infection. He was recently seen in clinic on February 22 for swelling, pain, and drainage of the rightfifth finger. This had initially started around two to three weeks prior to as some slight swelling. It became more swollen around Day, and the patient was able to express drainage. He was soaking regularly at the time, and thought that it was healing with improved swelling and clear drainage. However, the swelling recurred more severely and no drainage was able to be expressed,which prompted his recent clinic visit. Aerobic culture isolated rare non-aureus Staph. This was treated with course of Keflex. The patient continues to have swelling, redness, and warmth by the nail though this has significantly improved since antibiotic course. He denies any fever, trauma, psoriasis, eczema, or other skin issues. Charles expresses concern regarding elevated blood pressure. He typically follows with Dr. Reaves at [facility] for annual physicals with upcoming visit, and blood pressure at the last visit was borderline elevated. Shortly after this, the patient had it checked outside of the clinic with readings mildly elevated. He then forgot about it until elevated blood pressure was noted at his recent clinic visit with Rajani Arzate CNP for his infected finger. Rajani had wanted to start him on an anti-hypertensive though he deferred at the time. The last couple of his blood pressure readings in clinic have been elevated with systolics over 140, including todays initial reading. Charles notes some unusual fatigue while trail hiking in [place], but had attributed this to the higher elevation. His fatigue did improve over the course of his stay. Since his blood pressure had been noted, he has noticed increased fatigue with during his usual activities such as mowing the lawn. The patient mentions that he is interested in establishing care closer to [place] since it can be difficult to get into [facility]. Of note, he is leaving on Wednesday for an extended trip to [place]. There are no further concernsat this time. MEDICATIONS Post-visit Medication Reconciliation. Reviewed and are as outlined in the EMR with following change: Keflex 500 mg by mouth three times a day for 10 days. Prescribed today. ALLERGIES No known drug allergies. SYSTEMS REVIEW Please see HPI for pertinent positives, otherwise rest of ROS negative. PAST MEDICAL/SURGICAL HISTORY PAST SURGICAL HISTORY: 1. Left knee arthroscope secondary to a meniscal injury 05/13/2006. 2. Tonsillectomy as a child. OTHER HEALTH PROBLEMS: 1. Atypical chest pain with negative sestamibi 07/02/2014 at [facility]. 2. Recurrent cold sores. 3. Degenerative joint disease. 4. Hyperglycemia. 5. Hyperlipidemia. 6. Peripheral neuropathy, etiology not clear. OTHER INJURIES: 1. Has fractured both of his arms, one by description was an open fracture but did not require any surgery. 2. Hospitalization for face paresthesia at [facility] in the distant past, with no residual. PREVENTIVE SERVICES: Tobacco: None. Colon screen: 10/24/2007, [facility]. Recheck planned for 10 years. Depression: Negative. Asthma: Negative. Lipids: 07/05/2015. Tetanus: 04/13/2006. SOCIAL HISTORY Alcohol: Daily to every other day. Caffeine: A couple cups of coffee each day, diet soda every 3 days. No tea. FAMILY HISTORY Mother at age 89, spent the last 3 years in the half-way secondary to a fracture from whichshe never recovered. Father at age 69 of an MT and had a CABG x4 vessels. Brother and a sister alive and well. Three children who are alive and well. VITAL SIGNS WEIGHT: 88.90 kg. TEMP: 36.9 Deg C. PULSE: 84 /min. RESP RATE: 16 /min. SYSTOLIC: 150 mmHg. DIASTOLIC: 82 mmHg. SYSTOLIC RECHECK: 138 mmHg. DIASTOLIC RECHECK: 84 mmHg. SYSTOLIC RECHECK: 140 mmHg. DIASTOLIC RECHECK: 78 mmHg. PHYSICAL EXAMINATION GENERAL: Patient is alert and oriented times three, in no acute distress, good hygiene and is dressed appropriately. ENT: Tympanic membranes are normal bilaterally. Oropharynx is without erythema or exudate. Nasal mucosa is without injection. NECK: Neck is supple. LYMPH NODES: Not palpably enlarged and no nodules are palpated. HEART: Regular rate and rhythm without murmur. LUNGS: Clear to auscultation. ABDOMEN: Soft and nontender with no masses. EXTREMITIES: No tenderness to palpation or swelling noted over the PIP joint. Mild swelling of DIP joint distally. Erythema noted mostly on the dorsal aspect between the DIP and base of the nail. This area is swollen, but does not seem to extend beyond base of nail. There is a vertical ridge noted in midline of the nail. IMPRESSION/REPORT/PLAN 1. Cellulitis of the right fifth finger, likely initially a mucous cyst affecting nail growth: This was discussed with the patient in detail, and all questions were answered. We will proceed with another course of Keflex 500 mg by mouth three times a day for 10 days. 2. Elevated blood pressure, no prior history of hypertension: I think it would be reasonable clinically to continue monitoring and to work on lifestyle modifications until his physical with Dr. Reaves. I recommended decreasing his dietary caffeine and sodium intake, and to avoid stress or worry about this. He will follow up with Dr. Reaves when he comes back from [place]. 3. Followup: Patient will follow up for recheck of the right fifth finger once her returns from [place]. He will contact the clinic with questions or concerns prior to this time. This document serves as a record of services personally performed by David Rayo MD. It was created on their behalf by Mckenzie Butcher, a trained medical information specialist. The creation of this record is based on the scribe's personal observations and the provider's statements to them. This document has been immanuel cked and approved by the attending provider. David Lui M.D./yordy Electronically Signed By: DAVID WRIGHT MD On: 04/01/2017 10:53 PM Source: [facility] MHSDOLBEYNONRADSYS Document Id: [id number] documented in this encounter Miscellaneous Notes Miscellaneous - Ale Taylor, L.P.N. - 03/05/2017 1:52 PM CDT Ambulatory Vitals Height Weight Ambulatory Vitals Height Weight Entered On: 03/05/2017 13:56 CDT Performed On: 03/05/2017 13:52 CDT by ALE TAYLOR LPN Vitals/Ht/Wt Systolic Blood Pressure : 138 mmHg Diastolic Blood Pressure : 84 mmHg NIBP Mean : 102 mmHg BP Location : Left upper extremity Blood Pressure Cuff Size : Regular ALE TAYLOR BANDMILL OPERATOR - 03/05/2017 13:52 CDT Source: [facility] POWERCHART Document Id: [id number] CDT!7 Miscellaneous - Ale Taylor L.P.N. - 03/05/2017 1:50 PM CDT Health Assessment Health Assessment Entered On: 03/05/2017 13:52 CDT Performed On: 03/05/2017 13:50 CDT by ALE TAYLOR LPN Health Assessment Complete Health Assessment Complete or Modified : Annual Health Assessment Annual Health Assessment Completed : Yes ALE TAYLOR LPN - 03/05/2017 13:50 CDT Nutrition Nutrition Risk Factors by History Adult : None ALE TAYLOR LPN - 03/05/2017 13:50 CDT Functional Living Situation : Home independently Current Daily Living Assistance : None ALE TAYLOR LPN - 03/05/2017 13:50 CDT Dependent Habits Exposure to Tobacco Smoke : Other: never Smoking Status : Never smoker Tobacco 2A : No Tobacco Use/Currently Using : No Tobacco Use/Last 30 Days : No Tobacco Use/Last 12 months : No Alcohol Use : Yes ALE TAYLOR LPN - 03/05/2017 13:50 CDT Caffeine Use Grid Caffeine Use : Current Type : Chocolate, Coffee, Soft drinks Frequency : Daily ALE TAYLOR LPN - 03/05/2017 13:50 CDT AUDIT Tool How Often Do You Have A Drink : 4 or more times a week How Many Drinks in a Day When Drinking : 1 or 2 Six or More Drinks On One Occassion : Never Audit Phase 1 Score : 4 ALE TAYLOR LPN - 03/05/2017 13:50 CDT Psychosocial Domestic Abuse Concerns : None Behavioral Health Screen/Safety Assmt : No Hoahaoism Preference : Choose Not to Give ALE TAYLOR LPN - 03/05/2017 13:50 CDT Advance Directive Advanced Directives : Yes Advance Directive Type : Living will Advance Directive Location : Scanned into EMR ALE TAYLOR LPN - 03/05/2017 13:50 CDT Educ Needs Learning Style Preference Adult Grid Patient : Demonstration, Printed materials, Verbal explanation Family : None ALE TAYLOR LPN - 03/05/2017 13:50 CDT [facility] Document Id: [id number] CDT!39 Miscellaneous - Ale Taylor L.P.N. - 03/05/2017 1:47 PM CDT Adult Drug Abuse Social Worker Intake/History Adult Drug Abuse Social Worker Intake/History Entered On: 03/05/2017 13:50 CDT Performed On: 03/05/2017 13:47 CDT by ALE TAYLOR LPN Intake Chief Complaint : 1) recheck infected finger 2) concerns with elevated blood pressure Temperature Core : 36.9 DegC(Converted to: 98.4 DegF) Peripheral Pulse Rate : 84 /min Respiratory Rate : 16 /min Systolic Blood Pressure : 150 mmHg (HI) Diastolic Blood Pressure : 82 mmHg NIBP Mean : 105 mmHg BP Location : Left upper extremity Blood Pressure Cuff Size : Regular Actual Weight : 88.90 kg(Converted to: 196 lb 0 oz) Weight Source : Standing scale Dosing Weight Clinic : 88.9 kg Prosthetic device on during patient weight : No ALE TAYLOR LPN - 03/05/2017 13:47 CDT General Info Information Given By : Patient Preferred Communication Mode : Verbal Languages : Frisian Is Patient Female and 13-50 no hysterectomy : No ALE TAYLOR LPN - 03/05/2017 13:47 CDT Subjective Pain Symptoms : Yes ALE TAYLOR LPN - 03/05/2017 13:47 CDT Pain Scale Pain Scale Verbal 0-10 : Open ALE TAYLOR LPN - 03/05/2017 13:47 CDT Pain Pain Assessment Grid Pain 1 Location : Finger Laterality : Right Intensity : 3 ALE TAYLOR LPN - 03/05/2017 13:47 CDT Dependent Habits Exposure to Tobacco Smoke : Other: never Smoking Status : Never smoker Tobacco 2A : No Tobacco Use/Currently Using : No Tobacco Use/Last 30 Days : No Tobacco Use/Last 12 months : No ALE TAYLOR LPN - 03/05/2017 13:47 CDT [facility] Document Id: [id number] CDT!37 documented in this encounter Plan of Treatment Upcoming Encounters Date Type Specialty Care Team Description 07/22/2022 Office Visit Urology Alexy Yuan M .D. [address] [place] [phone] (Wo rk) 07/22/2022 Appointment Radiation Oncology Sun Hope M.D., Ph.D. [address] [place] [phone] (Wo rk) documented as of this encounter Visit Diagnoses Not on filedocumented in this encounter Care Teams Sugar Mixer Relationship Specialty Start Date End Date Ginger Fernández M.D. PCP - General 02/25/17 12/15/18 documented as of this encounter
--- OUTSIDE RECORDS SUMMARY | 2022-07-07 12:03 | XMS_ITS | Encounter Summary ---
:1945 Author Organization [facility] Address [address] [place] [address] Care Team Providers Name Role Phone Ginger Fernández M.D. Primary Care Provider Reason for Visit Reason Onset Date Comments 03/30 pre visit orders 02/18/2018 Encounter Details Date Type Department Care Team Description 02/18/2018 Clinical Communication Division of Desirae Buckner 03/30 pre visit Internal Medicine Michael Chowdhury orders in [place], [place] [address] [place] [phone] Social History Tobacco Use Types Packs/Day Years Used Date Smoking Tobacco: Never Alcohol Habits Answer Date Recorded How often do you have a drink containing 4 or more times a w [place] 02/05/2022 alcohol? How many drinks containing alcohol [...] or relatives? How often do you attend moravian or More than 4 times per year 04/15/2021 holiness services? Do you belong to any clubs or Yes 02/05/2022 organizations such as moravian groups, unions, fraternal or athletic groups, or [...] or slept in a long-term (including now)? Sex Assigned at Date Recorded Male 03/27/2018 8:35 PM CDT documented as of this encounter Miscellaneous Notes Telephone Encounter - Adelina Uribe - 02/18/2018 9:12 AM CDT New concerns since last visit: None Additional scheduling considerations: None Patient expectations for Prev Services and/or other specialty follow up with indications: Routine testing and bloods, I have called him twice to ask about other concerns, no call back yet Tests/Consults already ordered: Dr. Humphries, bloods ECG are in place that he ordered documented in this encounter Plan of Treatment Upcoming Encounters Date Type Specialty Care Team Description 07/22/2022 Office Visit Urology Alexy Yuan M .D. [address] [place], [place] [phone] (Meir cronin) 07/22/2022 Appointment Radiation Oncology Sun Hope M.D., Ph.D. [address] [place], [place] [phone] (Wo rk) documented as of this encounter Visit Diagnoses Not on filedocumented in this encounter Care Teams Culinary Arts Teacher Relationship Specialty Start Date End Date Ginger Fernández M.D. PCP - General 02/25/17 12/15/18 documented as of this encounter
--- OUTSIDE RECORDS SUMMARY | 2022-07-07 12:03 | XMS_ITS | Encounter Summary ---
:1945 Author Organization [facility] Address [address] [place] [address] Care Team Providers Name Role Phone Unavailable Primary Care Provider Unavailable Encounter Details Date Type Department Care Team Description 02/22/2017 Hospital Encounter HX NO MAPPING Rajani Arzate, PHOTOGRAPHERS' MODEL, C.N.P. [address] [place], [place] [phone] (Wo rk) Social History [...] or relatives? How often do you attend jainism or More than 4 times per year 04/15/2021 judaism services? Do you belong to any clubs or Yes 02/05/2022 organizations such as jainism groups, unions, fraternal or athletic groups, or [...] Dose unknown documented as of this encounter Miscellaneous Notes Miscellaneous - Conversion, Historical Provider Ser - 02/22/2017 11:59 PM CDT Coding Summary-Paper Based CODING DATE: 03/04/2017 FINAL [facility] STATUS: * Discharged to Home or Self Care PAYOR: Medicare ADMIT DX: REASON FOR VISIT DX: FINAL DX: PRINCIPAL: L03.011 Cellulitis of right finger SECONDARY: PROCEDURES DOCTOR NAME DATE NOTE: The code number assigned matches the documented diagnosis and / or procedure in the patient's chart. However, the narrative phrase printed from the coding software may appear abbreviated, or result in slightly different terminology. Coded By: CROW MAGDALENO Date Saved: 03/04/2017 01:27 pm [facility] Document Id: [id number] documented in this encounter Plan of Treatment Upcoming Encounters Date Type Specialty Care Team Description 07/22/2022 Office Visit Urology Alexy Yuan M .D. [address] [place], [place] [phone] (Meir cronin) 07/22/2022 Appointment Radiation Oncology Sun Hope M.D., Ph.D. [address] [place], [place] [phone] (Meir cronin) documented as of this encounter Visit Diagnoses Not on filedocumented in this encounter
--- OUTSIDE RECORDS SUMMARY | 2022-07-07 12:03 | XMS_ITS | Encounter Summary ---
:1945 Author Organization [facility] Address [address] [place] [address] Care Team Providers Name Role Phone Ginger Fernández M.D. Primary Care Provider Encounter Details Date Type Department Care Team Description 07/14/2017 Hospital Encounter HX NO MAPPING Provider, Historical Social History Tobacco Use Types Packs/Day Years [...] More than 4 times per year 04/15/2021 protestant services? Do you belong to any clubs [...] Urology Alexy Yuan M .D. [address] [place], [place] [phone] (Meir cronin) 07/22/2022 Appointment Radiation Oncology Sun Hope M.D., Ph.D. [address] [place], [place] [phone] (Meir cronin) documented as of this encounter Visit Diagnoses Not on filedocumented in this encounter Care Teams Shop And Alteration Tailor Relationship Specialty Start Date End Date Ginger Fernández M.D. PCP - General 02/25/17 12/15/18 documented as of this encounter
--- OUTSIDE RECORDS SUMMARY | 2022-07-07 12:03 | XMS_ITS | Encounter Summary ---
:1945 Author Organization [facility] Address [address] [place] [address] Care Team Providers Name Role Phone Ginger Fernández M.D. Primary Care Provider Encounter Details Date Type Department Care Team Description 02/15/2018 Abstract DATA ABSTRACTION Provider, Historical Social History Tobacco Use Types Packs/Day Years Used Date Smoking Tobacco: Never Alcohol Habits Answer Date Recorded How often do you have a drink containing 4 or more times a w [place] 02/05/2022 alcohol? How many drinks containing alcohol [...] Urology Alexy Yuan M .D. [address] [place], [place] [phone] (Wo rk) 07/22/2022 Appointment Radiation Oncology Sun Hope M.D., Ph.D. [address] [place], [place] [phone] (Wo rk) documented as of this encounter Visit Diagnoses Not on filedocumented in this encounter Care Teams Animal Impersonator Relationship Specialty Start Date End Date Ginger Fernández M.D. PCP - General 02/25/17 12/15/18 documented as of this encounter
--- OUTSIDE RECORDS SUMMARY | 2022-07-07 12:03 | XMS_ITS | Encounter Summary ---
:1945 Author Organization [facility] Address [address] [place] [address] Care Team Providers Name Role Phone Ginger Fernández M.D. Primary Care Provider Encounter Details Date Type Department Care Team Description 03/24/2017 Hospital Encounter HX [facility] Radha Manzano M.D. [address] [place], [place] [phone] (Wo rk) Social History Tobacco Use Types Packs/Day Years Used Date Smoking Tobacco: Never Alcohol Habits Answer Date Recorded How often do you have a drink containing 4 or more times a w [place] 02/05/2022 alcohol? How many drinks containing alcohol [...] Sign Reading Time Taken Comments Blood Pressure 130/72 03/24/2017 11:58 AM CDT Pulse 76 03/24/2017 11:58 AM CDT Temperature - - Respiratory Rate 16 03/24/2017 11:58 AM CDT Oxygen Saturation - - Inhaled Oxygen Concentration - - Weight 87.8 kg (193 lb 9 oz) 03/24/2017 11:58 AM CDT Height 181 cm (5' 11.26) 03/24/2017 11:58 AM CDT Body Mass Index 26.8 03/24/2017 11:58 AM CDT documented in this encounter Medications at Time of Discharge Medication Sig Dispensed Refills Start Date End Date aspirin 81 mg chewable Chew 1 tablet daily. 0 03/2013 tablet CHOLECALCIFEROL, VITAMIN Take 1 capsule by 0 03/201603/14/2021 D3, ORAL mouth daily. Dose unknown documented as of this encounter Progress Notes Radha Wright M.D. - 03/24/2017 11:23 AM CDT [id number] CHIEF COMPLAINT/ REASON FOR VISIT Recheck cellulitis and elevated blood pressure. HISTORY OF PRESENT ILLNESS Charles is a 71 year old male who presents to the clinic today for recheck cellulitis and elevated blood pressure. I initially saw him on 03/05 and diagnosed him with cellulitis of his right fifth finger, likely initially a mucous cyst affecting nail growth. I treated him with Keflex 500 mg three times a day for 10 days. He notes that it is still difficult to bend. There is no longer any pain. He feels like there is still something wrong with it and it is not same as his left side. He was also noted to have elevated blood pressure at our last visit. He worked on lifestyle modification and decreased his caffeine use and his blood pressure has improved. The patient denies any additional questions or concerns at this time. MEDICATIONS Post-visit Medication Reconciliation Reviewed and are as outlined in the EMR dated 03/24/2017. ALLERGIES No known allergies. SYSTEMS REVIEW Please see HPI for pertinent positives, otherwise rest of ROS negative. PAST MEDICAL/SURGICAL HISTORY PAST SURGICAL HISTORY: 1. Left knee arthroscope secondary to a meniscal injury 05/13/2006. 2. Tonsillectomy as a child. OTHER HEALTH PROBLEMS: 1. Atypical chest pain with negative sestamibi 07/02/2014 at [facility]. 2. Recurrent cold sores. 3. Degenerative joint disease. 4. Hyperglycemia. 5. Hyperlipidemia. 6. Peripheral neuropathy, etiology not clear. OTHER INJURIES: 1. Has fractured both of his arms, one by description was an open fracture but did not require any surgery. 2. Hospitalization for face paresthesia at [facility] in the distant past, with no residual. PREVENTIVE SERVICES Tobacco use: none, never smoker. VITAL SIGNS TEMP: 37 Deg C. PULSE: 76 /min. RESP: 16 /min. SYSTOLIC: 130 mmHg. DIASTOLIC: 72 mmHg. PHYSICAL EXAMINATION GENERAL: Patient is alert and oriented times three, in no acute distress, good hygiene and is dressed appropriately. EXTREMITIES: Examination of the right fifth finger shows swelling at the base of the nail to the DIPjoint. The radial aspect of the nail is ridged and pitted. IMPRESSION/REPORT/PLAN 1. Cellulitis of the right 5th finger, seems to be resolved. I am still suspicious for an underlyingmass, given the continued swelling and nail deformity. He will discuss this with his internal medicine provider at [facility]. 2. Follow up: The patient will update me after his appointment with Dr. Reaves. This document serves as a record of services personally performed by Radha Rayo MD. It was created on their behalf by Elisa Zhang, a trained medical collector. The creation of this record is based on the scribe's personal observations and the provider's statements to them. This document has been ch ecked and approved by the attending provider. Radha Lui M.D./vazquez Electronically Signed By: RADHA WRIGHT MD On: 04/01/2017 10:51 PM Source: [facility] PAT Document Id: [id number] documented in this encounter Miscellaneous Notes Miscellaneous - Helio Taylor, L.P.N. - 03/24/2017 11:58 AM CDT Adult Linen Room Attendant Intake/History Adult Linen Room Attendant Intake/History Entered On: 03/24/2017 12:02 CDT Performed On: 03/24/2017 11:58 CDT by HELIO TAYLOR LPN Intake Chief Complaint : 1) follow up to cellulitis in right fifth finger 2) follow up to elevated blood pressure Temperature Core : 37 DegC(Converted to: 98.6 DegF) Peripheral Pulse Rate : 76 /min Respiratory Rate : 16 /min Systolic Blood Pressure : 130 mmHg Diastolic Blood Pressure : 72 mmHg NIBP Mean : 91 mmHg BP Location : Left upper extremity Blood Pressure Cuff Size : Regular Height : 181 cm(Converted to: 5 ft 11 inch(es), 71 inch(es)) Actual Weight : 87.80 kg(Converted to: 193 lb 9 oz) Weight Source : Standing scale Dosing Weight Clinic : 87.8 kg Prosthetic device on during patient weight : No Clinic BSA : 2.1 Body Mass Index : 26.8 kg/m2 HELIO TAYLOR ROCKET ENGINE MECHANIC - 03/24/2017 11:58 CDT General Info Information Given By : Patient Preferred Communication Mode : Verbal Languages : Guyanese Is Patient Female and 13-50 no hysterectomy : No HELIO TAYLOR LPN - 03/24/2017 11:58 CDT Subjective Pain Symptoms : No HELIO TAYLOR LPN - 03/24/2017 11:58 CDT Dependent Habits Exposure to Tobacco Smoke : Other: never Smoking Status : Never smoker Tobacco 2A : No Tobacco Use/Currently Using : No Tobacco Use/Last 30 Days : No Tobacco Use/Last 12 months : No HELIO TAYLOR LPN - 03/24/2017 11:58 CDT Caffeine Use Grid Caffeine Use : Current Type : Chocolate, Coffee, Soft drinks Frequency : Daily HELIO TAYLOR ROCKET ENGINE MECHANIC - 03/24/2017 11:58 CDT Source: [facility] Moka Document Id: [id number] documented in this encounter Plan of Treatment Upcoming Encounters Date Type Specialty Care Team Description 07/22/2022 Office Visit Urology Alexy Yuan M .D. [address] [place] [phone] (Wo rk) 07/22/2022 Appointment Radiation Oncology Sun Hope M.D., Ph.D. [address] [place], [place] [phone] (Wo rk) documented as of this encounter Visit Diagnoses Not on filedocumented in this encounter Care Teams Audiology Director Relationship Specialty Start Date End Date Ginger Fernández M.D. PCP - General 02/25/17 12/15/18 documented as of this encounter
--- OUTSIDE RECORDS SUMMARY | 2022-07-07 12:03 | XMS_ITS | Encounter Summary ---
:1945 Author Organization [facility] Address [address] [place] [address] Care Team Providers Name Role Phone Ginger Fernández M.D. Primary Care Provider Encounter Details Date Type Department Care Team Description 07/09/2017 Hospital Encounter HX NO MAPPING Social History [...] slept in a senior living (including now)? Sex Assigned at Date Recorded [...] Urology Alexy Yuan M .D. [address] [place], [place] [phone] (Meir cronin) 07/22/2022 Appointment Radiation Oncology Sun Hope M.D., Ph.D. [address] [place], [place] [phone] (Meir cronin) documented as of this encounter Visit Diagnoses Not on filedocumented in this encounter Care Teams Pole Climber Relationship Specialty Start Date End Date Ginger Fernández M.D. PCP - General 02/25/17 12/15/18 documented as of this encounter
--- OUTSIDE RECORDS SUMMARY | 2022-07-07 12:05 | XMS_ITS | Continuity of Care Document ---
:1945 Author Organization [facility] Address [address] [place] [address]- Care Team Providers Name Role Phone PHYSICIAN, OUT OF AREA Primary Care Physician Unavailable Encounter [facility] [id number] Date(s): 09/21/19 - 09/21/[address] [address] [phone] Encounter Diagnosis Encounter for other preprocedural examination (Final) - 09/21/19 Unilateral primary osteoarthritis, left knee (Final) - 09/21/19 Hyperlipidemia, unspecified (Final) - 09/21/19 Essential (primary) hypertension (Final) - 09/21/19 Atherosclerotic heart disease of [place] coronary artery without angina pectoris (Final) - 09/21/19 shelter (current) use of aspirin (Final) - 09/21/19 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 therapy (Final) - 09/21/19 Attending Physician: Johnathan Shepard MD Allergies, Adverse Reactions, Alerts No Known Allergies Medications Aspirin Low Dose 81 mg, PO (oral), qDay, Refill #: 0 Start Date: 09/20/19 Status: Orderedatorvastatin 80 mg oral tablet 80 mg, = 1 tab(s) each dose, PO (oral), qAM, Refill #: 0 Start Date: 09/20/19 Status: Orderedlosartan 50 mg oral tablet 50 mg, = 1 tab(s) each dose, PO (oral), qAM, Refill #: 0 Start Date: 09/20/19 Status: Orderedmetoprolol succinate 25 mg oral tablet, extended release 25 mg, = 1 tab(s) each dose, PO (oral), qAM, Refill #: 0 Start Date: 09/20/19 Status: OrderedTylenol 500 mg oral tablet 1,000 mg, = 2 tab(s) each dose, PO (oral), bid, PRN PRN Instructions as needed for pain, Refill #: 0 Start Date: 09/20/19 Status: Ordered Results Laboratory List Name Date Auto Diff 09/21/19 CBC with Diff 09/21/19 Comprehensive Metabolic Panel (CMP) 09/21/19 Estimated GFR (GFR Estim) 09/21/19 Hemoglobin A1c (Hgb A1c) 09/21/19 HEMATOLOGY Most recent to oldest [Reference Range]: 1 WBC [4.0-11.0 x10^3/uL] 6.9 x10^3/uL (09/21/19 7:57 AM) RBC [4.30-5.90 x10^6/uL] 4.76 x10^6/uL (09/21/19 7:57 AM) Hgb [14.0-18.0 g/dL] 14.5 g/dL (09/21/19 7:57 AM) Hct [41.0-54.0 %] 45.0 % (09/21/19 7:57 AM) MCV [80.0-98.0 fL] 94.5 fL (09/21/19 7:57 AM) MCH [26.0-34.0 pg] 30.5 pg (09/21/19 7:57 AM) MCHC [32.0-37.0 g/dL] 32.2 g/dL (09/21/19 7:57 AM) RDW-CV [12.0-15.0 %] 14.1 % (09/21/19 7:57 AM) RDW-SD [36.0-48.0 fL] 49.1 fL *HI* (09/21/19 7:57 AM) PLT [145-450 x10^3/uL] 195 x10^3/uL (09/21/19 7:57 AM) Neutrophils [37.0-80.0 %] 60.6 % (09/21/19 7:57 AM) Lymphocytes [17.0-45.0 %] 25.3 % (09/21/19 7:57 AM) Monocytes [3.0-14.0 %] 9.5 % (09/21/19 7:57 AM) Eosinophil [0.0-5.0 %] 3.0 % (09/21/19 7:57 AM) Basophil [0.0-2.0 %] 0.9 % (09/21/19 7:57 AM) Neut Absolute [1.60-7.70 x10^3/uL] 4.19 x10^3/uL (09/21/19 7:57 AM) Lymph Absolute [1.00-4.00 x10^3/uL] 1.75 x10^3/uL (09/21/19 7:57 AM) [place] Absolute [0.10-1.40 x10^3/uL] .66 x10^3/uL (09/21/19 7:57 AM) Eos Absolute [0.00-0.40 x10^3/uL] .21 x10^3/uL (09/21/19 7:57 AM) Baso Absolute [0.00-0.30 x10^3/uL] .06 x10^3/uL (09/21/19 7:57 AM) Imm Gran Abs [0.00-0.10 x10^3/uL] .05 x10^3/uL (09/21/19 7:57 AM) Immature Gran [0.0-0.9 %] 0.7 % (09/21/19 7:57 AM) NRBC [<=0.0 %] 0.0 % (09/21/19 7:57 AM) CHEMISTRY Most recent to oldest [Reference Range]: 1 Hgb A1c [4.0-6.0 %] 5.5 % (09/21/19 7:57 AM) Glucose Random [74-106 mg/dL] 110 mg/dL *HI* (09/21/19 7:57 AM) BUN [6-20 mg/dL] 21 mg/dL *HI* (09/21/19 7:57 AM) Creatinine [0.9-1.3 mg/dL] 0.8 mg/dL *LOW* (09/21/19 7:57 AM) Sodium Level [136-145 mmol/L] 139 mmol/L (09/21/19 7:57 AM) Potassium Level [3.6-5.1 mmol/L] 4.3 mmol/L (09/21/19 7:57 AM) Chloride Level [101-111 mmol/L] 104 mmol/L (09/21/19 7:57 AM) CO2 [22.0-32.0 mmol/L] 27.0 mmol/L (09/21/19 7:57 AM) Calcium Level [8.5-10.1 mg/dL] 9.3 mg/dL (09/21/19 7:57 AM) Total Protein [6.4-8.2 g/dL] 7.3 g/dL (09/21/19 7:57 AM) Albumin Level [3.5-5.0 g/dL] 4.1 g/dL (09/21/19 7:57 AM) Globulin [2.6-3.8 g/dL] 3.2 g/dL (09/21/19 7:57 AM) Bili Total [0.3-1.2 mg/dL] 0.8 mg/dL (09/21/19 7:57 AM) Alk Phos [38-126 IU/L] 59 IU/L (09/21/19 7:57 AM) AST [15-41 IU/L] 31 IU/L (09/21/19 7:57 AM) ALT [17-63 IU/L] 41 IU/L (09/21/19 7:57 AM) Estimated GFR [>=59 mL/min/1.73m2] >60 mL/min/1.73m2 1 (09/21/19 7:57 AM) 1Result Comment: The equation has not been validated in patients older than 70. However a Modification of Diet in Renal Disease - derived estimated GFR may still be a useful tool for providers caring for patients older than 70.Orders for Microbiology Reports Name Date MRSA Screen 09/21/19 Microbiology Reports TEST:MRSA Screen STATUS:Auth (Verified) BODY SITE: SOURCE:[facility] COLLECTED DATE/TIME:09/21/19 7:58 AMFINAL REPORTNo methicillin resistant Staphylococcus aureus isolated Social History Social History Type Response Smoking Status Never Smoker Sex
--- OUTSIDE RECORDS SUMMARY | 2022-07-07 12:05 | XMS_ITS | Continuity of Care Document ---
:1945 Author Organization [facility] Address [address] [place] [address]- Care Team Providers Name Role Phone PHYSICIAN, OUT OF AREA Primary Care Physician Unavailable Encounter [facility] [id number] Date(s): 10/09/19 - 10/12/19 [address] [place] [address]- [phone] Encounter Diagnosis Hip osteoarthritis (Discharge Diagnosis) - 10/09/19 Osteoarthritis of left hip (Discharge Diagnosis) - 10/10/19 Discharge Disposition: Home Attending Physician: Johnathan Shepard MD Admitting Physician: Johnathan Shepard MD Problem List Condition Effective Dates Status Health Status Informant Hip osteoarthritis(Confirmed) Active Osteoarthritis of left hip(Confirmed) Active Allergies, Adverse Reactions, Alerts No Known Allergies Medications aspirin 81 mg oral delayed release tablet 81 mg, = 1 tab(s) each dose, PO (oral), bidMeals, Qty: 60 tab(s), Refill #: 0, [id number], 1 tab(s) PO (oral) bidMeals,x30 day(s) Start Date: 10/10/19 Stop Date: 11/09/19 Status: Orderedatorvastatin 80 mg oral tablet 80 mg, = 1 tab(s) each dose, PO (oral), qAM, Refill #: 0 Start Date: 09/20/19 Status: Ordereddocusate sodium 100 mg oral capsule 100 mg, = 1 capsules each dose, PO (oral), bid, Qty: 60 capsules, Refill #: 0, [id number], 1 capsules PO (oral) bid,x30 day(s) Start Date: 10/10/19 Stop Date: 11/09/19 Status: Orderedindomethacin 25 mg oral capsule 25 mg, = 1 capsules each dose, PO (oral), bidMeals, Qty: 24 capsules, Refill #: 0, [id number], 1 capsules PO (oral) bidMeals,x12 day(s) Start Date: 10/10/19 Stop Date: 10/22/19 Status: Orderedlosartan 50 mg oral tablet 50 mg, = 1 tab(s) each dose, PO (oral), qAM, Refill #: 0 Start Date: 09/20/19 Status: Orderedmagnesium hydroxide 24% oral concentrate 2.4 g, = 10 mL each dose, PO (oral), qDay, PRN Constipation, x 30 day(s), 300 mL, Refill #: 0, 0, MILK OF MAGNESIA - OVER THE COUNTER, [id number], 10 mL PO (oral) qDay,x30 day(s),PRN:Constipation,Instr:MILK OF MAGNESIA - OVER THE COU... Start Date: 10/10/19 Stop Date: 11/09/19 Status: Orderedmetoprolol succinate 25 mg oral tablet, extended release 25 mg, = 1 tab(s) each dose, PO (oral), qAM, Refill #: 0 Start Date: 09/20/19 Status: OrderedPercocet 5/325 oral tablet = 1 tab(s) each dose, PO (oral), q4h, PRN Pain, x 7 day(s), 30 tab(s), Refill #: 0, 0, status post left total hip replacement, Pharm[facility]: [id number], 1 tab(s) PO (oral) q4h,x7 day(s),PRN:Pain,Instr:status post left total hip replacement Start Date: 10/10/19 Stop Date: 10/17/19 Status: OrderedTylenol 500 mg oral tablet 1,000 mg, = 2 tab(s) each dose, PO (oral), bid, PRN PRN Instructions as needed for pain, Refill #: 0 Start Date: 09/20/19 Status: OrderedWalker - front wheeled walker Walker - front wheeled walker, each, use as directed. [employer]., Printer Location [id number], Supply, Instructions Replace Required Details, Print Requisition Start Date: 10/10/19 Status: Ordered Functional Status 10/11/19 Assistive Device Gait belt, Walker 10/11/19 Movement Active, Spontaneous, Symmetrical 10/09/19 Ambulation Independent Transferring Independent Mental Status 10/11/19 Affect/Behavior Appropriate Orientation Oriented X 4 10/09/19 Cognition Independent Results Laboratory List Name Date Auto Diff 10/11/19 CBC with Diff 10/11/19 Auto Diff 10/10/19 Basic Metabolic Panel (BMP) (Basi P) 10/10/19 CBC with Diff 10/10/19 Estimated GFR (GFR Estim) 10/10/19 Prothrombin Time with INR (PTINR) (PT) 10/09/19 Glucose POC J 10/09/19 HEMATOLOGY Most recent to oldest [Reference Range]: 1 2 WBC [4.0-11.0 x10^3/uL] 8.2 x10^3/uL 15.2 x10^3/uL (10/11/19 1:07 AM) *HI* (10/10/19 1:15 AM) RBC [4.30-5.90 x10^6/uL] 2.95 x10^6/uL 3.62 x10^6/uL *LOW* *LOW* (10/11/19 1:07 AM) (10/10/19 1:15 AM) Hgb [14.0-18.0 g/dL] 9.2 g/dL 11.3 g/dL *LOW* *LOW* (10/11/19 1:07 AM) (10/10/19 1:15 AM) Hct [41.0-54.0 %] 27.7 % 34.0 % *LOW* *LOW* (10/11/19 1:07 AM) (10/10/19 1:15 AM) MCV [80.0-98.0 fL] 93.9 fL 93.9 fL (10/11/19 1:07 AM) (10/10/19 1:15 AM) MCH [26.0-34.0 pg] 31.2 pg 31.2 pg (10/11/19 1:07 AM) (10/10/19 1:15 AM) MCHC [32.0-37.0 g/dL] 33.2 g/dL 33.2 g/dL (10/11/19 1:07 AM) (10/10/19 1:15 AM) RDW-CV [12.0-15.0 %] 14.0 % 13.7 % (10/11/19 1:07 AM) (10/10/19 1:15 AM) RDW-SD [36.0-48.0 fL] 47.8 fL 48.0 fL (10/11/19 1:07 AM) (10/10/19 1:15 AM) PLT [145-450 x10^3/uL] 113 x10^3/uL 1 160 x10^3/uL *LOW* (10/10/19 1:15 AM) (10/11/19 1:07 AM) Neutrophils [37.0-80.0 %] 70.1 % 83.1 % (10/11/19 1:07 AM) *HI* (10/10/19 1:15 AM) Lymphocytes [17.0-45.0 %] 15.6 % 7.0 % *LOW* *LOW* (10/11/19 1:07 AM) (10/10/19 1:15 AM) Monocytes [3.0-14.0 %] 12.2 % 9.1 % (10/11/19 1:07 AM) (10/10/19 1:15 AM) Eosinophil [0.0-5.0 %] 1.5 % 0.1 % (10/11/19 1:07 AM) (10/10/19 1:15 AM) Basophil [0.0-2.0 %] 0.2 % 0.2 % (10/11/19 1:07 AM) (10/10/19 1:15 AM) Neut Absolute [1.60-7.70 x10^3/uL] 5.78 x10^3/uL 12.63 x10^3/uL (10/11/19 1:07 AM) *HI* (10/10/19 1:15 AM) Lymph Absolute [1.00-4.00 x10^3/uL] 1.29 x10^3/uL 1.07 x10^3/uL (10/11/19 1:07 AM) (10/10/19 1:15 AM) [place] Absolute [0.10-1.40 x10^3/uL] 1.01 x10^3/uL 1.38 x10^3/uL (10/11/19 1:07 AM) (10/10/19 1:15 AM) Eos Absolute [0.00-0.40 x10^3/uL] .12 x10^3/uL .01 x1 0^3/uL (10/11/19 1:07 AM) (10/10/19 1:15 AM) Baso Absolute [0.00-0.30 x10^3/uL] .02 x10^3/uL .03 x 10^3/uL (10/11/19 1:07 AM) (10/10/19 1:15 AM) Imm Gran Abs [0.00-0.10 x10^3/uL] .03 x10^3/uL .08 x1 0^3/uL (10/11/19 1:07 AM) (10/10/19 1:15 AM) Immature Gran [0.0-0.9 %] 0.4 % 0.5 % (10/11/19 1:07 AM) (10/10/19 1:15 AM) NRBC [<=0.0 %] 0.0 % 0.0 % (10/11/19 1:07 AM) (10/10/19 1:15 AM) 1Result Comment: Result checked.COAGULATION Most recent to oldest [Reference Range]: 1 2 PT [11.5-15.0 second(s)] 13.2 second(s) (10/09/19 2:20 PM) INR 1.0 *NA* (10/09/19 2:20 PM) CHEMISTRY Most recent to oldest [Reference Range]: 1 2 Glucose Random [74-106 mg/dL] 174 mg/dL *HI* (10/10/19 1:15 AM) BUN [6-20 mg/dL] 19 mg/dL (10/10/19 1:15 AM) Creatinine [0.9-1.3 mg/dL] 0.7 mg/dL *LOW* (10/10/19 1:15 AM) Sodium Level [136-145 mmol/L] 137 mmol/L (10/10/19 1:15 AM) Potassium Level [3.6-5.1 mmol/L] 3.9 mmol/L (10/10/19 1:15 AM) Chloride Level [101-111 mmol/L] 106 mmol/L (10/10/19 1:15 AM) CO2 [22.0-32.0 mmol/L] 25.0 mmol/L (10/10/19 1:15 AM) Calcium Level [8.5-10.1 mg/dL] 8.1 mg/dL *LOW* (10/10/19 1:15 AM) Estimated GFR [>=59 mL/min/1.73m2] >60 mL/min/1.73m2 1 (10/10/19 1:15 AM) 1Result Comment: The equation has not been validated in patients older than 70. However a Modification of Diet in Renal Disease - derived estimated GFR may still be a useful tool for providers caring for patients older than 70.POC Testing Results Most recent to oldest [Reference Range]: 1 2 Bedside Glucose [70-110 mg/dL] 105 mg/dL 1 (10/09/19 1:29 PM) 1Result Comment: Test performed at [facility], [facility], [facility] [place] [place], [address] Fabricio Veliz RRadiology Reports Exam Date Time Procedure Performing Provider Status 10/09/19 5:35 PM XR Pelvis 1 or 2 Views Annita Hernandez RT; Auth (Verified) Notes:(XR Pelvis 1 or 2 Views) Reason For Exam: ABNORMALITY/LT THAReport DATE: 10/09/2019 EXAMINATION: XR PELVIS 1 OR 2 VIEWS A portable flat plate AP view of the lt hip obtained intraoperatively for the surgeon???s use duringperformance of orthopedic procedure in the O.R. Electronically Signed S: CSJ-Radiologist , Not [id number]/12/2019 14:03 Vital Signs Most recent to oldest 1 2 3 [Reference Range]: Temperature Oral 97.3 DegF 96.1 DegF 97.3 DegF (DegF) [95.9-98.6 (10/12/19 8:02 AM) (10/12/19 5:00 AM) (10/11/19 1 0:00 PM) DegF] Temperature Oral 36.9 DegC 36.7 DegC 37.8 DegC (DegC) [35.8-37.3 (10/11/19 5:10 PM) (10/11/19 1:55 PM) *HI* DegC] (10/11/19 5:00 AM ) Temperature Tympanic 97.8 DegF (DegF) [97.4-100 DegF] (10/09/19 9:31 PM) Temperature Temporal 97.9 DegF Artery (DegF) (10/09/19 1:20 PM) [97.6-100.3 DegF] Respiratory Rate 18 br/min 18 br/min 18 br/min [14-20 br/min] (10/12/19 11:06 AM) (10/12/19 11:06 AM) (10/12/19 1 0:57 AM) Oxygen Saturation 97 % 96 % 99 % [90-100 %] (10/12/19 8:02 AM) (10/12/19 5:00 AM) (10/11/19 10: 00 PM) Oxygen Therapy Room air Room air Room air (10/12/19 8:02 AM) (10/12/19 5:00 AM) (10/11/19 10: 00 PM) Oxygen Flow Rate 2 L/min (10/10/19 1:30 AM) Peripheral Pulse Rate 73 bpm 76 bpm 70 bpm [60-100 bpm] (10/12/19 8:02 AM) (10/12/19 5:00 AM) (10/11/19 10: 00 PM) Heart Rate Monitored 70 bpm 93 bpm 76 bpm [60-100 bpm] (10/11/19 8:35 AM) (10/11/19 5:00 AM) (10/11/19 1:0 8 AM) Blood Pressure 121/59 mmHg 125/59 mmHg 131/63 mmHg [90-140/60-90 mmHg] (10/12/19 8:02 AM) (10/12/19 5:00 AM) (10/11/19 10:00 PM) Mean Arterial Pressure 81 mmHg 85.7 mmHg 81.3 mmHg [70-100 mmHg] (10/12/19 5:00 AM) (10/11/19 10:00 PM) (10/11/19 5: 10 PM) Blood Pressure Right arm Right arm Right arm Location (10/12/19 8:02 AM) (10/11/19 10:00 PM) (10/11/19 5: 10 PM) Blood Pressure Method Electronic non-invasive Electronic non-inv asive Electronic non-invasive (10/12/19 8:02 AM) (10/11/19 10:00 PM) (10/11/19 5: 10 PM) Blood Pressure Supine 150/70 mmHg 124/60 mmHg [90-140/60-90 mmHg] *HI* (10/10/19 12:34 PM) (10/10/19 5:23 PM) Pulse Supine 83 bpm (10/10/19 12:34 PM) Blood Pressure Sitting 132/62 mmHg 121/56 mmHg [70-140/50-90 mmHg] (10/10/19 5:23 PM) (10/10/19 12:34 PM) Pulse Sitting 84 bpm (10/10/19 12:34 PM) Blood Pressure 127/65 mmHg 113/56 mmHg Standing [70-140/50-90 (10/10/19 5:23 PM) (10/10/19 12:34 PM) mmHg] Pulse Standing 96 bpm (10/10/19 12:34 PM) Body Mass Index 24.69 kg/m2 24.78 kg/m2 (10/09/19 9:31 PM) (10/09/19 1:20 PM) Measured Height in 71 in 71 in Inches (10/09/19 9:31 PM) (10/09/19 1:20 PM) Measured Weight in 177 lb Pounds (10/09/19 9:31 PM) Clinical Weight (kg) 80.286 kg 80.6 kg (10/09/19 9:31 PM) (10/09/19 1:20 PM) Social History Social History Type Response Smoking Status Never Smoker Sex Hospital Discharge Instructions Follow Up Care09/19/2019 15:37:54With:Johnathan Shepard MD, ORTHOPEDICS Address: [address] [address]- Business (1) When:10 - 14 days only if neededWith:OUT OF AREA PHYSICIAN Address:Unknown When:Unknown
--- OUTSIDE RECORDS SUMMARY | 2022-07-07 12:05 | XMS_ITS | Continuity of Care Document ---
:1945 Author Organization [facility] Address [address] [place] [address]- Care Team Providers Name Role Phone PHYSICIAN, OUT OF AREA Primary Care Physician Unavailable Encounter [facility] [id number] Date(s): 10/13/19 - 10/13/[address] [address]- [phone] Encounter Diagnosis Encounter for medical screening examination (Discharge Diagnosis) - 10/13/19 Hip pain (Discharge Diagnosis) - 10/13/19 Discharge Disposition: Home Attending Physician: Lee Ann Rahman MD Problem List Condition Effective Dates Status Health Status Informant Hip osteoarthritis(Confirmed) Active Osteoarthritis of left hip(Confirmed) Active Allergies, Adverse Reactions, Alerts No Known Allergies Medications aspirin 81 mg oral delayed release tablet 81 mg, = 1 tab(s) each dose, PO (oral), bidMeals, Qty: 60 tab(s), Refill #: 0, Pharmacy: [id number], 1 tab(s) PO (oral) bidMeals,x30 day(s) Start Date: 10/10/19 Stop Date: 11/09/19 Status: Orderedatorvastatin 80 mg oral tablet 80 mg, = 1 tab(s) each dose, PO (oral), qAM, Refill #: 0 Start Date: 09/20/19 Status: Ordereddocusate sodium 100 mg oral capsule 100 mg, = 1 capsules each dose, PO (oral), bid, Qty: 60 capsules, Refill #: 0, Pharmacy: [id number], 1 capsules PO (oral) bid,x30 day(s) Start Date: 10/10/19 Stop Date: 11/09/19 Status: Orderedindomethacin 25 mg oral capsule 25 mg, = 1 capsules each dose, PO (oral), bidMeals, Qty: 24 capsules, Refill #: 0, [id number], 1 capsules PO (oral) bidMeals,x12 day(s) [...] OF MAGNES[place] - OVER THE COUNTER, Pharmacy: [id number], 10 mL PO (oral) qDay,x30 day(s),PRN:Constipation,Instr:MILK [...] status post left total hip replacement, Pharmacy: [id number], 1 tab(s) PO (oral) q4h,x7 day(s),PRN:Pain,Instr:status [...] Print Requisition Start Date: 10/10/19 Status: Ordered Assessment and Plan Referrals to Other Providers, Order placed by [employer]. Referred by: SYSTEM Vital Signs Most recent to oldest [Reference Range]: 1 2 Temperature Tympanic (DegF) [97.4-100 96.7 DegF DegF] *LOW* (10/13/19 10:54 AM) Respiratory Rate [14-20 br/min] 18 br/min (10/13/19 10:54 AM) Oxygen Saturation [90-100 %] 97 % (10/13/19 10:54 AM) Heart Rate Monitored [60-100 bpm] 97 bpm (10/13/19 10:54 AM) Blood Pressure [90-140/60-90 mmHg] 159/74 mmHg *HI* (10/13/19 10:54 AM) Mean Arterial Pressure [70-100 mmHg] 102.3 mmHg *HI* (10/13/19 10:54 AM) Blood Pressure Location Left arm (10/13/19 10:54 AM) Blood Pressure Method Electronic non-invasive (10/13/19 10:54 AM) Body Mass Index 24.41 kg/m2 24.41 kg/m2 (10/13/19 11:39 AM) (10/13/19 10:54 AM) Measured Height in Inches 71 in 71 in (10/13/19 11:39 AM) (10/13/19 10:54 AM) Measured Weight in Pounds 175 lb 175 lb (10/13/19 11:39 AM) (10/13/19 10:54 AM) Clinical Weight (kg) 79.379 kg 79.379 kg (10/13/19 11:39 AM) (10/13/19 10:54 AM) Social History Social History Type Response Smoking Status Never Smoker Sex Hospital Discharge Instructions Follow Up Care10/13/2019 10:44:59With:Johnathan Shepard MD, ORTHOPEDICS Address: [address] [place] [id number]- Define My Style (1) When:Today only if neededWith:Return to Emergency Department Address:Unknown When:Unknown Comments:If symptoms worsen, any other concernsWith:OUT OF AREA PHYSICIAN Address:Unknown When:Unknown Reason for Referral , Order placed by [employer]. Referred by: SYSTEM
--- OUTSIDE RECORDS SUMMARY | 2022-07-07 12:05 | XMS_ITS | Continuity of Care Document ---
:1945 Author Organization [facility] Address [address] [place] [address]- Care Team Providers Name Role Phone PHYSICIAN, OUT OF AREA Primary Care Physician Unavailable Encounter [facility] [id number] Date(s): 10/20/19 - 11/11/[address] [address]- [phone] Attending Physician: Johnathan Shepard MD Referring Physician: Johnathan Shepard MD Problem List Condition Effective Dates Status Health Status Informant Hip osteoarthritis(Confirmed) Active Osteoarthritis of left hip(Confirmed) Active Allergies, Adverse Reactions, Alerts No Known Allergies Medications aspirin 81 mg oral delayed release tablet 81 mg, = 1 tab(s) each dose, PO (oral), bidMeals, Qty: 60 tab(s), Refill #: 0, Pharmacy: [facility] #[id number], 1 tab(s) PO (oral) bidMeals,x30 day(s) Start Date: 10/10/19 Stop Date: 11/09/19 Status: Orderedatorvastatin 80 mg oral tablet 80 mg, = 1 tab(s) each dose, PO (oral), qAM, Refill #: 0 Start Date: 09/20/19 Status: Ordereddocusate sodium 100 mg oral capsule 100 mg, = 1 capsules each dose, PO (oral), bid, Qty: 60 capsules, Refill #: 0, Pharmacy: [id number], 1 capsules PO (oral) bid,x30 day(s) Start Date: 10/10/19 Stop Date: 11/09/19 Status: Orderedindomethacin 25 mg oral capsule 25 mg, = 1 capsules each dose, PO (oral), bidMeals, Qty: 24 capsules, Refill #: 0, Pharmacy: [id number], 1 capsules PO (oral) bidMeals,x12 day(s) [...] Print Requisition Start Date: 10/10/19 Status: Ordered Social History Social History Type Response Smoking Status Never Smoker Sex
--- OUTSIDE RECORDS SUMMARY | 2022-07-07 12:05 | XMS_ITS | Clinical Summary ---
:1945 Author Organization [facility] [facility] [place] [address] Care Team Providers Name Role Phone Jewel Kapoor Primary Care Provider [phone] Allergies No known active allergies Medications Medication Sig Dispensed Refills Start Date End Date Status atorvastatin Take 80 mg by mouth 0 07/28/2020 Active (LIPITOR) 80 mg every morning. tablet losartan (COZAAR) Take 50 mg by mouth 0 07/28/2020 Active 50 mg tablet once daily. nitroglycerin Place 0.4 mg under 0 Active (NITROSTAT) 0.4 mg the tongue every 5 sublingual tablet minutes if needed for Chest Pain. acetaminophen Take 1,000 mg by 0 Active (TYLENOL EXTRA mouth 3 times daily STRGTH) 500 mg if needed for Pain. tablet Max acetaminophen dose: 4000mg in 24 hrs. metoprolol Take 50 mg by mouth 0 Active succinate (TOPROL once daily. XL) 50 mg sustained-release tablet aspirin (ECOTRIN) Take 1 Tablet (81 60 Tablet 0 05/12/2022 Active 81 mg enteric mg) by mouth two coated times daily with tabletIndications: meals. S/P total right hip arthroplasty ibuprofen (ADVIL; Take 1 Tablet (400 0 05/13/2022 MOTRIN) 400 mg mg) by mouth four tabletIndications: times daily with S/P total right hip meals and at arthroplasty bedtime. oxyCODONE Take 1 Tablet (5 30 Tablet 0 05/13/2022 06/12/2022 E xpired (ROXICODONE) 5 mg mg) by mouth every immediate release 4 hours if needed tabletIndications: for Pain. S/P total right hip arthroplasty Active Problems Problem Noted Date S/P total right hip arthroplasty 04/23/2022 Coronary artery disease Hyperlipidemia Hypertension Peripheral neuropathy Elevated prostate specific antigen (PSA) Encounters Date Type Specialty Care Team Description 06/11/2022 Telephone Richard Hammonds, 30 Day Foll ow Up 05/14/2022 Telephone Ericka Rizvi, [place] [facility] F/U (ANALIA) RN 05/11/2022 Surgery Richard Hammonds, RIGHT ARTHR OPLASTY HIP 05/11/2022 Anesthesia Event Ervin Vickers, FARM MANAGEMENT TEACHER 05/11/2022 - Hospital Encounter Richard Hammonds, S/P t otal right hip 05/13/2022 arthroplasty (P rimary Dx) Discharge Summary - Alexei Cuadra MD - 05/13/2022 8:55 AM CDT HOSPITAL DISCHARGE SUMMARY Patient Name: Dane vazquez Date of : 1945 Ag e: 76 y.o. [address] Primary Physician: MIKY Michel Admission Date: 05/11/2022 Discharge Date: 05/13/2022 He will be discharged from [facility] to home PRINCIPAL DISCHARGE DIAGNOSI S: S/P total right hip arthroplasty Principal Problem: S/P total right hip arthrop lasty Active Problems: Coronary artery disease Hyperlipidemia Hypertension Peripheral neuropathy Elevated prostate specific antigen (PSA) BRIEF HOSPITAL COURSE: 76 y. o. year old male admitted for elective right hip arthroplasty performed by Dr. Hammonds under local spinal anesthesia without postoperative complications. Overnight, he report ed moderate pain control. Pt n was was able to ambulate well with therapy and given full independence, stable to be discharged home on post op day 2. When seen at the bedside, patient denies headaches, n ausea, vomiting, chest pain, palpitations, dysuria, or urinary retention. Hypotension was noted, but he is asymptomatic. Review of blood work showed no need for blood transfusion. Discharge medications were reviewed and reconciled . Appointment was made for him to see Dr. Hammonds for wound check and staple removal. Prescription for tramadol was provided. PROCEDURES PERFORMED DURING HOSPITALIZATION: PERTINENT FINDINGS/RESULTS A T DISCHARGE: BP 104/57 (Cuff Size: Adult Regular) Pulse 72 Temp 97.9 ??F (36.6 ??C) Resp 16 Ht 1.803 m (5' 11) Wt 80.9 kg (178 lb 6.4 oz) SpO2 99% BMI 24.88 kg/m?? Patient Vitals for the past 72 hrs: Weight 05/13/22 0000 80.9 kg (178 l b 6.4 oz) 05/11/22 1024 80.7 kg (178 l b) Latest Laboratory Results: Chem: Recent Labs 05/11/22 1107 SODIUM 139 POTASSIUM 4.2 CREATININE 0.86 WBC/Hgb: Recent Labs 05/13/22 0652 05/12/22 0620 HGB 10.5 L 11.4 L INR: No results for input(s): INR in the last 720 hours. IMPORTANT PENDING TEST RESUL TS: Lab results that may not be resulted at time of discharge: (From admission through now) None CONDITION AT DISCHARGE: Impr oving DISCHARGE ORDERS Your Home Medicines START taking these medicines Instructions traMADoL 50 mg tablet For diagnoses: S/P total rig ht hip arthroplasty Commonly known as: ULTRAM Take 1 Tablet (50 mg) by mo ut every 4 hours if needed for Pain. CHANGE how you take these me dicines Instructions aspirin 81 mg enteric coated tablet For diagnoses: S/P total rig ht hip arthroplasty What changed: when to take t his Commonly known as: ECOTRIN Notes to patient: Please sto p taking this medication after your last dose on 06/12/22 Take 1 Tablet (81 mg) by mo uth two times daily with meals. CONTINUE taking these medici tiny Instructions acetaminophen 500 mg tablet Commonly known as: TYLENOL E XTRA STRGTH Take 1,000 mg by mouth 3 ti mes daily if needed for Pain. Max acetaminophen dose: 4000mg in 24 hrs. atorvastatin 80 mg tablet Commonly known as: LIPITOR Take 80 mg by mouth every m orning. losartan 50 mg tablet Commonly known as: COZAAR Take 50 mg by mouth once da jose. metoprolol succinate 50 mg s ustained-release tablet Commonly known as: TOPROL XL Take 50 mg by mouth once da jose. nitroglycerin 0.4 mg subling ual tablet Commonly known as: NITROSTAT Place 0.4 mg under the tong ue every 5 minutes if needed for Chest Pain. Where to get your medicines These medications were sent to [facility] [id number] [facility] [address] [place] [address] [address] [facility] [address] ?? aspirin 81 mg enteric coa savanna tablet ?? traMADoL 50 mg tablet After Discharge Orders and I nstructions Discharge activity / precau tions posterior hip: - Activity and weight beari ng as tolerated. - Use abduction pillow betwe en your legs when sleeping until your follow up appointment with your doctor. - Do not twist your affected leg inward. - When lying on your back, k eep knee of the affected leg pointed straight up or slightly outward. -Do not bend your hip more t quinonez a 90 degree angle. Follow up appointment(s): Follow up with Keila Fernando at the [facility] in 10-14 days. When to follow up: -14 da ys Regular Diet Eat a wide variety of foods , including fruits and vegetable, dairy, grains and meats.Limit the amount of solid fat such as butter, margarine and shortening. Get most of your fat sources from fish, nuts and vegetable oils. Treatment Option: Full Resu scitation When should you be concerne d? When to Call Your Health Ca re Provider: Call your health care provid er if you have: - any change in movement, dickey ch as new weakness or inability to move your arms or legs as usual - any change in sensation, s uch as new numbness or tingling - difficulty breathing - extreme fatigue (cannot ge t out of bed) - dizziness or lightheadedne ss that will not stop - chest pain - new confusion - hives (itchy raised rash) - nausea (upset stomach)and vomiting that will not stop - problems at your incision site: redness, tenderness, drainage, or signs of infection (pain, swelling, redness, unpleasant odor, warmth, or green or yellow discharge) - not had a bowel movement i n three days - a severe headache - eye problems - severe pain that is not re lieved by medicine, rest or ice - a temperature greater than 101.6 degrees Fahrenheit - a burning feeling when uri nating - urgency to urinate - any change or loss in naomi l or bladder control. - In an emergency, call 911 or go to an Emergency Department at a nearby hospital. Why [facility] were at the [facility] You were in the hospital fo r a total hip arthroplasty Wound care - yao or sut ures: - Apply ice at 30 minute in tervals as needed. - Your incision has: YAO ; do not take a tub bath until your doctor says you may do so. - You may shower with aquace l dressing in place. - Do not scrub your incision . - Remove Aquacel dressing 7 days after application. Then, change island dressing daily. - Keep island dressing dry. FOLLOW-UP: He should see MIKY Parson in 1-2 weeks. Specialty follow-up: He should see Richard Hammonds MD as scheduled. Total time spent for dischar ge on date of discharge: 35 minutes I saw the patient on the nayla e of discharge Annamaria Cuadra MD 05/11/2022 Travel from Last 3 Months Immunizations Name Administration Dates Next Due COVID-19 vaccine (Moderna 12/16/2021, 11/19/2020, 10/19/2020 100mcg/0.5mL) HERMES RUIZ Hepatitis A (Adult) 06/19/2013, 05/11/2007, 04/19/2006 Hepatitis B (Adult) 06/19/2013, 06/13/2012, 05/05/2012 Hepatitis B (Peds) 06/19/2013 Hepatitis B, Unspecified 06/13/2012, 05/05/2012 Inactivated Polio Vaccine 04/19/2006 Influenza Virus, Unspecified 06/27/2016, 08/05/2013 Influenza, High-dose Inactivated 06/16/2019, 05/30/2018, , 06/17/2016, 07/02/2014, 08/05/2013 Influenza, High-dose Quadrivalent 06/18/2021, 06/14/2020 Inactivated Influenza, IIV3 (Age 6-35 mos) 06/13/2015, 07/06/2012, 06/30, 06/10/2009 Influenza, IIV3 (Age >=3 years) 09/11/2011, 07/29/2007 Pneumococcal Poly,23-Valent 04/16/2020, 04/01/2017 (Deferred : (Pneumovax) Patient Refused) Pneumococcal conj 13-Valent (Prevnar 03/19/2016 13) TD, UNSPECIFIED 04/13/2006 Td (Age >=7 Years) 06/19/2013 (Deferred: Patient Refused), 04/13/2006 Tdap 03/19/2016, 04/19/2006 Typhoid (injectable) 04/25/2012 Zoster (Shingrix-RZV, recombinant) 04/28/2022 Zoster (Zostavax-ZVL, live) 10/05/2009, 09/13/2008 Zoster, Unspecified Formulation 06/24/2021 (Deferred: Patien t Refused) Social History Tobacco Use Types Packs/Day Years Used Date Never Smoker Smokeless Tobacco: Never Used Tobacco Cessation: Counseling Given: Yes Alcohol Use Standard Drinks/Week Comments Yes 0 (1 standard drink = 0.6 oz pure alcoho l) 5 cans of beer/week Alcohol Habits Answer Date Recorded How often do you have a drink containing alcohol? Not asked How many drinks containing alcohol do you have on a Not aske d typical day when you are drinking? How often do you have six or more drinks on one Not asked occasion? Comment: 5 cans of beer/week 05/11/2022 Sex Assigned at Date Recorded Not on file Obstetrics History Last Filed Vital Signs Vital Sign Reading Time Taken Comments Blood Pressure 104/57 05/13/2022 7:20 AM CDT Pulse 72 05/13/2022 7:20 AM CDT Temperature 36.6 ??C (97.9 ??F) 05/13/2022 7:20 AM CDT Respiratory Rate 16 05/13/2022 7:20 AM CDT Oxygen Saturation 99% 05/13/2022 7:20 AM CDT Inhaled Oxygen Concentration - - Weight 80.9 kg (178 lb 6.4 oz) 05/13/2022 12:00 AM CDT Height 180.3 cm (5' 11) 05/11/2022 10:24 AM CDT Body Mass Index 24.88 05/11/2022 10:24 AM CDT Plan of Treatment Upcoming Encounters Date Type Specialty Care Team Description 07/07/2022 Orders Only Betty Navarro Health Maintenance Due Date Last Done Comments Depression screening for age 12+ 1957 BMI (ht and wt on same day) for 1963 age 18+ Hepatitis C screening for age 1209/03/1963 18-79 Medicare Wellness for age 65+ 2010 COVID-19 vaccine series (5 - 02/10/2022 12/16/2021, 021, Booster for Moderna series) 11/19/2020, Addition al history exists Influenza for age 65+ 05/14/2022 06/18/2021, 06/14/2020, 06/16/2019, Additional history exists Zoster (shingles) series for age 1006/23/2022 04/28/2022, , 50+ (3 of 3) 09/13/2008 Tetanus booster 03/19/2026 03/19/2016, 04/19/2006, 04/13/2006, Additional history exists Tdap Completed 03/19/2016, 04/19/2006 Pneumococcal series for age 65+ Completed 04/16/2020, 03/2016 Medical Devices Implanted Type Area Machine Group Leader Device Shelf Model / Identifier Expiration Serial / Lot Date [employer] Delta Ceramic V40 Femoral Head Right: [place] 02/25/2026 [id number] / Implanted: Qty: 1 on 05/11/2022 by Richard Hammonds MD at [facility] / [id number] Procedures Procedure Name Priority Date/Time Associated Diagnosis Comme nts HEMOGLOBIN Early AM 05/13/2022 6:52 Results for this AM CDT procedure are i n the results section. HEMOGLOBIN Early AM 05/12/2022 6:20 Results for this AM CDT procedure are i n the results section. XR HIP 1 VIEW W TORIN 05/11/2022 1:24 Results f or this PELVIS RIGHT PM CDT procedure are i n PORTABLE the results section. 1 VIEW PORTABLE Routine 05/11/2022 1:02 Results f or this PELVIS IN OR PM CDT procedure are i n the results section. SPINAL BLOCK Routine 05/11/2022 12:11 Results for this PM CDT procedure are i n the results section. ARTHROPLASTY HIP Elective 05/11/2022 11:38 primary osteoarthrit is AM CDT right hip Case Notes INPT AT 0945AM(ESTRELLA) Special Needs H&P 04/28/2022 DR KAPOOR - [facility] BASIC METABOLIC PANEL STAT 05/11/2022 11:07 AM CDT Results for this procedure are in the resu lts section. COVID 19 PREETHI Preop 05/11/2022 9:56 AM CDT Resul ts for this procedure are in the resu lts section. SCAN-CARDIAC STRIP 05/11/2022 12:13 AM CDT Results for this procedure are in the resu lts section. SCAN CORRESP-LABORATORY 05/06/2022 5:35 PM CDT Results for this procedure RESULTS are in the resu lts section. SCAN CORRESP-EKG RESULTS 05/06/2022 12:53 PM CDT Results for this procedure are in the resu lts section. from Last 3 Months Results (ABNORMAL) Hemoglobin (05/13/2022 6:52 AM CDT)Only the most recent of2 results within the time period is included. athologist Signature HEMOGLOBIN 10.5 (L) 13.5 - 05/13/2022 [facility] 17.5 g/dL 7:30 AM CDT [facility] MCV 92 80 - 100 05/13/2022 [facility] fL 7:30 AM CDT [facility] Specimen Anatomical Collection Method / Collection Time Recei sunil Time (Source) Location / Volume Laterality Blood BLOOD SPECIMEN / Venipuncture / 05/13/2022 6:52 2021 7:14 Unknown Unknown AM CDT AM CDT Richard Hammonds MD HEMATOLOGY Performing Organization Address City/State/ZIP Code Phon e Number [facility] [address] [place] [address] XR HIP 1 VIEW W PELVIS RIGHT PORTABLE (05/11/2022 1:24 PM CDT) Anatomical Region Laterality Modality HIPS, HIPL, Pelvis Digital Radiography Specimen (Source) Anatomical Collection Method Collection Time Re ceived Time Location / / Volume Laterality 05/11/2022 10:38 PM CDT Narrative 05/11/2022 10:38 PM CDT For Patients: ??As a result of the Century Cures Act, medical imaging exams and procedure reports are released immediately into your electronic medical record. ??You may view this report before you r referring provider. ??If you have ques tions, please contact your health care provider. Indication: Postop total hip arthroplasty, right. Technique: Pelvis one view. Right hip one view. Comparison: Pelvis radiograph same day. Findings: Right hip arthroplasty appears appropria tely positioned. Soft tissue gas and skin yao about the right hip consistent with recent surgery. Left hip arthroplasty shows no evidence of complication. The re is mild heterotopic ossification late ral to the left greater trochanter. Osseous structures elsewhere as imaged are unchanged. Impression: Expected changes status post right hip a rthroplasty. Dictated by Guanaco Navarro MD @ 05/11/2022 10:38:48 PM (Electronically Signed) Procedure Note Guanaco Navarro, DO - 05/11/2022For matting of this note might be different from the original. For Patients: As a result of the Cures Act, medical imaging exams and procedure reports are released immediately into your electronic medical record. You may view this report before your referring provider. If you have questions, please contact [facility] health care provider. Indication: Postop total hip arthroplasty, right. Technique: Pelvis one view. Right hip one view. Comparison: Pelvis radiograph same day. Findings: Right hip arthroplasty appears appropria tely positioned. Soft tissue gas and skin yao about the right hip consistent with recent surgery. Left hip arthroplasty shows no evidence of complication. There is mild heterotopic ossification lateral to the left greater trochanter. Osseous structures elsewhere as imaged are unchanged. Impression: Expected changes status post right hip a rthroplasty. Dictated by Guanaco Navarro MD @ 05/11/2022 10:38:48 PM (Electronically Signed) Richard Hammonds MD GENERAL IMAGING 1 VIEW PORTABLE PELVIS IN OR (05/11/2022 1:02 PM CDT) Anatomical Region Laterality Modality Digital Radiography Specimen (Source) Anatomical Collection Method Collection Time Re ceived Time Location / / Volume Laterality 05/11/2022 10:37 PM CDT Narrative 05/11/2022 10:37 PM CDT For Patients: ??As a result of the Cures Act, medical imaging exams and procedure reports are released immediately into your electronic medical record. ??You may view this report before you r referring provider. ??If you have ques tions, please contact your health care provider. Indication: Intraoperative total hip arthroplasty, r ight. Technique: Pelvis one-view. Comparison: None available. Findings: Right hip arthroplasty hardware appears appropriately positioned. Soft tissue gas about the right hip consistent with recent surgery. Left hip arthroplasty as imaged shows no evidence of complication. O sseous structures elsewhere as imaged ar e unremarkable. Impression: Intraoperative pelvis for right hip arth roplasty planning. Dictated by Guanaco Navarro MD @ 05/11/2022 10:37:23 PM (Electronically Signed) Procedure Note Guanaco Navarro, - 05/11/2022For matting of this note might be different from the original. For Patients: As a result of the ntury Cures Act, medical imaging exams and procedure reports are released immediately into your electronic medical record. You may view this report before your referring provider. If you have questions, please contact [facility] care provider. Indication: Intraoperative total hip arthroplasty, r ight. Technique: Pelvis one-view. Comparison: None available. Findings: Right hip arthroplasty hardware appears appropriately positioned. Soft tissue gas about the right hip consistent with recent surgery. Left hip arthroplasty as imaged shows no evidence of complication. Osseous structures elsewhere as imaged are unrem arkable. Impression: Intraoperative pelvis for right hip arth roplasty planning. Dictated by Guanaco Navarro MD @ 05/11/2022 10:37:23 PM (Electronically Signed) Richard Hammonds MD GENERAL IMAGING Spinal Block (05/11/2022 12:11 PM CDT) Narrative Ervin Vickers CRNA - 05/11/2022 1 :09 PM CDT Ervin Vickers CRNA ? 05/11/2022 12:11 PM Spinal Block Patient location during procedure: OR Reason for block: primary anesthetic PreProcedure Checklist Completed: patient identified, risks and benefits discussed, timeout performed, hand hygiene performed, chlor aprep used and completely dried prior to procedure, IV checked, site mar keakanksha, surgical consent and hand hygiene performed Spinal Block Patient position: sitting Prep: chloraprep and sterile drape Patient monitoring: continuous pulse oxi metry, ECG and blood pressure Approach: midline Skin Infiltration: lidocaine 1% Location: L4-5 Needle Needle type: pencil-point Needle gauge: 24 G Needle length: 4 in Assessment Sensory level: T8 Events: no complications. Electronically signed by Sonali Vickers FARM MANAGEMENT TEACHER ? Ervin Vickers FARM MANAGEMENT TEACHER ANESTHESIA PX NOTE ORDERABLE S (ABNORMAL) BASIC METABOLIC PANEL (05/11/2022 11:07 AM CDT) P athologist Signature SODIUM 139 137 - 145 05/11/2022 [facility] mmol/L 11:37 AM CDT [facility] POTASSIUM 4.2 3.5 - 5.1 05/11/2022 [facility] mmol/L 11:37 AM CDT [facility] CHLORIDE 104 98 - 107 05/11/2022 [facility] mmol/L 11:37 AM CDT [facility] CO2,TOTAL 29 22 - 30 05/11/2022 [facility] mmol/L 11:37 AM CDT [facility] GLUCOSE 111 (H) 65 - 100 05/11/2022 [facility] mg/dL 11:37 AM CDT [facility] CALCIUM 9.3 8.4 - 10.2 05/11/2022 [facility] mg/dL 11:37 AM CDT [facility] BUN 18 9 - 20 05/11/2022 [facility] mg/dL 11:37 AM CDT [facility] CREATININE 0.86 0.66 - 1.25 05/11/2022 [facility] mg/dL 11:37 AM CDT [facility] eGFR 90 (L) >90 05/11/2022 [facility] mL/min/1.73 11:37 AM CDT [facility] Comment: As of 2021, eGFR is calcu lated by the CKD-EPI creatinine equation without race adjustment. eGFR can be inf luenced by muscle mass, exercise, and diet. The reported eGFR is an estimation only and is only applicable if the renal function is stable. ANION GAP PREETHI 11.0 05/11/2022 11:37 AM CDT [facility] BUN/CREAT RATIO PREETHI 21.0 05/11/2022 11:37 AM CDT [facility] Comment: NORMAL REFERENCE RANGE: 10-20 Specimen Anatomical Collection Method / Collection Time Recei sunil Time (Source) Location / Volume Laterality Blood BLOOD SPECIMEN / Venipuncture / 05/11/2022 11:07 05/11 Unknown Unknown AM CDT 11:16 AM CDT Richard Hammonds MD CHEMISTRY Performing Organization Address City/[facility]/ZIP Code [facility] rafiq [facility] [address] [place] [address] COVID 19 PREETHI (05/11/2022 9:56 AM CDT) athologist Signature COVID 19 Negative Negative 05/11/2022 [facility] 10:16 AM CDT [facility] Specimen Anatomical Collection Method Collection Time Receive d Time (Source) Location / / Volume Laterality Swab SPECIMEN FROM Non-Blood / 05/11/2022 9:56 AM 05/11/20 22 [facility] FOSSAE / Unknown CDT 10:02 AM CDT Unknown [facility] - 05/11 10:16 AM CDT This test has been cleared by the Food a nd Drug Administration under an Emergency use Agreement. Negative results do not precl ude 2019-nCoV infection and should not be used as the sole basis for treatment or other patient management decisions. Negative results must be combined with clinical o bservations, patient history and epidemiological information. Richard Hammonds MD MICROBIOLOGY Performing Organization Address City/State/ZIP Code Phon rafiq [facility] [address] [place] [address] SCAN-CARDIAC STRIP (05/11/2022 12:13 AM CDT) Narrative 05/11/2022 12:13 AM CDT This result has an attachment that is no t available. Ordered by an unspecified provider. Other Clinical Staff OTHER SCAN CORRESP-LABORATORY RESULTS (05/06/2022 5:35 PM CDT) Narrative 05/06/2022 5:35 PM CDT This result has an attachment that is no t available. Ordered by an unspecified provider. Other Clinical Staff OTHER SCAN CORRESP-EKG RESULTS (05/06/2022 12:53 PM CDT) Narrative 05/06/2022 12:53 PM CDT This result has an attachment that is no t available. Ordered by an unspecified provider. Other Clinical Staff OTHER from Last 3 Months Insurance Payer Benefit Plan / Subscriber ID Effective Dates Phone Addre ss Type Group MEDICARE MEDICARE [id number] 2010-Prese [address] PROVIDER BASED PROVIDER BASED [place] [phone] BLUE CROSS MR BLUE CROSS [id number] 2016-Presen [address] [address] TELLER BLUE t [place], [place] MR PB ONLY [phone] BLUE CROSS MR MR BC TELLER [id number] 2016-Presen [address] [place] [address] Advance Directives Latest Code Status on File Code Status Date Activated Date Inactivated Comments Full Code 05/11/2022 1:34 PM 05/13/2022 2:16 PM Code Status Discussion: Unable to Assess Preferences, Provid er to review later Full Code 05/11/2022 10:17 AM 05/11/2022 1:33 PM Code Status Discussion: Not Discussed Care Teams Slubber Frame Changer Relationship Specialty Start Date End Date Jewel Kapoor MBBS PCP - General Family Practice 05/11/[address] [place] [address] [place] [phone]
--- OUTSIDE RECORDS SUMMARY | 2022-07-07 12:05 | XMS_ITS ---
:1945 Author Care Team Providers Name Role Phone JOHNATHAN SHEPARD MD Orthopedic Surgeon [phone] DAVID YADAV Primary Care Provider [phone] Allergies Code Code System Name Reaction Severity Status Onset NKDA ? Medications Name Status Start Date Stop Date ? ? alprazolam 0.5 mg tablet Completed ? 019 amoxicillin 500 mg capsule Completed ? 08/04 amoxicillin 500 mg tablet Active ? Not av ailable TAKE 4 TABLET(S) BY ORAL ROUTE 1 HOUR BEFORE ANY DENTAL APPT aspirin 81 mg tablet,delayed release Completed 10/10/2019 11/09/2019 Take 1 tablet po bid atorvastatin 80 mg tablet Active ? Not av ailable TAKE 1 TABLET BY MOUTH EVERY DAY baclofen 10 mg tablet Active ? Not availa ble cholecalciferol (vitamin D3) Completed ? Take 1 capsule po qd ciprofloxacin 500 mg tablet Completed ? 09/13 docusate sodium 100 mg capsule Completed 10/10/2019 0 11/09/2019 Take 1 tablet po bid indomethacin 25 mg capsule Completed 10/10/201910/22 Take 1 tablet po bid losartan 50 mg tablet Active ? Not availa ble TAKE 1 TABLET BY MOUTH EVERY DAY magnesium hydroxide 2,400 mg/10 mL oral Completed 10/10/19 20 11/09/2019 suspension metoprolol succinate ER 25 mg tablet,extended Active Not available release 24 hr metoprolol succinate ER 50 mg tablet,extended release 24 hr Acti ve ? Not available TAKE 1 TABLET BY MOUTH EVERY DAY nitroglycerin 0.4 mg sublingual tablet Active ? Not available Place 1 tablet by sublingual route as needed. oxycodone 5 mg tablet Completed ? 09/30/2021 Percocet 5 mg-325 mg tablet Completed 10/10/201912/2019 1 1 by oral route. Plavix 75 mg tablet Completed ? 10/06/2019 Take 1 tablet every day by oral route. prednisone 20 mg tablet Active ? Not avai lable tamsulosin 0.4 mg capsule Active ? Not av ailable Tylenol Extra Strength 500 mg tablet Active 09/20/2019 Not available Problems Name Status Onset Date Source ? Osteoarthritis of Left Hip Joint Active 08/04/2019 ? History of Total Replacement of Left Hip Joint Active 0 10/19/2019 ? Pain of Left Hip Joint Active 08/16/2021 ? Trochanteric Bursitis of Left Hip Active 08/16/2021 ? Osteoarthritis of Hip Active ? External Procedures Date Name Performed by ? ? Cataract Surgery Complex Information not available ? Popliteal Artery Stent Information not a vailable Notes: 2016 ? Arthroscopic Surgery Information not derek ilable Notes: 200408/03/2019 XR, Hip + Pelvis, Unilateral, 2 or 3 Inf ormation not available View 11/09/2019 XR, Hip + Pelvis, Unilateral, 2 or 3 [facility] - Ortho View [address] [place] [address] (Work Place) 08/14/2021 XR, Hip + Pelvis, Unilateral, 2 or 3 In- Office Order View Internal Use Only DO Not Attach Compendium DO Not Attach Compendium Do Not Delete/merge [id number] Results Lab Results None recorded. Past Encounters 12/04/2021 Trochanteric Bursitis of Left Hip; Histo ry of Total Replacement of Left Hip Joint; Osteoarthritis of Left Hip Joint Johnathan Shepard MD: [address], [place] [address], Ph. [phone] 09/30/2021 Trochanteric Bursitis of Left Hip; Histo ry of Total Replacement of Left Hip Joint; Osteoarthritis of Left Hip Joint Johnathan Shepard MD: [address], [place] [address], Ph. [phone] 08/14/2021 Trochanteric Bursitis of Left Hip; Histo ry of Total Replacement of Left Hip Joint; Osteoarthritis of Left Hip Joint; Pain of Left Hip Joint Johnathan Shepard MD: [address], [place] [address], Ph. [phone] Social History Tobacco Smoking Status Never Smoker Vaccine List None recorded. Plan of Care Reminders Provider Appointments None recorded. ? ? Lab None recorded. ? ? Referral None recorded. ? ? Procedures None recorded. ? ? Surgeries None recorded. ? ? Imaging None recorded. ? ? Vitals 12/04/2021 01:40PM Any 10 Height Weight BMI Blood Pressure 5 ft 11 in 172 lbs 16 oz 24.1 kg/m2 141/76 mm[Hg] 09/30/2021 02:40PM Any 10 Height Weight BMI Blood Pressure 5 ft 11 in 172 lbs 16 oz 24.1 kg/m2 121/73 mm[Hg] 08/14/2021 08:20AM Any 10 Height Weight BMI Blood Pressure 5 ft 11 in 174 lbs 16 oz 24.4 kg/m2 (1) 142/91 mm[H g] (2) 120/71 mm[Hg ] 12/12/2019 10:50AM Post Op 10 Height Weight BMI Blood Pressure 5 ft 11 in 174 lbs 16 oz 24.4 kg/m2 116/74 mm[Hg] 11/09/2019 12:00PM Post Op 10 Height Weight BMI Blood Pressure 5 ft 11 in 174 lbs 16 oz 24.4 kg/m2 119/76 mm[Hg] 10/19/2019 01:00PM Post Op 10 Height Weight BMI Blood Pressure 5 ft 11 in 174 lbs 16 oz 24.4 kg/m2 140/80 mm[Hg] 10/06/2019 09:20AM Pre Op 30 Height Weight BMI Blood Pressure 5 ft 11 in 174 lbs 16 oz 24.4 kg/m2 133/74 mm[Hg] 08/04/2019 02:00PM New Patient 20 Height Weight Blood Pressure 5 ft 11 in 122/84 mm[Hg]
--- OUTSIDE RECORDS SUMMARY | 2022-07-07 12:05 | XMS_ITS | Continuity of Care Document ---
:1945 Author Organization [facility] Address [address] [place] [address]- Care Team Providers Name Role Phone PHYSICIAN, OUT OF AREA Primary Care Physician Unavailable Encounter [facility] [id number] Date(s): 10/20/19 - 11/11/[address] [address] [phone] Attending Physician: Johnathan Shepard MD Referring Physician: Johnathan Shepard MD Problem List Condition Effective Dates Status Health Status Informant Hip osteoarthritis(Confirmed) Active Osteoarthritis of left hip(Confirmed) Active Allergies, Adverse Reactions, Alerts No Known Allergies Medications aspirin 81 mg oral delayed release tablet 81 mg, = 1 tab(s) each dose, PO (oral), bidMeals, Qty: 60 tab(s), Refill #: 0, Pharmacy: [facility] #[id number], 1 tab(s) PO (oral) bidMeals,x30 day(s) Start Date: 10/10/19 Stop Date: 11/09/19 Status: Orderedatorvastatin 80 mg oral tablet 80 mg, = 1 tab(s) each dose, PO (oral), qAM, Refill #: 0 Start Date: 09/20/19 Status: Ordereddocusate sodium 100 mg oral capsule 100 mg, = 1 capsules each dose, PO (oral), bid, Qty: 60 capsules, Refill #: 0, Pharmacy: [facility] #[id number], 1 capsules PO (oral) bid,x30 day(s) [...]
--- OUTSIDE RECORDS SUMMARY | 2022-07-07 12:05 | XMS_ITS | Continuity of Care Document ---
:1945 Author Organization [facility] Address [address] [place] [address]- Care Team Providers Name Role Phone PHYSICIAN, OUT OF AREA Primary Care Physician Unavailable Encounter [facility] [id number] Date(s): 10/09/19 - 10/12/19 [address] [place] [address] [phone] Encounter Diagnosis Hip osteoarthritis (Discharge Diagnosis) - [...] Qty: 60 tab(s), Refill #: 0, Pharmacy: [facility] #[id number], 1 tab(s) PO (oral) bidMeals,x30 day(s) Start Date: 10/10/19 Stop Date: 11/09/19 Status: Orderedatorvastatin 80 mg oral tablet 80 mg, = 1 tab(s) each dose, PO (oral), qAM, Refill #: 0 Start Date: 09/20/19 Status: Ordereddocusate sodium 100 mg oral capsule 100 mg, = 1 capsules each dose, PO (oral), bid, Qty: 60 capsules, Refill #: 0, Pharmacy: [facility] #[id number], 1 capsules PO (oral) bid,x30 day(s) Start Date: 10/10/19 Stop Date: 11/09/19 Status: Orderedindomethacin 25 mg oral capsule 25 mg, = 1 capsules each dose, PO (oral), bidMeals, Qty: 24 capsules, Refill #: 0, [id number], 1 capsules PO (oral) bidMeals,x12 day(s) [...] OF [place] - [place], [id number], 10 mL PO (oral) qDay,x30 day(s),PRN:Constipation,Instr:MILK [...] status post left total hip replacement, Pharmacy: [facility] #[id number], 1 tab(s) PO (oral) [...] Referrals to Other Providers, Order placed by [facility]. Referred by: SYSTEM Functional Status 10/11/19 Assistive Device Gait belt, [...] x10^3/uL (10/11/19 1:07 AM) (10/10/19 1:15 AM) Alfalfa Absolute [0.10-1.40 x10^3/uL] 1.01 x10^3/uL 1.38 x10^3/uL [...] 1:29 PM) 1Result Comment: Test performed at [facility], [facility], [address], [place], [address] Fabricio Veliz RRadiology Reports Exam Date Time [...] O.R. Electronically Signed S: CSJ-Radiologist , Not Figyvip7210/12/2019 14:03 Vital Signs Most recent to oldest [...] Up Care09/19/2019 15:37:54With:Johnathan Shepard MD, ORTHOPEDICS Address: [address] [address]- Business (1) When:10 - 14 days only if neededWith:OUT OF AREA PHYSICIAN Address:Unknown When:Unknown Reason for Referral , Order placed by [facility]. Referred by: SYSTEM
== END 2022-07-07 11:54 | disposition home or self-care (01) ==
LOC: NM 11:54
PROVIDERS: PCP Family Medicine; Visit Provider Orthopaedic Surgery Sports Medicine
DX: M25.551 Pain in right hip (principal)
CPT/HCPCS: 78315; A9503

== ENCOUNTER 2024-11-21 16:48 | Outpatient (CLI) | payer MEDICARE, BC, SELFPAY | END 2024-11-21 16:49 | disposition home or self-care (01) | LOC: AMB 11-22 15:55 | PROVIDERS: PCP Student in an Organized Health Care Education/Training Program; Visit Provider Emergency Medicine | DX: S73.005A Unspecified dislocation of left hip, initial encounter (principal) | CPT/HCPCS: A0425; A0427 ==

== ENCOUNTER 2024-11-21 17:53 | Emergency (ER) | payer MEDICARE, BC, SELFPAY ==
[2024-11-21] VITALS (24 sets, daily range): BP systolic 126–159; BP diastolic 53–92; PULSE 59–76; RESP 0–19; TEMP 36.6; O2SAT 93–100; BMI 24.4
--- OUTSIDE RECORDS SUMMARY | 2024-11-21 18:39 | XMS_ITS ---
Author Organization [facility] Address [address] [place] [address] Care Team Providers Care Inside Sales Director Name Role Phone Tawny River M.D. Primary Care Provider Active Problems * This document contains information received from the source organization and may not represent a complete record from that organization. Patient Care Coordination No te Formatting of this note migh t be different from the original. 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) 04/19/2024 Assessment & Plan (04/19/2024 8:36 AM CDT): Followed by Cardiology in [place] and in [place], [place] Polyneuropathy 07/13/2023 Dislocation Recurrent Hip Right 12/10/2022 Primary Malignant Neoplasm Of Prostate 2 Presence Of Right Artificial Hip Joint 2 Elevated Prostate-Specific Antigen 05/15/2021 Cancer Prostate Family History 05/15/2021 Hypertension Essential Primary 09/20/2020 Arthroplasty Total Hip Replacement Status Post L eft 10/19/2019 Primary Osteoarthritis Hip Left 08/04/2019 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 Past Treatment and Therapy Plans Infusion Therapy 1 Plan Name Start Date Discontinue Date Treatment Medications Discontinue Reason Plan Provider leuprolide (LUPRON) 07/24/2022 07/19/2023 No medications scheduled. Therapy Complete Siomara Hope M.D., Ph.D. Past Radiation Episodes * SBRT: ProstateOverview* First Treatment Date Last Treatment Date Treatment Site Technique Goal Episode Provider 08/12/2022 08/21/2022 Prostate SBRT Curative * Linked Problems Primary Malignant Neoplasm O f Prostate Treatment Courses* Course 1xProstateSBRT 08/12/2022 - 08/21/2022 Treatment Period Fraction Dose Fractions Total Dose Plans Planned [id number] 08/12/2022 - 08/21/2022 800 cGy 5 / 5 4 ,000 cGy Reference Points Delivered dpv 4000x 08/12/2022 - 08/21/2022 4,000 cGy Resolved Problems Problem Noted Date Diagnosed Date Resolved Date History Of Falling 04/28/2022
--- OUTSIDE RECORDS SUMMARY | 2024-11-21 18:39 | XMS_ITS | Clinical Summary ---
Author Organization [facility] Address [address] [place] [address] Care Team Providers Care Evaporator Helper Name Role Phone Jewel Kapoor Primary Care Provider Allergies No known active allergies Medications atorvastatin (LIPITOR) 80 mg tablet Take 80 mg by mouth every morning. 0 Active losartan (COZAAR) 50 mg tablet Take 50 mg by mouth once daily. 0 Active nitroglycerin (NITROSTAT) 0.[address] 0.4 mg under the tongue every 5 minutes if needed for Chest Pain. Active metoprolol succinate (TOPROL XL) 50 mg sustained-rele ase tablet Take 50 mg by mouth once daily. Active triamcinolone (ARISTOCORT; KENALOG) 0.1 % cream Apply topically to affected area(s) 2 times daily if needed (For psoriasis). Apply to scalp 2 Active diphenhydrAMIN E-acetaminophe n 25-500 mg (TYLENOL PM) 25-500 mg tablet Take 1.5 Tablets by mouth at bedtime. Max acetaminophen dose: 4000mg in 24 hrs. Active aspirin (ECOTRIN) 81 mg enteric coated tabletIndicati ons:S/P revision of total hip Take 1 Tablet (81 mg) by mouth two times daily with meals. 60 Tablet 3 Active acetaminophen (TYLENOL EXTRA STRGTH) 500 mg tabletIndicati ons:S/P revision of total hip Take 2 Tablets (1,000 mg) by mouth three times daily. Max acetaminophen dose: 4000mg in 24 hrs. 0 3 Active traMADoL (ULTRAM) 50 mg tabletIndicati ons:S/P revision of total hip Take 1 Tablet (50 mg) by mouth every 4 hours if needed for Pain. 30 Tablet 3 Active ibuprofen (ADVIL; MOTRIN) 400 mg tabletIndicati ons:S/P revision of total hip Take 1 Tablet (400 mg) by mouth four times daily with meals and at bedtime. 0 3 Active Active Problems Problem Noted Date Diagnosed Date S/P revision of total hip, left 08/27/2022 S/P total right hip arthroplasty 04/23/2022 Coronary artery disease Hyperlipidemia Hypertension Peripheral neuropathy Elevated prostate specific antigen (PSA) Immunizations Immunization Administration Dates Next Due COVID-19 vaccine (Moderna 100mcg/0.5mL) PFHERMES 12/16/2021,11/19/2020,10/19/2020 Hepatitis A (Adult) 06/19/2013,05/11/2007,2005 Hepatitis B (Adult) 06/19/2013,06/13/2012,2011 Hepatitis B (Peds) 06/19/2013 Hepatitis B, Unspecified 06/13/2012,05/05/2012 Inactivated Polio Vaccine 04/19/2006 Influenza Virus, Unspecified 06/27/2016,08/05/20 13,09/11/2011 Influenza, High-dose Inactivated 019,05/30/2018,07/12/2017,2015,07/02/2014,08/05/2013 Influenza, High-dose Quadriv alent Inactivated 06/18/2021,06/14/2020 Influenza, IIV3 (Age 6-35 mos) 5,07/06/2012,06/30/2010,2008 Influenza, IIV3 (Age >=3 years) 09/11/2011,07/29 Influenza, Inactivated AIIV4 (Age 65+ Years) Preserv Free 06/22/2022 Pneumococcal Poly,23-Valent (Pneumovax) 04/16/2020,04/01/2017(Deferred: Patient Refused) Pneumococcal conj 13-Valent (Prevnar 13) 03/19/2016 TD, UNSPECIFIED 04/13/2006 Td (Age >=7 Years) 06/19/2013(Deferred: Patient Refused),04/13/2006 Tdap 03/19/2016,04/19/2006 Typhoid (injectable) 04/25/2012 Zoster (Shingrix-RZV, recombinant) 08/24/2022, Zoster (Zostavax-ZVL, live) 10/05/2009, 9 Zoster, Unspecified Formulation 06/24/2021(Defer red: Patient Refused) Family History Medical History Relation Name Comments Alcoholism Brother Cancer-prostate Brother Alcoholism Father Coronary artery disease Father Relation Name Status Comments Brother Father Social History Tobacco Use Types Packs/Day Years Used Date Smoking Tobacco: Never Smokeless Tobacco: Never Tobacco Cessation:Counseling Given: Not Answered Alcohol Use Standard Drinks/Week Comments Yes 0 (1 standard drink = 0.6 oz pur e alcohol) 5 cans of beer/week Social Connections Answer Date Recorded Frequency of Communication with Friends and Fami ly Not on file 12/21/2022 Sex and Gender Information Value Date Recorded Sex Assigned at Not on file Legal Sex Male 6:03 AM [employer] Gender Identity Not on file Sexual Orientation Not on file Obstetrics History Last Filed Vital Signs Vital Sign Reading Time Taken Comments Blood Pressure 118/59 09/19/2022 11:30 AM [employer] Pulse 58 09/19/2022 11:30 AM [employer] Temperature 36.3 C (97.4 F) 09/19/2022 11:30 AM [employer] Respiratory Rate 16 09/19/2022 11:30 AM [employer] Oxygen Saturation 99% 09/19/2022 11:30 AM [employer] Inhaled Oxygen Concentration - - Weight 85.1 kg (187 lb 9.6 oz) 09/18/2022 10:34 AM [employer] Height 180.3 cm (5' 11) 09/18/2022 10:34 AM [employer] Body Mass Index 26.16 09/18/2022 10:34 AM [employer] Plan of Treatment Health Maintenance Due Date Last Done Comments Depression screening for age 12+ 1957 BMI (ht and wt on same day) for age 18+ 1963 Hepatitis C screening for ag e 18-79 1963 Medicare Wellness for age 65+ 2010 RSV vaccine for adults or (1 - 1-dose 75+ series) 2020 COVID-19 vaccine series ( season) 2024 05/20/2022, 12/16/2021, 07/07/2021, Additional history exists Influenza Vaccine (#1) 2024 2, 06/16/2019, 05/30/2018, Additional history exists Tetanus booster 03/19/2026 03/19/2016, 03/2006, 04/13/2006, Additional history exists Tdap Completed 03/19/2016, 04/19/2006 Pneumococcal series for age 50+ Completed , 03/19/2016 Zoster (shingles) series for age 50+ Completed 08/24/2022, 04/28/2022, 10/05/2009, Additional history exists Medical Devices Implanted Type Area Tumble Tailstock Turret Lathe Operator Device Identifier Shelf Expiration Date Model / Serial / Lot Trident Ii Tritanium Clusterhole Acetabular Shell Implanted:Qty: 1 on 05/11/2022 by Richard Hammonds MD at [facility] Right: Hip [employer] [facility] [employer] 01/21/2027 [id number] / / [id number] Mdm Liner Cementless Implanted:Qty: 1 on 05/11/2022 by Richard Hammonds MD at [facility] Right: Hip [employer] [facility] 03/20/2027 [id number] / / [id number] Adm/Mdm X3 Insert For Adm/Mdm Implanted:Qty: 1 on 05/11/2022 by Richard Hammonds MD at [facility] Right: Hip [employer] 10/19/2026 [id number] / / [id number] Accolade Ii 132 Degree Neck Angle Hip Stem Implanted:Qty: 1 on 05/11/2022 by Richard Hammonds MD at [facility] Right: Hip [facility] 10/02/2026 [id number] / / [id number] [employer] Delta Ceramic V40 Femoral Head Implanted:Qty: 1 on 05/11/2022 by Richard Hammonds MD at [facility] Right: Hip [facility] 02/25/2026 [id number] / / [id number] [employer] Anatomic [place] Taper Femoral Head Implanted:Qty: 1 on 09/18/2022 by Richard Hammonds MD at [facility] Left: Hip [facility] 11/25/2026 / [id number] / [id number] [place] V40 Taper Adapter Sleeve Implanted:Qty: 1 on 09/18/2022 by Richard Hammonds MD at [facility] Left: Hip [facility] 03/18/2025 / [id number] / [id number] Insurance BLUE CROSS [place] BLUE MR PB ONLY MR BC [place] MEDICARE PROVIDER BASED Advance Directives * Full Code (Latest Code Status on File) Date Activated Date Inactivated Comments 09/18/2022 2:36 PM 09/19/2022 3:56 PM Question Answer Comments Code Status Discussion: Unable to Assess Preferences, Provider to review later * Full Code Date Activated Date Inactivated Comments 09/18/2022 10:06 AM 09/18/2022 2:35 PM Question Answer Comments Code Status Discussion: Not Discussed * Full Code Date Activated Date Inactivated Comments 05/11/2022 1:34 PM 05/13/2022 2:16 PM Question Answer Comments Code Status Discussion: Unable to Assess Preferences, Provider to review later * Full Code Date Activated Date Inactivated Comments 05/11/2022 10:17 AM 05/11/2022 1:33 PM Question Answer Comments Code Status Discussion: Not Discussed Care Teams Evaporator Helper Relationship Specialty Start Date End Date Jewel Kapoor MBBS [address] [place] [address] [place] [address] PCP - General Family Practice 05/11/22
--- OUTSIDE RECORDS SUMMARY | 2024-11-21 18:39 | XMS_ITS | Clinical Summary ---
Author Organization [facility] Address [address] [place] [address] Care Team Providers Care Ferry Terminal Agent Name Role Phone Tawny River M.D. Primary Care Provider Source Comments Patient records contain information from all sites at [facility]. For routine questions regarding patient records, call [phone] during business hours, M-F 8:00 AM - 5:00 PM Central Time. Record requests for emergency care only can be directed to [phone] at any time.[facility] Allergies No known active allergies Medications * This document contains information received from the source organization and may not represent a complete record from that organization. aspirin 81 mg chewable tablet Chew 1 tablet daily. 3 Active naproxen sodium (ALEVE/ANAPROX) 220 mg tablet Take 220 mg by mouth as needed. Active acetaminophen (Tylenol Extra Strength) 500 mg tablet Take 500 mg by mouth at bedtime. 0 Active sildenafiL (VIAGRA) 50 mg tabletIndicatio ns:Dysfunction Erectile Take 0.5-1 tablets (25-50 mg total) by mouth daily as needed for erectile dysfunction (Take 1 hour prior to sexual activity.). 9 tablet 1 3 Active metoprolol succinate (TOPROL-XL) 50 mg 24 hr tabletIndicatio ns:Coronary Artery Disease Without Angina Pectoris,Hypert ension Essential Primary TAKE 1 TABLET BY MOUTH EVERY DAY DO NOT CRUSH OR CHEW 90 tablet 3 4 Active amoxicillin (AmoxiL) 500 mg capsule Take 500 mg by mouth. For dental 4 Active ketoconazole (Nizoral) 2 % shampooIndicati ons:Dermatitis Seborrheic APPLY TOPICALLY AND SHAMPOO 3 TIMES WEEKLY DIRECTED- LEAVE ON FOR 5 TO 10 MINUTES, THEN RINSE 120 mL 4 4 Active ALPRAZolam (Xanax) 0.25 mg tabletIndicatio ns:Anxiety Take 1 tablet (0.25 mg total) by mouth 2 (two) times a day as needed for anxiety. 5 tablet 4 Active losartan (Cozaar) 50 mg tablet take one tablet by mouth every day 90 tablet 3 4 Active atorvastatin (Lipitor) 80 mg tabletIndicatio ns:Coronary Artery Disease Without Angina Pectoris,Hyperl ipidemia take one tablet by mouth every day 90 tablet 3 4 Active Active Problems Patient Care Coordination No te Formatting of this note migh t be different from the original. 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) 04/19/2024 Assessment & Plan (04/19/2024 8:36 AM CDT): Followed by Cardiology in [place] and in [place], [place] Polyneuropathy 07/13/2023 Dislocation Recurrent Hip Right 12/10/2022 Primary Malignant Neoplasm Of Prostate 2 Presence Of Right Artificial Hip Joint 2 Elevated Prostate-Specific Antigen 05/15/2021 Cancer Prostate Family History 05/15/2021 Hypertension Essential Primary 09/20/2020 Arthroplasty Total Hip Replacement Status Post L eft 10/19/2019 Primary Osteoarthritis Hip Left 08/04/2019 Atherosclerotic Heart Diseas e Of [place] Coronary Artery Without Angina Pectoris 03/29/2018 Neuropathy Peripheral 02/05/2016 Herpes Simplex Labialis 02/05/2016 Hyperglycemia 03/09/2007 Pain Low Back Unspecified 02/26/2005 Hyperlipidemia 01/11/2004 Pain Chest 01/11/2004 Resolved Problems Problem Noted Date Diagnosed Date Resolved Date History Of Falling 04/28/2022 4 Encounters Date Type Department Care Team Description 09/15/2024 Clinical Communication Department of Cardiovascular Diseases in [place], [place] [address] [place] [phone] Adalid Silva APRN, C.N.P. 09/15/2024 Clinical Communication Department of Family Medicine, [facility] in [address] [phone] Desiree Roe R.N. [facility] Treatment Review 09/14/2024 Nurse Triage Department of Family Medicine, [facility], in [place], [place] [address] [place] [phone] Caryn Mena R.N. COVERWIN Nurse Line from Last 3 Months Immunizations Immunization Administration Dates Next Due HZV (ZOSTAVAX) 10/05/2009,09/13/2008 HepA Adult 06/19/2013,05/11/2007,04/19/2006 HepB Adult 06/19/2013,06/13/2012,05/05/2012 HepB Pediatric/Adolescent 06/19/2013 HepB, Unspecified 06/13/2012,05/05/2012 IPV 04/19/2006 Influenza Split 08/05/2013 Influenza TIV (IM) 09/11/2011 Influenza high dose QV(65 ye ars or older) (PF) 07/03/2023,06/18/2021,06/14/2020 Influenza, Quadrivalent, Adj uvanted, Preservative Free 06/22/2022 Influenza, Seasonal, Injectable 09/11/2011,07/29 Influenza, Unspecified 06/27/2016,08/05/2013, PCV13 03/19/2016 PPSV23 04/16/2020, 9(Deferred: Other),04/01/2017(Deferred: Other) RSV: respiratory syncytial v irus (AREXVY) recombinant vaccine 07/13/2023 RZV (SHINGRIX) 08/24/2022, 2,06/24/2021(Deferr ed: Patient decision) SARS-COV-2 (COVID-19) - MODERNA(Discontinued) 12/16/2021,11/19/2020,10/19/2020 Td (Adult), adsorbed 06/19/2013(Deferred: Other) ,04/13/2006 Td, (Adult) Unspecified 04/13/2006 Tdap 03/19/2016 TyVi (inj) 04/25/2012 Zoster, Unspecified 06/24/2021(Deferred: Other),03/11/2021(Deferred: Other) influenza trivalent high dos e (HD)(PF) 06/16/2019,05/30/2018,07/12/2017,2015,07/02/2014,08/05/2013 influenza trivalent vaccine (6 months and older)(PF) 06/13/2015,07/06/2012,06/30/2010,2008 Family History Medical History Relation Name Comments Alcoholic Brother Balta Prostate cancer Brother Balta Alcohol abuse Father Dane whelan Maybe Coronary artery disease Father Dane whelan Heart attack Father Dane whelan Heart disease Father Dane whelan Alcohol abuse Maternal Grandmother Balta No Known Problems Mother Heart disease Paternal Grandfather No Known Problems Sister Colon cancer Neg Hx Relation Name Status Comments Brother Balta Alive Father Dane whelan (Age 69) from hea rt attack Maternal Grandmother Balta Mother (Age 89) from old a ge Paternal Grandfather (Age 45) Sister Alive Social History Tobacco Use Types Packs/Day Years Used Date Smoking Tobacco: Never Passive Smoke Exposure: Never Smokeless Tobacco: Never Alcohol Use Standard Drinks/Week Comments Yes 6 (1 standard drink = 0.6 oz pur e alcohol) 4 times per week Humiliation, Afraid, Rape, and Kick questionnair e Answer Date Recorded Within the last year, have y ou been afraid of your partner or ex-partner? No 02/05/2022 Emotionally Abused Not on file 02/05/2022 Within the last year, have y ou been kicked, hit, slapped, or otherwise physically hurt by your partner or ex-partner? No 02/05/2022 Sexually Abused Not on file 02/05/2022 Social Connection and Isolat ion Panel [NHANES] Answer Date Recorded Frequency of Communication w ith Friends and Family Not on file 02/05/2022 How often do you get togethe r with friends or relatives? Three times a week 02/05/2022 Attends Temple Services Not on file 02/05 Do you belong to any clubs o r organizations such as advent groups, unions, fraternal or athletic groups, or school groups? Yes 02/05/2022 How often do you attend meet ings of the clubs or organizations you belong to? More than 4 times per year 02/05/2022 Are you , , di vorced, , never , or living with a partner? 02/05/2022 AUDIT-C Answer Date Recorded Q1: How often do you have a drink containing alcohol? 4 or more times a week 02/05/2022 Average Number of Drinks Not on file 022 Q3: How often do you have si x or more drinks on one occasion? Never 02/05/2022 Overall Financial Resource Strain (CARDIA) Answe r Date Recorded How hard is it for you to pa y for the very basics like food, housing, medical care, and heating? Not hard at all 07/29/2023 PHQ-2 Answer Date Recorded PHQ-2 Score 0 04/19/2024 [facility] - Occupational Stress Questionnaire Answer Date Recorded Do you feel stress - tense, restless, nervous, or anxious, or unable to sleep at night because your mind is troubled all the time - these days? Only a little 02/05/2022 Exercise Vital Sign Answer Date Recorde d On average, how many days pe r week do you engage in moderate to strenuous exercise (like a brisk walk)? 5 days 07/29/2023 On average, how many minutes do you engage in exercise at this level? 50 min 07/29/2023 Hunger Vital Sign Answer Date Recorded Within the past 12 months, y ou worried that your food would run out before you got the money to buy more. Never true 07/29/20 23 Within the past 12 months, t he food you bought just didn't last and you didn't have money to get more. Never true 07/29/2023 PRAPARE - Transportation Answer Date Re corded In the past 12 months, has l ack of transportation kept you from medical appointments or from getting medications? No 07/14 In the past 12 months, has l ack of transportation kept you from meetings, work, or from getting things needed for daily living? No 07/29/2023 Nutrition Answer Date Recorded On average, how many serving s of fruits and vegetables do you eat per day (serving size is equal to 1 cup or approximately the size of a tennis ball)? 3-5 07/29/2023 Dental Answer Date Recorded Dental: Regular Dentist Yes 04/15/20 Employment Answer Date Recorded Employment status Retired 07/29/2023 Housing Stability Answer Date Recorded What is your living situation today? [facility] 07/29/2023 Education Answer Date Recorded What is the highest level of school you have completed or the highest degree you have received? 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 Gender Identity Male 03/27/2018 8:35 PM CDT Sexual Orientation Straight 03/27/2018 8: 35 PM CDT Last Filed Vital Signs Vital Sign Reading Time Taken Comments Blood Pressure 128/75 04/19/2024 7:54 AM CDT Pulse 58 04/19/2024 7:54 AM CDT Temperature 36.1 C (97 F) 03/08/2024 10:07 AM CDT Respiratory Rate 20 07/13/2023 2:19 PM CDT Oxygen Saturation 100% 04/23/2023 7:2 8 AM CDT Inhaled Oxygen Concentration - - Weight 84.4 kg (186 lb 1.1 oz) 04/19/20 7:52 AM CDT Height 182 cm (5' 11.65) 04/19/2024 7: 52 AM CDT with shoes Body Mass Index 25.48 04/19/2024 7:52 AM CDT Plan of Treatment Upcoming Encounters Date Type Department Care Team (Late st Contact Info) Description 12/15/2024 9:20 AM CDT Appointment Department of Laboratory Medicine in [address] [place] [phone] Ilir Lema APRN, C.N.P., D.N.P. [address] [place] [phone] Health Maintenance Due Date Last Done Comments Hepatitis B Screening 1945 Hepatitis C Screening 1945 IPV Vaccines (2 of 3 - Adult catch-up series) 05/17/2006 04/19/2006 Visit: Chronic Disease, age 18+ 04/14/2024 04/14/2023 COVID-19 Vaccine ( season) 2024 01/17/2023, 05/20/2022, 12/16/2021, Additional history exists Influenza Vaccine (#1) 2024 , 06/22/2022, 06/18/2021, Additional history exists Depression Screening (Annual PHQ-2) 09/13/2024 Fall Risk Screen (Annual) 09/13/2024 Creatinine Level (Kidney Function Test) 01/27/2025 01/28/2024, 03/01/2023, 08/24/2022, Additional history exists Potassium Level 01/27/2025 01/28/2024, 02/11, 08/24/2022, Additional history exists Sodium Level 01/27/2025 01/28/2024, 02/11, 08/24/2022, Additional history exists Fasting Glucose for Diabetes Screening 03/08/2025 03/08/2024, 01/28/2024, 04/09/2023, Additional history exists Office Visit for Blood Pressure Check / Re-check 04/19/2025 04/19/2024 Visit: Medicare Annual Wellness 04/19/2025 04/14/2023 Postponed from 04/15/2024 (Patient Refused) DTaP,Tdap,and Td Vaccines (2 - Td or Tdap) 03/19/2026 03/19/2016, 04/13/2006, 04/13/2006 Colonoscopy Discontinued 05/24/2008, 10/24/2007 Hepatitis A Vaccines Completed 06/19/2013, 05/11/2007, 04/19/2006 Hepatitis B Vaccines Completed 06/19/2013, 06/19/2013, 06/13/2012, Additional history exists Pneumococcal vaccine (50+ years) Completed 04/16/2020, 03/19/2016 Cologuard Discontinued 05/15/2020, 04/19/2017 Colorectal Cancer Screening Discontinued Zoster Vaccines Completed 08/24/2022, 04/13, 10/05/2009, Additional history exists RSV vaccine - (32-36 weeks) or 60+ years Completed 07/13/2023 CT Colonography Discontinued FIT Discontinued HPV Vaccines Aged Out No longer eligi ble based on patient's age to complete this topic Medical Devices Implanted Type Area Desk Manager Device Identifier Shelf Expiration Date Model / Serial / Lot Synergy 2.75 X 28 - Bello [id number] Implanted:Qty: 1 on 07/14/2017 Cardiac Stent Pretty Padded Room Description:Device Manufactu rer - Pretty Padded Room. Device Status Text - [id number]. Synergy 3.5 X 16 - Bello [id number] Implanted:Qty: 1 on 07/14/2017 Cardiac Stent [employer]ie Scientific Description:Device Manufactu rer - Bowie Gecko. Device Status Text - [id number]. Hip Implant Hip Implant Bilateral: Hip Marker Gold Seed 0.8 Alexandrea 3 Lng - [id number] Implanted:Qty: 4 on 07/27/2022 by Blue Lopez M.D. at [facility] Imaging Marker Circumferen tial: Prostate [employer] 06/24/2023 [id number] / / [id number] Ocular Lens Ocular Lens Eye Procedures Procedure Name Priority Date/Time Associated Diagnosis Comments EXTM HOME SARS CORONAVIRUS-2 (COVID-19) ANTIGEN, V Routine 09/14/2024 8:00 AM ANTISQUEAK WORKER HEMOGLOBIN A1C, B Routine 03/08/2024 9:3 2 AM CDT Screening Examination Diabetes Mellitus Diabetes Mellitus Type 2 (HCC) Impaired Fasting Glucose BASIC METABOLIC PANEL, S/P Routine 01/28/2024 8:21 AM CDT Hypertension Essential Primary COLOGUARD Routine 05/15/2020 10:00 AM CDT Screening Cancer Colon from Last 3 Months or Most Recently Relevant to Health Maintenance Results * (ABNORMAL) EXT Home SARS Coronavirus-2 (COVID-19) Antigen (09/14/2024 8:00 AM ANTISQUEAK WORKER) EXT Home SARS-CoV-2 Antigen Presumptive Positive(A) Presumptive Negative OTHER (SPECIFY IN 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 LAB BLOOD ADD-ON Final Res ult [facility] [address] [address], [facility] OWAT [facility] in [place] [address] [place] [id number] * Basic Metabolic Panel (01/28/2024 8:21 AM CDT) Potassium, P 4.0 3.6 - 5.2 mmol/L 01/28/2024 8:46 AM CDT CNFL Sodium, P 142 135 - 145 mmol/L 01/28/2024 8:46 AM CDT CNFL Chloride, P 107 98 - 107 mmol/L 01/28/2024 8:46 AM CDT CNFL Bicarbonate, P 26 22 - 29 mmol/L 01/28/2024 8:46 AM CDT CNFL Anion Gap, P 9 7 - 15 01/28/2024 8:46 AM CDT CNFL BUN (Blood Urea Nitrogen), P 17 8 - 24 mg/dL 01/28/2024 8:46 AM CDT CNFL Creatinine 0.83 0.74 - 1.35 mg/dL 01/28/2024 8:46 AM CDT CNFL Estimated GFR (eGFR) 90 >=60 mL/min/BSA 01/28/2024 8:46 AM CDT CNFL Comment: Estimated GFR calculated using the 2020 CKD_EPI creatinine equation. Calcium, Total, P 8.9 8.8 - 10.2 mg/dL 01/28/2024 8:46 AM CDT CNFL Glucose, P CANCELED mg/dL 01/28/2024 8:23 AM CDT CNFL Comment: Duplicate test request. Result canceled by the ancillary. Blood (Blood, Venous) 01/28/2024 8:21 AM CDT 01/28/2024 8:22 AM CDT Adalid Silva APRN, C.N.P. LAB BLOOD ADD-ON Sabrina l Result [facility] [address] [place] [address], [facility] CNFL [facility] [place] [address] * Cologuard (05/15/2020 10:00 AM CDT) Result Negative Not Applicable 05/22/2020 5:15 PM CDT EXLI Comment: A negative result indicates a low likelihood that a colorectal cancer (CRC) or an advanced adenoma (adenomatous polyps with more advanced pre-malignant features) is present. The chance that a person with a negative Cologuard test has a colorectal cancer is less than 1 in 1500 (negative predictive value >99.9%) or has an advanced adenoma is less than 5.3% (negative predictive value 94.7%). These data are based on a prospective cross-sectional screening study of 10,000 individuals at average risk for colorectal cancer who were screened with both Cologuard and colonoscopy. (Jeromy Giron al, N Engl J Med 2014;370(14):9263-7604) The normal value (reference range) for this assay is negative. COLOGUARD RE-SCREENING RECOMMENDATION: Periodic routine colorectal cancer screening is an important part of preventive healthcare for asymptomatic persons at average risk for colorectal cancer. Following a negative Cologuard result, the [place] [employer] Society and U.S. Multi-Society Task Force screening guidelines recommend a Cologuard re-screening interval of 3 years. References: [place] [employer] Society (ACS). Colorectal cancer prevention and early detection. [place], [place]: [place] [employer]; [updated 2015Jan 04]. https://www.cancer.org/cancer/osfgu-nvutvu-bmegct/detection- diagnosis-staging/acs-recommendations.html. Accessed May 13, 2018; Keagan GONZALEZ, Roro TRIPLETT, Tayler HARVEY, Colorectal Cancer Screening: Recommendations for Physicians and Patients from the U.S. Multi-Society Task Force on Colorectal Cancer Screening, Am J Gastroenterology 2017; 112:3772-0075. TEST TYPE: Composite algorithmic analysis of stool DNA-biomarkers with hemoglobin immunoassay. Quantitative values of individual biomarkers are not reportable and are not associated with individual biomarker result reference ranges. PRECAUTIONS AND LIMITATIONS: Cologuard is intended for colorectal cancer screening of adults of either sex, 45 years or older, who are at average-risk for colorectal cancer (CRC). Cologuard has been approved for use by the U.S. FDA. Cologuard may produce a false negative or false positive result. A negative Cologuard test result does not guarantee the absence of CRC or advanced adenoma (pre-cancer). Patients with a negative Cologuard test result should be advised to continue participating in a colorectal cancer screening program. The screening interval for Cologuard is currently recommended at an interval of every 3 years by the [place] [employer] Society and U.S. Multi-Society Task Force. A false positive result occurs when Cologuard produces a positive result, even though a colonoscopy may not find colorectal cancer or precancerous polyps. The performance of Cologuard has been established in a cross sectional study (i.e., single point in time) of average-risk adults aged 50-84. Cologuard performance in patients ages 45 to 49 years was estimated by sub-group analysis of near-age groups. Cologuard performance data in a 10,000 patient pivotal study using colonoscopy as the reference method can be accessed at the following location: www.Zurrba.OnlineMarket/results. Additional description of the Cologuard test process, warnings and precautions can be found at www.cologuardtest.com. Rx only. Stool (Stool) 05/15/2020 10: 00 AM CDT 05/16/2020 6:09 PM CDT Ermias Gamez D.O. LAB BODY FLUIDS AND S TOOLS ORDERABLES Final Result [employer] [address] [place] [address] EXLI [employer] [address] [facility], [address] [place] [address] from Last 3 Months or Most Recently Relevant to Health Maintenance Insurance [facility] MEDICARE Care Teams Ferry Terminal Agent Relationship Specialty Start Date End Date Tawny River M.D. [address] [place] [address] [facility] - General 02/25/24
--- OUTSIDE RECORDS SUMMARY | 2024-11-21 18:40 | XMS_ITS | Data Portability ---
Author Organization [facility], [facility] Address [address] [place] [address] Care Team Providers Care Programmer Analyst Health It Name Role Phone JOHNATHAN SHEPARD Orthopedic Surgeon Assessment No assessment recorded. Plan of Treatment Reminders Order Date Submit Date Provider Last Modified By Organization Details Last Modified Time Details Appointments None recorded. Lab None recorded. Referral physical therapist referral 2021 022 HARLEY Not available 12:10:10 Procedures None recorded. Surgeries None recorded. Imaging XR, hip + pelvis, unilateral, 2 or 3 view - CPT: 04192 2020 021 [email or web address] In-Office Order, Internal Use Only DO Not Attach Compendium DO Not Attach Compendium, Do Not Delete/merge, [id number] 15:08:21 Medication Orders amoxicillin 500 mg tablet 2019 020 [id number], [address] [place], [address], 17:28:57 Patient TargetsNo targets recorded. Patient Instructions Encounter Date Encounter Id Patient Instructions Last Modified By Organization Details Last Modified Time 12/10/2022 [id number] eating healthy foods: care instructions Not available 12/10/2022 21:04:55 Reason for Referral Physical Therapist Referral for Trochanteric bursitis of left hip Referring Physician: Johnathan Shepard, Orthopedic Surgery, Encounter Date: 12/04/2021 Results Created Date Observation Date Name Description Value Unit Range Abnormal Flag Note LastModifiedBy Organization Detail LastModifiedTime 08/13/20 21 XR, hip + pelvi s, unila teral , 2 or 3 view No observ ation record ed. [email or web address] In-Office Order Internal Use Only DO Not Attach Compendium DO Not Attach Compendium, Do Not Delete/merge, [id number] 08/16/2021 15:05:02 Result Notes None recorded. Problems Name Problem SNOMED Code Status Onset Date Resolution Date Notes Provider Name and Address Organization Details Recorded Time Osteoarthri tis of left hip joint 9537831580942 08 Active 2018 Johnathan Shepard MD [address], [place], [address], [facility] 9 22:07:20 History of total replacement of left hip joint 3541255707407 105 [facility] Osteoarthri tis of hip 707696633 [facility] 10:07:16 Pain of left hip joint 5264134206697 00 Active 2020 Johnathan Shepard MD [address], [place], [address], [facility] 1 15:04:41 Trochanteri c bursitis of left hip 6557485336915 03 Active 2020 Johnathan Shepard MD [address], [place], [address], [facility] 1 15:05:48 Dislocation of hip joint prosthesis 435118769 Active 2022 Johnathan Shepard MD [address], [place], [address], [facility] 3 21:04:49 Overweight 884388065 Active 2022 Johnathan Shepard MD [address], [place], [address], [facility] 3 21:04:52 Problem Notes None recorded. Procedures Surgical History Date Name Laterality Status Provider Name and Address Organization Details Recorded Time Arthroscopic Surgery completed [facility] 08/11/2019 16:30:27 Popliteal Artery Stent completed [facility] 08/11/2019 16:30:46 Xcapsl ctrc rmvl cplx wo ecp completed [facility] 10/06/2019 11:30:24 Imaging Results Imaging Date Name Status LastModified by Organiz ation Details LastModified Time 08/13/2021 XR, hip + pelvis, unilateral , 2 or 3 view completed [email or web address] In-Office Order Internal Use Only DO Not Attach Compendium DO Not Attach Compendium, Do Not Delete/merge, [id number] 08/16/2021 15:05:02 Procedure Notes None recorded. Medical Equipment None Reported. Allergies No known drug allergies Medications Name Sig Start Date Stop Date Status Note LastModified by Organization Details LastModified Time losartan 50 mg tablet TAKE 1 TABLET BY MOUTH EVERY DAY active Not Available Not Available No t Available amoxicillin 500 mg capsule 08/04 completed Not Available Not Available Not Available atorvastati n 80 mg tablet TAKE 1 TABLET BY MOUTH EVERY DAY active Not Available Not Available No t Available ketoconazol e 2 % shampoo 12/10 completed Not Available Not Available Not Available metoprolol succinate ER 50 mg tablet,exte nded release 24 hr TAKE 1 TABLET BY MOUTH EVERY DAY active Not Available Not Available No t Available prednisone 20 mg tablet 12/10 completed Not Available Not Available Not Available Plavix 75 mg tablet Take 1 tablet every day by oral route. 10/06 completed Not Available Not Available Not Available ciprofloxac in 500 mg tablet 09/30 completed Not Available Not Available Not Available sulfamethox azole 800 mg-trimetho prim 160 mg tablet 12/10 completed Not Available Not Available Not Available aspirin 81 mg tablet,precious yed release Take 1 tablet po bid 11/09 completed Not Available Not Available Not Available tramadol 50 mg tablet 12/10 completed Not Available Not Available Not Available triamcinolo ne acetonide 0.1 % topical cream 12/10 completed Not Available Not Available Not Available amoxicillin 500 mg tablet TAKE 4 TABLET(S) BY ORAL ROUTE 1 HOUR BEFORE ANY DENTAL APPT 12/10 completed Not Available Not Available Not Available alprazolam 0.5 mg tablet 08/11 completed Not Available Not Available Not Available tamsulosin 0.4 mg capsule 12/10 completed Not Available Not Available Not Available baclofen 10 mg tablet 12/10 completed Not Available Not Available Not Available indomethaci n 25 mg capsule Take 1 tablet po bid 10/22 completed Not Available Not Available Not Available nitroglycer in 0.[address] 1 tablet by sublingua l route as needed. 12/10 completed Not Available Not Available Not Available docusate sodium 100 mg capsule Take 1 tablet po bid 11/09 completed Not Available Not Available Not Available gabapentin 100 mg capsule 12/10 completed Not Available Not Available Not Available metoprolol succinate ER 25 mg tablet,exte nded release 24 hr 12/10 completed Not Available Not Available Not Available Percocet 5 mg-325 mg tablet 1 1 by oral route. 10/17 completed Not Available Not Available Not Available cefdinir 300 mg capsule 12/10 completed Not Available Not Available Not Available Tylenol Extra Strength 500 mg tablet 2019 active Not Available Not Available Not Avai lable oxycodone 5 mg tablet 12/10 completed Not Available Not Available Not Available cholecalcif sujatha (vitamin D3) Take 1 capsule po qd 10/06 completed Not Available Not Available Not Available magnesium hydroxide 2,400 mg/10 mL oral suspension 11/09 completed Not Available Not Available Not Available Vitals Date Recorded Body height Pain severity - 0-10 verbal numeric rating [Score] - Reported Body mass index (BMI) Body weight Systolic blood pressure Diastolic blood pressure Provider Name and Address Organization Details Last Updated DateTime 0 180.34 cm 1 24.4 kg/m2 39428.6 6 g 116 mm[Hg] 74 mm[Hg] Ara Donovan [facility] 0 14:05:34 Date Recorded Body height Body mass index (BMI) Body weight Pain severity - 0-10 verbal numeric rating [Score] - Reported Heart rate Systolic blood pressure Diastolic blood pressure Systolic blood pressure Diastolic blood pressure Provider Name and Address Organization Details Last Updated DateTime 1 180.34 cm 24.4 kg/m2 49043.6 6 g 4 67 /min 142 mm[Hg] 91 mm[Hg] 120 mm[Hg] 71 mm[Hg] Todd Quintana [facility] 1 10:12:03 Date Recorded Body height Body mass index (BMI) Body weight Pain severity - 0-10 verbal numeric rating [Score] - Reported Heart rate Systolic blood pressure Diastolic blood pressure Provider Name and Address Organization Details Last Updated DateTime 2 180.34 cm 24.1 kg/m2 59757.4 8 g 2 77 /min 121 mm[Hg] 73 mm[Hg] Nusrat Marleys [facility] 2 17:31:07 Date Recorded Body height Body mass index (BMI) Body weight Heart rate Systolic blood pressure Diastolic blood pressure Provider Name and Address Organization Details Last Updated DateTime 2 180.34 cm 24.1 kg/m2 01232.4 8 g 62 /min 141 mm[Hg] 76 mm[Hg] Camille Gerardo [facility] 2 17:41:16 Date Recorded Body weight Body mass index (BMI) Body height Heart rate Systolic blood pressure Diastolic blood pressure Provider Name and Address Organization Details Last Updated DateTime 3 32838.3 7 g 26.2 kg/m2 180.34 cm 63 /min 152 mm[Hg] 85 mm[Hg] Maura Henderson [facility] 3 17:33:42 Social History Question Answer Notes LastModified by Organizat ion Details LastModified Time Tobacco Smoking Status [facility] 16:43:59 Do You Have An Advance Directive? Yes [email or web address] Information n ot available 08/04/2019 What Is Your Level Of Alcohol Consumption? Occasional [email or web address] Information not available 08/11/2019 Are You Blind Or Do You Have Difficulty Seeing? No Information not available 09/30/2021 Is Blood Transfusion Acceptable In An Emergency? Yes [email or web address] Information not available 08/04/2019 What Is Your Level Of Caffeine Consumption? Moderate [email or web address] Information not available 08/11/2019 How Much Tobacco Do You Chew? None [email or web address] Information not available 08/04/2019 Are You Currently Employed? No Information not available 09/30/2021 Are You Deaf Or Do You Have Serious Difficulty Hearing? No Information not available 09/30/2021 What Type Of Diet Are You Following? REGULAR [email or web address] Information n ot available 08/11/2019 Do You Or Have You Ever Used E-cigarettes Or Vape? Never Used Electronic Cigarettes Information not available 08/04/2019 Who Is Your Employer? 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 Right [email or web address] Information not available 08/11/2019 Single Or Multi-level Home/work? Single Level Home Information not available 09/30/2021 Live Alone Or With Others? With Others Information not available 09/30/2021 Cups/cans Per Day: 1 [email or web address] Info rmation not available 08/11/2019 Does The Patient Have Fever And Cough Or Shortness Of Breath AND In The Last 14 Days Has The Patient Come In Contact With Someone With Confirmed 2019-nCoV? No [email or web address] Information not available 10/19/2019 Does The Patient Have Fever And Cough Or Shortness Of Breath AND In The Last 14 Days Has The Patient Traveled From [facility] [place], [place], [place], [place] Or [place]? No [email or web address] Information not available 12/12/2019 Does The Patient Have Fever And Lower Respiratory Illness Requiring Hospitalization Without An Underlying Diagnosis? No [email or web address] Information not available 12/12/2019 Does The Patient Have Fever Or Lower Respiratory Symptoms Such As Cough Or Shortness Of Breath? No [email or web address] Information not available 12/12/2019 In The Last 14 Days, Has The Patient Traveled To [place], [place], [place], [place] Or [place] Including [place] And [place]? No [email or web address] Information not available 12/12/2019 In The Last 14 Days, Has The Patient Had Close Contact With A Coronavirus Patient? No [email or web address] Information not available 12/12/2019 What Was The Date Of Your Most Recent Tobacco Screening? 12/10/2022 smattice Information n ot available 12/10/2022 Have You Ever Been Counseled For Unhealthy Alcohol Use? No Information not available 09/30/2021 Do You Have Any Pets? Yes Information not available 09/30/2021 What Is Your Relationship Status? Information not available 09/30/2021 Do You Or Have You Ever Used Smokeless Tobacco? Never Used Smokeless Tobacco [email or web address] Information not available 08/04/2019 How Much Tobacco Do You Smoke? No Information not available 09/30/2021 General Stress Level Low Information not available 09/30/2021 Do You Feel Stressed (tense, Restless, Nervous, Or Anxious, Or Unable To Sleep At Night)? [id number] Information not available 09/30/2021 Do You Use Any Illicit Or Recreational Drugs? No Information not available 09/30/2021 Has Tobacco Cessation Counseling Been Provided? No Information not available 09/30/2021 How Many Years Have You Smoked Tobacco? 0 Information not available 08/04/2019 Do You Or Have You Ever Used Any Other Forms Of Tobacco Or Nicotine? No Information not available 09/30/2021 How Many Days In The Past Year Have You Consumed 5 Or More Drinks? 0 Information not available 09/30/2021 Sex: Unknown Functional Status Question Answer Note LastModified by Organization D etails LastModified Time Are you able to care for yourself? Yes [email or web address] Information not available 08/11/2019 What is your exercise level? Moderate [email or web address] Information not available 08/11/2019 Mental Status None recorded. Family History Relationship Description Onset Age of this Age Resolved Age Notes LastModified by Organization Details LastModified Time Father Heart disease [email or web address] Not available 16:29:02 Paternal Grandfather Heart disease [email or web address] Not available 16:29:02 Medical History Condition Response Heart Disease/Valve Disease Y High Blood Pressure (Hypertension) Y Past Encounters Encounter ID Performer Location Encounter Start Date Encounter Closed Date Diagnosis/Indication Diagnosis SNOMED-CT Code Diagnosis ICD10 Code Diagnosis Note [id number] Johnathan Shepard MD [facility] [address] [address] 08/04/2019 15:12:35 08/04/2019 18:04:05 Osteoarthritis of left hip joint 8339227813 53054 M16.12 The patient has failed nearly all of nonoperati ve therapy including steroid hip joint injections , and he is unable to take NSAIDs due to his cardiac history. Due to the severity of the hip degenerati on and bone loss, Physical therapy would increase hip pain and it is not indicated. We will proceed with tylenol 1000mg TID for hip pain. We will proceed with scheduling a left total hip replacemen t for the near future. [id number] MD [facility] [address] [address] 10/06/2019 10:57:12 10/06/2019 12:57:43 Osteoarthritis of left hip joint 9044004876 01091 M16.12 The risks and benefits of a left total hip replacemen t were discussed with the patient at length. Risks include infection, bleeding, blood vessel, nerve injury, pain and discomfort , DVT and PE, stiffness, leg length discrepanc y, dislocatio n, fracture, failure of the hardware, and need for future procedures . The patient voiced understand ing and wishes to proceed with surgery. The patient asked questions and these were answered. The patient is to take a shower with hibiclens the night before and morning of surgery. The patient is given a dose of coumadin to take the night before surgery. We are waiting for his cardiac clearance for surgery. He has an appointmen t with a cardiologi today for a stress test. [id number] MD [facility] [address] [address] 10/19/2019 14:45:56 10/19/2019 16:05:05 Osteoarthritis of left hip joint 5613539830 91839 M16.12 s/p left ANALIA. History of total replacement of left hip joint 6303550623 846743 Z96.642 Hip precaution s reviewed today. Start WBAT. PT script initiated. Discussed wound care of showering, no submerging , no scrubbing or applying ointments/ lotions. D/C MARIO hose. Follow-up in 3 weeks with xrays of operative hip. [id number] Johnathan Shepard MD [facility] [address] [address] 11/09/2019 13:30:08 11/09/2019 16:56:29 History of total replacement of left hip joint 8659855216 958116 Z96.642 Increase activity as tolerated. d/c aspirin BID. Continue home exercises. f/u with me 6 weeks. Osteoarthr itis of left hip joint 9296095012 02744 M16.12 s/p left ANALIA. [id number] Johnathan Shepard MD [facility] [address] [address] 12/12/2019 13:51:18 12/12/2019 14:43:50 History of total replacement of left hip joint 9642791607 842489 Z96.642 Use antibiotic s before any dental visits. Call me for any problems or concerns with replaced joint. Follow-up with me in 1 year with xrays of replaced joint. Script for amoxicilli n ERx'd. Osteoarthr itis of left hip joint 9539195501 87549 M16.12 s/p left ANALIA. [id number] Johnathan Shepard MD [facility] [address] [address] 08/14/2021 09:41:33 08/14/2021 11:17:59 History of total replacement of left hip joint 3028051909 694370 Z96.642 No evidence of complicati on with left ANALIA by exam, history, or xrays. Osteoarthr itis of left hip joint 1303209646 04751 M16.12 s/p left ANALIA. Pain of le ft hip joint 5554965875 74723 M25.552 Trochanter ic bursitis of left hip 0083174024 45913 M70.62 Long discussion with the patient regarding hip bursitis and treatment. The bursitis is due to scarring of the IT band to the underlying tissues, which is why the steroid injection was not effective. The best and most effective treatment is iliotibial band stretching and increasing hip range of motion. IT band stretching exercises were reviewed and demonstrat ed with the patient today. If the symptoms do not improve, then we will proceed with physical therapy. By maintainin g the hip flexibilit y, the bursitis will be minimized and avoid exacerbati on. He is scheduled for a spine injection in a few days which I recommend him keeping that appt as he may have some pain that is radiating from his low back. He will f/u with me in 6 weeks. More than 50% of this {{20 30* 4 5}} minute visit was spent on counseling and care coordinati on. [id number] Johnathan Shepard MD [facility] [address] [address] 09/30/2021 16:31:25 09/30/2021 17:54:59 Trochanteric bursitis of left hip 5260215081 35748 M70.62 His pain has improved over the last 6 weeks and should continue to improve over time with continued left hip IT band stretching and hip strengthen ing. He will continue with PT. He will f/u with me in 2 months as needed. More than 50% of this {{20* 30 4 5}} minute visit was spent on counseling and care coordinati on. History of total replacement of left hip joint 5488994566 774054 Z96.642 No evidence of complicati on with left ANALIA by exam, history, or xrays. Osteoarthr itis of left hip joint 8373136615 42128 M16.12 s/p left ANALIA. [id number] Johnathan Shepard MD [facility] [address],[facility] [address] [place] [address] 12/04/2021 16:34:57 12/04/2021 18:11:04 Trochanteric bursitis of left hip 5402004317 01694 M70.62 A long discussion was made with the patient regarding his left hip pain and trochanter ic bursitis. The pain has improved with hip stretching and PT. The pain should continue to improve with time, but he may have to perform the hip IT band stretching exercises daily to prevent recurrence . He is encouraged to continue the stretching exercises. He can continue PT in [place] and a script was provided. He will f/u with me as needed. More than 50% of this {{20 30* 4 5}} minute visit was spent on counseling and care coordinati on. History of total replacement of left hip joint 8509348300 043207 Z96.642 No evidence of complicati on with left ANALIA by exam, history, or xrays. Osteoarthr itis of left hip joint 1607813407 21724 M16.12 s/p left ANALIA. [id number] Johnathan Shepard MD [facility] [address] [address] 12/10/2022 16:43:07 12/10/2022 19:14:38 History of total replacement of left hip joint 2275627689 835532 Z96.642 Overweight 484640186 E66 .3 Diet: 1800 Calories Low Glycemic Diet Exercise: Work up to 30 min 5x/week as tolerated Dislocatio n of hip joint prosthesis 746675073 Z96.649 A long discussion was made with the patient regarding his left ANALIA and dislocatio n that he suffered last week. 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 We discussed hip precaution s and exercises that will help to strengthen is left hip. He is to avoid twisting activities for the next 6 weeks. He will f/u with his ANALIA surgeon in [place] upon his return. More than 50% of this {{20 30* 4 5}} minute visit was spent on counseling and care coordinati on. Health Concerns Section Related Observation LastModified by Organization Detai ls LastModified Time None Recorded Concern Status LastModified by Organization Details LastModified Time None Recorded Advance Directives Directive Y: Payers Encounter Date Sequence Insurance Name Policy Number Policy Sorenson Covered Member ID Sorenson Member ID Guarantor Name 12/12/2019 2 [facility] (MEDICARE REPLACEMENT/ ADVANTAGE - HMO) [id number] Dane Sheldon [id number] Dane Sheldon 12/12/2019 2 [place] Dane Sheldon Jr [id number] Dane Sheldon 08/14/2021 1 [place] Dane Sheldon Jr [id number] Dane Sheldon 08/14/2021 2 [facility] (MEDICARE REPLACEMENT/ ADVANTAGE - HMO) [id number] Dane Sheldon [id number] Dane Sheldon 09/30/2021 2 [facility] (MEDICARE REPLACEMENT/ ADVANTAGE - HMO) [id number] Dane Sheldon [id number] Dane Sheldon 12/04/2021 1 [place] Dane Sheldon Jr [id number] Dane Sheldon 12/04/2021 1 [place] [id number] Dane Sheldon [id number] Dane Sheldon 12/10/2022 1 [place] Dane Sheldon Jr [id number] Dane Sheldon 12/10/2022 2 [place] [id number] Dane Sheldon [id number] Dane Sheldon Notes Date Note Type Note Provider Name and Address Organization Details Recorded Time 12/12/2019 text/html Post-Op VisitReported bypatient.Onset/Balta ing:date of surgery: (10 weeks ago) Quality:procedure: (status post Left ANALIA) Associated Symptoms:incision healing well; normal appetite; pain improving; no painNotes:He is very happy with his pain relief and hip function thus far. He walks 6 miles daily for exercise. left hip pain Johnathan Shepard MD [address] [address], [place], [address], [facility] 12/12/2019 17:11:12 08/14/2021 text/html Hip(s)Reported bypatient.Location: left; lateral Quality:aching; dull Severity:pain level 4/10; worst pain 6/10 Duration:8 months Timing:chronic; gradual Context:atraumatic Alleviating Factors:rest; OTC medication; NSAIDs; cortisone injection; Ibuprofen and tylenol are mildly effective. Aggravating Factors:lying down; walking; going from sit to stand Associated Symptoms:no weakness; no numbness Previous Surgery:surgical procedure:; left total hip replacement 10/09/2019 Prior Imaging:x ray Previous Injections:helped a little; Steroid hip bursal injection was effective for 1 day. Previous PT:did not help Work Related:no left hip pain Johnathan Shepard MD [address], [place], [address], [facility] 08/16/2021 15:08:37 09/30/2021 text/html Hip(s)Reported bypatient.Location: left; lateral Quality:aching; dull; improving Severity:pain level 2/10; worst pain 4/10 Duration:10 months Timing:chronic; gradual Context:atraumatic Alleviating Factors:rest; stretching; PT/OT; OTC medication; NSAIDs; cortisone injection; Ibuprofen and tylenol are mildly effective. PT and IT band stretching have been effective. Aggravating Factors:lying down; walking; going from sit to stand Associated Symptoms:no weakness; no numbness Previous Surgery:surgical procedure:; left total hip replacement 10/09/2019 Prior Imaging:x ray Previous Injections:helped a little; Steroid hip bursal injection was effective for 1 day. Previous PT:helped significantly Work Related:no left hip pain Johnathan Shepard MD [address], [place], [address], [facility] 09/30/2021 20:47:49 12/04/2021 text/html Hip(s)Reported bypatient.Location: left; lateral Quality:aching; dull; improving Severity:pain level 1/10; worst pain 3/10 Duration:12 months Timing:chronic; gradual Context:atraumatic Alleviating Factors:rest; stretching; PT/OT; OTC medication; NSAIDs; cortisone injection; Ibuprofen and tylenol are mildly effective. PT and IT band stretching have been effective. Aggravating Factors:lying down; walking; going from sit to stand Associated Symptoms:no weakness; no numbness Previous Surgery:surgical procedure:; left total hip replacement 10/09/2019 Prior Imaging:x ray Previous Injections:helped a little; Steroid hip bursal injection was effective for 1 day. Previous PT:helped significantly Work Related:no left hip pain Johnathan Shepard MD [address], [place], [id number], [facility] 12/04/2021 20:53:28 12/10/2022 text/html Hip(s)Reported bypatient.Location: left; anterior; lateral Quality:aching; dull; acute pain last week Severity:no pain Duration:1 weeks Timing:acute; abrupt Context:twisting; left hip dislocation 1 week ago, treated at [facility] with hip reduction Alleviating Factors:rest Aggravating Factors:nothing Associated Symptoms:no weakness; no numbness Previous Surgery:surgical procedure:; left total hip replacement 10/09/[address] Shepard, left ANALIA revision in [place] 09/18/22 for metallosis Prior Imaging:x ray Previous Injections:none Previous PT:none Work Related:no left hip pain Johnathan Shepard MD [address], [place], [id number], [facility] 12/10/2022 21:05:11
[2024-11-21] MEDS: HYDROmorphone 0.5 mg/0.5 ml inj IVP (19:04)
[2024-11-21] MEDS: 0.9 % SODIUM CHLORIDE 500 ML 500 ML IV ×2 (19:05→20:40)
[2024-11-21] MEDS: PROPOFOL 10 MG/ML INJ 200 MG IVP (20:30)
--- NOTE | 2024-11-21 22:43 | ED.GENADULT ---
HPI - General Adult General Date Seen: 11/21/24 Chief complaint: Extremity Pain/Injury, Lower Stated complaint: Hip dislocation Time Seen by Provider: 11/21/24 17:59 History of Present Illness HPI narrative: Patient is a 79-year-old male here by EMS with complaint of probable left hip dislocation. 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 He says he was just sitting kind of shifted and felt it go out. This is the same way dislocated last time. No other trauma. No numbness or weakness. Severe pain with any movement of the left hip. Denies other significant medical history, does take medications for hypertension and cholesterol. Does not smoke or drink. Social stressors right now as his is currently hospitalized, she has a recent diagnosis of dementia, had intracranial hemorrhage and recent rib fractures, she will require care going forward and so he is in the midst of arranging that. She is scheduled to come home tomorrow. Related Data Home Medications ?Medication ?Instructions ?Recorded ?Confirmed atorvastatin 80 mg tablet mg DAILY 11/21/24 losartan 50 mg tablet mg DAILY 11/21/24 metoprolol succinate 50 mg mg PO DAILY 11/21/24 tablet,extended release 24 hr Allergies Allergy/AdvReac Type Severity Reaction Status Date / Time No Known Drug Allergies Allergy Verified 11/21/24 18:03 Review of Systems Status of ROS: Reports: 6 or more systems reviewed and unremarkable except as noted in History and below Exam Narrative: Exam Narrative: Vital signs reviewed In general, an alert, nontoxic male. He is comfortable while at rest, pain with any movement. Head: Normocephalic, atraumatic. Eyes: Sclera clear. Pupils equal and reactive. ENT: Mucous membranes moist. Neck: Supple without adenopathy. Heart: Regular rate and rhythm without murmur. Lungs: Clear. No increased work of breathing, crackles or wheezes. Abdomen: Soft, nontender to palpation. Extremities: Well perfused, pulses intact. No significant edema. Neurologic: Alert, conversant. Speech fluent, face symmetric. Moves all extremities equally. Skin: Warm, dry well perfused. Affect: Normal. Const: Vital Signs, click to edit/add: Vital Signs - 24 hr 11/21/24 17:58 11/21/24 19:48 11/21/24 19:52 Temperature Pulse Rate 65 69 Pulse Rate [Right Pulse Oximeter] 59 L Respiratory Rate 18 7 L Blood Pressure 155/90 H 141/88 H Blood Pressure [Ri ght Upper Arm] 154/80 H Pulse Oximetry 98 100 99 Oxygen Delivery Me thod Room Air Room Air Room Air Oxygen Flow Rate 11/21/24 19:57 11/21/24 20:00 11/21/24 20:00 Temperature Pulse Rate Pulse Rate [Right Pulse Oximeter] Respiratory Rate 16 Blood Pressure 154/81 H Blood Pressure [Ri ght Upper Arm] Pulse Oximetry 99 99 Oxygen Delivery Me thod Room Air Nasal Cannula Oxygen Flow Rate 1 11/21/24 20:02 11/21/24 20:07 11/21/24 20:12 Temperature Pulse Rate 74 75 74 Pulse Rate [Right Pulse Oximeter] Respiratory Rate 14 5 L 15 Blood Pressure 139/82 159/83 H 126/92 H Blood Pressure [Ri ght Upper Arm] Pulse Oximetry 100 99 98 Oxygen Delivery Me thod Nasal Cannula Nasal Cannula Nasal Cannula Oxygen Flow Rate 1 1 1 11/21/24 20:16 11/21/24 20:17 11/21/24 20:25 Temperature 97.8 F Pulse Rate 71 67 Pulse Rate [Right Pulse Oximeter] Respiratory Rate 17 11 L Blood Pressure 129/71 Blood Pressure [Ri ght Upper Arm] Pulse Oximetry 98 99 Oxygen Delivery Me thod Nasal Cannula Room Air Oxygen Flow Rate 1 11/21/24 20:30 11/21/24 20:31 11/21/24 20:39 Temperature Pulse Rate 66 68 70 Pulse Rate [Right Pulse Oximeter] Respiratory Rate 17 Blood Pressure 146/81 H 135/78 Blood Pressure [Ri ght Upper Arm] Pulse Oximetry 98 97 99 Oxygen Delivery Me thod Room Air Room Air Nasal Cannula Oxygen Flow Rate 1 11/21/24 20:42 11/21/24 20:45 11/21/24 20:47 Temperature Pulse Rate 72 70 65 Pulse Rate [Right Pulse Oximeter] Respiratory Rate 0 L 12 15 Blood Pressure 152/77 H 133/53 L Blood Pressure [Ri ght Upper Arm] Pulse Oximetry 93 98 98 Oxygen Delivery Me thod Ambu-Bag Nasal Cannula Nasal Cannula Oxygen Flow Rate 15 2 1 11/21/24 20:48 11/21/24 20:52 11/21/24 20:53 Temperature Pulse Rate 66 76 68 Pulse Rate [Right Pulse Oximeter] Respiratory Rate 16 16 19 Blood Pressure 128/67 Blood Pressure [Ri t Upper Arm] Pulse Oximetry 97 98 99 Oxygen Delivery Me thod Room Air Room Air Room Air Oxygen Flow Rate 11/21/24 21:00 11/21/24 21:02 11/21/24 21:15 Temperature Pulse Rate 65 67 64 Pulse Rate [Right Pulse Oximeter] Respiratory Rate 16 17 14 Blood Pressure 128/75 Blood Pressure [Ri t Upper Arm] Pulse Oximetry 95 98 100 Oxygen Delivery Me thod Room Air Room Air Room Air Oxygen Flow Rate 11/21/24 21:18 Temperature Pulse Rate 65 Pulse Rate [Right Pulse Oximeter] Respiratory Rate Blood Pressure 134/79 Blood Pressure [Ri t Upper Arm] Pulse Oximetry 100 Oxygen Delivery Me thod Room Air Oxygen Flow Rate Course Course ED Course: On initial arrival, he had 0.5 mg of Dilaudid, x-rays were obtained which confirmed the dislocation of the left hip, no obvious fracture. Unfortunately, secondary to significant volume and acuity in the emergency department, I was not able to get back to him for probably 90 minutes to 2 hours to attempt reduction. He did report being comfortable in that time. I was able to talk with him about the procedure, we reviewed risks and benefits of sedation to include over-sedation, need for airway management, aspiration, as well as risks of reduction such as periprosthetic factor, failure to reduce. Consent was signed, questions answered. He was maintained on cardiac, end-tidal CO2 and oxygen monitoring throughout. Procedure note: Dr. Cottrell provided sedation, please see his note for details. Initially was given 80 mg of propofol fall, had good relaxation and sedation with this. MARYLIN cr flexed his knee, put traction anteriorly on the hip, felt a substantial clunk and was able to lower the leg, length appeared equal. We let him wake up but he complained of ongoing pain, x-ray show failure to reduce. Therefore, we repeated the procedure, again had 80 mg of propofol, tolerated this well. This time after the initial clunk I kept going and felt a 2nd clunk. X-rays confirm reduction. He awakened without difficulty. He says the hip feels good, he is ambulatory without pain. He is able to be discharged. We reviewed keep activity to a minimum over the next few days, he will talk with his orthopedist who is I believe in [place] about further restrictions etcetera. Return any time for recurrent problems. Declined the need for anything for pain. Vital Signs Vital signs: Initial Vital Signs Pulse Rate 59 L 11/21/24 17:58 Pulse Rhythm Regular 11/21/24 17:58 Pulse Strength 3+ Normal 11/21/24 17:58 Respiratory Rate 18 11/21/24 17:58 Blood Pressure 154/80 H 11/21/24 17:58 Blood Pressure Mean 104 11/21/24 17:58 Blood Pressure Position Semi-Fowlers 11/21/24 17:58 Pulse Oximetry 98 11/21/24 17:58 Oxygen Delivery Method Room Air 11/21/24 17:58 Vital Signs Pulse Rate 59 L 11/21/24 17:58 Respiratory Rate 18 11/21/24 17:58 Blood Pressure 154/80 H 11/21/24 17:58 Pulse Oximetry 98 11/21/24 17:58 Oxygen Delivery Method Room Air 11/21/24 17:58 Temperature 97.8 F 11/21/24 20:25 Pulse Rate 65 11/21/24 21:18 Respiratory Rate 14 11/21/24 21:15 Blood Pressure 134/79 11/21/24 21:18 Pulse Oximetry 100 11/21/24 21:18 Oxygen Delivery Method Room Air 11/21/24 21:18 Oxygen Flow Rate 1 11/21/24 20:47 Medications Administered Medications: Discontinued Medications Generic Name Dose Route Start Last Admin Trade Name Freq PRN Reason Stop Dose Admin Hydromorphone HCl 0.5 mg 11/21/24 18:22 11/21/24 19:04 Hydromorphone 0.5 Mg/0.5 Ml Inj IVP 11/21/24 18:23 0.5 mg ONCE ONE Administration Sodium Chloride 500 mls @ 500 mls/hr 11/21/24 18:22 11/21/24 20:21 0.9 % Sodium Chloride 500 Ml IV 11/21/24 19:21 Infused .Q1H ONE Infusion Sodium Chloride 500 mls @ 500 mls/hr 11/21/24 20:58 11/21/24 21:40 0.9 % Sodium Chloride 500 Ml IV 11/21/24 21:57 Infused .Q1H ONE Infusion Propofol 200 mg 11/21/24 19:37 11/21/24 20:30 Propofol 10 Mg/Ml Inj IVP 11/21/24 19:38 160 mg ONCE ONE Administration Discharge Plan Discharge Clinical Impression: Anterior dislocation of left hip Patient Disposition: Home, Self-Care Condition: Improved Instructions: Hip Dislocation (ED) Additional Instructions: Take it easy over the next few days, no heavy lifting or vigorous activity. Check in with your orthopedist as discussed. Return as needed for further problems. Prescriptions: No Action losartan 50 mg tablet DAILY atorvastatin 80 mg tablet DAILY metoprolol succinate 50 mg tablet extended release 24 hr PO DAILY Follow Up/Referrals: Tawny River MD [Primary Care Provider] - Stand Alone Forms: [employer] Info Instructions
== END 2024-11-21 22:03 | disposition home or self-care (01) ==
PROVIDERS: Emergency Provider Emergency Medicine; PCP Student in an Organized Health Care Education/Training Program
DX: S73.035A Other anterior dislocation of left hip, initial encounter (principal)
CPT/HCPCS: 27265; 72170; 73502; 94761; 96374; 99284; 99291; J1171; J2704; J7030